=== PATIENT | female | born 1975 | race Caucasian/White ===

== ENCOUNTER 2016-05-23 10:21 | Emergency (ER) | payer OTHER ==
[2016-05-23 10:42] VITALS: BP 167/92
[2016-05-23] MEDS ORDERED: Lidocaine 1% with EPINEPHrine 1:100,000 50 ML MDV INFILT STA (10:50)
--- NOTE | 2016-05-23 11:18 | EDM.PDOC ---
ED HPI ENT - General Chief Complaint: ENT Problem Stated Complaint: CHIN SWELLING, THROAT HURTS Time Seen by Provider: 05/23/16 10:39 Source: Reports: Patient History Limitations: Reports: No limitations - History of Present Illness INITIAL COMMENTS - FREE TEXT/NARRATIVE: History of present illness: [41-year-old female presenting with a tooth abscess that's extending into her right chin. She's had no fevers or chills but she is having a lot of pain. She does not have an appointment with a dentist as of yet.] Review of systems: As per history of present illness and below otherwise all systems reviewed and negative. Past medical history: As per history of present illness and as reviewed below otherwise noncontributory. Surgical history: As per history of present illness and as reviewed below otherwise noncontributory. Social history: No reported history of drug or alcohol abuse. Family history: As per history of present illness and as reviewed below otherwise noncontributory. Physical exam: HEENT: Atraumatic, normocephalic, pupils reactive, negative for conjunctival pallor or scleral icterus, mucous membranes moist, throat clear, neck supple, nontender, trachea midline. No lymphadenopathy. Her dentition are in very poor repair with multiple cavities especially of the lower jaw on the right. She has obvious swelling of the right chin but slightly warm and firm Lungs: Clear to auscultation, breath sounds equal bilaterally Heart: S1S2, regular Abdomen: Soft, nondistended, nontender. Negative for masses or hepatosplenomegaly. Extremities: Atraumatic, Neuro: Awake, alert, oriented. Cranial nerves II through XII unremarkable. Cerebellum unremarkable. Exam nonfocal. Diagnostics: [After chlorhexidine prep 2 mL of 1% lidocaine with epinephrine was injected into the swollen area of her chin and an 18-gauge introduced into this presumed abscess in 2 locations but no pus was returned] Therapeutics: [] Impression: [Abscess extending into the chin] Plan: [She is placed on Pen-Vee K 500 mg 1 by mouth 4 times a day for 10 days and [place] 5/325 one to 2 by mouth every 4 hours when necessary pain #20 no refill she will need to followup with a dentist. She will also need to put hot packs on this swollen area of her chin] Definitive disposition and diagnosis as appropriate pending reevaluation and review of above. 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: Musculoskeletal History: Reports: Fracture - Infectious Disease History Infectious Disease History: Reports: Chicken pox - Past Surgical History GI Surgical History: Reports: Bariatric procedure, Cholecystectomy Female Surgical History: Reports: section Musculoskeletal Surgical History: Reports: Other (see below) Other Musculoskeletal Surgeries/Procedures:: surgery on right ankle Social & Family History - Tobacco Use Smoking Status *Q: Current Every Day Smoker Years of Tobacco use: 2 Packs/Tins Daily: 0.5 - Caffeine Use Caffeine Use: Reports: Soda - Recreational Drug Use Recreational Drug Use: No ED ROS ENT - Review of Systems Review Of Systems: ROS reveals no pertinent complaints other than HPI. ED EXAM, ENT - Physical Exam Exam: See Below Course - Vital Signs Last Recorded V/S: Last Vital Signs Temp 36.9 C 05/23/16 10:41 Pulse 86 05/23/16 10:41 Resp 14 05/23/16 10:41 BP 167/92 H 05/23/16 10:41 Pulse Ox 96 05/23/16 10:41 - Orders/Labs/Meds Meds: Medications Discontinued Medications Generic Name Dose Route Start Last Admin Trade Name Freq PRN Reason Stop Dose Admin Lidocaine/Epinephrine 10 ml 05/23/16 10:50 05/23/16 10:59 Xylocaine 1% With Epinephrine 1:100,000 INFILT 05/23/16 10:51 10 ml NOW STA Administration Departure - Departure Time of Disposition: 11:17 Disposition: Home, Self-Care 01 Condition: good Clinical Impression: Abscessed tooth Forms: ED Department Discharge Additional Instructions: Please use hot packs on your swollen chin 4 times a day 20 minutes at a time. It may come to ahead and drain out pus which would be a good thing to happen. You will need to follow up with a dentist so for definitive care.
== END 2016-05-23 11:24 | disposition home or self-care (01) ==
LOC: JP.ED 10:21
DX: K04.7 Periapical abscess without sinus (principal); F17.210 Nicotine dependence, cigarettes, uncomplicated; Z88.1 Allergy status to other antibiotic agents; Z79.899 Other long term (current) drug therapy; Z90.49 Acquired absence of other specified parts of digestive tract; Z98.890 Other specified postprocedural states
CPT/HCPCS: 41800; 99283-25

== ENCOUNTER 2016-07-28 08:26 | Day surgery (SDC) | payer OTHER ==
[~2016-07-28 08:26] MED LIST: Glycopyrrolate 0.2 MG/ML 2 ML SYRINGE IVPUSH ONE
[2016-07-28] MEDS ORDERED: fentaNYL 100 MCG/2 ML SDV ONE (08:27)
[2016-07-28] MEDS ORDERED: Propofol 200 MG/20 ML SDV ONE (08:27)
[2016-07-28] MEDS ORDERED: Midazolam 1 MG/ML 2 ML SDV ONE (08:28)
[2016-07-28] MEDS ORDERED: Lactated Ringers 1,000 ML IV SCH (08:30)
[2016-07-28] MEDS ORDERED: Glycopyrrolate 0.2 MG/ML 2 ML SYRINGE IVPUSH ONE (09:00)
[2016-07-28] MEDS ORDERED: Cyanocobalamin (Vitamin B12) 1,000 MCG/ML SDV IM ONE (09:00)
[2016-07-28] MEDS ORDERED: MVI, Adult with Vitamin K 10 ML, Thiamine 200 MG, Chromium/Copper/Mang/Selen/Zn 1 ML in... IV ONE ×4 (09:30)
[2016-07-28] MEDS ORDERED: Sodium Chloride 0.9% 1,000 ML IV SCH (09:39)
[2016-07-28] MEDS ORDERED: Hydrocortisone Sodium Succinate 100 MG/2 ML SDV IV PRN (15:00)
[2016-07-28] MEDS ORDERED: Famotidine 20 MG/2 ML SDV IV PRN (15:00)
[2016-07-28] MEDS ORDERED: diphenhydrAMINE 50 MG/ML SDV IVPUSH PRN (15:00)
[2016-07-28 15:26] VITALS: BP 140/73
--- NOTE | 2016-08-07 12:27 | OR ---
DATE OF PROCEDURE: 07/28/2016 PREOPERATIVE DIAGNOSIS: Anemia status post gastric bypass. POSTOPERATIVE DIAGNOSIS: Anemia status post gastric bypass with normal upper GI endoscopic examination, status post gastric bypass. OPERATIVE PROCEDURE: Upper GI endoscopy with biopsies of gastric pouch for CLOtest. ANESTHESIA: IV sedation. INDICATION FOR PROCEDURE: This is a 41-year-old female status post previous Iman-en-Y gastric bypass, presenting with profound anemia with hemoglobin of 6.6 and a very low ferritin level. The patient is admitted today for transfusion of 2 units packed RBCs along with iron infusion and an upper endoscopy. Potential risks of the upper endoscopy including bleeding and perforation were discussed, and the patient wishes to proceed. DETAILS OF PROCEDURE: The patient was taken to the operating room and placed in a left lateral decubitus position. IV sedation was administered, after which the upper GI endoscope was passed orally through the length of esophagus into the gastric pouch and from there through the gastrojejunostomy, 20 cm into the Iman limb. The findings included a normal appearing upper GI endoscopy. The esophagus, EG junction, gastric pouch, gastrojejunostomy, and Iman limb were all entirely normal with no areas of stricturing or inflammation and no blood or bleeding seen. The scope was then withdrawn till the gastric pouch where biopsies taken for CLOtest for H. pylori. Minimal bleeding from the biopsy site was seen and the procedure then concluded. The patient will be receiving the blood transfusion and Feraheme today and reschedule for another infusion of Feraheme in 1 week. She will also be started on Vitron-C 1 q.d. She has not been on any iron supplementation previously. She may have some gastritis or bleeding from the bypassed portion of the stomach or duodenum. Given this, we will get her on omeprazole 20 mg a day and she should be following up with Kathryn Wright in 2 weeks with a CBC and ferritin level to be obtained at that time. Errol Gonsalez MD /[id number]
== END 2016-07-28 16:14 | disposition home or self-care (01) ==
LOC: JP.SDS 08:26
PROVIDERS: ATTEND Surgery
DX: D64.9 Anemia, unspecified (principal); Z98.84 Bariatric surgery status; Z88.1 Allergy status to other antibiotic agents; Z88.8 Allergy status to other drugs, medicaments and biological substances
CPT/HCPCS: 36415; 36430; 43239; 82728; 86850; 86900; 86901; 86920; 86922; 87081; J2250; J2704; J3010; J3411; J3420; J7030; J7040; J7120; P9016; Q0138

== ENCOUNTER 2016-08-08 15:50 | Emergency (ER) | payer OTHER ==
[2016-08-08] MEDS ORDERED: HYDROmorphone 0.5 MG/0.5 ML Syringe IVPUSH ONE (16:37)
[2016-08-08] MEDS ORDERED: Ondansetron 4 MG/2 ML SDV IVPUSH ONE (16:37)
[2016-08-08] MEDS ORDERED: Sodium Chloride 0.9% 1,000 ML IV SCH (16:45)
--- NOTE | 2016-08-08 16:46 | EDM.PDOC ---
ED HPI GENERAL MEDICAL PROBLEM - General Chief Complaint: Abdominal Pain Stated Complaint: SEVERE ABD PAIN Time Seen by Provider: 08/08/16 16:20 Source of Information: Reports: Patient History Limitations: Reports: No Limitations - History of Present Illness INITIAL COMMENTS - FREE TEXT/NARRATIVE: Patient presents today with complaints of acute abdominal pain that started today while she was at work. Ewelina states the pain was so severe that it made her stop what she was doing and was not able to ambulate. She attempted to have a bowel movement and felt a great deal of pressure without any results. She reports the pain as constant pressure is sharp and stabbing. She did have a BM this am, small pieces in small amount. She reports feelings of bloat for the past 24 to 48 hours. Last PO intake 1030 today a few bites of a burrito. 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) (She has tried OTC laxatives without result) - Related Data Allergies Allergy/AdvReac Type Severity Reaction Status Date / Time doxycycline Allergy Rash Verified 08/04/16 10:42 erythromycin base Allergy Rash Verified 08/04/16 10:42 procaine [From Novocain] Allergy Rash Verified 08/04/16 10:42 Home Meds: Home Meds Cyanocobalamin (Vitamin B-12) [Vitamin B12] 5,000 mcg PO DAILY 12/02/15 [History ] Multivitamin [Multi-Vitamin Daily] 1 tab PO DAILY 12/02/15 [History] Iron,Carbonyl/Ascorbic Acid [Vitron-C Tablet] 1 each PO DAILY 08/04/16 [History] Past Medical History Gastrointestinal History: Reports: Other (See Below) Other Gastrointestinal History: RNY 2002 Genitourinary History: Reports: None 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: Musculoskeletal History: Reports: Fracture Endocrine/Metabolic History: Reports: Vitamin D Deficiency Hematologic History: Reports: Anemia, B12 Deficiency - Infectious Disease History Infectious Disease History: Reports: Chicken Pox - Past Surgical History HEENT Surgical History: Reports: Oral Surgery GI Surgical History: Reports: Bariatric Procedure, Cholecystectomy, Colonoscopy , EGD Female Surgical History: Reports: Section, Tubal Ligation Social & Family History - Family History Cardiac: Reports: [place] - Tobacco Use Smoking Status *Q: Current Every Day Smoker Years of Tobacco use: 3 Packs/Tins Daily: 1 Used Tobacco, but Quit: No Second Hand Smoke Exposure: Yes - Caffeine Use Caffeine Use: Reports: Soda - Recreational Drug Use Recreational Drug Use: No ED ROS GENERAL - Review of Systems Review Of Systems: See Below Constitutional: Reports: Decreased Appetite, Other (Abdominal bloating and acute severe pain. ). Denies: Fever, Chills, Malaise, Weakness, Fatigue HEENT: Reports: No Symptoms, Contact Lenses (Has recently had two iron infusion and blood transfusion for low hgb. She is currently taking B12, iron supplement. ) Respiratory: Denies: Shortness of Breath, Wheezing, Cough, Sputum Cardiovascular: Denies: Chest Pain, Blood Pressure Problem, Dyspnea on Exertion , Edema, Lightheadedness, Palpitations, PND, Syncope Endocrine: Reports: No Symptoms GI/Abdominal: Reports: Abdominal Pain, Constipation, Decreased Appetite, Distension, Flatus, Nausea. Denies: Black Stool, Bloody Stool, Diarrhea, Hematemesis, Hematochezia, Mucous in Stool, Stool Incontinence, Vomiting : Reports: No Symptoms Musculoskeletal: Reports: No Symptoms Skin: Denies: Cyanosis, Bruising, Rash, Erythema, Lesions Neurological: Reports: No Symptoms Psychiatric: Reports: No Symptoms Hematologic/Lymphatic: Reports: No Symptoms Immunologic: Reports: No Symptoms ED EXAM, GI/ABD - Physical Exam Exam: See Below Exam Limited By: No Limitations General Appearance: Alert, WD/WN, Moderate Distress Eyes: Bilateral: Normal Appearance Ears: Normal External Exam, Normal Canal, Hearing Grossly Normal, Normal TMs Nose: Normal Inspection, Normal Mucosa, No Blood Throat/Mouth: Normal Inspection, Normal Lips, Normal Teeth, Normal Gums, Normal Oropharynx, Normal Voice, No Airway Compromise Head: Atraumatic, Normocephalic Neck: Normal Inspection, Supple, Non-Tender, Full Range of Motion Respiratory/Chest: No Respiratory Distress, Lungs Clear, Normal Breath Sounds, No Accessory Muscle Use, Chest Non-Tender Cardiovascular: Normal Peripheral Pulses, Regular Rate, Rhythm, No Edema, No Gallop, No Murmur, No Rub GI/Abdominal: No Mass, Tenderness, Distention, Other (Decreased bowel sounds to RUQ/LLQ. ). No: Guarding, Rebound, Rigidity Back Exam: Normal Inspection, Full Range of Motion. No: CVA Tenderness (R), CVA Tenderness (L), Decreased Range of Motion Extremities: Normal Inspection, Normal Range of Motion, Non-Tender, No Pedal Edema, Normal Capillary Refill Neurological: Alert, Oriented, CN II-XII Intact, Normal Cognition, Normal Gait, No Motor/Sensory Deficits Psychiatric: Normal Affect, Normal Mood Skin Exam: Warm, Dry, Intact, Normal Color, No Rash Lymphatic: No Adenopathy Course - Vital Signs Last Recorded V/S: Last Vital Signs Temp 36.2 C 08/08/16 17:13 Pulse 81 08/08/16 17:13 Resp 16 08/08/16 17:13 BP 151/94 H 08/08/16 17:13 Pulse Ox 98 08/08/16 17:13 - Orders/Labs/Meds Orders: Active Orders 24 hr Category Date Time Status Abdomen Pelvis w Cont [CT] Stat Exams 08/08/16 16:44 Taken Labs: Laboratory Tests 08/08/16 08/08/16 08/08/16 Range/Units 16:47 16:47 16:53 WBC 6.3 (4.5-11.0) K/uL RBC 4.44 (3.30-5.50) M/uL Hgb 10.3 L (12.0-15.0) g/dL Hct 34.1 L (36.0-48.0) % MCV 77 L (80-98) fL MCH 23 L (27-31) pg MCHC 30 L (32-36) % Plt Count 305 (150-400) K/uL Neut % (Auto) 75 H (36-66) % Lymph % (Auto) 16 L (24-44) % [place] % (Auto) 7 H (2-6) % Eos % (Auto) 2 (2-4) % Baso % (Auto) 0 (0-1) % Sodium 132 L (140-148) mmol/L Potassium 3.5 L (3.6-5.2) mmol/L Chloride 98 L (100-108) mmol/L Carbon Dioxide 25 (21-32) mmol/L Anion Gap 12.5 (5.0-14.0) mmol/L BUN 4 L (7-18) mg/dL Creatinine 0.6 (0.6-1.0) mg/dL Est Cr Clr Drug Dosing 108.79 mL/min Estimated GFR (MDRD) > 60 (>60) Glucose 91 (74-106) mg/dL Calcium 9.0 (8.5-10.1) mg/dL Total Bilirubin 0.5 (0.2-1.0) mg/dL AST 36 (15-37) U/L ALT 42 (12-78) U/L Alkaline Phosphatase 57 (46-116) U/L Total Protein 7.6 (6.4-8.2) g/dL Albumin 3.8 (3.4-5.0) g/dL Globulin 3.8 H (2.3-3.5) g/dL Albumin/Globulin Ratio 1.0 L (1.2-2.2) Urine Color Yellow Urine Appearance Clear Urine pH 5.0 (4.5-8.0) Ur Specific [place] 1.020 (1.008-1.030) Urine Protein Negative (NEGATIVE) mg/dL Urine Glucose (UA) Normal (NEGATIVE) mg/dL Urine Ketones Negative (NEGATIVE) mg/dL Urine Occult Blood Negative (NEGATIVE) Urine Nitrite Negative (NEGATIVE) Urine Bilirubin Negative (NEGATIVE) Urine Urobilinogen Normal (NORMAL) mg/dL Ur Leukocyte Esterase Negative (NEGATIVE) Urine RBC 0-5 (0-5) Urine WBC 0-5 (0-5) Ur Epithelial Cells Few Amorphous Sediment Not seen Urine Bacteria Not seen Urine Mucus Rare Lab work reviewed with patient, all her questions answered. Meds: Medications Discontinued Medications Generic Name Dose Route Start Last Admin Trade Name Freq PRN Reason Stop Dose Admin Hydromorphone HCl 0.5 mg 08/08/16 16:37 08/08/16 17:03 Dilaudid IVPUSH 08/08/16 16:38 0.5 mg ONETIME ONE Administration Sodium Chloride 1,000 mls @ 125 mls/hr 08/08/16 16:45 08/08/16 17:04 Normal Saline IV 125 mls/hr ASDIRECTED BILLY Administration Sodium Chloride 78 mls @ 3 mls/sec 08/08/16 17:13 Normal Saline IV 08/08/16 17:14 ONETIME ONE Iopamidol 124 ml 08/08/16 17:15 08/08/16 17:27 Isovue-300 (61%) IV 150 ml . DIRECTED BILLY Administration Ondansetron HCl 4 mg 08/08/16 16:37 08/08/16 17:03 Zofran IVPUSH 08/08/16 16:38 4 mg ONETIME ONE Administration Sodium Chloride 10 ml 08/08/16 17:13 08/08/16 17:27 Saline Flush FLUSH 10 ml ONETIME PRN Administration PER RADIOLOGY PROTOCOL - Re-Assessments/Exams Free Text/Narrative Re-Assessment/Exam: 08/08/16 18:10 Patient resting on stretcher, reports nausea and pain have improved. Awaiting CT results. Departure - Departure Time of Disposition: 19:16 Disposition: Home, Self-Care 01 Condition: fair Clinical Impression: Abdominal pain, Constipation - Discharge Information Instructions: Constipation, Adult, [id number] Referrals: Rick James MD [Primary Care Provider] - Forms: ED Department Discharge Additional Instructions: Patient CT scan identified constipation and 4 cm cyst to left ovary. You can take docusate sodium 100mg by mouth twice a day for constipation. You can also take miralax 1 capful in 8oz of water or juice twice a day for 1 to 2 days and then daily to promote bowel movement. Docusate sodium and miralax can be bought over the counter. Keep yourself hydrated. Follow up as directed with your primary provider. You may take ibuprofen or acetaminophen for pain as needed. - My Orders Last 24 Hours: My Active Orders 08/08/16 16:44 Abdomen Pelvis w Cont [CT] Stat - Assessment/Plan Last 24 Hours: My Active Orders 08/08/16 16:44 Abdomen Pelvis w Cont [CT] Stat Assessment:: Significant increase in recent intake of iron supplementation. Constipation, left ovarian cyst. Plan: Patient will be treated for constipation. She will return to her primary care provider as directed.
[2016-08-08] MEDS ORDERED: Sodium Chloride 0.9% 10 ML Syringe FLUSH PRN (17:13)
[2016-08-08 17:15] VITALS: BP 151/94
[2016-08-08] MEDS ORDERED: Iopamidol 612 MG/ML 150 ML Bottle IV SCH (17:15)
== END 2016-08-08 19:27 | disposition home or self-care (01) ==
LOC: JP.ED 15:50
DX: R10.9 Unspecified abdominal pain (principal); K59.00 Constipation, unspecified; F17.210 Nicotine dependence, cigarettes, uncomplicated; Z79.899 Other long term (current) drug therapy; Z90.49 Acquired absence of other specified parts of digestive tract; Z98.84 Bariatric surgery status; Z98.51 Tubal ligation status; Z88.1 Allergy status to other antibiotic agents
CPT/HCPCS: 36415; 74177; 80053; 81001; 85025; 96361; 96374; 96375; 99284; J1170; J2405; J7040; J7050

== ENCOUNTER 2017-11-20 11:00 | Emergency (ER) | payer SELFPAY ==
[2017-11-20 11:14] VITALS: BP 178/109
[2017-11-20] MEDS ORDERED: Ibuprofen 800 MG Tab PO ONE (11:18)
[2017-11-20] MEDS ORDERED: Acetaminophen/HYDROcodone 325-5 MG Tab PO ONE (11:56)
--- NOTE | 2017-11-20 12:04 | EDM.PDOC ---
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 Pain to the right hand with ecchymosis and edema. Left Hand Pain Score (Numeric/FACES): 8 - Related Data Allergies Allergy/AdvReac Type Severity Reaction Status Date / Time doxycycline Allergy Rash Verified 08/04/16 10:42 erythromycin base Allergy Rash Verified 08/04/16 10:42 procaine [From Novocain] Allergy Rash Verified 08/04/16 10:42 Home Meds: Home Meds Cyanocobalamin (Vitamin B-12) [Vitamin B12] 5,000 mcg PO DAILY 12/02/15 [History ] Multivitamin [Multi-Vitamin Daily] 1 tab PO DAILY 12/02/15 [History] Iron,Carbonyl/Ascorbic Acid [Vitron-C Tablet] 1 each PO DAILY 08/04/16 [History] Past Medical History Gastrointestinal History: Reports: Other (See Below) Other Gastrointestinal History: RNY 2002 Genitourinary History: Reports: None 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: Musculoskeletal History: Reports: Fracture Endocrine/Metabolic History: Reports: Vitamin D Deficiency Hematologic History: Reports: Anemia, B12 Deficiency - Infectious Disease History Infectious Disease History: Reports: Chicken Pox - Past Surgical History HEENT Surgical History: Reports: Oral Surgery GI Surgical History: Reports: Bariatric Procedure, Cholecystectomy, Colonoscopy , EGD Female Surgical History: Reports: Section, Tubal Ligation Social & Family History - Family History Cardiac: Reports: [place] - Tobacco Use Smoking Status *Q: Current Every Day Smoker Years of Tobacco use: 5 Packs/Tins Daily: 1 - Caffeine Use Caffeine Use: Reports: Coffee - Alcohol Use Number of Drinks Per Day: 2 Review of Systems - Review of Systems Review Of Systems: See Below Constitutional: Reports: No Symptoms Eyes: Reports: No Symptoms Ears: Reports: No Symptoms Nose: Reports: No Symptoms Respiratory: Reports: No Symptoms Cardiovascular: Reports: No Symptoms GI/Abdominal: Reports: No Symptoms Musculoskeletal: Reports: Hand Pain, Other (Right hand pain/crush injury) Skin: Reports: Bruising, Other (ecchymosis) Neurological: Reports: No Symptoms Psychiatric: Reports: No Symptoms ED EXAM, GENERAL - Physical Exam Exam: See Below Free Text/Narrative:: Ewelina is an alert and oriented 42 year old female 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 Exam Limited By: No Limitations General Appearance: Alert, WD/WN, Mild Distress Eye Exam: Bilateral Eye: EOMI, Normal Inspection Ears: Normal External Exam, Normal Canal, Hearing Grossly Normal, Normal TMs Throat/Mouth: Normal Inspection, Normal Lips, Normal Teeth, Normal Gums, Normal Oropharynx, Normal Voice, No Airway Compromise Head: Atraumatic, Normocephalic Neck: Normal Inspection, Supple, Non-Tender, Full Range of Motion. No: Lymphadenopathy (R), Lymphadenopathy (L) Respiratory/Chest: No Respiratory Distress, Lungs Clear, Normal Breath Sounds, No Accessory Muscle Use, Chest Non-Tender Cardiovascular: Normal Peripheral Pulses, Regular Rate, Rhythm, No Edema, No Murmur, No Rub Peripheral Pulses: 2+: Radial (L), Radial (R), Dorsalis Pedis (L), Dorsalis Pedis (R) GI/Abdominal: No Distention Back Exam: Normal Inspection, Full Range of Motion. No: CVA Tenderness (R), CVA Tenderness (L) Extremities: No Pedal Edema, Normal Capillary Refill, Other (Decreased ROM, pain /tenderness to Right hand with ecchymosis an slight edema. Full sensation to right fingers x 5. No sign of compartment syndrome. ) Neurological: Alert, Oriented, CN II-XII Intact, Normal Cognition, Normal Gait, Normal Reflexes, No Motor/Sensory Deficits Psychiatric: Normal Affect, Normal Mood Skin Exam: Warm, Dry, Intact, Ecchymosis, Other (slight edema to right dorsum of hand) Lymphatic: No Adenopathy ED TRAUMA EXTREMITY PROCEDURES - Splinting Right Upper Extremity Splint Site: Volar splint to right hand Pre-Procedure NV Status: Normal Post-Procedure NV Status: Normal Splint Material: Fiberglass Splint Design: Volar Applied & Form Fitted By: Provider Provider Post-Splint Application NV Check: NV Status Normal, Good Position Complications: No Course - Vital Signs Last Recorded V/S: Last Vital Signs Temp 36.3 C 11/20/17 11:09 Pulse 111 H 11/20/17 11:09 Resp 18 11/20/17 11:09 BP 178/109 H 11/20/17 11:09 Pulse Ox - Orders/Labs/Meds Orders: Active Orders 24 hr Category Date Time Status Hand Comp Min 3V Rt [CR] Stat Exams 11/20/17 11:18 Taken Meds: Medications Discontinued Medications Generic Name Dose Route Start Last Admin Trade Name Mely PRN Reason Stop Dose Admin Hydrocodone Bitart/Acetaminophen 1 tab 11/20/17 11:56 11/20/17 12:02 [place] 325-5 Mg PO 11/20/17 11:57 1 tab ONETIME ONE Administration Ibuprofen 800 mg 11/20/17 11:18 11/20/17 11:23 Motrin PO 11/20/17 11:19 800 mg ONETIME ONE Administration - Radiology Interpretation Free Text/Narrative:: Right hand x-rays reviewed, wet read. No acute findings/fractures. Images pushed to [facility]. Per Ying ESCOBAR, volar splint to right hand and follow up with ORTHO next Wednesday , Wednesday or . Patient notified, she is in agreement. + Departure - Departure Time of Disposition: 12:15 Disposition: Home, Self-Care 01 Condition: Good Clinical Impression: Crushing injury of right hand - Discharge Information *PRESCRIPTION DRUG MONITORING PROGRAM REVIEWED*: No *COPY OF PRESCRIPTION DRUG MONITORING REPORT IN PATIENT FARHAT: No Instructions: Crush Injury of the Hand Referrals: Rick James MD [Primary Care Provider] - Forms: ED Department Discharge, ED Return to Work/School Form Additional Instructions: You have been evaluated and treated for crush injury to the right hand. No activity with Right hand. No work for 7 days. Rest, splint the hand. Keep splint on at all times until cleared by ORTHO. Ice to the hand for 20 minutes off for 15 minutes as frequently as possible for the first 3 days of injury. Ibuprofen 800mg by mouth three times a day as needed for pain. Acetaminophen 1000mg by mouth three times a day as needed for pain. Keep the hand elevated above to heart to decrease pain and swelling. Follow up with ORTHO Ying Burger or Delio Chen at [facility] next Wednesday, Wednesday or for follow up. Return for worsening, issues or concerns. - My Orders Last 24 Hours: My Active Orders 11/20/17 11:18 Hand Comp Min 3V Rt [CR] Stat - Assessment/Plan Last 24 Hours: My Active Orders 11/20/17 11:18 Hand Comp Min 3V Rt [CR] Stat Assessment:: Crush injury of right hand Plan: Patient evaluated and treated for crush injury to the right hand. No activity with Right hand. No work for 7 days. Rest, splint the hand. Keep splint on at all times until cleared by ORTHO. Ice to the hand for 20 minutes off for 15 minutes as frequently as possible for the first 3 days of injury. Ibuprofen 800mg by mouth three times a day as needed for pain. Acetaminophen 1000mg by mouth three times a day as needed for pain. Keep the hand elevated above to heart to decrease pain and swelling. Follow up with ORTHO Ying Burger or Delio Chen at [facility] next Wednesday, Wednesday or for follow up. Return for worsening, issues or concerns.
--- NOTE | 2017-11-22 08:50 | CR ---
Hand Comp Min 3V Rt CLINICAL HISTORY: Injury FINDINGS: There is some interphalangeal joint space narrowing. There is also some periarticular spur ring at the first MCP joint. There are tiny ossific densities along the radial aspect of the first MC P and phalangeal joints. The these are likely related to osteophytic change. Small avulsions are not excluded. 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 Tiny avulsions felt less likely
== END 2017-11-20 12:36 | disposition home or self-care (01) ==
LOC: JP.ED 11:00
DX: S67.21XA Crushing injury of right hand, initial encounter (principal); F17.210 Nicotine dependence, cigarettes, uncomplicated; Z88.1 Allergy status to other antibiotic agents; Z88.8 Allergy status to other drugs, medicaments and biological substances; W23.1XXA Caught, crushed, jammed, or pinched between stationary objects, initial encounter; Y99.0 Civilian activity done for income or pay
CPT/HCPCS: 29125; 73130; 99284; A9270

== ENCOUNTER 2018-07-13 08:17 | Emergency (ER) | payer BC, OTHER ==
[2018-07-13 08:32] VITALS: BP 135/79
--- NOTE | 2018-07-13 08:56 | EDM.PDOC ---
ED HPI GENERAL MEDICAL PROBLEM - General Chief Complaint: General Stated Complaint: SOB, HEADACHE, POSSIBLE NEEDS BLOOD TRANSFUSION Time Seen by Provider: 07/13/18 08:38 Source of Information: Reports: Patient, Old Records, RN Notes Reviewed History Limitations: Reports: No Limitations - History of Present Illness INITIAL COMMENTS - FREE TEXT/NARRATIVE: 43-year-old female presents emergency department today complaint of fatigue, she has been having difficulty with vaginal bleeding over the last couple weeks has stopped at this time. Has been evaluated by her primary care felt to have iron deficiency anemia started on iron tablets as well as consultation with OB/ DIESEL POWER MECHANIC which happens on the of this month. Was recently checked in the clinic 2 days prior hemoglobin at that time was 7.1. She states she continues to have fatigue feels weak and gets short of breath with any amount of exertion Headache Pain Score (Numeric/FACES): 10 - Related Data Allergies Allergy/AdvReac Type Severity Reaction Status Date / Time doxycycline Allergy Rash Verified 08/04/16 10:42 erythromycin base Allergy Rash Verified 08/04/16 10:42 procaine [From Novocain] Allergy Rash Verified 08/04/16 10:42 Home Meds: Home Meds Cyanocobalamin (Vitamin B-12) [Vitamin B12] 5,000 mcg PO DAILY 12/02/15 [History ] Multivitamin [Multi-Vitamin Daily] 1 tab PO DAILY 12/02/15 [History] Iron,Carbonyl/Ascorbic Acid [Vitron-C Tablet] 1 each PO DAILY 08/04/16 [History] Past Medical History Gastrointestinal History: Reports: Other (See Below) Other Gastrointestinal History: RNY 2002 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: Musculoskeletal History: Reports: Fracture Endocrine/Metabolic History: Reports: Vitamin D Deficiency Hematologic History: Reports: Anemia, B12 Deficiency - Infectious Disease History Infectious Disease History: Reports: Chicken Pox - Past Surgical History HEENT Surgical History: Reports: Oral Surgery GI Surgical History: Reports: Bariatric Procedure, Cholecystectomy, Colonoscopy , EGD Female Surgical History: Reports: Section, Tubal Ligation Social & Family History - Family History Cardiac: Reports: DC - Tobacco Use Smoking Status *Q: Current Every Day Smoker Years of Tobacco use: 5 Packs/Tins Daily: 0.5 - Caffeine Use Caffeine Use: Reports: Soda - Recreational Drug Use Recreational Drug Use: No ED ROS GENERAL - Review of Systems Review Of Systems: See Below Constitutional: Reports: Weakness, Fatigue HEENT: Reports: No Symptoms Respiratory: Reports: Shortness of Breath Cardiovascular: Reports: Chest Pain, Dyspnea on Exertion GI/Abdominal: Reports: Constipation Musculoskeletal: Reports: No Symptoms Skin: Reports: No Symptoms Neurological: Reports: No Symptoms ED EXAM, GENERAL - Physical Exam Exam: See Below Free Text/Narrative:: General: Female, not in any distress, alert and oriented x3 HEENT: head is atraumatic normocephalic, eyes pupils equal round reactive to light, sclera clear pale conjunctiva. Ears tympanic membranes clear and mckeon landmarks and light reflex are present bilaterally canals are clear. Nose no septal deviation , nares are clear, no blood present. Mouth mucosa is moist and pink no erythema or exudate noted in soft palate, tongue is midline uvula is midline, dentition is intact. Neck: Supple no thyromegaly no tracheal deviation. Nodes: Cervical nodes subclavicular nodes nontender no palpable lymphadenopathy noted. Lungs: clear to auscultation bilaterally with symmetrical respirations, no adventitious noise appreciated. CV: Regular rate and rhythm S1 and S2 appreciated no murmurs rubs or gallops noted. Abdomen: Soft, nontender, no palpable masses or organomegaly appreciated, no distention no guarding bowel sounds are present,. Neuro: GCS 15, cranial nerves II through XII intact grossly Skin: Warm and dry, intact Extremities: No lower extremity edema appreciated, Course - Vital Signs Last Recorded V/S: Last Vital Signs Temp 97.7 F 07/13/18 08:31 Pulse 102 H 07/13/18 08:31 Resp 16 07/13/18 08:31 BP 135/79 07/13/18 08:31 Pulse Ox 100 07/13/18 08:31 - Orders/Labs/Meds Orders: Active Orders 24 hr Category Date Time Status EKG Documentation Completion [RC] ASDIRECTED Care 07/13/18 08:54 Active Peripheral IV Care [RC] . DIRECTED Care 07/13/18 08:52 Active COPPER, SERUM Stat Lab 07/13/18 10:54 Ordered FERRITIN [CHEM] Stat Lab 07/13/18 10:54 Ordered FOLATE (FOLIC ACID), SERUM Urgent Lab 07/13/18 10:54 Ordered VITAMIN A, SERUM Stat Lab 07/13/18 10:54 Ordered VITAMIN B12 [CHEM] Stat Lab 07/13/18 10:54 Ordered VITAMIN D,25-HYDROXY [CHEM] Stat Lab 07/13/18 10:54 Ordered ZINC, PLASMA OR SERUM Stat Lab 07/13/18 10:54 Ordered Sodium Chloride 0.9% [Saline Flush] Med 07/13/18 08:52 Active 10 ml FLUSH ASDIRECTED PRN Peripheral IV Insertion Adult [OM.PC] Urgent Oth 07/13/18 08:52 Ordered EKG 12 Lead [EK] Routine Ther 07/13/18 08:54 Ordered Medication Orders Sodium Chloride (Saline Flush) 10 ml FLUSH ASDIRECTED PRN PRN Reason: Keep Vein Open Last Admin: 07/13/18 09:29 Dose: 10 ml Admin: 07/13/18 09:06 Dose: 10 ml Labs: Laboratory Tests 07/13/18 07/13/18 07/13/18 Range/Units 09:09 09:09 09:09 WBC 2.5 L (4.5-11.0) K/uL RBC 2.32 L (3.30-5.50) M/uL Hgb 7.0 L D (12.0-15.0) g/dL Hct 23.1 L (36.0-48.0) % MCV 100 H (80-98) fL MCH 30 (27-31) pg MCHC 30 L (32-36) % Plt Count 172 (150-400) K/uL Neut % (Auto) 66 (36-66) % Lymph % (Auto) 20 L (24-44) % Villalba % (Auto) 13 H (2-6) % Eos % (Auto) 1 L (2-4) % Baso % (Auto) 0 (0-1) % Sodium 139 L (140-148) mmol/L Potassium 3.5 L (3.6-5.2) mmol/L Chloride 103 (100-108) mmol/L Carbon Dioxide 23 (21-32) mmol/L Anion Gap 16.5 H (5.0-14.0) mmol/L BUN 1 L D (7-18) mg/dL Creatinine 0.7 (0.6-1.0) mg/dL Est Cr Clr Drug Dosing 91.32 mL/min Estimated GFR (MDRD) > 60 (>60) Glucose 149 H (74-106) mg/dL Calcium 8.0 L (8.5-10.1) mg/dL Total Bilirubin 0.7 (0.2-1.0) mg/dL AST 218 H D (15-37) U/L ALT 82 H (12-78) U/L Alkaline Phosphatase 250 H D (46-116) U/L Troponin I 0.038 (0.000-0.056) ng/mL NT-Pro-B Natriuret Pep 208 H (5-125) pg/mL Total Protein 5.7 L (6.4-8.2) g/dL Albumin 1.8 L (3.4-5.0) g/dL Globulin 3.9 H (2.3-3.5) g/dL Albumin/Globulin Ratio 0.5 L (1.2-2.2) Meds: Medications Generic Name Dose Route Start Last Admin Trade Name Freq PRN Reason Stop Dose Admin Sodium Chloride 10 ml 07/13/18 08:52 07/13/18 09:29 Saline Flush FLUSH 10 ml ASDIRECTED PRN Administration Keep Vein Open Discontinued Medications Generic Name Dose Route Start Last Admin Trade Name Freq PRN Reason Stop Dose Admin Ketorolac Tromethamine 30 mg 07/13/18 09:10 07/13/18 09:26 Toradol IVPUSH 07/13/18 09:11 30 mg ONETIME ONE Administration Departure - Departure Time of Disposition: 11:00 Disposition: Still A Patient 30 Condition: Fair Clinical Impression: Anemia Qualifiers: Anemia type: other cause Other causes of anemia: other cause, not classified Qualified Code(s): D64.89 - Other specified anemias - Discharge Information Referrals: Rick James MD [Primary Care Provider] - Forms: ED Department Discharge - My Orders Last 24 Hours: My Active Orders 07/13/18 08:52 Peripheral IV Care [RC] . DIRECTED Sodium Chloride 0.9% [Saline Flush] 10 ml FLUSH ASDIRECTED PRN Peripheral IV Insertion Adult [OM.PC] Urgent 07/13/18 08:54 EKG Documentation Completion [RC] ASDIRECTED EKG 12 Lead [EK] Routine 07/13/18 10:54 COPPER, SERUM Stat FERRITIN [CHEM] Stat FOLATE (FOLIC ACID), SERUM Urgent VITAMIN A, SERUM Stat VITAMIN B12 [CHEM] Stat VITAMIN D,25-HYDROXY [CHEM] Stat ZINC, PLASMA OR SERUM Stat - Assessment/Plan Last 24 Hours: My Active Orders 07/13/18 08:52 Peripheral IV Care [RC] . DIRECTED Sodium Chloride 0.9% [Saline Flush] 10 ml FLUSH ASDIRECTED PRN Peripheral IV Insertion Adult [OM.PC] Urgent 07/13/18 08:54 EKG Documentation Completion [RC] ASDIRECTED EKG 12 Lead [EK] Routine 07/13/18 10:54 COPPER, SERUM Stat FERRITIN [CHEM] Stat FOLATE (FOLIC ACID), SERUM Urgent VITAMIN A, SERUM Stat VITAMIN B12 [CHEM] Stat VITAMIN D,25-HYDROXY [CHEM] Stat ZINC, PLASMA OR SERUM Stat Plan: Assessment Acuity = acute Site and laterality = anemia complicated the patient with known history gastric bypass and recent heavy vaginal bleeding Etiology = possibly related to absorption and gastric bypass and vitamin intake Manifestations = dyspnea Location of injury = Home Lab values = WBC low at 2.5 consistent with leukopenia hemoglobin low at 7.0 consistent racker chromic anemia calcium low at 8.0 consistent hypocalcemia AST elevated 218 ALT elevated a 82 consistent elevated liver enzymes troponin in the normal range 0.038 and BNP slightly elevated at 208 EKG demonstrates a sinus rhythm there is no signs of ischemia chest x-ray was unremarkable Plan Discussed the case with Dr. Gonsalez at 1040 recommending iron studies workup transfusion 1 unit as well as the gastric bypass banana bag with extra thymin will also recheck ferritin today if it is low will do iron transfusion This note was dictated using [employer] voice recognition software please call with any questions on syntax or grammar.
[2018-07-13] MEDS: Sodium Chloride 0.9% 10 ML Syringe FLUSH PRN ×2 (09:06→09:29)
[2018-07-13] MEDS ORDERED: Ketorolac 30 MG/ML SDV IVPUSH ONE (09:10)
--- NOTE | 2018-07-13 10:22 | CRLCR ---
INDICATION: Shortness of breath TECHNIQUE: Chest 1 view COMPARISON: None FINDINGS: Cardiovascular and mediastinum: Heart size and vasculature are normal in caliber and appearance. Lungs and pleural spaces: Lungs are clear. No sign of infiltrate or mass. No sign of pleural effusion. No pneumothorax. Bones and soft tissues: No significant findings. IMPRESSION: No acute or significant findings. Dictated by Meir Olivas MD @ Jul 13 2018 10:21AM Signed by Dr. Meir Olivas @ Jul 13 2018 10:22AM
== END 2018-07-13 11:10 | disposition home or self-care (01) ==
LOC: JP.ED 08:17
DX: D64.89 Other specified anemias (principal); F17.210 Nicotine dependence, cigarettes, uncomplicated; Z79.899 Other long term (current) drug therapy; Z88.1 Allergy status to other antibiotic agents; Z88.8 Allergy status to other drugs, medicaments and biological substances
CPT/HCPCS: 36415; 71045; 80053; 82306; 82525; 82607; 82728; 82746; 83880; 84484; 84590; 84630; 85025; 93005; 96374; 99284; J1885

== ENCOUNTER 2018-07-16 05:55 | Inpatient (IN) | payer BC ==
[2018-07-16] MEDS ORDERED: Scopolamine 1.5 MG Transdermal Patch TOP ONE (06:15)
[2018-07-16] MEDS ORDERED: Gabapentin 300 MG Cap PO ONE (06:15)
[2018-07-16] MEDS ORDERED: Acetaminophen 500 MG Tab PO ONE (06:15)
[2018-07-16] MEDS ORDERED: Dextrose 5%-Lactated Ringers 1,000 ML IV SCH ×2 (07:00→12:30)
[2018-07-16] MEDS ORDERED: Albuterol/Ipratropium 3.0-0.5 MG/3 ML Neb Soln NEB ONE (07:00)
[2018-07-16] MEDS ORDERED: cefOXitin 2 GM Vial ONE (07:01)
[2018-07-16] MEDS ORDERED: Ketamine 500 MG/5 ML MDV IV SCH (07:45)
[2018-07-16] MEDS ORDERED: Ketamine 50 MG in Sodium Chloride 0.9% 49.5 ML IV SCH ×4 (07:45)
[2018-07-16] MEDS ORDERED: Rocuronium 50 MG/5 ML Vial ONE (07:49)
[2018-07-16] MEDS ORDERED: Dexamethasone 4 MG/ML SDV ONE (07:49)
[2018-07-16] MEDS ORDERED: Glycopyrrolate 0.2 MG/ML 5 ML MDV ONE (07:49)
[2018-07-16] MEDS ORDERED: Ondansetron 4 MG/2 ML SDV ONE (07:49)
[2018-07-16] MEDS ORDERED: Propofol 200 MG/20 ML SDV ONE (07:49)
[2018-07-16] MEDS ORDERED: Succinylcholine 200 MG/10 ML MDV ONE (07:49)
[2018-07-16] MEDS ORDERED: Neostigmine Methylsulfate 1 MG/ML 5 ML Syringe ONE (07:49)
[2018-07-16] MEDS ORDERED: cefOXitin 2 GM in Sodium Chloride 0.9% 50 ML IV ONE (08:00)
[2018-07-16] MEDS ORDERED: fentaNYL 100 MCG/2 ML SDV ONE (10:17)
[2018-07-16] MEDS ORDERED: Lactated Ringers 1,000 ML ONE (10:31)
[2018-07-16] MEDS ORDERED: hydrOXYzine HCl 100 MG/2 ML SDV IM ONE (11:13)
[2018-07-16] MEDS ORDERED: Naloxone 0.4 MG/ML SDV IV PRN (11:16)
[2018-07-16] MEDS ORDERED: fentaNYL 100 MCG/2 ML SDV IVPUSH ONE (11:19)
[2018-07-16] MEDS: HYDROmorphone/Normal Saline 15 MG/30 ML PCA IV PRN (11:24)
[2018-07-16] MEDS ORDERED: Albuterol/Ipratropium 3.0-0.5 MG/3 ML Neb Soln INH PRN (12:26)
[2018-07-16] MEDS: Gabapentin 300 MG Cap PO SCH ×2 (14:10→20:48)
[2018-07-16] MEDS: Albuterol/Ipratropium 3.0-0.5 MG/3 ML Neb Soln INH SCH ×2 (14:50→20:48)
[2018-07-16] MEDS ORDERED: Lactated Ringers 500 ML IV SCH ×2 (15:00→17:00)
[2018-07-16] MEDS: cefOXitin 2 GM in Sodium Chloride 0.9% 50 ML IV SCH ×2 (16:00→21:41)
[2018-07-16] MEDS ORDERED: Cyanocobalamin (Vitamin B12) 1,000 MCG/ML SDV IM ONE (16:00)
[2018-07-16] MEDS: Sodium Ferric Gluconate Cmplex 250 MG in Sodium Chloride 0.9% 100 ML IV SCH (17:45)
[2018-07-16] MEDS: MVI, Adult with Vitamin K 10 ML, Chromium/Copper/Mang/Selen/Zn 1 ML in Dextrose 5%-Lact... IV SCH ×3 (17:53)
[2018-07-16] MEDS: Pantoprazole 40 MG Vial IVPUSH SCH (17:53)
[2018-07-17] MEDS: cefOXitin 2 GM in Sodium Chloride 0.9% 50 ML IV SCH ×4 (03:33→22:50)
[2018-07-17] MEDS: Albuterol/Ipratropium 3.0-0.5 MG/3 ML Neb Soln INH SCH ×4 (07:18→20:38)
[2018-07-17] MEDS ORDERED: Dextrose 5%-Lactated Ringers 1,000 ML IV SCH (08:30)
[2018-07-17] MEDS: Dextrose 5%-Lactated Ringers 1,000 ML IV SCH (08:45)
[2018-07-17] MEDS: Docusate Sodium 100 MG Cap PO SCH ×2 (08:52→20:38)
[2018-07-17] MEDS: Gabapentin 300 MG Cap PO SCH ×3 (08:53→20:38)
[2018-07-17] MEDS: Magnesium Sulfate/Water 2 GM in Premix Bag 1 BAG IV SCH ×3 (09:33→22:49)
--- NOTE | 2018-07-17 13:15 | PN ---
DATE OF SERVICE: 07/17/2018 The patient had been afebrile with stable vital signs. Urine output was found to be a little bit on the low side and she received some extra bolus of albumin and transfusion of packed RBCs. Clinically, she is otherwise doing well. We will give her 1 more unit of packed RBCs for hemoglobin 9 and she will also be getting her second iron infusion today and begin a full liquid diet. Magnesium is low and that will be supplemented. The patient begin a full liquid diet. Errol Gonsalez MD /[id number]
[2018-07-17] MEDS: Pantoprazole 40 MG Vial IVPUSH SCH (16:29)
[2018-07-17] MEDS: MVI, Adult with Vitamin K 10 ML, Chromium/Copper/Mang/Selen/Zn 1 ML in Dextrose 5%-Lact... IV SCH ×3 (17:11)
[2018-07-17] MEDS: Sodium Ferric Gluconate Cmplex 250 MG in Sodium Chloride 0.9% 100 ML IV SCH (18:00)
[2018-07-18] MEDS: HYDROmorphone/Normal Saline 15 MG/30 ML PCA IV PRN (00:33)
[2018-07-18] MEDS: Magnesium Sulfate/Water 2 GM in Premix Bag 1 BAG IV SCH ×4 (03:31→21:49)
[2018-07-18] MEDS: hydrOXYzine HCl 100 MG/2 ML SDV IM PRN ×3 (07:01→19:17)
[2018-07-18] MEDS: Albuterol/Ipratropium 3.0-0.5 MG/3 ML Neb Soln INH SCH ×4 (07:15→20:41)
[2018-07-18] MEDS: Bisacodyl 5 MG Tab PO SCH ×2 (08:39→20:40)
[2018-07-18] MEDS: Gabapentin 300 MG Cap PO SCH ×3 (08:40→20:40)
[2018-07-18] MEDS: Docusate Sodium 100 MG Cap PO SCH ×2 (08:40→20:40)
--- NOTE | 2018-07-18 12:36 | OR ---
DATE OF PROCEDURE: 07/16/2018 PREOPERATIVE DIAGNOSIS: Severe menometrorrhagia resulting in marked anemia, secondary to fibroid uterus. POSTOPERATIVE DIAGNOSES: 1. Severe menometrorrhagia resulting in marked anemia, secondary to fibroid uterus. 2. Focal pelvic endometriosis. 3. Extensive abdominal and pelvic adhesions. PROCEDURE PERFORMED: Exploratory laparotomy with: 1. Total abdominal hysterectomy with bilateral salpingo-oophorectomy (95878). 2. Fulguration of pelvis endometriosis (25150). 3. Placement of Interceed mesh (31397). ANESTHESIA: General. 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 INDICATION FOR PROCEDURE: This is a 43-year-old with ongoing problems with vaginal bleeding and lower abdominal cramping, who presented to the clinic 2 days ago with hemoglobin of 7.0 and a markedly low ferritin level and has received 2 units of packed red blood cells along with an iron infusion. Hemoglobin this morning is 9.1, dropping somewhat from her followup hemoglobin yesterday in the mid 9's. Because of the ongoing bleeding, the patient wishes to proceed with a definitive hysterectomy. At 43, she wishes to have both tubes and ovaries removed. She is aware that this may require hormone replacement. Potential risks including bleeding, infection, injury to the surrounding area, possible ureteral or bladder injury, and possibility of cardiopulmonary, septic, or hemorrhagic complications leading to were discussed, and the patient wishes to proceed. DETAILS OF PROCEDURE: The patient was taken to the operating room and placed in a supine position. After general endotracheal anesthesia was induced, a Buchanan catheter was inserted, and the abdomen abdominal and vaginal prep performed. The patient's previous Pfannenstiel incision was then reused and carried down through the skin and subcutaneous tissue and anterior rectus sheath. Subrectus sheath flaps were then raised superiorly and inferiorly, and the midline peritoneum divided. General exploration revealed no significant problems in the upper abdomen. In the pelvis, there were some scattered areas of endometriosis with stool viewed around the sigmoid colon, and 2 additional areas were noted in the pelvic sidewall. These were fulgurated with electrocautery. The uterus itself was noted to have the palpable mass consistent with the known 5 fibroids seen on the ultrasound preoperatively. Otherwise, the patient is status post previous tubal ligation, and both tubes and ovaries all otherwise appeared to be normal. At this point, on each side, the infundibulopelvic ligament and broad and round ligaments were divided with SAVI tay loads. The peritoneal reflection of the bladder on the uterus was then divided and the bladder dissected downward onto the upper vagina. The cardinal ligaments were then divided with SAVI purple loads, and the uterosacral ligaments were then clamped bilaterally and divided and suture ligated with 4-0 Vicryl stitch. These were then held along sutures to close the vaginal cuff. The vagina was then divided circumferentially to expose the cervix and the specimen consisting of the uterus and both of ovaries was delivered from the field. The vaginal cuff closure was accomplished with continuation of the uterosacral ligament sutures and this appeared to be satisfactory. At this time, the pelvis was irrigated with cefoxitin-containing saline solution. The patient had quite a bit in the way of adhesions initially identified in the abdomen. These were taken down, and Interceed mesh was then placed across the vaginal cuff and up against pelvic sidewalls to limit recurrent adhesion formation. Following this, a single Nima-Avalos drain was placed through a stab wound in the right mid abdomen, taken down into the depths of the pelvis. The midline peritoneum and musculature were then approximated with a #2 Vicryl stitch as was the rectus sheath. The subcutaneous tissue was approximated with some 2-0 Vicryl stitch and the skin with 4-0 Vicryl subcuticular stitch. Dressing was applied. The patient was taken to the recovery room in satisfactory condition. There were no evident complications. Errol Gonsalez MD /[id number]
[2018-07-18] MEDS: Dextrose 5%-Lactated Ringers 1,000 ML IV SCH ×2 (14:13→22:44)
[2018-07-18] MEDS: MVI, Adult with Vitamin K 10 ML, Chromium/Copper/Mang/Selen/Zn 1 ML in Dextrose 5%-Lact... IV SCH ×3 (16:05)
[2018-07-18] MEDS: Pantoprazole 40 MG Tab.CR PO SCH (16:05)
[2018-07-18] MEDS ORDERED: Furosemide 20 MG/2 ML VIAL IVPUSH ONE ×2 (17:55→17:56)
--- NOTE | 2018-07-18 19:13 | PN ---
CORRECTED REPORT DATE OF SERVICE: 07/18/2018 HISTORY OF PRESENT ILLNESS: Ewelina is postop day #2. She just fell prior to report. She was walking to the bathroom with assistance, her knees buckled and she landed on her buttocks. She is having an increased amount of incisional pain that goes up into her rib area. She had one unit of packed red blood cells over the weekend and two iron infusions. Pain has been somewhat controlled with the PROPERTY VALUER. Vital signs have been stable. Hemoglobin this morning was 9.3. Oral intake full liquid diet was 7800. Urine output 5670. Buchanan catheter was removed. RUSS drain put out 560 of a pink serosanguineous drainage. Remainder of review of systems negative for any pertinent positives and negatives. OBJECTIVE: GENERAL: Cee Grove is a 43-year-old female. She is quite uncomfortable right now, recently fell, a shot of Toradol was ordered stat which was given, she was administered that. TPR is 98.5, 124, 20, blood pressure 125/70. HEENT: Negative. NECK: Supple. HEART: Regular rate and rhythm. LUNGS: Clear. ABDOMEN: Dressings dry and intact. RUSS drain intact. EXTREMITIES: SCDs are on, and there is no peripheral edema. ASSESSMENT: Exploratory laparotomy with total abdominal hysterectomy and bilateral salpingo- oophorectomy, fundoplication of the pelvis, endometriosis, and placement of Interceed mesh for severe menorrhagia resulting in marked anemia secondary to fibroid uterus, focal pelvic endometriosis, intraabdominal and pelvic adhesions. Date of surgery 07/16/2018. Surgeon, Errol Gonsalez MD. PLAN: 1. DC RUSS drain. 2. Dulcolax tabs 2 b.i.d. and stop when having bowel movements. 3. Continue Senokot-S. 4. Dressing off may shower. 5. Regular diet. 6. Good pulmonary toilet. 7. We will evaluate p.r.n. or in a.m. Kathryn Wright PA-C /[id number]
[2018-07-19] MEDS: Magnesium Sulfate/Water 2 GM in Premix Bag 1 BAG IV SCH (04:02)
[2018-07-19] MEDS: Albuterol/Ipratropium 3.0-0.5 MG/3 ML Neb Soln INH SCH ×4 (07:19→20:42)
[2018-07-19] MEDS ORDERED: Ondansetron 4 MG Tab.DIS PO PRN (07:43)
[2018-07-19] MEDS ORDERED: Furosemide 20 MG/2 ML VIAL IVPUSH ONE (08:00)
[2018-07-19] MEDS: Acetaminophen/oxyCODONE 325-5 MG Tab PO PRN ×4 (08:16→20:41)
[2018-07-19] MEDS ORDERED: Tamsulosin 0.4 MG Cap.ER PO ONE (09:00)
[2018-07-19] MEDS: Docusate Sodium 100 MG Cap PO SCH ×2 (09:01→20:42)
[2018-07-19] MEDS: Bisacodyl 5 MG Tab PO SCH ×2 (09:01→20:42)
[2018-07-19] MEDS: Gabapentin 300 MG Cap PO SCH ×3 (09:02→20:42)
[2018-07-19] MEDS: Bisacodyl 10 MG Supp RECTAL SCH ×2 (09:02→20:42)
[2018-07-19] MEDS ORDERED: Sodium Chloride 0.9% 10 ML Syringe IV PRN (09:07)
--- NOTE | 2018-07-19 10:41 | PN ---
DATE OF SERVICE: 07/19/2018 HISTORY OF PRESENT ILLNESS: Ewelina is postoperative day 3. She continues to report increasing amount of pain using her COMMUNITY SUPPORT ASSOCIATE as well as had 2 Vistaril IM injections. She declines to walk due to edema in her buttocks, upper thighs, and calves of her legs, has been having the SCDs on. She does report falling twice yesterday. The one time was charted, no details were on the second fall. Oral intake 1840. Buchanan catheter was removed. Urine output 810 and RUSS drain prior to removal was 560. REVIEW OF SYSTEMS: Remainder of review of systems negative for any pertinent positives and negatives. OBJECTIVE: GENERAL: Ewelina is a 43-year-old female, alert, orientated. VITAL SIGNS: TPR is 99.2, 118, 18. Blood pressure 138/74. HEENT: Negative. NECK: Supple. HEART: Regular rate and rhythm. LUNGS: Clear. ABDOMEN: Dressings dry and intact. Abdominal binder is on. EXTREMITIES: She does have marked peripheral edema in her thighs and mid calf area. ASSESSMENT: Exploratory laparotomy with total abdominal hysterectomy and bilateral salpingo- oophorectomy, fundoplication of the pelvis, endometriosis and placement of Interceed mesh for severe menorrhagia resulting in marked anemia secondary to fibroid uterus, focal pelvic endometriosis, intraabdominal and pelvic adhesions. Date of surgery, 07/16/2018. Surgeon, Errol Gonsalez MD. PLAN: 1. Flomax 0.4 mg oral now. 2. Flomax 0.4 mg at bedtime. 3. Discontinue COMMUNITY SUPPORT ASSOCIATE, continuous pulse oximetry. 4. Percocet 5/325 mg 1 to 2 every 4 hours p.r.n. pain. 5. Lasix 10 mg IV one time. 6. Discontinue Aquacel dressing, replace Steri-Strips as needed. 7. Physical Therapy for strengthening. 8. [place] hose, knee highs. Work on ambulation, ambulate at least 6 times daily. 9. No straws and drinking glasses. The patient is a Iman-en-Y. 10.Saline lock IV. 11.Good pulmonary toilet. 12.We will evaluate p.r.n. or in a.m. Kathryn Wright PA-C /[id number]
[2018-07-19] MEDS: Pantoprazole 40 MG Tab.CR PO SCH (16:13)
[2018-07-19] MEDS: Tamsulosin 0.4 MG Cap.ER PO SCH (20:43)
[2018-07-19] MEDS: hydrOXYzine HCl 100 MG/2 ML SDV IM PRN (21:46)
[2018-07-20] MEDS: Acetaminophen/oxyCODONE 325-5 MG Tab PO PRN ×4 (00:15→15:42)
[2018-07-20] MEDS ORDERED: Sodium Chloride 0.9% 1,000 ML IV SCH ×3 (05:15→22:30)
[2018-07-20] MEDS: Albuterol/Ipratropium 3.0-0.5 MG/3 ML Neb Soln INH SCH ×4 (07:11→21:42)
[2018-07-20] MEDS: Docusate Sodium 100 MG Cap PO SCH ×2 (08:48→21:08)
[2018-07-20] MEDS: Bisacodyl 5 MG Tab PO SCH ×2 (08:48→21:08)
[2018-07-20] MEDS: Gabapentin 300 MG Cap PO SCH ×3 (08:49→21:08)
[2018-07-20] MEDS: Bisacodyl 10 MG Supp RECTAL SCH ×2 (08:49→21:42)
[2018-07-20] MEDS ORDERED: Furosemide 40 MG/4 ML VIAL IVPUSH STA (08:54)
--- NOTE | 2018-07-20 13:58 | PCM.CONS ---
H&P History of Present Illness - General Date of Service: 07/20/18 Admit Problem/Dx: Admission Diagnosis/Problem Admission Diagnosis/Problem Total abdominal hysterectomy with bilateral salpingo-oophorectomy Source of Information: Patient, Provider, RN Notes Reviewed History Limitations: Reports: No Limitations - History of Present Illness Initial Comments - Free Text/Narative: Ms. Grove is a 43-year-old woman who I been asked to see by Dr. Gonsalez for further suggestions concerning evaluation and management of marked fluid overload as well as hyponatremia and acute kidney injury. She was admitted to this facility on the 16 of July with a history of persistent vaginal bleeding. On evaluation she been found to have significant fibroids and on the undergo total abdominal hysterectomy and BSO. Postoperative course has been complicated by hypotension requiring recurrent fluid boluses as well as very high intake of water by the patient. Labs were obtained this morning and showed a creatinine of 1.8 with a GFR close to 30. In addition she was found to have severe hyponatremia with a sodium level of 117, sodium level on admission was 138. Urine sodium was obtained and was found to be 53. Serum osmolality has been drawn but will not be available for several days as it will be sent to a reference lab. On review of intake and output over the past few days her intake has exceeded output by almost 20 L. She denies any previous history of significant renal insufficiency. Through the day we have tried to precipitate diuresis with use of aggressive IV diuretic therapy, urine output has been negligible. She is developed increased abdominal pain with nausea and vomiting this evening. CT scan of the abdomen and pelvis shows evidence of dilated small bowel loops consistent with ileus versus small bowel obstruction. There was no evidence of abscess or significant free air within the abdomen. Through the day her sodium is dropped slightly to 116 and her creatinine slightly increased to 1.9. Abdominal Pain Score (Numeric/FACES): 9 Bilateral Leg Pain Score (Numeric/FACES): 6 Right Wrist Pain Score (Numeric/FACES): 5 - Related Data Allergies/Adverse Reactions: Allergies Allergy/AdvReac Type Severity Reaction Status Date / Time doxycycline Allergy Rash Verified 07/13/18 12:20 erythromycin base Allergy Rash Verified 07/13/18 12:20 procaine [From Novocain] Allergy Rash Verified 07/13/18 12:20 Home Medications: Home Meds Cyanocobalamin (Vitamin B-12) [Vitamin B12] 5,000 mcg PO DAILY 12/02/15 [History ] Multivitamin [Multi-Vitamin Daily] 1 tab PO DAILY 12/02/15 [History] Iron,Carbonyl/Ascorbic Acid [Vitron-C Tablet] 1 each PO DAILY 08/04/16 [History] Gabapentin [Neurontin] 300 mg PO TID 07/13/18 [History] Past Medical History Gastrointestinal History: Reports: Other (See Below) Other Gastrointestinal History: RNY 2002 Genitourinary History: Reports: None 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: Reports: Musculoskeletal History: Reports: Fracture Endocrine/Metabolic History: Reports: Vitamin D Deficiency Hematologic History: Reports: Anemia, B12 Deficiency - Infectious Disease History Infectious Disease History: Reports: Chicken Pox - Past Surgical History HEENT Surgical History: Reports: Oral Surgery GI Surgical History: Reports: Bariatric Procedure, Cholecystectomy, Colonoscopy , EGD Female Surgical History: Reports: Section, Tubal Ligation Social & Family History - Family History Cardiac: Reports: [place] - Tobacco Use Smoking Status *Q: Light Tobacco Smoker Years of Tobacco use: 5 Packs/Tins Daily: 0.5 Used Tobacco, but Quit: No Second Hand Smoke Exposure: No - Caffeine Use Caffeine Use: Reports: Soda - Alcohol Use Date of Last Drink: 07/15/18 - Recreational Drug Use Recreational Drug Use: No H&P Review of Systems - Review of Systems: Review Of Systems: See Below General: Reports: Weakness. Denies: Fever, Chills Pulmonary: Reports: No Symptoms Cardiovascular: Reports: No Symptoms Gastrointestinal: Reports: Abdominal Pain, Decreased Appetite, Distension, Nausea, Vomiting. Denies: Constipation, Diarrhea, Difficulty Swallowing Genitourinary: Reports: No Symptoms Musculoskeletal: Reports: No Symptoms Skin: Reports: No Symptoms Neurological: Reports: No Symptoms Exam - Exam Exam: See Below - Vital Signs Vital Signs: Last Vital Signs Temp 96.2 F 07/20/18 11:00 Pulse 91 07/20/18 11:11 Resp 18 07/20/18 11:00 BP 121/67 07/20/18 11:00 Pulse Ox 97 07/20/18 11:11 Orthostatic Blood Pressure [ 118/69 Supine] Orthostatic Blood Pressure [ 102/89 Standing] Orthostatic Blood Pressure [ 108/63 Sitting] Weight: 200 lb 15.997 oz - Exam General: Alert, Oriented, Cooperative, Moderate Distress Neck: Supple, Trachea Midline, +2 Carotid Pulse wo Bruit Lungs: Normal Respiratory Effort, Rales Cardiovascular: Regular Rate, Regular Rhythm, Normal S1, Normal S2. No: Systolic Murmur, Diastolic Murmur GI/Abdominal Exam: Soft, No Organomegaly, Distended, Tender. No: Guarding, Rigid, Rebound Extremities: Non-Tender, Pedal Edema Skin: Warm, Dry - Patient Data Lab Results Last 24 hrs: Laboratory Results - last 24 hr 07/20/18 07/20/18 07/20/18 Range/Units 03:45 03:45 07:59 WBC 6.3 (4.5-11.0) K/uL RBC 2.93 L (3.30-5.50) M/uL Hgb 8.7 L (12.0-15.0) g/dL Hct 26.9 L (36.0-48.0) % MCV 92 (80-98) fL MCH 30 (27-31) pg MCHC 32 (32-36) % Plt Count 144 L (150-400) K/uL Neut % (Auto) 75 H (36-66) % Lymph % (Auto) 11 L (24-44) % Sutton % (Auto) 13 H (2-6) % Eos % (Auto) 1 L (2-4) % Baso % (Auto) 0 (0-1) % Sodium 117 L* (140-148) mmol/L Potassium 4.2 (3.6-5.2) mmol/L Chloride 87 L (100-108) mmol/L Carbon Dioxide 24 (21-32) mmol/L Anion Gap 10.2 (5.0-14.0) mmol/L BUN 6 L D (7-18) mg/dL Creatinine 1.8 H D (0.6-1.0) mg/dL Est Cr Clr Drug Dosing 35.46 mL/min Estimated GFR (MDRD) 30 L (>60) Glucose 94 (74-106) mg/dL Calcium 8.3 L (8.5-10.1) mg/dL Phosphorus 2.3 L (2.5-4.9) mg/dL Magnesium 3.1 H D (1.8-2.4) mg/dL Total Bilirubin 2.9 H D (0.2-1.0) mg/dL AST 43 H (15-37) U/L ALT 32 (12-78) U/L Alkaline Phosphatase 220 H (46-116) U/L NT-Pro-B Natriuret Pep 68 (5-125) pg/mL Total Protein 5.3 L (6.4-8.2) g/dL Albumin 2.0 L (3.4-5.0) g/dL Globulin 3.3 (2.3-3.5) g/dL Albumin/Globulin Ratio 0.6 L (1.2-2.2) Ur Random Sodium (20-110) mmol/L 07/20/18 07/20/18 Range/Units 08:11 08:57 WBC (4.5-11.0) K/uL RBC (3.30-5.50) M/uL Hgb (12.0-15.0) g/dL Hct (36.0-48.0) % MCV (80-98) fL MCH (27-31) pg MCHC (32-36) % Plt Count (150-400) K/uL Neut % (Auto) (36-66) % Lymph % (Auto) (24-44) % Sutton % (Auto) (2-6) % Eos % (Auto) (2-4) % Baso % (Auto) (0-1) % Sodium 117 L* (140-148) mmol/L Potassium 4.1 (3.6-5.2) mmol/L Chloride 86 L (100-108) mmol/L Carbon Dioxide 25 (21-32) mmol/L Anion Gap 10.1 (5.0-14.0) mmol/L BUN 7 (7-18) mg/dL Creatinine 1.8 H (0.6-1.0) mg/dL Est Cr Clr Drug Dosing 35.46 mL/min Estimated GFR (MDRD) 30 L (>60) Glucose 87 (74-106) mg/dL Calcium 8.5 (8.5-10.1) mg/dL Phosphorus (2.5-4.9) mg/dL Magnesium (1.8-2.4) mg/dL Total Bilirubin (0.2-1.0) mg/dL AST (15-37) U/L ALT (12-78) U/L Alkaline Phosphatase (46-116) U/L NT-Pro-B Natriuret Pep (5-125) pg/mL Total Protein (6.4-8.2) g/dL Albumin (3.4-5.0) g/dL Globulin (2.3-3.5) g/dL Albumin/Globulin Ratio (1.2-2.2) Ur Random Sodium 53 (20-110) mmol/L Result Diagrams: 07/20/18 03:45 07/20/18 14:44 Consult PN Assessment/Plan Procedures: Procedures APPLY FOREARM SPLINT (11/20/17) ASSAY OF COPPER (07/13/18) ASSAY OF FERRITIN (07/13/18) ASSAY OF FOLIC ACID SERUM (07/13/18) ASSAY OF NATRIURETIC PEPTIDE (07/13/18) ASSAY OF TROPONIN QUANT (07/13/18) ASSAY OF VITAMIN A (07/13/18) ASSAY OF ZINC (07/13/18) BLOOD TRANSFUSION SERVICE (07/13/18) BLOOD TYPING SEROLOGIC ABO (07/13/18) BLOOD TYPING SEROLOGIC RH(D) (07/13/18) CHORIONIC GONADOTROPIN TEST (07/14/18) COMPATIBILITY TEST ANTIGLOB (07/13/18) COMPATIBILITY TEST SPIN (07/13/18) COMPLETE CBC W/AUTO DIFF WBC (07/13/18) COMPREHEN METABOLIC PANEL (07/13/18) CT ABD & PELV W/CONTRAST (08/08/16) CULTURE SCREEN ONLY (07/28/16) DRAINAGE OF GUM LESION (05/23/16) EGD BIOPSY SINGLE/MULTIPLE (07/28/16) ELECTROCARDIOGRAM TRACING (07/13/18) EMERGENCY DEPT VISIT (07/13/18) EMERGENCY DEPT VISIT (05/23/16) EMERGENCY DEPT VISIT (12/02/15) HEMOGLOBIN (07/15/18) HOT OR COLD PACKS THERAPY (06/30/18) HYDRATE IV INFUSION ADD-ON (08/08/16) MANUAL THERAPY 1/> REGIONS (06/30/18) MRI JNT OF LWR EXTRE W/O DYE (03/15/18) MRI JOINT UPR EXTREM W/O DYE (04/21/18) MRI UPPER EXTREMITY W/O DYE (04/14/18) ORTHOTIC MGMT&TRAINJ 1ST ENC (05/30/18) OT EVAL MOD COMPLEX 45 MIN (05/30/18) PARAFFIN BATH THERAPY (06/30/18) RBC ANTIBODY SCREEN (07/13/18) ROUTINE VENIPUNCTURE (07/15/18) THER/PROPH/DIAG INJ IV PUSH (07/13/18) THERAPEUTIC EXERCISES (06/30/18) TRANSVAGINAL US NON-OB (07/14/18) TX/PRO/DX INJ NEW DRUG ADDON (08/08/16) ULTRASOUND THERAPY (06/30/18) URINALYSIS AUTO W/SCOPE (08/08/16) US EXAM PELVIC COMPLETE (07/14/18) VITAMIN B-12 (07/13/18) VITAMIN D 25 HYDROXY (07/13/18) X-RAY EXAM CHEST 1 VIEW (07/13/18) X-RAY EXAM OF HAND (11/20/17) X-RAY EXAM OF SHOULDER (10/16/15) Problem List Initiated/Reviewed/Updated: Yes My Orders Last 24 Hours: My Active Orders 07/20/18 13:00 Albumin Human [Albumin 25%] 25 gm in 100 ml IV Q24H 07/20/18 13:55 Convert IV to Saline Lock [OM.PC] Routine Plan: ASSESSMENT AND RECOMMENDATIONS HYPONATREMIA-likely dilutional, marked fluid overload, up over 20 L since surgery. Some of the fluid has been intravenous given for hypotension and first few days after surgery. It appears that she's had significant free water intake over the last few days. Management complicated by acute kidney injury, she has had minimal urine output despite aggressive diuretic therapy during the day. -Hold on further diuretic therapy -IV normal saline -Monitor sodium levels every 2 hours through the night ACUTE KIDNEY INJURY-likely secondary to intravascular volume depletion and low albumin level. She has received IV albumin last night and again through the day today, no improvement in urine output or renal function. -IV normal saline as above -Buchanan catheter to closely monitor urine output -If no urine output during the night may need to consider transfer to tertiary care center for nephrology assessment and possible dialysis POSTOPERATIVE ILEUS -NG tube to low intermittent suction -Abdominal flat plate and upright x-ray in a.m. STATUS POST TOTAL ABDOMINAL HYSTERECTOMY AND BSO -Postoperative care per Dr. Gonsalez Requesting Provider: ROSENBAUM Date Consult Requested: 07/20/18 Reason for Consult: Hyponatremia, acute kidney injury Patient History Reviewed: Yes Notified Requestor: Yes
[2018-07-20] MEDS: Pantoprazole 40 MG Tab.CR PO SCH (15:32)
[2018-07-20] MEDS ORDERED: Bumetanide 1 MG/4 ML MDV IVPUSH ONE (15:35)
[2018-07-20] MEDS ORDERED: Bumetanide 2.5 MG/10 ML MDV IVPUSH ONE (15:45)
[2018-07-20] MEDS: hydrOXYzine HCl 100 MG/2 ML SDV IM PRN (16:29)
--- NOTE | 2018-07-20 17:20 | PN ---
DATE OF SERVICE: 07/20/2018 SUBJECTIVE: Ewelina has had an increased amount of edema. She is having clear fluid leaking from her incision as well as her RUSS drain site. Has been afebrile. Labs this morning, sodium was 117, hemoglobin 8.7, creatinine is 1.8, albumin 2. She did get albumin IV 50 g as well as IV was changed to normal saline. Physical therapy did see her for her legs buckling. Thought it was due to an increased amount of peripheral edema that was putting pressure on her knees. The pain has been controlled. Remainder of review of systems negative for any pertinent positives or negatives. Oral intake 3720, urine output is 975. OBJECTIVE: GENERAL: Ewelina Grove is a 43-year-old female. VITAL SIGNS: TPR is 96.2, 92, 18, and blood pressure 119/66. HEENT: Negative. NECK: Supple. HEART: Regular rate and rhythm. LUNGS: Revealed decreased breath sounds bilaterally. Shortness of breath noted. ABDOMEN: Incision looks good. There is no redness. Amanda intact. She does have clear drainage from her RUSS drain site. Abdominal binder has been on. EXTREMITIES: Marked upper and lower leg edema. ASSESSMENT: Hyponatremia, marked peripheral edema, exploratory laparotomy, total abdominal hysterectomy, bilateral salpingo-oophorectomy, fundoplication of the pelvis, endometriosis and placement of Interceed mesh for severe menorrhagia resulting in marked anemia secondary to fibroid uterus, focal pelvic endometriosis, intraabdominal and pelvic adhesions. Date of surgery 07/16/2018. Surgeon, Errol Gonsalez MD. PLAN: 1. Albumin 50 g IV for [address] Parham regarding hyponatremia. 3. Check CBC, CMP, and phosphorus in a.m. 4. Wrap each leg from toe to thigh with Kerlix and Corey wrap. Use 4 inch Corey wrap on the lower leg and 6 inch in the upper leg. 5. Good pulmonary toilet. 6. We will evaluate p.r.n. or in a.m. Kathryn Wright PA-C /[id number]
[2018-07-20] MEDS: Ondansetron 4 MG/2 ML SDV IVPUSH PRN (18:19)
--- NOTE | 2018-07-20 19:19 | CRLCT ---
Indication: increased abdominal pain, n/v, s/p hysterectomy 07-16-18 Technique: Routine noncontrast CT abdomen and pelvis performed Please note that all CT scans at this facility use dose modulation, iterative reconstruction, and/or weight-based dosing when appropriate to reduce radiation dose to as low as reasonably achievable. Comparison: 08.08.16 Findings: Atelectasis is present within both lower lobes. Small left pleural effusion. No pneumothorax. Diffuse low attenuation of the hepatic parenchyma consistent with steatosis. Status post cholecystectomy. No biliary obstruction. Normal adrenal glands and kidneys. No renal or ureteral stone. No hydronephrosis. Normal spleen with incidental splenule. Normal pancreas. Postoperative changes of Iman-en-Y gastric bypass surgery. Distention of small-bowel loops containing primarily fluid within the lower mid abdomen along with a few bubbles of nondependent air. No definitive pneumatosis. Colonic stool with relative decompression of the left colon and sigmoid colon. No free intraperitoneal air. There is moderate pelvic free fluid. Status post hysterectomy. No abscess. Sigmoid diverticulosis. No evidence of diverticulitis. Diffuse edema within the subcutaneous fat. No fracture. Impression: Postoperative changes of hysterectomy. Moderate pelvic free fluid. No abscess or free air. Dilated small bowel loops in the midline of the lower abdomen measuring up to 3.7 centimeters concerning for small-bowel obstruction although ileus could cause this appearance. Diffuse edema in the subcutaneous fat consistent with 3rd spacing. Status post cholecystectomy without biliary obstruction. Status post gastric bypass surgery without inflammatory changes. Diffuse hepatic steatosis. Bilateral atelectasis. Please note that all CT scans at this facility use dose modulation, iterative reconstruction, and/or weight-based dosing when appropriate to reduce radiation dose to as low as reasonably achievable. Dictated by Rick Garcia MD @ Jul 20 2018 6:59PM Signed by Dr. Rick Garcia @ Jul 20 2018 7:17PM
[2018-07-20] MEDS: Tamsulosin 0.4 MG Cap.ER PO SCH (21:08)
[2018-07-20] MEDS: HYDROmorphone 0.5 MG/0.5 ML Syringe IVPUSH PRN (22:28)
[2018-07-21] MEDS: HYDROmorphone 0.5 MG/0.5 ML Syringe IVPUSH PRN ×2 (00:30→02:59)
--- NOTE | 2018-07-21 04:59 | CRLCR ---
INDICATION: Abdominal pain, nausea, vomiting TECHNIQUE: Abdominal radiograph 6 views COMPARISON: None FINDINGS: Moderate degradation of image quality noted due to body habitus. Bowel: Moderate to severe gaseous distention of small bowel loops and mild gas distention of colonic loops are noted without interval change. NG tube present with the tip near the GE junction. Soft tissue: No evidence of pneumoperitoneum present. No suspicious calcifications noted. The patient is status post cholecystectomy. Bone: Unremarkable for age. IMPRESSIONS: 1. Moderate to severe gaseous distention of small bowel loops and mild gas distention of colonic loops are noted without interval change. 2. NG tube present with the tip near the GE junction. Dictated by Miguel Clement MD @ 07/21/2018 4:57:57 AM Dictated by: Miguel Clement MD @ 07/21/2018 04:58:01 (Electronically Signed)
[2018-07-21] MEDS: Ondansetron 4 MG/2 ML SDV IVPUSH PRN (06:46)
[2018-07-21] MEDS: Albuterol/Ipratropium 3.0-0.5 MG/3 ML Neb Soln INH SCH ×4 (07:44→21:35)
[2018-07-21] MEDS ORDERED: Bumetanide 1 MG/4 ML MDV IVPUSH ONE (08:00)
[2018-07-21] MEDS ORDERED: Acetaminophen 1,000 MG in Premix Bag 1 BAG IV ONE (09:00)
[2018-07-21] MEDS ORDERED: Bisacodyl 10 MG Supp RECTAL ONE (09:00)
[2018-07-21] MEDS ORDERED: Metoclopramide 10 MG Tab PO SCH (10:00)
--- NOTE | 2018-07-21 10:13 | PCM.PN ---
- General Info Date of Service: 07/21/18 Subjective Update: Ms. Grove is improved significantly since last night, she received IV fluids and then started a spontaneous diuresis. Sodium level has slowly increased but had reached the limit of safe increase by this morning. We'll plan to hold on further aggressive interventions with sodium at this time. She does continue to spontaneous diurese and also received a dose of Bumex this morning. As the days progressed sodium level has remained relatively stable. She continues to experience some agitation and impulsive behavior. She has broken her NG tube and tried to remove IV. Functional Status: Reports: Tolerating Diet - Review of Systems General: Denies: Fever, Weakness, Chills Pulmonary: Reports: No Symptoms Cardiovascular: Reports: No Symptoms Gastrointestinal: Reports: Abdominal Pain. Denies: Difficulty Swallowing, Nausea, Vomiting Psychiatric: Reports: Agitation - Patient Data Vitals - Most Recent: Last Vital Signs Temp 99.2 F 07/21/18 06:00 Pulse 110 H 07/21/18 07:44 Resp 14 07/21/18 06:00 BP 127/84 07/21/18 06:00 Pulse Ox 98 07/21/18 06:00 Orthostatic Blood Pressure [ 130/74 Supine] Orthostatic Blood Pressure [ 125/83 Standing] Orthostatic Blood Pressure [ 136/87 Sitting] Weight - Most Recent: 200 lb 15.997 oz I&O - Last 24 Hours: Intake & Output 07/20/18 07/21/18 07/21/18 22:59 06:59 14:59 Intake Total 425 100 Output Total 4710 3475 1250 Balance -4280 -1542 -1630 Lab Results Last 24 Hours: Laboratory Results - last 24 hr 07/20/18 07/20/18 07/20/18 Range/Units 00:01 14:44 21:50 WBC (4.5-11.0) K/uL RBC (3.30-5.50) M/uL Hgb (12.0-15.0) g/dL Hct (36.0-48.0) % MCV (80-98) fL MCH (27-31) pg MCHC (32-36) % Plt Count (150-400) K/uL Sodium 122 L 116 L* 119 L* (140-148) mmol/L Potassium 4.5 (3.6-5.2) mmol/L Chloride 84 L (100-108) mmol/L Carbon Dioxide 24 (21-32) mmol/L Anion Gap 12.5 (5.0-14.0) mmol/L BUN 6 L (7-18) mg/dL Creatinine 1.9 H (0.6-1.0) mg/dL Est Cr Clr Drug Dosing 33.59 mL/min Estimated GFR (MDRD) 29 L (>60) Glucose 84 (74-106) mg/dL Calcium 8.7 (8.5-10.1) mg/dL Phosphorus (2.5-4.9) mg/dL Total Bilirubin (0.2-1.0) mg/dL AST (15-37) U/L ALT (12-78) U/L Alkaline Phosphatase (46-116) U/L NT-Pro-B Natriuret Pep (5-125) pg/mL Total Protein (6.4-8.2) g/dL Albumin (3.4-5.0) g/dL Globulin (2.3-3.5) g/dL Albumin/Globulin Ratio (1.2-2.2) 07/21/18 07/21/18 07/21/18 Range/Units 02:10 04:30 04:30 WBC 7.2 (4.5-11.0) K/uL RBC 3.26 L (3.30-5.50) M/uL Hgb 9.9 L (12.0-15.0) g/dL Hct 29.5 L (36.0-48.0) % MCV 91 (80-98) fL MCH 30 (27-31) pg MCHC 34 (32-36) % Plt Count 201 (150-400) K/uL Sodium 123 L 124 L (140-148) mmol/L Potassium 3.5 L (3.6-5.2) mmol/L Chloride 90 L (100-108) mmol/L Carbon Dioxide 24 (21-32) mmol/L Anion Gap 13.5 (5.0-14.0) mmol/L BUN 7 (7-18) mg/dL Creatinine 1.4 H (0.6-1.0) mg/dL Est Cr Clr Drug Dosing 45.59 mL/min Estimated GFR (MDRD) 41 L (>60) Glucose 66 L (74-106) mg/dL Calcium 8.7 (8.5-10.1) mg/dL Phosphorus 2.9 (2.5-4.9) mg/dL Total Bilirubin 3.1 H (0.2-1.0) mg/dL AST 30 (15-37) U/L ALT 25 (12-78) U/L Alkaline Phosphatase 211 H (46-116) U/L NT-Pro-B Natriuret Pep 198 H (5-125) pg/mL Total Protein 5.4 L (6.4-8.2) g/dL Albumin 2.4 L (3.4-5.0) g/dL Globulin 3.0 (2.3-3.5) g/dL Albumin/Globulin Ratio 0.8 L (1.2-2.2) Med Orders - Current: Current Medications Albuterol/Ipratropium (Duoneb 3.0-0.5 Mg/3 Ml) 3 ml INH QIDRT [facility] Last Admin: 07/21/18 07:44 Dose: 3 ml Albuterol/Ipratropium (Duoneb 3.0-0.5 Mg/3 Ml) 3 ml INH ASDIRECTED PRN PRN Reason: BREATHING Bisacodyl (Dulcolax) 10 mg PO BID [facility] Last Admin: 07/20/18 21:08 Dose: Not Given Bisacodyl (Dulcolax) 10 mg RECTAL BID [facility] Last Admin: 07/20/18 21:42 Dose: 10 mg Bisacodyl (Dulcolax) 10 mg RECTAL ONETIME PRN PRN Reason: IF NO RESULT FROM AM DOSE Stop: 07/21/18 19:00 Docusate Sodium (Colace) 100 mg PO BID [facility] Last Admin: 07/20/18 21:08 Dose: Not Given Gabapentin (Neurontin) 300 mg PO TID [facility] Last Admin: 07/20/18 21:08 Dose: Not Given Hydromorphone HCl (Dilaudid) 0.5 mg IVPUSH Q2H PRN PRN Reason: pain Last Admin: 07/21/18 02:59 Dose: 0.5 mg Albumin Human (Albumin 25%) 25 gm in 100 mls @ 25 mls/hr IV DAILY [facility] Stop: 07/22/18 12:59 Last Admin: 07/20/18 08:44 Dose: 25 mls/hr Albumin Human (Albumin 25%) 25 gm in 100 mls @ 25 mls/hr IV Q24H [facility] Stop: 07/22/18 16:59 Last Admin: 07/20/18 13:07 Dose: 25 mls/hr Potassium Chloride 20 meq/Lidocaine HCl 2 ml/ Sodium Chloride 112 mls @ 56 mls/ hr IV Q2H [facility] Stop: 07/21/18 14:59 Lorazepam (Ativan) 0.5 mg IVPUSH Q4H PRN PRN Reason: Anxiety Metoclopramide HCl (Reglan) 10 mg IVPUSH Q6H [facility] Ondansetron HCl (Zofran) 4 mg IVPUSH Q4H PRN PRN Reason: Nausea/Vomiting Last Admin: 07/21/18 06:46 Dose: 4 mg Ondansetron HCl (Zofran Odt) 4 mg PO Q4H PRN PRN Reason: Nausea/Vomiting Last Admin: 07/20/18 04:05 Dose: 4 mg Oxycodone/Acetaminophen (Percocet 325-5 Mg) 1 - 2 tab PO Q4H PRN PRN Reason: paiin Last Admin: 07/20/18 15:42 Dose: 2 tab Pantoprazole Sodium (Protonix) 40 mg PO Q24H [facility] Last Admin: 07/20/18 15:32 Dose: 40 mg Senna/Docusate Sodium (Senna Plus) 2 tab PO DAILY [facility] Last Admin: 07/20/18 08:49 Dose: 2 tab Sodium Chloride (Saline Flush) 10 ml IV ASDIRECTED PRN PRN Reason: [employer] Tamsulosin HCl (Flomax) 0.4 mg PO BEDTIME [facility] Last Admin: 07/20/18 21:08 Dose: Not Given Discontinued Medications Acetaminophen (Tylenol Extra Strength) 1,000 mg PO ONETIME ONE Stop: 07/16/18 06:16 Last Admin: 07/16/18 06:28 Dose: 1,000 mg Albuterol/Ipratropium (Duoneb 3.0-0.5 Mg/3 Ml) 3 ml NEB ONETIME ONE Stop: 07/16/18 07:01 Last Admin: 07/16/18 06:28 Dose: 3 ml Bumetanide (Bumex) 4 mg IVPUSH ONETIME ONE Stop: 07/20/18 15:46 Last Admin: 07/20/18 15:52 Dose: 4 mg Bumetanide (Bumex) 2 mg IVPUSH NOW ONE Stop: 07/21/18 08:01 Last Admin: 07/21/18 08:20 Dose: 2 mg Cefoxitin Sodium (Mefoxin) Confirm Administered Dose 2 gm .ROUTE .STK-MED ONE Stop: 07/16/18 07:02 Last Admin: 07/16/18 08:41 Dose: 2 gm Ropivacaine 45 ml/Dexamethasone 8 mg/Epinephrine HCl 0.4 mg/ Sodium Chloride 32.6 ml 0 ml NERVRT ASDIRECTED [facility] Last Admin: 07/16/18 08:58 Dose: 80 syringe Cyanocobalamin (Vitamin B12) 1,000 mcg IM ONETIME ONE Stop: 07/16/18 16:01 Last Admin: 07/16/18 17:53 Dose: 1,000 mcg Dexamethasone (Dexamethasone) Confirm Administered Dose 4 mg .ROUTE .STK-MED ONE Stop: 07/16/18 07:50 Fentanyl (Sublimaze) Confirm Administered Dose 100 mcg .ROUTE .STK-MED ONE Stop: 07/16/18 10:18 Fentanyl (Sublimaze) 100 mcg IVPUSH ONETIME ONE Stop: 07/16/18 11:20 Last Admin: 07/16/18 11:25 Dose: 100 mcg Fentanyl Citrate (Fentanyl) Confirm Administered Dose 500 mcg .ROUTE .STK-MED ONE Stop: 07/16/18 07:51 Furosemide (Lasix) 20 mg IVPUSH ONETIME ONE Stop: 07/18/18 17:56 Last Admin: 07/18/18 18:28 Dose: Not Given Furosemide (Lasix) 10 mg IVPUSH ONETIME ONE Stop: 07/18/18 17:57 Last Admin: 07/18/18 18:28 Dose: 10 mg Furosemide (Lasix) 10 mg IVPUSH ONETIME ONE Stop: 07/19/18 08:01 Last Admin: 07/19/18 08:17 Dose: 10 mg Furosemide (Lasix) 40 mg IVPUSH ONETIME STA Stop: 07/20/18 08:55 Last Admin: 07/20/18 08:59 Dose: 40 mg Gabapentin (Neurontin) 300 mg PO ONETIME ONE Stop: 07/16/18 06:16 Last Admin: 07/16/18 06:28 Dose: 300 mg Glycopyrrolate (Robinul) Confirm Administered Dose 1 mg .ROUTE .[facility] ONE Stop: 07/16/18 07:50 Hydromorphone HCl (Dilaudid Concierge 15 Mg In Ns 30 Ml) 0 mg IV ASDIRECTED PRN; Protocol PRN Reason: [employer] Last Admin: 07/18/18 00:33 Dose: 15 mg Hydroxyzine HCl (Vistaril) 100 mg IM ONETIME ONE Stop: 07/16/18 11:14 Last Admin: 07/16/18 11:18 Dose: 100 mg Hydroxyzine HCl (Vistaril) 100 mg IM Q4H PRN PRN Reason: pain Last Admin: 07/20/18 16:29 Dose: 100 mg Cefoxitin Sodium 2 gm/ Sodium (Chloride) 50 mls @ 100 mls/hr IV ONETIME ONE Stop: 07/16/18 08:29 Last Admin: 07/16/18 07:57 Dose: 100 mls/hr Dextrose/Lactated Ringer's (Dextrose 5%-Lactated Ringers) 1,000 mls @ 100 mls/ hr IV ASDIRECTED [facility] Last Admin: 07/16/18 06:29 Dose: 100 mls/hr Ketamine HCl 50 mg/ Sodium (Chloride) 50 mls @ 17 mls/hr IV ASDIRECTED [facility] Lactated Ringer's (Ringers, Lactated) Confirm Administered Dose 1,000 mls @ as directed .ROUTE .[facility] ONE Stop: 07/16/18 10:32 Dextrose/Lactated Ringer's (Dextrose 5%-Lactated Ringers) 1,000 mls @ 150 mls/ hr IV ASDIRECTED [facility] Last Admin: 07/17/18 01:03 Dose: 150 mls/hr Multivitamins/Minerals 10 ml/Chromium/Copper/Manganese/Seleni/Zn 1 ml/ Dextrose/ Lactated Ringer's 1,011 mls @ 150 mls/hr IV DAILY@1600 [facility] Last Admin: 07/18/18 16:05 Dose: 150 mls/hr Cefoxitin Sodium 2 gm/ Sodium (Chloride) 50 mls @ 100 mls/hr IV Q6H [facility] Stop: 07/17/18 22:29 Last Admin: 07/17/18 22:50 Dose: 100 mls/hr Ferric Sodium Gluconate Complex 250 mg/ Sodium Chloride 120 mls @ 60 mls/hr IV Q24H [facility] Stop: 07/17/18 19:59 Last Admin: 07/17/18 18:00 Dose: 60 mls/hr Lactated Ringer's (Ringers, Lactated) 500 mls @ 999 mls/hr IV ASDIRECTED [facility] Stop: 07/16/18 15:31 Last Admin: 07/16/18 15:15 Dose: 999 mls/hr Lactated Ringer's (Ringers, Lactated) 500 mls @ 999 mls/hr IV ASDIRECTED [facility] Stop: 07/16/18 17:31 Last Admin: 07/16/18 17:00 Dose: 999 mls/hr Magnesium Sulfate 2 gm/ Premix 50 mls @ 25 mls/hr IV Q6H [facility] Stop: 07/19/18 05:59 Last Admin: 07/19/18 04:02 Dose: 25 mls/hr Dextrose/Lactated Ringer's (Dextrose 5%-Lactated Ringers) 1,000 mls @ 100 mls/ hr IV ASDIRECTED [facility] Last Admin: 07/18/18 22:44 Dose: 100 mls/hr Albumin Human (Albumin 25%) 25 gm in 100 mls @ 25 mls/hr IV ONETIME ONE Stop: 07/19/18 23:59 Last Admin: 07/19/18 20:42 Dose: 25 mls/hr Albumin Human (Albumin 25%) 25 gm in 100 mls @ 25 mls/hr IV ONETIME ONE Stop: 07/20/18 04:00 Last Admin: 07/20/18 01:21 Dose: 25 mls/hr Sodium Chloride (Normal Saline) 1,000 mls @ 80 mls/hr IV ASDIRECTED [facility] Last Admin: 07/20/18 05:42 Dose: 80 mls/hr Albumin Human (Albumin 25%) 25 gm in 100 mls @ 25 mls/hr IV Q24H [facility] Stop: 07/22/18 16:59 Sodium Chloride (Normal Saline) 1,000 mls @ 500 mls/hr IV ASDIRECTED [facility] Stop: 07/20/18 21:46 Last Admin: 07/20/18 19:47 Dose: 500 mls/hr Sodium Chloride (Normal Saline) 1,000 mls @ 250 mls/hr IV ASDIRECTED [facility] Stop: 07/21/18 02:31 Last Admin: 07/20/18 22:49 Dose: 250 mls/hr Potassium Chloride 20 meq/ (Sodium Chloride) 110 mls @ 55 mls/hr IV Q2H [facility] Stop: 07/21/18 14:59 Acetaminophen 1,000 mg/ Premix 100 mls @ 400 mls/hr IV NOW ONE Stop: 07/21/18 09:14 Last Admin: 07/21/18 09:43 Dose: 400 mls/hr Ketamine HCl (Ketalar) 28 mg IV ASDIRECTED [facility] Naloxone HCl (Narcan) 0.1 mg IV ASDIRECTED PRN PRN Reason: decreased respiratory rate Neostigmine Methylsulfate (Neostigmine) Confirm Administered Dose 5 mg .ROUTE .STK-MED ONE Stop: 07/16/18 07:50 Ondansetron HCl (Zofran) Confirm Administered Dose 4 mg .ROUTE .STK-MED ONE Stop: 07/16/18 07:50 Pantoprazole Sodium (Protonix Iv) 40 mg IVPUSH Q24H [facility] Last Admin: 07/17/18 16:29 Dose: 40 mg Propofol (Diprivan 20 Ml) Confirm Administered Dose 200 mg .ROUTE .STK-MED ONE Stop: 07/16/18 07:50 Rocuronium Coello (Zemuron) Confirm Administered Dose 50 mg .ROUTE .STK-MED ONE Stop: 07/16/18 07:50 Scopolamine (Transderm-Scop) 1.5 mg TOP ONETIME ONE Stop: 07/16/18 06:16 Last Admin: 07/16/18 06:28 Dose: 1.5 mg Succinylcholine Chloride (Quelicin) Confirm Administered Dose 200 mg .ROUTE .STK -MED ONE Stop: 07/16/18 07:50 Tamsulosin HCl (Flomax) 0.4 mg PO ONETIME ONE Stop: 07/19/18 09:01 Last Admin: 07/19/18 08:16 Dose: 0.4 mg - Exam Quality Assessment: Urine Catheter, DVT Prophylaxis General: Alert, Oriented, Mild Distress Lungs: Clear to Auscultation, Normal Respiratory Effort Cardiovascular: Regular Rate, Regular Rhythm, No Murmurs GI/Abdominal Exam: Soft, No Organomegaly, Distended, Tender. No: Guarding, Rigid, Rebound Extremities: Non-Tender, Pedal Edema - Problem List Review Problem List Initiated/Reviewed/Updated: Yes - My Orders Last 24 Hours: My Active Orders 07/20/18 13:00 Albumin Human [Albumin 25%] 25 gm in 100 ml IV Q24H 07/20/18 13:55 Convert IV to Saline Lock [OM.PC] Routine 07/20/18 19:39 Patient Status [ADT] Routine 07/20/18 19:44 NG [Gastrointestinal Tube Mgmt] [RC] Q6H NG [Nasogastric Orogastric Tube Insertion] [OM.PC] Routine 07/20/18 20:04 Urinary Catheter Assessment [RC] Q6H 07/20/18 22:17 HYDROmorphone [Dilaudid] 0.5 mg IVPUSH Q2H PRN 07/21/18 10:08 SODIUM,NA [CHEM] Stat 07/21/18 10:10 LORazepam [Ativan] 0.5 mg IVPUSH Q4H PRN 07/21/18 14:00 SODIUM,NA [CHEM] Stat 07/21/18 18:00 POTASSIUM,K [CHEM] Stat SODIUM,NA [CHEM] Stat 07/21/18 20:15 Insert Buchanan Catheter [Insert Urinary Catheter] [OM.PC] Q24H 07/21/18 Breakfast NPO [Nothing Per Oral Diet] [DIET] - Plan Plan:: ASSESSMENT AND RECOMMENDATIONS HYPONATREMIA-improved and level of increase has remained close to safe range over the last 24 hours. She started a spontaneous diuresis yesterday which has continued through the day today. Significant hyponatremia felt to be secondary to fluid overload. -Resume diuretic therapy in a.m. -Saline lock IV -Reassess sodium level in a.m. ACUTE KIDNEY INJURY-likely secondary to intravascular volume depletion and low albumin level. Renal function is showing good improvement over last 24 hours and she has started spontaneous diuresis early this morning. -Saline lock IV -Buchanan catheter to closely monitor urine output POSTOPERATIVE ILEUS -NG tube to low intermittent suction -Abdominal flat plate and upright x-ray in a.m. -Management per Dr. Gonsalez STATUS POST TOTAL ABDOMINAL HYSTERECTOMY AND BSO -Postoperative care per Dr. Gonsalez
[2018-07-21] MEDS: Bisacodyl 5 MG Tab PO SCH ×2 (11:16→21:15)
[2018-07-21] MEDS: Gabapentin 300 MG Cap PO SCH ×3 (11:16→21:16)
[2018-07-21] MEDS: Docusate Sodium 100 MG Cap PO SCH ×2 (11:16→21:16)
[2018-07-21] MEDS: Metoclopramide 10 MG/2 ML SDV IVPUSH SCH ×3 (11:24→21:38)
[2018-07-21] MEDS: Potassium Chloride 20 MEQ, Lidocaine 1% 2 ML in Sodium Chloride 0.9% 100 ML IV SCH ×3 (11:25→15:25)
[2018-07-21] MEDS: LORazepam 2 MG/ML SDV IVPUSH PRN ×2 (11:53→16:05)
[2018-07-21] MEDS: Bisacodyl 10 MG Supp RECTAL SCH (11:54)
--- NOTE | 2018-07-21 13:52 | PCM.PN ---
- General Info Date of Service: 07/21/18 Admission Dx/Problem (Free Text): Ewelina Grove is a 43 year old women who is postoperative day #5 from a hysterectomy. She is afebrile and labs this morning show hemoglobin 9.9, sodium increased to 124, potassium 3.5, chloride 90, total bilirubin 3.1, alkaline phosphatase 211, and BNP 198. She experienced significant diuresis over the night with administration of Bumex. Output through Buchanan catheter was 6125 mL. Total intake was 1185 mL and total output was 8560 mL. NG tube output was 850. She states she is in mild pain. Incision site appears to be healing well and steri strips are in place. Functional Status: Reports: Pain Controlled - Review of Systems General: Reports: Weakness, Fatigue HEENT: Reports: No Symptoms Pulmonary: Reports: No Symptoms Cardiovascular: Reports: No Symptoms Gastrointestinal: Reports: Abdominal Pain Genitourinary: Reports: No Symptoms Musculoskeletal: Reports: No Symptoms Skin: Reports: No Symptoms Neurological: Reports: Headache Psychiatric: Reports: No Symptoms - Patient Data Vitals - Most Recent: Last Vital Signs Temp 37.3 C 07/21/18 06:00 Pulse 102 H 07/21/18 11:04 Resp 14 07/21/18 06:00 BP 127/84 07/21/18 06:00 Pulse Ox 98 07/21/18 06:00 Orthostatic Blood Pressure [ 130/74 Supine] Orthostatic Blood Pressure [ 125/83 Standing] Orthostatic Blood Pressure [ 136/87 Sitting] Weight - Most Recent: 91.172 kg I&O - Last 24 Hours: Intake & Output 07/20/18 07/21/18 07/21/18 22:59 06:59 14:59 Intake Total 425 212 Output Total 4710 4735 1322 Balance -6227 -7926 -6692 Lab Results Last 24 Hours: Laboratory Results - last 24 hr 07/20/18 07/20/18 07/20/18 Range/Units 00:01 14:44 21:50 WBC (4.5-11.0) K/uL RBC (3.30-5.50) M/uL Hgb (12.0-15.0) g/dL Hct (36.0-48.0) % MCV (80-98) fL MCH (27-31) pg MCHC (32-36) % Plt Count (150-400) K/uL Sodium 122 L 116 L* 119 L* (140-148) mmol/L Potassium 4.5 (3.6-5.2) mmol/L Chloride 84 L (100-108) mmol/L Carbon Dioxide 24 (21-32) mmol/L Anion Gap 12.5 (5.0-14.0) mmol/L BUN 6 L (7-18) mg/dL Creatinine 1.9 H (0.6-1.0) mg/dL Est Cr Clr Drug Dosing 33.59 mL/min Estimated GFR (MDRD) 29 L (>60) Glucose 84 (74-106) mg/dL Calcium 8.7 (8.5-10.1) mg/dL Phosphorus (2.5-4.9) mg/dL Total Bilirubin (0.2-1.0) mg/dL AST (15-37) U/L ALT (12-78) U/L Alkaline Phosphatase (46-116) U/L NT-Pro-B Natriuret Pep (5-125) pg/mL Total Protein (6.4-8.2) g/dL Albumin (3.4-5.0) g/dL Globulin (2.3-3.5) g/dL Albumin/Globulin Ratio (1.2-2.2) 07/21/18 07/21/18 07/21/18 Range/Units 02:10 04:30 04:30 WBC 7.2 (4.5-11.0) K/uL RBC 3.26 L (3.30-5.50) M/uL Hgb 9.9 L (12.0-15.0) g/dL Hct 29.5 L (36.0-48.0) % MCV 91 (80-98) fL MCH 30 (27-31) pg MCHC 34 (32-36) % Plt Count 201 (150-400) K/uL Sodium 123 L 124 L (140-148) mmol/L Potassium 3.5 L (3.6-5.2) mmol/L Chloride 90 L (100-108) mmol/L Carbon Dioxide 24 (21-32) mmol/L Anion Gap 13.5 (5.0-14.0) mmol/L BUN 7 (7-18) mg/dL Creatinine 1.4 H (0.6-1.0) mg/dL Est Cr Clr Drug Dosing 45.59 mL/min Estimated GFR (MDRD) 41 L (>60) Glucose 66 L (74-106) mg/dL Calcium 8.7 (8.5-10.1) mg/dL Phosphorus 2.9 (2.5-4.9) mg/dL Total Bilirubin 3.1 H (0.2-1.0) mg/dL AST 30 (15-37) U/L ALT 25 (12-78) U/L Alkaline Phosphatase 211 H (46-116) U/L NT-Pro-B Natriuret Pep 198 H (5-125) pg/mL Total Protein 5.4 L (6.4-8.2) g/dL Albumin 2.4 L (3.4-5.0) g/dL Globulin 3.0 (2.3-3.5) g/dL Albumin/Globulin Ratio 0.8 L (1.2-2.2) /16/19 Range/Units 10:14 WBC (4.5-11.0) K/uL RBC (3.30-5.50) M/uL Hgb (12.0-15.0) g/dL Hct (36.0-48.0) % MCV (80-98) fL MCH (27-31) pg MCHC (32-36) % Plt Count (150-400) K/uL Sodium 126 L (140-148) mmol/L Potassium (3.6-5.2) mmol/L Chloride (100-108) mmol/L Carbon Dioxide (21-32) mmol/L Anion Gap (5.0-14.0) mmol/L BUN (7-18) mg/dL Creatinine (0.6-1.0) mg/dL Est Cr Clr Drug Dosing mL/min Estimated GFR (MDRD) (>60) Glucose (74-106) mg/dL Calcium (8.5-10.1) mg/dL Phosphorus (2.5-4.9) mg/dL Total Bilirubin (0.2-1.0) mg/dL AST (15-37) U/L ALT (12-78) U/L Alkaline Phosphatase (46-116) U/L NT-Pro-B Natriuret Pep (5-125) pg/mL Total Protein (6.4-8.2) g/dL Albumin (3.4-5.0) g/dL Globulin (2.3-3.5) g/dL Albumin/Globulin Ratio (1.2-2.2) Med Orders - Current: Current Medications Albuterol/Ipratropium (Duoneb 3.0-0.5 Mg/3 Ml) 3 ml INH QIDRT [facility] Last Admin: 07/21/18 11:00 Dose: 3 ml Albuterol/Ipratropium (Duoneb 3.0-0.5 Mg/3 Ml) 3 ml INH ASDIRECTED PRN PRN Reason: BREATHING Bisacodyl (Dulcolax) 10 mg PO BID [facility] Last Admin: 07/21/18 11:16 Dose: 10 mg Bisacodyl (Dulcolax) 10 mg RECTAL ONETIME PRN PRN Reason: IF NO RESULT FROM AM DOSE Stop: 07/21/18 19:00 Docusate Sodium (Colace) 100 mg PO BID [facility] Last Admin: 07/21/18 11:16 Dose: 100 mg Gabapentin (Neurontin) 300 mg PO TID [facility] Last Admin: 07/21/18 11:16 Dose: 300 mg Hydromorphone HCl (Dilaudid) 0.5 mg IVPUSH Q2H PRN PRN Reason: pain Last Admin: 07/21/18 02:59 Dose: 0.5 mg Albumin Human (Albumin 25%) 25 gm in 100 mls @ 25 mls/hr IV DAILY [facility] Stop: 07/22/18 12:59 Last Admin: 07/21/18 11:21 Dose: 25 mls/hr Albumin Human (Albumin 25%) 25 gm in 100 mls @ 25 mls/hr IV Q24H [facility] Stop: 07/22/18 16:59 Last Admin: 07/20/18 13:07 Dose: 25 mls/hr Potassium Chloride 20 meq/Lidocaine HCl 2 ml/ Sodium Chloride 112 mls @ 56 mls/ hr IV Q2H [facility] Stop: 07/21/18 14:59 Last Admin: 07/21/18 13:28 Dose: 56 mls/hr Lorazepam (Ativan) 0.5 mg IVPUSH Q4H PRN PRN Reason: Anxiety Last Admin: 07/21/18 11:53 Dose: 0.5 mg Metoclopramide HCl (Reglan) 10 mg IVPUSH Q6H [facility] Last Admin: 07/21/18 11:24 Dose: 10 mg Ondansetron HCl (Zofran) 4 mg IVPUSH Q4H PRN PRN Reason: Nausea/Vomiting Last Admin: 07/21/18 06:46 Dose: 4 mg Ondansetron HCl (Zofran Odt) 4 mg PO Q4H PRN PRN Reason: Nausea/Vomiting Last Admin: 07/20/18 04:05 Dose: 4 mg Oxycodone/Acetaminophen (Percocet 325-5 Mg) 1 - 2 tab PO Q4H PRN PRN Reason: paiin Last Admin: 07/20/18 15:42 Dose: 2 tab Pantoprazole Sodium (Protonix) 40 mg PO Q24H [facility] Last Admin: 07/20/18 15:32 Dose: 40 mg Senna/Docusate Sodium (Senna Plus) 2 tab PO DAILY [facility] Last Admin: 07/21/18 11:16 Dose: 2 tab Sodium Chloride (Saline Flush) 10 ml IV ASDIRECTED 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 HCl (Flomax) 0.4 mg PO BEDTIME [facility] Last Admin: 07/20/18 21:08 Dose: Not Given Discontinued Medications Acetaminophen (Tylenol Extra Strength) 1,000 mg PO ONETIME ONE Stop: 07/16/18 06:16 Last Admin: 07/16/18 06:28 Dose: 1,000 mg Albuterol/Ipratropium (Duoneb 3.0-0.5 Mg/3 Ml) 3 ml NEB ONETIME ONE Stop: 07/16/18 07:01 Last Admin: 07/16/18 06:28 Dose: 3 ml Bisacodyl (Dulcolax) 10 mg RECTAL BID [facility] Last Admin: 07/21/18 11:54 Dose: 10 mg Bumetanide (Bumex) 4 mg IVPUSH ONETIME ONE Stop: 07/20/18 15:46 Last Admin: 07/20/18 15:52 Dose: 4 mg Bumetanide (Bumex) 2 mg IVPUSH NOW ONE Stop: 07/21/18 08:01 Last Admin: 07/21/18 08:20 Dose: 2 mg Cefoxitin Sodium (Mefoxin) Confirm Administered Dose 2 gm .ROUTE .STK-MED ONE Stop: 07/16/18 07:02 Last Admin: 07/16/18 08:41 Dose: 2 gm Ropivacaine 45 ml/Dexamethasone 8 mg/Epinephrine HCl 0.4 mg/ Sodium Chloride 32.6 ml 0 ml NERVRT ASDIRECTED [facility]ILLY Last Admin: 07/16/18 08:58 Dose: 80 syringe Cyanocobalamin (Vitamin B12) 1,000 mcg IM ONETIME ONE Stop: 07/16/18 16:01 Last Admin: 07/16/18 17:53 Dose: 1,000 mcg Dexamethasone (Dexamethasone) Confirm Administered Dose 4 mg .ROUTE .STK-MED ONE Stop: 07/16/18 07:50 Fentanyl (Sublimaze) Confirm Administered Dose 100 mcg .ROUTE .STK-MED ONE Stop: 07/16/18 10:18 Fentanyl (Sublimaze) 100 mcg IVPUSH ONETIME ONE Stop: 07/16/18 11:20 Last Admin: 07/16/18 11:25 Dose: 100 mcg Fentanyl Citrate (Fentanyl) Confirm Administered Dose 500 mcg .ROUTE .ST-MED ONE Stop: 07/16/18 07:51 Furosemide (Lasix) 20 mg IVPUSH ONETIME ONE Stop: 07/18/18 17:56 Last Admin: 07/18/18 18:28 Dose: Not Given Furosemide (Lasix) 10 mg IVPUSH ONETIME ONE Stop: 07/18/18 17:57 Last Admin: 07/18/18 18:28 Dose: 10 mg Furosemide (Lasix) 10 mg IVPUSH ONETIME ONE Stop: 07/19/18 08:01 Last Admin: 07/19/18 08:17 Dose: 10 mg Furosemide (Lasix) 40 mg IVPUSH ONETIME STA Stop: 07/20/18 08:55 Last Admin: 07/20/18 08:59 Dose: 40 mg Gabapentin (Neurontin) 300 mg PO ONETIME ONE Stop: 07/16/18 06:16 Last Admin: 07/16/18 06:28 Dose: 300 mg Glycopyrrolate (Robinul) Confirm Administered Dose 1 mg .ROUTE .STK-MED ONE Stop: 07/16/18 07:50 Hydromorphone HCl (Dilaudid Ict Programmer 15 Mg In Ns 30 Ml) 0 mg IV ASDIRECTED PRN; 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 Last Admin: 07/18/18 00:33 Dose: 15 mg Hydroxyzine HCl (Vistaril) 100 mg IM ONETIME ONE Stop: 07/16/18 11:14 Last Admin: 07/16/18 11:18 Dose: 100 mg Hydroxyzine HCl (Vistaril) 100 mg IM Q4H PRN PRN Reason: pain Last Admin: 07/20/18 16:29 Dose: 100 mg Cefoxitin Sodium 2 gm/ Sodium (Chloride) 50 mls @ 100 mls/hr IV ONETIME ONE Stop: 07/16/18 08:29 Last Admin: 07/16/18 07:57 Dose: 100 mls/hr Dextrose/Lactated Ringer's (Dextrose 5%-Lactated Ringers) 1,000 mls @ 100 mls/ hr IV ASDIRECTED [facility] Last Admin: 07/16/18 06:29 Dose: 100 mls/hr Ketamine HCl 50 mg/ Sodium (Chloride) 50 mls @ 17 mls/hr IV ASDIRECTED [facility] Lactated Ringer's (Ringers, Lactated) Confirm Administered Dose 1,000 mls @ as directed .ROUTE .STK-MED ONE Stop: 07/16/18 10:32 Dextrose/Lactated Ringer's (Dextrose 5%-Lactated Ringers) 1,000 mls @ 150 mls/ hr IV ASDIRECTED [facility] Last Admin: 07/17/18 01:03 Dose: 150 mls/hr Multivitamins/Minerals 10 ml/Chromium/Copper/Manganese/Seleni/Zn 1 ml/ Dextrose/ Lactated Ringer's 1,011 mls @ 150 mls/hr IV DAILY@1600 [facility] Last Admin: 07/18/18 16:05 Dose: 150 mls/hr Cefoxitin Sodium 2 gm/ Sodium (Chloride) 50 mls @ 100 mls/hr IV Q6H [facility] Stop: 07/17/18 22:29 Last Admin: 07/17/18 22:50 Dose: 100 mls/hr Ferric Sodium Gluconate Complex 250 mg/ Sodium Chloride 120 mls @ 60 mls/hr IV Q24H [facility] Stop: 07/17/18 19:59 Last Admin: 07/17/18 18:00 Dose: 60 mls/hr Lactated Ringer's (Ringers, Lactated) 500 mls @ 999 mls/hr IV ASDIRECTED [facility] Stop: 07/16/18 15:31 Last Admin: 07/16/18 15:15 Dose: 999 mls/hr Lactated Ringer's (Ringers, Lactated) 500 mls @ 999 mls/hr IV ASDIRECTED [facility] Stop: 07/16/18 17:31 Last Admin: 07/16/18 17:00 Dose: 999 mls/hr Magnesium Sulfate 2 gm/ Premix 50 mls @ 25 mls/hr IV Q6H [facility] Stop: 07/19/18 05:59 Last Admin: 07/19/18 04:02 Dose: 25 mls/hr Dextrose/Lactated Ringer's (Dextrose 5%-Lactated Ringers) 1,000 mls @ 100 mls/ hr IV ASDIRECTED [facility] Last Admin: 07/18/18 22:44 Dose: 100 mls/hr Albumin Human (Albumin 25%) 25 gm in 100 mls @ 25 mls/hr IV ONETIME ONE Stop: 07/19/18 23:59 Last Admin: 07/19/18 20:42 Dose: 25 mls/hr Albumin Human (Albumin 25%) 25 gm in 100 mls @ 25 mls/hr IV ONETIME ONE Stop: 07/20/18 04:00 Last Admin: 07/20/18 01:21 Dose: 25 mls/hr Sodium Chloride (Normal Saline) 1,000 mls @ 80 mls/hr IV ASDIRECTED [facility] Last Admin: 07/20/18 05:42 Dose: 80 mls/hr Albumin Human (Albumin 25%) 25 gm in 100 mls @ 25 mls/hr IV Q24H [facility] Stop: 07/22/18 16:59 Sodium Chloride (Normal Saline) 1,000 mls @ 500 mls/hr IV ASDIRECTED [facility] Stop: 07/20/18 21:46 Last Admin: 07/20/18 19:47 Dose: 500 mls/hr Sodium Chloride (Normal Saline) 1,000 mls @ 250 mls/hr IV ASDIRECTED [facility] Stop: 07/21/18 02:31 Last Admin: 07/20/18 22:49 Dose: 250 mls/hr Potassium Chloride 20 meq/ (Sodium Chloride) 110 mls @ 55 mls/hr IV Q2H [facility] Stop: 07/21/18 14:59 Acetaminophen 1,000 mg/ Premix 100 mls @ 400 mls/hr IV NOW ONE Stop: 07/21/18 09:14 Last Admin: 07/21/18 09:43 Dose: 400 mls/hr Ketamine HCl (Ketalar) 28 mg IV ASDIRECTED [facility]ILLY Naloxone HCl (Narcan) 0.1 mg IV ASDIRECTED PRN PRN Reason: decreased respiratory rate Neostigmine Methylsulfate (Neostigmine) Confirm Administered Dose 5 mg .ROUTE .STK-MED ONE Stop: 07/16/18 07:50 Ondansetron HCl (Zofran) Confirm Administered Dose 4 mg .ROUTE .STK-MED ONE Stop: 07/16/18 07:50 Pantoprazole Sodium (Protonix Iv) 40 mg IVPUSH Q24H [facility] Last Admin: 07/17/18 16:29 Dose: 40 mg Propofol (Diprivan 20 Ml) Confirm Administered Dose 200 mg .ROUTE .STK-MED ONE Stop: 07/16/18 07:50 Rocuronium [place] (Zemuron) Confirm Administered Dose 50 mg .ROUTE .STK-MED ONE Stop: 07/16/18 07:50 Scopolamine (Transderm-Scop) 1.5 mg TOP ONETIME ONE Stop: 07/16/18 06:16 Last Admin: 07/16/18 06:28 Dose: 1.5 mg Succinylcholine Chloride (Quelicin) Confirm Administered Dose 200 mg .ROUTE .STK -MED ONE Stop: 07/16/18 07:50 Tamsulosin HCl (Flomax) 0.4 mg PO ONETIME ONE Stop: 07/19/18 09:01 Last Admin: 07/19/18 08:16 Dose: 0.4 mg - Exam General: Alert, Oriented Lungs: Clear to Auscultation, Normal Respiratory Effort Cardiovascular: Regular Rate, Regular Rhythm GI/Abdominal Exam: Soft, No Distention Extremities: Other (Bilateral lower extremity edema) Skin: Warm, Dry, Intact Wound/Incisions: Healing Well Neurological: No New Focal Deficit - Problem List Review Problem List Initiated/Reviewed/Updated: Yes - Assessment Assessment:: 1. Hyponatremia 2. Marked peripheral edema 3. Exploratory laparotomy, total abdominal hysterectomy, bilateral salpingo- oophorectomy, fundoplication of the pelvis, endometriosis and placement of Interceed mesh for severe menorrhagia resulting in marked anemia secondary to fibroid uterus, focal pelvis endometriosis, intraabdominal and pelvis adhesions. Date of surgery 07/16/2018. Surgeon, Errol Gonsalez MD 4. Post operative ileus - Plan Plan:: 1. Administer Potassium Chloride 60 milliequivalents IV piggyback today 2. Administer Bumex 2 mg IV push now to facilitate diuresis; ask Dr. Parham for further doses 3. Administer Reglan for GI motility 4. AM labs: CBC, CMP, Mg, Phosphorous, BNP 5. Recheck in AM or as needed
[2018-07-21] MEDS: Pantoprazole 40 MG Tab.CR PO SCH (15:11)
[2018-07-21] MEDS ORDERED: Bisacodyl 10 MG Supp RECTAL PRN (17:00)
[2018-07-21] MEDS: Tamsulosin 0.4 MG Cap.ER PO SCH (21:16)
[2018-07-21] MEDS: LORazepam 2 MG/ML SDV IV SCH (22:01)
[2018-07-22] MEDS: LORazepam 2 MG/ML SDV IV SCH ×12 (00:12→17:17)
[2018-07-22] MEDS: Metoclopramide 10 MG/2 ML SDV IVPUSH SCH ×4 (03:38→21:44)
[2018-07-22] MEDS ORDERED: D5 1/2 NS w/ 20 mEq/L KCl 1,000 ML IV SCH (07:45)
[2018-07-22] MEDS: Albuterol/Ipratropium 3.0-0.5 MG/3 ML Neb Soln INH SCH ×4 (07:57→20:52)
[2018-07-22] MEDS: Docusate Sodium 100 MG Cap PO SCH ×2 (08:22→20:52)
[2018-07-22] MEDS: Gabapentin 300 MG Cap PO SCH ×3 (08:23→20:52)
[2018-07-22] MEDS: Bisacodyl 5 MG Tab PO SCH ×2 (08:23→21:12)
[2018-07-22] MEDS: MVI, Adult with Vitamin K 10 ML, Thiamine 100 MG, Chromium/Copper/Mang/Selen/Zn 1 ML in... IV ONE ×8 (09:25→14:01)
[2018-07-22] MEDS: Potassium Phosphates 22.5 MMOLE in Sodium Chloride 0.9% 250 ML IV SCH ×2 (09:26→13:59)
[2018-07-22] MEDS: Magnesium Sulfate/Water 2 GM in Premix Bag 1 BAG IV SCH ×3 (09:32→21:41)
--- NOTE | 2018-07-22 09:57 | PCM.PN ---
- General Info Date of Service: 07/22/18 Functional Status: Reports: Pain Controlled - Review of Systems Systems Review Comment:: Ewelina Grove is on postoperative day #6 from a hysterectomy. Today she is sedated due to ETOH medications and unable to provide a meaningful review of systems or symptoms. Her daughter stopped by last evening and stated she does have alcohol dependence. Sodium increased from yesterday and is now at 132. Other labs show magnesium at 1.4, Potassium at 3.5, Chloride at 95. Total intake is 212 mL, total output through Buchanan catheter is 3575 mL. Total output through NG tube is 900 mL. She is tachycardic. Incision site appears to be healing well. - Patient Data Vitals - Most Recent: Last Vital Signs Temp 36.8 C 07/22/18 08:00 Pulse 112 H 07/22/18 08:00 Resp 20 07/22/18 08:00 BP 148/74 H 07/22/18 08:00 Pulse Ox 95 07/22/18 08:00 Orthostatic Blood Pressure [ 130/74 Supine] Orthostatic Blood Pressure [ 125/83 Standing] Orthostatic Blood Pressure [ 136/87 Sitting] Weight - Most Recent: 91.172 kg I&O - Last 24 Hours: Intake & Output 07/21/18 07/22/18 07/22/18 22:59 06:59 14:59 Output Total 1630 1000 Balance -1630 -1000 Lab Results Last 24 Hours: Laboratory Results - last 24 hr 07/20/18 07/21/18 07/21/18 Range/Units 03:45 10:14 14:00 WBC (4.5-11.0) K/uL RBC (3.30-5.50) M/uL Hgb (12.0-15.0) g/dL Hct (36.0-48.0) % MCV (80-98) fL MCH (27-31) pg MCHC (32-36) % Plt Count (150-400) K/uL Sodium 126 L 125 L (140-148) mmol/L Potassium (3.6-5.2) mmol/L Chloride (100-108) mmol/L Carbon Dioxide (21-32) mmol/L Anion Gap (5.0-14.0) mmol/L BUN (7-18) mg/dL Creatinine (0.6-1.0) mg/dL Est Cr Clr Drug Dosing mL/min Estimated GFR (MDRD) (>60) Glucose (74-106) mg/dL Plasma/Ser Osmolality 241 L (275-295) mOsmol/kg Calcium (8.5-10.1) mg/dL Phosphorus (2.5-4.9) mg/dL Magnesium (1.8-2.4) mg/dL Total Bilirubin (0.2-1.0) mg/dL AST (15-37) U/L ALT (12-78) U/L Alkaline Phosphatase (46-116) U/L NT-Pro-B Natriuret Pep (5-125) pg/mL Total Protein (6.4-8.2) g/dL Albumin (3.4-5.0) g/dL Globulin (2.3-3.5) g/dL Albumin/Globulin Ratio (1.2-2.2) 07/21/18 07/22/18 07/22/18 Range/Units 18:00 04:20 04:20 WBC 5.5 (4.5-11.0) K/uL RBC 3.16 L (3.30-5.50) M/uL Hgb 9.5 L (12.0-15.0) g/dL Hct 29.1 L (36.0-48.0) % MCV 92 (80-98) fL MCH 30 (27-31) pg MCHC 33 (32-36) % Plt Count 265 (150-400) K/uL Sodium 130 L 132 L (140-148) mmol/L Potassium 3.6 3.5 L (3.6-5.2) mmol/L Chloride 95 L (100-108) mmol/L Carbon Dioxide 23 (21-32) mmol/L Anion Gap 17.5 H (5.0-14.0) mmol/L BUN 5 L (7-18) mg/dL Creatinine 0.7 (0.6-1.0) mg/dL Est Cr Clr Drug Dosing 91.18 mL/min Estimated GFR (MDRD) > 60 (>60) Glucose 61 L (74-106) mg/dL Plasma/Ser Osmolality (275-295) mOsmol/kg Calcium 8.7 (8.5-10.1) mg/dL Phosphorus 2.5 (2.5-4.9) mg/dL Magnesium 1.4 L D (1.8-2.4) mg/dL Total Bilirubin 3.0 H (0.2-1.0) mg/dL AST 26 (15-37) U/L ALT 21 (12-78) U/L Alkaline Phosphatase 185 H (46-116) U/L NT-Pro-B Natriuret Pep 269 H (5-125) pg/mL Total Protein 5.8 L (6.4-8.2) g/dL Albumin 2.8 L (3.4-5.0) g/dL Globulin 3.0 (2.3-3.5) g/dL Albumin/Globulin Ratio 0.9 L (1.2-2.2) Med Orders - Current: Current Medications Albuterol/Ipratropium (Duoneb 3.0-0.5 Mg/3 Ml) 3 ml INH QIDRT [facility] Last Admin: 07/22/18 07:57 Dose: 3 ml Albuterol/Ipratropium (Duoneb 3.0-0.5 Mg/3 Ml) 3 ml INH ASDIRECTED PRN PRN Reason: BREATHING Bisacodyl (Dulcolax) 10 mg PO BID [facility] Last Admin: 07/22/18 08:23 Dose: 10 mg Docusate Sodium (Colace) 100 mg PO BID [facility] Last Admin: 07/22/18 08:22 Dose: 100 mg Gabapentin (Neurontin) 300 mg PO TID [facility] Last Admin: 07/22/18 08:23 Dose: 300 mg Hydromorphone HCl (Dilaudid) 0.5 mg IVPUSH Q2H PRN PRN Reason: pain Last Admin: 07/21/18 02:59 Dose: 0.5 mg Albumin Human (Albumin 25%) 25 gm in 100 mls @ 25 mls/hr IV DAILY [facility] Stop: 07/22/18 12:59 Last Admin: 07/22/18 09:02 Dose: 25 mls/hr Albumin Human (Albumin 25%) 25 gm in 100 mls @ 25 mls/hr IV Q24H [facility] Stop: 07/22/18 16:59 Last Admin: 07/21/18 16:07 Dose: 25 mls/hr Potassium Chloride/Dextrose/Sod Cl (D5 1/2 Ns W/ 20 Meq/L Kcl) 1,000 mls @ 60 mls/hr IV ASDIRECTED [facility] Multivitamins/Minerals 10 ml/Thiamine HCl 100 mg/ Chromium/Copper/Manganese/ Seleni/Zn 1 ml/ Potassium Chloride/Dextrose/Sod Cl 1,012 mls @ 60 mls/hr IV ONETIME ONE Stop: 07/23/18 06:51 Last Admin: 07/22/18 09:25 Dose: 60 mls/hr Magnesium Sulfate 2 gm/ Premix 50 mls @ 25 mls/hr IV Q6H [facility] Stop: 07/25/18 05:59 Last Admin: 07/22/18 09:32 Dose: 25 mls/hr Potassium Phosphate 22.5 mmole (/ Sodium Chloride) 257.5 mls @ 65 mls/hr IV Q4H [facility] Stop: 07/22/18 16:58 Last Admin: 07/22/18 09:26 Dose: 65 mls/hr Lorazepam (Ativan) 0.5 mg IVPUSH Q4H PRN PRN Reason: Anxiety Last Admin: 07/21/18 16:05 Dose: 0.5 mg Lorazepam (Ativan) 0 mg IV ASDIRECTED [facility]; Protocol Last Admin: 07/22/18 09:17 Dose: 2 mg Metoclopramide HCl (Reglan) 10 mg IVPUSH Q6H [facility] Last Admin: 07/22/18 03:38 Dose: 10 mg Ondansetron HCl (Zofran) 4 mg IVPUSH Q4H PRN PRN Reason: Nausea/Vomiting Last Admin: 07/21/18 06:46 Dose: 4 mg Ondansetron HCl (Zofran Odt) 4 mg PO Q4H PRN PRN Reason: Nausea/Vomiting Last Admin: 07/20/18 04:05 Dose: 4 mg Oxycodone/Acetaminophen (Percocet 325-5 Mg) 1 - 2 tab PO Q4H PRN PRN Reason: paiin Last Admin: 07/20/18 15:42 Dose: 2 tab Pantoprazole Sodium (Protonix) 40 mg PO Q24H [facility] Last Admin: 07/21/18 15:11 Dose: 40 mg Senna/Docusate Sodium (Senna Plus) 2 tab PO DAILY [facility] Last Admin: 07/22/18 08:23 Dose: 2 tab Sodium Chloride (Saline Flush) 10 ml IV ASDIRECTED PRN 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 Tamsulosin HCl (Flomax) 0.4 mg PO BEDTIME [facility] Last Admin: 07/21/18 21:16 Dose: 0.4 mg Discontinued Medications Acetaminophen (Tylenol Extra Strength) 1,000 mg PO ONETIME ONE Stop: 07/16/18 06:16 Last Admin: 07/16/18 06:28 Dose: 1,000 mg Albuterol/Ipratropium (Duoneb 3.0-0.5 Mg/3 Ml) 3 ml NEB ONETIME ONE Stop: 07/16/18 07:01 Last Admin: 07/16/18 06:28 Dose: 3 ml Bisacodyl (Dulcolax) 10 mg RECTAL BID [facility] Last Admin: 07/21/18 11:54 Dose: 10 mg Bisacodyl (Dulcolax) 10 mg RECTAL ONETIME PRN PRN Reason: IF NO RESULT FROM AM DOSE Stop: 07/21/18 19:00 Bumetanide (Bumex) 4 mg IVPUSH ONETIME ONE Stop: 07/20/18 15:46 Last Admin: 07/20/18 15:52 Dose: 4 mg Bumetanide (Bumex) 2 mg IVPUSH NOW ONE Stop: 07/21/18 08:01 Last Admin: 07/21/18 08:20 Dose: 2 mg Cefoxitin Sodium (Mefoxin) Confirm Administered Dose 2 gm .ROUTE .STK-MED ONE Stop: 07/16/18 07:02 Last Admin: 07/16/18 08:41 Dose: 2 gm Ropivacaine 45 ml/Dexamethasone 8 mg/Epinephrine HCl 0.4 mg/ Sodium Chloride 32.6 ml 0 ml NERVRT ASDIRECTED [facility] Last Admin: 07/16/18 08:58 Dose: 80 syringe Cyanocobalamin (Vitamin B12) 1,000 mcg IM ONETIME ONE Stop: 07/16/18 16:01 Last Admin: 07/16/18 17:53 Dose: 1,000 mcg Dexamethasone (Dexamethasone) Confirm Administered Dose 4 mg .ROUTE .STK-MED ONE Stop: 07/16/18 07:50 Fentanyl (Sublimaze) Confirm Administered Dose 100 mcg .ROUTE .STK-MED ONE Stop: 07/16/18 10:18 Fentanyl (Sublimaze) 100 mcg IVPUSH ONETIME ONE Stop: 07/16/18 11:20 Last Admin: 07/16/18 11:25 Dose: 100 mcg Fentanyl Citrate (Fentanyl) Confirm Administered Dose 500 mcg .ROUTE .STK-MED ONE Stop: 07/16/18 07:51 Furosemide (Lasix) 20 mg IVPUSH ONETIME ONE Stop: 07/18/18 17:56 Last Admin: 07/18/18 18:28 Dose: Not Given Furosemide (Lasix) 10 mg IVPUSH ONETIME ONE Stop: 07/18/18 17:57 Last Admin: 07/18/18 18:28 Dose: 10 mg Furosemide (Lasix) 10 mg IVPUSH ONETIME ONE Stop: 07/19/18 08:01 Last Admin: 07/19/18 08:17 Dose: 10 mg Furosemide (Lasix) 40 mg IVPUSH ONETIME STA Stop: 07/20/18 08:55 Last Admin: 07/20/18 08:59 Dose: 40 mg Gabapentin (Neurontin) 300 mg PO ONETIME ONE Stop: 07/16/18 06:16 Last Admin: 07/16/18 06:28 Dose: 300 mg Glycopyrrolate (Robinul) Confirm Administered Dose 1 mg .ROUTE .STK-MED ONE Stop: 07/16/18 07:50 Hydromorphone HCl (Dilaudid Extrusion Die Repairer 15 Mg In Ns 30 Ml) 0 mg IV ASDIRECTED PRN; Protocol PRN Reason: [employer] PAIN [employer]OL Last Admin: 07/18/18 00:33 Dose: 15 mg Hydroxyzine HCl (Vistaril) 100 mg IM ONETIME ONE Stop: 07/16/18 11:14 Last Admin: 07/16/18 11:18 Dose: 100 mg Hydroxyzine HCl (Vistaril) 100 mg IM Q4H PRN PRN Reason: pain Last Admin: 07/20/18 16:29 Dose: 100 mg Cefoxitin Sodium 2 gm/ Sodium (Chloride) 50 mls @ 100 mls/hr IV ONETIME ONE Stop: 07/16/18 08:29 Last Admin: 07/16/18 07:57 Dose: 100 mls/hr Dextrose/Lactated Ringer's (Dextrose 5%-Lactated Ringers) 1,000 mls @ 100 mls/ hr IV ASDIRECTED [facility] Last Admin: 07/16/18 06:29 Dose: 100 mls/hr Ketamine HCl 50 mg/ Sodium (Chloride) 50 mls @ 17 mls/hr IV ASDIRECTED [facility] Lactated Ringer's (Ringers, Lactated) Confirm Administered Dose 1,000 mls @ as directed .ROUTE .STK-MED ONE Stop: 07/16/18 10:32 Dextrose/Lactated Ringer's (Dextrose 5%-Lactated Ringers) 1,000 mls @ 150 [facility] Last Admin: 07/17/18 01:03 Dose: 150 mls/hr Multivitamins/Minerals 10 ml/Chromium/Copper/Manganese/Seleni/Zn 1 ml/ Dextrose/ Lactated Ringer's 1,011 mls @ 150 mls/hr IV DAILY@1600 [facility] Last Admin: 07/18/18 16:05 Dose: 150 mls/hr Cefoxitin Sodium 2 gm/ Sodium (Chloride) 50 mls @ 100 mls/hr IV Q6H [facility] Stop: 07/17/18 22:29 Last Admin: 07/17/18 22:50 Dose: 100 mls/hr Ferric Sodium Gluconate Complex 250 mg/ Sodium Chloride 120 mls @ 60 mls/hr IV Q24H [facility] Stop: 07/17/18 19:59 Last Admin: 07/17/18 18:00 Dose: 60 mls/hr Lactated Ringer's (Ringers, Lactated) 500 mls @ 999 mls/hr IV [facility] Stop: 07/16/18 15:31 Last Admin: 07/16/18 15:15 Dose: 999 mls/hr Lactated Ringer's (Ringers, Lactated) 500 mls @ 999 mls/hr IV [facility] Stop: 07/16/18 17:31 Last Admin: 07/16/18 17:00 Dose: 999 mls/hr Magnesium Sulfate 2 gm/ Premix 50 mls @ 25 mls/hr IV Q6H [facility] Stop: 07/19/18 05:59 Last Admin: 07/19/18 04:02 Dose: 25 mls/hr Dextrose/Lactated Ringer's (Dextrose 5%-Lactated Ringers) 1,000 mls @ 100 mls/ [facility] Last Admin: 07/18/18 22:44 Dose: 100 mls/hr Albumin Human (Albumin 25%) 25 gm in 100 mls @ 25 mls/hr IV ONETIME ONE Stop: 07/19/18 23:59 Last Admin: 07/19/18 20:42 Dose: 25 mls/hr Albumin Human (Albumin 25%) 25 gm in 100 mls @ 25 mls/hr IV ONETIME ONE Stop: 07/20/18 04:00 Last Admin: 07/20/18 01:21 Dose: 25 mls/hr Sodium Chloride (Normal Saline) 1,000 mls @ 80 mls/hr IV ASDIRECTED [facility] Last Admin: 07/20/18 05:42 Dose: 80 mls/hr Albumin Human (Albumin 25%) 25 gm in 100 mls @ 25 mls/hr IV Q24H [facility] Stop: 07/22/18 16:59 Sodium Chloride (Normal Saline) 1,000 mls @ 500 mls/hr IV ASDIRECTED [facility] Stop: 07/20/18 21:46 Last Admin: 07/20/18 19:47 Dose: 500 mls/hr Sodium Chloride (Normal Saline) 1,000 mls @ 250 mls/hr IV ASDIRECTED [facility] Stop: 07/21/18 02:31 Last Admin: 07/20/18 22:49 Dose: 250 mls/hr Potassium Chloride 20 meq/ (Sodium Chloride) 110 mls @ 55 mls/hr IV Q2H [facility] Stop: 07/21/18 14:59 Potassium Chloride 20 meq/Lidocaine HCl 2 ml/ Sodium Chloride 112 mls @ 56 mls/ hr IV Q2H [facility] Stop: 07/21/18 14:59 Last Admin: 07/21/18 15:25 Dose: 56 mls/hr Acetaminophen 1,000 mg/ Premix 100 mls @ 400 mls/hr IV NOW ONE Stop: 07/21/18 09:14 Last Admin: 07/21/18 09:43 Dose: 400 mls/hr Ketamine HCl (Ketalar) 28 mg IV ASDIRECTED [facility] Naloxone HCl (Narcan) 0.1 mg IV ASDIRECTED PRN PRN Reason: decreased respiratory rate Neostigmine Methylsulfate (Neostigmine) Confirm Administered Dose 5 mg .ROUTE .STK-MED ONE Stop: 07/16/18 07:50 Ondansetron HCl (Zofran) Confirm Administered Dose 4 mg .ROUTE .STK-MED ONE Stop: 07/16/18 07:50 Pantoprazole Sodium (Protonix Iv) 40 mg IVPUSH Q24H [facility] Last Admin: 07/17/18 16:29 Dose: 40 mg Propofol (Diprivan 20 Ml) Confirm Administered Dose 200 mg .ROUTE .STK-MED ONE Stop: 07/16/18 07:50 Rocuronium [place] (Zemuron) Confirm Administered Dose 50 mg .ROUTE .STK-MED ONE Stop: 07/16/18 07:50 Scopolamine (Transderm-Scop) 1.5 mg TOP ONETIME ONE Stop: 07/16/18 06:16 Last Admin: 07/16/18 06:28 Dose: 1.5 mg Succinylcholine Chloride (Quelicin) Confirm Administered Dose 200 mg .ROUTE .STK -MED ONE Stop: 07/16/18 07:50 Tamsulosin HCl (Flomax) 0.4 mg PO ONETIME ONE Stop: 07/19/18 09:01 Last Admin: 07/19/18 08:16 Dose: 0.4 mg - Exam General: Sedated, Lethargic Lungs: Normal Respiratory Effort, Other (Unable to perform full exam due to patient sedation and drowsiness) Cardiovascular: Regular Rhythm, Tachycardia GI/Abdominal Exam: Soft, No Distention Extremities: Other (Peripheral edema) - Problem List Review Problem List Initiated/Reviewed/Updated: Yes - Assessment Assessment:: 1. Hyponatremia 2. Marked peripheral edema 3. Exploratory laparotomy, total abdominal hysterectomy, bilateral salpingo- oophorectomy, fundoplication of the pelvis, endometriosis and placement of Interceed mesh for severe menorrhagia resulting in marked anemia secondary to fibroid uterus, focal pelvis endometriosis, intraabdominal and pelvis adhesions. Date of surgery 07/16/2018. Surgeon, Errol Gonsalez MD 4. Post operative ileus 5. ETOH withdrawal 6. Marked Hypoalbuminemia 7. Management of low blood sugar - Plan Plan:: 1. Administer IV D5LR 1/2 NS, 20 potassium chloride at 60 cc/hr, to avoid low blood sugar 2. Administer Potassium Phosphorous 45 millimoles IV piggyback today 3. AM Labs: CBC, CMP, Phosphorous in AM 4. Monitor ETOH withdrawal and manage with appropriate medication, add MVI/ Trace elements plus thiamine to IV fluids 5. Recheck in AM or as needed 6. Continue free water restriction for treatment of hyponatremia 7. Continue daily albumin infusions 8. Leave in NG tube, add Dulcolax suppository to encourage bowel function
--- NOTE | 2018-07-22 10:04 | PCM.PN ---
- General Info Date of Service: 07/22/18 Subjective Update: Ms. Grove has had further improvement in sodium level over the last 24 hours as well as ongoing excellent diuresis. It has become apparent that she is experiencing all call withdrawal, family reports long-standing daily alcohol use. She remains agitated and impulsive, high fall risk. Functional Status: Reports: Tolerating Diet - Review of Systems General: Reports: Weakness. Denies: Fever, Chills Pulmonary: Reports: No Symptoms Cardiovascular: Reports: No Symptoms Gastrointestinal: Reports: Abdominal Pain. Denies: Difficulty Swallowing, Nausea, Vomiting - Patient Data Vitals - Most Recent: Last Vital Signs Temp 98.2 F 07/22/18 08:00 Pulse 115 H 07/22/18 09:56 Resp 20 07/22/18 09:56 BP 145/108 H 07/22/18 09:56 Pulse Ox 94 L 07/22/18 09:56 Orthostatic Blood Pressure [ 130/74 Supine] Orthostatic Blood Pressure [ 125/83 Standing] Orthostatic Blood Pressure [ 136/87 Sitting] Weight - Most Recent: 200 lb 15.997 oz I&O - Last 24 Hours: Intake & Output 07/21/18 07/22/18 07/22/18 22:59 06:59 14:59 Output Total 1630 1000 Balance -1630 -1000 Lab Results Last 24 Hours: Laboratory Results - last 24 hr 07/20/18 07/21/18 07/21/18 Range/Units 03:45 10:14 14:00 WBC (4.5-11.0) K/uL RBC (3.30-5.50) M/uL Hgb (12.0-15.0) g/dL Hct (36.0-48.0) % MCV (80-98) fL MCH (27-31) pg MCHC (32-36) % Plt Count (150-400) K/uL Sodium 126 L 125 L (140-148) mmol/L Potassium (3.6-5.2) mmol/L Chloride (100-108) mmol/L Carbon Dioxide (21-32) mmol/L Anion Gap (5.0-14.0) mmol/L BUN (7-18) mg/dL Creatinine (0.6-1.0) mg/dL Est Cr Clr Drug Dosing mL/min Estimated GFR (MDRD) (>60) Glucose (74-106) mg/dL Plasma/Ser Osmolality 241 L (275-295) mOsmol/kg Calcium (8.5-10.1) mg/dL Phosphorus (2.5-4.9) mg/dL Magnesium (1.8-2.4) mg/dL Total Bilirubin (0.2-1.0) mg/dL AST (15-37) U/L ALT (12-78) U/L Alkaline Phosphatase (46-116) U/L NT-Pro-B Natriuret Pep (5-125) pg/mL Total Protein (6.4-8.2) g/dL Albumin (3.4-5.0) g/dL Globulin (2.3-3.5) g/dL Albumin/Globulin Ratio (1.2-2.2) 07/21/18 07/22/18 07/22/18 Range/Units 18:00 04:20 04:20 WBC 5.5 (4.5-11.0) K/uL RBC 3.16 L (3.30-5.50) M/uL Hgb 9.5 L (12.0-15.0) g/dL Hct 29.1 L (36.0-48.0) % MCV 92 (80-98) fL MCH 30 (27-31) pg MCHC 33 (32-36) % Plt Count 265 (150-400) K/uL Sodium 130 L 132 L (140-148) mmol/L Potassium 3.6 3.5 L (3.6-5.2) mmol/L Chloride 95 L (100-108) mmol/L Carbon Dioxide 23 (21-32) mmol/L Anion Gap 17.5 H (5.0-14.0) mmol/L BUN 5 L (7-18) mg/dL Creatinine 0.7 (0.6-1.0) mg/dL Est Cr Clr Drug Dosing 91.18 mL/min Estimated GFR (MDRD) > 60 (>60) Glucose 61 L (74-106) mg/dL Plasma/Ser Osmolality (275-295) mOsmol/kg Calcium 8.7 (8.5-10.1) mg/dL Phosphorus 2.5 (2.5-4.9) mg/dL Magnesium 1.4 L D (1.8-2.4) mg/dL Total Bilirubin 3.0 H (0.2-1.0) mg/dL AST 26 (15-37) U/L ALT 21 (12-78) U/L Alkaline Phosphatase 185 H (46-116) U/L NT-Pro-B Natriuret Pep 269 H (5-125) pg/mL Total Protein 5.8 L (6.4-8.2) g/dL Albumin 2.8 L (3.4-5.0) g/dL Globulin 3.0 (2.3-3.5) g/dL Albumin/Globulin Ratio 0.9 L (1.2-2.2) Med Orders - Current: Current Medications Albuterol/Ipratropium (Duoneb 3.0-0.5 Mg/3 Ml) 3 ml INH QIDRT [facility] Last Admin: 07/22/18 07:57 Dose: 3 ml Albuterol/Ipratropium (Duoneb 3.0-0.5 Mg/3 Ml) 3 ml INH ASDIRECTED PRN PRN Reason: BREATHING Bisacodyl (Dulcolax) 10 mg PO BID [facility] Last Admin: 07/22/18 08:23 Dose: 10 mg Bumetanide (Bumex) 2 mg IVPUSH ONETIME ONE Stop: 07/22/18 10:00 Docusate Sodium (Colace) 100 mg PO BID [facility] Last Admin: 07/22/18 08:22 Dose: 100 mg Gabapentin (Neurontin) 300 mg PO TID [facility] Last Admin: 07/22/18 08:23 Dose: 300 mg Hydromorphone HCl (Dilaudid) 0.5 mg IVPUSH Q2H PRN PRN Reason: pain Last Admin: 07/21/18 02:59 Dose: 0.5 mg Albumin Human (Albumin 25%) 25 gm in 100 mls @ 25 mls/hr IV DAILY [facility] Stop: 07/22/18 12:59 Last Admin: 07/22/18 09:02 Dose: 25 mls/hr Albumin Human (Albumin 25%) 25 gm in 100 mls @ 25 mls/hr IV Q24H [facility] Stop: 07/22/18 16:59 Last Admin: 07/21/18 16:07 Dose: 25 mls/hr Potassium Chloride/Dextrose/Sod Cl (D5 1/2 Ns W/ 20 Meq/L Kcl) 1,000 mls @ 60 mls/hr IV ASDIRECTED [facility] Multivitamins/Minerals 10 ml/Thiamine HCl 100 mg/ Chromium/Copper/Manganese/ Seleni/Zn 1 ml/ Potassium Chloride/Dextrose/Sod Cl 1,012 mls @ 60 mls/hr IV ONETIME ONE Stop: 07/23/18 06:51 Last Admin: 07/22/18 09:25 Dose: 60 mls/hr Magnesium Sulfate 2 gm/ Premix 50 mls @ 25 mls/hr IV Q6H [facility] Stop: 07/25/18 05:59 Last Admin: 07/22/18 09:32 Dose: 25 mls/hr Potassium Phosphate 22.5 mmole (/ Sodium Chloride) 257.5 mls @ 65 mls/hr IV Q4H [facility] Stop: 07/22/18 16:58 Last Admin: 07/22/18 09:26 Dose: 65 mls/hr Lorazepam (Ativan) 0.5 mg IVPUSH Q4H PRN PRN Reason: Anxiety Last Admin: 07/21/18 16:05 Dose: 0.5 mg Lorazepam (Ativan) 0 mg IV ASDIRECTED [facility]; Protocol Last Admin: 07/22/18 09:17 Dose: 2 mg Metoclopramide HCl (Reglan) 10 mg IVPUSH Q6H [facility] Last Admin: 07/22/18 03:38 Dose: 10 mg Ondansetron HCl (Zofran) 4 mg IVPUSH Q4H PRN PRN Reason: Nausea/Vomiting Last Admin: 07/21/18 06:46 Dose: 4 mg Ondansetron HCl (Zofran Odt) 4 mg PO Q4H PRN PRN Reason: Nausea/Vomiting Last Admin: 07/20/18 04:05 Dose: 4 mg Oxycodone/Acetaminophen (Percocet 325-5 Mg) 1 - 2 tab PO Q4H PRN PRN Reason: paiin Last Admin: 07/20/18 15:42 Dose: 2 tab Pantoprazole Sodium (Protonix) 40 mg PO Q24H [facility] Last Admin: 07/21/18 15:11 Dose: 40 mg Senna/Docusate Sodium (Senna Plus) 2 tab PO DAILY [facility] Last Admin: 07/22/18 08:23 Dose: 2 tab Sodium Chloride (Saline Flush) 10 ml IV ASDIRECTED PRN 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 Tamsulosin HCl (Flomax) 0.4 mg PO BEDTIME [facility] Last Admin: 07/21/18 21:16 Dose: 0.4 mg Discontinued Medications Acetaminophen (Tylenol Extra Strength) 1,000 mg PO ONETIME ONE Stop: 07/16/18 06:16 Last Admin: 07/16/18 06:28 Dose: 1,000 mg Albuterol/Ipratropium (Duoneb 3.0-0.5 Mg/3 Ml) 3 ml NEB ONETIME ONE Stop: 07/16/18 07:01 Last Admin: 07/16/18 06:28 Dose: 3 ml Bisacodyl (Dulcolax) 10 mg RECTAL BID [facility] Last Admin: 07/21/18 11:54 Dose: 10 mg Bisacodyl (Dulcolax) 10 mg RECTAL ONETIME PRN PRN Reason: IF NO RESULT FROM AM DOSE Stop: 07/21/18 19:00 Bumetanide (Bumex) 4 mg IVPUSH ONETIME ONE Stop: 07/20/18 15:46 Last Admin: 07/20/18 15:52 Dose: 4 mg Bumetanide (Bumex) 2 mg IVPUSH NOW ONE Stop: 07/21/18 08:01 Last Admin: 07/21/18 08:20 Dose: 2 mg Cefoxitin Sodium (Mefoxin) Confirm Administered Dose 2 gm .ROUTE .STK-MED ONE Stop: 07/16/18 07:02 Last Admin: 07/16/18 08:41 Dose: 2 gm Ropivacaine 45 ml/Dexamethasone 8 mg/Epinephrine HCl 0.4 mg/ Sodium Chloride 32.6 ml 0 ml NERVRT ASDIRECTED [facility] Last Admin: 07/16/18 08:58 Dose: 80 syringe Cyanocobalamin (Vitamin B12) 1,000 mcg IM ONETIME ONE Stop: 07/16/18 16:01 Last Admin: 07/16/18 17:53 Dose: 1,000 mcg Dexamethasone (Dexamethasone) Confirm Administered Dose 4 mg .ROUTE .STK-MED ONE Stop: 07/16/18 07:50 Fentanyl (Sublimaze) Confirm Administered Dose 100 mcg .ROUTE .STK-MED ONE Stop: 07/16/18 10:18 Fentanyl (Sublimaze) 100 mcg IVPUSH ONETIME ONE Stop: 07/16/18 11:20 Last Admin: 07/16/18 11:25 Dose: 100 mcg Fentanyl Citrate (Fentanyl) Confirm Administered Dose 500 mcg .ROUTE .STK-MED ONE Stop: 07/16/18 07:51 Furosemide (Lasix) 20 mg IVPUSH ONETIME ONE Stop: 07/18/18 17:56 Last Admin: 07/18/18 18:28 Dose: Not Given Furosemide (Lasix) 10 mg IVPUSH ONETIME ONE Stop: 07/18/18 17:57 Last Admin: 07/18/18 18:28 Dose: 10 mg Furosemide (Lasix) 10 mg IVPUSH ONETIME ONE Stop: 07/19/18 08:01 Last Admin: 07/19/18 08:17 Dose: 10 mg Furosemide (Lasix) 40 mg IVPUSH ONETIME STA Stop: 07/20/18 08:55 Last Admin: 07/20/18 08:59 Dose: 40 mg Gabapentin (Neurontin) 300 mg PO ONETIME ONE Stop: 07/16/18 06:16 Last Admin: 07/16/18 06:28 Dose: 300 mg Glycopyrrolate (Robinul) Confirm Administered Dose 1 mg .ROUTE .STK-MED ONE Stop: 07/16/18 07:50 Hydromorphone HCl (Dilaudid [employer] Examiner 15 Mg In Ns 30 Ml) 0 mg IV ASDIRECTED PRN; 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 Last Admin: 07/18/18 00:33 Dose: 15 mg Hydroxyzine HCl (Vistaril) 100 mg IM ONETIME ONE Stop: 07/16/18 11:14 Last Admin: 07/16/18 11:18 Dose: 100 mg Hydroxyzine HCl (Vistaril) 100 mg IM Q4H PRN PRN Reason: pain Last Admin: 07/20/18 16:29 Dose: 100 mg Cefoxitin Sodium 2 gm/ Sodium (Chloride) 50 mls @ 100 mls/hr IV ONETIME ONE Stop: 07/16/18 08:29 Last Admin: 07/16/18 07:57 Dose: 100 mls/hr Dextrose/Lactated Ringer's (Dextrose 5%-Lactated Ringers) 1,000 mls @ 100 mls/ hr IV ASDIRECTED [facility] Last Admin: 07/16/18 06:29 Dose: 100 mls/hr Ketamine HCl 50 mg/ Sodium (Chloride) 50 mls @ 17 mls/hr IV ASDIRECTED [facility] Lactated Ringer's (Ringers, Lactated) Confirm Administered Dose 1,000 mls @ as directed .ROUTE .STK-MED ONE Stop: 07/16/18 10:32 Dextrose/Lactated Ringer's (Dextrose 5%-Lactated Ringers) 1,000 mls @ 150 mls/ hr IV ASDIRECTED [facility] Last Admin: 07/17/18 01:03 Dose: 150 mls/hr Multivitamins/Minerals 10 ml/Chromium/Copper/Manganese/Seleni/Zn 1 ml/ Dextrose/ Lactated Ringer's 1,011 mls @ 150 mls/hr IV DAILY@1600 [facility] Last Admin: 07/18/18 16:05 Dose: 150 mls/hr Cefoxitin Sodium 2 gm/ Sodium (Chloride) 50 mls @ 100 mls/hr IV Q6H [facility] Stop: 07/17/18 22:29 Last Admin: 07/17/18 22:50 Dose: 100 mls/hr Ferric Sodium Gluconate Complex 250 mg/ Sodium Chloride 120 mls @ 60 mls/hr IV Q24H [facility] Stop: 07/17/18 19:59 Last Admin: 07/17/18 18:00 Dose: 60 mls/hr Lactated Ringer's (Ringers, Lactated) 500 mls @ 999 mls/hr IV ASDIRECTED [facility] Stop: 07/16/18 15:31 Last Admin: 07/16/18 15:15 Dose: 999 mls/hr Lactated Ringer's (Ringers, Lactated) 500 mls @ 999 mls/hr IV ASDIRECTED [facility] Stop: 07/16/18 17:31 Last Admin: 07/16/18 17:00 Dose: 999 mls/hr Magnesium Sulfate 2 gm/ Premix 50 mls @ 25 mls/hr IV Q6H [facility] Stop: 07/19/18 05:59 Last Admin: 07/19/18 04:02 Dose: 25 mls/hr Dextrose/Lactated Ringer's (Dextrose 5%-Lactated Ringers) 1,000 mls @ 100 mls/ hr IV ASDIRECTED [facility] Last Admin: 07/18/18 22:44 Dose: 100 mls/hr Albumin Human (Albumin 25%) 25 gm in 100 mls @ 25 mls/hr IV ONETIME ONE Stop: 07/19/18 23:59 Last Admin: 07/19/18 20:42 Dose: 25 mls/hr Albumin Human (Albumin 25%) 25 gm in 100 mls @ 25 mls/hr IV ONETIME ONE Stop: 07/20/18 04:00 Last Admin: 07/20/18 01:21 Dose: 25 mls/hr Sodium Chloride (Normal Saline) 1,000 mls @ 80 mls/hr IV ASDIRECTED [facility] Last Admin: 07/20/18 05:42 Dose: 80 mls/hr Albumin Human (Albumin 25%) 25 gm in 100 mls @ 25 mls/hr IV Q24H [facility] Stop: 07/22/18 16:59 Sodium Chloride (Normal Saline) 1,000 mls @ 500 mls/hr IV ASDIRECTED [facility] Stop: 07/20/18 21:46 Last Admin: 07/20/18 19:47 Dose: 500 mls/hr Sodium Chloride (Normal Saline) 1,000 mls @ 250 mls/hr IV ASDIRECTED [facility] Stop: 07/21/18 02:31 Last Admin: 07/20/18 22:49 Dose: 250 mls/hr Potassium Chloride 20 meq/ (Sodium Chloride) 110 mls @ 55 mls/hr IV Q2H [facility] Stop: 07/21/18 14:59 Potassium Chloride 20 meq/Lidocaine HCl 2 ml/ Sodium Chloride 112 mls @ 56 mls/ hr IV Q2H [facility] Stop: 07/21/18 14:59 Last Admin: 07/21/18 15:25 Dose: 56 mls/hr Acetaminophen 1,000 mg/ Premix 100 mls @ 400 mls/hr IV NOW ONE Stop: 07/21/18 09:14 Last Admin: 07/21/18 09:43 Dose: 400 mls/hr Ketamine HCl (Ketalar) 28 mg IV ASDIRECTED [facility] Naloxone HCl (Narcan) 0.1 mg IV ASDIRECTED PRN PRN Reason: decreased respiratory rate Neostigmine Methylsulfate (Neostigmine) Confirm Administered Dose 5 mg .ROUTE .STK-MED ONE Stop: 07/16/18 07:50 Ondansetron HCl (Zofran) Confirm Administered Dose 4 mg .ROUTE .STK-MED ONE Stop: 07/16/18 07:50 Pantoprazole Sodium (Protonix Iv) 40 mg IVPUSH Q24H [facility] Last Admin: 07/17/18 16:29 Dose: 40 mg Propofol (Diprivan 20 Ml) Confirm Administered Dose 200 mg .ROUTE .STK-MED ONE Stop: 07/16/18 07:50 Rocuronium [place] (Zemuron) Confirm Administered Dose 50 mg .ROUTE .STK-MED ONE Stop: 07/16/18 07:50 Scopolamine (Transderm-Scop) 1.5 mg TOP ONETIME ONE Stop: 07/16/18 06:16 Last Admin: 07/16/18 06:28 Dose: 1.5 mg Succinylcholine Chloride (Quelicin) Confirm Administered Dose 200 mg .ROUTE .STK -MED ONE Stop: 07/16/18 07:50 Tamsulosin HCl (Flomax) 0.4 mg PO ONETIME ONE Stop: 07/19/18 09:01 Last Admin: 07/19/18 08:16 Dose: 0.4 mg - Exam Quality Assessment: Urine Catheter, DVT Prophylaxis General: Alert, Mild Distress. No: Oriented, Cooperative Lungs: Clear to Auscultation, Normal Respiratory Effort Cardiovascular: Regular Rate, Regular Rhythm, No Murmurs GI/Abdominal Exam: Soft, No Organomegaly, Tender. No: Distended, Guarding, Rigid, Rebound Extremities: Non-Tender, No Pedal Edema - Problem List Review Problem List Initiated/Reviewed/Updated: Yes - My Orders Last 24 Hours: My Active Orders 07/21/18 10:10 LORazepam [Ativan] 0.5 mg IVPUSH Q4H PRN 07/21/18 18:13 Communication Order [RC] STAT 07/21/18 20:15 Insert Buchanan Catheter [Insert Urinary Catheter] [OM.PC] Q24H 07/21/18 21:25 CIWAA Assessment [RC] Q1H Seizure Precautions [OM.PC] Routine 07/21/18 21:26 Notify Provider [RC] PRN 07/21/18 21:30 LORazepam [Ativan] See Protocol IV ASDIRECTED 07/22/18 09:59 Bumetanide [Bumex] 2 mg IVPUSH ONETIME ONE 07/23/18 05:00 MAGNESIUM [CHEM] Timed - Plan Plan:: ASSESSMENT AND RECOMMENDATIONS HYPONATREMIA-further improvement over the last 24 hours, with diuresis -Bumex 2 mg IV now -Saline lock IV -Reassess sodium level in a.m. ACUTE KIDNEY INJURY-resolved -Saline lock IV -Discontinue Buchanan catheter POSTOPERATIVE ILEUS -NG tube to low intermittent suction -Abdominal flat plate and upright x-ray in a.m. -Management per Dr. Gonsalez ALCOHOL WITHDRAWAL-ongoing agitation and delirium -Alcohol withdrawal protocol STATUS POST TOTAL ABDOMINAL HYSTERECTOMY AND BSO -Postoperative care per Dr. Gonsalez
[2018-07-22] MEDS ORDERED: Bumetanide 1 MG/4 ML MDV IVPUSH ONE (10:15)
[2018-07-22] MEDS ORDERED: Lactated Ringers 1,000 ML IV SCH ×3 (15:30→23:00)
--- NOTE | 2018-07-22 16:30 | CRLUS ---
INDICATION: Tachycardia, fever, elevated bilirubin TECHNIQUE: Ultrasound abdomen limited. Sonographic images of the right upper quadrant were obtained using mckeon-scale and color Doppler images. COMPARISON: CT abdomen pelvis July 20, 2028 FINDINGS: The gallbladder is surgically absent. The liver, main portal vein, common bile duct, pancreas, right kidney, and IVC are not well seen on this exam due to overlying bowel gas. IMPRESSION: Nondiagnostic study due to overlying bowel gas. Dictated by Ewelina Paredes MD @ Jul 22 2018 4:21PM (Electronically Signed)
[2018-07-22] MEDS: HYDROmorphone 0.5 MG/0.5 ML Syringe IVPUSH PRN (16:49)
[2018-07-22] MEDS: Ampicillin/Sulbactam Na 1.5 GM in Sodium Chloride 0.9% 50 ML IV SCH ×2 (16:50→21:49)
[2018-07-22] MEDS: Pantoprazole 40 MG Tab.CR PO SCH (18:44)
[2018-07-22] MEDS: Haloperidol Lactate 5 MG/ML SDV IVPUSH PRN ×2 (18:44→23:00)
[2018-07-22] MEDS: Acetaminophen 650 MG Supp RECTAL PRN (19:13)
[2018-07-22] MEDS: Tamsulosin 0.4 MG Cap.ER PO SCH (21:12)
[2018-07-23] MEDS: Metoclopramide 10 MG/2 ML SDV IVPUSH SCH ×4 (03:52→22:45)
[2018-07-23] MEDS: Ampicillin/Sulbactam Na 1.5 GM in Sodium Chloride 0.9% 50 ML IV SCH ×4 (03:54→22:44)
--- NOTE | 2018-07-23 04:04 | CRLCR ---
INDICATION: Fever TECHNIQUE: Chest radiograph 2 views COMPARISON: 07/13/2018 FINDINGS: Mediastinum: The mediastinum is normal in appearance. The heart silhouette is normal in size and morphology. NG tube present with tip near the GE junction. Lung: Very small lung volumes are present with perihilar and bibasilar airspace opacities. No sign of pleural effusion seen. No pneumothorax is identified. Musculoskeletal: Unremarkable for age. IMPRESSIONS: 1. Very small lung volumes are present with perihilar and bibasilar airspace opacities. These findings can be seen with atelectasis and/or pneumonia. 2. NG tube present with tip near the GE junction. Dictated by Miguel Clement MD @ 07/23/2018 4:02:20 AM Dictated by: Miguel Clement MD @ 07/23/2018 04:02:25 (Electronically Signed)
[2018-07-23] MEDS: Magnesium Sulfate/Water 2 GM in Premix Bag 1 BAG IV SCH ×4 (04:25→22:43)
[2018-07-23] MEDS: D5 1/2 NS w/ 20 mEq/L KCl 1,000 ML IV SCH (06:59)
[2018-07-23] MEDS: Albuterol/Ipratropium 3.0-0.5 MG/3 ML Neb Soln INH SCH ×4 (07:41→20:47)
[2018-07-23] MEDS: Haloperidol Lactate 5 MG/ML SDV IVPUSH PRN ×4 (07:44→23:23)
[2018-07-23] MEDS ORDERED: Bumetanide 2.5 MG/10 ML MDV IVPUSH ONE (08:20)
--- NOTE | 2018-07-23 09:36 | PCM.PN ---
- General Info Date of Service: 07/23/18 Subjective Update: Ewelina has continued to experience severe alcohol withdrawal with agitation, requiring high doses of lorazepam as well as intermittent doses of Haldol. She is more sedated this morning, still intermittently agitated. She is experienced increase in heart rate and decrease in oxygen saturations requiring higher level of oxygen supplementation. Capnography shows decreased CO2 levels indicating hypo-ventilation. She is unable to provide a meaningful history concerning symptoms of systems because of her alcohol withdrawal and sedation. - Patient Data Vitals - Most Recent: Last Vital Signs Temp 99.2 F 07/23/18 08:00 Pulse 112 H 07/23/18 08:00 Resp 18 07/23/18 08:00 BP 131/75 07/23/18 08:00 Pulse Ox 96 07/23/18 08:00 Orthostatic Blood Pressure [ 130/74 Supine] Orthostatic Blood Pressure [ 125/83 Standing] Orthostatic Blood Pressure [ 136/87 Sitting] Weight - Most Recent: 200 lb 15.997 oz I&O - Last 24 Hours: Intake & Output 07/22/18 07/23/18 07/23/18 22:59 06:59 14:59 Intake Total 3133 1460 315 Output Total 50 100 1175 Balance 3083 1360 -860 Lab Results Last 24 Hours: Laboratory Results - last 24 hr 07/22/18 07/22/18 07/23/18 Range/Units 15:21 15:40 03:55 WBC 4.7 (4.5-11.0) K/uL RBC 3.11 L (3.30-5.50) M/uL Hgb 9.5 L (12.0-15.0) g/dL Hct 29.4 L (36.0-48.0) % MCV 95 (80-98) fL MCH 31 (27-31) pg MCHC 32 (32-36) % Plt Count 288 (150-400) K/uL Sodium (140-148) mmol/L Potassium (3.6-5.2) mmol/L Chloride (100-108) mmol/L Carbon Dioxide (21-32) mmol/L Anion Gap (5.0-14.0) mmol/L BUN (7-18) mg/dL Creatinine (0.6-1.0) mg/dL Est Cr Clr Drug Dosing mL/min Estimated GFR (MDRD) (>60) Glucose (74-106) mg/dL Lactic Acid 1.3 (0.4-2.0) mmol/L Calcium (8.5-10.1) mg/dL Phosphorus (2.5-4.9) mg/dL Magnesium (1.8-2.4) mg/dL Total Bilirubin (0.2-1.0) mg/dL AST (15-37) U/L ALT (12-78) U/L Alkaline Phosphatase (46-116) U/L Total Protein (6.4-8.2) g/dL Albumin (3.4-5.0) g/dL Globulin (2.3-3.5) g/dL Albumin/Globulin Ratio (1.2-2.2) Urine Color Yellow Urine Appearance Clear Urine pH 6.0 (4.5-8.0) Ur Specific [place] 1.010 (1.008-1.030) Urine Protein 30 H (NEGATIVE) mg/dL Urine Glucose (UA) Normal (NEGATIVE) mg/dL Urine Ketones 50 H (NEGATIVE) mg/dL Urine Occult Blood Large (NEGATIVE) Urine Nitrite Negative (NEGATIVE) Urine Bilirubin Negative (NEGATIVE) Urine Urobilinogen 1 (NORMAL) mg/dL Ur Leukocyte Esterase Moderate (NEGATIVE) Urine RBC 20-30 H (0-5) Urine WBC 10-20 H (0-5) Ur Epithelial Cells Few Amorphous Sediment Numerous Urine Bacteria Few Urine Mucus Rare 07/23/18 07/23/18 Range/Units 03:55 03:55 WBC (4.5-11.0) K/uL RBC (3.30-5.50) M/uL Hgb (12.0-15.0) g/dL Hct (36.0-48.0) % MCV (80-98) fL MCH (27-31) pg MCHC (32-36) % Plt Count (150-400) K/uL Sodium 138 L (140-148) mmol/L Potassium 3.6 (3.6-5.2) mmol/L Chloride 100 (100-108) mmol/L Carbon Dioxide 28 (21-32) mmol/L Anion Gap 13.6 (5.0-14.0) mmol/L BUN 4 L (7-18) mg/dL Creatinine 1.2 H D (0.6-1.0) mg/dL Est Cr Clr Drug Dosing 53.19 mL/min Estimated GFR (MDRD) 49 L (>60) Glucose 112 H (74-106) mg/dL Lactic Acid (0.4-2.0) mmol/L Calcium 8.4 L (8.5-10.1) mg/dL Phosphorus 4.2 (2.5-4.9) mg/dL Magnesium 2.4 D (1.8-2.4) mg/dL Total Bilirubin 2.6 H (0.2-1.0) mg/dL AST 26 (15-37) U/L ALT 17 (12-78) U/L Alkaline Phosphatase 141 H (46-116) U/L Total Protein 5.4 L (6.4-8.2) g/dL Albumin 2.7 L (3.4-5.0) g/dL Globulin 2.7 (2.3-3.5) g/dL Albumin/Globulin Ratio 1.0 L (1.2-2.2) Urine Color Urine Appearance Urine pH (4.5-8.0) Ur Specific [place] (1.008-1.030) Urine Protein (NEGATIVE) mg/dL Urine Glucose (UA) (NEGATIVE) mg/dL Urine Ketones (NEGATIVE) mg/dL Urine Occult Blood (NEGATIVE) Urine Nitrite (NEGATIVE) Urine Bilirubin (NEGATIVE) Urine Urobilinogen (NORMAL) mg/dL Ur Leukocyte Esterase (NEGATIVE) Urine RBC (0-5) Urine WBC (0-5) Ur Epithelial Cells Amorphous Sediment Urine Bacteria Urine Mucus Med Orders - Current: Current Medications Acetaminophen (Tylenol) 650 mg RECTAL Q4H PRN PRN Reason: Fever Last Admin: 07/22/18 19:13 Dose: 650 mg Albuterol/Ipratropium (Duoneb 3.0-0.5 Mg/3 Ml) 3 ml INH QIDRT [facility] Last Admin: 07/23/18 07:41 Dose: 3 ml Albuterol/Ipratropium (Duoneb 3.0-0.5 Mg/3 Ml) 3 ml INH ASDIRECTED PRN PRN Reason: BREATHING Bisacodyl (Dulcolax) 10 mg PO BID [facility] Last Admin: 07/22/18 21:12 Dose: Not Given Docusate Sodium (Colace) 100 mg PO BID [facility] Last Admin: 07/22/18 20:52 Dose: Not Given Gabapentin (Neurontin) 300 mg PO TID [facility] Last Admin: 07/22/18 20:52 Dose: Not Given Haloperidol Lactate (Haldol) 2 - 4 mg IVPUSH Q2H PRN PRN Reason: Agitation Last Admin: 07/23/18 07:44 Dose: 4 mg Hydromorphone HCl (Dilaudid) 0.5 mg IVPUSH Q2H PRN PRN Reason: pain Last Admin: 07/22/18 16:49 Dose: 0.5 mg Magnesium Sulfate 2 gm/ Premix 50 mls @ 25 mls/hr IV Q6H [facility] Stop: 07/25/18 05:59 Last Admin: 07/23/18 04:25 Dose: 25 mls/hr Ampicillin Sodium/Sulbactam (Sodium 1.5 gm/ Sodium Chloride) 50 mls @ 100 mls/ hr IV Q6H [facility] Last Admin: 07/23/18 03:54 Dose: 100 mls/hr Potassium Chloride/Dextrose/Sod Cl (D5 1/2 Ns W/ 20 Meq/L Kcl) 1,000 mls @ 60 mls/hr IV ASDIRECTED [facility] Last Admin: 07/23/18 06:59 Dose: 60 mls/hr Multivitamins/Minerals 10 ml/Thiamine HCl 100 mg/ Chromium/Copper/Manganese/ Seleni/Zn 1 ml/ Potassium Chloride/Dextrose/Sod Cl 1,012 mls @ 60 mls/hr IV DAILY@1600 [facility] Lorazepam (Ativan) 0 mg IV ASDIRECTED [facility]; Protocol Last Admin: 07/22/18 17:17 Dose: 2 mg Metoclopramide HCl (Reglan) 10 mg IVPUSH Q6H [facility] Last Admin: 07/23/18 03:52 Dose: 10 mg Ondansetron HCl (Zofran) 4 mg IVPUSH Q4H PRN PRN Reason: Nausea/Vomiting Last Admin: 07/21/18 06:46 Dose: 4 mg Ondansetron HCl (Zofran Odt) 4 mg PO Q4H PRN PRN Reason: Nausea/Vomiting Last Admin: 07/20/18 04:05 Dose: 4 mg Oxycodone/Acetaminophen (Percocet 325-5 Mg) 1 - 2 tab PO Q4H PRN PRN Reason: paiin Last Admin: 07/20/18 15:42 Dose: 2 tab Pantoprazole Sodium (Protonix) 40 mg PO Q24H [facility] Last Admin: 07/22/18 18:44 Dose: Not Given Senna/Docusate Sodium (Senna Plus) 2 tab PO DAILY [facility] Last Admin: 07/22/18 08:23 Dose: 2 tab Sodium Chloride (Saline Flush) 10 ml IV ASDIRECTED PRN PRN Reason: ACID SPLICER Tamsulosin HCl (Flomax) 0.4 mg PO BEDTIME [facility] Last Admin: 07/22/18 21:12 Dose: Not Given Discontinued Medications Acetaminophen (Tylenol Extra Strength) 1,000 mg PO ONETIME ONE Stop: 07/16/18 06:16 Last Admin: 07/16/18 06:28 Dose: 1,000 mg Albuterol/Ipratropium (Duoneb 3.0-0.5 Mg/3 Ml) 3 ml NEB ONETIME ONE Stop: 07/16/18 07:01 Last Admin: 07/16/18 06:28 Dose: 3 ml Bisacodyl (Dulcolax) 10 mg RECTAL BID [facility] Last Admin: 07/21/18 11:54 Dose: 10 mg Bisacodyl (Dulcolax) 10 mg RECTAL ONETIME PRN PRN Reason: IF NO RESULT FROM AM DOSE Stop: 07/21/18 19:00 Bumetanide (Bumex) 4 mg IVPUSH ONETIME ONE Stop: 07/20/18 15:46 Last Admin: 07/20/18 15:52 Dose: 4 mg Bumetanide (Bumex) 2 mg IVPUSH NOW ONE Stop: 07/21/18 08:01 Last Admin: 07/21/18 08:20 Dose: 2 mg Bumetanide (Bumex) 2 mg IVPUSH ONETIME ONE Stop: 07/22/18 10:16 Last Admin: 07/22/18 10:53 Dose: 2 mg Bumetanide (Bumex) 2 mg IVPUSH ONETIME ONE Stop: 07/23/18 08:21 Last Admin: 07/23/18 08:36 Dose: 2 mg Cefoxitin Sodium (Mefoxin) Confirm Administered Dose 2 gm .ROUTE .STK-MED ONE Stop: 07/16/18 07:02 Last Admin: 07/16/18 08:41 Dose: 2 gm Ropivacaine 45 ml/Dexamethasone 8 mg/Epinephrine HCl 0.4 mg/ Sodium Chloride 32.6 ml 0 ml NERVRT ASDIRECTED [facility] Last Admin: 07/16/18 08:58 Dose: 80 syringe Cyanocobalamin (Vitamin B12) 1,000 mcg IM ONETIME ONE Stop: 07/16/18 16:01 Last Admin: 07/16/18 17:53 Dose: 1,000 mcg Dexamethasone (Dexamethasone) Confirm Administered Dose 4 mg .ROUTE .STK-MED ONE Stop: 07/16/18 07:50 Fentanyl (Sublimaze) Confirm Administered Dose 100 mcg .ROUTE .STK-MED ONE Stop: 07/16/18 10:18 Fentanyl (Sublimaze) 100 mcg IVPUSH ONETIME ONE Stop: 07/16/18 11:20 Last Admin: 07/16/18 11:25 Dose: 100 mcg Fentanyl Citrate (Fentanyl) Confirm Administered Dose 500 mcg .ROUTE .STK-MED ONE Stop: 07/16/18 07:51 Furosemide (Lasix) 20 mg IVPUSH ONETIME ONE Stop: 07/18/18 17:56 Last Admin: 07/18/18 18:28 Dose: Not Given Furosemide (Lasix) 10 mg IVPUSH ONETIME ONE Stop: 07/18/18 17:57 Last Admin: 07/18/18 18:28 Dose: 10 mg Furosemide (Lasix) 10 mg IVPUSH ONETIME ONE Stop: 07/19/18 08:01 Last Admin: 07/19/18 08:17 Dose: 10 mg Furosemide (Lasix) 40 mg IVPUSH ONETIME STA Stop: 07/20/18 08:55 Last Admin: 07/20/18 08:59 Dose: 40 mg Gabapentin (Neurontin) 300 mg PO ONETIME ONE Stop: 07/16/18 06:16 Last Admin: 07/16/18 06:28 Dose: 300 mg Glycopyrrolate (Robinul) Confirm Administered Dose 1 mg .ROUTE .STK-MED ONE Stop: 07/16/18 07:50 Hydromorphone HCl (Dilaudid [employer] 15 Mg In Ns 30 Ml) 0 mg IV ASDIRECTED PRN; Protocol PRN Reason: ADULT CARE PROVIDER PAIN CONTROL Last Admin: 07/18/18 00:33 Dose: 15 mg Hydroxyzine HCl (Vistaril) 100 mg IM ONETIME ONE Stop: 07/16/18 11:14 Last Admin: 07/16/18 11:18 Dose: 100 mg Hydroxyzine HCl (Vistaril) 100 mg IM Q4H PRN PRN Reason: pain Last Admin: 07/20/18 16:29 Dose: 100 mg Cefoxitin Sodium 2 gm/ Sodium (Chloride) 50 mls @ 100 mls/hr IV ONETIME ONE Stop: 07/16/18 08:29 Last Admin: 07/16/18 07:57 Dose: 100 mls/hr Dextrose/Lactated Ringer's (Dextrose 5%-Lactated Ringers) 1,000 mls @ 100 mls/ hr IV ASDIRECTED [facility] Last Admin: 07/16/18 06:29 Dose: 100 mls/hr Ketamine HCl 50 mg/ Sodium (Chloride) 50 mls @ 17 mls/hr IV ASDIRECTED [facility] Lactated Ringer's (Ringers, Lactated) Confirm Administered Dose 1,000 mls @ as directed .ROUTE .STK-MED ONE Stop: 07/16/18 10:32 Dextrose/Lactated Ringer's (Dextrose 5%-Lactated Ringers) 1,000 mls @ 150 mls/ hr IV ASDIRECTED [facility] Last Admin: 07/17/18 01:03 Dose: 150 mls/hr Multivitamins/Minerals 10 ml/Chromium/Copper/Manganese/Seleni/Zn 1 ml/ Dextrose/ Lactated Ringer's 1,011 mls @ 150 mls/hr IV DAILY@1600 [facility] Last Admin: 07/18/18 16:05 Dose: 150 mls/hr Cefoxitin Sodium 2 gm/ Sodium (Chloride) 50 mls @ 100 mls/hr IV Q6H [facility] Stop: 07/17/18 22:29 Last Admin: 07/17/18 22:50 Dose: 100 mls/hr Ferric Sodium Gluconate Complex 250 mg/ Sodium Chloride 120 mls @ 60 mls/hr IV Q24H [facility] Stop: 07/17/18 19:59 Last Admin: 07/17/18 18:00 Dose: 60 mls/hr Lactated Ringer's (Ringers, Lactated) 500 mls @ 999 mls/hr IV ASDIRECTED [facility] Stop: 07/16/18 15:31 Last Admin: 07/16/18 15:15 Dose: 999 mls/hr Lactated Ringer's (Ringers, Lactated) 500 mls @ 999 mls/hr IV ASDIRECTED [facility] Stop: 07/16/18 17:31 Last Admin: 07/16/18 17:00 Dose: 999 mls/hr Magnesium Sulfate 2 gm/ Premix 50 mls @ 25 mls/hr IV Q6H [facility] Stop: 07/19/18 05:59 Last Admin: 07/19/18 04:02 Dose: 25 mls/hr Dextrose/Lactated Ringer's (Dextrose 5%-Lactated Ringers) 1,000 mls @ 100 mls/ hr IV ASDIRECTED [facility] Last Admin: 07/18/18 22:44 Dose: 100 mls/hr Albumin Human (Albumin 25%) 25 gm in 100 mls @ 25 mls/hr IV ONETIME ONE Stop: 07/19/18 23:59 Last Admin: 07/19/18 20:42 Dose: 25 mls/hr Albumin Human (Albumin 25%) 25 gm in 100 mls @ 25 mls/hr IV ONETIME ONE Stop: 07/20/18 04:00 Last Admin: 07/20/18 01:21 Dose: 25 mls/hr Sodium Chloride (Normal Saline) 1,000 mls @ 80 mls/hr IV ASDIRECTED [facility] Last Admin: 07/20/18 05:42 Dose: 80 mls/hr Albumin Human (Albumin 25%) 25 gm in 100 mls @ 25 mls/hr IV DAILY [facility] Stop: 07/22/18 12:59 Last Admin: 07/22/18 09:02 Dose: 25 mls/hr Albumin Human (Albumin 25%) 25 gm in 100 mls @ 25 mls/hr IV Q24H [facility] Stop: 07/22/18 16:59 Albumin Human (Albumin 25%) 25 gm in 100 mls @ 25 mls/hr IV Q24H [facility] Stop: 07/22/18 16:59 Last Admin: 07/22/18 14:00 Dose: 25 mls/hr Sodium Chloride (Normal Saline) 1,000 mls @ 500 mls/hr IV ASDIRECTED [facility] Stop: 07/20/18 21:46 Last Admin: 07/20/18 19:47 Dose: 500 mls/hr Sodium Chloride (Normal Saline) 1,000 mls @ 250 mls/hr IV ASDIRECTED [facility] Stop: 07/21/18 02:31 Last Admin: 07/20/18 22:49 Dose: 250 mls/hr Potassium Chloride 20 meq/ (Sodium Chloride) 110 mls @ 55 mls/hr IV Q2H [facility] Stop: 07/21/18 14:59 Potassium Chloride 20 meq/Lidocaine HCl 2 ml/ Sodium Chloride 112 mls @ 56 mls/ hr IV Q2H [facility] Stop: 07/21/18 14:59 Last Admin: 07/21/18 15:25 Dose: 56 mls/hr Acetaminophen 1,000 mg/ Premix 100 mls @ 400 mls/hr IV NOW ONE Stop: 07/21/18 09:14 Last Admin: 07/21/18 09:43 Dose: 400 mls/hr Potassium Chloride/Dextrose/Sod Cl (D5 1/2 Ns W/ 20 Meq/L Kcl) 1,000 mls @ 60 mls/hr IV ASDIRECTED [facility] Multivitamins/Minerals 10 ml/Thiamine HCl 100 mg/ Chromium/Copper/Manganese/ Seleni/Zn 1 ml/ Potassium Chloride/Dextrose/Sod Cl 1,012 mls @ 60 mls/hr IV ONETIME ONE Stop: 07/23/18 06:51 Last Admin: 07/22/18 14:01 Dose: Not Given Potassium Phosphate 22.5 mmole (/ Sodium Chloride) 257.5 mls @ 65 mls/hr IV Q4H [facility] Stop: 07/22/18 16:58 Last Admin: 07/22/18 13:59 Dose: 65 mls/hr Lactated Ringer's (Ringers, Lactated) 1,000 mls @ 500 mls/hr IV ASDIRECTED [facility] Last Admin: 07/22/18 16:00 Dose: 500 mls/hr Lactated Ringer's (Ringers, Lactated) 1,000 mls @ 250 mls/hr IV ASDIRECTED [facility] Stop: 07/22/18 22:59 Last Admin: 07/22/18 19:33 Dose: 250 mls/hr Lactated Ringer's (Ringers, Lactated) 1,000 mls @ 125 mls/hr IV ASDIRECTED [facility] Last Admin: 07/22/18 23:01 Dose: 125 mls/hr Ketamine HCl (Ketalar) 28 mg IV ASDIRECTED [facility] Lorazepam (Ativan) 0.5 mg IVPUSH Q4H PRN PRN Reason: Anxiety Last Admin: 07/21/18 16:05 Dose: 0.5 mg Naloxone HCl (Narcan) 0.1 mg IV ASDIRECTED PRN PRN Reason: decreased respiratory rate Neostigmine Methylsulfate (Neostigmine) Confirm Administered Dose 5 mg .ROUTE .STK-MED ONE Stop: 07/16/18 07:50 Ondansetron HCl (Zofran) Confirm Administered Dose 4 mg .ROUTE .STK-MED ONE Stop: 07/16/18 07:50 Pantoprazole Sodium (Protonix Iv) 40 mg IVPUSH Q24H [facility] Last Admin: 07/17/18 16:29 Dose: 40 mg Propofol (Diprivan 20 Ml) Confirm Administered Dose 200 mg .ROUTE .STK-MED ONE Stop: 07/16/18 07:50 Rocuronium [place] (Zemuron) Confirm Administered Dose 50 mg .ROUTE .STK-MED ONE Stop: 07/16/18 07:50 Scopolamine (Transderm-Scop) 1.5 mg TOP ONETIME ONE Stop: 07/16/18 06:16 Last Admin: 07/16/18 06:28 Dose: 1.5 mg Succinylcholine Chloride (Quelicin) Confirm Administered Dose 200 mg .ROUTE .STK -MED ONE Stop: 07/16/18 07:50 Tamsulosin HCl (Flomax) 0.4 mg PO ONETIME ONE Stop: 07/19/18 09:01 Last Admin: 07/19/18 08:16 Dose: 0.4 mg - Exam Quality Assessment: Supplemental Oxygen (BiPAP), Urine Catheter, DVT Prophylaxis General: Sedated, Lethargic Lungs: Decreased Breath Sounds. No: Rales, Rhonchi, Rub, Wheezing Cardiovascular: Regular Rhythm, No Murmurs, Tachycardia GI/Abdominal Exam: Soft, No Organomegaly, Tender. No: Distended, Guarding, Rigid, Rebound Extremities: Non-Tender, Pedal Edema Skin: Warm, Dry - Problem List Review Problem List Initiated/Reviewed/Updated: Yes - My Orders Last 24 Hours: My Active Orders 07/22/18 12:13 Antiembolic Hose [OM.PC] Routine 07/22/18 14:22 Communication Order [RC] ASDIRECTED 07/22/18 15:21 Blood Culture x2 Reflex Set [OM.PC] Urgent 07/22/18 15:35 CULTURE BLOOD [BC] Urgent 07/22/18 15:40 CULTURE BLOOD [BC] Urgent 07/22/18 16:00 Ampicillin/Sulbactam Na [Unasyn] 1.5 gm Sodium Chloride 0.9% [Normal Saline] 50 ml IV Q6H 07/22/18 18:23 HOB [Head of Bed Elevation] [RC] ASDIRECTED 07/22/18 18:24 Haloperidol Lactate [Haldol] 2 - 4 mg IVPUSH Q2H PRN 07/22/18 18:59 Acetaminophen [Tylenol] 650 mg RECTAL Q4H PRN 07/22/18 20:13 CULTURE URINE [RM] Stat 07/23/18 08:06 Urinary Catheter Assessment [RC] ASDIRECTED 07/23/18 08:15 [place] Catheter Insertion [Insert Urinary Catheter] [OM.PC] Q24H 07/23/18 09:28 BIPAP Adult [RT BiPAP/CPAP] [RC] ASDIRECTED 07/23/18 09:29 Nrsg Assess Restraint Init/Mon [RC] Q1H 07/23/18 09:30 Initiate/Renew Non-Violent Restraints (All Ages) Q24H 07/23/18 10:00 BLOOD GAS ARTERIAL [BG] Stat 07/24/18 09:29 Nrsg NV Restr Reassessment [RC] Q24H - Plan Plan:: ASSESSMENT AND RECOMMENDATIONS HYPONATREMIA-resolved HYPOXIC AND HYPERCAPNIC RESPIRATORY COMPROMISE-secondary to sedation with hypoventilation, chest x-ray shows evidence of atelectasis and hypoventilation. No evidence of underlying infection or significant fluid in the lungs. -Continue use of OXIMETRY and capnography to monitor respiratory status -Noninvasive positive pressure ventilation -ABGs one hour after initiation of noninvasive positive pressure ventilation ACUTE KIDNEY INJURY-resolved -Saline lock IV POSTOPERATIVE ILEUS -NG tube to low intermittent suction -Abdominal flat plate and upright x-ray in a.m. -Management per Dr. Gonsalez ALCOHOL WITHDRAWAL-ongoing agitation and delirium -Alcohol withdrawal protocol -Haldol as needed in addition to lorazepam STATUS POST TOTAL ABDOMINAL HYSTERECTOMY AND BSO-ileus appears improved and Dr. Gonsalez is ordered the NG tube removed -Postoperative care per Dr. Gonsalez
[2018-07-23] MEDS: LORazepam 2 MG/ML SDV IV SCH ×6 (10:35→23:14)
[2018-07-23] MEDS: Gabapentin 300 MG Cap PO SCH ×3 (11:34→20:48)
[2018-07-23] MEDS: Docusate Sodium 100 MG Cap PO SCH ×2 (11:34→20:48)
[2018-07-23] MEDS: Bisacodyl 5 MG Tab PO SCH ×2 (11:34→20:48)
[2018-07-23] MEDS: Acetaminophen 650 MG Supp RECTAL PRN (14:09)
[2018-07-23] MEDS: MVI, Adult with Vitamin K 10 ML, Thiamine 100 MG, Chromium/Copper/Mang/Selen/Zn 1 ML in... IV SCH ×4 (16:05)
[2018-07-23] MEDS: Pantoprazole 40 MG Tab.CR PO SCH (16:05)
[2018-07-23] MEDS ORDERED: Lactated Ringers 1,000 ML IV ONE (20:19)
[2018-07-23] MEDS: Tamsulosin 0.4 MG Cap.ER PO SCH (20:48)
[2018-07-23] MEDS ORDERED: Lactated Ringers 1,000 ML IV SCH (22:30)
[2018-07-24] MEDS: Ampicillin/Sulbactam Na 1.5 GM in Sodium Chloride 0.9% 50 ML IV SCH (04:10)
[2018-07-24] MEDS: Metoclopramide 10 MG/2 ML SDV IVPUSH SCH ×4 (04:12→23:58)
[2018-07-24] MEDS: Magnesium Sulfate/Water 2 GM in Premix Bag 1 BAG IV SCH ×4 (04:13→23:54)
[2018-07-24] MEDS: LORazepam 2 MG/ML SDV IV SCH ×6 (04:22→22:53)
[2018-07-24] MEDS: Albuterol/Ipratropium 3.0-0.5 MG/3 ML Neb Soln INH SCH ×4 (07:17→21:20)
--- NOTE | 2018-07-24 09:40 | PCM.PN ---
- General Info Date of Service: 07/24/18 Subjective Update: Ms. Grove has continued to experience alcohol withdrawal with agitation, requiring large doses of lorazepam and intermittent dosing of Haldol. She developed respiratory compromise and currently is on noninvasive positive pressure ventilation which has worked well. Developed diarrhea during the night. Currently unable to provide meaningful history concerning symptoms or review of systems because of alcohol withdrawal and sedation. - Patient Data Vitals - Most Recent: Last Vital Signs Temp 97.2 F 07/24/18 04:00 Pulse 104 H 07/23/18 17:35 Resp 17 07/24/18 06:00 BP 142/87 H 07/24/18 06:00 Pulse Ox 100 07/24/18 06:00 Orthostatic Blood Pressure [ 130/74 Supine] Orthostatic Blood Pressure [ 125/83 Standing] Orthostatic Blood Pressure [ 136/87 Sitting] Weight - Most Recent: 200 lb 15.997 oz I&O - Last 24 Hours: Intake & Output 07/23/18 07/24/18 07/24/18 22:59 06:59 14:59 Intake Total 661 2175 Output Total 500 485 200 Balance 161 1690 -200 Lab Results Last 24 Hours: Laboratory Results - last 24 hr 07/23/18 07/24/18 07/24/18 Range/Units 10:00 03:59 03:59 WBC 7.8 (4.5-11.0) K/uL RBC 2.86 L (3.30-5.50) M/uL Hgb 8.9 L (12.0-15.0) g/dL Hct 27.6 L (36.0-48.0) % MCV 97 (80-98) fL MCH 31 (27-31) pg MCHC 32 (32-36) % Plt Count 231 (150-400) K/uL Puncture Site Lt radial ABG pH 7.480 H (7.350-7.450) ABG pCO2 39.7 (35.0-42.0) mmHg ABG pO2 69.2 L (75.0-100.0) mmHg ABG HCO3 29.2 H (22.0-26.0) mmol/L ABG Total CO2 26.9 H (21.0-25.0) mmol/L ABG O2 Saturation 93.9 L (95.0-98.0) % ABG O2 Content 12.6 L (15.0-23.0) %vol ABG Base Excess 5.6 mm/L ABG Hemoglobin 9.6 L (12.0-16.0) g/dL ABG Oxyhemoglobin 92.2 % ABG Carboxyhemoglobin 1.2 (0.0-1.6) % ABG Methemoglobin 0.6 % Hardeep Test Passed O2 Delivery Device Bipap Oxygen Flow Rate L Sodium 141 (140-148) mmol/L Potassium 3.7 (3.6-5.2) mmol/L Chloride 105 (100-108) mmol/L Carbon Dioxide 29 (21-32) mmol/L Anion Gap 7.2 (5.0-14.0) mmol/L BUN 4 L (7-18) mg/dL Creatinine 0.6 (0.6-1.0) mg/dL Est Cr Clr Drug Dosing 106.37 mL/min Estimated GFR (MDRD) > 60 (>60) Glucose 84 (74-106) mg/dL Calcium 7.9 L (8.5-10.1) mg/dL Phosphorus 2.5 (2.5-4.9) mg/dL Total Bilirubin 2.2 H (0.2-1.0) mg/dL AST 39 H (15-37) U/L ALT 14 (12-78) U/L Alkaline Phosphatase 109 (46-116) U/L Total Protein 4.4 L (6.4-8.2) g/dL Albumin 1.8 L (3.4-5.0) g/dL Globulin 2.6 (2.3-3.5) g/dL Albumin/Globulin Ratio 0.7 L (1.2-2.2) Blood Type Gel Antibody Screen Crossmatch 07/24/18 Range/Units 07:51 WBC (4.5-11.0) K/uL RBC (3.30-5.50) M/uL Hgb (12.0-15.0) g/dL Hct (36.0-48.0) % MCV (80-98) fL MCH (27-31) pg MCHC (32-36) % Plt Count (150-400) K/uL Puncture Site ABG pH (7.350-7.450) ABG pCO2 (35.0-42.0) mmHg ABG pO2 (75.0-100.0) mmHg ABG HCO3 (22.0-26.0) mmol/L ABG Total CO2 (21.0-25.0) mmol/L ABG O2 Saturation (95.0-98.0) % ABG O2 Content (15.0-23.0) %vol ABG Base Excess mm/L ABG Hemoglobin (12.0-16.0) g/dL ABG Oxyhemoglobin % ABG Carboxyhemoglobin (0.0-1.6) % ABG Methemoglobin % Hardeep Test O2 Delivery Device Oxygen Flow Rate L Sodium (140-148) mmol/L Potassium (3.6-5.2) mmol/L Chloride (100-108) mmol/L Carbon Dioxide (21-32) mmol/L Anion Gap (5.0-14.0) mmol/L BUN (7-18) mg/dL Creatinine (0.6-1.0) mg/dL Est Cr Clr Drug Dosing mL/min Estimated GFR (MDRD) (>60) Glucose (74-106) mg/dL Calcium (8.5-10.1) mg/dL Phosphorus (2.5-4.9) mg/dL Total Bilirubin (0.2-1.0) mg/dL AST (15-37) U/L ALT (12-78) U/L Alkaline Phosphatase (46-116) U/L Total Protein (6.4-8.2) g/dL Albumin (3.4-5.0) g/dL Globulin (2.3-3.5) g/dL Albumin/Globulin Ratio (1.2-2.2) Blood Type O POSITIVE Gel Antibody Screen Negative Crossmatch See Detail Abdirashid Results Last 24 Hours: Microbiology 07/22/18 20:13 Urine Culture - Preliminary Urine, Quick Cath (In-Out) MIXED ANDREI DAY 1 07/23/18 20:58 Clostridioides difficile (PCR) - Final Stool / Feces NEGATIVE CDIFF TOXIN 07/22/18 15:40 Aerobic Blood Culture - Preliminary Blood - Arm, Left NO GROWTH AFTER 1 DAY Anaerobic Blood Culture - Preliminary NO GROWTH AFTER 1 DAY 07/22/18 15:35 Aerobic Blood Culture - Preliminary Blood - Arm, Left NO GROWTH AFTER 1 DAY Anaerobic Blood Culture - Preliminary NO GROWTH AFTER 1 DAY Med Orders - Current: Current Medications Acetaminophen (Tylenol) 650 mg RECTAL Q4H PRN PRN Reason: Fever Last Admin: 07/23/18 14:09 Dose: 650 mg Albuterol/Ipratropium (Duoneb 3.0-0.5 Mg/3 Ml) 3 ml INH QIDRT [facility] Last Admin: 07/24/18 07:17 Dose: 3 ml Albuterol/Ipratropium (Duoneb 3.0-0.5 Mg/3 Ml) 3 ml INH ASDIRECTED PRN PRN Reason: BREATHING Bisacodyl (Dulcolax) 10 mg PO BID [facility] Last Admin: 07/23/18 20:48 Dose: Not Given Docusate Sodium (Colace) 100 mg PO BID [facility] Last Admin: 07/23/18 20:48 Dose: Not Given Gabapentin (Neurontin) 300 mg PO TID [facility] Last Admin: 07/23/18 20:48 Dose: Not Given Haloperidol Lactate (Haldol) 2 - 4 mg IVPUSH Q2H PRN PRN Reason: Agitation Last Admin: 07/23/18 23:23 Dose: 4 mg Hydromorphone HCl (Dilaudid) 0.5 mg IVPUSH Q2H PRN PRN Reason: pain Last Admin: 07/22/18 16:49 Dose: 0.5 mg Magnesium Sulfate 2 gm/ Premix 50 mls @ 25 mls/hr IV Q6H [facility] Stop: 07/25/18 05:59 Last Admin: 07/24/18 04:13 Dose: 25 mls/hr Potassium Chloride/Dextrose/Sod Cl (D5 1/2 Ns W/ 20 Meq/L Kcl) 1,000 mls @ 60 mls/hr IV ASDIRECTED [facility] Last Admin: 07/23/18 06:59 Dose: 60 mls/hr Multivitamins/Minerals 10 ml/Thiamine HCl 100 mg/ Chromium/Copper/Manganese/ Seleni/Zn 1 ml/ Potassium Chloride/Dextrose/Sod Cl 1,012 mls @ 60 mls/hr IV DAILY@1600 [facility] Last Admin: 07/23/18 16:05 Dose: 60 mls/hr Lactated Ringer's (Ringers, Lactated) 1,000 mls @ 60 mls/hr IV ASDIRECTED [facility] Last Admin: 07/23/18 22:37 Dose: 60 mls/hr Potassium Phosphate 22.5 mmole (/ Sodium Chloride) 257.5 mls @ 65 mls/hr IV Q4H [facility] Stop: 07/24/18 17:28 Lactobacillus Rhamnosus (Culturelle) 1 cap PO BID [facility] Lorazepam (Ativan) 0 mg IV ASDIRECTED [facility]; Protocol Last Admin: 07/24/18 04:22 Dose: 2 mg Metoclopramide HCl (Reglan) 10 mg IVPUSH Q6H [facility] Last Admin: 07/24/18 04:12 Dose: 10 mg Ondansetron HCl (Zofran) 4 mg IVPUSH Q4H PRN PRN Reason: Nausea/Vomiting Last Admin: 07/21/18 06:46 Dose: 4 mg Ondansetron HCl (Zofran Odt) 4 mg PO Q4H PRN PRN Reason: Nausea/Vomiting Last Admin: 07/20/18 04:05 Dose: 4 mg Oxycodone/Acetaminophen (Percocet 325-5 Mg) 1 - 2 tab PO Q4H PRN PRN Reason: paiin Last Admin: 07/20/18 15:42 Dose: 2 tab Pantoprazole Sodium (Protonix) 40 mg PO Q24H [facility] Last Admin: 07/23/18 16:05 Dose: Not Given Senna/Docusate Sodium (Senna Plus) 2 tab PO DAILY [facility] Last Admin: 07/23/18 11:35 Dose: Not Given Sodium Chloride (Saline Flush) 10 ml IV ASDIRECTED PRN PRN Reason: INTERMISSION COORDINATOR Tamsulosin HCl (Flomax) 0.4 mg PO BEDTIME [facility] Last Admin: 07/23/18 20:48 Dose: Not Given Discontinued Medications Acetaminophen (Tylenol Extra Strength) 1,000 mg PO ONETIME ONE Stop: 07/16/18 06:16 Last Admin: 07/16/18 06:28 Dose: 1,000 mg Albuterol/Ipratropium (Duoneb 3.0-0.5 Mg/3 Ml) 3 ml NEB ONETIME ONE Stop: 07/16/18 07:01 Last Admin: 07/16/18 06:28 Dose: 3 ml Bisacodyl (Dulcolax) 10 mg RECTAL BID [facility] Last Admin: 07/21/18 11:54 Dose: 10 mg Bisacodyl (Dulcolax) 10 mg RECTAL ONETIME PRN PRN Reason: IF NO RESULT FROM AM DOSE Stop: 07/21/18 19:00 Bumetanide (Bumex) 4 mg IVPUSH ONETIME ONE Stop: 07/20/18 15:46 Last Admin: 07/20/18 15:52 Dose: 4 mg Bumetanide (Bumex) 2 mg IVPUSH NOW ONE Stop: 07/21/18 08:01 Last Admin: 07/21/18 08:20 Dose: 2 mg Bumetanide (Bumex) 2 mg IVPUSH ONETIME ONE Stop: 07/22/18 10:16 Last Admin: 07/22/18 10:53 Dose: 2 mg Bumetanide (Bumex) 2 mg IVPUSH ONETIME ONE Stop: 07/23/18 08:21 Last Admin: 07/23/18 08:36 Dose: 2 mg Cefoxitin Sodium (Mefoxin) Confirm Administered Dose 2 gm .ROUTE .STK-MED ONE Stop: 07/16/18 07:02 Last Admin: 07/16/18 08:41 Dose: 2 gm Ropivacaine 45 ml/Dexamethasone 8 mg/Epinephrine HCl 0.4 mg/ Sodium Chloride 32.6 ml 0 ml NERVRT ASDIRECTED [facility] Last Admin: 07/16/18 08:58 Dose: 80 syringe Cyanocobalamin (Vitamin B12) 1,000 mcg IM ONETIME ONE Stop: 07/16/18 16:01 Last Admin: 07/16/18 17:53 Dose: 1,000 mcg Dexamethasone (Dexamethasone) Confirm Administered Dose 4 mg .ROUTE .STK-MED ONE Stop: 07/16/18 07:50 Fentanyl (Sublimaze) Confirm Administered Dose 100 mcg .ROUTE .STK-MED ONE Stop: 07/16/18 10:18 Fentanyl (Sublimaze) 100 mcg IVPUSH ONETIME ONE Stop: 07/16/18 11:20 Last Admin: 07/16/18 11:25 Dose: 100 mcg Fentanyl Citrate (Fentanyl) Confirm Administered Dose 500 mcg .ROUTE .STK-MED ONE Stop: 07/16/18 07:51 Furosemide (Lasix) 20 mg IVPUSH ONETIME ONE Stop: 07/18/18 17:56 Last Admin: 07/18/18 18:28 Dose: Not Given Furosemide (Lasix) 10 mg IVPUSH ONETIME ONE Stop: 07/18/18 17:57 Last Admin: 07/18/18 18:28 Dose: 10 mg Furosemide (Lasix) 10 mg IVPUSH ONETIME ONE Stop: 07/19/18 08:01 Last Admin: 07/19/18 08:17 Dose: 10 mg Furosemide (Lasix) 40 mg IVPUSH ONETIME STA Stop: 07/20/18 08:55 Last Admin: 07/20/18 08:59 Dose: 40 mg Gabapentin (Neurontin) 300 mg PO ONETIME ONE Stop: 07/16/18 06:16 Last Admin: 07/16/18 06:28 Dose: 300 mg Glycopyrrolate (Robinul) Confirm Administered Dose 1 mg .ROUTE .STK-MED ONE Stop: 07/16/18 07:50 Hydromorphone HCl (Dilaudid [employer] [facility] [employer] 15 Mg In Ns 30 Ml) 0 mg IV ASDIRECTED PRN; Protocol PRN Reason: [employer] Last Admin: 07/18/18 00:33 Dose: 15 mg Hydroxyzine HCl (Vistaril) 100 mg IM ONETIME ONE Stop: 07/16/18 11:14 Last Admin: 07/16/18 11:18 Dose: 100 mg Hydroxyzine HCl (Vistaril) 100 mg IM Q4H PRN PRN Reason: pain Last Admin: 07/20/18 16:29 Dose: 100 mg Cefoxitin Sodium 2 gm/ Sodium (Chloride) 50 mls @ 100 mls/hr IV ONETIME ONE Stop: 07/16/18 08:29 Last Admin: 07/16/18 07:57 Dose: 100 mls/hr Dextrose/Lactated Ringer's (Dextrose 5%-Lactated Ringers) 1,000 mls @ 100 mls/ hr IV ASDIRECTED [facility] Last Admin: 07/16/18 06:29 Dose: 100 mls/hr Ketamine HCl 50 mg/ Sodium (Chloride) 50 mls @ 17 mls/hr IV ASDIRECTED [facility] Lactated Ringer's (Ringers, Lactated) Confirm Administered Dose 1,000 mls @ as directed .ROUTE .STK-MED ONE Stop: 07/16/18 10:32 Dextrose/Lactated Ringer's (Dextrose 5%-Lactated Ringers) 1,000 mls @ 150 mls/ hr IV ASDIRECTED [facility] Last Admin: 07/17/18 01:03 Dose: 150 mls/hr Multivitamins/Minerals 10 ml/Chromium/Copper/Manganese/Seleni/Zn 1 ml/ Dextrose/ Lactated Ringer's 1,011 mls @ 150 mls/hr IV DAILY@1600 [facility] Last Admin: 07/18/18 16:05 Dose: 150 mls/hr Cefoxitin Sodium 2 gm/ Sodium (Chloride) 50 mls @ 100 mls/hr IV Q6H [facility] Stop: 07/17/18 22:29 Last Admin: 07/17/18 22:50 Dose: 100 mls/hr Ferric Sodium Gluconate Complex 250 mg/ Sodium Chloride 120 mls @ 60 mls/hr IV Q24H [facility] Stop: 07/17/18 19:59 Last Admin: 07/17/18 18:00 Dose: 60 mls/hr Lactated Ringer's (Ringers, Lactated) 500 mls @ 999 mls/hr IV ASDIRECTED [facility] Stop: 07/16/18 15:31 Last Admin: 07/16/18 15:15 Dose: 999 mls/hr Lactated Ringer's (Ringers, Lactated) 500 mls @ 999 mls/hr IV ASDIRECTED [facility] Stop: 07/16/18 17:31 Last Admin: 07/16/18 17:00 Dose: 999 mls/hr Magnesium Sulfate 2 gm/ Premix 50 mls @ 25 mls/hr IV Q6H [facility] Stop: 07/19/18 05:59 Last Admin: 07/19/18 04:02 Dose: 25 mls/hr Dextrose/Lactated Ringer's (Dextrose 5%-Lactated Ringers) 1,000 mls @ 100 mls/ hr IV ASDIRECTED [facility] Last Admin: 07/18/18 22:44 Dose: 100 mls/hr Albumin Human (Albumin 25%) 25 gm in 100 mls @ 25 mls/hr IV ONETIME ONE Stop: 07/19/18 23:59 Last Admin: 07/19/18 20:42 Dose: 25 mls/hr Albumin Human (Albumin 25%) 25 gm in 100 mls @ 25 mls/hr IV ONETIME ONE Stop: 07/20/18 04:00 Last Admin: 07/20/18 01:21 Dose: 25 mls/hr Sodium Chloride (Normal Saline) 1,000 mls @ 80 mls/hr IV ASDIRECTED [facility] Last Admin: 07/20/18 05:42 Dose: 80 mls/hr Albumin Human (Albumin 25%) 25 gm in 100 mls @ 25 mls/hr IV DAILY [facility] Stop: 07/22/18 12:59 Last Admin: 07/22/18 09:02 Dose: 25 mls/hr Albumin Human (Albumin 25%) 25 gm in 100 mls @ 25 mls/hr IV Q24H [facility] Stop: 07/22/18 16:59 Albumin Human (Albumin 25%) 25 gm in 100 mls @ 25 mls/hr IV Q24H [facility] Stop: 07/22/18 16:59 Last Admin: 07/22/18 14:00 Dose: 25 mls/hr Sodium Chloride (Normal Saline) 1,000 mls @ 500 mls/hr IV ASDIRECTED [facility] Stop: 07/20/18 21:46 Last Admin: 07/20/18 19:47 Dose: 500 mls/hr Sodium Chloride (Normal Saline) 1,000 mls @ 250 mls/hr IV ASDIRECTED [facility] Stop: 07/21/18 02:31 Last Admin: 07/20/18 22:49 Dose: 250 mls/hr Potassium Chloride 20 meq/ (Sodium Chloride) 110 mls @ 55 mls/hr IV Q2H [facility] Stop: 07/21/18 14:59 Potassium Chloride 20 meq/Lidocaine HCl 2 ml/ Sodium Chloride 112 mls @ 56 mls/ hr IV Q2H [facility] Stop: 07/21/18 14:59 Last Admin: 07/21/18 15:25 Dose: 56 mls/hr Acetaminophen 1,000 mg/ Premix 100 mls @ 400 mls/hr IV NOW ONE Stop: 07/21/18 09:14 Last Admin: 07/21/18 09:43 Dose: 400 mls/hr Potassium Chloride/Dextrose/Sod Cl (D5 1/2 Ns W/ 20 Meq/L Kcl) 1,000 mls @ 60 mls/hr IV ASDIRECTED [facility] Multivitamins/Minerals 10 ml/Thiamine HCl 100 mg/ Chromium/Copper/Manganese/ Seleni/Zn 1 ml/ Potassium Chloride/Dextrose/Sod Cl 1,012 mls @ 60 mls/hr IV ONETIME ONE Stop: 07/23/18 06:51 Last Admin: 07/22/18 14:01 Dose: Not Given Potassium Phosphate 22.5 mmole (/ Sodium Chloride) 257.5 mls @ 65 mls/hr IV Q4H [facility] Stop: 07/22/18 16:58 Last Admin: 07/22/18 13:59 Dose: 65 mls/hr Ampicillin Sodium/Sulbactam (Sodium 1.5 gm/ Sodium Chloride) 50 mls @ 100 mls/ hr IV Q6H [facility] Last Admin: 07/24/18 04:10 Dose: 100 mls/hr Lactated Ringer's (Ringers, Lactated) 1,000 mls @ 500 mls/hr IV ASDIRECTED [facility] Last Admin: 07/22/18 16:00 Dose: 500 mls/hr Lactated Ringer's (Ringers, Lactated) 1,000 mls @ 250 mls/hr IV ASDIRECTED [facility] Stop: 07/22/18 22:59 Last Admin: 07/22/18 19:33 Dose: 250 mls/hr Lactated Ringer's (Ringers, Lactated) 1,000 mls @ 125 mls/hr IV ASDIRECTED [facility] Last Admin: 07/22/18 23:01 Dose: 125 mls/hr Lactated Ringer's (Ringers, Lactated) 1,000 mls @ 500 mls/hr IV ONETIME ONE Stop: 07/23/18 22:18 Last Admin: 07/23/18 20:35 Dose: 500 mls/hr Ketamine HCl (Ketalar) 28 mg IV ASDIRECTED [facility] Lorazepam (Ativan) 0.5 mg IVPUSH Q4H PRN PRN Reason: Anxiety Last Admin: 07/21/18 16:05 Dose: 0.5 mg Naloxone HCl (Narcan) 0.1 mg IV ASDIRECTED PRN PRN Reason: decreased respiratory rate Neostigmine Methylsulfate (Neostigmine) Confirm Administered Dose 5 mg .ROUTE .STK-MED ONE Stop: 07/16/18 07:50 Ondansetron HCl (Zofran) Confirm Administered Dose 4 mg .ROUTE .STK-MED ONE Stop: 07/16/18 07:50 Pantoprazole Sodium (Protonix Iv) 40 mg IVPUSH Q24H [facility] Last Admin: 07/17/18 16:29 Dose: 40 mg Propofol (Diprivan 20 Ml) Confirm Administered Dose 200 mg .ROUTE .STK-MED ONE Stop: 07/16/18 07:50 Rocuronium [place] (Zemuron) Confirm Administered Dose 50 mg .ROUTE .STK-MED ONE Stop: 07/16/18 07:50 Scopolamine (Transderm-Scop) 1.5 mg TOP ONETIME ONE Stop: 07/16/18 06:16 Last Admin: 07/16/18 06:28 Dose: 1.5 mg Succinylcholine Chloride (Quelicin) Confirm Administered Dose 200 mg .ROUTE .STK -MED ONE Stop: 07/16/18 07:50 Tamsulosin HCl (Flomax) 0.4 mg PO ONETIME ONE Stop: 07/19/18 09:01 Last Admin: 07/19/18 08:16 Dose: 0.4 mg - Exam Quality Assessment: Supplemental Oxygen (Noninvasive positive pressure ventilation), Urine Catheter, DVT Prophylaxis General: Sedated, Lethargic Lungs: Normal Respiratory Effort, Rhonchi Cardiovascular: Regular Rhythm, Tachycardia GI/Abdominal Exam: Soft, No Organomegaly, No Distention, Tender. No: Guarding, Rigid, Rebound Extremities: Non-Tender, No Pedal Edema - Problem List Review Problem List Initiated/Reviewed/Updated: Yes - My Orders Last 24 Hours: My Active Orders 07/23/18 09:28 BIPAP Adult [RT BiPAP/CPAP] [RC] ASDIRECTED 07/23/18 09:29 Nrsg Assess Restraint Init/Mon [] Q1H 07/23/18 09:30 Initiate/Renew Non-Violent Restraints (All Ages) Q24H 07/23/18 22:30 Lactated Ringers [Ringers, Lactated] 1,000 ml IV ASDIRECTED 07/23/18 23:30 Rectal Tube Insertion [OM.PC] Routine 07/24/18 09:00 Lactobacillus Rhamnosus GG [Culturelle] 1 cap PO BID 07/24/18 09:29 Nrsg NV Restr Reassessment [] Q24H - Assessment Assessment:: x - Plan Plan:: ASSESSMENT AND RECOMMENDATIONS HYPONATREMIA-resolved HYPOXIC AND HYPERCAPNIC RESPIRATORY COMPROMISE-secondary to sedation with hypoventilation, chest x-ray shows evidence of atelectasis and hypoventilation. No evidence of underlying infection or significant fluid in the lungs. -Continue use of OXIMETRY and capnography to monitor respiratory status -Noninvasive positive pressure ventilation, transition to nasal cannula today if possible DIARRHEA-likely secondary to motility agents and recent antibiotic therapy, C. difficile found to be negative -Imodium as needed -Probiotic therapy twice daily ACUTE KIDNEY INJURY-resolved -Saline lock IV POSTOPERATIVE ILEUS -NG-tube removed -Management per Dr. Gonsalez ALCOHOL WITHDRAWAL-ongoing agitation and delirium -Plan to withdraw bleeding medications today to determine if she is experiencing ongoing withdrawal -Alcohol withdrawal protocol -Haldol as needed in addition to lorazepam STATUS POST TOTAL ABDOMINAL HYSTERECTOMY AND BSO-ileus appears improved and Dr. Gonsalez is ordered the NG tube removed -Postoperative care per Dr. Gonsalez
[2018-07-24] MEDS ORDERED: Loperamide 2 MG Cap PO PRN (09:52)
[2018-07-24] MEDS: Potassium Phosphates 22.5 MMOLE in Sodium Chloride 0.9% 250 ML IV SCH ×2 (10:08→14:23)
[2018-07-24] MEDS: Docusate Sodium 100 MG Cap PO SCH ×2 (10:44→21:20)
[2018-07-24] MEDS ORDERED: Furosemide 40 MG/4 ML VIAL IVPUSH ONE (11:17)
[2018-07-24] MEDS: Bisacodyl 5 MG Tab PO SCH ×2 (12:03→21:20)
[2018-07-24] MEDS: Gabapentin 300 MG Cap PO SCH ×3 (12:03→21:21)
[2018-07-24] MEDS: Lactobacillus Rhamnosus GG (Probiotic) Cap PO SCH ×2 (12:03→21:20)
[2018-07-24] MEDS: Acetaminophen 650 MG Supp RECTAL PRN (14:27)
[2018-07-24] MEDS: Pantoprazole 40 MG Tab.CR PO SCH (16:50)
[2018-07-24] MEDS ORDERED: Lactated Ringers 1,000 ML IV SCH ×2 (17:15)
[2018-07-24] MEDS: Haloperidol Lactate 5 MG/ML SDV IVPUSH PRN ×2 (17:20→19:31)
[2018-07-24] MEDS: D5 1/2 NS w/ 20 mEq/L KCl 1,000 ML IV SCH (19:30)
[2018-07-24] MEDS: MVI, Adult with Vitamin K 10 ML, Thiamine 100 MG, Chromium/Copper/Mang/Selen/Zn 1 ML in... IV SCH ×4 (19:36)
[2018-07-24] MEDS: HYDROmorphone 0.5 MG/0.5 ML Syringe IVPUSH PRN ×2 (20:16→23:54)
[2018-07-24] MEDS ORDERED: Lactated Ringers 1,000 ML IV ONE (21:00)
[2018-07-24] MEDS: Tamsulosin 0.4 MG Cap.ER PO SCH (21:21)
[2018-07-25] MEDS: LORazepam 2 MG/ML SDV IV SCH ×4 (02:53→20:45)
[2018-07-25] MEDS: HYDROmorphone 0.5 MG/0.5 ML Syringe IVPUSH PRN ×3 (02:56→21:24)
[2018-07-25] MEDS: Metoclopramide 10 MG/2 ML SDV IVPUSH SCH ×2 (04:25→10:47)
[2018-07-25] MEDS: Magnesium Sulfate/Water 2 GM in Premix Bag 1 BAG IV SCH (04:25)
[2018-07-25] MEDS: Albuterol/Ipratropium 3.0-0.5 MG/3 ML Neb Soln INH SCH ×4 (07:09→20:45)
--- NOTE | 2018-07-25 09:26 | PN ---
DATE OF SERVICE: 07/23/2018 The patient has run some low-grade temperatures and getting somewhat in the way of some pulmonary congestion. She is fairly calm this morning, after receiving some Haldol in addition to the Ativan, and we will need to keep a fine line between over-sedation and being out of control from a behavioral standpoint with withdrawal. Otherwise, urine output has been good. Her creatinine is up a little bit, but she received extra IV fluid at this point with Dr. Parham, and from a surgical standpoint has had little out of the NG tube, we will discontinue that today, and then will continue with the Dulcolax suppositories on a scheduled basis to try to stimulate bowel activity. Errol Gonsalez MD /[id number]
--- NOTE | 2018-07-25 09:54 | PCM.PN ---
- General Info Date of Service: 07/25/18 Subjective Update: There were no acute events overnight. The patient has continued to be agitated and is not able to provide any information regarding review of systems. She has been receiving both Haldol and lorazepam for her alcohol withdrawal. Vital signs have remained stable. She has not had any fevers. She does continue to require noninvasive ventilation intermittently. She has been having watery diarrhea. Functional Status: Denies: Ambulating - Review of Systems General: Denies: Fever - Patient Data Vitals - Most Recent: Last Vital Signs Temp 36 C 07/25/18 09:00 Pulse 89 07/25/18 07:09 Resp 14 07/25/18 09:00 BP 131/73 07/25/18 09:00 Pulse Ox 98 07/25/18 09:08 Orthostatic Blood Pressure [ 130/74 Supine] Orthostatic Blood Pressure [ 125/83 Standing] Orthostatic Blood Pressure [ 136/87 Sitting] Weight - Most Recent: 91.172 kg I&O - Last 24 Hours: Intake & Output 07/24/18 07/25/18 07/25/18 22:59 06:59 14:59 Intake Total 1000 2312 Output Total 225 585 Balance 775 1727 Lab Results Last 24 Hours: Laboratory Results - last 24 hr 07/24/18 07/25/18 07/25/18 Range/Units 07:51 04:33 04:33 WBC 5.5 (4.5-11.0) K/uL RBC 3.14 L (3.30-5.50) M/uL Hgb 9.8 L (12.0-15.0) g/dL Hct 29.5 L (36.0-48.0) % MCV 94 (80-98) fL MCH 31 (27-31) pg MCHC 33 (32-36) % Plt Count 205 (150-400) K/uL Sodium 141 (140-148) mmol/L Potassium 3.6 (3.6-5.2) mmol/L Chloride 109 H (100-108) mmol/L Carbon Dioxide 30 (21-32) mmol/L Anion Gap 5.6 (5.0-14.0) mmol/L BUN 3 L (7-18) mg/dL Creatinine 0.5 L (0.6-1.0) mg/dL Est Cr Clr Drug Dosing 127.65 mL/min Estimated GFR (MDRD) > 60 (>60) Glucose 75 (74-106) mg/dL Calcium 8.1 L (8.5-10.1) mg/dL Phosphorus 3.3 (2.5-4.9) mg/dL Total Bilirubin 1.4 H (0.2-1.0) mg/dL AST 24 (15-37) U/L ALT 13 (12-78) U/L Alkaline Phosphatase 115 (46-116) U/L Total Protein 4.3 L (6.4-8.2) g/dL Albumin 1.7 L (3.4-5.0) g/dL Globulin 2.6 (2.3-3.5) g/dL Albumin/Globulin Ratio 0.7 L (1.2-2.2) Free T4 (0.76-1.46) ng/dL TSH, Ultra Sensitive 6.242 H (0.358-3.740) uIU/mL Blood Type O POSITIVE Gel Antibody Screen Negative Crossmatch See Detail 07/25/18 Range/Units 09:17 WBC (4.5-11.0) K/uL RBC (3.30-5.50) M/uL Hgb (12.0-15.0) g/dL Hct (36.0-48.0) % MCV (80-98) fL MCH (27-31) pg MCHC (32-36) % Plt Count (150-400) K/uL Sodium (140-148) mmol/L Potassium (3.6-5.2) mmol/L Chloride (100-108) mmol/L Carbon Dioxide (21-32) mmol/L Anion Gap (5.0-14.0) mmol/L BUN (7-18) mg/dL Creatinine (0.6-1.0) mg/dL Est Cr Clr Drug Dosing mL/min Estimated GFR (MDRD) (>60) Glucose (74-106) mg/dL Calcium (8.5-10.1) mg/dL Phosphorus (2.5-4.9) mg/dL Total Bilirubin (0.2-1.0) mg/dL AST (15-37) U/L ALT (12-78) U/L Alkaline Phosphatase (46-116) U/L Total Protein (6.4-8.2) g/dL Albumin (3.4-5.0) g/dL Globulin (2.3-3.5) g/dL Albumin/Globulin Ratio (1.2-2.2) Free T4 0.58 L (0.76-1.46) ng/dL TSH, Ultra Sensitive (0.358-3.740) uIU/mL Blood Type Gel Antibody Screen Crossmatch [email or web address] Results Last 24 Hours: Microbiology 07/22/18 20:13 Urine Culture - Final Urine, Quick Cath (In-Out) MIXED ANDREI DAY 2 07/22/18 15:40 Aerobic Blood Culture - Preliminary Blood - Arm, Left NO GROWTH AFTER 2 DAYS Anaerobic Blood Culture - Preliminary NO GROWTH AFTER 2 DAYS 07/22/18 15:35 Aerobic Blood Culture - Preliminary Blood - Arm, Left NO GROWTH AFTER 2 DAYS Anaerobic Blood Culture - Preliminary NO GROWTH AFTER 2 DAYS Med Orders - Current: Current Medications Acetaminophen (Tylenol) 650 mg RECTAL Q4H PRN PRN Reason: Fever Last Admin: 07/24/18 14:27 Dose: 650 mg Albuterol/Ipratropium (Duoneb 3.0-0.5 Mg/3 Ml) 3 ml INH QIDRT [facility] Last Admin: 07/25/18 07:09 Dose: 3 ml Albuterol/Ipratropium (Duoneb 3.0-0.5 Mg/3 Ml) 3 ml INH ASDIRECTED PRN PRN Reason: BREATHING Bisacodyl (Dulcolax) 10 mg PO BID [facility] Last Admin: 07/24/18 21:20 Dose: Not Given Docusate Sodium (Colace) 100 mg PO BID [facility] Last Admin: 07/24/18 21:20 Dose: Not Given Gabapentin (Neurontin) 300 mg PO TID [facility] Last Admin: 07/24/18 21:21 Dose: Not Given Haloperidol Lactate (Haldol) 2 - 4 mg IVPUSH Q2H PRN PRN Reason: Agitation Last Admin: 07/24/18 19:31 Dose: 4 mg Hydromorphone HCl (Dilaudid) 0.5 mg IVPUSH Q2H PRN PRN Reason: pain Last Admin: 07/25/18 07:30 Dose: 0.5 mg Potassium Chloride/Dextrose/Sod Cl (D5 1/2 Ns W/ 20 Meq/L Kcl) 1,000 mls @ 60 mls/hr IV ASDIRECTED [facility] Last Admin: 07/24/18 19:30 Dose: 60 mls/hr Multivitamins/Minerals 10 ml/Thiamine HCl 100 mg/ Chromium/Copper/Manganese/ Seleni/Zn 1 ml/ Potassium Chloride/Dextrose/Sod Cl 1,012 mls @ 60 mls/hr IV DAILY@1600 [facility] Last Admin: 07/24/18 19:36 Dose: 60 mls/hr Lactated Ringer's (Ringers, Lactated) 1,000 mls @ 60 mls/hr IV ASDIRECTED [facility] Last Admin: 07/23/18 22:37 Dose: 60 mls/hr Potassium Phosphate 22.5 mmole (/ Sodium Chloride) 257.5 mls @ 86 mls/hr IV Q3H [facility] Stop: 07/25/18 15:59 Lactobacillus Rhamnosus (Culturelle) 1 cap PO BID [facility] Last Admin: 07/24/18 21:20 Dose: Not Given Loperamide HCl (Imodium) 2 mg PO Q4H PRN PRN Reason: Diarrhea Lorazepam (Ativan) 0 mg IV ASDIRECTED [facility]; Protocol Last Admin: 07/25/18 02:53 Dose: 2 mg Metoclopramide HCl (Reglan) 10 mg IVPUSH Q6H [facility] Last Admin: 07/25/18 04:25 Dose: 10 mg Ondansetron HCl (Zofran) 4 mg IVPUSH Q4H PRN PRN Reason: Nausea/Vomiting Last Admin: 07/21/18 06:46 Dose: 4 mg Ondansetron HCl (Zofran Odt) 4 mg PO Q4H PRN PRN Reason: Nausea/Vomiting Last Admin: 07/20/18 04:05 Dose: 4 mg Oxycodone/Acetaminophen (Percocet 325-5 Mg) 1 - 2 tab PO Q4H PRN PRN Reason: paiin Last Admin: 07/20/18 15:42 Dose: 2 tab Pantoprazole Sodium (Protonix) 40 mg PO Q24H [facility] Last Admin: 07/24/18 16:50 Dose: Not Given Senna/Docusate Sodium (Senna Plus) 2 tab PO DAILY [facility] Last Admin: 07/24/18 12:03 Dose: Not Given Sodium Chloride (Saline Flush) 10 ml IV ASDIRECTED PRN 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 Tamsulosin HCl (Flomax) 0.4 mg PO BEDTIME [facility] Last Admin: 07/24/18 21:21 Dose: Not Given Discontinued Medications Acetaminophen (Tylenol Extra Strength) 1,000 mg PO ONETIME ONE Stop: 07/16/18 06:16 Last Admin: 07/16/18 06:28 Dose: 1,000 mg Albuterol/Ipratropium (Duoneb 3.0-0.5 Mg/3 Ml) 3 ml NEB ONETIME ONE Stop: 07/16/18 07:01 Last Admin: 07/16/18 06:28 Dose: 3 ml Bisacodyl (Dulcolax) 10 mg RECTAL BID [facility] Last Admin: 07/21/18 11:54 Dose: 10 mg Bisacodyl (Dulcolax) 10 mg RECTAL ONETIME PRN PRN Reason: IF NO RESULT FROM AM DOSE Stop: 07/21/18 19:00 Bumetanide (Bumex) 4 mg IVPUSH ONETIME ONE Stop: 07/20/18 15:46 Last Admin: 07/20/18 15:52 Dose: 4 mg Bumetanide (Bumex) 2 mg IVPUSH NOW ONE Stop: 07/21/18 08:01 Last Admin: 07/21/18 08:20 Dose: 2 mg Bumetanide (Bumex) 2 mg IVPUSH ONETIME ONE Stop: 07/22/18 10:16 Last Admin: 07/22/18 10:53 Dose: 2 mg Bumetanide (Bumex) 2 mg IVPUSH ONETIME ONE Stop: 07/23/18 08:21 Last Admin: 07/23/18 08:36 Dose: 2 mg Cefoxitin Sodium (Mefoxin) Confirm Administered Dose 2 gm .ROUTE .STK-MED ONE Stop: 07/16/18 07:02 Last Admin: 07/16/18 08:41 Dose: 2 gm Ropivacaine 45 ml/Dexamethasone 8 mg/Epinephrine HCl 0.4 mg/ Sodium Chloride 32.6 ml 0 ml NERVRT ASDIRECTED [facility] Last Admin: 07/16/18 08:58 Dose: 80 syringe Cyanocobalamin (Vitamin B12) 1,000 mcg IM ONETIME ONE Stop: 07/16/18 16:01 Last Admin: 07/16/18 17:53 Dose: 1,000 mcg Dexamethasone (Dexamethasone) Confirm Administered Dose 4 mg .ROUTE .STK-MED ONE Stop: 07/16/18 07:50 Fentanyl (Sublimaze) Confirm Administered Dose 100 mcg .ROUTE .STK-MED ONE Stop: 07/16/18 10:18 Fentanyl (Sublimaze) 100 mcg IVPUSH ONETIME ONE Stop: 07/16/18 11:20 Last Admin: 07/16/18 11:25 Dose: 100 mcg Fentanyl Citrate (Fentanyl) Confirm Administered Dose 500 mcg .ROUTE .STK-MED ONE Stop: 07/16/18 07:51 Furosemide (Lasix) 20 mg IVPUSH ONETIME ONE Stop: 07/18/18 17:56 Last Admin: 07/18/18 18:28 Dose: Not Given Furosemide (Lasix) 10 mg IVPUSH ONETIME ONE Stop: 07/18/18 17:57 Last Admin: 07/18/18 18:28 Dose: 10 mg Furosemide (Lasix) 10 mg IVPUSH ONETIME ONE Stop: 07/19/18 08:01 Last Admin: 07/19/18 08:17 Dose: 10 mg Furosemide (Lasix) 40 mg IVPUSH ONETIME STA Stop: 07/20/18 08:55 Last Admin: 07/20/18 08:59 Dose: 40 mg Gabapentin (Neurontin) 300 mg PO ONETIME ONE Stop: 07/16/18 06:16 Last Admin: 07/16/18 06:28 Dose: 300 mg Glycopyrrolate (Robinul) Confirm Administered Dose 1 mg .ROUTE .ST-MED ONE Stop: 07/16/18 07:50 Hydromorphone HCl (Dilaudid Ground Layer 15 Mg In Ns 30 Ml) 0 mg IV ASDIRECTED PRN; 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 Last Admin: 07/18/18 00:33 Dose: 15 mg Hydroxyzine HCl (Vistaril) 100 mg IM ONETIME ONE Stop: 07/16/18 11:14 Last Admin: 07/16/18 11:18 Dose: 100 mg Hydroxyzine HCl (Vistaril) 100 mg IM Q4H PRN PRN Reason: pain Last Admin: 07/20/18 16:29 Dose: 100 mg Cefoxitin Sodium 2 gm/ Sodium (Chloride) 50 mls @ 100 mls/hr IV ONETIME ONE Stop: 07/16/18 08:29 Last Admin: 07/16/18 07:57 Dose: 100 mls/hr Dextrose/Lactated Ringer's (Dextrose 5%-Lactated Ringers) 1,000 mls @ 100 mls/ hr IV ASDIRECTED [facility] Last Admin: 07/16/18 06:29 Dose: 100 mls/hr Ketamine HCl 50 mg/ Sodium (Chloride) 50 mls @ 17 mls/hr IV ASDIRECTED [facility] Lactated Ringer's (Ringers, Lactated) Confirm Administered Dose 1,000 mls @ as directed .ROUTE .STK-MED ONE Stop: 07/16/18 10:32 Dextrose/Lactated Ringer's (Dextrose 5%-Lactated Ringers) 1,000 mls @ 150 mls/ [facility] Last Admin: 07/17/18 01:03 Dose: 150 mls/hr Multivitamins/Minerals 10 ml/Chromium/Copper/Manganese/Seleni/Zn 1 ml/ Dextrose/ Lactated Ringer's 1,011 mls @ 150 mls/hr IV DAILY@1600 [facility] Last Admin: 07/18/18 16:05 Dose: 150 mls/hr Cefoxitin Sodium 2 gm/ Sodium (Chloride) 50 mls @ 100 mls/hr IV Q6H [facility] Stop: 07/17/18 22:29 Last Admin: 07/17/18 22:50 Dose: 100 mls/hr Ferric Sodium Gluconate Complex 250 mg/ Sodium Chloride 120 mls @ 60 mls/hr IV Q24H [facility] Stop: 07/17/18 19:59 Last Admin: 07/17/18 18:00 Dose: 60 mls/hr Lactated Ringer's (Ringers, Lactated) 500 mls @ 999 mls/hr IV ASDIRECTED [facility] Stop: 07/16/18 15:31 Last Admin: 07/16/18 15:15 Dose: 999 mls/hr Lactated Ringer's (Ringers, Lactated) 500 mls @ 999 mls/hr IV ASDIRECTED [facility] Stop: 07/16/18 17:31 Last Admin: 07/16/18 17:00 Dose: 999 mls/hr Magnesium Sulfate 2 gm/ Premix 50 mls @ 25 mls/hr IV Q6H [facility] Stop: 07/19/18 05:59 Last Admin: 07/19/18 04:02 Dose: 25 mls/hr Dextrose/Lactated Ringer's (Dextrose 5%-Lactated Ringers) 1,000 mls @ 100 mls/ hr IV ASDIRECTED [facility] Last Admin: 07/18/18 22:44 Dose: 100 mls/hr Albumin Human (Albumin 25%) 25 gm in 100 mls @ 25 mls/hr IV ONETIME ONE Stop: 07/19/18 23:59 Last Admin: 07/19/18 20:42 Dose: 25 mls/hr Albumin Human (Albumin 25%) 25 gm in 100 mls @ 25 mls/hr IV ONETIME ONE Stop: 07/20/18 04:00 Last Admin: 07/20/18 01:21 Dose: 25 mls/hr Sodium Chloride (Normal Saline) 1,000 mls @ 80 mls/hr IV ASDIRECTED [facility] Last Admin: 07/20/18 05:42 Dose: 80 mls/hr Albumin Human (Albumin 25%) 25 gm in 100 mls @ 25 mls/hr IV DAILY [facility] Stop: 07/22/18 12:59 Last Admin: 07/22/18 09:02 Dose: 25 mls/hr Albumin Human (Albumin 25%) 25 gm in 100 mls @ 25 mls/hr IV Q24H [facility] Stop: 07/22/18 16:59 Albumin Human (Albumin 25%) 25 gm in 100 mls @ 25 mls/hr IV Q24H [facility] Stop: 07/22/18 16:59 Last Admin: 07/22/18 14:00 Dose: 25 mls/hr Sodium Chloride (Normal Saline) 1,000 mls @ 500 mls/hr IV ASDIRECTED [facility] Stop: 07/20/18 21:46 Last Admin: 07/20/18 19:47 Dose: 500 mls/hr Sodium Chloride (Normal Saline) 1,000 mls @ 250 mls/hr IV ASDIRECTED [facility] Stop: 07/21/18 02:31 Last Admin: 07/20/18 22:49 Dose: 250 mls/hr Potassium Chloride 20 meq/ (Sodium Chloride) 110 mls @ 55 mls/hr IV Q2H [facility] Stop: 07/21/18 14:59 Potassium Chloride 20 meq/Lidocaine HCl 2 ml/ Sodium Chloride 112 mls @ 56 mls/ hr IV Q2H [facility] Stop: 07/21/18 14:59 Last Admin: 07/21/18 15:25 Dose: 56 mls/hr Acetaminophen 1,000 mg/ Premix 100 mls @ 400 mls/hr IV NOW ONE Stop: 07/21/18 09:14 Last Admin: 07/21/18 09:43 Dose: 400 mls/hr Potassium Chloride/Dextrose/Sod Cl (D5 1/2 Ns W/ 20 Meq/L Kcl) 1,000 mls @ 60 mls[facility] Multivitamins/Minerals 10 ml/Thiamine HCl 100 mg/ Chromium/Copper/Manganese/ Seleni/Zn 1 ml/ Potassium Chloride/Dextrose/Sod Cl 1,012 mls @ 60 mls/hr IV ONETIME ONE Stop: 07/23/18 06:51 Last Admin: 07/22/18 14:01 Dose: Not Given Magnesium Sulfate 2 gm/ Premix 50 mls @ 25 mls/hr IV Q6H [facility] Stop: 07/25/18 05:59 Last Admin: 07/25/18 04:25 Dose: 25 mls/hr Potassium Phosphate 22.5 mmole (/ Sodium Chloride) 257.5 mls @ 65 mls/hr IV Q4H [facility] Stop: 07/22/18 16:58 Last Admin: 07/22/18 13:59 Dose: 65 mls/hr Ampicillin Sodium/Sulbactam (Sodium 1.5 gm/ Sodium Chloride) 50 mls @ 100 mls/ hr IV Q6H [facility] Last Admin: 07/24/18 04:10 Dose: 100 mls/hr Lactated Ringer's (Ringers, Lactated) 1,000 mls @ 500 mls/hr IV ASDIRECTED [facility] Last Admin: 07/22/18 16:00 Dose: 500 mls/hr Lactated Ringer's (Ringers, Lactated) 1,000 mls @ 250 mls/hr IV [facility] Stop: 07/22/18 22:59 Last Admin: 07/22/18 19:33 Dose: 250 mls/hr Lactated Ringer's (Ringers, Lactated) 1,000 mls @ 125 mls/hr [facility] Last Admin: 07/22/18 23:01 Dose: 125 mls/hr Lactated Ringer's (Ringers, Lactated) 1,000 mls @ 500 mls/hr IV ONETIME ONE Stop: 07/23/18 22:18 Last Admin: 07/23/18 20:35 Dose: 500 mls/hr Potassium Phosphate 22.5 mmole (/ Sodium Chloride) 257.5 mls @ 65 mls/hr IV Q4H [facility] Stop: 07/24/18 17:28 Last Admin: 07/24/18 14:23 Dose: 65 mls/hr Lactated Ringer's (Ringers, Lactated) 1,000 mls @ 500 mls/hr IV ASDIRECTED [facility] Stop: 07/24/18 19:14 Last Admin: 07/24/18 17:33 Dose: 500 mls/hr Lactated Ringer's (Ringers, Lactated) 1,000 mls @ 250 mls/hr IV ASDIRECTED [facility] Stop: 07/24/18 21:14 Lactated Ringer's (Ringers, Lactated) 1,000 mls @ 250 mls/hr IV ONETIME ONE Stop: 07/25/18 00:59 Last Admin: 07/24/18 21:13 Dose: 250 mls/hr Ketamine HCl (Ketalar) 28 mg IV ASDIRECTED [facility] Lorazepam (Ativan) 0.5 mg IVPUSH Q4H PRN PRN Reason: Anxiety Last Admin: 07/21/18 16:05 Dose: 0.5 mg Naloxone HCl (Narcan) 0.1 mg IV ASDIRECTED PRN PRN Reason: decreased respiratory rate Neostigmine Methylsulfate (Neostigmine) Confirm Administered Dose 5 mg .ROUTE .STK-MED ONE Stop: 07/16/18 07:50 Ondansetron HCl (Zofran) Confirm Administered Dose 4 mg .ROUTE .STK-MED ONE Stop: 07/16/18 07:50 Pantoprazole Sodium (Protonix Iv) 40 mg IVPUSH Q24H [facility] Last Admin: 07/17/18 16:29 Dose: 40 mg Propofol (Diprivan 20 Ml) Confirm Administered Dose 200 mg .ROUTE .STK-MED ONE Stop: 07/16/18 07:50 Rocuronium [place] (Zemuron) Confirm Administered Dose 50 mg .ROUTE .STK-MED ONE Stop: 07/16/18 07:50 Scopolamine (Transderm-Scop) 1.5 mg TOP ONETIME ONE Stop: 07/16/18 06:16 Last Admin: 07/16/18 06:28 Dose: 1.5 mg Succinylcholine Chloride (Quelicin) Confirm Administered Dose 200 mg .ROUTE .STK -MED ONE Stop: 07/16/18 07:50 Tamsulosin HCl (Flomax) 0.4 mg PO ONETIME ONE Stop: 07/19/18 09:01 Last Admin: 07/19/18 08:16 Dose: 0.4 mg - Exam Quality Assessment: Supplemental Oxygen General: No Acute Distress, Lethargic. No: Alert, Cooperative HEENT: Pupils Equal Lungs: Clear to Auscultation, Normal Respiratory Effort Cardiovascular: Regular Rate, Regular Rhythm GI/Abdominal Exam: Soft, No Distention, Abnormal Bowel Sounds (hypoactive) Extremities: No Pedal Edema. No: Increased Warmth Skin: Warm, Dry Psy/Mental Status: No: Alert, Agitated - Problem List Review Problem List Initiated/Reviewed/Updated: Yes - My Orders Last 24 Hours: My Active Orders 07/25/18 09:30 Initiate/Renew Non-Violent Restraints (All Ages) Q24H - Plan Plan:: ASSESSMENT AND RECOMMENDATIONS HYPONATREMIA - resolved HYPOXIC AND HYPERCAPNIC RESPIRATORY COMPROMISE - secondary to sedation with hypoventilation, chest x-ray shows evidence of atelectasis and hypoventilation. No evidence of underlying infection or significant fluid in the lungs. -Continue use of OXIMETRY and capnography to monitor respiratory status -Noninvasive positive pressure ventilation as needed -Supplement oxygen when not using NIPPV DIARRHEA - likely secondary to motility agents and recent antibiotic therapy, C. difficile found to be negative. She is on multiple medications to stimulate the bowels at this time. -Change in bowel stem meds to as needed -Probiotic therapy twice daily ACUTE KIDNEY INJURY - resolved. -Saline lock IV MILD HYPOTHYROIDISM - TSH mildly elevated and free T4 mildly decreased. -start low dose levothyroxine when able to take pills (50 mcg) -recheck levels in 4-6 weeks POSTOPERATIVE ILEUS - no vomiting. She is having diarrhea. -NG-tube removed -Management per Dr. Gonsalez ALCOHOL WITHDRAWAL - ongoing agitation and delirium. -Alcohol withdrawal protocol -Haldol as needed in addition to lorazepam STATUS POST TOTAL ABDOMINAL HYSTERECTOMY AND BSO - ileus appears improved and Dr. Gonsalez is ordered the NG tube removed -Postoperative care per Dr. Wallace Correia MD
[2018-07-25] MEDS ORDERED: Bisacodyl 5 MG Tab PO PRN (10:24)
[2018-07-25] MEDS ORDERED: Docusate Sodium 100 MG Cap PO PRN (10:25)
[2018-07-25] MEDS: Potassium Phosphates 22.5 MMOLE in Sodium Chloride 0.9% 250 ML IV SCH ×2 (10:39→16:36)
[2018-07-25] MEDS: Lactobacillus Rhamnosus GG (Probiotic) Cap PO SCH ×2 (10:43→20:45)
[2018-07-25] MEDS: Gabapentin 300 MG Cap PO SCH ×3 (10:43→20:44)
[2018-07-25] MEDS: Docusate Sodium 100 MG Cap PO SCH (10:46)
[2018-07-25] MEDS: Bisacodyl 5 MG Tab PO SCH (10:47)
--- NOTE | 2018-07-25 11:26 | PN ---
DATE OF SERVICE: 07/24/2018 The patient has been afebrile with stable vital signs and is requiring some BiPAP usage due to some CO2 retention. The blood gases on BiPAP last evening were satisfactory and CO2 monitor but pCO2 appears to be in the range of 35, which should be satisfactory. Oxygenation remains fairly good. She remains still quite densely in withdrawal with mental status not significantly changed from yesterday. The patient is stooling quite a bit. Clostridium difficile enterotoxin was checked, which was negative, and she has rectal tube in place and we will probably get that out today. Otherwise, continue with supportive care. Labs showed hemoglobin of 8.9. We will give her 1 unit of packed RBCs today, and potassium and phosphate are marginally low, we will give her some 45 mmol of potassium phosphate today. Otherwise, continue supportive care with the assistance of Dr. Parham. Errol Gonsalez MD /[id number]
--- NOTE | 2018-07-25 12:26 | PN ---
DATE OF SERVICE: 07/25/2018 The patient has been afebrile with stable vital signs. Pulmonary status appears to be little bit better. She did have very lucid mental status during the night, but in general obviously in significant withdrawal. She has a small opening wound on the right lower abdomen, we will address that with 4x4s. Otherwise, continue management with assistance of Dr. Correia. Of note, her potassium is mildly low. We will give her some K-Phos today. TSH is somewhat up in the 6 range, and we will ask Dr. Parham to address that issue as well. Errol Gonsalez MD /[id number]
[2018-07-25] MEDS ORDERED: Haloperidol Lactate 5 MG/ML SDV IM ONE (12:46)
--- NOTE | 2018-07-25 15:51 | CR ---
CHEST: Portable CLINICAL HISTORY:PICC line placement COMPARISON: 07/23/2018 FINDINGS: There is a line from the left upper extremity. The tip is in the inferior vena cava atrial junction region. There is no evidence of pneumothorax. Impression: PICC line is through the inferior right atrium into the superior vena cava. This should be withdrawn to the upper atrium superior vena caval junction. CHEST: Portable CLINICAL HISTORY:Repositioning of PICC line COMPARISON:Earlier study FINDINGS: The PICC line is now in the mid right atrium. No evidence of pneumothorax. The patient was in expiration exaggerating the lung markings. No pneumothorax is seen Impression: Tip of PICC line is now in the mid right atrium.
[2018-07-25] MEDS: Haloperidol Lactate 5 MG/ML SDV IVPUSH PRN ×2 (16:16→21:19)
[2018-07-25] MEDS: D5 1/2 NS w/ 20 mEq/L KCl 1,000 ML IV SCH (16:37)
[2018-07-25] MEDS: Pantoprazole 40 MG Tab.CR PO SCH (16:41)
[2018-07-25] MEDS: MVI, Adult with Vitamin K 10 ML, Thiamine 100 MG, Chromium/Copper/Mang/Selen/Zn 1 ML in... IV SCH ×4 (16:41)
[2018-07-25] MEDS ORDERED: Loperamide 2 MG Cap PO ONE (17:47)
[2018-07-25] MEDS ORDERED: Loperamide 2 MG Cap PO PRN (17:47)
[2018-07-25] MEDS: Tamsulosin 0.4 MG Cap.ER PO SCH (20:44)
[2018-07-26] MEDS: LORazepam 2 MG/ML SDV IV SCH (01:29)
[2018-07-26] MEDS: HYDROmorphone 0.5 MG/0.5 ML Syringe IVPUSH PRN ×2 (02:21→14:43)
[2018-07-26] MEDS: Albuterol/Ipratropium 3.0-0.5 MG/3 ML Neb Soln INH SCH ×4 (07:03→21:20)
[2018-07-26] MEDS: Gabapentin 300 MG Cap PO SCH ×3 (09:01→21:19)
[2018-07-26] MEDS: Lactobacillus Rhamnosus GG (Probiotic) Cap PO SCH ×2 (09:02→21:19)
[2018-07-26] MEDS: Acetaminophen/oxyCODONE 325-5 MG Tab PO PRN ×2 (12:12→19:51)
--- NOTE | 2018-07-26 13:40 | PCM.PN ---
- General Info Date of Service: 07/26/18 Subjective Update: There were no acute events overnight. Patient remains lethargic today but is a little bit more interactive. She did answer a few questions this morning. She does not report pain. She knows that she is in the hospital in [place] and that it's 2019 but she did not recall why she was admitted to the hospital. She does not have a tremor today. Vital signs have been stable other than mild tachycardia. She has not had any fevers. Still requiring medications to treat alcohol withdrawal though they have been slowly decreasing. Able to take in some liquids and pudding though in very small quantities. Functional Status: Reports: Pain Controlled, Tolerating Diet - Patient Data Vitals - Most Recent: Last Vital Signs Temp 37.2 C 07/26/18 10:00 Pulse 100 07/26/18 10:54 Resp 25 H 07/26/18 12:00 BP 103/51 L 07/26/18 12:00 Pulse Ox 94 L 07/26/18 10:00 Orthostatic Blood Pressure [ 130/74 Supine] Orthostatic Blood Pressure [ 125/83 Standing] Orthostatic Blood Pressure [ 136/87 Sitting] Weight - Most Recent: 91.172 kg I&O - Last 24 Hours: Intake & Output 07/25/18 07/26/18 07/26/18 22:59 06:59 14:59 Intake Total 673 Output Total 600 400 375 Balance -600 273 -375 Lab Results Last 24 Hours: Laboratory Results - last 24 hr 07/26/18 07/26/18 Range/Units 04:30 04:30 WBC 4.0 L (4.5-11.0) K/uL RBC 3.20 L (3.30-5.50) M/uL Hgb 9.6 L (12.0-15.0) g/dL Hct 31.1 L (36.0-48.0) % MCV 97 (80-98) fL MCH 30 (27-31) pg MCHC 31 L (32-36) % Plt Count 273 (150-400) K/uL Sodium 142 (140-148) mmol/L Potassium 3.8 (3.6-5.2) mmol/L Chloride 110 H (100-108) mmol/L Carbon Dioxide 28 (21-32) mmol/L Anion Gap 7.8 (5.0-14.0) mmol/L BUN 2 L (7-18) mg/dL Creatinine 0.5 L (0.6-1.0) mg/dL Est Cr Clr Drug Dosing 127.65 mL/min Estimated GFR (MDRD) > 60 (>60) Glucose 74 (74-106) mg/dL Calcium 8.2 L (8.5-10.1) mg/dL Phosphorus 3.9 (2.5-4.9) mg/dL Magnesium 1.9 (1.8-2.4) mg/dL Total Bilirubin 1.1 H (0.2-1.0) mg/dL AST 21 (15-37) U/L ALT 13 (12-78) U/L Alkaline Phosphatase 115 (46-116) U/L Total Protein 4.2 L (6.4-8.2) g/dL Albumin 1.6 L (3.4-5.0) g/dL Globulin 2.6 (2.3-3.5) g/dL Albumin/Globulin Ratio 0.6 L (1.2-2.2) Abdirashid Results Last 24 Hours: Microbiology 07/22/18 15:35 Aerobic Blood Culture - Preliminary Blood - Arm, Left NO GROWTH AFTER 3 DAYS Anaerobic Blood Culture - Preliminary NO GROWTH AFTER 3 DAYS 07/22/18 15:40 Aerobic Blood Culture - Preliminary Blood - Arm, Left NO GROWTH AFTER 3 DAYS Anaerobic Blood Culture - Preliminary NO GROWTH AFTER 3 DAYS Med Orders - Current: Current Medications Acetaminophen (Tylenol) 650 mg RECTAL Q4H PRN PRN Reason: Fever Last Admin: 07/24/18 14:27 Dose: 650 mg Albuterol/Ipratropium (Duoneb 3.0-0.5 Mg/3 Ml) 3 ml INH QIDRT [facility] Last Admin: 07/26/18 10:54 Dose: 3 ml Albuterol/Ipratropium (Duoneb 3.0-0.5 Mg/3 Ml) 3 ml INH ASDIRECTED PRN PRN Reason: BREATHING Bisacodyl (Dulcolax) 10 mg PO BID PRN PRN Reason: Constipation Docusate Sodium (Colace) 100 mg PO BID PRN PRN Reason: Constipation Folic Acid (Folic Acid) 1 mg PO DAILY [facility] Gabapentin (Neurontin) 300 mg PO TID [facility] Last Admin: 07/26/18 09:01 Dose: 300 mg Haloperidol Lactate (Haldol) 2 - 4 mg IVPUSH Q2H PRN PRN Reason: Agitation Last Admin: 07/25/18 21:19 Dose: 4 mg Hydromorphone HCl (Dilaudid) 0.5 mg IVPUSH Q2H PRN PRN Reason: pain Last Admin: 07/26/18 02:21 Dose: 0.5 mg Potassium Chloride/Dextrose/Sod Cl (D5 1/2 Ns W/ 20 Meq/L Kcl) 1,000 mls @ 60 mls/hr IV ASDIRECTED [facility] Last Admin: 07/25/18 16:37 Dose: 60 mls/hr Multivitamins/Minerals 10 ml/Thiamine HCl 100 mg/ Chromium/Copper/Manganese/ Seleni/Zn 1 ml/ Potassium Chloride/Dextrose/Sod Cl 1,012 mls @ 60 mls/hr IV DAILY@1600 [facility] Last Admin: 07/25/18 16:41 Dose: 60 mls/hr Lactated Ringer's (Ringers, Lactated) 1,000 mls @ 60 mls/hr IV ASDIRECTED [facility] Last Admin: 07/23/18 22:37 Dose: 60 mls/hr Lactobacillus Rhamnosus (Culturelle) 1 cap PO BID [facility] Last Admin: 07/26/18 09:02 Dose: 1 cap Loperamide HCl (Imodium) 2 mg PO Q4H PRN PRN Reason: Diarrhea Lorazepam (Ativan) 0 mg IV ASDIRECTED [facility]; Protocol Last Admin: 07/26/18 01:29 Dose: 2 mg Lorazepam (Ativan) 0 mg PO ASDIRECTED [facility]; Protocol Ondansetron HCl (Zofran) 4 mg IVPUSH Q4H PRN PRN Reason: Nausea/Vomiting Last Admin: 07/21/18 06:46 Dose: 4 mg Ondansetron HCl (Zofran Odt) 4 mg PO Q4H PRN PRN Reason: Nausea/Vomiting Last Admin: 07/20/18 04:05 Dose: 4 mg Oxycodone/Acetaminophen (Percocet 325-5 Mg) 1 - 2 tab PO Q4H PRN PRN Reason: paiin Last Admin: 07/26/18 12:12 Dose: 1 tab Pantoprazole Sodium (Protonix) 40 mg PO Q24H [facility] Last Admin: 07/25/18 16:41 Dose: 40 mg Sodium Chloride (Saline Flush) 10 ml IV ASDIRECTED PRN 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 Tamsulosin HCl (Flomax) 0.4 mg PO BEDTIME [facility] Last Admin: 07/25/18 20:44 Dose: 0.4 mg Thiamine HCl (Vitamin B-1) 100 mg IM DAILY [facility] Discontinued Medications Acetaminophen (Tylenol Extra Strength) 1,000 mg PO ONETIME ONE Stop: 07/16/18 06:16 Last Admin: 07/16/18 06:28 Dose: 1,000 mg Albuterol/Ipratropium (Duoneb 3.0-0.5 Mg/3 Ml) 3 ml NEB ONETIME ONE Stop: 07/16/18 07:01 Last Admin: 07/16/18 06:28 Dose: 3 ml Bisacodyl (Dulcolax) 10 mg PO BID [facility] Last Admin: 07/25/18 10:47 Dose: Not Given Bisacodyl (Dulcolax) 10 mg RECTAL BID [facility] Last Admin: 07/21/18 11:54 Dose: 10 mg Bisacodyl (Dulcolax) 10 mg RECTAL ONETIME PRN PRN Reason: IF NO RESULT FROM AM DOSE Stop: 07/21/18 19:00 Bumetanide (Bumex) 4 mg IVPUSH ONETIME ONE Stop: 07/20/18 15:46 Last Admin: 07/20/18 15:52 Dose: 4 mg Bumetanide (Bumex) 2 mg IVPUSH NOW ONE Stop: 07/21/18 08:01 Last Admin: 07/21/18 08:20 Dose: 2 mg Bumetanide (Bumex) 2 mg IVPUSH ONETIME ONE Stop: 07/22/18 10:16 Last Admin: 07/22/18 10:53 Dose: 2 mg Bumetanide (Bumex) 2 mg IVPUSH ONETIME ONE Stop: 07/23/18 08:21 Last Admin: 07/23/18 08:36 Dose: 2 mg Cefoxitin Sodium (Mefoxin) Confirm Administered Dose 2 gm .ROUTE .STK-MED ONE Stop: 07/16/18 07:02 Last Admin: 07/16/18 08:41 Dose: 2 gm Ropivacaine 45 ml/Dexamethasone 8 mg/Epinephrine HCl 0.4 mg/ Sodium Chloride 32.6 ml 0 ml NERVRT ASDIRECTED [facility] Last Admin: 07/16/18 08:58 Dose: 80 syringe Cyanocobalamin (Vitamin B12) 1,000 mcg IM ONETIME ONE Stop: 07/16/18 16:01 Last Admin: 07/16/18 17:53 Dose: 1,000 mcg Dexamethasone (Dexamethasone) Confirm Administered Dose 4 mg .ROUTE .STK-MED ONE Stop: 07/16/18 07:50 Docusate Sodium (Colace) 100 mg PO BID [facility] Last Admin: 07/25/18 10:46 Dose: Not Given Fentanyl (Sublimaze) Confirm Administered Dose 100 mcg .ROUTE .STK-MED ONE Stop: 07/16/18 10:18 Fentanyl (Sublimaze) 100 mcg IVPUSH ONETIME ONE Stop: 07/16/18 11:20 Last Admin: 07/16/18 11:25 Dose: 100 mcg Fentanyl Citrate (Fentanyl) Confirm Administered Dose 500 mcg .ROUTE .ST-MED ONE Stop: 07/16/18 07:51 Furosemide (Lasix) 20 mg IVPUSH ONETIME ONE Stop: 07/18/18 17:56 Last Admin: 07/18/18 18:28 Dose: Not Given Furosemide (Lasix) 10 mg IVPUSH ONETIME ONE Stop: 07/18/18 17:57 Last Admin: 07/18/18 18:28 Dose: 10 mg Furosemide (Lasix) 10 mg IVPUSH ONETIME ONE Stop: 07/19/18 08:01 Last Admin: 07/19/18 08:17 Dose: 10 mg Furosemide (Lasix) 40 mg IVPUSH ONETIME STA Stop: 07/20/18 08:55 Last Admin: 07/20/18 08:59 Dose: 40 mg Gabapentin (Neurontin) 300 mg PO ONETIME ONE Stop: 07/16/18 06:16 Last Admin: 07/16/18 06:28 Dose: 300 mg Glycopyrrolate (Robinul) Confirm Administered Dose 1 mg .ROUTE .STK-MED ONE Stop: 07/16/18 07:50 Haloperidol Lactate (Haldol) 4 mg IM ONETIME ONE Stop: 07/25/18 12:47 Last Admin: 07/25/18 13:04 Dose: 4 mg Hydromorphone HCl (Dilaudid Mailing Machine Operator 15 Mg In Ns 30 Ml) 0 mg IV ASDIRECTED PRN; Protocol 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 Last Admin: 07/18/18 00:33 Dose: 15 mg Hydroxyzine HCl (Vistaril) 100 mg IM ONETIME ONE Stop: 07/16/18 11:14 Last Admin: 07/16/18 11:18 Dose: 100 mg Hydroxyzine HCl (Vistaril) 100 mg IM Q4H PRN PRN Reason: pain Last Admin: 07/20/18 16:29 Dose: 100 mg Cefoxitin Sodium 2 gm/ Sodium (Chloride) 50 mls @ 100 mls/hr IV ONETIME ONE Stop: 07/16/18 08:29 Last Admin: 07/16/18 07:57 Dose: 100 mls/hr Dextrose/Lactated Ringer's (Dextrose 5%-Lactated Ringers) 1,000 mls @ 100 mls/ hr IV ASDIRECTED [facility] Last Admin: 07/16/18 06:29 Dose: 100 mls/hr Ketamine HCl 50 mg/ Sodium (Chloride) 50 mls @ 17 mls/hr IV ASDIRECTED [facility] Lactated Ringer's (Ringers, Lactated) Confirm Administered Dose 1,000 mls @ as directed .ROUTE .STK-MED ONE Stop: 07/16/18 10:32 Dextrose/Lactated Ringer's (Dextrose 5%-Lactated Ringers) 1,000 mls @ 150 mls/ hr IV ASDIRECTED [facility] Last Admin: 07/17/18 01:03 Dose: 150 mls/hr Multivitamins/Minerals 10 ml/Chromium/Copper/Manganese/Seleni/Zn 1 ml/ Dextrose/ Lactated Ringer's 1,011 mls @ 150 mls/hr IV DAILY@1600 [facility] Last Admin: 07/18/18 16:05 Dose: 150 mls/hr Cefoxitin Sodium 2 gm/ Sodium (Chloride) 50 mls @ 100 mls/hr IV Q6H [facility] Stop: 07/17/18 22:29 Last Admin: 07/17/18 22:50 Dose: 100 mls/hr Ferric Sodium Gluconate Complex 250 mg/ Sodium Chloride 120 mls @ 60 mls/hr IV Q24H [facility] Stop: 07/17/18 19:59 Last Admin: 07/17/18 18:00 Dose: 60 mls/hr Lactated Ringer's (Ringers, Lactated) 500 mls @ 999 mls/hr IV ASDIRECTED [facility] Stop: 07/16/18 15:31 Last Admin: 07/16/18 15:15 Dose: 999 mls/hr Lactated Ringer's (Ringers, Lactated) 500 mls @ 999 mls/hr IV ASDIRECTED [facility] Stop: 07/16/18 17:31 Last Admin: 07/16/18 17:00 Dose: 999 mls/hr Magnesium Sulfate 2 gm/ Premix 50 mls @ 25 mls/hr IV Q6H [facility] Stop: 07/19/18 05:59 Last Admin: 07/19/18 04:02 Dose: 25 mls/hr Dextrose/Lactated Ringer's (Dextrose 5%-Lactated Ringers) 1,000 mls @ 100 mls/ hr IV ASDIRECTED [facility] Last Admin: 07/18/18 22:44 Dose: 100 mls/hr Albumin Human (Albumin 25%) 25 gm in 100 mls @ 25 mls/hr IV ONETIME ONE Stop: 07/19/18 23:59 Last Admin: 07/19/18 20:42 Dose: 25 mls/hr Albumin Human (Albumin 25%) 25 gm in 100 mls @ 25 mls/hr IV ONETIME ONE Stop: 07/20/18 04:00 Last Admin: 07/20/18 01:21 Dose: 25 mls/hr Sodium Chloride (Normal Saline) 1,000 mls @ 80 mls/hr IV ASDIRECTED [facility] Last Admin: 07/20/18 05:42 Dose: 80 mls/hr Albumin Human (Albumin 25%) 25 gm in 100 mls @ 25 mls/hr IV DAILY [facility] Stop: 07/22/18 12:59 Last Admin: 07/22/18 09:02 Dose: 25 mls/hr Albumin Human (Albumin 25%) 25 gm in 100 mls @ 25 mls/hr IV Q24H [facility] Stop: 07/22/18 16:59 Albumin Human (Albumin 25%) 25 gm in 100 mls @ 25 mls/hr IV Q24H [facility] Stop: 07/22/18 16:59 Last Admin: 07/22/18 14:00 Dose: 25 mls/hr Sodium Chloride (Normal Saline) 1,000 mls @ 500 mls/hr IV ASDIRECTED [facility] Stop: 07/20/18 21:46 Last Admin: 07/20/18 19:47 Dose: 500 mls/hr Sodium Chloride (Normal Saline) 1,000 mls @ 250 mls/hr IV ASDIRECTED [facility] Stop: 07/21/18 02:31 Last Admin: 07/20/18 22:49 Dose: 250 mls/hr Potassium Chloride 20 meq/ (Sodium Chloride) 110 mls @ 55 mls/hr IV Q2H [facility] Stop: 07/21/18 14:59 Potassium Chloride 20 meq/Lidocaine HCl 2 ml/ Sodium Chloride 112 mls @ 56 mls/ hr IV Q2H [facility] Stop: 07/21/18 14:59 Last Admin: 07/21/18 15:25 Dose: 56 mls/hr Acetaminophen 1,000 mg/ Premix 100 mls @ 400 mls/hr IV NOW ONE Stop: 07/21/18 09:14 Last Admin: 07/21/18 09:43 Dose: 400 mls/hr Potassium Chloride/Dextrose/Sod Cl (D5 1/2 Ns W/ 20 Meq/L Kcl) 1,000 mls @ 60 mls/hr IV ASDIRECTED [facility] Multivitamins/Minerals 10 ml/Thiamine HCl 100 mg/ Chromium/Copper/Manganese/ Seleni/Zn 1 ml/ Potassium Chloride/Dextrose/Sod Cl 1,012 mls @ 60 mls/hr IV ONETIME ONE Stop: 07/23/18 06:51 Last Admin: 07/22/18 14:01 Dose: Not Given Magnesium Sulfate 2 gm/ Premix 50 mls @ 25 mls/hr IV Q6H [facility] Stop: 07/25/18 05:59 Last Admin: 07/25/18 04:25 Dose: 25 mls/hr Potassium Phosphate 22.5 mmole (/ Sodium Chloride) 257.5 mls @ 65 mls/hr IV Q4H [facility] Stop: 07/22/18 16:58 Last Admin: 07/22/18 13:59 Dose: 65 mls/hr Ampicillin Sodium/Sulbactam (Sodium 1.5 gm/ Sodium Chloride) 50 mls @ 100 mls/ hr IV Q6H [facility] Last Admin: 07/24/18 04:10 Dose: 100 mls/hr Lactated Ringer's (Ringers, Lactated) 1,000 mls @ 500 mls/hr IV ASDIRECTED [facility] Last Admin: 07/22/18 16:00 Dose: 500 mls/hr Lactated Ringer's (Ringers, Lactated) 1,000 mls @ 250 mls/hr IV ASDIRECTED [facility] Stop: 07/22/18 22:59 Last Admin: 07/22/18 19:33 Dose: 250 mls/hr Lactated Ringer's (Ringers, Lactated) 1,000 mls @ 125 mls/hr IV ASDIRECTED [facility] Last Admin: 07/22/18 23:01 Dose: 125 mls/hr Lactated Ringer's (Ringers, Lactated) 1,000 mls @ 500 mls/hr IV ONETIME ONE Stop: 07/23/18 22:18 Last Admin: 07/23/18 20:35 Dose: 500 mls/hr Potassium Phosphate 22.5 mmole (/ Sodium Chloride) 257.5 mls @ 65 mls/hr IV Q4H [facility] Stop: 07/24/18 17:28 Last Admin: 07/24/18 14:23 Dose: 65 mls/hr Lactated Ringer's (Ringers, Lactated) 1,000 mls @ 500 mls/hr IV ASDIRECTED [facility] Stop: 07/24/18 19:14 Last Admin: 07/24/18 17:33 Dose: 500 mls/hr Lactated Ringer's (Ringers, Lactated) 1,000 mls @ 250 mls/hr IV ASDIRECTED [facility] Stop: 07/24/18 21:14 Lactated Ringer's (Ringers, Lactated) 1,000 mls @ 250 mls/hr IV ONETIME ONE Stop: 07/25/18 00:59 Last Admin: 07/24/18 21:13 Dose: 250 mls/hr Potassium Phosphate 22.5 mmole (/ Sodium Chloride) 257.5 mls @ 86 mls/hr IV Q3H [facility] Stop: 07/25/18 15:59 Last Admin: 07/25/18 16:36 Dose: 86 mls/hr Ketamine HCl (Ketalar) 28 mg IV ASDIRECTED [facility] Loperamide HCl (Imodium) 2 mg PO Q4H PRN PRN Reason: Diarrhea Loperamide HCl (Imodium) 4 mg PO ONETIME ONE Stop: 07/25/18 17:48 Last Admin: 07/25/18 18:13 Dose: 4 mg Lorazepam (Ativan) 0.5 mg IVPUSH Q4H PRN PRN Reason: Anxiety Last Admin: 07/21/18 16:05 Dose: 0.5 mg Metoclopramide HCl (Reglan) 10 mg IVPUSH Q6H [facility] Last Admin: 07/25/18 10:47 Dose: Not Given Naloxone HCl (Narcan) 0.1 mg IV ASDIRECTED PRN PRN Reason: decreased respiratory rate Neostigmine Methylsulfate (Neostigmine) Confirm Administered Dose 5 mg .ROUTE .STK-MED ONE Stop: 07/16/18 07:50 Ondansetron HCl (Zofran) Confirm Administered Dose 4 mg .ROUTE .STK-MED ONE Stop: 07/16/18 07:50 Pantoprazole Sodium (Protonix Iv) 40 mg IVPUSH Q24H [facility] Last Admin: 07/17/18 16:29 Dose: 40 mg Propofol (Diprivan 20 Ml) Confirm Administered Dose 200 mg .ROUTE .STK-MED ONE Stop: 07/16/18 07:50 Rocuronium [place] (Zemuron) Confirm Administered Dose 50 mg .ROUTE .STK-MED ONE Stop: 07/16/18 07:50 Scopolamine (Transderm-Scop) 1.5 mg TOP ONETIME ONE Stop: 07/16/18 06:16 Last Admin: 07/16/18 06:28 Dose: 1.5 mg Senna/Docusate Sodium (Senna Plus) 2 tab PO DAILY [facility] Last Admin: 07/25/18 10:47 Dose: Not Given Succinylcholine Chloride (Quelicin) Confirm Administered Dose 200 mg .ROUTE .STK -MED ONE Stop: 07/16/18 07:50 Tamsulosin HCl (Flomax) 0.4 mg PO ONETIME ONE Stop: 07/19/18 09:01 Last Admin: 07/19/18 08:16 Dose: 0.4 mg - Exam Quality Assessment: Supplemental Oxygen General: Alert, Oriented, Cooperative, Lethargic HEENT: Pupils Equal Lungs: Clear to Auscultation, Normal Respiratory Effort Cardiovascular: Regular Rhythm, Tachycardia GI/Abdominal Exam: Soft, No Distention Extremities: No Pedal Edema. No: Increased Warmth Skin: Warm, Dry Psy/Mental Status: Alert, Normal Affect - Problem List Review Problem List Initiated/Reviewed/Updated: Yes - My Orders Last 24 Hours: My Active Orders 07/25/18 12:46 Central Line PICC Insertion [Central Venous Line Insertion] [OM.PC] Routine 07/25/18 17:47 Loperamide [Imodium] 2 mg PO Q4H PRN 07/26/18 10:45 LORazepam [Ativan] See Protocol PO ASDIRECTED 07/26/18 20:15 Insert [place] Catheter [Insert Urinary Catheter] [OM.PC] Q24H 07/27/18 09:00 Folic Acid 1 mg PO DAILY Thiamine [Vitamin B-1] 100 mg IM DAILY 07/27/18 09:30 Initiate/Renew Non-Violent Restraints (All Ages) Q24H - Assessment Assessment:: - - Plan Plan:: ASSESSMENT AND RECOMMENDATIONS HYPONATREMIA - resolved HYPOXIC AND HYPERCAPNIC RESPIRATORY COMPROMISE - secondary to sedation with hypoventilation, chest x-ray shows evidence of atelectasis and hypoventilation. No evidence of underlying infection or significant fluid in the lungs. Respiratory status has been stable and she has not required noninvasive ventilation. -Continue use of OXIMETRY and capnography to monitor respiratory status -Supplement oxygen when not using NIPPV DIARRHEA - likely secondary to motility agents and recent antibiotic therapy, C. difficile found to be negative. Less diarrhea since the promotility agents were stopped. -Change in bowel stim meds to as needed -Probiotic therapy twice daily ACUTE KIDNEY INJURY - resolved. -Saline lock IV MILD HYPOTHYROIDISM - TSH mildly elevated and free T4 mildly decreased. -start low dose levothyroxine tomorrow (50 mcg) now that she is able to take pills -recheck levels in 4-6 weeks POSTOPERATIVE ILEUS - no vomiting. Diarrhea is better today. -NG-tube removed -Management per Dr. Gonsalez ALCOHOL WITHDRAWAL - ongoing agitation and delirium but seems to be slowly coming out of alcohol withdrawal. -Alcohol withdrawal protocol -Haldol as needed in addition to lorazepam STATUS POST TOTAL ABDOMINAL HYSTERECTOMY AND BSO - ileus appears improved and Dr. Gonsalez is ordered the NG tube removed -Postoperative care per Dr. Wallace Correia MD
[2018-07-26] MEDS: LORazepam 1 MG Tab PO SCH ×2 (13:51→19:51)
--- NOTE | 2018-07-26 13:54 | PN ---
DATE OF SERVICE: 07/26/2018 The patient has been afebrile with stable vital signs. She is intermittently a little bit coherent at this point and certainly is becoming less tense in terms of the alcohol withdrawal. The patient was taking some pudding and pills today, and I think we will cautiously start a full liquid diet today. We need to get some high protein Boost or Ensure on board. Otherwise, continue supportive care. Errol Gonsalez MD /[id number]
[2018-07-26] MEDS: MVI, Adult with Vitamin K 10 ML, Thiamine 100 MG, Chromium/Copper/Mang/Selen/Zn 1 ML in... IV SCH ×4 (15:29)
[2018-07-26] MEDS: Pantoprazole 40 MG Tab.CR PO SCH (17:39)
[2018-07-26] MEDS: Tamsulosin 0.4 MG Cap.ER PO SCH (21:20)
[2018-07-27] MEDS: Acetaminophen/oxyCODONE 325-5 MG Tab PO PRN (01:29)
[2018-07-27] MEDS: LORazepam 1 MG Tab PO SCH ×3 (02:00→19:32)
[2018-07-27] MEDS: Albuterol/Ipratropium 3.0-0.5 MG/3 ML Neb Soln INH SCH ×4 (07:14→20:43)
[2018-07-27] MEDS: HYDROmorphone 0.5 MG/0.5 ML Syringe IVPUSH PRN ×3 (07:25→21:46)
[2018-07-27] MEDS: D5 1/2 NS w/ 20 mEq/L KCl 1,000 ML IV SCH (07:45)
--- NOTE | 2018-07-27 09:10 | PCM.PN ---
- General Info Date of Service: 07/27/18 Subjective Update: No acute events overnight. No fevers. She did not require noninvasive ventilation. Still fairly lethargic and answered a couple of questions before falling back asleep. She did not endorse any pain. No complaints of nausea. Intake has been minimal. Agitation seems to be decreasing but has not completely resolved. Still requiring soft restraints most of the time to avoid pulling her IV or her Buchanan catheter. Not needing supplemental oxygen at this time. Functional Status: Reports: Pain Controlled - Review of Systems General: Reports: Weakness Psychiatric: Reports: Confusion - Patient Data Vitals - Most Recent: Last Vital Signs Temp 36.6 C 07/27/18 04:00 Pulse 96 07/27/18 07:33 Resp 13 07/27/18 07:33 BP 133/81 07/27/18 07:33 Pulse Ox 92 L 07/27/18 07:33 Orthostatic Blood Pressure [ 130/74 Supine] Orthostatic Blood Pressure [ 125/83 Standing] Orthostatic Blood Pressure [ 136/87 Sitting] Weight - Most Recent: 91.172 kg I&O - Last 24 Hours: Intake & Output 07/26/18 07/27/18 07/27/18 22:59 06:59 14:59 Intake Total 708 758 Output Total 300 400 Balance 408 358 Lab Results Last 24 Hours: Laboratory Results - last 24 hr 07/27/18 07/27/18 Range/Units 04:00 04:00 WBC 5.2 (4.5-11.0) K/uL RBC 3.33 (3.30-5.50) M/uL Hgb 10.0 L (12.0-15.0) g/dL Hct 32.9 L (36.0-48.0) % MCV 99 H (80-98) fL MCH 30 (27-31) pg MCHC 30 L (32-36) % Plt Count 249 (150-400) K/uL Sodium 142 (140-148) mmol/L Potassium 4.1 (3.6-5.2) mmol/L Chloride 110 H (100-108) mmol/L Carbon Dioxide 28 (21-32) mmol/L Anion Gap 8.1 (5.0-14.0) mmol/L BUN 2 L (7-18) mg/dL Creatinine 0.5 L (0.6-1.0) mg/dL Est Cr Clr Drug Dosing 127.65 mL/min Estimated GFR (MDRD) > 60 (>60) Glucose 82 (74-106) mg/dL Calcium 8.3 L (8.5-10.1) mg/dL Phosphorus 3.6 (2.5-4.9) mg/dL Magnesium 1.6 L (1.8-2.4) mg/dL Total Bilirubin 1.0 (0.2-1.0) mg/dL AST 22 (15-37) U/L ALT 13 (12-78) U/L Alkaline Phosphatase 114 (46-116) U/L Total Protein 4.4 L (6.4-8.2) g/dL Albumin 1.7 L (3.4-5.0) g/dL Globulin 2.7 (2.3-3.5) g/dL Albumin/Globulin Ratio 0.6 L (1.2-2.2) Abdirashid Results Last 24 Hours: Microbiology 07/22/18 15:35 Aerobic Blood Culture - Preliminary Blood - Arm, Left NO GROWTH AFTER 4 DAYS Anaerobic Blood Culture - Preliminary NO GROWTH AFTER 4 DAYS 07/22/18 15:40 Aerobic Blood Culture - Preliminary Blood - Arm, Left NO GROWTH AFTER 4 DAYS Anaerobic Blood Culture - Preliminary NO GROWTH AFTER 4 DAYS Med Orders - Current: Current Medications Acetaminophen (Tylenol) 650 mg RECTAL Q4H PRN PRN Reason: Fever Last Admin: 07/24/18 14:27 Dose: 650 mg Albuterol/Ipratropium (Duoneb 3.0-0.5 Mg/3 Ml) 3 ml INH QIDRT [facility] Last Admin: 07/27/18 07:14 Dose: 3 ml Albuterol/Ipratropium (Duoneb 3.0-0.5 Mg/3 Ml) 3 ml INH ASDIRECTED PRN PRN Reason: BREATHING Bisacodyl (Dulcolax) 10 mg PO BID PRN PRN Reason: Constipation Docusate Sodium (Colace) 100 mg PO BID PRN PRN Reason: Constipation Folic Acid (Folic Acid) 1 mg PO DAILY [facility] Gabapentin (Neurontin) 300 mg PO TID [facility] Last Admin: 07/26/18 21:19 Dose: 300 mg Haloperidol Lactate (Haldol) 2 - 4 mg IVPUSH Q2H PRN PRN Reason: Agitation Last Admin: 07/25/18 21:19 Dose: 4 mg Hydromorphone HCl (Dilaudid) 0.5 mg IVPUSH Q2H PRN PRN Reason: pain Last Admin: 07/27/18 07:25 Dose: 0.5 mg Potassium Chloride/Dextrose/Sod Cl (D5 1/2 Ns W/ 20 Meq/L Kcl) 1,000 mls @ 60 mls/hr IV ASDIRECTED [facility] Last Admin: 07/27/18 07:45 Dose: 60 mls/hr Multivitamins/Minerals 10 ml/Thiamine HCl 100 mg/ Chromium/Copper/Manganese/ Seleni/Zn 1 ml/ Potassium Chloride/Dextrose/Sod Cl 1,012 mls @ 60 mls/hr IV DAILY@1600 [facility] Last Admin: 07/26/18 15:29 Dose: 60 mls/hr Lactated Ringer's (Ringers, Lactated) 1,000 mls @ 60 mls/hr IV ASDIRECTED [facility] Last Admin: 07/23/18 22:37 Dose: 60 mls/hr Lactobacillus Rhamnosus (Culturelle) 1 cap PO BID [facility] Last Admin: 07/26/18 21:19 Dose: 1 cap Levothyroxine Sodium (Synthroid) 50 mcg PO ACBREAKFAST [facility] Loperamide HCl (Imodium) 2 mg PO Q4H PRN PRN Reason: Diarrhea Lorazepam (Ativan) 0 mg IV ASDIRECTED [facility]; Protocol Last Admin: 07/26/18 01:29 Dose: 2 mg Lorazepam (Ativan) 0 mg PO ASDIRECTED [facility]; Protocol Last Admin: 07/27/18 05:39 Dose: 2 mg Ondansetron HCl (Zofran) 4 mg IVPUSH Q4H PRN PRN Reason: Nausea/Vomiting Last Admin: 07/21/18 06:46 Dose: 4 mg Ondansetron HCl (Zofran Odt) 4 mg PO Q4H PRN PRN Reason: Nausea/Vomiting Last Admin: 07/20/18 04:05 Dose: 4 mg Oxycodone/Acetaminophen (Percocet 325-5 Mg) 1 - 2 tab PO Q4H PRN PRN Reason: paiin Last Admin: 07/27/18 01:29 Dose: 1 tab Pantoprazole Sodium (Protonix) 40 mg PO Q24H [facility] Last Admin: 07/26/18 17:39 Dose: 40 mg Sodium Chloride (Saline Flush) 10 ml IV ASDIRECTED PRN 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 Tamsulosin HCl (Flomax) 0.4 mg PO BEDTIME [facility] Last Admin: 07/26/18 21:20 Dose: 0.4 mg Thiamine HCl (Vitamin B-1) 100 mg IM DAILY [facility] Discontinued Medications Acetaminophen (Tylenol Extra Strength) 1,000 mg PO ONETIME ONE Stop: 07/16/18 06:16 Last Admin: 07/16/18 06:28 Dose: 1,000 mg Albuterol/Ipratropium (Duoneb 3.0-0.5 Mg/3 Ml) 3 ml NEB ONETIME ONE Stop: 07/16/18 07:01 Last Admin: 07/16/18 06:28 Dose: 3 ml Bisacodyl (Dulcolax) 10 mg PO BID [facility] Last Admin: 07/25/18 10:47 Dose: Not Given Bisacodyl (Dulcolax) 10 mg RECTAL BID [facility] Last Admin: 07/21/18 11:54 Dose: 10 mg Bisacodyl (Dulcolax) 10 mg RECTAL ONETIME PRN PRN Reason: IF NO RESULT FROM AM DOSE Stop: 07/21/18 19:00 Bumetanide (Bumex) 4 mg IVPUSH ONETIME ONE Stop: 07/20/18 15:46 Last Admin: 07/20/18 15:52 Dose: 4 mg Bumetanide (Bumex) 2 mg IVPUSH NOW ONE Stop: 07/21/18 08:01 Last Admin: 07/21/18 08:20 Dose: 2 mg Bumetanide (Bumex) 2 mg IVPUSH ONETIME ONE Stop: 07/22/18 10:16 Last Admin: 07/22/18 10:53 Dose: 2 mg Bumetanide (Bumex) 2 mg IVPUSH ONETIME ONE Stop: 07/23/18 08:21 Last Admin: 07/23/18 08:36 Dose: 2 mg Cefoxitin Sodium (Mefoxin) Confirm Administered Dose 2 gm .ROUTE .STK-MED ONE Stop: 07/16/18 07:02 Last Admin: 07/16/18 08:41 Dose: 2 gm Ropivacaine 45 ml/Dexamethasone 8 mg/Epinephrine HCl 0.4 mg/ Sodium Chloride 32.6 ml 0 ml NERVRT ASDIRECTED [facility] Last Admin: 07/16/18 08:58 Dose: 80 syringe Cyanocobalamin (Vitamin B12) 1,000 mcg IM ONETIME ONE Stop: 07/16/18 16:01 Last Admin: 07/16/18 17:53 Dose: 1,000 mcg Dexamethasone (Dexamethasone) Confirm Administered Dose 4 mg .ROUTE .STK-MED ONE Stop: 07/16/18 07:50 Docusate Sodium (Colace) 100 mg PO BID [facility] Last Admin: 07/25/18 10:46 Dose: Not Given Fentanyl (Sublimaze) Confirm Administered Dose 100 mcg .ROUTE .STK-MED ONE Stop: 07/16/18 10:18 Fentanyl (Sublimaze) 100 mcg IVPUSH ONETIME ONE Stop: 07/16/18 11:20 Last Admin: 07/16/18 11:25 Dose: 100 mcg Fentanyl Citrate (Fentanyl) Confirm Administered Dose 500 mcg .ROUTE .[facility] ONE Stop: 07/16/18 07:51 Furosemide (Lasix) 20 mg IVPUSH ONETIME ONE Stop: 07/18/18 17:56 Last Admin: 07/18/18 18:28 Dose: Not Given Furosemide (Lasix) 10 mg IVPUSH ONETIME ONE Stop: 07/18/18 17:57 Last Admin: 07/18/18 18:28 Dose: 10 mg Furosemide (Lasix) 10 mg IVPUSH ONETIME ONE Stop: 07/19/18 08:01 Last Admin: 07/19/18 08:17 Dose: 10 mg Furosemide (Lasix) 40 mg IVPUSH ONETIME STA Stop: 07/20/18 08:55 Last Admin: 07/20/18 08:59 Dose: 40 mg Gabapentin (Neurontin) 300 mg PO ONETIME ONE Stop: 07/16/18 06:16 Last Admin: 07/16/18 06:28 Dose: 300 mg Glycopyrrolate (Robinul) Confirm Administered Dose 1 mg .ROUTE .STK-MED ONE Stop: 07/16/18 07:50 Haloperidol Lactate (Haldol) 4 mg IM ONETIME ONE Stop: 07/25/18 12:47 Last Admin: 07/25/18 13:04 Dose: 4 mg Hydromorphone HCl (Dilaudid [employer] 15 Mg In Ns 30 Ml) 0 mg IV ASDIRECTED PRN; Protocol 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 Last Admin: 07/18/18 00:33 Dose: 15 mg Hydroxyzine HCl (Vistaril) 100 mg IM ONETIME ONE Stop: 07/16/18 11:14 Last Admin: 07/16/18 11:18 Dose: 100 mg Hydroxyzine HCl (Vistaril) 100 mg IM Q4H PRN PRN Reason: pain Last Admin: 07/20/18 16:29 Dose: 100 mg Cefoxitin Sodium 2 gm/ Sodium (Chloride) 50 mls @ 100 mls/hr IV ONETIME ONE Stop: 07/16/18 08:29 Last Admin: 07/16/18 07:57 Dose: 100 mls/hr Dextrose/Lactated Ringer's (Dextrose 5%-Lactated Ringers) 1,000 mls @ 100 mls/ hr IV ASDIRECTED [facility] Last Admin: 07/16/18 06:29 Dose: 100 mls/hr Ketamine HCl 50 mg/ Sodium (Chloride) 50 mls @ 17 mls/hr IV ASDIRECTED [facility] Lactated Ringer's (Ringers, Lactated) Confirm Administered Dose 1,000 mls @ as directed .ROUTE .STK-MED ONE Stop: 07/16/18 10:32 Dextrose/Lactated Ringer's (Dextrose 5%-Lactated Ringers) 1,000 mls @ 150 mls/ hr IV ASDIRECTED [facility] Last Admin: 07/17/18 01:03 Dose: 150 mls/hr Multivitamins/Minerals 10 ml/Chromium/Copper/Manganese/Seleni/Zn 1 ml/ Dextrose/ Lactated Ringer's 1,011 mls @ 150 mls/hr IV DAILY@1600 [facility] Last Admin: 07/18/18 16:05 Dose: 150 mls/hr Cefoxitin Sodium 2 gm/ Sodium (Chloride) 50 mls @ 100 mls/hr IV Q6H [facility] Stop: 07/17/18 22:29 Last Admin: 07/17/18 22:50 Dose: 100 mls/hr Ferric Sodium Gluconate Complex 250 mg/ Sodium Chloride 120 mls @ 60 mls/hr IV Q24H [facility] Stop: 07/17/18 19:59 Last Admin: 07/17/18 18:00 Dose: 60 mls/hr Lactated Ringer's (Ringers, Lactated) 500 mls @ 999 mls/hr IV ASDIRECTED [facility] Stop: 07/16/18 15:31 Last Admin: 07/16/18 15:15 Dose: 999 mls/hr Lactated Ringer's (Ringers, Lactated) 500 mls @ 999 mls/hr IV ASDIRECTED [facility] Stop: 07/16/18 17:31 Last Admin: 07/16/18 17:00 Dose: 999 mls/hr Magnesium Sulfate 2 gm/ Premix 50 mls @ 25 mls/hr IV Q6H [facility] Stop: 07/19/18 05:59 Last Admin: 07/19/18 04:02 Dose: 25 mls/hr Dextrose/Lactated Ringer's (Dextrose 5%-Lactated Ringers) 1,000 mls @ 100 mls/ hr IV ASDIRECTED [facility] Last Admin: 07/18/18 22:44 Dose: 100 mls/hr Albumin Human (Albumin 25%) 25 gm in 100 mls @ 25 mls/hr IV ONETIME ONE Stop: 07/19/18 23:59 Last Admin: 07/19/18 20:42 Dose: 25 mls/hr Albumin Human (Albumin 25%) 25 gm in 100 mls @ 25 mls/hr IV ONETIME ONE Stop: 07/20/18 04:00 Last Admin: 07/20/18 01:21 Dose: 25 mls/hr Sodium Chloride (Normal Saline) 1,000 mls @ 80 mls/hr IV ASDIRECTED [facility] Last Admin: 07/20/18 05:42 Dose: 80 mls/hr Albumin Human (Albumin 25%) 25 gm in 100 mls @ 25 mls/hr IV DAILY [facility] Stop: 07/22/18 12:59 Last Admin: 07/22/18 09:02 Dose: 25 mls/hr Albumin Human (Albumin 25%) 25 gm in 100 mls @ 25 mls/hr IV Q24H [facility] Stop: 07/22/18 16:59 Albumin Human (Albumin 25%) 25 gm in 100 mls @ 25 mls/hr IV Q24H [facility] Stop: 07/22/18 16:59 Last Admin: 07/22/18 14:00 Dose: 25 mls/hr Sodium Chloride (Normal Saline) 1,000 mls @ 500 mls/hr IV ASDIRECTED [facility] Stop: 07/20/18 21:46 Last Admin: 07/20/18 19:47 Dose: 500 mls/hr Sodium Chloride (Normal Saline) 1,000 mls @ 250 mls/hr IV ASDIRECTED [facility] Stop: 07/21/18 02:31 Last Admin: 07/20/18 22:49 Dose: 250 mls/hr Potassium Chloride 20 meq/ (Sodium Chloride) 110 mls @ 55 mls/hr IV Q2H [facility] Stop: 07/21/18 14:59 Potassium Chloride 20 meq/Lidocaine HCl 2 ml/ Sodium Chloride 112 mls @ 56 mls/ hr IV Q2H [facility] Stop: 07/21/18 14:59 Last Admin: 07/21/18 15:25 Dose: 56 mls/hr Acetaminophen 1,000 mg/ Premix 100 mls @ 400 mls/hr IV NOW ONE Stop: 07/21/18 09:14 Last Admin: 07/21/18 09:43 Dose: 400 mls/hr Potassium Chloride/Dextrose/Sod Cl (D5 1/2 Ns W/ 20 Meq/L Kcl) 1,000 mls @ 60 mls/hr IV ASDIRECTED [facility] Multivitamins/Minerals 10 ml/Thiamine HCl 100 mg/ Chromium/Copper/Manganese/ Seleni/Zn 1 ml/ Potassium Chloride/Dextrose/Sod Cl 1,012 mls @ 60 mls/hr IV ONETIME ONE Stop: 07/23/18 06:51 Last Admin: 07/22/18 14:01 Dose: Not Given Magnesium Sulfate 2 gm/ Premix 50 mls @ 25 mls/hr IV Q6H [facility] Stop: 07/25/18 05:59 Last Admin: 07/25/18 04:25 Dose: 25 mls/hr Potassium Phosphate 22.5 mmole (/ Sodium Chloride) 257.5 mls @ 65 mls/hr IV Q4H [facility] Stop: 07/22/18 16:58 Last Admin: 07/22/18 13:59 Dose: 65 mls/hr Ampicillin Sodium/Sulbactam (Sodium 1.5 gm/ Sodium Chloride) 50 mls @ 100 mls/ hr IV Q6H [facility] Last Admin: 07/24/18 04:10 Dose: 100 mls/hr Lactated Ringer's (Ringers, Lactated) 1,000 mls @ 500 mls/hr IV ASDIRECTED [facility] Last Admin: 07/22/18 16:00 Dose: 500 mls/hr Lactated Ringer's (Ringers, Lactated) 1,000 mls @ 250 mls/hr IV ASDIRECTED [facility] Stop: 07/22/18 22:59 Last Admin: 07/22/18 19:33 Dose: 250 mls/hr Lactated Ringer's (Ringers, Lactated) 1,000 mls @ 125 mls/hr IV ASDIRECTED [facility] Last Admin: 07/22/18 23:01 Dose: 125 mls/hr Lactated Ringer's (Ringers, Lactated) 1,000 mls @ 500 mls/hr IV ONETIME ONE Stop: 07/23/18 22:18 Last Admin: 07/23/18 20:35 Dose: 500 mls/hr Potassium Phosphate 22.5 mmole (/ Sodium Chloride) 257.5 mls @ 65 mls/hr IV Q4H [facility] Stop: 07/24/18 17:28 Last Admin: 07/24/18 14:23 Dose: 65 mls/hr Lactated Ringer's (Ringers, Lactated) 1,000 mls @ 500 mls/hr IV ASDIRECTED [facility] Stop: 07/24/18 19:14 Last Admin: 07/24/18 17:33 Dose: 500 mls/hr Lactated Ringer's (Ringers, Lactated) 1,000 mls @ 250 mls/hr IV ASDIRECTED [facility] Stop: 07/24/18 21:14 Lactated Ringer's (Ringers, Lactated) 1,000 mls @ 250 mls/hr IV ONETIME ONE Stop: 07/25/18 00:59 Last Admin: 07/24/18 21:13 Dose: 250 mls/hr Potassium Phosphate 22.5 mmole (/ Sodium Chloride) 257.5 mls @ 86 mls/hr IV Q3H [facility] Stop: 07/25/18 15:59 Last Admin: 07/25/18 16:36 Dose: 86 mls/hr Ketamine HCl (Ketalar) 28 mg IV ASDIRECTED [facility] Loperamide HCl (Imodium) 2 mg PO Q4H PRN PRN Reason: Diarrhea Loperamide HCl (Imodium) 4 mg PO ONETIME ONE Stop: 07/25/18 17:48 Last Admin: 07/25/18 18:13 Dose: 4 mg Lorazepam (Ativan) 0.5 mg IVPUSH Q4H PRN PRN Reason: Anxiety Last Admin: 07/21/18 16:05 Dose: 0.5 mg Metoclopramide HCl (Reglan) 10 mg IVPUSH Q6H [facility] Last Admin: 07/25/18 10:47 Dose: Not Given Naloxone HCl (Narcan) 0.1 mg IV ASDIRECTED PRN PRN Reason: decreased respiratory rate Neostigmine Methylsulfate (Neostigmine) Confirm Administered Dose 5 mg .ROUTE .STK-MED ONE Stop: 07/16/18 07:50 Ondansetron HCl (Zofran) Confirm Administered Dose 4 mg .ROUTE .STK-MED ONE Stop: 07/16/18 07:50 Pantoprazole Sodium (Protonix Iv) 40 mg IVPUSH Q24H [facility] Last Admin: 07/17/18 16:29 Dose: 40 mg Propofol (Diprivan 20 Ml) Confirm Administered Dose 200 mg .ROUTE .STK-MED ONE Stop: 07/16/18 07:50 Rocuronium [place] (Zemuron) Confirm Administered Dose 50 mg .ROUTE .STK-MED ONE Stop: 07/16/18 07:50 Scopolamine (Transderm-Scop) 1.5 mg TOP ONETIME ONE Stop: 07/16/18 06:16 Last Admin: 07/16/18 06:28 Dose: 1.5 mg Senna/Docusate Sodium (Senna Plus) 2 tab PO DAILY [facility] Last Admin: 07/25/18 10:47 Dose: Not Given Succinylcholine Chloride (Quelicin) Confirm Administered Dose 200 mg .ROUTE .STK -MED ONE Stop: 07/16/18 07:50 Tamsulosin HCl (Flomax) 0.4 mg PO ONETIME ONE Stop: 07/19/18 09:01 Last Admin: 07/19/18 08:16 Dose: 0.4 mg - Exam Quality Assessment: No: Supplemental Oxygen General: Alert, Cooperative, No Acute Distress, Lethargic. No: Oriented HEENT: Pupils Equal Lungs: Clear to Auscultation, Normal Respiratory Effort Cardiovascular: Regular Rhythm, No Murmurs, Tachycardia GI/Abdominal Exam: Normal Bowel Sounds, Soft, No Distention Extremities: No Pedal Edema. No: Increased Warmth Skin: Warm, Dry Wound/Incisions: Dressing Dry and Intact Psy/Mental Status: Alert (but lethargic). No: Agitated - Problem List Review Problem List Initiated/Reviewed/Updated: Yes - My Orders Last 24 Hours: My Active Orders 07/26/18 10:45 LORazepam [Ativan] See Protocol PO ASDIRECTED 07/26/18 20:15 Insert Buchanan Catheter [Insert Urinary Catheter] [OM.PC] Q24H 07/27/18 07:30 Levothyroxine [Synthroid] 50 mcg PO ACBREAKFAST 07/27/18 09:00 Folic Acid 1 mg PO DAILY Thiamine [Vitamin B-1] 100 mg IM DAILY 07/27/18 09:15 Magnesium Sulfate/Water [Magnesium Sulfate in Water Premix] 2 gm Premix Bag 1 bag IV Q6H 07/27/18 09:30 Initiate/Renew Non-Violent Restraints (All Ages) Q24H 07/28/18 05:00 BASIC METABOLIC PANEL,BMP [CHEM] Timed CBC W/O DIFF,HEMOGRAM [HEME] Timed (1) - Plan Plan:: ASSESSMENT AND RECOMMENDATIONS ACUTE ALCOHOL WITHDRAWAL WITH DELIRIUM - ongoing agitation and delirium but seems to be slowly coming out of alcohol withdrawal. She has been a little better each day but still experiencing alcohol withdrawal. -Alcohol withdrawal protocol (PO preferred and IV if severe) -Haldol as needed in addition to lorazepam -Supplement thiamine and folate HYPOXIC AND HYPERCAPNIC RESPIRATORY COMPROMISE - secondary to sedation with hypoventilation. Respiratory status has been stable. She has not required NIPPV in a couple of days. -Continue use of OXIMETRY and capnography to monitor respiratory status -Supplement oxygen when needed DIARRHEA - likely secondary to motility agents and recent antibiotic therapy, C. difficile found to be negative. Diarrhea has improved significantly. -Change in bowel stim meds to as needed -Probiotic therapy twice daily HYPONATREMIA - resolved ACUTE KIDNEY INJURY - resolved. -Saline lock IV MILD HYPOTHYROIDISM - TSH mildly elevated and free T4 mildly decreased. -start low dose levothyroxine (50 mcg) now that she is able to take pills -recheck levels in 4-6 weeks POSTOPERATIVE ILEUS - no vomiting. Diarrhea is better today. -NG-tube removed -Management per Dr. Gonsalez STATUS POST TOTAL ABDOMINAL HYSTERECTOMY AND BSO - ileus appears improved and Dr. Gonsalez is ordered the NG tube removed -Postoperative care per Dr. Wallace Correia MD
[2018-07-27] MEDS: Magnesium Sulfate/Water 2 GM in Premix Bag 1 BAG IV SCH ×2 (10:58→15:24)
[2018-07-27] MEDS: Gabapentin 300 MG Cap PO SCH ×3 (11:02→20:34)
[2018-07-27] MEDS: Levothyroxine 50 MCG Tab PO SCH (11:02)
[2018-07-27] MEDS: Folic Acid 1 MG Tab PO SCH (11:02)
[2018-07-27] MEDS: Lactobacillus Rhamnosus GG (Probiotic) Cap PO SCH ×2 (11:02→20:34)
[2018-07-27] MEDS: Thiamine 200 MG/2 ML MDV IM SCH (11:03)
[2018-07-27] MEDS: MVI, Adult with Vitamin K 10 ML, Thiamine 100 MG, Chromium/Copper/Mang/Selen/Zn 1 ML in... IV SCH ×4 (15:26)
[2018-07-27] MEDS: Pantoprazole 40 MG Tab.CR PO SCH (15:30)
[2018-07-27] MEDS: Tamsulosin 0.4 MG Cap.ER PO SCH (20:34)
[2018-07-27] MEDS: LORazepam 2 MG/ML SDV IV SCH ×3 (20:42→23:51)
[2018-07-28] MEDS: HYDROmorphone 0.5 MG/0.5 ML Syringe IVPUSH PRN (01:51)
[2018-07-28] MEDS: Albuterol/Ipratropium 3.0-0.5 MG/3 ML Neb Soln INH SCH ×2 (07:11→10:45)
[2018-07-28] MEDS: Levothyroxine 50 MCG Tab PO SCH (07:18)
[2018-07-28] MEDS: D5 1/2 NS w/ 20 mEq/L KCl 1,000 ML IV SCH (07:59)
[2018-07-28] MEDS: Lactobacillus Rhamnosus GG (Probiotic) Cap PO SCH ×2 (08:27→20:09)
[2018-07-28] MEDS: Folic Acid 1 MG Tab PO SCH (08:27)
[2018-07-28] MEDS: Gabapentin 300 MG Cap PO SCH ×3 (08:28→20:09)
[2018-07-28] MEDS: Thiamine 200 MG/2 ML MDV IM SCH (08:28)
[2018-07-28] MEDS ORDERED: Albuterol/Ipratropium 3.0-0.5 MG/3 ML Neb Soln INH PRN (10:48)
--- NOTE | 2018-07-28 10:49 | PCM.PN ---
- General Info Date of Service: 07/28/18 Subjective Update: There were no acute events overnight. Patient is sitting up in a chair this morning and is able to converse. She reports moderate abdominal pain. She does not report any shortness of breath or nausea. She has not had any fevers. Evidence for alcohol withdrawal has been decreasing. Patient reports that she does want to quit drinking. She didn't think that she had a problem with it. She does not want to go to treatment because she thinks she has to care for her grandson. She still has diarrhea though it's been infrequent. Functional Status: Reports: Pain Controlled, Tolerating Diet - Review of Systems General: Reports: Weakness. Denies: Fever - Patient Data Vitals - Most Recent: Last Vital Signs Temp 36.6 C 07/28/18 07:36 Pulse 97 07/28/18 10:46 Resp 16 07/28/18 07:36 BP 120/69 07/28/18 07:36 Pulse Ox 91 L 07/28/18 07:36 Orthostatic Blood Pressure [ 130/74 Supine] Orthostatic Blood Pressure [ 125/83 Standing] Orthostatic Blood Pressure [ 136/87 Sitting] Weight - Most Recent: 91.172 kg I&O - Last 24 Hours: Intake & Output 07/27/18 07/28/18 07/28/18 22:59 06:59 14:59 Intake Total 240 1519 Output Total 1750 1475 Balance -1510 44 Lab Results Last 24 Hours: Laboratory Results - last 24 hr 07/28/18 07/28/18 Range/Units 04:35 04:35 WBC 6.0 (4.5-11.0) K/uL RBC 3.20 L (3.30-5.50) M/uL Hgb 9.8 L (12.0-15.0) g/dL Hct 31.6 L (36.0-48.0) % MCV 99 H (80-98) fL MCH 31 (27-31) pg MCHC 31 L (32-36) % Plt Count 229 (150-400) K/uL Sodium 141 (140-148) mmol/L Potassium 4.0 (3.6-5.2) mmol/L Chloride 109 H (100-108) mmol/L Carbon Dioxide 27 (21-32) mmol/L Anion Gap 9.0 (5.0-14.0) mmol/L BUN 2 L (7-18) mg/dL Creatinine 0.6 (0.6-1.0) mg/dL Est Cr Clr Drug Dosing 106.37 mL/min Estimated GFR (MDRD) > 60 (>60) Glucose 85 (74-106) mg/dL Calcium 8.3 L (8.5-10.1) mg/dL Abdirashid Results Last 24 Hours: Microbiology 07/22/18 15:40 Aerobic Blood Culture - Final Blood - Arm, Left NO GROWTH AFTER 5 DAYS Anaerobic Blood Culture - Final NO GROWTH AFTER 5 DAYS 07/22/18 15:35 Aerobic Blood Culture - Final Blood - Arm, Left NO GROWTH AFTER 5 DAYS Anaerobic Blood Culture - Final NO GROWTH AFTER 5 DAYS Med Orders - Current: Current Medications Acetaminophen (Tylenol) 650 mg RECTAL Q4H PRN PRN Reason: Fever Last Admin: 07/24/18 14:27 Dose: 650 mg Albuterol/Ipratropium (Duoneb 3.0-0.5 Mg/3 Ml) 3 ml INH ASDIRECTED PRN PRN Reason: BREATHING Bisacodyl (Dulcolax) 10 mg PO BID PRN PRN Reason: Constipation Docusate Sodium (Colace) 100 mg PO BID PRN PRN Reason: Constipation Folic Acid (Folic Acid) 1 mg PO DAILY [facility] Last Admin: 07/28/18 08:27 Dose: 1 mg Gabapentin (Neurontin) 300 mg PO TID [facility] Last Admin: 07/28/18 08:28 Dose: 300 mg Haloperidol Lactate (Haldol) 2 - 4 mg IVPUSH Q2H PRN PRN Reason: Agitation Last Admin: 07/25/18 21:19 Dose: 4 mg Hydromorphone HCl (Dilaudid) 0.5 mg IVPUSH Q2H PRN PRN Reason: pain Last Admin: 07/28/18 01:51 Dose: 0.5 mg Potassium Chloride/Dextrose/Sod Cl (D5 1/2 Ns W/ 20 Meq/L Kcl) 1,000 mls @ 60 mls/hr IV ASDIRECTED [facility] Last Admin: 07/28/18 07:59 Dose: 60 mls/hr Lactated Ringer's (Ringers, Lactated) 1,000 mls @ 60 mls/hr IV ASDIRECTED [facility] Last Admin: 07/23/18 22:37 Dose: 60 mls/hr Lactobacillus Rhamnosus (Culturelle) 1 cap PO BID [facility] Last Admin: 07/28/18 08:27 Dose: 1 cap Levothyroxine Sodium (Synthroid) 50 mcg PO ACBREAKFAST [facility] Last Admin: 07/28/18 07:18 Dose: 50 mcg Loperamide HCl (Imodium) 2 mg PO Q4H PRN PRN Reason: Diarrhea Lorazepam (Ativan) 0 mg PO ASDIRECTED [facility]; Protocol Last Admin: 07/27/18 19:32 Dose: 2 mg Ondansetron HCl (Zofran) 4 mg IVPUSH Q4H PRN PRN Reason: Nausea/Vomiting Last Admin: 07/21/18 06:46 Dose: 4 mg Ondansetron HCl (Zofran Odt) 4 mg PO Q4H PRN PRN Reason: Nausea/Vomiting Last Admin: 07/20/18 04:05 Dose: 4 mg Oxycodone/Acetaminophen (Percocet 325-5 Mg) 1 - 2 tab PO Q4H PRN PRN Reason: paiin Last Admin: 07/27/18 01:29 Dose: 1 tab Pantoprazole Sodium (Protonix) 40 mg PO Q24H [facility] Last Admin: 07/27/18 15:30 Dose: 40 mg Sodium Chloride (Saline Flush) 10 ml IV ASDIRECTED PRN PRN Reason: [employer] Tamsulosin HCl (Flomax) 0.4 mg PO BEDTIME [facility] Last Admin: 07/27/18 20:34 Dose: 0.4 mg Thiamine HCl (Vitamin B-1) 100 mg IM DAILY [facility] Last Admin: 07/28/18 08:28 Dose: 100 mg Discontinued Medications Acetaminophen (Tylenol Extra Strength) 1,000 mg PO ONETIME ONE Stop: 07/16/18 06:16 Last Admin: 07/16/18 06:28 Dose: 1,000 mg Albuterol/Ipratropium (Duoneb 3.0-0.5 Mg/3 Ml) 3 ml NEB ONETIME ONE Stop: 07/16/18 07:01 Last Admin: 07/16/18 06:28 Dose: 3 ml Albuterol/Ipratropium (Duoneb 3.0-0.5 Mg/3 Ml) 3 ml INH QIDRT [facility] Last Admin: 07/28/18 10:45 Dose: 3 ml Bisacodyl (Dulcolax) 10 mg PO BID [facility] Last Admin: 07/25/18 10:47 Dose: Not Given Bisacodyl (Dulcolax) 10 mg RECTAL BID [facility] Last Admin: 07/21/18 11:54 Dose: 10 mg Bisacodyl (Dulcolax) 10 mg RECTAL ONETIME PRN PRN Reason: IF NO RESULT FROM AM DOSE Stop: 07/21/18 19:00 Bumetanide (Bumex) 4 mg IVPUSH ONETIME ONE Stop: 07/20/18 15:46 Last Admin: 07/20/18 15:52 Dose: 4 mg Bumetanide (Bumex) 2 mg IVPUSH NOW ONE Stop: 07/21/18 08:01 Last Admin: 07/21/18 08:20 Dose: 2 mg Bumetanide (Bumex) 2 mg IVPUSH ONETIME ONE Stop: 07/22/18 10:16 Last Admin: 07/22/18 10:53 Dose: 2 mg Bumetanide (Bumex) 2 mg IVPUSH ONETIME ONE Stop: 07/23/18 08:21 Last Admin: 07/23/18 08:36 Dose: 2 mg Cefoxitin Sodium (Mefoxin) Confirm Administered Dose 2 gm .ROUTE .STK-MED ONE Stop: 07/16/18 07:02 Last Admin: 07/16/18 08:41 Dose: 2 gm Ropivacaine 45 ml/Dexamethasone 8 mg/Epinephrine HCl 0.4 mg/ Sodium Chloride 32.6 ml 0 ml NERVRT ASDIRECTED [facility] Last Admin: 07/16/18 08:58 Dose: 80 syringe Cyanocobalamin (Vitamin B12) 1,000 mcg IM ONETIME ONE Stop: 07/16/18 16:01 Last Admin: 07/16/18 17:53 Dose: 1,000 mcg Dexamethasone (Dexamethasone) Confirm Administered Dose 4 mg .ROUTE .STK-MED ONE Stop: 07/16/18 07:50 Docusate Sodium (Colace) 100 mg PO BID [facility] Last Admin: 07/25/18 10:46 Dose: Not Given Fentanyl (Sublimaze) Confirm Administered Dose 100 mcg .ROUTE .STK-MED ONE Stop: 07/16/18 10:18 Fentanyl (Sublimaze) 100 mcg IVPUSH ONETIME ONE Stop: 07/16/18 11:20 Last Admin: 07/16/18 11:25 Dose: 100 mcg Fentanyl Citrate (Fentanyl) Confirm Administered Dose 500 mcg .ROUTE .STK-MED ONE Stop: 07/16/18 07:51 Furosemide (Lasix) 20 mg IVPUSH ONETIME ONE Stop: 07/18/18 17:56 Last Admin: 07/18/18 18:28 Dose: Not Given Furosemide (Lasix) 10 mg IVPUSH ONETIME ONE Stop: 07/18/18 17:57 Last Admin: 07/18/18 18:28 Dose: 10 mg Furosemide (Lasix) 10 mg IVPUSH ONETIME ONE Stop: 07/19/18 08:01 Last Admin: 07/19/18 08:17 Dose: 10 mg Furosemide (Lasix) 40 mg IVPUSH ONETIME STA Stop: 07/20/18 08:55 Last Admin: 07/20/18 08:59 Dose: 40 mg Gabapentin (Neurontin) 300 mg PO ONETIME ONE Stop: 07/16/18 06:16 Last Admin: 07/16/18 06:28 Dose: 300 mg Glycopyrrolate (Robinul) Confirm Administered Dose 1 mg .ROUTE .STK-MED ONE Stop: 07/16/18 07:50 Haloperidol Lactate (Haldol) 4 mg IM ONETIME ONE Stop: 07/25/18 12:47 Last Admin: 07/25/18 13:04 Dose: 4 mg Hydromorphone HCl (Dilaudid [employer] 15 Mg In Ns 30 Ml) 0 mg IV ASDIRECTED PRN; Protocol PRN Reason: HOUSE ADMIN PAIN CONTROL Last Admin: 07/18/18 00:33 Dose: 15 mg Hydroxyzine HCl (Vistaril) 100 mg IM ONETIME ONE Stop: 07/16/18 11:14 Last Admin: 07/16/18 11:18 Dose: 100 mg Hydroxyzine HCl (Vistaril) 100 mg IM Q4H PRN PRN Reason: pain Last Admin: 07/20/18 16:29 Dose: 100 mg Cefoxitin Sodium 2 gm/ Sodium (Chloride) 50 mls @ 100 mls/hr IV ONETIME ONE Stop: 07/16/18 08:29 Last Admin: 07/16/18 07:57 Dose: 100 mls/hr Dextrose/Lactated Ringer's (Dextrose 5%-Lactated Ringers) 1,000 mls @ 100 mls/ hr IV ASDIRECTED [facility] Last Admin: 07/16/18 06:29 Dose: 100 mls/hr Ketamine HCl 50 mg/ Sodium (Chloride) 50 mls @ 17 mls/hr IV ASDIRECTED [facility] Lactated Ringer's (Ringers, Lactated) Confirm Administered Dose 1,000 mls @ as directed .ROUTE .STK-MED ONE Stop: 07/16/18 10:32 Dextrose/Lactated Ringer's (Dextrose 5%-Lactated Ringers) 1,000 mls @ 150 mls/ hr IV ASDIRECTED [facility] Last Admin: 07/17/18 01:03 Dose: 150 mls/hr Multivitamins/Minerals 10 ml/Chromium/Copper/Manganese/Seleni/Zn 1 ml/ Dextrose/ Lactated Ringer's 1,011 mls @ 150 mls/hr IV DAILY@1600 [facility] Last Admin: 07/18/18 16:05 Dose: 150 mls/hr Cefoxitin Sodium 2 gm/ Sodium (Chloride) 50 mls @ 100 mls/hr IV Q6H [facility] Stop: 07/17/18 22:29 Last Admin: 07/17/18 22:50 Dose: 100 mls/hr Ferric Sodium Gluconate Complex 250 mg/ Sodium Chloride 120 mls @ 60 mls/hr IV Q24H [facility] Stop: 07/17/18 19:59 Last Admin: 07/17/18 18:00 Dose: 60 mls/hr Lactated Ringer's (Ringers, Lactated) 500 mls @ 999 mls/hr IV ASDIRECTED [facility] Stop: 07/16/18 15:31 Last Admin: 07/16/18 15:15 Dose: 999 mls/hr Lactated Ringer's (Ringers, Lactated) 500 mls @ 999 mls/hr IV ASDIRECTED [facility] Stop: 07/16/18 17:31 Last Admin: 07/16/18 17:00 Dose: 999 mls/hr Magnesium Sulfate 2 gm/ Premix 50 mls @ 25 mls/hr IV Q6H [facility] Stop: 07/19/18 05:59 Last Admin: 07/19/18 04:02 Dose: 25 mls/hr Dextrose/Lactated Ringer's (Dextrose 5%-Lactated Ringers) 1,000 mls @ 100 mls/ hr IV ASDIRECTED [facility] Last Admin: 07/18/18 22:44 Dose: 100 mls/hr Albumin Human (Albumin 25%) 25 gm in 100 mls @ 25 mls/hr IV ONETIME ONE Stop: 07/19/18 23:59 Last Admin: 07/19/18 20:42 Dose: 25 mls/hr Albumin Human (Albumin 25%) 25 gm in 100 mls @ 25 mls/hr IV ONETIME ONE Stop: 07/20/18 04:00 Last Admin: 07/20/18 01:21 Dose: 25 mls/hr Sodium Chloride (Normal Saline) 1,000 mls @ 80 mls/hr IV ASDIRECTED [facility] Last Admin: 07/20/18 05:42 Dose: 80 mls/hr Albumin Human (Albumin 25%) 25 gm in 100 mls @ 25 mls/hr IV DAILY [facility] Stop: 07/22/18 12:59 Last Admin: 07/22/18 09:02 Dose: 25 mls/hr Albumin Human (Albumin 25%) 25 gm in 100 mls @ 25 mls/hr IV Q24H [facility] Stop: 07/22/18 16:59 Albumin Human (Albumin 25%) 25 gm in 100 mls @ 25 mls/hr IV Q24H [facility] Stop: 07/22/18 16:59 Last Admin: 07/22/18 14:00 Dose: 25 mls/hr Sodium Chloride (Normal Saline) 1,000 mls @ 500 mls/hr IV ASDIRECTED [facility] Stop: 07/20/18 21:46 Last Admin: 07/20/18 19:47 Dose: 500 mls/hr Sodium Chloride (Normal Saline) 1,000 mls @ 250 mls/hr IV ASDIRECTED [facility] Stop: 07/21/18 02:31 Last Admin: 07/20/18 22:49 Dose: 250 mls/hr Potassium Chloride 20 meq/ (Sodium Chloride) 110 mls @ 55 mls/hr IV Q2H [facility] Stop: 07/21/18 14:59 Potassium Chloride 20 meq/Lidocaine HCl 2 ml/ Sodium Chloride 112 mls @ 56 mls/ hr IV Q2H [facility] Stop: 07/21/18 14:59 Last Admin: 07/21/18 15:25 Dose: 56 mls/hr Acetaminophen 1,000 mg/ Premix 100 mls @ 400 mls/hr IV NOW ONE Stop: 07/21/18 09:14 Last Admin: 07/21/18 09:43 Dose: 400 mls/hr Potassium Chloride/Dextrose/Sod Cl (D5 1/2 Ns W/ 20 Meq/L Kcl) 1,000 mls @ 60 [facility] Multivitamins/Minerals 10 ml/Thiamine HCl 100 mg/ Chromium/Copper/Manganese/ Seleni/Zn 1 ml/ Potassium Chloride/Dextrose/Sod Cl 1,012 mls @ 60 mls/hr IV ONETIME ONE Stop: 07/23/18 06:51 Last Admin: 07/22/18 14:01 Dose: Not Given Magnesium Sulfate 2 gm/ Premix 50 mls @ 25 mls/hr IV Q6H [facility] Stop: 07/25/18 05:59 Last Admin: 07/25/18 04:25 Dose: 25 mls/hr Potassium Phosphate 22.5 mmole (/ Sodium Chloride) 257.5 mls @ 65 mls/hr IV Q4H [facility] Stop: 07/22/18 16:58 Last Admin: 07/22/18 13:59 Dose: 65 mls/hr Ampicillin Sodium/Sulbactam (Sodium 1.5 gm/ Sodium Chloride) 50 mls @ 100 mls/ hr IV Q6H [facility] Last Admin: 07/24/18 04:10 Dose: 100 mls/hr Lactated Ringer's (Ringers, Lactated) 1,000 mls @ 500 mls/hr IV [facility] Last Admin: 07/22/18 16:00 Dose: 500 mls/hr Lactated Ringer's (Ringers, Lactated) 1,000 mls @ 250 [facility]ls[facility] Stop: 07/22/18 22:59 Last Admin: 07/22/18 19:33 Dose: 250 mls/hr Lactated Ringer's (Ringers, Lactated) 1,000 mls @ 125 mls[facility] Last Admin: 07/22/18 23:01 Dose: 125 mls/hr Multivitamins/Minerals 10 ml/Thiamine HCl 100 mg/ Chromium/Copper/Manganese/ Seleni/Zn 1 ml/ Potassium Chloride/Dextrose/Sod Cl 1,012 mls @ 60 mls/hr IV DAILY@1600 [facility] Last Admin: 07/27/18 15:26 Dose: 60 mls/hr Lactated Ringer's (Ringers, Lactated) 1,000 mls @ 500 mls/hr IV ONETIME ONE Stop: 07/23/18 22:18 Last Admin: 07/23/18 20:35 Dose: 500 mls/hr Potassium Phosphate 22.5 mmole (/ Sodium Chloride) 257.5 mls @ 65 mls/hr IV Q4H [facility] Stop: 07/24/18 17:28 Last Admin: 07/24/18 14:23 Dose: 65 mls/hr Lactated Ringer's (Ringers, Lactated) 1,000 mls @ 500 mls/hr IV ASDIRECTED [facility] Stop: 07/24/18 19:14 Last Admin: 07/24/18 17:33 Dose: 500 mls/hr Lactated Ringer's (Ringers, Lactated) 1,000 mls @ 250 mls/hr IV ASDIRECTED [facility] Stop: 07/24/18 21:14 Lactated Ringer's (Ringers, Lactated) 1,000 mls @ 250 mls/hr IV ONETIME ONE Stop: 07/25/18 00:59 Last Admin: 07/24/18 21:13 Dose: 250 mls/hr Potassium Phosphate 22.5 mmole (/ Sodium Chloride) 257.5 mls @ 86 mls/hr IV Q3H [facility] Stop: 07/25/18 15:59 Last Admin: 07/25/18 16:36 Dose: 86 mls/hr Magnesium Sulfate 2 gm/ Premix 50 mls @ 12.5 mls/hr IV Q6H [facility] Stop: 07/27/18 19:59 Last Admin: 07/27/18 15:24 Dose: 12.5 mls/hr Ketamine HCl (Ketalar) 28 mg IV ASDIRECTED [facility] Loperamide HCl (Imodium) 2 mg PO Q4H PRN PRN Reason: Diarrhea Loperamide HCl (Imodium) 4 mg PO ONETIME ONE Stop: 07/25/18 17:48 Last Admin: 07/25/18 18:13 Dose: 4 mg Lorazepam (Ativan) 0.5 mg IVPUSH Q4H PRN PRN Reason: Anxiety Last Admin: 07/21/18 16:05 Dose: 0.5 mg Lorazepam (Ativan) 0 mg IV ASDIRECTED [facility]; Protocol Last Admin: 07/27/18 23:51 Dose: 2 mg Metoclopramide HCl (Reglan) 10 mg IVPUSH Q6H [facility] Last Admin: 07/25/18 10:47 Dose: Not Given Naloxone HCl (Narcan) 0.1 mg IV ASDIRECTED PRN PRN Reason: decreased respiratory rate Neostigmine Methylsulfate (Neostigmine) Confirm Administered Dose 5 mg .ROUTE .STK-MED ONE Stop: 07/16/18 07:50 Ondansetron HCl (Zofran) Confirm Administered Dose 4 mg .ROUTE .STK-MED ONE Stop: 07/16/18 07:50 Pantoprazole Sodium (Protonix Iv) 40 mg IVPUSH Q24H [facility] Last Admin: 07/17/18 16:29 Dose: 40 mg Propofol (Diprivan 20 Ml) Confirm Administered Dose 200 mg .ROUTE .STK-MED ONE Stop: 07/16/18 07:50 Rocuronium [place] (Zemuron) Confirm Administered Dose 50 mg .ROUTE .STK-MED ONE Stop: 07/16/18 07:50 Scopolamine (Transderm-Scop) 1.5 mg TOP ONETIME ONE Stop: 07/16/18 06:16 Last Admin: 07/16/18 06:28 Dose: 1.5 mg Senna/Docusate Sodium (Senna Plus) 2 tab PO DAILY [facility] Last Admin: 07/25/18 10:47 Dose: Not Given Succinylcholine Chloride (Quelicin) Confirm Administered Dose 200 mg .ROUTE .STK -MED ONE Stop: 07/16/18 07:50 Tamsulosin HCl (Flomax) 0.4 mg PO ONETIME ONE Stop: 07/19/18 09:01 Last Admin: 07/19/18 08:16 Dose: 0.4 mg - Exam Quality Assessment: No: Supplemental Oxygen General: Alert, Oriented, Cooperative, No Acute Distress Lungs: Clear to Auscultation, Normal Respiratory Effort Cardiovascular: Regular Rate, Regular Rhythm GI/Abdominal Exam: Soft, No Distention Extremities: No Pedal Edema. No: Increased Warmth Skin: Warm, Dry Psy/Mental Status: Alert, Depressed - Problem List Review Problem List Initiated/Reviewed/Updated: Yes - My Orders Last 24 Hours: My Active Orders 07/28/18 10:47 DC [place]anan Catheter [Urinary Catheter Removal] [RC] Per Unit Routine 07/28/18 10:48 Albuterol/Ipratropium [DuoNeb 3.0-0.5 MG/3 ML] 3 ml INH QIDRT PRN 07/29/18 05:00 BASIC METABOLIC PANEL,BMP [CHEM] Timed CBC W/O DIFF,HEMOGRAM [HEME] Timed (1) - Plan Plan:: ASSESSMENT AND RECOMMENDATIONS ACUTE ALCOHOL WITHDRAWAL WITH DELIRIUM - delirium and agitation seemed to finally have resolved. More interactive today. She is interested in quitting. -Alcohol withdrawal protocol (PO preferred) -Haldol as needed in addition to lorazepam -Supplement thiamine and folate -Physical therapy HYPOXIC AND HYPERCAPNIC RESPIRATORY COMPROMISE - secondary to sedation with hypoventilation. Respiratory status has been stable but she does intermittent may require oxygen, usually overnight. -Continue use of OXIMETRY and capnography to monitor respiratory status -Supplement oxygen when needed DIARRHEA - likely secondary to motility agents and recent antibiotic therapy, C. difficile found to be negative. Diarrhea has improved significantly. -Probiotic therapy twice daily HYPONATREMIA - resolved ACUTE KIDNEY INJURY - resolved. -Saline lock IV MILD HYPOTHYROIDISM - TSH mildly elevated and free T4 mildly decreased. -Continue low dose levothyroxine (50 mcg) -recheck levels in 4-6 weeks POSTOPERATIVE ILEUS - no vomiting. Diarrhea is better today. -NG-tube removed -Management per Dr. Gonsalez STATUS POST TOTAL ABDOMINAL HYSTERECTOMY AND BSO - ileus appears improved and Dr. Gonsalez is ordered the NG tube removed -Postoperative care per Dr. Wallace Correia MD
--- NOTE | 2018-07-28 13:18 | PN ---
DATE OF SERVICE: 07/28/2018 The patient has been afebrile with stable vital signs. Remains quite related to apparent alcohol withdrawal. Otherwise, oral intake was little over a liter and continues to move the bowels, and output has been satisfactory with a net diuresis over the last 24 hours. At this point, there is nothing more acute going on and we are mostly in resolution of the alcohol withdrawal. Errol Gonsalez MD /[id number]
[2018-07-28] MEDS: Acetaminophen/oxyCODONE 325-5 MG Tab PO PRN ×2 (14:52→20:13)
[2018-07-28] MEDS: Pantoprazole 40 MG Tab.CR PO SCH (15:00)
[2018-07-28] MEDS ORDERED: Haloperidol 5 MG Tab PO PRN (15:38)
--- NOTE | 2018-07-28 15:40 | PCM.SN ---
- Free Text/Narrative Note: Pt pulled PICC line out. Will try to manage without IV since she will likely pull out any peripheral IV that is placed. Seems to be through the worst of the EtOH w/d. Has PO lorazepam and PO haldol ordered. Rajinder Correia MD
[2018-07-28] MEDS: LORazepam 1 MG Tab PO SCH ×2 (15:54→17:45)
[2018-07-28] MEDS: Tamsulosin 0.4 MG Cap.ER PO SCH (20:09)
[2018-07-29] MEDS: LORazepam 1 MG Tab PO SCH (00:23)
[2018-07-29] MEDS: Acetaminophen/oxyCODONE 325-5 MG Tab PO PRN ×2 (02:24→13:49)
[2018-07-29] MEDS: Levothyroxine 50 MCG Tab PO SCH (08:19)
[2018-07-29] MEDS: Lactobacillus Rhamnosus GG (Probiotic) Cap PO SCH ×2 (08:19→20:36)
[2018-07-29] MEDS: Gabapentin 300 MG Cap PO SCH ×3 (08:20→20:36)
[2018-07-29] MEDS: Thiamine 100 MG Tab PO SCH (08:20)
[2018-07-29] MEDS: Folic Acid 1 MG Tab PO SCH (08:20)
--- NOTE | 2018-07-29 09:35 | PCM.PN ---
- General Info Date of Service: 07/29/18 Subjective Update: There were no acute events overnight. She reports her abdominal pain is fairly well-controlled. She continues to be very unsteady on her feet and is impulsive at times. Appetite has been steadily improving. She has not had any fevers. She is off supplemental oxygen. She does continue to receive lorazepam though it has been by mouth and very intermittently. Seems to be nearly complete with her alcohol withdrawal. Functional Status: Reports: Pain Controlled, Tolerating Diet - Review of Systems General: Reports: Weakness Psychiatric: Reports: Confusion - Patient Data Vitals - Most Recent: Last Vital Signs Temp 36.5 C 07/29/18 08:00 Pulse 98 07/29/18 08:00 Resp 18 07/29/18 08:00 BP 120/87 07/29/18 08:00 Pulse Ox 95 07/29/18 05:58 Orthostatic Blood Pressure [ 130/74 Supine] Orthostatic Blood Pressure [ 125/83 Standing] Orthostatic Blood Pressure [ 136/87 Sitting] Weight - Most Recent: 91.172 kg I&O - Last 24 Hours: Intake & Output 07/28/18 07/29/18 07/29/18 22:59 06:59 14:59 Intake Total 900 Output Total 825 350 Balance -825 550 Lab Results Last 24 Hours: Laboratory Results - last 24 hr 07/29/18 07/29/18 Range/Units 04:55 04:55 WBC 5.1 (4.5-11.0) K/uL RBC 3.45 (3.30-5.50) M/uL Hgb 10.4 L (12.0-15.0) g/dL Hct 33.9 L (36.0-48.0) % MCV 98 (80-98) fL MCH 30 (27-31) pg MCHC 31 L (32-36) % Plt Count 210 (150-400) K/uL Sodium 141 (140-148) mmol/L Potassium 3.9 (3.6-5.2) mmol/L Chloride 109 H (100-108) mmol/L Carbon Dioxide 28 (21-32) mmol/L Anion Gap 7.9 (5.0-14.0) mmol/L BUN 3 L (7-18) mg/dL Creatinine 0.5 L (0.6-1.0) mg/dL Est Cr Clr Drug Dosing 127.65 mL/min Estimated GFR (MDRD) > 60 (>60) Glucose 79 (74-106) mg/dL Calcium 8.5 (8.5-10.1) mg/dL Med Orders - Current: Current Medications Acetaminophen (Tylenol) 650 mg RECTAL Q4H PRN PRN Reason: Fever Last Admin: 07/24/18 14:27 Dose: 650 mg Albuterol/Ipratropium (Duoneb 3.0-0.5 Mg/3 Ml) 3 ml INH QIDRT PRN PRN Reason: Shortness of Breath Bisacodyl (Dulcolax) 10 mg PO BID PRN PRN Reason: Constipation Docusate Sodium (Colace) 100 mg PO BID PRN PRN Reason: Constipation Folic Acid (Folic Acid) 1 mg PO DAILY [facility] Last Admin: 07/29/18 08:20 Dose: 1 mg Gabapentin (Neurontin) 300 mg PO TID [facility] Last Admin: 07/29/18 08:20 Dose: 300 mg Haloperidol (Haldol) 5 mg PO Q6H PRN PRN Reason: Agitation Lactobacillus Rhamnosus (Culturelle) 1 cap PO BID [facility] Last Admin: 07/29/18 08:19 Dose: 1 cap Levothyroxine Sodium (Synthroid) 50 mcg PO ACBREAKFAST [facility] Last Admin: 07/29/18 08:19 Dose: 50 mcg Loperamide HCl (Imodium) 2 mg PO Q4H PRN PRN Reason: Diarrhea Lorazepam (Ativan) 0 mg PO ASDIRECTED [facility]; Protocol Last Admin: 07/29/18 00:23 Dose: 1 mg Ondansetron HCl (Zofran Odt) 4 mg PO Q4H PRN PRN Reason: Nausea/Vomiting Last Admin: 07/20/18 04:05 Dose: 4 mg Oxycodone/Acetaminophen (Percocet 325-5 Mg) 1 - 2 tab PO Q4H PRN PRN Reason: paiin Last Admin: 07/29/18 02:24 Dose: 1 tab Pantoprazole Sodium (Protonix) 40 mg PO Q24H [facility] Last Admin: 07/28/18 15:00 Dose: 40 mg Tamsulosin HCl (Flomax) 0.4 mg PO BEDTIME [facility] Last Admin: 07/28/18 20:09 Dose: 0.4 mg Thiamine HCl (Vitamin B-1) 100 mg PO DAILY [facility] Last Admin: 07/29/18 08:20 Dose: 100 mg Discontinued Medications Acetaminophen (Tylenol Extra Strength) 1,000 mg PO ONETIME ONE Stop: 07/16/18 06:16 Last Admin: 07/16/18 06:28 Dose: 1,000 mg Albuterol/Ipratropium (Duoneb 3.0-0.5 Mg/3 Ml) 3 ml NEB ONETIME ONE Stop: 07/16/18 07:01 Last Admin: 07/16/18 06:28 Dose: 3 ml Albuterol/Ipratropium (Duoneb 3.0-0.5 Mg/3 Ml) 3 ml INH QIDRT [facility] Last Admin: 07/28/18 10:45 Dose: 3 ml Albuterol/Ipratropium (Duoneb 3.0-0.5 Mg/3 Ml) 3 ml INH ASDIRECTED PRN PRN Reason: BREATHING Bisacodyl (Dulcolax) 10 mg PO BID [facility] Last Admin: 07/25/18 10:47 Dose: Not Given Bisacodyl (Dulcolax) 10 mg RECTAL BID [facility] Last Admin: 07/21/18 11:54 Dose: 10 mg Bisacodyl (Dulcolax) 10 mg RECTAL ONETIME PRN PRN Reason: IF NO RESULT FROM AM DOSE Stop: 07/21/18 19:00 Bumetanide (Bumex) 4 mg IVPUSH ONETIME ONE Stop: 07/20/18 15:46 Last Admin: 07/20/18 15:52 Dose: 4 mg Bumetanide (Bumex) 2 mg IVPUSH NOW ONE Stop: 07/21/18 08:01 Last Admin: 07/21/18 08:20 Dose: 2 mg Bumetanide (Bumex) 2 mg IVPUSH ONETIME ONE Stop: 07/22/18 10:16 Last Admin: 07/22/18 10:53 Dose: 2 mg Bumetanide (Bumex) 2 mg IVPUSH ONETIME ONE Stop: 07/23/18 08:21 Last Admin: 07/23/18 08:36 Dose: 2 mg Cefoxitin Sodium (Mefoxin) Confirm Administered Dose 2 gm .ROUTE .STK-MED ONE Stop: 07/16/18 07:02 Last Admin: 07/16/18 08:41 Dose: 2 gm Ropivacaine 45 ml/Dexamethasone 8 mg/Epinephrine HCl 0.4 mg/ Sodium Chloride 32.6 ml 0 ml NERVRT ASDIRECTED [facility] Last Admin: 07/16/18 08:58 Dose: 80 syringe Cyanocobalamin (Vitamin B12) 1,000 mcg IM ONETIME ONE Stop: 07/16/18 16:01 Last Admin: 07/16/18 17:53 Dose: 1,000 mcg Dexamethasone (Dexamethasone) Confirm Administered Dose 4 mg .ROUTE .STK-MED ONE Stop: 07/16/18 07:50 Docusate Sodium (Colace) 100 mg PO BID [facility] Last Admin: 07/25/18 10:46 Dose: Not Given Fentanyl (Sublimaze) Confirm Administered Dose 100 mcg .ROUTE .STK-MED ONE Stop: 07/16/18 10:18 Fentanyl (Sublimaze) 100 mcg IVPUSH ONETIME ONE Stop: 07/16/18 11:20 Last Admin: 07/16/18 11:25 Dose: 100 mcg Fentanyl Citrate (Fentanyl) Confirm Administered Dose 500 mcg .ROUTE .STK-MED ONE Stop: 07/16/18 07:51 Furosemide (Lasix) 20 mg IVPUSH ONETIME ONE Stop: 07/18/18 17:56 Last Admin: 07/18/18 18:28 Dose: Not Given Furosemide (Lasix) 10 mg IVPUSH ONETIME ONE Stop: 07/18/18 17:57 Last Admin: 07/18/18 18:28 Dose: 10 mg Furosemide (Lasix) 10 mg IVPUSH ONETIME ONE Stop: 07/19/18 08:01 Last Admin: 07/19/18 08:17 Dose: 10 mg Furosemide (Lasix) 40 mg IVPUSH ONETIME STA Stop: 07/20/18 08:55 Last Admin: 07/20/18 08:59 Dose: 40 mg Gabapentin (Neurontin) 300 mg PO ONETIME ONE Stop: 07/16/18 06:16 Last Admin: 07/16/18 06:28 Dose: 300 mg Glycopyrrolate (Robinul) Confirm Administered Dose 1 mg .ROUTE .STK-MED ONE Stop: 07/16/18 07:50 Haloperidol Lactate (Haldol) 2 - 4 mg IVPUSH Q2H PRN PRN Reason: Agitation Last Admin: 07/25/18 21:19 Dose: 4 mg Haloperidol Lactate (Haldol) 4 mg IM ONETIME ONE Stop: 07/25/18 12:47 Last Admin: 07/25/18 13:04 Dose: 4 mg Hydromorphone HCl (Dilaudid Diather[employer] 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 15 Mg In Ns 30 Ml) 0 mg IV ASDIRECTED PRN; Protocol PRN Reason: [employer] PAIN CONTROL Last Admin: 07/18/18 00:33 Dose: 15 mg Hydromorphone HCl (Dilaudid) 0.5 mg IVPUSH Q2H PRN PRN Reason: pain Last Admin: 07/28/18 01:51 Dose: 0.5 mg Hydroxyzine HCl (Vistaril) 100 mg IM ONETIME ONE Stop: 07/16/18 11:14 Last Admin: 07/16/18 11:18 Dose: 100 mg Hydroxyzine HCl (Vistaril) 100 mg IM Q4H PRN PRN Reason: pain Last Admin: 07/20/18 16:29 Dose: 100 mg Cefoxitin Sodium 2 gm/ Sodium (Chloride) 50 mls @ 100 mls/hr IV ONETIME ONE Stop: 07/16/18 08:29 Last Admin: 07/16/18 07:57 Dose: 100 mls/hr Dextrose/Lactated Ringer's (Dextrose 5%-Lactated Ringers) 1,000 mls @ 100 mls/ hr IV ASDIRECTED [facility] Last Admin: 07/16/18 06:29 Dose: 100 mls/hr Ketamine HCl 50 mg/ Sodium (Chloride) 50 mls @ 17 mls/hr IV ASDIRECTED [facility] Lactated Ringer's (Ringers, Lactated) Confirm Administered Dose 1,000 mls @ as directed .ROUTE .STK-MED ONE Stop: 07/16/18 10:32 Dextrose/Lactated Ringer's (Dextrose 5%-Lactated Ringers) 1,000 mls @ 150 mls/ hr IV ASDIRECTED [facility] Last Admin: 07/17/18 01:03 Dose: 150 mls/hr Multivitamins/Minerals 10 ml/Chromium/Copper/Manganese/Seleni/Zn 1 ml/ Dextrose/ Lactated Ringer's 1,011 mls @ 150 mls/hr IV DAILY@1600 [facility] Last Admin: 07/18/18 16:05 Dose: 150 mls/hr Cefoxitin Sodium 2 gm/ Sodium (Chloride) 50 mls @ 100 mls/hr IV Q6H [facility] Stop: 07/17/18 22:29 Last Admin: 07/17/18 22:50 Dose: 100 mls/hr Ferric Sodium Gluconate Complex 250 mg/ Sodium Chloride 120 mls @ 60 mls/hr IV Q24H [facility] Stop: 07/17/18 19:59 Last Admin: 07/17/18 18:00 Dose: 60 mls/hr Lactated Ringer's (Ringers, Lactated) 500 mls @ 999 mls/hr IV ASDIRECTED [facility] Stop: 07/16/18 15:31 Last Admin: 07/16/18 15:15 Dose: 999 mls/hr Lactated Ringer's (Ringers, Lactated) 500 mls @ 999 mls/hr IV ASDIRECTED [facility] Stop: 07/16/18 17:31 Last Admin: 07/16/18 17:00 Dose: 999 mls/hr Magnesium Sulfate 2 gm/ Premix 50 mls @ 25 mls/hr IV Q6H [facility] Stop: 07/19/18 05:59 Last Admin: 07/19/18 04:02 Dose: 25 mls/hr Dextrose/Lactated Ringer's (Dextrose 5%-Lactated Ringers) 1,000 mls @ 100 mls/ hr IV ASDIRECTED [facility] Last Admin: 07/18/18 22:44 Dose: 100 mls/hr Albumin Human (Albumin 25%) 25 gm in 100 mls @ 25 mls/hr IV ONETIME ONE Stop: 07/19/18 23:59 Last Admin: 07/19/18 20:42 Dose: 25 mls/hr Albumin Human (Albumin 25%) 25 gm in 100 mls @ 25 mls/hr IV ONETIME ONE Stop: 07/20/18 04:00 Last Admin: 07/20/18 01:21 Dose: 25 mls/hr Sodium Chloride (Normal Saline) 1,000 mls @ 80 mls/hr IV ASDIRECTED [facility] Last Admin: 07/20/18 05:42 Dose: 80 mls/hr Albumin Human (Albumin 25%) 25 gm in 100 mls @ 25 mls/hr IV DAILY [facility] Stop: 07/22/18 12:59 Last Admin: 07/22/18 09:02 Dose: 25 mls/hr Albumin Human (Albumin 25%) 25 gm in 100 mls @ 25 mls/hr IV Q24H [facility] Stop: 07/22/18 16:59 Albumin Human (Albumin 25%) 25 gm in 100 mls @ 25 mls/hr IV Q24H [facility] Stop: 07/22/18 16:59 Last Admin: 07/22/18 14:00 Dose: 25 mls/hr Sodium Chloride (Normal Saline) 1,000 mls @ 500 mls/hr IV ASDIRECTED [facility] Stop: 07/20/18 21:46 Last Admin: 07/20/18 19:47 Dose: 500 mls/hr Sodium Chloride (Normal Saline) 1,000 mls @ 250 mls/hr IV ASDIRECTED [facility] Stop: 07/21/18 02:31 Last Admin: 07/20/18 22:49 Dose: 250 mls/hr Potassium Chloride 20 meq/ (Sodium Chloride) 110 mls @ 55 mls/hr IV Q2H [facility] Stop: 07/21/18 14:59 Potassium Chloride 20 meq/Lidocaine HCl 2 ml/ Sodium Chloride 112 mls @ 56 mls/ hr IV Q2H [facility] Stop: 07/21/18 14:59 Last Admin: 07/21/18 15:25 Dose: 56 mls/hr Acetaminophen 1,000 mg/ Premix 100 mls @ 400 mls/hr IV NOW ONE Stop: 07/21/18 09:14 Last Admin: 07/21/18 09:43 Dose: 400 mls/hr Potassium Chloride/Dextrose/Sod Cl (D5 1/2 Ns W/ 20 Meq/L Kcl) 1,000 mls @ 60 mls/hr IV ASDIRECTED [facility] Multivitamins/Minerals 10 ml/Thiamine HCl 100 mg/ Chromium/Copper/Manganese/ Seleni/Zn 1 ml/ Potassium Chloride/Dextrose/Sod Cl 1,012 mls @ 60 mls/hr IV ONETIME ONE Stop: 07/23/18 06:51 Last Admin: 07/22/18 14:01 Dose: Not Given Magnesium Sulfate 2 gm/ Premix 50 mls @ 25 mls/hr IV Q6H [facility] Stop: 07/25/18 05:59 Last Admin: 07/25/18 04:25 Dose: 25 mls/hr Potassium Phosphate 22.5 mmole (/ Sodium Chloride) 257.5 mls @ 65 mls/hr IV Q4H [facility] Stop: 07/22/18 16:58 Last Admin: 07/22/18 13:59 Dose: 65 mls/hr Ampicillin Sodium/Sulbactam (Sodium 1.5 gm/ Sodium Chloride) 50 mls @ 100 mls/ hr IV Q6H [facility] Last Admin: 07/24/18 04:10 Dose: 100 mls/hr Lactated Ringer's (Ringers, Lactated) 1,000 mls @ 500 mls/hr IV ASDIRECTED [facility] Last Admin: 07/22/18 16:00 Dose: 500 mls/hr Lactated Ringer's (Ringers, Lactated) 1,000 mls @ [facility] Stop: 07/22/18 22:59 Last Admin: 07/22/18 19:33 Dose: 250 mls/hr Lactated Ringer's (Ringers, Lactated) 1,000 mls @ 125 [facility] Last Admin: 07/22/18 23:01 Dose: 125 mls/hr Potassium Chloride/Dextrose/Sod Cl (D5 1/2 Ns W/ 20 Meq/L Kcl) 1,000 mls @ 60 [facility]ls[facility] Last Admin: 07/28/18 07:59 Dose: 60 mls/hr Multivitamins/Minerals 10 ml/Thiamine HCl 100 mg/ Chromium/Copper/Manganese/ Seleni/Zn 1 ml/ Potassium Chloride/Dextrose/Sod Cl 1,012 mls @ 60 mls/hr IV DAILY@1600 [facility] Last Admin: 07/27/18 15:26 Dose: 60 mls/hr Lactated Ringer's (Ringers, Lactated) 1,000 mls @ 500 mls/hr IV ONETIME ONE Stop: 07/23/18 22:18 Last Admin: 07/23/18 20:35 Dose: 500 mls/hr Lactated Ringer's (Ringers, Lactated) 1,000 mls @ 60 [facility] Last Admin: 07/23/18 22:37 Dose: 60 mls/hr Potassium Phosphate 22.5 mmole (/ Sodium Chloride) 257.5 mls @ 65 mls/hr IV Q4H [facility] Stop: 07/24/18 17:28 Last Admin: 07/24/18 14:23 Dose: 65 mls/hr Lactated Ringer's (Ringers, Lactated) 1,000 mls @ 500 mls/hr IV ASDIRECTED [facility] Stop: 07/24/18 19:14 Last Admin: 07/24/18 17:33 Dose: 500 mls/hr Lactated Ringer's (Ringers, Lactated) 1,000 mls @ 250 mls/hr IV ASDIRECTED [facility] Stop: 07/24/18 21:14 Lactated Ringer's (Ringers, Lactated) 1,000 mls @ 250 mls/hr IV ONETIME ONE Stop: 07/25/18 00:59 Last Admin: 07/24/18 21:13 Dose: 250 mls/hr Potassium Phosphate 22.5 mmole (/ Sodium Chloride) 257.5 mls @ 86 mls/hr IV Q3H [facility] Stop: 07/25/18 15:59 Last Admin: 07/25/18 16:36 Dose: 86 mls/hr Magnesium Sulfate 2 gm/ Premix 50 mls @ 12.5 mls/hr IV Q6H [facility] Stop: 07/27/18 19:59 Last Admin: 07/27/18 15:24 Dose: 12.5 mls/hr Ketamine HCl (Ketalar) 28 mg IV ASDIRECTED [facility] Loperamide HCl (Imodium) 2 mg PO Q4H PRN PRN Reason: Diarrhea Loperamide HCl (Imodium) 4 mg PO ONETIME ONE Stop: 07/25/18 17:48 Last Admin: 07/25/18 18:13 Dose: 4 mg Lorazepam (Ativan) 0.5 mg IVPUSH Q4H PRN PRN Reason: Anxiety Last Admin: 07/21/18 16:05 Dose: 0.5 mg Lorazepam (Ativan) 0 mg IV ASDIRECTED [facility]; Protocol Last Admin: 07/27/18 23:51 Dose: 2 mg Metoclopramide HCl (Reglan) 10 mg IVPUSH Q6H [facility] Last Admin: 07/25/18 10:47 Dose: Not Given Naloxone HCl (Narcan) 0.1 mg IV ASDIRECTED PRN PRN Reason: decreased respiratory rate Neostigmine Methylsulfate (Neostigmine) Confirm Administered Dose 5 mg .ROUTE .STK-MED ONE Stop: 07/16/18 07:50 Ondansetron HCl (Zofran) Confirm Administered Dose 4 mg .ROUTE .STK-MED ONE Stop: 07/16/18 07:50 Ondansetron HCl (Zofran) 4 mg IVPUSH Q4H PRN PRN Reason: Nausea/Vomiting Last Admin: 07/21/18 06:46 Dose: 4 mg Pantoprazole Sodium (Protonix Iv) 40 mg IVPUSH Q24H [facility] Last Admin: 07/17/18 16:29 Dose: 40 mg Propofol (Diprivan 20 Ml) Confirm Administered Dose 200 mg .ROUTE .STK-MED ONE Stop: 07/16/18 07:50 Rocuronium [place] (Zemuron) Confirm Administered Dose 50 mg .ROUTE .STK-MED ONE Stop: 07/16/18 07:50 Scopolamine (Transderm-Scop) 1.5 mg TOP ONETIME ONE Stop: 07/16/18 06:16 Last Admin: 07/16/18 06:28 Dose: 1.5 mg Senna/Docusate Sodium (Senna Plus) 2 tab PO DAILY [facility] Last Admin: 07/25/18 10:47 Dose: Not Given Sodium Chloride (Saline Flush) 10 ml IV ASDIRECTED PRN 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 Succinylcholine Chloride (Quelicin) Confirm Administered Dose 200 mg .ROUTE .STK -MED ONE Stop: 07/16/18 07:50 Tamsulosin HCl (Flomax) 0.4 mg PO ONETIME ONE Stop: 07/19/18 09:01 Last Admin: 07/19/18 08:16 Dose: 0.4 mg Thiamine HCl (Vitamin B-1) 100 mg IM DAILY [facility] Last Admin: 07/28/18 08:28 Dose: 100 mg - Exam Quality Assessment: No: Supplemental Oxygen General: Alert, Oriented, Cooperative, No Acute Distress HEENT: Pupils Equal Lungs: Clear to Auscultation, Normal Respiratory Effort Cardiovascular: Regular Rhythm, Tachycardia GI/Abdominal Exam: Soft, No Distention Extremities: No Pedal Edema. No: Increased Warmth Skin: Warm, Dry Psy/Mental Status: Alert, Depressed - Problem List Review Problem List Initiated/Reviewed/Updated: Yes - My Orders Last 24 Hours: My Active Orders 07/28/18 10:48 Albuterol/Ipratropium [DuoNeb 3.0-0.5 MG/3 ML] 3 ml INH QIDRT PRN 07/28/18 15:38 Haloperidol [Haldol] 5 mg PO Q6H PRN Central Line PICC Discontinue [OM.PC] Routine 07/29/18 09:00 Thiamine [Vitamin B-1] 100 mg PO DAILY 07/29/18 09:32 PT Evaluation and Treatment [CONS] Routine - Plan Plan:: ASSESSMENT AND RECOMMENDATIONS ACUTE ALCOHOL WITHDRAWAL WITH DELIRIUM - delirium and agitation seemed to finally have resolved. More interactive again today. Still impulsive and very unsteady on her feet. -Alcohol withdrawal protocol (PO preferred) -Haldol as needed in addition to lorazepam -Supplement thiamine and folate -Physical therapy HYPOXIC AND HYPERCAPNIC RESPIRATORY COMPROMISE - secondary to sedation with hypoventilation. Respiratory status has been stable but she has not required supplemental oxygen. -Continue use of OXIMETRY and capnography to monitor respiratory status -Supplement oxygen when needed DIARRHEA - much better. -Probiotic therapy twice daily HYPONATREMIA - resolved ACUTE KIDNEY INJURY - resolved. -Saline lock IV MILD HYPOTHYROIDISM - TSH mildly elevated and free T4 mildly decreased. -Continue low dose levothyroxine (50 mcg) -recheck levels in 4-6 weeks POSTOPERATIVE ILEUS - doing well. -NG-tube removed -Management per Dr. Gonsalez STATUS POST TOTAL ABDOMINAL HYSTERECTOMY AND BSO - pain well-controlled. -Postoperative care per Dr. Gonsalez Disposition - I would anticipate transfer out of the intensive care unit tomorrow Jim Correia MD
[2018-07-29] MEDS: Pantoprazole 40 MG Tab.CR PO SCH (16:54)
[2018-07-29] MEDS: Tamsulosin 0.4 MG Cap.ER PO SCH (20:36)
[2018-07-30] MEDS: Acetaminophen/oxyCODONE 325-5 MG Tab PO PRN ×3 (03:59→20:41)
[2018-07-30] MEDS: Folic Acid 1 MG Tab PO SCH (08:15)
[2018-07-30] MEDS: Lactobacillus Rhamnosus GG (Probiotic) Cap PO SCH ×2 (08:15→20:38)
[2018-07-30] MEDS: Levothyroxine 50 MCG Tab PO SCH (08:15)
[2018-07-30] MEDS: Gabapentin 300 MG Cap PO SCH ×3 (08:16→20:37)
[2018-07-30] MEDS: Thiamine 100 MG Tab PO SCH (08:16)
--- NOTE | 2018-07-30 08:48 | PCM.PN ---
- General Info Date of Service: 07/30/18 Subjective Update: There were no acute events overnight. The patient is much more alert and interactive this morning. Abdominal pain is well controlled. No complaints of nausea. Bowels are moving normally. She does not feel short of breath. Strength is steadily improving. She is still somewhat unsteady on her feet but much better than yesterday. Alcohol withdrawal has completely resolved. Functional Status: Reports: Pain Controlled, Tolerating Diet - Review of Systems General: Reports: Weakness Neurological: Denies: Confusion - Patient Data Vitals - Most Recent: Last Vital Signs Temp 36.9 C 07/30/18 07:37 Pulse 92 07/30/18 07:37 Resp 18 07/30/18 07:37 BP 122/77 07/30/18 07:37 Pulse Ox 92 L 07/30/18 04:00 Orthostatic Blood Pressure [ 130/74 Supine] Orthostatic Blood Pressure [ 125/83 Standing] Orthostatic Blood Pressure [ 136/87 Sitting] Weight - Most Recent: 91.172 kg I&O - Last 24 Hours: Intake & Output 07/29/18 07/30/18 07/30/18 22:59 06:59 14:59 Intake Total 1400 840 Balance 1400 840 Med Orders - Current: Current Medications Albuterol/Ipratropium (Duoneb 3.0-0.5 Mg/3 Ml) 3 ml INH QIDRT PRN PRN Reason: Shortness of Breath Bisacodyl (Dulcolax) 10 mg PO BID PRN PRN Reason: Constipation Docusate Sodium (Colace) 100 mg PO BID PRN PRN Reason: Constipation Folic Acid (Folic Acid) 1 mg PO DAILY [facility] Last Admin: 07/30/18 08:15 Dose: 1 mg Gabapentin (Neurontin) 300 mg PO TID [facility] Last Admin: 07/30/18 08:16 Dose: 300 mg Lactobacillus Rhamnosus (Culturelle) 1 cap PO BID [facility] Last Admin: 07/30/18 08:15 Dose: 1 cap Levothyroxine Sodium (Synthroid) 50 mcg PO ACBREAKFAST [facility] Last Admin: 07/30/18 08:15 Dose: 50 mcg Ondansetron HCl (Zofran Odt) 4 mg PO Q4H PRN PRN Reason: Nausea/Vomiting Last Admin: 07/20/18 04:05 Dose: 4 mg Oxycodone/Acetaminophen (Percocet 325-5 Mg) 1 - 2 tab PO Q4H PRN PRN Reason: paiin Last Admin: 07/30/18 03:59 Dose: 2 tab Tamsulosin HCl (Flomax) 0.4 mg PO BEDTIME [facility] Last Admin: 07/29/18 20:36 Dose: 0.4 mg Thiamine HCl (Vitamin B-1) 100 mg PO DAILY [facility] Last Admin: 07/30/18 08:16 Dose: 100 mg Discontinued Medications Acetaminophen (Tylenol Extra Strength) 1,000 mg PO ONETIME ONE Stop: 07/16/18 06:16 Last Admin: 07/16/18 06:28 Dose: 1,000 mg Acetaminophen (Tylenol) 650 mg RECTAL Q4H PRN PRN Reason: Fever Last Admin: 07/24/18 14:27 Dose: 650 mg Albuterol/Ipratropium (Duoneb 3.0-0.5 Mg/3 Ml) 3 ml NEB ONETIME ONE Stop: 07/16/18 07:01 Last Admin: 07/16/18 06:28 Dose: 3 ml Albuterol/Ipratropium (Duoneb 3.0-0.5 Mg/3 Ml) 3 ml INH QIDRT [facility] Last Admin: 07/28/18 10:45 Dose: 3 ml Albuterol/Ipratropium (Duoneb 3.0-0.5 Mg/3 Ml) 3 ml INH ASDIRECTED PRN PRN Reason: BREATHING Bisacodyl (Dulcolax) 10 mg PO BID [facility] Last Admin: 07/25/18 10:47 Dose: Not Given Bisacodyl (Dulcolax) 10 mg RECTAL BID [facility] Last Admin: 07/21/18 11:54 Dose: 10 mg Bisacodyl (Dulcolax) 10 mg RECTAL ONETIME PRN PRN Reason: IF NO RESULT FROM AM DOSE Stop: 07/21/18 19:00 Bumetanide (Bumex) 4 mg IVPUSH ONETIME ONE Stop: 07/20/18 15:46 Last Admin: 07/20/18 15:52 Dose: 4 mg Bumetanide (Bumex) 2 mg IVPUSH NOW ONE Stop: 07/21/18 08:01 Last Admin: 07/21/18 08:20 Dose: 2 mg Bumetanide (Bumex) 2 mg IVPUSH ONETIME ONE Stop: 07/22/18 10:16 Last Admin: 07/22/18 10:53 Dose: 2 mg Bumetanide (Bumex) 2 mg IVPUSH ONETIME ONE Stop: 07/23/18 08:21 Last Admin: 07/23/18 08:36 Dose: 2 mg Cefoxitin Sodium (Mefoxin) Confirm Administered Dose 2 gm .ROUTE .STK-MED ONE Stop: 07/16/18 07:02 Last Admin: 07/16/18 08:41 Dose: 2 gm Ropivacaine 45 ml/Dexamethasone 8 mg/Epinephrine HCl 0.4 mg/ Sodium Chloride 32.6 ml 0 ml NERVRT ASDIRECTED [facility] Last Admin: 07/16/18 08:58 Dose: 80 syringe Cyanocobalamin (Vitamin B12) 1,000 mcg IM ONETIME ONE Stop: 07/16/18 16:01 Last Admin: 07/16/18 17:53 Dose: 1,000 mcg Dexamethasone (Dexamethasone) Confirm Administered Dose 4 mg .ROUTE .STK-MED ONE Stop: 07/16/18 07:50 Docusate Sodium (Colace) 100 mg PO BID [facility] Last Admin: 07/25/18 10:46 Dose: Not Given Fentanyl (Sublimaze) Confirm Administered Dose 100 mcg .ROUTE .STK-MED ONE Stop: 07/16/18 10:18 Fentanyl (Sublimaze) 100 mcg IVPUSH ONETIME ONE Stop: 07/16/18 11:20 Last Admin: 07/16/18 11:25 Dose: 100 mcg Fentanyl Citrate (Fentanyl) Confirm Administered Dose 500 mcg .ROUTE .STK-MED ONE Stop: 07/16/18 07:51 Furosemide (Lasix) 20 mg IVPUSH ONETIME ONE Stop: 07/18/18 17:56 Last Admin: 07/18/18 18:28 Dose: Not Given Furosemide (Lasix) 10 mg IVPUSH ONETIME ONE Stop: 07/18/18 17:57 Last Admin: 07/18/18 18:28 Dose: 10 mg Furosemide (Lasix) 10 mg IVPUSH ONETIME ONE Stop: 07/19/18 08:01 Last Admin: 07/19/18 08:17 Dose: 10 mg Furosemide (Lasix) 40 mg IVPUSH ONETIME STA Stop: 07/20/18 08:55 Last Admin: 07/20/18 08:59 Dose: 40 mg Gabapentin (Neurontin) 300 mg PO ONETIME ONE Stop: 07/16/18 06:16 Last Admin: 07/16/18 06:28 Dose: 300 mg Glycopyrrolate (Robinul) Confirm Administered Dose 1 mg .ROUTE .STK-MED ONE Stop: 07/16/18 07:50 Haloperidol (Haldol) 5 mg PO Q6H PRN PRN Reason: Agitation Haloperidol Lactate (Haldol) 2 - 4 mg IVPUSH Q2H PRN PRN Reason: Agitation Last Admin: 07/25/18 21:19 Dose: 4 mg Haloperidol Lactate (Haldol) 4 mg IM ONETIME ONE Stop: 07/25/18 12:47 Last Admin: 07/25/18 13:04 Dose: 4 mg Hydromorphone HCl (Dilaudid Health Education Assistant 15 Mg In Ns 30 Ml) 0 mg IV ASDIRECTED PRN; Protocol PRN Reason: SSIS ARCHITECT PAIN CONTROL Last Admin: 07/18/18 00:33 Dose: 15 mg Hydromorphone HCl (Dilaudid) 0.5 mg IVPUSH Q2H PRN PRN Reason: pain Last Admin: 07/28/18 01:51 Dose: 0.5 mg Hydroxyzine HCl (Vistaril) 100 mg IM ONETIME ONE Stop: 07/16/18 11:14 Last Admin: 07/16/18 11:18 Dose: 100 mg Hydroxyzine HCl (Vistaril) 100 mg IM Q4H PRN PRN Reason: pain Last Admin: 07/20/18 16:29 Dose: 100 mg Cefoxitin Sodium 2 gm/ Sodium (Chloride) 50 mls @ 100 mls/hr IV ONETIME ONE Stop: 07/16/18 08:29 Last Admin: 07/16/18 07:57 Dose: 100 mls/hr Dextrose/Lactated Ringer's (Dextrose 5%-Lactated Ringers) 1,000 mls @ 100 mls/ hr IV ASDIRECTED [facility] Last Admin: 07/16/18 06:29 Dose: 100 mls/hr Ketamine HCl 50 mg/ Sodium (Chloride) 50 mls @ 17 mls/hr IV ASDIRECTED [facility] Lactated Ringer's (Ringers, Lactated) Confirm Administered Dose 1,000 mls @ as directed .ROUTE .STK-MED ONE Stop: 07/16/18 10:32 Dextrose/Lactated Ringer's (Dextrose 5%-Lactated Ringers) 1,000 mls @ 150 mls/ hr IV ASDIRECTED [facility] Last Admin: 07/17/18 01:03 Dose: 150 mls/hr Multivitamins/Minerals 10 ml/Chromium/Copper/Manganese/Seleni/Zn 1 ml/ Dextrose/ Lactated Ringer's 1,011 mls @ 150 mls/hr IV DAILY@1600 [facility] Last Admin: 07/18/18 16:05 Dose: 150 mls/hr Cefoxitin Sodium 2 gm/ Sodium (Chloride) 50 mls @ 100 mls/hr IV Q6H [facility] Stop: 07/17/18 22:29 Last Admin: 07/17/18 22:50 Dose: 100 mls/hr Ferric Sodium Gluconate Complex 250 mg/ Sodium Chloride 120 mls @ 60 mls/hr IV Q24H [facility] Stop: 07/17/18 19:59 Last Admin: 07/17/18 18:00 Dose: 60 mls/hr Lactated Ringer's (Ringers, Lactated) 500 mls @ 999 mls/hr [facility] Stop: 07/16/18 15:31 Last Admin: 07/16/18 15:15 Dose: 999 mls/hr Lactated Ringer's (Ringers, Lactated) 500 mls @ 999 mls/hr [facility] Stop: 07/16/18 17:31 Last Admin: 07/16/18 17:00 Dose: 999 mls/hr Magnesium Sulfate 2 gm/ Premix 50 mls @ 25 mls/hr IV Q6H [facility] Stop: 07/19/18 05:59 Last Admin: 07/19/18 04:02 Dose: 25 mls/hr Dextrose/Lactated Ringer's (Dextrose 5%-Lactated Ringers) 1,000 mls @ 100 mls/ hr IV ASDIRECTED [facility] Last Admin: 07/18/18 22:44 Dose: 100 mls/hr Albumin Human (Albumin 25%) 25 gm in 100 mls @ 25 mls/hr IV ONETIME ONE Stop: 07/19/18 23:59 Last Admin: 07/19/18 20:42 Dose: 25 mls/hr Albumin Human (Albumin 25%) 25 gm in 100 mls @ 25 mls/hr IV ONETIME ONE Stop: 07/20/18 04:00 Last Admin: 07/20/18 01:21 Dose: 25 mls/hr Sodium Chloride (Normal Saline) 1,000 mls @ 80 mls/hr IV ASDIRECTED [facility] Last Admin: 07/20/18 05:42 Dose: 80 mls/hr Albumin Human (Albumin 25%) 25 gm in 100 mls @ 25 mls/hr IV DAILY [facility] Stop: 07/22/18 12:59 Last Admin: 07/22/18 09:02 Dose: 25 mls/hr Albumin Human (Albumin 25%) 25 gm in 100 mls @ 25 mls/hr IV Q24H [facility] Stop: 07/22/18 16:59 Albumin Human (Albumin 25%) 25 gm in 100 mls @ 25 mls/hr IV Q24H [facility] Stop: 07/22/18 16:59 Last Admin: 07/22/18 14:00 Dose: 25 mls/hr Sodium Chloride (Normal Saline) 1,000 mls @ 500 mls/hr IV ASDIRECTED [facility] Stop: 07/20/18 21:46 Last Admin: 07/20/18 19:47 Dose: 500 mls/hr Sodium Chloride (Normal Saline) 1,000 mls @ 250 mls/hr IV ASDIRECTED [facility] Stop: 07/21/18 02:31 Last Admin: 07/20/18 22:49 Dose: 250 mls/hr Potassium Chloride 20 meq/ (Sodium Chloride) 110 mls @ 55 mls/hr IV Q2H [facility] Stop: 07/21/18 14:59 Potassium Chloride 20 meq/Lidocaine HCl 2 ml/ Sodium Chloride 112 mls @ 56 mls/ hr IV Q2H [facility] Stop: 07/21/18 14:59 Last Admin: 07/21/18 15:25 Dose: 56 mls/hr Acetaminophen 1,000 mg/ Premix 100 mls @ 400 mls/hr IV NOW ONE Stop: 07/21/18 09:14 Last Admin: 07/21/18 09:43 Dose: 400 mls/hr Potassium Chloride/Dextrose/Sod Cl (D5 1/2 Ns W/ 20 Meq/L Kcl) 1,000 mls @ 60 mls/hr IV ASDIRECTED [facility] Multivitamins/Minerals 10 ml/Thiamine HCl 100 mg/ Chromium/Copper/Manganese/ Seleni/Zn 1 ml/ Potassium Chloride/Dextrose/Sod Cl 1,012 mls @ 60 mls/hr IV ONETIME ONE Stop: 07/23/18 06:51 Last Admin: 07/22/18 14:01 Dose: Not Given Magnesium Sulfate 2 gm/ Premix 50 mls @ 25 mls/hr IV Q6H [facility] Stop: 07/25/18 05:59 Last Admin: 07/25/18 04:25 Dose: 25 mls/hr Potassium Phosphate 22.5 mmole (/ Sodium Chloride) 257.5 mls @ 65 mls/hr IV Q4H [facility] Stop: 07/22/18 16:58 Last Admin: 07/22/18 13:59 Dose: 65 mls/hr Ampicillin Sodium/Sulbactam (Sodium 1.5 gm/ Sodium Chloride) 50 mls @ 100 mls/ hr IV Q6H [facility] Last Admin: 07/24/18 04:10 Dose: 100 mls/hr Lactated Ringer's (Ringers, Lactated) 1,000 mls @ 500 mls/hr [facility] Last Admin: 07/22/18 16:00 Dose: 500 mls/hr Lactated Ringer's (Ringers, Lactated) 1,000 mls @ 250 mls/hr [facility] Stop: 07/22/18 22:59 Last Admin: 07/22/18 19:33 Dose: 250 mls/hr Lactated Ringer's (Ringers, Lactated) 1,000 mls @ 125 mls/hr [facility] Last Admin: 07/22/18 23:01 Dose: 125 mls/hr Potassium Chloride/Dextrose/Sod Cl (D5 1/2 Ns W/ 20 Meq/L Kcl) 1,000 mls @ 60 mls/hr [facility] Last Admin: 07/28/18 07:59 Dose: 60 mls/hr Multivitamins/Minerals 10 ml/Thiamine HCl 100 mg/ Chromium/Copper/Manganese/ Seleni/Zn 1 ml/ Potassium Chloride/Dextrose/Sod Cl 1,012 mls @ 60 mls/hr IV DAILY@1600 [facility] Last Admin: 07/27/18 15:26 Dose: 60 mls/hr Lactated Ringer's (Ringers, Lactated) 1,000 mls @ 500 mls/hr IV ONETIME ONE Stop: 07/23/18 22:18 Last Admin: 07/23/18 20:35 Dose: 500 mls/hr Lactated Ringer's (Ringers, Lactated) 1,000 mls @ 60 mls/hr IV ASDIRECTED [facility] Last Admin: 07/23/18 22:37 Dose: 60 mls/hr Potassium Phosphate 22.5 mmole (/ Sodium Chloride) 257.5 mls @ 65 mls/hr IV Q4H [facility] Stop: 07/24/18 17:28 Last Admin: 07/24/18 14:23 Dose: 65 mls/hr Lactated Ringer's (Ringers, Lactated) 1,000 mls @ 500 mls/hr IV ASDIRECTED [facility] Stop: 07/24/18 19:14 Last Admin: 07/24/18 17:33 Dose: 500 mls/hr Lactated Ringer's (Ringers, Lactated) 1,000 mls @ 250 mls/hr IV ASDIRECTED [facility] Stop: 07/24/18 21:14 Lactated Ringer's (Ringers, Lactated) 1,000 mls @ 250 mls/hr IV ONETIME ONE Stop: 07/25/18 00:59 Last Admin: 07/24/18 21:13 Dose: 250 mls/hr Potassium Phosphate 22.5 mmole (/ Sodium Chloride) 257.5 mls @ 86 mls/hr IV Q3H [facility] Stop: 07/25/18 15:59 Last Admin: 07/25/18 16:36 Dose: 86 mls/hr Magnesium Sulfate 2 gm/ Premix 50 mls @ 12.5 mls/hr IV Q6H [facility] Stop: 07/27/18 19:59 Last Admin: 07/27/18 15:24 Dose: 12.5 mls/hr Ketamine HCl (Ketalar) 28 mg IV ASDIRECTED [facility] Loperamide HCl (Imodium) 2 mg PO Q4H PRN PRN Reason: Diarrhea Loperamide HCl (Imodium) 4 mg PO ONETIME ONE Stop: 07/25/18 17:48 Last Admin: 07/25/18 18:13 Dose: 4 mg Loperamide HCl (Imodium) 2 mg PO Q4H PRN PRN Reason: Diarrhea Lorazepam (Ativan) 0.5 mg IVPUSH Q4H PRN PRN Reason: Anxiety Last Admin: 07/21/18 16:05 Dose: 0.5 mg Lorazepam (Ativan) 0 mg IV ASDIRECTED [facility]; Protocol Last Admin: 07/27/18 23:51 Dose: 2 mg Lorazepam (Ativan) 0 mg PO ASDIRECTED [facility]; Protocol Last Admin: 07/29/18 00:23 Dose: 1 mg Metoclopramide HCl (Reglan) 10 mg IVPUSH Q6H [facility] Last Admin: 07/25/18 10:47 Dose: Not Given Naloxone HCl (Narcan) 0.1 mg IV ASDIRECTED PRN PRN Reason: decreased respiratory rate Neostigmine Methylsulfate (Neostigmine) Confirm Administered Dose 5 mg .ROUTE .STK-MED ONE Stop: 07/16/18 07:50 Ondansetron HCl (Zofran) Confirm Administered Dose 4 mg .ROUTE .STK-MED ONE Stop: 07/16/18 07:50 Ondansetron HCl (Zofran) 4 mg IVPUSH Q4H PRN PRN Reason: Nausea/Vomiting Last Admin: 07/21/18 06:46 Dose: 4 mg Pantoprazole Sodium (Protonix Iv) 40 mg IVPUSH Q24H [facility] Last Admin: 07/17/18 16:29 Dose: 40 mg Pantoprazole Sodium (Protonix) 40 mg PO Q24H [facility] Last Admin: 07/29/18 16:54 Dose: 40 mg Propofol (Diprivan 20 Ml) Confirm Administered Dose 200 mg .ROUTE .STK-MED ONE Stop: 07/16/18 07:50 Rocuronium Roberta (Zemuron) Confirm Administered Dose 50 mg .ROUTE .STK-MED ONE Stop: 07/16/18 07:50 Scopolamine (Transderm-Scop) 1.5 mg TOP ONETIME ONE Stop: 07/16/18 06:16 Last Admin: 07/16/18 06:28 Dose: 1.5 mg Senna/Docusate Sodium (Senna Plus) 2 tab PO DAILY [facility] Last Admin: 07/25/18 10:47 Dose: Not Given Sodium Chloride (Saline Flush) 10 ml IV ASDIRECTED PRN 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 Succinylcholine Chloride (Quelicin) Confirm Administered Dose 200 mg .ROUTE .STK -MED ONE Stop: 07/16/18 07:50 Tamsulosin HCl (Flomax) 0.4 mg PO ONETIME ONE Stop: 07/19/18 09:01 Last Admin: 07/19/18 08:16 Dose: 0.4 mg Thiamine HCl (Vitamin B-1) 100 mg IM DAILY [facility] Last Admin: 07/28/18 08:28 Dose: 100 mg - Exam Quality Assessment: No: Supplemental Oxygen General: Alert, Oriented, Cooperative, No Acute Distress Lungs: Normal Respiratory Effort Cardiovascular: Regular Rate, Regular Rhythm GI/Abdominal Exam: Soft, No Distention Extremities: No Pedal Edema Skin: Warm, Dry Wound/Incisions: Healing Well (right 1/3 of the abdominal wound is open slightly ), No Drainage Psy/Mental Status: Alert, Normal Affect. No: Agitated - Problem List Review Problem List Initiated/Reviewed/Updated: Yes - My Orders Last 24 Hours: My Active Orders 07/29/18 09:00 Thiamine [Vitamin B-1] 100 mg PO DAILY 07/29/18 09:32 PT Evaluation and Treatment [CONS] Routine 07/29/18 12:09 Transfer Patient (Change bed) [ADT] Routine 07/29/18 12:11 Discontinue Telemetry Monitoring [Cardiac Monitoring Discontinue] [RC] Click to Edit 07/30/18 08:43 Ibuprofen [Motrin] 600 mg PO Q6H PRN 07/30/18 09:00 Pantoprazole [ProTONIX] 40 mg PO DAILY - Plan Plan:: ASSESSMENT AND RECOMMENDATIONS ACUTE ALCOHOL WITHDRAWAL WITH DELIRIUM - delirium and agitation finally have resolved. Seems to be back to baseline. Strength and gait steadily improving. -Supplement thiamine and folate -Physical therapy HYPOXIC AND HYPERCAPNIC RESPIRATORY COMPROMISE - secondary to sedation with hypoventilation. Respiratory status has normalized. -Supplement oxygen when needed DIARRHEA - resolved. -Probiotic therapy twice daily HYPONATREMIA - resolved ACUTE KIDNEY INJURY - resolved. -Saline lock IV MILD HYPOTHYROIDISM - TSH mildly elevated and free T4 mildly decreased. -Continue low dose levothyroxine (50 mcg) -recheck levels in 4-6 weeks POSTOPERATIVE ILEUS - resolved. -NG-tube removed -Management per Dr. Gonsalez STATUS POST TOTAL ABDOMINAL HYSTERECTOMY AND BSO - pain well-controlled. -Postoperative care per Dr. Gonsalez Disposition - I would anticipate discharge to home after the hospital stay, possibly in the next day or 2 Jim Correia MD
[2018-07-30] MEDS: Pantoprazole 40 MG Tab.CR PO SCH (11:16)
[2018-07-30] MEDS: Nystatin Topical Powder 15 GM Bottle TOP SCH ×2 (16:06→20:38)
[2018-07-30] MEDS: Tamsulosin 0.4 MG Cap.ER PO SCH (20:38)
[2018-07-31] MEDS: Acetaminophen/oxyCODONE 325-5 MG Tab PO PRN ×2 (02:49→08:09)
[2018-07-31] MEDS: Ibuprofen 600 MG Tab PO PRN ×2 (05:30→19:22)
[2018-07-31] MEDS: Pantoprazole 40 MG Tab.CR PO SCH (07:41)
[2018-07-31] MEDS: Levothyroxine 50 MCG Tab PO SCH (07:42)
[2018-07-31] MEDS: Lactobacillus Rhamnosus GG (Probiotic) Cap PO SCH ×2 (08:07→21:20)
[2018-07-31] MEDS: Folic Acid 1 MG Tab PO SCH (08:08)
[2018-07-31] MEDS: Gabapentin 300 MG Cap PO SCH ×3 (08:08→21:20)
[2018-07-31] MEDS: Thiamine 100 MG Tab PO SCH (08:09)
[2018-07-31] MEDS: Nystatin Topical Powder 15 GM Bottle TOP SCH ×3 (08:53→21:21)
--- NOTE | 2018-07-31 10:15 | PCM.PN ---
- General Info Date of Service: 07/31/18 Subjective Update: There were no acute events overnight. Patient is feeling better again today. Abdominal pain is well-controlled. She has been having normal bowel movements. Appetite has been good. She does intermittently have some incontinence of urine. Strength is steadily improving but she does still remain somewhat unsteady on her feet. Functional Status: Reports: Pain Controlled, Tolerating Diet - Review of Systems General: Reports: Weakness Neurological: Reports: Difficulty Walking (gait instability) - Patient Data Vitals - Most Recent: Last Vital Signs Temp 36.5 C 07/31/18 07:23 Pulse 96 07/31/18 07:23 Resp 16 07/31/18 07:23 BP 144/96 H 07/31/18 07:23 Pulse Ox 100 07/31/18 07:23 Orthostatic Blood Pressure [ 130/74 Supine] Orthostatic Blood Pressure [ 125/83 Standing] Orthostatic Blood Pressure [ 136/87 Sitting] Weight - Most Recent: 91.172 kg I&O - Last 24 Hours: Intake & Output 07/30/18 07/31/18 07/31/18 22:59 06:59 14:59 Intake Total 2400 800 236 Output Total 350 1050 100 Balance 2050 -250 136 Med Orders - Current: Current Medications Albuterol/Ipratropium (Duoneb 3.0-0.5 Mg/3 Ml) 3 ml INH QIDRT PRN PRN Reason: Shortness of Breath Bisacodyl (Dulcolax) 10 mg PO BID PRN PRN Reason: Constipation Docusate Sodium (Colace) 100 mg PO BID PRN PRN Reason: Constipation Folic Acid (Folic Acid) 1 mg PO DAILY [facility] Last Admin: 07/31/18 08:08 Dose: 1 mg Gabapentin (Neurontin) 300 mg PO TID [facility] Last Admin: 07/31/18 08:08 Dose: 300 mg Ibuprofen (Motrin) 600 mg PO Q6H PRN PRN Reason: Pain (mild 1-3) Last Admin: 07/31/18 05:30 Dose: 600 mg Lactobacillus Rhamnosus (Culturelle) 1 cap PO BID [facility] Last Admin: 07/31/18 08:07 Dose: 1 cap Levothyroxine Sodium (Synthroid) 50 mcg PO [facility] Last Admin: 07/31/18 07:42 Dose: 50 mcg Nystatin (Nystop) 0 gm TOP TID [facility] Last Admin: 07/31/18 08:53 Dose: 1 applic Ondansetron HCl (Zofran Odt) 4 mg PO Q4H PRN PRN Reason: Nausea/Vomiting Last Admin: 07/20/18 04:05 Dose: 4 mg Oxycodone/Acetaminophen (Percocet 325-5 Mg) 1 - 2 tab PO Q4H PRN PRN Reason: paiin Last Admin: 07/31/18 08:09 Dose: 1 tab Pantoprazole Sodium (Protonix) 40 mg [facility] Last Admin: 07/31/18 07:41 Dose: 40 mg Tamsulosin HCl (Flomax) 0.4 mg PO BEDTIME [facility] Last Admin: 07/30/18 20:38 Dose: 0.4 mg Thiamine HCl (Vitamin B-1) 100 mg PO DAILY [facility] Last Admin: 07/31/18 08:09 Dose: 100 mg Discontinued Medications Acetaminophen (Tylenol Extra Strength) 1,000 mg PO ONETIME ONE Stop: 07/16/18 06:16 Last Admin: 07/16/18 06:28 Dose: 1,000 mg Acetaminophen (Tylenol) 650 mg RECTAL Q4H PRN PRN Reason: Fever Last Admin: 07/24/18 14:27 Dose: 650 mg Albuterol/Ipratropium (Duoneb 3.0-0.5 Mg/3 Ml) 3 ml NEB ONETIME ONE Stop: 07/16/18 07:01 Last Admin: 07/16/18 06:28 Dose: 3 ml Albuterol/Ipratropium (Duoneb 3.0-0.5 Mg/3 Ml) 3 ml INH QIDRT [facility] Last Admin: 07/28/18 10:45 Dose: 3 ml Albuterol/Ipratropium (Duoneb 3.0-0.5 Mg/3 Ml) 3 ml INH ASDIRECTED PRN PRN Reason: BREATHING Bisacodyl (Dulcolax) 10 mg PO BID [facility] Last Admin: 07/25/18 10:47 Dose: Not Given Bisacodyl (Dulcolax) 10 mg RECTAL BID [facility] Last Admin: 07/21/18 11:54 Dose: 10 mg Bisacodyl (Dulcolax) 10 mg RECTAL ONETIME PRN PRN Reason: IF NO RESULT FROM AM DOSE Stop: 07/21/18 19:00 Bumetanide (Bumex) 4 mg IVPUSH ONETIME ONE Stop: 07/20/18 15:46 Last Admin: 07/20/18 15:52 Dose: 4 mg Bumetanide (Bumex) 2 mg IVPUSH NOW ONE Stop: 07/21/18 08:01 Last Admin: 07/21/18 08:20 Dose: 2 mg Bumetanide (Bumex) 2 mg IVPUSH ONETIME ONE Stop: 07/22/18 10:16 Last Admin: 07/22/18 10:53 Dose: 2 mg Bumetanide (Bumex) 2 mg IVPUSH ONETIME ONE Stop: 07/23/18 08:21 Last Admin: 07/23/18 08:36 Dose: 2 mg Cefoxitin Sodium (Mefoxin) Confirm Administered Dose 2 gm .ROUTE .STK-MED ONE Stop: 07/16/18 07:02 Last Admin: 07/16/18 08:41 Dose: 2 gm Ropivacaine 45 ml/Dexamethasone 8 mg/Epinephrine HCl 0.4 mg/ Sodium Chloride 32.6 ml 0 ml NERVRT ASDIRECTED [facility] Last Admin: 07/16/18 08:58 Dose: 80 syringe Cyanocobalamin (Vitamin B12) 1,000 mcg IM ONETIME ONE Stop: 07/16/18 16:01 Last Admin: 07/16/18 17:53 Dose: 1,000 mcg Dexamethasone (Dexamethasone) Confirm Administered Dose 4 mg .ROUTE .STK-MED ONE Stop: 07/16/18 07:50 Docusate Sodium (Colace) 100 mg PO BID [facility] Last Admin: 07/25/18 10:46 Dose: Not Given Fentanyl (Sublimaze) Confirm Administered Dose 100 mcg .ROUTE .STK-MED ONE Stop: 07/16/18 10:18 Fentanyl (Sublimaze) 100 mcg IVPUSH ONETIME ONE Stop: 07/16/18 11:20 Last Admin: 07/16/18 11:25 Dose: 100 mcg Fentanyl Citrate (Fentanyl) Confirm Administered Dose 500 mcg .ROUTE .STK-MED ONE Stop: 07/16/18 07:51 Furosemide (Lasix) 20 mg IVPUSH ONETIME ONE Stop: 07/18/18 17:56 Last Admin: 07/18/18 18:28 Dose: Not Given Furosemide (Lasix) 10 mg IVPUSH ONETIME ONE Stop: 07/18/18 17:57 Last Admin: 07/18/18 18:28 Dose: 10 mg Furosemide (Lasix) 10 mg IVPUSH ONETIME ONE Stop: 07/19/18 08:01 Last Admin: 07/19/18 08:17 Dose: 10 mg Furosemide (Lasix) 40 mg IVPUSH ONETIME STA Stop: 07/20/18 08:55 Last Admin: 07/20/18 08:59 Dose: 40 mg Gabapentin (Neurontin) 300 mg PO ONETIME ONE Stop: 07/16/18 06:16 Last Admin: 07/16/18 06:28 Dose: 300 mg Glycopyrrolate (Robinul) Confirm Administered Dose 1 mg .ROUTE .STK-MED ONE Stop: 07/16/18 07:50 Haloperidol (Haldol) 5 mg PO Q6H PRN PRN Reason: Agitation Haloperidol Lactate (Haldol) 2 - 4 mg IVPUSH Q2H PRN PRN Reason: Agitation Last Admin: 07/25/18 21:19 Dose: 4 mg Haloperidol Lactate (Haldol) 4 mg IM ONETIME ONE Stop: 07/25/18 12:47 Last Admin: 07/25/18 13:04 Dose: 4 mg Hydromorphone HCl (Dilaudid Pump Service Supervisor 15 Mg In Ns 30 Ml) 0 mg IV ASDIRECTED PRN; Protocol PRN Reason: INSURANCE VERIFIER PAIN CONTROL Last Admin: 07/18/18 00:33 Dose: 15 mg Hydromorphone HCl (Dilaudid) 0.5 mg IVPUSH Q2H PRN PRN Reason: pain Last Admin: 07/28/18 01:51 Dose: 0.5 mg Hydroxyzine HCl (Vistaril) 100 mg IM ONETIME ONE Stop: 07/16/18 11:14 Last Admin: 07/16/18 11:18 Dose: 100 mg Hydroxyzine HCl (Vistaril) 100 mg IM Q4H PRN PRN Reason: pain Last Admin: 07/20/18 16:29 Dose: 100 mg Cefoxitin Sodium 2 gm/ Sodium (Chloride) 50 mls @ 100 mls/hr IV ONETIME ONE Stop: 07/16/18 08:29 Last Admin: 07/16/18 07:57 Dose: 100 mls/hr Dextrose/Lactated Ringer's (Dextrose 5%-Lactated Ringers) 1,000 mls @ 100 mls/ hr IV ASDIRECTED [facility] Last Admin: 07/16/18 06:29 Dose: 100 mls/hr Ketamine HCl 50 mg/ Sodium (Chloride) 50 mls @ 17 mls/hr IV ASDIRECTED [facility] Lactated Ringer's (Ringers, Lactated) Confirm Administered Dose 1,000 mls @ as directed .ROUTE .K-MED ONE Stop: 07/16/18 10:32 Dextrose/Lactated Ringer's (Dextrose 5%-Lactated Ringers) 1,000 mls @ 150 mls/ hr IV ASDIRECTED [facility] Last Admin: 07/17/18 01:03 Dose: 150 mls/hr Multivitamins/Minerals 10 ml/Chromium/Copper/Manganese/Seleni/Zn 1 ml/ Dextrose/ Lactated Ringer's 1,011 mls @ 150 mls/hr IV DAILY@1600 [facility] Last Admin: 07/18/18 16:05 Dose: 150 mls/hr Cefoxitin Sodium 2 gm/ Sodium (Chloride) 50 mls @ 100 mls/hr IV Q6H [facility] Stop: 07/17/18 22:29 Last Admin: 07/17/18 22:50 Dose: 100 mls/hr Ferric Sodium Gluconate Complex 250 mg/ Sodium Chloride 120 mls @ 60 mls/hr IV Q24H [facility] Stop: 07/17/18 19:59 Last Admin: 07/17/18 18:00 Dose: 60 mls/hr Lactated Ringer's (Ringers, Lactated) 500 mls @ 999 mls/hr IV ASDIRECTED [facility] Stop: 07/16/18 15:31 Last Admin: 07/16/18 15:15 Dose: 999 mls/hr Lactated Ringer's (Ringers, Lactated) 500 mls @ 999 mls/hr IV ASDIRECTED [facility] Stop: 07/16/18 17:31 Last Admin: 07/16/18 17:00 Dose: 999 mls/hr Magnesium Sulfate 2 gm/ Premix 50 mls @ 25 mls/hr IV Q6H [facility] Stop: 07/19/18 05:59 Last Admin: 07/19/18 04:02 Dose: 25 mls/hr Dextrose/Lactated Ringer's (Dextrose 5%-Lactated Ringers) 1,000 mls @ 100 mls/ hr IV ASDIRECTED [facility] Last Admin: 07/18/18 22:44 Dose: 100 mls/hr Albumin Human (Albumin 25%) 25 gm in 100 mls @ 25 mls/hr IV ONETIME ONE Stop: 07/19/18 23:59 Last Admin: 07/19/18 20:42 Dose: 25 mls/hr Albumin Human (Albumin 25%) 25 gm in 100 mls @ 25 mls/hr IV ONETIME ONE Stop: 07/20/18 04:00 Last Admin: 07/20/18 01:21 Dose: 25 mls/hr Sodium Chloride (Normal Saline) 1,000 mls @ 80 mls/hr IV ASDIRECTED [facility] Last Admin: 07/20/18 05:42 Dose: 80 mls/hr Albumin Human (Albumin 25%) 25 gm in 100 mls @ 25 mls/hr IV DAILY [facility] Stop: 07/22/18 12:59 Last Admin: 07/22/18 09:02 Dose: 25 mls/hr Albumin Human (Albumin 25%) 25 gm in 100 mls @ 25 mls/hr IV Q24H [facility] Stop: 07/22/18 16:59 Albumin Human (Albumin 25%) 25 gm in 100 mls @ 25 mls/hr IV Q24H [facility] Stop: 07/22/18 16:59 Last Admin: 07/22/18 14:00 Dose: 25 mls/hr Sodium Chloride (Normal Saline) 1,000 mls @ 500 mls/hr IV ASDIRECTED [facility] Stop: 07/20/18 21:46 Last Admin: 07/20/18 19:47 Dose: 500 mls/hr Sodium Chloride (Normal Saline) 1,000 mls @ 250 mls/hr IV ASDIRECTED [facility] Stop: 07/21/18 02:31 Last Admin: 07/20/18 22:49 Dose: 250 mls/hr Potassium Chloride 20 meq/ (Sodium Chloride) 110 mls @ 55 mls/hr IV Q2H [facility] Stop: 07/21/18 14:59 Potassium Chloride 20 meq/Lidocaine HCl 2 ml/ Sodium Chloride 112 mls @ 56 mls/ hr IV Q2H [facility] Stop: 07/21/18 14:59 Last Admin: 07/21/18 15:25 Dose: 56 mls/hr Acetaminophen 1,000 mg/ Premix 100 mls @ 400 mls/hr IV NOW ONE Stop: 07/21/18 09:14 Last Admin: 07/21/18 09:43 Dose: 400 mls/hr Potassium Chloride/Dextrose/Sod Cl (D5 1/2 Ns W/ 20 Meq/L Kcl) 1,000 mls @ 60 mls/hr IV ASDIRECTED [facility] Multivitamins/Minerals 10 ml/Thiamine HCl 100 mg/ Chromium/Copper/Manganese/ Seleni/Zn 1 ml/ Potassium Chloride/Dextrose/Sod Cl 1,012 mls @ 60 mls/hr IV ONETIME ONE Stop: 07/23/18 06:51 Last Admin: 07/22/18 14:01 Dose: Not Given Magnesium Sulfate 2 gm/ Premix 50 mls @ 25 mls/hr IV Q6H [facility] Stop: 07/25/18 05:59 Last Admin: 07/25/18 04:25 Dose: 25 mls/hr Potassium Phosphate 22.5 mmole (/ Sodium Chloride) 257.5 mls @ 65 mls/hr IV Q4H [facility] Stop: 07/22/18 16:58 Last Admin: 07/22/18 13:59 Dose: 65 mls/hr Ampicillin Sodium/Sulbactam (Sodium 1.5 gm/ Sodium Chloride) 50 mls @ 100 mls/ hr IV Q6H [facility] Last Admin: 07/24/18 04:10 Dose: 100 mls/hr Lactated Ringer's (Ringers, Lactated) 1,000 mls @ 500 mls/hr IV ASDIRECTED [facility] Last Admin: 07/22/18 16:00 Dose: 500 mls/hr Lactated Ringer's (Ringers, Lactated) 1,000 mls @ 250 mls/hr IV ASDIRECTED [facility] Stop: 07/22/18 22:59 Last Admin: 07/22/18 19:33 Dose: 250 mls/hr Lactated Ringer's (Ringers, Lactated) 1,000 mls @ 125 mls/hr IV ASDIRECTED [facility] Last Admin: 07/22/18 23:01 Dose: 125 mls/hr Potassium Chloride/Dextrose/Sod Cl (D5 1/2 Ns W/ 20 Meq/L Kcl) 1,000 mls @ 60 mls/hr IV ASDIRECTED [facility] Last Admin: 07/28/18 07:59 Dose: 60 mls/hr Multivitamins/Minerals 10 ml/Thiamine HCl 100 mg/ Chromium/Copper/Manganese/ Seleni/Zn 1 ml/ Potassium Chloride/Dextrose/Sod Cl 1,012 mls @ 60 mls/hr IV DAILY@1600 [facility] Last Admin: 07/27/18 15:26 Dose: 60 mls/hr Lactated Ringer's (Ringers, Lactated) 1,000 mls @ 500 mls/hr IV ONETIME ONE Stop: 07/23/18 22:18 Last Admin: 07/23/18 20:35 Dose: 500 mls/hr Lactated Ringer's (Ringers, Lactated) 1,000 mls @ 60 mls/hr IV ASDIRECTED [facility] Last Admin: 07/23/18 22:37 Dose: 60 mls/hr Potassium Phosphate 22.5 mmole (/ Sodium Chloride) 257.5 mls @ 65 mls/hr IV Q4H [facility] Stop: 07/24/18 17:28 Last Admin: 07/24/18 14:23 Dose: 65 mls/hr Lactated Ringer's (Ringers, Lactated) 1,000 mls @ 500 mls/hr IV ASDIRECTED [facility] Stop: 07/24/18 19:14 Last Admin: 07/24/18 17:33 Dose: 500 mls/hr Lactated Ringer's (Ringers, Lactated) 1,000 mls @ 250 mls/hr IV ASDIRECTED [facility] Stop: 07/24/18 21:14 Lactated Ringer's (Ringers, Lactated) 1,000 mls @ 250 mls/hr IV ONETIME ONE Stop: 07/25/18 00:59 Last Admin: 07/24/18 21:13 Dose: 250 mls/hr Potassium Phosphate 22.5 mmole (/ Sodium Chloride) 257.5 mls @ 86 mls/hr IV Q3H [facility] Stop: 07/25/18 15:59 Last Admin: 07/25/18 16:36 Dose: 86 mls/hr Magnesium Sulfate 2 gm/ Premix 50 mls @ 12.5 mls/hr IV Q6H [facility] Stop: 07/27/18 19:59 Last Admin: 07/27/18 15:24 Dose: 12.5 mls/hr Ketamine HCl (Ketalar) 28 mg IV ASDIRECTED [facility] Loperamide HCl (Imodium) 2 mg PO Q4H PRN PRN Reason: Diarrhea Loperamide HCl (Imodium) 4 mg PO ONETIME ONE Stop: 07/25/18 17:48 Last Admin: 07/25/18 18:13 Dose: 4 mg Loperamide HCl (Imodium) 2 mg PO Q4H PRN PRN Reason: Diarrhea Lorazepam (Ativan) 0.5 mg IVPUSH Q4H PRN PRN Reason: Anxiety Last Admin: 07/21/18 16:05 Dose: 0.5 mg Lorazepam (Ativan) 0 mg IV ASDIRECTED [facility]; Protocol Last Admin: 07/27/18 23:51 Dose: 2 mg Lorazepam (Ativan) 0 mg PO ASDIRECTED [facility]; Protocol Last Admin: 07/29/18 00:23 Dose: 1 mg Metoclopramide HCl (Reglan) 10 mg IVPUSH Q6H [facility] Last Admin: 07/25/18 10:47 Dose: Not Given Naloxone HCl (Narcan) 0.1 mg IV ASDIRECTED PRN PRN Reason: decreased respiratory rate Neostigmine Methylsulfate (Neostigmine) Confirm Administered Dose 5 mg .ROUTE .STK-MED ONE Stop: 07/16/18 07:50 Ondansetron HCl (Zofran) Confirm Administered Dose 4 mg .ROUTE .STK-MED ONE Stop: 07/16/18 07:50 Ondansetron HCl (Zofran) 4 mg IVPUSH Q4H PRN PRN Reason: Nausea/Vomiting Last Admin: 07/21/18 06:46 Dose: 4 mg Pantoprazole Sodium (Protonix Iv) 40 mg IVPUSH Q24H [facility] Last Admin: 07/17/18 16:29 Dose: 40 mg Pantoprazole Sodium (Protonix) 40 mg PO Q24H [facility] Last Admin: 07/29/18 16:54 Dose: 40 mg Propofol (Diprivan 20 Ml) Confirm Administered Dose 200 mg .ROUTE .STK-MED ONE Stop: 07/16/18 07:50 Rocuronium [place] (Zemuron) Confirm Administered Dose 50 mg .ROUTE .STK-MED ONE Stop: 07/16/18 07:50 Scopolamine (Transderm-Scop) 1.5 mg TOP ONETIME ONE Stop: 07/16/18 06:16 Last Admin: 07/16/18 06:28 Dose: 1.5 mg Senna/Docusate Sodium (Senna Plus) 2 tab PO DAILY [facility] Last Admin: 07/25/18 10:47 Dose: Not Given Sodium Chloride (Saline Flush) 10 ml IV ASDIRECTED PRN PRN Reason: AGRICULT[employer] CHEMIST Succinylcholine Chloride (Quelicin) Confirm Administered Dose 200 mg .ROUTE .STK -MED ONE Stop: 07/16/18 07:50 Tamsulosin HCl (Flomax) 0.4 mg PO ONETIME ONE Stop: 07/19/18 09:01 Last Admin: 07/19/18 08:16 Dose: 0.4 mg Thiamine HCl (Vitamin B-1) 100 mg IM DAILY [facility] Last Admin: 07/28/18 08:28 Dose: 100 mg - Exam Quality Assessment: No: Supplemental Oxygen General: Alert, Oriented, Cooperative, No Acute Distress Lungs: Normal Respiratory Effort Cardiovascular: Regular Rate, Regular Rhythm GI/Abdominal Exam: Soft, No Distention Extremities: No Pedal Edema Psy/Mental Status: Alert, Normal Affect - Problem List Review Problem List Initiated/Reviewed/Updated: Yes - My Orders Last 24 Hours: My Active Orders 07/30/18 15:00 Nystatin [Nystop] 0 gm TOP TID - Plan Plan:: ASSESSMENT AND RECOMMENDATIONS ACUTE ALCOHOL WITHDRAWAL WITH DELIRIUM - delirium and agitation finally have resolved. Seems to be back to baseline. Strength and gait steadily improving but still unsteady on her feet and somewhat impulsive. -Supplement thiamine and folate -Additional Physical therapy HYPOXIC AND HYPERCAPNIC RESPIRATORY COMPROMISE - secondary to sedation with hypoventilation. Respiratory status has normalized. -Supplement oxygen when needed DIARRHEA - resolved. -Probiotic therapy twice daily HYPONATREMIA - resolved ACUTE KIDNEY INJURY - resolved. -Saline lock IV MILD HYPOTHYROIDISM - TSH mildly elevated and free T4 mildly decreased. -Continue low dose levothyroxine (50 mcg) -recheck levels in 4-6 weeks POSTOPERATIVE ILEUS - resolved. -NG-tube removed -Management per Dr. Gonsalez STATUS POST TOTAL ABDOMINAL HYSTERECTOMY AND BSO - pain well-controlled. -Postoperative care per Dr. Gonsalez Disposition - I would anticipate discharge to home after the hospital stay, possibly tomorrow or maybe the next day. She would benefit from follow-up with [facility] for management of mental illness and chemical dependency Jim Correia MD
[2018-07-31] MEDS: Tamsulosin 0.4 MG Cap.ER PO SCH (21:21)
[2018-08-01] MEDS: Acetaminophen/oxyCODONE 325-5 MG Tab PO PRN (04:58)
[2018-08-01 07:52] VITALS: BP 139/93
[2018-08-01] MEDS: Pantoprazole 40 MG Tab.CR PO SCH (08:35)
[2018-08-01] MEDS: Gabapentin 300 MG Cap PO SCH (08:35)
[2018-08-01] MEDS: Lactobacillus Rhamnosus GG (Probiotic) Cap PO SCH (08:35)
[2018-08-01] MEDS: Folic Acid 1 MG Tab PO SCH (08:35)
[2018-08-01] MEDS: Thiamine 100 MG Tab PO SCH (08:36)
[2018-08-01] MEDS: Levothyroxine 50 MCG Tab PO SCH (08:36)
[2018-08-01] MEDS: Nystatin Topical Powder 15 GM Bottle TOP SCH (08:37)
[2018-08-01] MEDS ORDERED: Ketoconazole 2% Crm 30 GM Tube TOP SCH (09:00)
--- NOTE | 2018-08-01 11:39 | DISCH ---
FINAL DIAGNOSES: 1. Severe menometrorrhagia, resulting in marked anemia secondary to fibroid uterus. 2. Focal pelvic endometriosis. 3. Extensive intraabdominal and pelvic adhesions. 4. Postoperative alcohol withdrawal with delirium. 5. Hypoxic and hypercapnic respiratory compromise, requiring a period of BiPAP. 6. Diarrhea, resolved. 7. Hyponatremia secondary to over ingestion of water. 8. Acute kidney injury, resolved. 9. Mild hypothyroidism. 10.Postoperative ileus, resolved. OPERATIVE PROCEDURE: This was done on 07/16/2018, exploratory laparotomy with: 1. Total abdominal hysterectomy with bilateral salpingo-oophorectomy. 2. Fulguration of pelvic endometriosis. 3. Placement of Interceed mesh to limit recurrent adhesion formation. SUMMARY: This is a 43-year-old female, presenting with ongoing severe vaginal bleeding, coming in with hemoglobin of 7. She received 2 units of packed RBCs, but she continued to have active bleeding, and after discussion of treatment options, she wished to proceed with hysterectomy. She also preferred to have both tubes and ovaries removed at this time. A total abdominal hysterectomy with bilateral salpingo-oophorectomy was performed on the day of admission, along with pelvic endometriosis ablation and placement of some Interceed mesh. The patient's postoperative course was fairly complicated with the patient developing alcohol withdrawal and the above noted problem list. These all had resolved, and at this point her mental status appeared to be back to baseline with the alcohol withdrawal. The patient will be contacting [facility] regarding outpatient treatment and we will try to have her follow up . The patient was also noted to be mildly hypothyroid during the course of the procedure and we are going to place her on Synthroid, and we will obtain a followup TSH somewhere in the range of 8 weeks. Her followup in addition to her calling [facility] will be with Dr. Gonsalez at [facility] on 08/10/2018. We will get a CBC with that appointment. Her Pfannenstiel incision and small open area in the right lateral aspect which had dressing with some 4x4s. The entire wound does have some fungal overgrowth and she will be started at home with ketoconazole cream for treatment of that, otherwise her preadmission medications plus; 1. Percocet 5/325 one tablet q.4 hours p.r.n. pain #30. 2. Synthroid 50 mcg p.o. daily #90. 3. Probiotic capsules 2 daily x1 month. 4. She is also instructed to take ibuprofen 400 to 600 mg q.i.d. p.r.n.
--- NOTE | 2018-08-01 13:45 | PN ---
DATE OF SERVICE: 07/31/2018 The patient is now quite alert and eating very well. Still having some urinary incontinence and refuses sleeping. We will check postvoid residual and make sure she is not retaining urine. Otherwise, she will be ready for discharge home tomorrow. While the discharge planning, discussed the patient's postoperative counseling options. We are going to give her a flyer for one of the local counseling centers and she prefers an outpatient approach to that counseling. She will likely be ready for discharge home tomorrow. Errol Gonsalez MD /[id number]
== END 2018-08-01 10:21 | disposition home or self-care (01) | DRG 513 ==
LOC: JP.SDSSCHI 05:55 → JP.SDS 05:55 → EDSTATUS 07:15 → JP.MS 10:45 → UNDOADMIN 10:45 → JP.SDSSCHI 10:45 → JP.ICU 07-20 19:45 → JP.MS 07-30 13:42
PROVIDERS: ADMIT Surgery; ATTEND Hospitalist
PROC: 0UT90ZZ Resection of Uterus, Open Approach (ICD-10-PCS; principal; 2018-07-16)
PROC: 0UT20ZZ Resection of Bilateral Ovaries, Open Approach (ICD-10-PCS; 2018-07-16)
PROC: 0UT70ZZ Resection of Bilateral Fallopian Tubes, Open Approach (ICD-10-PCS; 2018-07-16)
PROC: 0D5W0ZZ Destruction of Peritoneum, Open Approach (ICD-10-PCS; 2018-07-16)
PROC: 3E0M05Z Introduction of Adhesion Barrier into Peritoneal Cavity, Open Approach (ICD-10-PCS; 2018-07-16)
PROC: 30233N1 Transfusion of Nonautologous Red Blood Cells into Peripheral Vein, Percutaneous Approach (ICD-10-PCS; 2018-07-16)
PROC: 30233N1 Transfusion of Nonautologous Red Blood Cells into Peripheral Vein, Percutaneous Approach (ICD-10-PCS; 2018-07-17)
PROC: 5A09457 Assistance with Respiratory Ventilation, 24-96 Consecutive Hours, Continuous Positive Airway Pressure (ICD-10-PCS; 2018-07-24)
PROC: 30233N1 Transfusion of Nonautologous Red Blood Cells into Peripheral Vein, Percutaneous Approach (ICD-10-PCS; 2018-07-24)
PROC: 02HV33Z Insertion of Infusion Device into Superior Vena Cava, Percutaneous Approach (ICD-10-PCS; 2018-07-25)
PROC: B548ZZA Ultrasonography of Superior Vena Cava, Guidance (ICD-10-PCS; 2018-07-25)
DX: N92.1 Excessive and frequent menstruation with irregular cycle (principal); D50.9 Iron deficiency anemia, unspecified; D25.1 Intramural leiomyoma of uterus; D25.2 Subserosal leiomyoma of uterus; N80.8 Other endometriosis; K91.2 Postsurgical malabsorption, not elsewhere classified; K66.0 Peritoneal adhesions (postprocedural) (postinfection); R60.9 Edema, unspecified; E86.9 Volume depletion, unspecified; E88.09 Other disorders of plasma-protein metabolism, not elsewhere classified; K56.7 Ileus, unspecified; N17.9 Acute kidney failure, unspecified; F10.231 Alcohol dependence with withdrawal delirium; I95.81 Postprocedural hypotension; W19.XXXA Unspecified fall, initial encounter; Y92.230 Patient room in hospital as the place of occurrence of the external cause; Z98.84 Bariatric surgery status; Z98.0 Intestinal bypass and anastomosis status; E53.8 Deficiency of other specified B group vitamins; E50.9 Vitamin A deficiency, unspecified; E55.9 Vitamin D deficiency, unspecified; Z68.33 Body mass index [BMI] 33.0-33.9, adult; E83.42 Hypomagnesemia; F17.210 Nicotine dependence, cigarettes, uncomplicated; E87.1 Hypo-osmolality and hyponatremia; Z88.1 Allergy status to other antibiotic agents; R45.1 Restlessness and agitation; R45.87 Impulsiveness; Z91.81 History of falling; J96.01 Acute respiratory failure with hypoxia; J96.02 Acute respiratory failure with hypercapnia; R19.7 Diarrhea, unspecified; E87.6 Hypokalemia; E03.9 Hypothyroidism, unspecified; R32 Unspecified urinary incontinence; B36.9 Superficial mycosis, unspecified
CPT/HCPCS: 36415; 36430; 36600; 51702; 51798; 71045; 74021; 74176; 76705; 80048; 80053; 81001; 82803; 83605; 83735; 83880; 83930; 84100; 84132; 84295; 84300; 84439; 84443; 85025; 85027; 86850; 86900; 86901; 86920; 86922; 87040; 87086; 87493; 88307; 94640; 94660; 94762; 97110-GP; 97140-GP; 97163-GP; 97164-GP; 97530-GP; 97535-GP; A9270-GY; C1751; C9113; J0131; J0171; J0287; J0330; J0694; J1100; J1170; J1630; J1940; J2001; J2060; J2405; J2704; J2710; J2765; J2795; J2916; J3010; J3410; J3411; J3420; J3475; J3480; J3490; J7030; J7042; J7050; J7120; J7620-GY; P9016; P9047

== ENCOUNTER 2018-08-12 08:51 | Inpatient (IN) | payer BC ==
[2018-08-12] MEDS ORDERED: Acetaminophen 500 MG Tab PO ONE (09:15)
[2018-08-12] MEDS ORDERED: Ketamine 500 MG/5 ML MDV IV SCH (10:00)
[2018-08-12] MEDS ORDERED: Ketamine 50 MG in Sodium Chloride 0.9% 49.5 ML IV SCH (10:00)
[2018-08-12] MEDS ORDERED: Gabapentin 300 MG Cap PO ONE (10:00)
[2018-08-12] MEDS: Dextrose 5%-Lactated Ringers 1,000 ML IV SCH ×3 (10:07→22:08)
[2018-08-12] MEDS ORDERED: cefOXitin 2 GM in Sodium Chloride 0.9% 50 ML IV ONE (10:45)
[2018-08-12] MEDS ORDERED: Midazolam 1 MG/ML 2 ML SDV ONE (11:02)
[2018-08-12] MEDS ORDERED: fentaNYL 100 MCG/2 ML SDV ONE (11:02)
[2018-08-12] MEDS ORDERED: Rocuronium 50 MG/5 ML Vial ONE (11:03)
[2018-08-12] MEDS ORDERED: Ondansetron 4 MG/2 ML SDV ONE (11:03)
[2018-08-12] MEDS ORDERED: Dexamethasone 4 MG/ML SDV ONE (11:03)
[2018-08-12] MEDS ORDERED: Neostigmine Methylsulfate 1 MG/ML 5 ML Syringe ONE (11:03)
[2018-08-12] MEDS ORDERED: Succinylcholine 200 MG/10 ML MDV ONE (11:03)
[2018-08-12] MEDS ORDERED: Glycopyrrolate 0.2 MG/ML 5 ML MDV ONE (11:03)
[2018-08-12] MEDS ORDERED: Propofol 200 MG/20 ML SDV ONE (11:03)
[2018-08-12] MEDS ORDERED: fentaNYL 250 MCG/5 ML SDV ONE ×2 (11:05→11:44)
[2018-08-12] MEDS ORDERED: Ketorolac 60 MG/2 ML SDV ONE (11:18)
[2018-08-12] MEDS ORDERED: Meropenem 500 MG SDV ONE (11:53)
[2018-08-12] MEDS ORDERED: Lactated Ringers 1,000 ML ONE (12:55)
[2018-08-12] MEDS ORDERED: Fluorescein 5 ML Vial ONE (13:03)
[2018-08-12] MEDS ORDERED: Furosemide 20 MG/2 ML VIAL ONE (13:11)
[2018-08-12] MEDS ORDERED: Ketoconazole 2% Crm 30 GM Tube TOP ONE (13:50)
[2018-08-12] MEDS ORDERED: Sugammadex Sodium 200 MG/2 ML VIAL ONE (14:03)
[2018-08-12] MEDS ORDERED: Naloxone 0.4 MG/ML SDV IV PRN (14:16)
[2018-08-12] MEDS: HYDROmorphone/Normal Saline 15 MG/30 ML PCA IV PRN (14:16)
[2018-08-12] MEDS ORDERED: Ondansetron 4 MG/2 ML SDV IVPUSH PRN (15:35)
[2018-08-12] MEDS ORDERED: Belladonna Alkaloids/Opium 16.2-30 MG Supp RECTAL PRN (15:37)
[2018-08-12] MEDS ORDERED: Albuterol/Ipratropium 3.0-0.5 MG/3 ML Neb Soln INH PRN (15:38)
[2018-08-12] MEDS: Cyclobenzaprine 10 MG Tab PO PRN (15:44)
[2018-08-12] MEDS: Pantoprazole 40 MG Vial IV SCH (17:29)
[2018-08-12] MEDS: cefOXitin 2 GM in Sodium Chloride 0.9% 50 ML IV SCH (17:30)
[2018-08-12] MEDS: Albuterol/Ipratropium 3.0-0.5 MG/3 ML Neb Soln INH SCH (22:08)
[2018-08-12] MEDS: Gabapentin 300 MG Cap PO SCH (22:08)
[2018-08-13] MEDS: cefOXitin 2 GM in Sodium Chloride 0.9% 50 ML IV SCH ×5 (00:57→23:49)
[2018-08-13] MEDS: Dextrose 5%-Lactated Ringers 1,000 ML IV SCH ×3 (05:37→20:11)
[2018-08-13] MEDS: Cyclobenzaprine 10 MG Tab PO PRN ×3 (05:52→20:05)
[2018-08-13] MEDS: Albuterol/Ipratropium 3.0-0.5 MG/3 ML Neb Soln INH SCH ×4 (08:44→20:05)
[2018-08-13] MEDS: Levothyroxine 50 MCG Tab PO SCH (09:12)
[2018-08-13] MEDS: Gabapentin 300 MG Cap PO SCH ×3 (09:12→20:09)
[2018-08-13] MEDS: Nicotine 21 MG/24 Hr Patch TRDERM SCH (14:23)
[2018-08-13] MEDS ORDERED: [UNRECOGNIZED DRUG - OTHER] PO PRN (14:27)
[2018-08-13] MEDS ORDERED: Magnesium Hydroxide 400 MG/5 ML Susp 30 ML Cup PO PRN (14:53)
[2018-08-13] MEDS: HYDROmorphone/Normal Saline 15 MG/30 ML PCA IV PRN (17:02)
[2018-08-13] MEDS: Pantoprazole 40 MG Vial IV SCH (17:28)
[2018-08-13] MEDS: [UNRECOGNIZED DRUG - OTHER] PO PRN ×3 (18:25→23:51)
[2018-08-13] MEDS: Bisacodyl 5 MG Tab PO SCH (20:07)
[2018-08-14] MEDS ORDERED: Lactated Ringers 500 ML IV SCH (04:45)
[2018-08-14] MEDS: cefOXitin 2 GM in Sodium Chloride 0.9% 50 ML IV SCH ×3 (05:58→18:05)
[2018-08-14] MEDS ORDERED: Lidocaine 1% with EPINEPHrine 1:100,000 50 ML MDV ONE (06:50)
[2018-08-14] MEDS ORDERED: Bupivacaine 0.5% 50 ML MDV ONE (06:52)
[2018-08-14] MEDS ORDERED: Meropenem 500 MG SDV ONE (06:52)
[2018-08-14] MEDS: Albuterol/Ipratropium 3.0-0.5 MG/3 ML Neb Soln INH SCH ×4 (07:10→20:13)
[2018-08-14] MEDS ORDERED: fentaNYL 100 MCG/2 ML SDV ONE (07:20)
[2018-08-14] MEDS ORDERED: Propofol 200 MG/20 ML SDV ONE ×2 (07:20→08:20)
[2018-08-14] MEDS ORDERED: Midazolam 1 MG/ML 2 ML SDV ONE (07:21)
[2018-08-14] MEDS ORDERED: Lidocaine 1% 2 ML ONE (07:23)
[2018-08-14] MEDS ORDERED: Sodium Chloride 0.9% 10 ML ONE (07:46)
[2018-08-14] MEDS: Dextrose 5%-Lactated Ringers 1,000 ML IV SCH (08:59)
[2018-08-14] MEDS ORDERED: Magnesium Hydroxide 400 MG/5 ML Susp 30 ML Cup PO PRN (09:20)
[2018-08-14] MEDS: Bisacodyl 5 MG Tab PO SCH ×2 (09:34→20:13)
[2018-08-14] MEDS: Gabapentin 300 MG Cap PO SCH ×3 (09:34→20:13)
[2018-08-14] MEDS: Nicotine 21 MG/24 Hr Patch TRDERM SCH (09:34)
[2018-08-14] MEDS: Levothyroxine 50 MCG Tab PO SCH (09:35)
[2018-08-14] MEDS: Magnesium Sulfate/Water 2 GM in Premix Bag 1 BAG IV SCH ×3 (10:18→22:04)
[2018-08-14] MEDS: Potassium Phosphates 20 MMOLE in Sodium Chloride 0.9% 250 ML IV SCH ×3 (12:15→18:08)
[2018-08-14] MEDS: [UNRECOGNIZED DRUG - OTHER] PO PRN ×2 (14:07→22:13)
[2018-08-14] MEDS: Pantoprazole 40 MG Tab.CR PO SCH (15:37)
[2018-08-14] MEDS: Cyclobenzaprine 10 MG Tab PO PRN (19:47)
[2018-08-15] MEDS: cefOXitin 2 GM in Sodium Chloride 0.9% 50 ML IV SCH ×4 (00:51→17:33)
[2018-08-15] MEDS: Cyclobenzaprine 10 MG Tab PO PRN (03:23)
[2018-08-15] MEDS: Magnesium Sulfate/Water 2 GM in Premix Bag 1 BAG IV SCH ×4 (03:24→21:24)
[2018-08-15] MEDS: Dextrose 5%-Lactated Ringers 1,000 ML IV SCH (03:27)
[2018-08-15] MEDS: hydrOXYzine HCl 100 MG/2 ML SDV IM PRN ×2 (05:12→23:00)
[2018-08-15] MEDS: Albuterol/Ipratropium 3.0-0.5 MG/3 ML Neb Soln INH SCH ×4 (07:26→21:25)
[2018-08-15] MEDS: Potassium Chloride 20 MEQ Tab.ER PO SCH (08:27)
[2018-08-15] MEDS: Levothyroxine 50 MCG Tab PO SCH (08:28)
[2018-08-15] MEDS: Gabapentin 300 MG Cap PO SCH ×3 (08:28→21:24)
[2018-08-15] MEDS: Bisacodyl 5 MG Tab PO SCH ×2 (08:28→21:25)
[2018-08-15] MEDS: Nicotine 21 MG/24 Hr Patch TRDERM SCH (08:29)
--- NOTE | 2018-08-15 08:40 | PN ---
DATE OF SERVICE: 08/13/2018 The patient has been afebrile with stable vital signs. We did discuss the alcohol withdrawal issue and will begin ej shots or something equivalent to that 6 times over the 24-hour period to avoid DTs, which extended her hospital stay by 2 weeks and probably resulted in the bladder problem, as there was quite a bit of pulling on the urinary bladder catheter during that phase. At any rate, she appears to be clinically stable. We will back down on the IV rate. We will give her a relatively small amount of clear liquids today and then proceed with delayed primary closure tomorrow. Errol Gonsalez MD /[id number]
[2018-08-15] MEDS: Potassium Phosphates 20 MMOLE in Sodium Chloride 0.9% 250 ML IV SCH ×3 (10:09→16:34)
--- NOTE | 2018-08-15 11:13 | PN ---
DATE OF SERVICE: 08/14/2018 The patient has been afebrile with stable vital signs. So far, she is not showing signs of alcohol withdrawal, receiving some ej shots during the today. She underwent a delayed primary closure today and will begin a full liquid diet and continue to aggressively work with bowel stimulation. The urine continues to flow satisfactory in the Buchanan catheter,and drain looks clear. Her albumin, magnesium, and phosphate are all low. These will be supplemented over the next 2 to 3 days. Otherwise, maximize activity and work with pulmonary toilet. Errol Gonsalez MD /[id number]
--- NOTE | 2018-08-15 11:19 | OR ---
DATE OF PROCEDURE: 08/14/2018 SURGEON: Errol Gonsalez MD PREOPERATIVE DIAGNOSIS: Open abdominal incision. POSTOPERATIVE DIAGNOSIS: Open abdominal incision. OPERATIVE PROCEDURE: Delayed primary closure of abdominal incision. ANESTHESIA: IV sedation plus local. INDICATIONS FOR PROCEDURE: The patient is 48 hours status post an open laparotomy with otherwise a contaminated case. Skin and subcutaneous tissue were felt to be high risk for wound infection if the primary closure was undertaken, therefore a delayed primary closure will be undertaken today if the wound is clean, with it now being 48 hours postop. Potential risks of the procedure including bleeding and infection were reviewed, and the patient wishes to proceed. DETAILS OF PROCEDURE: The patient was taken to the operating room and placed in a supine position. After IV sedation was administered, after the dressing was taken down, the wound was inspected and found to be clean. The wound was then prepped and draped, anesthetized with 1% lidocaine mixed with Marcaine, and irrigated with meropenem-containing saline solution. The subcutaneous tissue and subdermal tissues were closed with 3-0 and 4-0 Vicryl stitch respectively and skin with zachariah. A 10-Somali round Nima-Avalos drain was also placed in the wound and taken out through a stab wound lateral to the main incision. Bilateral transversus abdominis plane blocks were then placed using ultrasound guidance. The patient was taken to the recovery room in satisfactory condition. There were no evident complications. Errol Gonsalez MD /[id number]
--- NOTE | 2018-08-15 11:36 | PN ---
DATE OF SERVICE: 08/12/2018 SUBJECTIVE: Ewelina's pain has been controlled. She has not gone into DTs. She is getting shots of ej, which is helping. She has been up ambulating. Vital signs have been stable. She has reported increased amount of swelling from her groin down to her feet. She reports that it is swelling so much that she has fluid leaking out of her skin. REVIEW OF SYSTEMS: Remainder of review of systems negative for any pertinent positives and negatives. ASSESSMENT: 1. Marked peripheral edema. 2. 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 Date is 08/12/2018. Dr. Errol Gonsalez, surgeon. PLAN: 1. Discontinue [employer]. 2. Percocet 1 q.3 hours p.r.n. pain. 3. KCl 40 mEq p.o. 4. K-Phos 30 millimoles IV. 5. Regular diet. 6. Check with Dr. Morris Parham, hospitalist in regard to trunk and leg edema. 7. Good pulmonary toilet. We will evaluate p.r.n. or in a.m. Kathryn Wright PA-C /[id number]
[2018-08-15] MEDS ORDERED: Furosemide 20 MG/2 ML VIAL IVPUSH ONE (11:52)
--- NOTE | 2018-08-15 12:01 | PCM.CONS ---
H&P History of Present Illness - General Date of Service: 08/15/18 Admit Problem/Dx: Admission Diagnosis/Problem Admission Diagnosis/Problem Fistula Source of Information: Patient, Old Records, Provider, RN Notes Reviewed History Limitations: Reports: No Limitations - History of Present Illness Initial Comments - Free Text/Narative: Ms. Grove is a 43-year-old woman who I been asked to see by Dr. Gonsalez for further suggestions concerning management of peripheral edema. She is status post previous hysterectomy which was complicated by severe hyponatremia and severe alcohol withdrawal with acute kidney injury and respiratory compromise. 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 She had a second surgery on the with delayed primary closure on the . During her hospital stay has developed significant peripheral edema. abdomin Pain Score (Numeric/FACES): 5 - Related Data Allergies/Adverse Reactions: Allergies Allergy/AdvReac Type Severity Reaction Status Date / Time doxycycline Allergy Rash Verified 08/12/18 09:18 erythromycin base Allergy Rash Verified 08/12/18 09:18 procaine [From Novocain] Allergy Rash Verified 08/12/18 09:18 Home Medications: Home Meds Multivitamin [Multi-Vitamin Daily] 1 tab PO DAILY 12/02/15 [History] Iron,Carbonyl/Ascorbic Acid [Vitron-C Tablet] 1 each PO DAILY 08/04/16 [History] Gabapentin [Neurontin] 300 mg PO TID 07/13/18 [History] Albuterol Sulfate [Proair Respiclick] 1 - 2 puff IH Q4HR PRN 08/10/18 [History] Cholecalciferol (Vitamin D3) [Vitamin D3] 400 units PO DAILY 08/10/18 [History] Cholecalciferol (Vitamin D3) [Vitamin D] 50,000 unit PO .MON-WED-Wed08/10/18 [ History] Ciprofloxacin HCl [Cipro] 500 mg PO BID 08/10/18 [History] Cyanocobalamin (Vitamin B-12) [Vitamin B-12] 1,000 mcg SL DAILY 08/10/18 [ History] Ferrous Sulfate 325 mg PO BIDMEALS 08/10/18 [History] Levothyroxine [Synthroid] 50 mcg PO ACBREAKFAST 08/10/18 [History] Lidocaine/Prilocaine [EMLA Crm] 1 unit TOP ASDIRECTED PRN 08/10/18 [History] Tamsulosin HCl [Flomax] 0.4 mg PO DAILY 08/10/18 [History] Past Medical History HEENT History: Reports: None Respiratory History: Reports: Asthma Gastrointestinal History: Reports: GERD, Other (See Below) Other Gastrointestinal History: RNY 2002 Genitourinary History: Reports: None Other Genitourinary History: 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 fistula CLOTH SHADER History: Reports: Musculoskeletal History: Reports: Fracture Psychiatric History: Reports: Addiction Endocrine/Metabolic History: Reports: Hypothyroidism, Vitamin D Deficiency Hematologic History: Reports: Anemia, B12 Deficiency, Blood Transfusion(s), Iron Deficiency, Other (See Below) Other Hematologic History: vitamin D def - Infectious Disease History Infectious Disease History: Reports: Chicken Pox - Past Surgical History HEENT Surgical History: Reports: Oral Surgery Respiratory Surgical History: Reports: None GI Surgical History: Reports: Bariatric Procedure, Cholecystectomy, Colonoscopy , EGD Female Surgical History: Reports: Section, Hysterectomy, Tubal Ligation Endocrine Surgical History: Reports: None Musculoskeletal Surgical History: Reports: None Social & Family History - Family History Family Medical History: Noncontributory Cardiac: Reports: [place] - Tobacco Use Smoking Status *Q: Current Some Day Smoker Years of Tobacco use: 5 Packs/Tins Daily: 0.5 Used Tobacco, but Quit: No Second Hand Smoke Exposure: No - Caffeine Use Caffeine Use: Reports: Soda - Alcohol Use Days Per Week of Alcohol Use: 7 Number of Drinks Per Day: 6 Total Drinks Per Week: 42 Date of Last Drink: 08/10/18 Time of Last Drink: 18:00 - Recreational Drug Use Recreational Drug Use: No H&P Review of Systems - Review of Systems: Review Of Systems: See Below General: Reports: Weakness. Denies: Fever, Chills Pulmonary: Reports: No Symptoms Cardiovascular: Reports: Edema. Denies: Chest Pain, Palpitations, Dyspnea on Exertion, Orthopnea, PND, Lightheadedness Gastrointestinal: Reports: Abdominal Pain. Denies: Constipation, Diarrhea, Difficulty Swallowing, Distension, Nausea, Vomiting Skin: Reports: No Symptoms Exam - Exam Exam: See Below - Vital Signs Vital Signs: Last Vital Signs Temp 95.5 F 08/15/18 11:00 Pulse 105 H 08/15/18 11:00 Resp 18 08/15/18 11:00 BP 135/87 08/15/18 11:00 Pulse Ox 91 L 08/15/18 11:00 Weight: 192 lb - Exam General: Alert, Oriented, Cooperative, Mild Distress Neck: Supple, Trachea Midline, +2 Carotid Pulse wo Bruit Lungs: Clear to Auscultation, Normal Respiratory Effort Cardiovascular: Regular Rate, Regular Rhythm, Normal S1, Normal S2. No: Systolic Murmur, Diastolic Murmur GI/Abdominal Exam: Soft, Non-Tender, No Organomegaly, No Distention Extremities: Non-Tender, Pedal Edema - Patient Data Lab Results Last 24 hrs: Laboratory Results - last 24 hr 08/15/18 08/15/18 Range/Units 04:30 04:30 WBC 6.8 (4.5-11.0) K/uL RBC 3.18 L (3.30-5.50) M/uL Hgb 9.6 L (12.0-15.0) g/dL Hct 31.9 L (36.0-48.0) % MCV 100 H (80-98) fL MCH 30 (27-31) pg MCHC 30 L (32-36) % Plt Count 186 (150-400) K/uL Sodium 137 L (140-148) mmol/L Potassium 3.4 L (3.6-5.2) mmol/L Chloride 102 (100-108) mmol/L Carbon Dioxide 29 (21-32) mmol/L Anion Gap 9.4 (5.0-14.0) mmol/L BUN 2 L D (7-18) mg/dL Creatinine 0.7 (0.6-1.0) mg/dL Est Cr Clr Drug Dosing 91.32 mL/min Estimated GFR (MDRD) > 60 (>60) Glucose 91 (74-106) mg/dL Calcium 9.1 (8.5-10.1) mg/dL Phosphorus 3.1 (2.5-4.9) mg/dL Total Bilirubin 0.6 (0.2-1.0) mg/dL AST 32 (15-37) U/L ALT 25 (12-78) U/L Alkaline Phosphatase 127 H (46-116) U/L Total Protein 6.4 (6.4-8.2) g/dL Albumin 2.7 L (3.4-5.0) g/dL Globulin 3.7 H (2.3-3.5) g/dL Albumin/Globulin Ratio 0.7 L (1.2-2.2) Result Diagrams: 08/15/18 04:30 08/15/18 04:30 Consult PN Assessment/Plan Procedures: Procedures APPLY FOREARM SPLINT (11/20/17) ASSAY OF COPPER (07/13/18) ASSAY OF FERRITIN (07/13/18) ASSAY OF FOLIC ACID SERUM (07/13/18) ASSAY OF NATRIURETIC PEPTIDE (07/13/18) ASSAY OF TROPONIN QUANT (07/13/18) ASSAY OF VITAMIN A (07/13/18) ASSAY OF ZINC (07/13/18) BLOOD TRANSFUSION SERVICE (07/13/18) BLOOD TYPING SEROLOGIC ABO (07/13/18) BLOOD TYPING SEROLOGIC RH(D) (07/13/18) CHORIONIC GONADOTROPIN TEST (07/14/18) COMPATIBILITY TEST ANTIGLOB (07/13/18) COMPATIBILITY TEST SPIN (07/13/18) COMPLETE CBC W/AUTO DIFF WBC (07/13/18) COMPREHEN METABOLIC PANEL (07/13/18) CT ABD & PELV W/CONTRAST (08/08/16) CULTURE SCREEN ONLY (07/28/16) DRAINAGE OF GUM LESION (05/23/16) EGD BIOPSY SINGLE/MULTIPLE (07/28/16) ELECTROCARDIOGRAM TRACING (07/13/18) EMERGENCY DEPT VISIT (07/13/18) EMERGENCY DEPT VISIT (05/23/16) EMERGENCY DEPT VISIT (12/02/15) HEMOGLOBIN (07/15/18) HOT OR COLD PACKS THERAPY (06/30/18) HYDRATE IV INFUSION ADD-ON (08/08/16) MANUAL THERAPY 1/> REGIONS (07/12/18) MRI JNT OF LWR EXTRE W/O DYE (03/15/18) MRI JOINT UPR EXTREM W/O DYE (04/21/18) MRI UPPER EXTREMITY W/O DYE (04/14/18) ORTHOTIC MGMT&TRAINJ 1ST ENC (05/30/18) OT EVAL MOD COMPLEX 45 MIN (05/30/18) PARAFFIN BATH THERAPY (07/12/18) RBC ANTIBODY SCREEN (07/13/18) ROUTINE VENIPUNCTURE (07/15/18) THER/PROPH/DIAG INJ IV PUSH (07/13/18) THERAPEUTIC EXERCISES (06/30/18) TRANSVAGINAL US NON-OB (07/14/18) TX/PRO/DX INJ NEW DRUG ADDON (08/08/16) ULTRASOUND THERAPY (07/12/18) URINALYSIS AUTO W/SCOPE (08/08/16) US EXAM PELVIC COMPLETE (07/14/18) VITAMIN B-12 (07/13/18) VITAMIN D 25 HYDROXY (07/13/18) X-RAY EXAM CHEST 1 VIEW (07/13/18) X-RAY EXAM OF HAND (11/20/17) X-RAY EXAM OF SHOULDER (10/16/15) Problem List Initiated/Reviewed/Updated: Yes My Orders Last 24 Hours: My Active Orders 08/15/18 11:52 Convert IV to Saline Lock [OM.PC] Routine Plan: ASSESSMENT AND RECOMMENDATIONS PERIPHERAL EDEMA-significant edema both lower extremities, likely secondary to extra fluids given during surgery and over the past few days. -Discontinue IV fluids -Furosemide 20 mg IV now -Reassess in a.m. STATUS POST SURGICAL REPAIR OF VAGINAL CYSTIC FISTULA-does have some drainage from the wound with somewhat of a foul odor -Wound follow-up per surgical service -Postoperative care per Dr. Gonsalez Requesting Provider: ILSA Date Consult Requested: 08/15/18 Reason for Consult: Peripheral edema Patient History Reviewed: Yes Notified Requestor: Yes
[2018-08-15] MEDS: Acetaminophen/oxyCODONE 325-5 MG Tab PO PRN ×2 (12:32→17:32)
[2018-08-15] MEDS: [UNRECOGNIZED DRUG - OTHER] PO PRN ×2 (12:35→16:37)
--- NOTE | 2018-08-15 14:25 | OR ---
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 POSTOPERATIVE DIAGNOSES: 1. Vesicovaginal fistula. 2. Extensive intraabdominal adhesions. OPERATIVE PROCEDURES: 1. Pelvic examination under anesthesia (76944). 2. Exploratory laparotomy with lysis of extensive adhesions and: a. Closure of vesicovaginal fistula (60391). b. Placement of Interceed mesh over lower abdominal and pelvic wall to displace underlying viscera and limit recurrent adhesion formation (70317). ANESTHESIA: General. KOHINOOR OPERATOR: Kathryn Wright PA-C. INDICATIONS FOR PROCEDURE: This is a 43-year-old recently status post hysterectomy. During the early postoperative period, the patient developed alcohol withdrawal syndrome and was delirious for several days. This extended her hospitalization by about 2 weeks. During that time period, the patient was noted to have pulled on the Buchanan catheter on several occasions, and at one time, pulled the whole catheter in fact out. I suspect this maybe underlying some of the cause of the vesicovaginal fistula. The plan is to proceed with a general anesthetic. We will initially do a pelvic exam under anesthesia to confirm and characterize the vesicovaginal fistula and then assume that as we confirm to procedure with exploratory laparotomy and closure of that fistula. Potential risks of the procedure including bleeding, infection, injury to underlying viscera, problems with the fistula recurring postoperatively as well as remote possibility of cardiopulmonary, septic, or hemorrhagic complications leading to were discussed and the patient wishes to proceed. DETAILS OF PROCEDURE: The patient was taken to the operating room and placed in a supine position. After general endotracheal anesthesia was induced, initially converted to a lithotomy position. A bladder catheter was then placed and a speculum positioned in the vagina. Sterile milk was then injected into the bladder catheter. This confirmed the fistula near the apex of the vaginal cuff with milk coming through that opening which was easily visualized as well as palpated. Given this, the speculum was withdrawn and the patient placed back into a fully supine position and attention made to the laparotomy phase. After the abdomen had been prepped and draped, the previous Pfannenstiel-type incision was then reused and carried down through the skin, subcutaneous tissue, and anterior rectus fascia. Subrectus sheath flaps were then raised superiorly and inferiorly and the midline divided. There were quite extensive adhesions between the omentum and some small bowel in the anterior abdominal wall. These were taken down. As one approached down into the area of the vaginal cuff and lower end of the urinary bladder, a dissection plane was established between the vaginal cuff and the urinary bladder. Using a combination of cautery and blunt dissection, this opened up the area of the fistula which was more or less in the center of the vaginal cuff, perhaps 0.5 cm off the midline toward the right. The dissection between the vaginal cuff and urinary bladder was then accomplished with a combination of blunt and cautery dissection. This resulted in a satisfactory separation from the true structures at the level of fistula. The vaginal cuff closure was then accomplished with 2 [id number] stitches of #1 Vicryl stitch. The opening in the area of bladder was not able to be visualized from the posterior aspect, so urinary bladder was then entered with an anterior incision at the apex of the bladder. That opening was then clearly visible and the bladder then closed with initial full- thickness layer of 0 Vicryl stitch followed by a layer consisting of mucosal musculature with the same suture. Fluorescein was then given IV along with 10 mg of IV Lasix to facilitate urinary flow and both ureters were noted to empty nicely with this thus confirming lack of any ureteral entrapment by means of closure of the bladder. The urinary bladder was then closed with 2 layers of 2-0 Vicryl stitch. At that point, no further problems were noted. The abdomen was irrigated with antibiotic- containing saline solution. A single Nima-Avalos drain was then taken out through the right mid abdomen and placed down into the area adjacent to the fistula closure. The patient was felt to be high risk for additional adhesion formation, and so Interceed mesh was placed down posterior to the bladder and then up against the abdominal wall incision to displace the viscera from those surfaces. The incision was then closed with initial closure of the midline peritoneum with #2 Vicryl stitch and the anterior rectus sheath then closed also with 0 Vicryl stitch. The patient was felt to be high risk for wound infection should a primary closure be undertaken given this gauze for a planned delayed primary closure in 2 days. Physician business assistant, Kathryn Wright, played an essential role in assisting in this case, helping to position the patient, retract structures as needed, as well as suturing and cutting sutures when indicated. Her presence improved patient safety and decreased the operative time. Errol Gonsalze MD /[id number]
[2018-08-15] MEDS: Pantoprazole 40 MG Tab.CR PO SCH (16:34)
[2018-08-15] MEDS ORDERED: Furosemide 20 MG/2 ML VIAL IV ONE (21:00)
[2018-08-16] MEDS: cefOXitin 2 GM in Sodium Chloride 0.9% 50 ML IV SCH ×4 (00:35→18:20)
[2018-08-16] MEDS: Magnesium Sulfate/Water 2 GM in Premix Bag 1 BAG IV SCH ×4 (03:28→21:04)
[2018-08-16] MEDS: Acetaminophen/oxyCODONE 325-5 MG Tab PO PRN ×4 (03:33→20:00)
[2018-08-16] MEDS: Albuterol/Ipratropium 3.0-0.5 MG/3 ML Neb Soln INH SCH ×4 (07:35→20:03)
[2018-08-16] MEDS: Levothyroxine 50 MCG Tab PO SCH (08:24)
[2018-08-16] MEDS: Bisacodyl 5 MG Tab PO SCH ×2 (08:25→20:03)
[2018-08-16] MEDS: Nicotine 21 MG/24 Hr Patch TRDERM SCH (08:25)
[2018-08-16] MEDS: Gabapentin 300 MG Cap PO SCH ×3 (08:26→20:03)
[2018-08-16] MEDS: Potassium Chloride 20 MEQ Tab.ER PO SCH (08:27)
[2018-08-16] MEDS ORDERED: Furosemide 20 MG/2 ML VIAL IVPUSH ONE (10:00)
[2018-08-16] MEDS: [UNRECOGNIZED DRUG - OTHER] PO PRN ×3 (11:31→20:56)
[2018-08-16] MEDS ORDERED: Potassium Chloride 20 MEQ Tab.ER PO ONE ×2 (12:00→17:00)
--- NOTE | 2018-08-16 13:15 | PN ---
DATE OF SERVICE: 08/16/2018 SUBJECTIVE: Ewelina states her pain is controlled. Vital signs have been stable, she has been afebrile. Oral intake 1710. Urine output via Buchanan catheter 3530. RUSS drain #1 has put out 405 of a clear yellow drainage, and RUSS drain #2 put out 55 of a clear drainage. She has had 2 bowel movements. She is up ambulating. REVIEW OF SYSTEMS: Remainder of review of systems negative for any pertinent positives and negatives. OBJECTIVE: GENERAL: Ewelina Grove is a 43-year-old female. She is alert and orientated. VITAL SIGNS: TPR 96.8, 109, 18, blood pressure 130/77. HEENT: Negative. NECK: Supple. HEART: Regular rate and rhythm. LUNGS: Clear. ABDOMEN: Incision looks good. [place] intact. EXTREMITIES: Continue to show an increased amount of peripheral edema. ASSESSMENT: 1. Pelvic examination under anesthesia. 2. Exploratory laparotomy with lysis of extensive adhesion. a. Closure of vesicovaginal fistula. b. Placement of Interceed mesh over lower abdominal and pelvic wall to displace underlining viscera and limit recurrent adhesion formation. c. Vesicovaginal fistula and extensive intraabdominal adhesions. Date of surgery 08/12/2018. Surgeon, Errol Gonsalez MD. 3. Delayed primary closure for open abdominal incision on 08/14/2018. PLAN: 1. Check creatinine levels on RUSS drain #1 and RUSS drain #2. 2. Communication order written to call Errol Gonsalez MD with results of the creatinine level. 3. Check CBC, CMP, and phos in a.m. Continue good pulmonary toilet. 4. We will evaluate p.r.n. or in a.m. Kathryn Wright PA-C /[id number]
--- NOTE | 2018-08-16 13:17 | PCM.CONSN ---
- General Info Date of Service: 08/16/18 Subjective Update: Ms. Grove has been stable since yesterday, continues to experience serous drainage from the wound. Modest diuresis yesterday with IV furosemide, of 1 L. She has not noted appreciable difference in the amount of peripheral edema. Functional Status: Reports: Ambulating - Review of Systems General: Reports: Weakness. Denies: Fever, Chills Pulmonary: Reports: No Symptoms Cardiovascular: Reports: No Symptoms Gastrointestinal: Reports: Abdominal Pain. Denies: Diarrhea, Difficulty Swallowing, Nausea, Vomiting - Patient Data Vitals - Most Recent: Last Vital Signs Temp 95.7 F 08/16/18 10:45 Pulse 96 08/16/18 10:56 Resp 18 08/16/18 10:45 BP 109/63 08/16/18 10:45 Pulse Ox 97 08/16/18 10:56 Weight - Most Recent: 192 lb 0.009 oz I&O - Last 24 Hours: Intake & Output 08/15/18 08/16/18 08/16/18 22:59 06:59 14:59 Intake Total 1950 700 436 Output Total 2624 1020 1785 Balance -937 -601 -8284 Lab Results Last 24 Hours: Laboratory Results - last 24 hr 08/16/18 08/16/18 08/16/18 Range/Units 09:25 09:30 09:51 Sodium 139 L (140-148) mmol/L Potassium 3.2 L (3.6-5.2) mmol/L Chloride 104 (100-108) mmol/L Carbon Dioxide 29 (21-32) mmol/L Anion Gap 9.2 (5.0-14.0) mmol/L BUN 1 L (7-18) mg/dL Creatinine 0.7 (0.6-1.0) mg/dL Est Cr Clr Drug Dosing 91.18 mL/min Estimated GFR (MDRD) > 60 (>60) Glucose 71 L (74-106) mg/dL Calcium 8.5 (8.5-10.1) mg/dL Magnesium 2.3 D (1.8-2.4) mg/dL Fluid Type Drew drainage Drew drainage Fluid Creatinine 0.5 0.6 mg/dL Med Orders - Current: Current Medications Albuterol/Ipratropium (Duoneb 3.0-0.5 Mg/3 Ml) 3 ml INH QIDRT [facility] Last Admin: 08/16/18 10:55 Dose: 3 ml Albuterol/Ipratropium (Duoneb 3.0-0.5 Mg/3 Ml) 3 ml INH ASDIRECTED PRN PRN Reason: RESP Belladonna Alkaloids/Opium (B & O Supprettes No. 15a) 1 supp RECTAL Q4H PRN PRN Reason: BLADDER SPASM Bisacodyl (Dulcolax) 10 mg PO BID [facility] Last Admin: 08/16/18 08:25 Dose: 10 mg Cyclobenzaprine HCl (Flexeril) 10 mg PO Q6H PRN PRN Reason: MUSCLE SPASM Last Admin: 08/15/18 03:23 Dose: 10 mg Furosemide (Lasix) 20 mg IVPUSH Q8H [facility] Gabapentin (Neurontin) 300 mg PO TID [facility] Last Admin: 08/16/18 08:26 Dose: 300 mg Hydroxyzine HCl (Vistaril) 100 mg IM Q4H PRN PRN Reason: PAIN Last Admin: 08/15/18 23:00 Dose: 100 mg Cefoxitin Sodium 2 gm/ Sodium (Chloride) 50 mls @ 100 mls/hr IV Q6H [facility] Last Admin: 08/16/18 12:18 Dose: 100 mls/hr Magnesium Sulfate 2 gm/ Premix 50 mls @ 25 mls/hr IV Q6H [facility] Stop: 08/17/18 05:59 Last Admin: 08/16/18 09:52 Dose: 25 mls/hr Albumin Human (Albumin 25%) 25 gm in 100 mls @ 25 mls/hr IV Q24H [facility] Stop: 08/17/18 13:59 Last Admin: 08/16/18 09:52 Dose: 25 mls/hr Albumin Human (Albumin 25%) 25 gm in 100 mls @ 25 mls/hr IV Q24H [facility] Stop: 08/17/18 17:59 Last Admin: 08/15/18 14:04 Dose: 25 mls/hr Levothyroxine Sodium (Synthroid) 50 mcg PO ACBREAKFAST [facility] Last Admin: 08/16/18 08:24 Dose: 50 mcg Magnesium Hydroxide (Milk Of Magnesia) 30 ml PO ASDIRECTED PRN PRN Reason: Constipation Last Admin: 08/14/18 11:11 Dose: 30 ml Miscellaneous Information (Remove Patch) 1 ea TRDERM BEDTIME [facility] Last Admin: 08/15/18 21:26 Dose: Not Given Nicotine (Habitrol) 21 mg TRDERM DAILY [facility] Last Admin: 08/16/18 08:25 Dose: 21 mg Ondansetron HCl (Zofran) 4 mg IVPUSH Q4H PRN PRN Reason: Nausea Oxycodone/Acetaminophen (Percocet 325-5 Mg) 1 tab PO Q4H PRN PRN Reason: paiin Last Admin: 08/16/18 08:32 Dose: 1 tab Pantoprazole Sodium (Protonix) 40 mg PO Q24H [facility] Last Admin: 08/15/18 16:34 Dose: 40 mg Whisky Shot (Ptom) 0 each PO 6XDAY PRN PRN Reason: PER PATIENT PREFERENCE Last Admin: 08/16/18 11:31 Dose: 1 each Potassium Chloride (Klor-Con M20) 40 meq PO DAILY [facility] Last Admin: 08/16/18 08:27 Dose: 40 meq Potassium Chloride (Klor-Con M20) 40 meq PO ONETIME ONE Stop: 08/16/18 17:01 Senna/Docusate Sodium (Senna Plus) 2 tab PO BID [facility] Last Admin: 08/16/18 08:27 Dose: 2 tab Discontinued Medications Acetaminophen (Tylenol Extra Strength) 1,000 mg PO ONETIME ONE Stop: 08/12/18 09:16 Last Admin: 08/12/18 10:07 Dose: 1,000 mg Bupivacaine HCl (Marcaine 0.5%) Confirm Administered Dose 50 ml .ROUTE .STK-MED ONE Stop: 08/14/18 06:53 Last Admin: 08/14/18 07:59 Dose: 20 ml Ropivacaine 45 ml/Dexamethasone 8 mg/Epinephrine HCl 0.4 mg/ Sodium Chloride 32.6 ml 0 ml NERVRT ASDIRECTED [facility] Last Admin: 08/12/18 12:00 Dose: 80 syringe Ropivacaine 45 ml/Dexamethasone 8 mg/Epinephrine HCl 0.4 mg/ Sodium Chloride 32.6 ml 0 ml NERVRT ASDIRECTED [facility] Last Admin: 08/14/18 08:04 Dose: 80 syringe Dexamethasone (Dexamethasone) Confirm Administered Dose 4 mg .ROUTE .STK-MED ONE Stop: 08/12/18 11:04 Fentanyl (Sublimaze) Confirm Administered Dose 100 mcg .ROUTE .STK-MED ONE Stop: 08/12/18 11:03 Fentanyl (Sublimaze) Confirm Administered Dose 250 mcg .ROUTE .STK-MED ONE Stop: 08/12/18 11:06 Fentanyl (Sublimaze) Confirm Administered Dose 250 mcg .ROUTE .STK-MED ONE Stop: 08/12/18 11:45 Fentanyl (Sublimaze) Confirm Administered Dose 100 mcg .ROUTE .STK-MED ONE Stop: 08/14/18 07:21 Fluorescein Sodium (Ak-Fluor) Confirm Administered Dose 5 ml .ROUTE .STK-MED ONE Stop: 08/12/18 13:04 Furosemide (Lasix) Confirm Administered Dose 20 mg .ROUTE .STK-MED ONE Stop: 08/12/18 13:12 Furosemide (Lasix) 20 mg IVPUSH NOW ONE Stop: 08/15/18 11:53 Last Admin: 08/15/18 12:08 Dose: 20 mg Furosemide (Lasix) 20 mg IV ONETIME ONE Stop: 08/15/18 21:01 Last Admin: 08/15/18 21:24 Dose: 20 mg Furosemide (Lasix) 20 mg IVPUSH NOW ONE Stop: 08/16/18 10:01 Last Admin: 08/16/18 09:57 Dose: 20 mg Gabapentin (Neurontin) 300 mg PO ONETIME ONE Stop: 08/12/18 10:01 Last Admin: 08/12/18 10:07 Dose: 300 mg Glycopyrrolate (Robinul) Confirm Administered Dose 1 mg .ROUTE .STK-MED ONE Stop: 08/12/18 11:04 Hydromorphone HCl (Dilaudid Linen Checker 15 Mg In Ns 30 Ml) 0 mg IV ASDIRECTED PRN; Protocol PRN Reason: Pain Last Admin: 08/13/18 17:02 Dose: 15 mg Cefoxitin Sodium 2 gm/ Sodium (Chloride) 50 mls @ 100 mls/hr IV ONETIME ONE Stop: 08/12/18 11:14 Last Admin: 08/12/18 11:25 Dose: 100 mls/hr Dextrose/Lactated Ringer's (Dextrose 5%-Lactated Ringers) 1,000 mls @ 100 mls/ hr IV ASDIRECTED [facility] Last Admin: 08/12/18 15:45 Dose: 100 mls/hr Ketamine HCl 50 mg/ Sodium (Chloride) 50 mls @ 17.4 mls/hr IV ASDIRECTED [facility] Lactated Ringer's (Ringers, Lactated) Confirm Administered Dose 1,000 mls @ as directed .ROUTE .[facility] ONE Stop: 08/12/18 12:56 Dextrose/Lactated Ringer's (Dextrose 5%-Lactated Ringers) 1,000 mls @ 150 mls/ hr IV ASDIRECTED [facility] Last Admin: 08/13/18 12:37 Dose: 150 mls/hr Dextrose/Lactated Ringer's (Dextrose 5%-Lactated Ringers) 1,000 mls @ 100 mls/ hr IV ASDIRECTED [facility] Last Admin: 08/15/18 03:27 Dose: 100 mls/hr Lactated Ringer's (Ringers, Lactated) 500 mls @ 500 mls/hr IV .BOLUS [facility] Stop: 08/14/18 05:45 Last Admin: 08/14/18 04:51 Dose: 500 mls/hr Lidocaine HCl (Xylocaine-Mpf 1%) Confirm Administered Dose 2 mls @ as directed .ROUTE .[facility] ONE Stop: 08/14/18 07:24 Sodium Chloride (Normal Saline) Confirm Administered Dose 10 mls @ as directed .ROUTE .[facility] ONE Stop: 08/14/18 07:47 Potassium Phosphate 20 mmole/ (Sodium Chloride) 256.6667 mls @ 85.556 mls/hr IV Q3H [facility] Stop: 08/14/18 20:59 Last Admin: 08/14/18 18:08 Dose: 85.556 mls/hr Potassium Phosphate 20 mmole/ (Sodium Chloride) 256.6667 mls @ 85 mls/hr IV Q3H [facility] Stop: 08/15/18 18:29 Last Admin: 08/15/18 16:34 Dose: 85 mls/hr Ketamine HCl (Ketalar) 29 mg IV ASDIRECTED [facility] Ketoconazole (Nizoral 2% Crm) 0 gm TOP ONETIME ONE Stop: 08/12/18 13:51 Last Admin: 08/12/18 16:14 Dose: Not Given Ketorolac Tromethamine (Toradol) Confirm Administered Dose 60 mg .ROUTE .[facility] ONE Stop: 08/12/18 11:19 Lidocaine/Epinephrine (Xylocaine 1% With Epinephrine 1:100,000) Confirm Administered Dose 50 ml .ROUTE .STK-MED ONE Stop: 08/14/18 06:51 Last Admin: 08/14/18 07:59 Dose: 20 ml Magnesium Hydroxide (Milk Of Magnesia) 30 ml PO BID PRN PRN Reason: Constipation Last Admin: 08/13/18 16:04 Dose: 30 ml Meropenem (Merrem) Confirm Administered Dose 500 mg .ROUTE .STK-MED ONE Stop: 08/12/18 11:54 Last Admin: 08/12/18 12:15 Dose: 500 mg Meropenem (Merrem) Confirm Administered Dose 500 mg .ROUTE .STK-MED ONE Stop: 08/14/18 06:53 Last Admin: 08/14/18 08:11 Dose: 500 mg Midazolam HCl (Versed 1 Mg/Ml) Confirm Administered Dose 2 mg .ROUTE .STK-MED ONE Stop: 08/12/18 11:03 Midazolam HCl (Versed 1 Mg/Ml) Confirm Administered Dose 2 mg .ROUTE .STK-MED ONE Stop: 08/14/18 07:22 Naloxone HCl (Narcan) 0.1 mg IV ASDIRECTED PRN PRN Reason: decreased respiratory rate Neostigmine Methylsulfate (Neostigmine) Confirm Administered Dose 5 mg .ROUTE .STK-MED ONE Stop: 08/12/18 11:04 Ondansetron HCl (Zofran) Confirm Administered Dose 4 mg .ROUTE .STK-MED ONE Stop: 08/12/18 11:04 Pantoprazole Sodium (Protonix Iv) 40 mg IV Q24H [facility] Last Admin: 08/13/18 17:28 Dose: 40 mg Potassium Chloride (Klor-Con M20) 40 meq PO ONETIME ONE Stop: 08/16/18 12:01 Last Admin: 08/16/18 11:53 Dose: 40 meq Propofol (Diprivan 20 Ml) Confirm Administered Dose 200 mg .ROUTE .STK-MED ONE Stop: 08/12/18 11:04 Propofol (Diprivan 20 Ml) Confirm Administered Dose 200 mg .ROUTE .STK-MED ONE Stop: 08/14/18 07:21 Propofol (Diprivan 20 Ml) Confirm Administered Dose 200 mg .ROUTE .STK-MED ONE Stop: 08/14/18 08:21 Rocuronium [place] (Zemuron) Confirm Administered Dose 50 mg .ROUTE .STK-MED ONE Stop: 08/12/18 11:04 Succinylcholine Chloride (Quelicin) Confirm Administered Dose 200 mg .ROUTE .STK -MED ONE Stop: 08/12/18 11:04 Sugammadex Sodium (Bridion) Confirm Administered Dose 200 mg .ROUTE .STK-MED ONE Stop: 08/12/18 14:04 - Exam General: Alert, Oriented, Cooperative, Mild Distress Lungs: Clear to Auscultation, Normal Respiratory Effort Cardiovascular: Regular Rate, Regular Rhythm, No Murmurs GI/Abdominal Exam: Soft, Non-Tender, No Organomegaly, No Distention Extremities: Non-Tender, Pedal Edema Consult PN Assessment/Plan Procedures: Procedures APPLY FOREARM SPLINT (11/20/17) ASSAY OF COPPER (07/13/18) ASSAY OF FERRITIN (07/13/18) ASSAY OF FOLIC ACID SERUM (07/13/18) ASSAY OF NATRIURETIC PEPTIDE (07/13/18) ASSAY OF TROPONIN QUANT (07/13/18) ASSAY OF VITAMIN A (07/13/18) ASSAY OF ZINC (07/13/18) BLOOD TRANSFUSION SERVICE (07/13/18) BLOOD TYPING SEROLOGIC ABO (07/13/18) BLOOD TYPING SEROLOGIC RH(D) (07/13/18) CHORIONIC GONADOTROPIN TEST (07/14/18) COMPATIBILITY TEST ANTIGLOB (07/13/18) COMPATIBILITY TEST SPIN (07/13/18) COMPLETE CBC W/AUTO DIFF WBC (07/13/18) COMPREHEN METABOLIC PANEL (07/13/18) CT ABD & PELV W/CONTRAST (08/08/16) CULTURE SCREEN ONLY (07/28/16) DRAINAGE OF GUM LESION (05/23/16) EGD BIOPSY SINGLE/MULTIPLE (07/28/16) ELECTROCARDIOGRAM TRACING (07/13/18) EMERGENCY DEPT VISIT (07/13/18) EMERGENCY DEPT VISIT (05/23/16) EMERGENCY DEPT VISIT (12/02/15) HEMOGLOBIN (07/15/18) HOT OR COLD PACKS THERAPY (06/30/18) HYDRATE IV INFUSION ADD-ON (08/08/16) MANUAL THERAPY 1/> REGIONS (07/12/18) MRI JNT OF LWR EXTRE W/O DYE (03/15/18) MRI JOINT UPR EXTREM W/O DYE (04/21/18) MRI UPPER EXTREMITY W/O DYE (04/14/18) ORTHOTIC MGMT&TRAINJ 1ST ENC (05/30/18) OT EVAL MOD COMPLEX 45 MIN (05/30/18) PARAFFIN BATH THERAPY (07/12/18) RBC ANTIBODY SCREEN (07/13/18) ROUTINE VENIPUNCTURE (07/15/18) THER/PROPH/DIAG INJ IV PUSH (07/13/18) THERAPEUTIC EXERCISES (06/30/18) TRANSVAGINAL US NON-OB (07/14/18) TX/PRO/DX INJ NEW DRUG ADDON (08/08/16) ULTRASOUND THERAPY (07/12/18) URINALYSIS AUTO W/SCOPE (08/08/16) US EXAM PELVIC COMPLETE (07/14/18) VITAMIN B-12 (07/13/18) VITAMIN D 25 HYDROXY (07/13/18) X-RAY EXAM CHEST 1 VIEW (07/13/18) X-RAY EXAM OF HAND (11/20/17) X-RAY EXAM OF SHOULDER (10/16/15) Problem List Initiated/Reviewed/Updated: Yes My Orders Last 24 Hours: My Active Orders 08/16/18 16:00 Furosemide [Lasix] 20 mg IVPUSH Q8H 08/16/18 17:00 Potassium Chloride [Klor-Con M20] 40 meq PO ONETIME ONE Plan: ASSESSMENT AND RECOMMENDATIONS PERIPHERAL EDEMA-significant edema both lower extremities, likely secondary to extra fluids given during surgery and over the past few days. Modest diuresis in the last 24 hours no significant improvement in peripheral edema -Discontinue IV fluids -Furosemide 20 mg IV every 8 hours -Reassess in a.m. STATUS POST SURGICAL REPAIR OF VAGINAL CYSTIC FISTULA-does have some drainage from the wound with somewhat of a foul odor -Wound follow-up per surgical service -Postoperative care per Dr. Gonsalez
[2018-08-16] MEDS: Furosemide 20 MG/2 ML VIAL IVPUSH SCH ×2 (15:21→23:29)
[2018-08-16] MEDS: Cyclobenzaprine 10 MG Tab PO PRN (15:27)
[2018-08-16] MEDS: Pantoprazole 40 MG Tab.CR PO SCH (15:29)
[2018-08-17] MEDS: cefOXitin 2 GM in Sodium Chloride 0.9% 50 ML IV SCH ×3 (00:02→12:05)
[2018-08-17] MEDS: Acetaminophen/oxyCODONE 325-5 MG Tab PO PRN ×4 (00:03→17:43)
[2018-08-17] MEDS: Magnesium Sulfate/Water 2 GM in Premix Bag 1 BAG IV SCH (03:11)
[2018-08-17] MEDS: Levothyroxine 50 MCG Tab PO SCH (07:26)
[2018-08-17] MEDS: Furosemide 20 MG/2 ML VIAL IVPUSH SCH (07:26)
[2018-08-17] MEDS: Albuterol/Ipratropium 3.0-0.5 MG/3 ML Neb Soln INH SCH ×4 (07:34→20:30)
[2018-08-17] MEDS ORDERED: Potassium Chloride 20 MEQ Tab.ER PO ONE ×6 (08:15→23:38)
[2018-08-17] MEDS ORDERED: Potassium Phosphates 45 MMOLE in Sodium Chloride 0.9% 250 ML IV SCH (08:30)
[2018-08-17] MEDS ORDERED: Furosemide 20 MG/2 ML VIAL IVPUSH SCH ×2 (08:30→20:00)
[2018-08-17] MEDS: Nicotine 21 MG/24 Hr Patch TRDERM SCH (08:54)
[2018-08-17] MEDS: Gabapentin 300 MG Cap PO SCH ×3 (08:54→21:53)
[2018-08-17] MEDS: Potassium Chloride 20 MEQ Tab.ER PO SCH (08:55)
[2018-08-17] MEDS ORDERED: Potassium Chloride 20 MEQ in Premix Bag 1 BAG IV SCH (09:00)
[2018-08-17] MEDS: Cyclobenzaprine 10 MG Tab PO PRN (09:45)
[2018-08-17] MEDS: [UNRECOGNIZED DRUG - OTHER] PO PRN ×2 (09:47→21:57)
[2018-08-17] MEDS ORDERED: Potassium Chloride 20 MEQ, Lidocaine 1% 2 ML in Sodium Chloride 0.9% 100 ML IV SCH (12:00)
--- NOTE | 2018-08-17 14:38 | PCM.CONSN ---
- General Info Date of Service: 08/17/18 Subjective Update: Ms. Grove has been stable over the last 24 hours with excellent diuresis and improvement in peripheral edema. Functional Status: Reports: Tolerating Diet, Ambulating - Review of Systems General: Reports: Weakness. Denies: Fever, Chills Pulmonary: Reports: No Symptoms Cardiovascular: Reports: Edema. Denies: Chest Pain, Palpitations, Dyspnea on Exertion, Orthopnea, PND Gastrointestinal: Reports: Abdominal Pain. Denies: Diarrhea, Difficulty Swallowing, Nausea, Vomiting - Patient Data Vitals - Most Recent: Last Vital Signs Temp 97.2 F 08/17/18 10:25 Pulse 54 L 08/17/18 10:51 Resp 20 08/17/18 10:25 BP 113/68 08/17/18 10:25 Pulse Ox 96 08/17/18 10:51 Weight - Most Recent: 192 lb 0.009 oz I&O - Last 24 Hours: Intake & Output 08/16/18 08/17/18 08/17/18 22:59 06:59 14:59 Intake Total 1370 150 680 Output Total 3365 2240 1510 Balance -1994 Lab Results Last 24 Hours: Laboratory Results - last 24 hr 08/17/18 08/17/18 08/17/18 Range/Units 05:54 05:54 08:21 WBC 3.2 L (4.5-11.0) K/uL RBC 2.82 L (3.30-5.50) M/uL Hgb 8.6 L (12.0-15.0) g/dL Hct 27.9 L (36.0-48.0) % MCV 99 H (80-98) fL MCH 31 (27-31) pg MCHC 31 L (32-36) % Plt Count 187 (150-400) K/uL Sodium 144 (140-148) mmol/L Potassium 2.6 L* (3.6-5.2) mmol/L Chloride 106 (100-108) mmol/L Carbon Dioxide 30 (21-32) mmol/L Anion Gap 10.6 (5.0-14.0) mmol/L BUN 1 L (7-18) mg/dL Creatinine 0.7 (0.6-1.0) mg/dL Est Cr Clr Drug Dosing 91.18 mL/min Estimated GFR (MDRD) > 60 (>60) Glucose 72 L (74-106) mg/dL Calcium 8.3 L (8.5-10.1) mg/dL Phosphorus 3.2 (2.5-4.9) mg/dL Total Bilirubin 0.8 (0.2-1.0) mg/dL AST 20 (15-37) U/L ALT 19 (12-78) U/L Alkaline Phosphatase 89 (46-116) U/L Total Protein 5.2 L (6.4-8.2) g/dL Albumin 2.6 L (3.4-5.0) g/dL Globulin 2.6 (2.3-3.5) g/dL Albumin/Globulin Ratio 1.0 L (1.2-2.2) Blood Type O POSITIVE Gel Antibody Screen Negative Crossmatch See Detail Med Orders - Current: Current Medications Albuterol/Ipratropium (Duoneb 3.0-0.5 Mg/3 Ml) 3 ml INH QIDRT [facility] Last Admin: 08/17/18 10:57 Dose: 3 ml Albuterol/Ipratropium (Duoneb 3.0-0.5 Mg/3 Ml) 3 ml INH ASDIRECTED PRN PRN Reason: RESP Belladonna Alkaloids/Opium (B & O Supprettes No. 15a) 1 supp RECTAL Q4H PRN PRN Reason: BLADDER SPASM Cyclobenzaprine HCl (Flexeril) 10 mg PO Q6H PRN PRN Reason: MUSCLE SPASM Last Admin: 08/17/18 09:45 Dose: 10 mg Furosemide (Lasix) 20 mg IVPUSH Q12H [facility] Gabapentin (Neurontin) 300 mg PO TID [facility] Last Admin: 08/17/18 13:50 Dose: 300 mg Hydroxyzine HCl (Vistaril) 100 mg IM Q4H PRN PRN Reason: PAIN Last Admin: 08/15/18 23:00 Dose: 100 mg Albumin Human (Albumin 25%) 25 gm in 100 mls @ 25 mls/hr IV Q24H [facility] Stop: 08/17/18 17:59 Last Admin: 08/17/18 13:50 Dose: 25 mls/hr Levothyroxine Sodium (Synthroid) 50 mcg PO ACBREAKFAST [facility] Last Admin: 08/17/18 07:26 Dose: 50 mcg Magnesium Hydroxide (Milk Of Magnesia) 30 ml PO ASDIRECTED PRN PRN Reason: Constipation Last Admin: 08/14/18 11:11 Dose: 30 ml Miscellaneous Information (Remove Patch) 1 ea TRDERM BEDTIME [facility] Last Admin: 08/16/18 20:06 Dose: Not Given Nicotine (Habitrol) 21 mg TRDERM DAILY [facility] Last Admin: 08/17/18 08:54 Dose: 21 mg Ondansetron HCl (Zofran) 4 mg IVPUSH Q4H PRN PRN Reason: Nausea Oxycodone/Acetaminophen (Percocet 325-5 Mg) 1 tab PO Q4H PRN PRN Reason: paiin Last Admin: 08/17/18 12:04 Dose: 1 tab Pantoprazole Sodium (Protonix) 40 mg PO Q24H [facility] Last Admin: 08/16/18 15:29 Dose: 40 mg Whisky Shot (Ptom) 0 each PO 6XDAY PRN PRN Reason: PER PATIENT PREFERENCE Last Admin: 08/17/18 09:47 Dose: 30 each Potassium Chloride (Klor-Con M20) 40 meq PO DAILY [facility] Last Admin: 08/17/18 08:55 Dose: 40 meq Discontinued Medications Acetaminophen (Tylenol Extra Strength) 1,000 mg PO ONETIME ONE Stop: 08/12/18 09:16 Last Admin: 08/12/18 10:07 Dose: 1,000 mg Bisacodyl (Dulcolax) 10 mg PO BID [facility] Last Admin: 08/16/18 20:03 Dose: 10 mg Bupivacaine HCl (Marcaine 0.5%) Confirm Administered Dose 50 ml .ROUTE .STK-MED ONE Stop: 08/14/18 06:53 Last Admin: 08/14/18 07:59 Dose: 20 ml Ropivacaine 45 ml/Dexamethasone 8 mg/Epinephrine HCl 0.4 mg/ Sodium Chloride 32.6 ml 0 ml NERVRT ASDIRECTED [facility] Last Admin: 08/12/18 12:00 Dose: 80 syringe Ropivacaine 45 ml/Dexamethasone 8 mg/Epinephrine HCl 0.4 mg/ Sodium Chloride 32.6 ml 0 ml NERVRT ASDIRECTED [facility] Last Admin: 08/14/18 08:04 Dose: 80 syringe Dexamethasone (Dexamethasone) Confirm Administered Dose 4 mg .ROUTE .STK-MED ONE Stop: 08/12/18 11:04 Fentanyl (Sublimaze) Confirm Administered Dose 100 mcg .ROUTE .STK-MED ONE Stop: 08/12/18 11:03 Fentanyl (Sublimaze) Confirm Administered Dose 250 mcg .ROUTE .ST-MED ONE Stop: 08/12/18 11:06 Fentanyl (Sublimaze) Confirm Administered Dose 250 mcg .ROUTE .STK-MED ONE Stop: 08/12/18 11:45 Fentanyl (Sublimaze) Confirm Administered Dose 100 mcg .ROUTE .ST-MED ONE Stop: 08/14/18 07:21 Fluorescein Sodium (Ak-Fluor) Confirm Administered Dose 5 ml .ROUTE .ST-MED ONE Stop: 08/12/18 13:04 Furosemide (Lasix) Confirm Administered Dose 20 mg .ROUTE .[facility]-MED ONE Stop: 08/12/18 13:12 Furosemide (Lasix) 20 mg IVPUSH NOW ONE Stop: 08/15/18 11:53 Last Admin: 08/15/18 12:08 Dose: 20 mg Furosemide (Lasix) 20 mg IV ONETIME ONE Stop: 08/15/18 21:01 Last Admin: 08/15/18 21:24 Dose: 20 mg Furosemide (Lasix) 20 mg IVPUSH NOW ONE Stop: 08/16/18 10:01 Last Admin: 08/16/18 09:57 Dose: 20 mg Furosemide (Lasix) 20 mg IVPUSH Q8H [facility] Last Admin: 08/17/18 07:26 Dose: 20 mg Furosemide (Lasix) 20 mg IVPUSH Q12H [facility] Gabapentin (Neurontin) 300 mg PO ONETIME ONE Stop: 08/12/18 10:01 Last Admin: 08/12/18 10:07 Dose: 300 mg Glycopyrrolate (Robinul) Confirm Administered Dose 1 mg .ROUTE .ST-MED ONE Stop: 08/12/18 11:04 Hydromorphone HCl (Dilaudid Director Check 15 Mg In Ns 30 Ml) 0 mg IV ASDIRECTED PRN; Protocol PRN Reason: Pain Last Admin: 08/13/18 17:02 Dose: 15 mg Cefoxitin Sodium 2 gm/ Sodium (Chloride) 50 mls @ 100 mls/hr IV ONETIME ONE Stop: 08/12/18 11:14 Last Admin: 08/12/18 11:25 Dose: 100 mls/hr Dextrose/Lactated Ringer's (Dextrose 5%-Lactated Ringers) 1,000 mls @ 100 mls/ hr IV ASDIRECTED [facility] Last Admin: 08/12/18 15:45 Dose: 100 mls/hr Ketamine HCl 50 mg/ Sodium (Chloride) 50 mls @ 17.4 mls/hr IV ASDIRECTED [facility] Lactated Ringer's (Ringers, Lactated) Confirm Administered Dose 1,000 mls @ as directed .ROUTE .[facility] ONE Stop: 08/12/18 12:56 Dextrose/Lactated Ringer's (Dextrose 5%-Lactated Ringers) 1,000 mls @ 150 mls/ hr IV ASDIRECTED [facility] Last Admin: 08/13/18 12:37 Dose: 150 mls/hr Cefoxitin Sodium 2 gm/ Sodium (Chloride) 50 mls @ 100 mls/hr IV Q6H [facility] Last Admin: 08/17/18 12:05 Dose: 100 mls/hr Dextrose/Lactated Ringer's (Dextrose 5%-Lactated Ringers) 1,000 mls @ 100 mls/ hr IV ASDIRECTED [facility] Last Admin: 08/15/18 03:27 Dose: 100 mls/hr Lactated Ringer's (Ringers, Lactated) 500 mls @ 500 mls/hr IV .BOLUS [facility] Stop: 08/14/18 05:45 Last Admin: 08/14/18 04:51 Dose: 500 mls/hr Lidocaine HCl (Xylocaine-Mpf 1%) Confirm Administered Dose 2 mls @ as directed .ROUTE .[facility] ONE Stop: 08/14/18 07:24 Sodium Chloride (Normal Saline) Confirm Administered Dose 10 mls @ as directed .ROUTE .[facility] ONE Stop: 08/14/18 07:47 Magnesium Sulfate 2 gm/ Premix 50 mls @ 25 mls/hr IV Q6H [facility] Stop: 08/17/18 05:59 Last Admin: 08/17/18 03:11 Dose: 25 mls/hr Albumin Human (Albumin 25%) 25 gm in 100 mls @ 25 mls/hr IV Q24H [facility] Stop: 08/17/18 13:59 Last Admin: 08/17/18 09:48 Dose: 25 mls/hr Potassium Phosphate 20 mmole/ (Sodium Chloride) 256.6667 mls @ 85.556 mls/hr IV Q3H [facility] Stop: 08/14/18 20:59 Last Admin: 08/14/18 18:08 Dose: 85.556 mls/hr Potassium Phosphate 20 mmole/ (Sodium Chloride) 256.6667 mls @ 85 mls/hr IV Q3H [facility] Stop: 08/15/18 18:29 Last Admin: 08/15/18 16:34 Dose: 85 mls/hr Potassium Chloride 20 meq/ (Premix) 100 mls @ 50 mls/hr IV Q2H [facility] Stop: 08/17/18 10:50 Last Admin: 08/17/18 09:47 Dose: 50 mls/hr Potassium Phosphate 45 mmole/ (Sodium Chloride) 265 mls @ 85.556 mls/hr IV ONETIME [facility] Potassium Chloride 20 meq/Lidocaine HCl 2 ml/ Sodium Chloride 112 mls @ 56 mls/ hr IV Q2H [facility] Stop: 08/17/18 13:59 Last Admin: 08/17/18 13:05 Dose: 56 mls/hr Ketamine HCl (Ketalar) 29 mg IV ASDIRECTED [facility] Ketoconazole (Nizoral 2% Crm) 0 gm TOP ONETIME ONE Stop: 08/12/18 13:51 Last Admin: 08/12/18 16:14 Dose: Not Given Ketorolac Tromethamine (Toradol) Confirm Administered Dose 60 mg .ROUTE .STK- MED ONE Stop: 08/12/18 11:19 Lidocaine/Epinephrine (Xylocaine 1% With Epinephrine 1:100,000) Confirm Administered Dose 50 ml .ROUTE .STK-MED ONE Stop: 08/14/18 06:51 Last Admin: 08/14/18 07:59 Dose: 20 ml Magnesium Hydroxide (Milk Of Magnesia) 30 ml PO BID PRN PRN Reason: Constipation Last Admin: 08/13/18 16:04 Dose: 30 ml Meropenem (Merrem) Confirm Administered Dose 500 mg .ROUTE .STK-MED ONE Stop: 08/12/18 11:54 Last Admin: 08/12/18 12:15 Dose: 500 mg Meropenem (Merrem) Confirm Administered Dose 500 mg .ROUTE .STK-MED ONE Stop: 08/14/18 06:53 Last Admin: 08/14/18 08:11 Dose: 500 mg Midazolam HCl (Versed 1 Mg/Ml) Confirm Administered Dose 2 mg .ROUTE .STK-MED ONE Stop: 08/12/18 11:03 Midazolam HCl (Versed 1 Mg/Ml) Confirm Administered Dose 2 mg .ROUTE .STK-MED ONE Stop: 08/14/18 07:22 Naloxone HCl (Narcan) 0.1 mg IV ASDIRECTED PRN PRN Reason: decreased respiratory rate Neostigmine Methylsulfate (Neostigmine) Confirm Administered Dose 5 mg .ROUTE .STK-MED ONE Stop: 08/12/18 11:04 Ondansetron HCl (Zofran) Confirm Administered Dose 4 mg .ROUTE .STK-MED ONE Stop: 08/12/18 11:04 Pantoprazole Sodium (Protonix Iv) 40 mg IV Q24H [facility] Last Admin: 08/13/18 17:28 Dose: 40 mg Potassium Chloride (Klor-Con M20) 40 meq PO ONETIME ONE Stop: 08/16/18 12:01 Last Admin: 08/16/18 11:53 Dose: 40 meq Potassium Chloride (Klor-Con M20) 40 meq PO ONETIME ONE Stop: 08/16/18 17:01 Last Admin: 08/16/18 17:00 Dose: 40 meq Potassium Chloride (Klor-Con M20) 40 meq PO ONETIME ONE Stop: 08/17/18 08:16 Last Admin: 08/17/18 08:53 Dose: 40 meq Potassium Chloride (Klor-Con M20) 40 meq PO BID ONE Stop: 08/17/18 08:23 Last Admin: 08/17/18 08:55 Dose: Not Given Propofol (Diprivan 20 Ml) Confirm Administered Dose 200 mg .ROUTE .STK-MED ONE Stop: 08/12/18 11:04 Propofol (Diprivan 20 Ml) Confirm Administered Dose 200 mg .ROUTE .STK-MED ONE Stop: 08/14/18 07:21 Propofol (Diprivan 20 Ml) Confirm Administered Dose 200 mg .ROUTE .STK-MED ONE Stop: 08/14/18 08:21 Rocuronium Marsteller (Zemuron) Confirm Administered Dose 50 mg .ROUTE .STK-MED ONE Stop: 08/12/18 11:04 Senna/Docusate Sodium (Senna Plus) 2 tab PO BID [facility] Last Admin: 08/16/18 20:03 Dose: 2 tab Succinylcholine Chloride (Quelicin) Confirm Administered Dose 200 mg .ROUTE .STK -MED ONE Stop: 08/12/18 11:04 Sugammadex Sodium (Bridion) Confirm Administered Dose 200 mg .ROUTE .STK-MED ONE Stop: 08/12/18 14:04 - Exam Quality Assessment: DVT Prophylaxis General: Alert, Oriented, Cooperative, No Acute Distress Lungs: Clear to Auscultation, Normal Respiratory Effort Cardiovascular: Regular Rate, Regular Rhythm, No Murmurs GI/Abdominal Exam: Soft, No Organomegaly, No Distention, Tender. No: Guarding, Rigid, Rebound Extremities: Non-Tender, Pedal Edema Consult PN Assessment/Plan Procedures: Procedures APPLY FOREARM SPLINT (11/20/17) ASSAY OF COPPER (07/13/18) ASSAY OF FERRITIN (07/13/18) ASSAY OF FOLIC ACID SERUM (07/13/18) ASSAY OF NATRIURETIC PEPTIDE (07/13/18) ASSAY OF TROPONIN QUANT (07/13/18) ASSAY OF VITAMIN A (07/13/18) ASSAY OF ZINC (07/13/18) BLOOD TRANSFUSION SERVICE (07/13/18) BLOOD TYPING SEROLOGIC ABO (07/13/18) BLOOD TYPING SEROLOGIC RH(D) (07/13/18) CHORIONIC GONADOTROPIN TEST (07/14/18) COMPATIBILITY TEST ANTIGLOB (07/13/18) COMPATIBILITY TEST SPIN (07/13/18) COMPLETE CBC W/AUTO DIFF WBC (07/13/18) COMPREHEN METABOLIC PANEL (07/13/18) CT ABD & PELV W/CONTRAST (08/11/18) CULTURE SCREEN ONLY (07/28/16) DRAINAGE OF GUM LESION (05/23/16) EGD BIOPSY SINGLE/MULTIPLE (07/28/16) ELECTROCARDIOGRAM TRACING (07/13/18) EMERGENCY DEPT VISIT (07/13/18) EMERGENCY DEPT VISIT (05/23/16) EMERGENCY DEPT VISIT (12/02/15) HEMOGLOBIN (07/15/18) HOT OR COLD PACKS THERAPY (06/30/18) HYDRATE IV INFUSION ADD-ON (08/08/16) MANUAL THERAPY 1/> REGIONS (07/12/18) MRI JNT OF LWR EXTRE W/O DYE (03/15/18) MRI JOINT UPR EXTREM W/O DYE (04/21/18) MRI UPPER EXTREMITY W/O DYE (04/14/18) ORTHOTIC MGMT&TRAINJ 1ST ENC (05/30/18) OT EVAL MOD COMPLEX 45 MIN (05/30/18) PARAFFIN BATH THERAPY (07/12/18) RBC ANTIBODY SCREEN (07/13/18) ROUTINE VENIPUNCTURE (07/15/18) THER/PROPH/DIAG INJ IV PUSH (07/13/18) THERAPEUTIC EXERCISES (06/30/18) TRANSVAGINAL US NON-OB (07/14/18) TX/PRO/DX INJ NEW DRUG ADDON (08/08/16) ULTRASOUND THERAPY (07/12/18) URINALYSIS AUTO W/SCOPE (08/08/16) US EXAM PELVIC COMPLETE (07/14/18) VITAMIN B-12 (07/13/18) VITAMIN D 25 HYDROXY (07/13/18) X-RAY EXAM CHEST 1 VIEW (07/13/18) X-RAY EXAM OF HAND (11/20/17) X-RAY EXAM OF SHOULDER (10/16/15) Problem List Initiated/Reviewed/Updated: Yes My Orders Last 24 Hours: My Active Orders 08/17/18 17:00 POTASSIUM,K [CHEM] Stat 08/17/18 20:00 Furosemide [Lasix] 20 mg IVPUSH Q12H Plan: ASSESSMENT AND RECOMMENDATIONS PERIPHERAL EDEMA-significant edema both lower extremities, marked improvement over the last 24 hours with excellent diuresis -Discontinue IV fluids -Furosemide 20 mg IV every 12 hours -Reassess in a.m. HYPOKALEMIA -IV and oral potassium replacement -Recheck potassium level later this afternoon and again tomorrow morning STATUS POST SURGICAL REPAIR OF VAGINAL CYSTIC FISTULA-does have some drainage from the wound with somewhat of a foul odor -Wound follow-up per surgical service -Postoperative care per Dr. Gonsalez
[2018-08-17] MEDS: Pantoprazole 40 MG Tab.CR PO SCH (16:16)
--- NOTE | 2018-08-17 16:31 | PN ---
DATE OF SERVICE: 08/17/2018 SUBJECTIVE: Ewelina had a potassium this morning of 2.6 and hemoglobin of 8.6. She is having 2236 oral intake. RUSS drains have put out 250 and 25 mL of a light yellow drainage. Remainder review of systems negative for any pertinent positives and negatives. OBJECTIVE: GENERAL: Ewelina Grove is a pleasant 43-year-old female in no acute distress. VITAL SIGNS: TPR are 97.2, 97, and 20; blood pressure 113/68. HEENT: Negative. NECK: Supple. HEART: Regular rate and rhythm. LUNGS: Clear. ABDOMEN: Dressings dry and intact. RUSS drains intact. Abdominal binder is on. EXTREMITIES: Marked peripheral edema. ASSESSMENT: 1. Pelvic exam under anesthesia. 2. Exploratory laparotomy with lysis of extensive adhesions: a. Closure of vesicovaginal fistula. b. Placement of Interceed mesh over lower abdominopelvic wall to displace underlying viscera and limit recurrent adhesion formation. c. Vesicovaginal fistula and extensive intraabdominal adhesions. Date of surgery 08/12/2018. Surgeon, Errol Gonsalez MD. 3. Delayed primary closure for open abdominal incision on 08/14/2018. PLAN: 1. Discontinue RUSS drains. 2. Type and cross 2 units of packed red blood cells. 3. Give 1 unit of packed red blood cells. 4. Potassium orders per Morris Parham MD, who had already ordered those. Check CBC, CMP, magnesium, and phosphorus in a.m. Good pulmonary toilet. We will evaluate p.r.n. or in the a.m. Kathryn Wright PA-C /[id number]
[2018-08-17] MEDS ORDERED: Potassium Chloride 20 MEQ in Premix Bag 3 BAG IV ONE (18:30)
[2018-08-17] MEDS ORDERED: Lidocaine 1% 20 ML MDV INJECT PRN (18:56)
[2018-08-17] MEDS: Potassium Chloride 20 MEQ in Premix Bag 1 BAG IV SCH (19:32)
[2018-08-17] MEDS ORDERED: diphenhydrAMINE 50 MG/ML SDV IVPUSH PRN (20:29)
--- NOTE | 2018-08-17 23:47 | PCM.SN ---
- Free Text/Narrative Note: Time: 2334 call from 2 [facility]; evaluation of lower leg rash. reports has allergy to Procaine currently finished one bag of IV Potassium with Lidocaine. given IV Benadryl 50 mg at 8:05 pm S: reports legs feel heavy, denies pain, shortness of breath or chest pain, or pruritus O: vital signs 36.3-102-18 b/p 122/69 o2 sat 95% skin: fine red rash noted to legs. no blisters or wheals noted. no tenderness to palpations A: rash, concerns medication reaction to Lidocaine P: DC next IV bag of Potassium, convert to PO. continue IV Benadryl 50 mg every 4 hours continue present plan of care.
[2018-08-18] MEDS: Acetaminophen/oxyCODONE 325-5 MG Tab PO PRN ×5 (01:50→20:48)
[2018-08-18] MEDS: Cyclobenzaprine 10 MG Tab PO PRN ×3 (01:50→14:57)
[2018-08-18] MEDS ORDERED: Furosemide 20 MG/2 ML VIAL IVPUSH STA (06:45)
[2018-08-18] MEDS: Albuterol/Ipratropium 3.0-0.5 MG/3 ML Neb Soln INH SCH ×4 (07:21→20:45)
[2018-08-18] MEDS: Levothyroxine 50 MCG Tab PO SCH (08:28)
[2018-08-18] MEDS: Nicotine 21 MG/24 Hr Patch TRDERM SCH (08:28)
[2018-08-18] MEDS: Gabapentin 300 MG Cap PO SCH ×3 (08:29→20:38)
[2018-08-18] MEDS: [UNRECOGNIZED DRUG - OTHER] PO PRN (08:31)
[2018-08-18] MEDS ORDERED: Furosemide 20 MG/2 ML VIAL IVPUSH SCH ×2 (09:00→21:00)
[2018-08-18] MEDS: Potassium Chloride 20 MEQ Tab.ER PO SCH ×3 (09:28→16:35)
--- NOTE | 2018-08-18 10:46 | PN ---
DATE OF SERVICE: 08/18/2018 SUBJECTIVE: Ewelina states her pain is better controlled. She did get 1 unit of packed red blood cells yesterday. Hemoglobin 9.9, potassium is 3, albumin is 3. Vital signs have been stable. Oral intake 1750. Urine output via Buchanan catheter 4385. RUSS drain 1 and 2 have put out 50 and 10 respectively of a light pink drainage. REVIEW OF SYSTEMS: Remainder of review of systems negative for any pertinent positives and negatives. OBJECTIVE: GENERAL: Ewelina Grove is a pleasant 43-year-old female. She looks better today. VITAL SIGNS: TPR is 97.2, 116, blood pressure 133/79. HEENT: Negative. NECK: Supple. HEART: Regular rate and rhythm. LUNGS: Clear. ABDOMEN: Incision was examined, zachariah intact. Abdominal binder has been on. SKIN: Looks much better. It is less red. No rash noted. EXTREMITIES: Remain to have peripheral edema, but much less. She has her thigh-high [place] hose off and she wears them during the day. ASSESSMENT: 1. Low potassium at 3. 2. Marked peripheral edema. 3. Low albumin. 4. Pelvic exam under anesthesia. 5. Exploratory laparotomy with lysis of extensive adhesions. Closure of vesicovaginal fistula. Placement of Interceed mesh over lower abdominopelvic wall to displace underlying viscera and limit recurrent adhesion formation. Vesicovaginal fistula and extensive intraabdominal adhesions. Date of surgery 08/12/2018. Surgeon, Errol Gonsalez MD. 6. Delayed primary closure for open abdominal incision on 08/14/2018. Surgeon, Errol Gonsalez MD. PLAN: 1. Rx: KCl p.o. 40 mEq t.i.d. 2. Lasix 20 mg IV t.i.d. 3. Check CBC, CMP, mag, and phos in a.m. 4. Albumin 50 g IV today. 5. Good pulmonary toilet. 6. We will evaluate p.r.n. or in a.m. 7. Plan to discharge in a.m. Kathryn Wright PA-C /[id number]
[2018-08-18] MEDS: Potassium Chloride 20 MEQ in Premix Bag 1 BAG IV SCH ×2 (12:21→12:22)
--- NOTE | 2018-08-18 12:34 | PCM.CONSN ---
- General Info Date of Service: 08/18/18 Subjective Update: Ms. Grove experienced further good diuresis yesterday, continues to experience significant hypokalemia despite aggressive oral replacement. Edema has significantly improved in the lower extremities she continues to have pitting edema around the upper thighs buttocks and her sacral region. - Review of Systems General: Reports: Weakness. Denies: Fever, Chills Pulmonary: Reports: No Symptoms Cardiovascular: Reports: Edema. Denies: Chest Pain, Palpitations, Dyspnea on Exertion, Orthopnea, PND, Lightheadedness Gastrointestinal: Reports: No Symptoms - Patient Data Vitals - Most Recent: Last Vital Signs Temp 96.2 F 08/18/18 11:49 Pulse 105 H 08/18/18 11:49 Resp 16 08/18/18 11:49 BP 128/75 08/18/18 11:49 Pulse Ox 96 08/18/18 11:49 Weight - Most Recent: 192 lb 0.009 oz I&O - Last 24 Hours: Intake & Output 08/17/18 08/18/18 08/18/18 22:59 06:59 14:59 Intake Total 985 1000 100 Output Total 4309 209 1003 Balance -625 300 -2800 Lab Results Last 24 Hours: Laboratory Results - last 24 hr 08/17/18 08/17/18 08/18/18 Range/Units 08:21 17:00 04:23 WBC 3.4 L (4.5-11.0) K/uL RBC 3.22 L (3.30-5.50) M/uL Hgb 9.9 L (12.0-15.0) g/dL Hct 31.7 L (36.0-48.0) % MCV 98 (80-98) fL MCH 31 (27-31) pg MCHC 31 L (32-36) % Plt Count 196 (150-400) K/uL Sodium (140-148) mmol/L Potassium 2.5 L* (3.6-5.2) mmol/L Chloride (100-108) mmol/L Carbon Dioxide (21-32) mmol/L Anion Gap (5.0-14.0) mmol/L BUN (7-18) mg/dL Creatinine (0.6-1.0) mg/dL Est Cr Clr Drug Dosing mL/min Estimated GFR (MDRD) (>60) Glucose (74-106) mg/dL Calcium (8.5-10.1) mg/dL Phosphorus (2.5-4.9) mg/dL Magnesium (1.8-2.4) mg/dL Total Bilirubin (0.2-1.0) mg/dL AST (15-37) U/L ALT (12-78) U/L Alkaline Phosphatase (46-116) U/L Total Protein (6.4-8.2) g/dL Albumin (3.4-5.0) g/dL Globulin (2.3-3.5) g/dL Albumin/Globulin Ratio (1.2-2.2) Blood Type O POSITIVE Gel Antibody Screen Negative Crossmatch See Detail 08/18/18 Range/Units 04:23 WBC (4.5-11.0) K/uL RBC (3.30-5.50) M/uL Hgb (12.0-15.0) g/dL Hct (36.0-48.0) % MCV (80-98) fL MCH (27-31) pg MCHC (32-36) % Plt Count (150-400) K/uL Sodium 144 (140-148) mmol/L Potassium 3.0 L (3.6-5.2) mmol/L Chloride 107 (100-108) mmol/L Carbon Dioxide 28 (21-32) mmol/L Anion Gap 12.0 (5.0-14.0) mmol/L BUN 0 L D (7-18) mg/dL Creatinine 0.6 (0.6-1.0) mg/dL Est Cr Clr Drug Dosing 106.37 mL/min Estimated GFR (MDRD) > 60 (>60) Glucose 81 (74-106) mg/dL Calcium 8.8 (8.5-10.1) mg/dL Phosphorus 2.6 (2.5-4.9) mg/dL Magnesium 1.9 (1.8-2.4) mg/dL Total Bilirubin 1.0 (0.2-1.0) mg/dL AST 20 (15-37) U/L ALT 21 (12-78) U/L Alkaline Phosphatase 93 (46-116) U/L Total Protein 5.6 L (6.4-8.2) g/dL Albumin 3.0 L (3.4-5.0) g/dL Globulin 2.6 (2.3-3.5) g/dL Albumin/Globulin Ratio 1.2 (1.2-2.2) Blood Type Gel Antibody Screen Crossmatch Med Orders - Current: Current Medications Albuterol/Ipratropium (Duoneb 3.0-0.5 Mg/3 Ml) 3 ml INH QIDRT [facility]ILLY Last Admin: 08/18/18 10:43 Dose: 3 ml Albuterol/Ipratropium (Duoneb 3.0-0.5 Mg/3 Ml) 3 ml INH ASDIRECTED PRN PRN Reason: RESP Belladonna Alkaloids/Opium (B & O Supprettes No. 15a) 1 supp RECTAL Q4H PRN PRN Reason: BLADDER SPASM Cyclobenzaprine HCl (Flexeril) 10 mg PO Q6H PRN PRN Reason: MUSCLE SPASM Last Admin: 08/18/18 08:25 Dose: 10 mg Diphenhydramine HCl (Benadryl) 50 mg IVPUSH Q4H PRN PRN Reason: Rash Last Admin: 08/17/18 20:50 Dose: 50 mg Furosemide (Lasix) 20 mg IV Q12H [facility] Gabapentin (Neurontin) 300 mg PO TID [facility] Last Admin: 08/18/18 08:29 Dose: 300 mg Hydroxyzine HCl (Vistaril) 100 mg IM Q4H PRN PRN Reason: PAIN Last Admin: 08/15/18 23:00 Dose: 100 mg Albumin Human (Albumin 25%) 25 gm in 100 mls @ 25 mls/hr IV Q4H [facility] Stop: 08/18/18 16:29 Last Admin: 08/18/18 09:28 Dose: 25 mls/hr Levothyroxine Sodium (Synthroid) 50 mcg PO ACBREAKFAST [facility] Last Admin: 08/18/18 08:28 Dose: 50 mcg Magnesium Hydroxide (Milk Of Magnesia) 30 ml PO ASDIRECTED PRN PRN Reason: Constipation Last Admin: 08/14/18 11:11 Dose: 30 ml Miscellaneous Information (Remove Patch) 1 ea TRDERM BEDTIME [facility] Last Admin: 08/17/18 20:33 Dose: Not Given Nicotine (Habitrol) 21 mg TRDERM DAILY [facility] Last Admin: 08/18/18 08:28 Dose: 21 mg Ondansetron HCl (Zofran) 4 mg IVPUSH Q4H PRN PRN Reason: Nausea Oxycodone/Acetaminophen (Percocet 325-5 Mg) 1 tab PO Q4H PRN PRN Reason: paiin Last Admin: 08/18/18 08:25 Dose: 1 tab Pantoprazole Sodium (Protonix) 40 mg PO Q24H [facility] Last Admin: 08/17/18 16:16 Dose: 40 mg Whisky Shot (Ptom) 0 each PO 6XDAY PRN PRN Reason: PER PATIENT PREFERENCE Last Admin: 08/18/18 08:31 Dose: 1 each Potassium Chloride (Klor-Con M20) 40 meq PO TIDMEALS [facility] Last Admin: 08/18/18 09:28 Dose: 40 meq Discontinued Medications Acetaminophen (Tylenol Extra Strength) 1,000 mg PO ONETIME ONE Stop: 08/12/18 09:16 Last Admin: 08/12/18 10:07 Dose: 1,000 mg Bisacodyl (Dulcolax) 10 mg PO BID [facility] Last Admin: 08/16/18 20:03 Dose: 10 mg Bupivacaine HCl (Marcaine 0.5%) Confirm Administered Dose 50 ml .ROUTE .STK-MED ONE Stop: 08/14/18 06:53 Last Admin: 08/14/18 07:59 Dose: 20 ml Ropivacaine 45 ml/Dexamethasone 8 mg/Epinephrine HCl 0.4 mg/ Sodium Chloride 32.6 ml 0 ml NERVRT ASDIRECTED [facility] Last Admin: 08/12/18 12:00 Dose: 80 syringe Ropivacaine 45 ml/Dexamethasone 8 mg/Epinephrine HCl 0.4 mg/ Sodium Chloride 32.6 ml 0 ml NERVRT ASDIRECTED [facility] Last Admin: 08/14/18 08:04 Dose: 80 syringe Dexamethasone (Dexamethasone) Confirm Administered Dose 4 mg .ROUTE .STK-MED ONE Stop: 08/12/18 11:04 Fentanyl (Sublimaze) Confirm Administered Dose 100 mcg .ROUTE .STK-MED ONE Stop: 08/12/18 11:03 Fentanyl (Sublimaze) Confirm Administered Dose 250 mcg .ROUTE .STK-MED ONE Stop: 08/12/18 11:06 Fentanyl (Sublimaze) Confirm Administered Dose 250 mcg .ROUTE .STK-MED ONE Stop: 08/12/18 11:45 Fentanyl (Sublimaze) Confirm Administered Dose 100 mcg .ROUTE .STK-MED ONE Stop: 08/14/18 07:21 Fluorescein Sodium (Ak-Fluor) Confirm Administered Dose 5 ml .ROUTE .STK-MED ONE Stop: 08/12/18 13:04 Furosemide (Lasix) Confirm Administered Dose 20 mg .ROUTE .STK-MED ONE Stop: 08/12/18 13:12 Furosemide (Lasix) 20 mg IVPUSH NOW ONE Stop: 08/15/18 11:53 Last Admin: 08/15/18 12:08 Dose: 20 mg Furosemide (Lasix) 20 mg IV ONETIME ONE Stop: 08/15/18 21:01 Last Admin: 08/15/18 21:24 Dose: 20 mg Furosemide (Lasix) 20 mg IVPUSH NOW ONE Stop: 08/16/18 10:01 Last Admin: 08/16/18 09:57 Dose: 20 mg Furosemide (Lasix) 20 mg IVPUSH Q8H [facility] Last Admin: 08/17/18 07:26 Dose: 20 mg Furosemide (Lasix) 20 mg IVPUSH Q12H [facility] Furosemide (Lasix) 20 mg IVPUSH Q12H [facility] Last Admin: 08/17/18 19:05 Dose: Not Given Furosemide (Lasix) 20 mg IVPUSH NOW STA Stop: 08/18/18 06:46 Last Admin: 08/18/18 07:27 Dose: 20 mg Furosemide (Lasix) 20 mg IVPUSH TID [facility] Stop: 08/18/18 23:00 Last Admin: 08/18/18 09:28 Dose: 20 mg Gabapentin (Neurontin) 300 mg PO ONETIME ONE Stop: 08/12/18 10:01 Last Admin: 08/12/18 10:07 Dose: 300 mg Glycopyrrolate (Robinul) Confirm Administered Dose 1 mg .ROUTE .STK-MED ONE Stop: 08/12/18 11:04 Hydromorphone HCl (Dilaudid Casting Machine Operator Helper 15 Mg In Ns 30 Ml) 0 mg IV ASDIRECTED PRN; Protocol PRN Reason: Pain Last Admin: 08/13/18 17:02 Dose: 15 mg Cefoxitin Sodium 2 gm/ Sodium (Chloride) 50 mls @ 100 mls/hr IV ONETIME ONE Stop: 08/12/18 11:14 Last Admin: 08/12/18 11:25 Dose: 100 mls/hr Dextrose/Lactated Ringer's (Dextrose 5%-Lactated Ringers) 1,000 mls @ 100 mls/ hr IV ASDIRECTED [facility] Last Admin: 08/12/18 15:45 Dose: 100 mls/hr Ketamine HCl 50 mg/ Sodium (Chloride) 50 mls @ 17.4 mls/hr IV ASDIRECTED [facility] Lactated Ringer's (Ringers, Lactated) Confirm Administered Dose 1,000 mls @ as directed .ROUTE .STK-MED ONE Stop: 08/12/18 12:56 Dextrose/Lactated Ringer's (Dextrose 5%-Lactated Ringers) 1,000 mls @ 150 mls/ hr IV ASDIRECTED [facility] Last Admin: 08/13/18 12:37 Dose: 150 mls/hr Cefoxitin Sodium 2 gm/ Sodium (Chloride) 50 mls @ 100 mls/hr IV Q6H [facility] Last Admin: 08/17/18 12:05 Dose: 100 mls/hr Dextrose/Lactated Ringer's (Dextrose 5%-Lactated Ringers) 1,000 mls @ 100 mls/ hr IV ASDIRECTED [facility] Last Admin: 08/15/18 03:27 Dose: 100 mls/hr Lactated Ringer's (Ringers, Lactated) 500 mls @ 500 mls/hr IV .BOLUS [facility] Stop: 08/14/18 05:45 Last Admin: 08/14/18 04:51 Dose: 500 mls/hr Lidocaine HCl (Xylocaine-Mpf 1%) Confirm Administered Dose 2 mls @ as directed .ROUTE .ST-MED ONE Stop: 08/14/18 07:24 Sodium Chloride (Normal Saline) Confirm Administered Dose 10 mls @ as directed .ROUTE .[facility]-MED ONE Stop: 08/14/18 07:47 Magnesium Sulfate 2 gm/ Premix 50 mls @ 25 mls/hr IV Q6H [facility] Stop: 08/17/18 05:59 Last Admin: 08/17/18 03:11 Dose: 25 mls/hr Albumin Human (Albumin 25%) 25 gm in 100 mls @ 25 mls/hr IV Q24H [facility] Stop: 08/17/18 13:59 Last Admin: 08/17/18 09:48 Dose: 25 mls/hr Albumin Human (Albumin 25%) 25 gm in 100 mls @ 25 mls/hr IV Q24H [facility] Stop: 08/17/18 17:59 Last Admin: 08/17/18 13:50 Dose: 25 mls/hr Potassium Phosphate 20 mmole/ (Sodium Chloride) 256.6667 mls @ 85.556 mls/hr IV Q3H [facility] Stop: 08/14/18 20:59 Last Admin: 08/14/18 18:08 Dose: 85.556 mls/hr Potassium Phosphate 20 mmole/ (Sodium Chloride) 256.6667 mls @ 85 mls/hr IV Q3H [facility] Stop: 08/15/18 18:29 Last Admin: 08/15/18 16:34 Dose: 85 mls/hr Potassium Chloride 20 meq/ (Premix) 100 mls @ 50 mls/hr IV Q2H [facility] Stop: 08/17/18 10:50 Last Admin: 08/17/18 09:47 Dose: 50 mls/hr Potassium Phosphate 45 mmole/ (Sodium Chloride) 265 mls @ 85.556 mls/hr IV ONETIME [facility] Potassium Chloride 20 meq/Lidocaine HCl 2 ml/ Sodium Chloride 112 mls @ 56 mls/ hr IV Q2H [facility] Stop: 08/17/18 13:59 Last Admin: 08/17/18 13:05 Dose: 56 mls/hr Potassium Chloride 20 meq/ (Premix) 0 mls @ 50 mls/hr IV ONETIME ONE Stop: 08/17/18 18:31 Potassium Chloride 20 meq/ (Premix) 100 mls @ 50 mls/hr IV Q2H [facility] Stop: 08/18/18 01:59 Last Admin: 08/18/18 12:22 Dose: Not Given Ketamine HCl (Ketalar) 29 mg IV ASDIRECTED [facility] Ketoconazole (Nizoral 2% Crm) 0 gm TOP ONETIME ONE Stop: 08/12/18 13:51 Last Admin: 08/12/18 16:14 Dose: Not Given Ketorolac Tromethamine (Toradol) Confirm Administered Dose 60 mg .ROUTE .STK- MED ONE Stop: 08/12/18 11:19 Lidocaine HCl (Xylocaine 1%) 20 ml INJECT ONETIME PRN PRN Reason: Other Lidocaine/Epinephrine (Xylocaine 1% With Epinephrine 1:100,000) Confirm Administered Dose 50 ml .ROUTE .STK-MED ONE Stop: 08/14/18 06:51 Last Admin: 08/14/18 07:59 Dose: 20 ml Magnesium Hydroxide (Milk Of Magnesia) 30 ml PO BID PRN PRN Reason: Constipation Last Admin: 08/13/18 16:04 Dose: 30 ml Meropenem (Merrem) Confirm Administered Dose 500 mg .ROUTE .STK-MED ONE Stop: 08/12/18 11:54 Last Admin: 08/12/18 12:15 Dose: 500 mg Meropenem (Merrem) Confirm Administered Dose 500 mg .ROUTE .STK-MED ONE Stop: 08/14/18 06:53 Last Admin: 08/14/18 08:11 Dose: 500 mg Midazolam HCl (Versed 1 Mg/Ml) Confirm Administered Dose 2 mg .ROUTE .STK-MED ONE Stop: 08/12/18 11:03 Midazolam HCl (Versed 1 Mg/Ml) Confirm Administered Dose 2 mg .ROUTE .STK-MED ONE Stop: 08/14/18 07:22 Naloxone HCl (Narcan) 0.1 mg IV ASDIRECTED PRN PRN Reason: decreased respiratory rate Neostigmine Methylsulfate (Neostigmine) Confirm Administered Dose 5 mg .ROUTE .STK-MED ONE Stop: 08/12/18 11:04 Ondansetron HCl (Zofran) Confirm Administered Dose 4 mg .ROUTE .STK-MED ONE Stop: 08/12/18 11:04 Pantoprazole Sodium (Protonix Iv) 40 mg IV Q24H [facility] Last Admin: 08/13/18 17:28 Dose: 40 mg Potassium Chloride (Klor-Con M20) 40 meq PO DAILY [facility] Last Admin: 08/17/18 08:55 Dose: 40 meq Potassium Chloride (Klor-Con M20) 40 meq PO ONETIME ONE Stop: 08/16/18 12:01 Last Admin: 08/16/18 11:53 Dose: 40 meq Potassium Chloride (Klor-Con M20) 40 meq PO ONETIME ONE Stop: 08/16/18 17:01 Last Admin: 08/16/18 17:00 Dose: 40 meq Potassium Chloride (Klor-Con M20) 40 meq PO ONETIME ONE Stop: 08/17/18 08:16 Last Admin: 08/17/18 08:53 Dose: 40 meq Potassium Chloride (Klor-Con M20) 40 meq PO BID ONE Stop: 08/17/18 08:23 Last Admin: 08/17/18 08:55 Dose: Not Given Potassium Chloride (Klor-Con M20) 40 meq PO ONETIME ONE Stop: 08/17/18 17:59 Last Admin: 08/17/18 18:36 Dose: 40 meq Potassium Chloride (Klor-Con M20) 40 meq PO ONETIME ONE Stop: 08/17/18 20:01 Last Admin: 08/17/18 21:53 Dose: 40 meq Potassium Chloride (Klor-Con M20) 60 meq PO ONETIME ONE Stop: 08/17/18 23:39 Last Admin: 08/18/18 00:18 Dose: 60 meq Propofol (Diprivan 20 Ml) Confirm Administered Dose 200 mg .ROUTE .STK-MED ONE Stop: 08/12/18 11:04 Propofol (Diprivan 20 Ml) Confirm Administered Dose 200 mg .ROUTE .STK-MED ONE Stop: 08/14/18 07:21 Propofol (Diprivan 20 Ml) Confirm Administered Dose 200 mg .ROUTE .STK-MED ONE Stop: 08/14/18 08:21 Rocuronium [place] (Zemuron) Confirm Administered Dose 50 mg .ROUTE .STK-MED ONE Stop: 08/12/18 11:04 Senna/Docusate Sodium (Senna Plus) 2 tab PO BID [facility] Last Admin: 08/16/18 20:03 Dose: 2 tab Succinylcholine Chloride (Quelicin) Confirm Administered Dose 200 mg .ROUTE .STK -MED ONE Stop: 08/12/18 11:04 Sugammadex Sodium (Bridion) Confirm Administered Dose 200 mg .ROUTE .STK-MED ONE Stop: 08/12/18 14:04 - Exam Quality Assessment: Urine Catheter, DVT Prophylaxis General: Alert, Oriented, Cooperative, Mild Distress Lungs: Clear to Auscultation, Normal Respiratory Effort Cardiovascular: Regular Rate, Regular Rhythm, No Murmurs GI/Abdominal Exam: Soft, No Organomegaly, No Distention, Tender. No: Guarding, Rigid, Rebound Extremities: Non-Tender, Pedal Edema Consult PN Assessment/Plan Procedures: Procedures APPLY FOREARM SPLINT (11/20/17) ASSAY OF COPPER (07/13/18) ASSAY OF FERRITIN (07/13/18) ASSAY OF FOLIC ACID SERUM (07/13/18) ASSAY OF NATRIURETIC PEPTIDE (07/13/18) ASSAY OF TROPONIN QUANT (07/13/18) ASSAY OF VITAMIN A (07/13/18) ASSAY OF ZINC (07/13/18) BLOOD TRANSFUSION SERVICE (07/13/18) BLOOD TYPING SEROLOGIC ABO (07/13/18) BLOOD TYPING SEROLOGIC RH(D) (07/13/18) CHORIONIC GONADOTROPIN TEST (07/14/18) COMPATIBILITY TEST ANTIGLOB (07/13/18) COMPATIBILITY TEST SPIN (07/13/18) COMPLETE CBC W/AUTO DIFF WBC (07/13/18) COMPREHEN METABOLIC PANEL (07/13/18) CT ABD & PELV W/CONTRAST (08/11/18) CULTURE SCREEN ONLY (07/28/16) DRAINAGE OF GUM LESION (05/23/16) EGD BIOPSY SINGLE/MULTIPLE (07/28/16) ELECTROCARDIOGRAM TRACING (07/13/18) EMERGENCY DEPT VISIT (07/13/18) EMERGENCY DEPT VISIT (05/23/16) EMERGENCY DEPT VISIT (12/02/15) HEMOGLOBIN (07/15/18) HOT OR COLD PACKS THERAPY (06/30/18) HYDRATE IV INFUSION ADD-ON (08/08/16) MANUAL THERAPY 1/> REGIONS (07/12/18) MRI JNT OF LWR EXTRE W/O DYE (03/15/18) MRI JOINT UPR EXTREM W/O DYE (04/21/18) MRI UPPER EXTREMITY W/O DYE (04/14/18) ORTHOTIC MGMT&TRAINJ 1ST ENC (05/30/18) OT EVAL MOD COMPLEX 45 MIN (05/30/18) PARAFFIN BATH THERAPY (07/12/18) RBC ANTIBODY SCREEN (07/13/18) ROUTINE VENIPUNCTURE (07/15/18) THER/PROPH/DIAG INJ IV PUSH (07/13/18) THERAPEUTIC EXERCISES (06/30/18) TRANSVAGINAL US NON-OB (07/14/18) TX/PRO/DX INJ NEW DRUG ADDON (08/08/16) ULTRASOUND THERAPY (07/12/18) URINALYSIS AUTO W/SCOPE (08/08/16) US EXAM PELVIC COMPLETE (07/14/18) VITAMIN B-12 (07/13/18) VITAMIN D 25 HYDROXY (07/13/18) X-RAY EXAM CHEST 1 VIEW (07/13/18) X-RAY EXAM OF HAND (11/20/17) X-RAY EXAM OF SHOULDER (10/16/15) Problem List Initiated/Reviewed/Updated: Yes My Orders Last 24 Hours: My Active Orders 08/18/18 17:00 POTASSIUM,K [CHEM] Stat 08/18/18 21:00 Furosemide [Lasix] 20 mg IV Q12H Plan: ASSESSMENT AND RECOMMENDATIONS PERIPHERAL EDEMA-edema lower legs is essentially resolved she continues to experience edema upper thighs and buttocks -Furosemide 20 mg IV every 12 hours -Reassess in a.m. HYPOKALEMIA -oral potassium replacement -Recheck potassium level later this afternoon and again tomorrow morning STATUS POST SURGICAL REPAIR OF VAGINAL CYSTIC FISTULA-does have some drainage from the wound with somewhat of a foul odor -Postoperative care per Dr. Gonsalez
[2018-08-18] MEDS: Pantoprazole 40 MG Tab.CR PO SCH (16:34)
[2018-08-18] MEDS ORDERED: Potassium Chloride 20 MEQ Tab.ER PO ONE ×2 (17:30→22:00)
[2018-08-18] MEDS: Spironolactone 25 MG Tab PO SCH (20:45)
[2018-08-18] MEDS ORDERED: Furosemide 20 MG/2 ML VIAL IV SCH (21:00)
[2018-08-19] MEDS: Acetaminophen/oxyCODONE 325-5 MG Tab PO PRN ×2 (01:37→06:54)
[2018-08-19] MEDS: [UNRECOGNIZED DRUG - OTHER] PO PRN (01:55)
[2018-08-19] MEDS ORDERED: Potassium Chloride 20 MEQ Tab.ER PO ONE (02:00)
[2018-08-19] MEDS: Albuterol/Ipratropium 3.0-0.5 MG/3 ML Neb Soln INH SCH (07:00)
[2018-08-19 07:27] VITALS: BP 99/69
[2018-08-19] MEDS: Levothyroxine 50 MCG Tab PO SCH (07:32)
[2018-08-19] MEDS: Gabapentin 300 MG Cap PO SCH (08:29)
[2018-08-19] MEDS: Spironolactone 25 MG Tab PO SCH (08:29)
[2018-08-19] MEDS: Potassium Chloride 20 MEQ Tab.ER PO SCH (08:52)
[2018-08-19] MEDS: Nicotine 21 MG/24 Hr Patch TRDERM SCH (10:33)
--- NOTE | 2018-08-19 14:13 | DISCH ---
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 DISCHARGE DIAGNOSES: 1. Pelvic examination under general anesthesia. 2. Exploratory laparotomy with lysis of extensive adhesions and: a. Closure of vesicovaginal fistula. b. Placement of Interceed mesh over lower abdominal and pelvic wall to displace underlying viscera and limit recurrent adhesion formation for vesicovaginal fistula and extensive intraabdominal adhesions. Date of surgery 08/12/2018. Surgeon, Errol Gonsalez MD. 3. Delayed primary closure 08/14/2018 for open abdominal incision. HISTORY: Ewelina is a 43-year-old female who is status post hysterectomy. During the early postoperative period, the patient developed alcohol withdrawal syndrome and was delirious for several days. This extended her hospitalization by 2 weeks. During this time, the patient was noted to have pulled on the Buchanan catheter on several occasion and 1 time pulled the whole catheter out. This may be the underlying cause of the vesicovaginal fistula. After preoperative evaluation and discussion of possible risks and possible complications, she wished to proceed with surgical procedure. HOSPITAL COURSE: Surgery was on 08/12/2018. No operative complications. Delayed primary closure on 08/14/2018 with no operative complications. Ewelina was started on a regular diet. She did have a lot of peripheral trunk and peripheral edema. She was started on Lasix and potassium for low potassium secondary to the Lasix. She also was given IV albumin to help with low albumin secondary to malnutrition. On 08/16/2018, she continually gradually improved. She diuresed quite a bit via the Buchanan catheter. Potassium continued to be replaced. On 08/17/2018, hemoglobin was 8.6. She was given 1 unit of packed red blood cells and her RUSS drains were discontinued. On 08/18/2018, she gradually started to feel better. Her activity was better. Labs did improve. Her hemoglobin was 9.9. Potassium was 3. She was given IV and oral KCl along with 50 g of albumin. On 08/19/2018, she was able to be discharged to home. She did not have any alcohol withdrawal or DTs and was prescribed whiskey shots 6 times a day p.r.n. to avoid any of these complications. Her activity was good. She was able to ambulate in the halls frequently. Vital signs were stable. Oral intake adequate. Output adequate. Swelling had considerably decreased in her lower extremities and pain was well managed. On day of discharge; her hemoglobin was 9.6, hematocrit was 30.9, potassium was 4.3, magnesium was 1.6, albumin 3.1 and total protein was 5.8. PHYSICAL EXAMINATION: GENERAL: Ewelina is a pleasant 43-year-old female. VITAL SIGNS: Height is 5 feet and 4.96 inches. Weight is 188 pounds. TPR is 96, 99, 16, blood pressure 99/69. HEENT: Negative. NECK: Supple. HEART: Regular rate and rhythm. LUNGS: Clear. ABDOMEN: Incision looks good. Amanda intact. EXTREMITIES: With trace peripheral edema bilaterally. NEUROLOGIC: Intact. SKIN: Color remains pale. DISPOSITION: Stable. DISPOSITION: Discharged to home. FOLLOWUP APPOINTMENT: With Errol Gonsalez 08/24/2018 at 12:30 p.m. HOME MEDICATIONS: 1. Percocet 5/325 mg one tablet every 6 hours p.r.n. pain. Her insurance would allow her 20 tablets. 2. Lasix 40 mg oral daily. 3. Magnesium oral daily #100 and 4 refills. 4. Potassium chloride 40 mEq daily #30 one refill. 5. Aldactone 25 mg oral twice daily #60 and one refill. She is to resume home medications of: 1. ProAir 1 to 2 puffs inhalation every 4 hours p.r.n. shortness of breath. 2. Vitamin D3, 400 international units daily. 3. Vitamin B12, 1000 mcg sublingual daily. 4. Gabapentin 300 mg oral 3 times a day. 5. Synthroid 50 mcg before breakfast. 6. Multivitamin 1 daily. 7. Vitron C 1 b.i.d. DISCHARGE INSTRUCTIONS: Diet after discharge: Usual diet as tolerated. Drink 8 to 10 glasses of water a day. Activity: As tolerated. No lifting greater than 10 pounds for 4 weeks. Other activity: Walk at least 6 times daily inside your home. Driving: Do not drive for 1 week and while on pain medication. Shower/bathing: May shower. No tub bathing or swimming for 8 weeks. DISCHARGE INSTRUCTIONS: Notify provider if any fever, increased pain, nausea, or vomiting. Keep site clean and dry. Wear abdominal binder for 4 weeks. Use incentive spirometer 10 times every hour while awake.
== END 2018-08-19 10:43 | disposition home or self-care (01) | DRG 518 ==
LOC: JP.SDSSCHI 08:51 → JP.SDS 08:51 → EDSTATUS 10:00 → JP.MS 14:10
PROVIDERS: ADMIT Surgery; ATTEND Surgery
PROC: 0UBG8ZZ Excision of Vagina, Via Natural or Artificial Opening Endoscopic (ICD-10-PCS; principal; 2018-08-12)
PROC: 0TBB8ZZ Excision of Bladder, Via Natural or Artificial Opening Endoscopic (ICD-10-PCS; 2018-08-12)
PROC: 0DNU0ZZ Release Omentum, Open Approach (ICD-10-PCS; 2018-08-12)
PROC: 0DN80ZZ Release Small Intestine, Open Approach (ICD-10-PCS; 2018-08-12)
PROC: 0DNW0ZZ Release Peritoneum, Open Approach (ICD-10-PCS; 2018-08-12)
PROC: 0UJH8ZZ Inspection of Vagina and Cul-de-sac, Via Natural or Artificial Opening Endoscopic (ICD-10-PCS; 2018-08-12)
PROC: 3E0M05Z Introduction of Adhesion Barrier into Peritoneal Cavity, Open Approach (ICD-10-PCS; 2018-08-12)
PROC: 0WQF0ZZ Repair Abdominal Wall, Open Approach (ICD-10-PCS; 2018-08-14)
PROC: 30233N1 Transfusion of Nonautologous Red Blood Cells into Peripheral Vein, Percutaneous Approach (ICD-10-PCS; 2018-08-17)
DX: N82.0 Vesicovaginal fistula (principal); K66.0 Peritoneal adhesions (postprocedural) (postinfection); Y84.6 Urinary catheterization as the cause of abnormal reaction of the patient, or of later complication, without mention of misadventure at the time of the procedure; Z98.890 Other specified postprocedural states; T83.098A Other mechanical complication of other urinary catheter, initial encounter; F17.210 Nicotine dependence, cigarettes, uncomplicated; R60.9 Edema, unspecified; K91.2 Postsurgical malabsorption, not elsewhere classified; Z98.84 Bariatric surgery status; Z98.0 Intestinal bypass and anastomosis status; E53.8 Deficiency of other specified B group vitamins; E03.9 Hypothyroidism, unspecified; D50.9 Iron deficiency anemia, unspecified; E55.9 Vitamin D deficiency, unspecified; E53.9 Vitamin B deficiency, unspecified; K21.9 Gastro-esophageal reflux disease without esophagitis; F10.20 Alcohol dependence, uncomplicated; E88.09 Other disorders of plasma-protein metabolism, not elsewhere classified; E46 Unspecified protein-calorie malnutrition; Z68.31 Body mass index [BMI] 31.0-31.9, adult; E87.6 Hypokalemia; L27.0 Generalized skin eruption due to drugs and medicaments taken internally; T41.3X5A Adverse effect of local anesthetics, initial encounter; Y92.239 Unspecified place in hospital as the place of occurrence of the external cause; Z88.1 Allergy status to other antibiotic agents; Z88.8 Allergy status to other drugs, medicaments and biological substances
CPT/HCPCS: 36415; 36430; 80048; 80053; 82570; 82728; 83735; 84100; 84132; 85027; 86850; 86900; 86901; 86920; 86922; 94640; 94762; 97110-GP; 97162-GP; 97530-GP; 97535-GP; A9270-GY; C1874; C9113; C9399; J0171; J0330; J0694; J1100; J1170; J1200; J1885; J1940; J2001; J2185; J2250; J2405; J2704; J2710; J2795; J3010; J3410; J3475; J3480; J3490; J7030; J7042; J7050; J7120; J7620-GY; P9016; P9047

== ENCOUNTER 2018-11-25 09:02 | Day surgery (SDC) | payer BC ==
[2018-11-25] MEDS ORDERED: Dextrose 5%-Lactated Ringers 1,000 ML IV SCH (10:00)
[2018-11-25] MEDS ORDERED: ceFAZolin 2 GM in Sodium Chloride 0.9% 50 ML IV ONE (10:00)
[2018-11-25] MEDS ORDERED: ceFAZolin 1 GM Vial ONE (10:52)
[2018-11-25] MEDS ORDERED: Lidocaine 1% with EPINEPHrine 1:100,000 50 ML MDV ONE (10:53)
[2018-11-25] MEDS ORDERED: Bupivacaine 0.5% 50 ML MDV ONE (10:53)
[2018-11-25] MEDS ORDERED: fentaNYL 250 MCG/5 ML SDV ONE (11:40)
[2018-11-25] MEDS ORDERED: Rocuronium 50 MG/5 ML Vial ONE (11:43)
[2018-11-25] MEDS ORDERED: Propofol 200 MG/20 ML SDV ONE (11:43)
[2018-11-25] MEDS ORDERED: Neostigmine Methylsulfate 1 MG/ML 5 ML Syringe ONE (11:43)
[2018-11-25] MEDS ORDERED: Dexamethasone 4 MG/ML SDV ONE (11:43)
[2018-11-25] MEDS ORDERED: Glycopyrrolate 0.2 MG/ML 5 ML MDV ONE (11:43)
[2018-11-25] MEDS ORDERED: Ondansetron 4 MG/2 ML SDV ONE (11:43)
[2018-11-25] MEDS ORDERED: fentaNYL 100 MCG/2 ML SDV ONE (12:08)
[2018-11-25] MEDS ORDERED: Ketorolac 60 MG/2 ML SDV IM ONE (12:20)
[2018-11-25 13:47] VITALS: BP 129/68; PULSE 75
--- NOTE | 2018-11-26 08:40 | OR ---
DATE OF PROCEDURE: 11/25/2018 SURGEON: Errol Gonsalez MD PREOPERATIVE DIAGNOSIS: Probable painful neuroma, left lateral aspect of Pfannenstiel incision. POSTOPERATIVE DIAGNOSES: 1. Painful neuroma, left lateral Pfannenstiel incision. 2. Focal incisional hernia underlying a neuroma. PROCEDURE: 1. Excision of a neuroma involving the left lateral Pfannenstiel incision (79181). 2. Repair of incisional hernia involving left lateral aspect of Pfannenstiel incision (95975). ANESTHESIA: General. INDICATIONS FOR PROCEDURE: This is a 43-year-old female presenting with some persistent pain with a painful nodule on the lateral aspect of Pfannenstiel incision, suggestive of a neuroma. At this point, she wishes to proceed with exploration and re-excision of that area. Potential risks including bleeding, infection, possible incomplete relief of symptoms, the likelihood of some areas of anesthesia medial to the area of the excision of neuroma were gone over, and the patient wishes to proceed. DETAILS OF PROCEDURE: The patient was taken to the operating room and placed in a supine position. After general endotracheal anesthesia was induced, the lower abdomen and groin areas were prepped and draped. The palpable nodule was then reestablished. It had been marked in the preoperative holding area, and a transversely oriented incision was made over this, carried down through the skin and subcutaneous tissue. Initially, some nodular tissue consisting of some scar and subcutaneous tissue was removed. Below this in the fascia level, there was a firm ridge of fascia and subfascial tissue which was quite hard and probably contained the neuroma with that nerve being entrapped at the time of closure of the incision. This tissue was then removed in 2 parts, and in one of the parts what appeared to be ilioinguinal nerve could be seen entering the scar. Upon removal of these areas, the area of the painful nodularity appeared to have been successfully excised. The patient did have a small incisional hernia just medial to that with separation of the rectus sheath and the posterior rectus sheath and that point of peritoneum prolapsing upward with muscle being . This area was then closed with a running #1 Vicryl stitch. Otherwise, the wound was then anesthetized with 0.5% Marcaine mixed with lidocaine and incision closed with 2 layers of 3-0 and 4-0 Vicryl stitch deep and then a 4-0 Vicryl subcuticular stitch. Dressing applied. The patient was taken to the recovery room in satisfactory condition. Errol Gonsalez MD /[id number]
== END 2018-11-25 13:53 | disposition home or self-care (01) ==
LOC: JP.SDS 09:02
PROVIDERS: ATTEND Surgery
DX: K43.2 Incisional hernia without obstruction or gangrene (principal); D36.16 Benign neoplasm of peripheral nerves and autonomic nervous system of pelvis; G90.511 Complex regional pain syndrome I of right upper limb; Z88.1 Allergy status to other antibiotic agents; Z88.4 Allergy status to anesthetic agent; Z98.84 Bariatric surgery status; Z79.899 Other long term (current) drug therapy
CPT/HCPCS: 36415; 49560; 64774; 80048; 88304; J0690; J1100; J1885; J2405; J2704; J2710; J3010; J3490; J7042; J7050

== ENCOUNTER 2019-04-11 06:28 | Inpatient (IN) | payer BC ==
[2019-04-11] MEDS ORDERED: Ondansetron 4 MG/2 ML SDV IVPUSH ONE (07:20)
[2019-04-11] MEDS ORDERED: HYDROmorphone 0.5 MG/0.5 ML Syringe IVPUSH ONE ×2 (07:20→10:33)
--- NOTE | 2019-04-11 07:23 | EDM.PDOC ---
ED HPI GENERAL MEDICAL PROBLEM - General Chief Complaint: Abdominal Pain Stated Complaint: SEVERE STOMACH PAIN Time Seen by Provider: 04/11/19 07:05 Source of Information: Reports: Patient, Family History Limitations: Reports: No Limitations - History of Present Illness INITIAL COMMENTS - FREE TEXT/NARRATIVE: 44-year-old female with increasing abdominal pain and abdominal distention and bloating along with nausea and vomiting for the past 48 hours. No fevers or chills. Decreased bowel movements. She is a chronic alcoholic and is still drinking daily. Onset: Gradual Duration: Day(s): (2-3 days) Left Lower Abdomen Pain Score (Numeric/FACES): 9 - Related Data Allergies Allergy/AdvReac Type Severity Reaction Status Date / Time doxycycline Allergy Rash Verified 04/11/19 06:43 erythromycin base Allergy Rash Verified 04/11/19 06:43 procaine [From Novocain] Allergy Rash Verified 04/11/19 06:43 Home Meds: Home Meds Multivitamin [Multi-Vitamin Daily] 1 tab PO DAILY 12/02/15 [History] Iron,Carbonyl/Ascorbic Acid [Vitron-C Tablet] 1 each PO DAILY 08/04/16 [History] Gabapentin [Neurontin] 600 mg PO TID 07/13/18 [History] Albuterol Sulfate [Proair Respiclick] 1 - 2 puff IH Q4HR PRN 08/10/18 [History] Cholecalciferol (Vitamin D3) [Vitamin D3] 50,000 unit PO MOWEFR 08/10/18 [ History] Cyanocobalamin (Vitamin B-12) [Vitamin B-12] 1,000 mcg SL DAILY 08/10/18 [ History] Levothyroxine [Synthroid] 50 mcg PO ACBREAKFAST 08/10/18 [History] Ergocalciferol (Vitamin D2) [Vitamin D2] 400 units PO DAILY 11/23/18 [History] Ferrous Sulfate 325 mg PO BID 11/23/18 [History] Lidocaine/Prilocaine [EMLA Crm] 1 applic TOP DAILY PRN 11/23/18 [History] Magnesium 400 mg PO BID 11/23/18 [History] Potassium Chloride 20 meq PO BID 11/23/18 [History] Past Medical History HEENT History: Reports: None Respiratory History: Reports: Asthma Gastrointestinal History: Reports: GERD, Other (See Below) Other Gastrointestinal History: RNY 2003 Genitourinary History: Reports: None Other Genitourinary History: 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 fistula 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, Musculoskeletal History: Reports: Fracture Psychiatric History: Reports: Addiction Endocrine/Metabolic History: Reports: Hypothyroidism, Vitamin D Deficiency Hematologic History: Reports: Anemia, B12 Deficiency, Blood Transfusion(s), Iron Deficiency, Other (See Below) Other Hematologic History: vitamin D def - Infectious Disease History Infectious Disease History: Reports: Chicken Pox, Measles - Past Surgical History HEENT Surgical History: Reports: Oral Surgery Respiratory Surgical History: Reports: None GI Surgical History: Reports: Bariatric Procedure, Cholecystectomy, Colonoscopy , EGD Female Surgical History: Reports: Section, Hysterectomy, Tubal Ligation Endocrine Surgical History: Reports: None Musculoskeletal Surgical History: Reports: None, Other (See Below) Other Musculoskeletal Surgeries/Procedures:: Ankle plate/pin - hdwe removed Social & Family History - Family History Family Medical History: Noncontributory Cardiac: Reports: [place] - Tobacco Use Smoking Status *Q: Current Every Day Smoker Years of Tobacco use: 5 Packs/Tins Daily: 0.5 - Caffeine Use Caffeine Use: Reports: Soda Caffeine Use Comment: occasional soda - Alcohol Use Days Per Week of Alcohol Use: 7 Number of Drinks Per Day: 3 Total Drinks Per Week: 21 - Recreational Drug Use Recreational Drug Use: No ED ROS GENERAL - Review of Systems Review Of Systems: See Below Constitutional: Reports: Malaise, Decreased Appetite. Denies: Fever, Chills HEENT: Denies: Vision Change Respiratory: Reports: Other (Heart to take a deep breath but not short of breath ) Cardiovascular: Denies: Chest Pain Endocrine: Reports: Fatigue GI/Abdominal: Reports: Abdominal Pain, Nausea, Vomiting (1 emesis this morning, nausea for the last day). Denies: Diarrhea : Denies: Dysuria Skin: Reports: Other (Zachery complexion, likely jaundice) Neurological: Reports: Dizziness, Weakness ED EXAM, GI/ABD - Physical Exam Exam: See Below Exam Limited By: No Limitations General Appearance: Alert, No Apparent Distress (Looks uncomfortable but in no distress) Head: Atraumatic Respiratory/Chest: Lungs Clear Cardiovascular: Regular Rate, Rhythm, Tachycardia GI/Abdominal Exam: Distended, Tender (Diffusely tender, equivocal rebound tenderness) Extremities: No: Pedal Edema Neurological: Alert, Oriented Psychiatric: Flat Affect Skin Exam: Warm, Dry, Other (Generally zachery appearing complexion, telangiectasias of the cheeks and bruises of the forearms with various degrees of healing) Course - Vital Signs Last Recorded V/S: Last Vital Signs Temp 97.2 F 04/11/19 06:45 Pulse 125 H 04/11/19 06:45 Resp 18 04/11/19 06:45 BP 199/107 H 04/11/19 06:45 Pulse Ox 97 04/11/19 06:45 - Orders/Labs/Meds Orders: Medication Orders Albuterol (Proventil Neb Soln) 2.5 mg NEB Q4H PRN PRN Reason: Shortness Of Breath/wheezing Ferrous Sulfate (Ferrous Sulfate) 325 mg PO BID [facility] Folic Acid (Folic Acid) 1 mg PO DAILY [facility] Last Admin: 04/11/19 11:11 Dose: 1 mg Gabapentin (Neurontin) 600 mg PO TID [facility] Multivitamins/Minerals 10 ml/Thiamine HCl 100 mg/ Folic Acid 1 mg/ Magnesium Sulfate 2 gm/ Sodium Chloride 1,015.2 mls @ 100 mls/hr IV ONETIME ONE Stop: 04/11/19 20:39 Last Admin: 04/11/19 11:14 Dose: 100 mls/hr Sodium Chloride (Normal Saline) 1,000 mls @ 125 mls/hr IV ASDIRECTED [facility] Last Admin: 04/11/19 10:07 Dose: 125 mls/hr Levothyroxine Sodium (Synthroid) 50 mcg PO ACBREAKFAST [facility] Magnesium Oxide (Magnesium Oxide) 400 mg PO BID [facility] Ondansetron HCl (Zofran) 4 mg IV Q4H PRN PRN Reason: Nausea/Vomiting Polyethylene Glycol (Miralax) 17 gm PO DAILY PRN PRN Reason: Constipation Potassium Chloride (Klor-Con M20) 20 meq PO BIDMEALS [facility] Sodium Chloride (Saline Flush) 10 ml FLUSH ASDIRECTED PRN PRN Reason: Keep Vein Open Thiamine HCl (Vitamin B-1) 100 mg PO DAILY [facility] Last Admin: 04/11/19 11:11 Dose: 100 mg Labs: Laboratory Tests 04/11/19 04/11/19 04/11/19 Range/Units 07:43 07:43 07:43 WBC 6.6 (4.5-11.0) K/uL RBC 3.04 L (3.30-5.50) M/uL Hgb 11.2 L (12.0-15.0) g/dL Hct 33.9 L (36.0-48.0) % MCV 112 H (80-98) fL MCH 37 H (27-31) pg MCHC 33 (32-36) % Plt Count 89 L (150-400) K/uL Neut % (Auto) 76 H (36-66) % Lymph % (Auto) 16 L (24-44) % [place] % (Auto) 7 H (2-6) % Eos % (Auto) 1 L (2-4) % Baso % (Auto) 0 (0-1) % Sodium 137 L (140-148) mmol/L Potassium 4.0 (3.6-5.2) mmol/L Chloride 103 (100-108) mmol/L Carbon Dioxide 23 (21-32) mmol/L Anion Gap 15.0 H (5.0-14.0) mmol/L BUN 1 L (7-18) mg/dL Creatinine 0.7 (0.6-1.0) mg/dL Est Cr Clr Drug Dosing 90.36 mL/min Estimated GFR (MDRD) > 60 (>60) Glucose 90 (74-106) mg/dL Lactic Acid 3.8 H (0.4-2.0) mmol/L Calcium 8.2 L (8.5-10.1) mg/dL Total Bilirubin 3.9 H D (0.2-1.0) mg/dL AST 144 H D (15-37) U/L ALT 39 (12-78) U/L Alkaline Phosphatase 279 H D (46-116) U/L Total Protein 7.6 (6.4-8.2) g/dL Albumin 1.6 L (3.4-5.0) g/dL Globulin 6.0 H (2.3-3.5) g/dL Albumin/Globulin Ratio 0.3 L (1.2-2.2) Amylase 7 L (25-115) U/L Lipase 30 L (73-393) U/L Ethyl Alcohol mg/dL 04/11/19 Range/Units 07:43 WBC (4.5-11.0) K/uL RBC (3.30-5.50) M/uL Hgb (12.0-15.0) g/dL Hct (36.0-48.0) % MCV (80-98) fL MCH (27-31) pg MCHC (32-36) % Plt Count (150-400) K/uL Neut % (Auto) (36-66) % Lymph % (Auto) (24-44) % [place] % (Auto) (2-6) % Eos % (Auto) (2-4) % Baso % (Auto) (0-1) % Sodium (140-148) mmol/L Potassium (3.6-5.2) mmol/L Chloride (100-108) mmol/L Carbon Dioxide (21-32) mmol/L Anion Gap (5.0-14.0) mmol/L BUN (7-18) mg/dL Creatinine (0.6-1.0) mg/dL Est Cr Clr Drug Dosing mL/min Estimated GFR (MDRD) (>60) Glucose (74-106) mg/dL Lactic Acid (0.4-2.0) mmol/L Calcium (8.5-10.1) mg/dL Total Bilirubin (0.2-1.0) mg/dL AST (15-37) U/L ALT (12-78) U/L Alkaline Phosphatase (46-116) U/L Total Protein (6.4-8.2) g/dL Albumin (3.4-5.0) g/dL Globulin (2.3-3.5) g/dL Albumin/Globulin Ratio (1.2-2.2) Amylase (25-115) U/L Lipase (73-393) U/L Ethyl Alcohol 33 mg/dL Meds: Medications Generic Name Dose Route Start Last Admin Trade Name Freq PRN Reason Stop Dose Admin Albuterol 2.5 mg 04/11/19 10:00 Proventil Neb Soln NEB Q4H PRN Shortness Of Breath/wheezing Ferrous Sulfate 325 mg 04/11/19 21:00 Ferrous Sulfate PO BID [facility] Folic Acid 1 mg 04/11/19 10:00 04/11/19 11:11 Folic Acid PO 1 mg DAILY [facility] Administration Gabapentin 600 mg 04/11/19 14:00 Neurontin PO TID [facility] Multivitamins/Minerals 10 ml/ 1,015.2 mls @ 100 mls/hr 04/11/19 10:30 11:14 Thiamine HCl 100 mg/ Folic IV 04/11/19 20:39 100 mls/hr Acid 1 mg/ Magnesium Sulfate 2 ONETIME ONE Administration gm/ Sodium Chloride Sodium Chloride 1,000 mls @ 125 mls/hr 04/11/19 10:00 04/11/19 10:07 Normal Saline IV 125 mls/hr ASDIRECTED [facility] Administration Levothyroxine Sodium 50 mcg 04/12/19 07:30 Synthroid PO ACBREAKFAST [facility] Magnesium Oxide 400 mg 04/11/19 21:00 Magnesium Oxide PO BID [facility] Ondansetron HCl 4 mg 04/11/19 10:00 Zofran IV Q4H PRN Nausea/Vomiting Polyethylene Glycol 17 gm 04/11/19 10:00 Miralax PO DAILY PRN Constipation Potassium Chloride 20 meq 04/11/19 17:00 Klor-Con M20 PO BIDMEALS [facility] Sodium Chloride 10 ml 04/11/19 10:00 Saline Flush FLUSH ASDIRECTED PRN Keep Vein Open Thiamine HCl 100 mg 04/11/19 10:00 04/11/19 11:11 Vitamin B-1 PO 100 mg DAILY [facility] Administration Discontinued Medications Generic Name Dose Route Start Last Admin Trade Name Freq PRN Reason Stop Dose Admin Hydromorphone HCl 0.5 mg 04/11/19 07:20 04/11/19 07:32 Dilaudid IVPUSH 04/11/19 07:21 0.5 mg ONETIME ONE Administration Hydromorphone HCl 0.5 mg 04/11/19 10:33 04/11/19 11:23 Dilaudid IVPUSH 04/11/19 10:34 0.5 mg ONETIME ONE Administration Sodium Chloride 1,000 mls @ 500 mls/hr 04/11/19 07:30 04/11/19 07:34 Normal Saline IV 500 mls/hr ASDIRECTED [facility] Administration Ondansetron HCl 4 mg 04/11/19 07:20 04/11/19 07:33 Zofran IVPUSH 04/11/19 07:21 4 mg ONETIME ONE Administration - Re-Assessments/Exams Free Text/Narrative Re-Assessment/Exam: 04/11/19 07:55 A bedside ultrasound revealed significant ascites. An IV was placed and patient was given 0.5 mg of IV Dilaudid and 4 mg of Zofran. CBC CMP EtOH lactic acid were obtained. 04/11/19 08:34 EtOH is 0.033, lactic acid is mildly elevated and bilirubin is 3.9. LFTs are elevated especially alkaline phosphatase. Hemoglobin 11.2, white count is normal. This likely was alcoholic cirrhosis with ascites. I will discuss her case with the hospitalist service to see if they are comfortable taking care of this patient here or transfer is needed. Departure - Departure Time of Disposition: 10:04 Disposition: Admitted As Inpatient 64 Clinical Impression: Alcohol abuse, Alcoholic cirrhosis of liver with ascites Abdominal pain Qualifiers: Abdominal location: generalized Qualified Code(s): R10.84 - Generalized abdominal pain - Discharge Information Sepsis Event Note - Evaluation Sepsis Screening Result: No Definite Risk - Focused Exam Vital Signs: Vital Signs Temp Pulse Resp BP Pulse Ox 04/11/19 06:45 97.2 F 125 H 18 199/107 H 97 Date Exam was Performed: 04/11/19 Time Exam was Performed: 11:25
[2019-04-11] MEDS ORDERED: Sodium Chloride 0.9% 1,000 ML IV SCH (07:30)
--- NOTE | 2019-04-11 09:20 | PCM.HP.2 ---
H&P History of Present Illness - General Date of Service: 04/11/19 Admit Problem/Dx: Admission Diagnosis/Problem Admission Diagnosis/Problem Ascites Source of Information: Patient, Family, Old Records, Provider, RN Notes Reviewed History Limitations: Reports: No Limitations - History of Present Illness Initial Comments - Free Text/Narative: Ms. Grove is a 44-year-old woman who was admitted through the emergency department with abdominal pain and distention secondary to ascites with acute alcoholic hepatitis and underlying cirrhosis. She has had a longstanding history of daily alcohol use and continued to consume alcohol up until the evening prior to admission. Over the past week she has developed progressive abdominal distention and pain. She was hospitalized here approximately 9 months ago for total abdominal hysterectomy and BSO because of vaginal bleeding. Hospital course was complicated by alcohol withdrawal, acute kidney injury, and respiratory failure. The skin obtained in the emergency department today shows large volume of ascites. Hepatomegaly as well as splenomegaly with diffuse fatty infiltration of the liver. She has had previous Iman-en-Y gastric bypass surgery. She denies recent fever, chills, or sweats and has had no shortness of breath or chest pain. Left Lower Abdomen Pain Score (Numeric/FACES): 9 - Related Data Allergies/Adverse Reactions: Allergies Allergy/AdvReac Type Severity Reaction Status Date / Time doxycycline Allergy Rash Verified 04/11/19 06:43 erythromycin base Allergy Rash Verified 04/11/19 06:43 procaine [From Novocain] Allergy Rash Verified 04/11/19 06:43 Home Medications: Home Meds Multivitamin [Multi-Vitamin Daily] 1 tab PO DAILY 12/02/15 [History] Iron,Carbonyl/Ascorbic Acid [Vitron-C Tablet] 1 each PO DAILY 08/04/16 [History] Gabapentin [Neurontin] 600 mg PO TID 07/13/18 [History] Albuterol Sulfate [Proair Respiclick] 1 - 2 puff IH Q4HR PRN 08/10/18 [History] Cholecalciferol (Vitamin D3) [Vitamin D3] 50,000 unit PO MOWEFR 08/10/18 [ History] Cyanocobalamin (Vitamin B-12) [Vitamin B-12] 1,000 mcg SL DAILY 08/10/18 [ History] Levothyroxine [Synthroid] 50 mcg PO ACBREAKFAST 08/10/18 [History] Ergocalciferol (Vitamin D2) [Vitamin D2] 400 units PO DAILY 11/23/18 [History] Ferrous Sulfate 325 mg PO BID 11/23/18 [History] Lidocaine/Prilocaine [EMLA Crm] 1 applic TOP DAILY PRN 11/23/18 [History] Magnesium 400 mg PO BID 11/23/18 [History] Potassium Chloride 20 meq PO BID 11/23/18 [History] Past Medical History HEENT History: Reports: None Respiratory History: Reports: Asthma Gastrointestinal History: Reports: GERD, Other (See Below) Other Gastrointestinal History: RNY 2002 Genitourinary History: Reports: None Other Genitourinary History: 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 fistula 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, Musculoskeletal History: Reports: Fracture Psychiatric History: Reports: Addiction Endocrine/Metabolic History: Reports: Hypothyroidism, Vitamin D Deficiency Hematologic History: Reports: Anemia, B12 Deficiency, Blood Transfusion(s), Iron Deficiency, Other (See Below) Other Hematologic History: vitamin D def - Infectious Disease History Infectious Disease History: Reports: Chicken Pox, Measles - Past Surgical History HEENT Surgical History: Reports: Oral Surgery Respiratory Surgical History: Reports: None GI Surgical History: Reports: Bariatric Procedure, Cholecystectomy, Colonoscopy , EGD Female Surgical History: Reports: Section, Hysterectomy, Tubal Ligation Endocrine Surgical History: Reports: None Musculoskeletal Surgical History: Reports: None, Other (See Below) Other Musculoskeletal Surgeries/Procedures:: Ankle plate/pin - hdwe removed Social & Family History - Family History Family Medical History: Noncontributory Cardiac: Reports: [place] - Tobacco Use Smoking Status *Q: Current Every Day Smoker Years of Tobacco use: 5 Packs/Tins Daily: 0.5 - Caffeine Use Caffeine Use: Reports: Soda Caffeine Use Comment: occasional soda - Alcohol Use Days Per Week of Alcohol Use: 7 Number of Drinks Per Day: 3 Total Drinks Per Week: 21 - Recreational Drug Use Recreational Drug Use: No H&P Review of Systems - Review of Systems: Review Of Systems: See Below General: Reports: Malaise, Weakness, Fatigue, Decreased Appetite. Denies: Fever , Chills HEENT: Reports: No Symptoms Pulmonary: Reports: No Symptoms Cardiovascular: Reports: No Symptoms Gastrointestinal: Reports: Abdominal Pain, Distension, Nausea, Vomiting. Denies : Constipation, Diarrhea, Difficulty Swallowing, Hematemesis, Hematochezia, Melena Genitourinary: Reports: No Symptoms Musculoskeletal: Reports: No Symptoms Skin: Reports: No Symptoms Psychiatric: Reports: No Symptoms Neurological: Reports: No Symptoms Hematologic/Lymphatic: Reports: No Symptoms Immunologic: Reports: No Symptoms Exam - Exam Exam: See Below - Vital Signs Vital Signs: Last Vital Signs Temp 97.2 F 04/11/19 06:45 Pulse 125 H 04/11/19 06:45 Resp 18 04/11/19 06:45 BP 199/107 H 04/11/19 06:45 Pulse Ox 97 04/11/19 06:45 Weight: 191 lb 9.307 oz - Exam General: Alert, Oriented, Cooperative, Moderate Distress HEENT: Hearing Intact, Mucosa Moist & [place], Normal Nasal Septum, Posterior Pharynx Clear, Pupils Equal, Scleral Icterus Neck: Supple, Trachea Midline, +2 Carotid Pulse wo Bruit Lungs: Clear to Auscultation, Normal Respiratory Effort Cardiovascular: Regular Rate, Regular Rhythm, Normal S1, Normal S2. No: Systolic Murmur, Diastolic Murmur GI/Abdominal Exam: Soft, No Organomegaly, Distended, Tender. No: Guarding, Rigid, Rebound Back Exam: Normal Inspection, Full Range of Motion Extremities: Non-Tender, Pedal Edema Skin: Warm, Dry, Intact Neurological: Cranial Nerves Intact, Strength Equal Bilateral, Normal Speech, Normal Tone, Sensation Intact. No: Focal Deficit Neuro Extensive - Mental Status: Alert, Oriented x3, Normal Mood/Affect, Normal Cognition, Memory Intact - Patient Data Lab Results Last 24 hrs: Laboratory Results - last 24 hr 04/11/19 04/11/19 04/11/19 Range/Units 07:43 07:43 07:43 WBC 6.6 (4.5-11.0) K/uL RBC 3.04 L (3.30-5.50) M/uL Hgb 11.2 L (12.0-15.0) g/dL Hct 33.9 L (36.0-48.0) % MCV 112 H (80-98) fL MCH 37 H (27-31) pg MCHC 33 (32-36) % Plt Count 89 L (150-400) K/uL Neut % (Auto) 76 H (36-66) % Lymph % (Auto) 16 L (24-44) % [place] % (Auto) 7 H (2-6) % Eos % (Auto) 1 L (2-4) % Baso % (Auto) 0 (0-1) % Sodium 137 L (140-148) mmol/L Potassium 4.0 (3.6-5.2) mmol/L Chloride 103 (100-108) mmol/L Carbon Dioxide 23 (21-32) mmol/L Anion Gap 15.0 H (5.0-14.0) mmol/L BUN 1 L (7-18) mg/dL Creatinine 0.7 (0.6-1.0) mg/dL Est Cr Clr Drug Dosing 90.36 mL/min Estimated GFR (MDRD) > 60 (>60) Glucose 90 (74-106) mg/dL Lactic Acid 3.8 H (0.4-2.0) mmol/L Calcium 8.2 L (8.5-10.1) mg/dL Total Bilirubin 3.9 H D (0.2-1.0) mg/dL AST 144 H D (15-37) U/L ALT 39 (12-78) U/L Alkaline Phosphatase 279 H D (46-116) U/L Total Protein 7.6 (6.4-8.2) g/dL Albumin 1.6 L (3.4-5.0) g/dL Globulin 6.0 H (2.3-3.5) g/dL Albumin/Globulin Ratio 0.3 L (1.2-2.2) Amylase 7 L (25-115) U/L Lipase 30 L (73-393) U/L Ethyl Alcohol mg/dL 04/11/19 Range/Units 07:43 WBC (4.5-11.0) K/uL RBC (3.30-5.50) M/uL Hgb (12.0-15.0) g/dL Hct (36.0-48.0) % MCV (80-98) fL MCH (27-31) pg MCHC (32-36) % Plt Count (150-400) K/uL Neut % (Auto) (36-66) % Lymph % (Auto) (24-44) % [place] % (Auto) (2-6) % Eos % (Auto) (2-4) % Baso % (Auto) (0-1) % Sodium (140-148) mmol/L Potassium (3.6-5.2) mmol/L Chloride (100-108) mmol/L Carbon Dioxide (21-32) mmol/L Anion Gap (5.0-14.0) mmol/L BUN (7-18) mg/dL Creatinine (0.6-1.0) mg/dL Est Cr Clr Drug Dosing mL/min Estimated GFR (MDRD) (>60) Glucose (74-106) mg/dL Lactic Acid (0.4-2.0) mmol/L Calcium (8.5-10.1) mg/dL Total Bilirubin (0.2-1.0) mg/dL AST (15-37) U/L ALT (12-78) U/L Alkaline Phosphatase (46-116) U/L Total Protein (6.4-8.2) g/dL Albumin (3.4-5.0) g/dL Globulin (2.3-3.5) g/dL Albumin/Globulin Ratio (1.2-2.2) Amylase (25-115) U/L Lipase (73-393) U/L Ethyl Alcohol 33 mg/dL Result Diagrams: 04/11/19 07:43 04/11/19 07:43 Sepsis Event Note - Evaluation Sepsis Screening Result: No Definite Risk - Focused Exam Vital Signs: Vital Signs Temp Pulse Resp BP Pulse Ox 04/11/19 06:45 97.2 F 125 H 18 199/107 H 97 Date Exam was Performed: 04/11/19 Time Exam was Performed: 18:10 *Q Meaningful Use (ADM) - VTE Risk Assess *Q Each Risk Factor Represents 1 Point: Age 41 - 59 years, Obesity ( BMI > 25 kg/m2 ) Total Score 1 Point Risk Factors: 2 Each Risk Factor Represents 2 Points: None Total Score 2 Point Risk Factors: 0 Each Risk Factor Represents 3 Points: None Total Score 3 Point Risk Factors: 0 Each Risk Factor Represents 5 Points: None Total Score 5 Point Risk Factors: 0 Venous Thromboembolism Risk Factor Score *Q: 2 Problem List Initiated/Reviewed/Updated: Yes Orders Last 24hrs: Active Orders 24 hr Category Date Time Status Patient Status Manage Transfer [TRANSFER] Routine ADT 04/11/19 09:11 Ordered Abdomen Pelvis wo Cont [CT] Stat Exams 04/11/19 08:53 Taken Sodium Chloride 0.9% [Normal Saline] 1,000 ml Med 04/11/19 07:30 Active IV ASDIRECTED Resuscitation Status Routine Resus Stat 04/11/19 09:15 Ordered Medication Orders Sodium Chloride (Normal Saline) 1,000 mls @ 500 mls/hr IV ASDIRECTED [facility] Last Admin: 04/11/19 07:34 Dose: 500 mls/hr Assessment/Plan Comment:: ASSESSMENT AND PLAN ABDOMINAL PAIN AND DISTENTION-secondary to large volume of ascitic fluid. -Diagnostic and therapeutic paracentesis ACUTE ALCOHOLIC HEPATITIS AND UNDERLYING CIRRHOSIS-secondary to longstanding daily alcohol abuse -Alcohol cessation -Initiate diuretic therapy for management of ascites ALCOHOL WITHDRAWAL-anticipate significant alcohol withdrawal delirium -Continue outpatient gabapentin -Alcohol withdrawal protocol MAINTENANCE ISSUES -DVT prophylaxis; SCUDs -GI prophylaxis; not indicated -Buchanan catheter; not indicated -Nutrition; 2 g sodium diet -Nicotine dependence; not required CODE STATUS-FULL CODE ADMISSION STATUS-patient will be admitted to inpatient status, expect at least a 2 night hospital stay for evaluation and management of problems as outlined above. At the time of this admission I do not reasonably expected evaluation and management of this problem will require more than a 96 hour hospital stay. DISPOSITION-anticipate discharge to home after the hospital stay. PRIMARY CARE PROVIDER-Dr. James - Mortality Measure Prognosis:: Good
--- NOTE | 2019-04-11 09:39 | CT ---
Abdomen Pelvis wo Cont CLINICAL HISTORY: Abdominal pain COMPARISON: 08/11/2018. TECHNIQUE: Axial tomographic images are obtained from the dome of the diaphragm to the pubic symphysis without IV contrast enhancement. No oral contrast was used. Auto dosage reduction and iterative reconstruction techniques employed. FINDINGS: The lung bases show some streaky atelectasis. The liver shows diffuse fatty infiltration. It is moderately enlarged and heterogeneous there is some increased density in the dome which is heterogeneous. This could represent some fatty sparing. Underlying liver lesion would be difficult to exclude.. The gallbladder is absent. Patient is status post gastric bypass and Iman-en-Y.. The spleen is enlarged. There is moderate diffuse abdominal pelvic ascites. There is some thickening of the transverse colon the small intestinal configuration shows no suggestion of obstruction. The pancreas is free of mass or inflammatory change. The adrenal glands appear normal bilaterally. The kidneys show no stones or hydronephrosis. The aorta has a normal contour. There is no suspicious retroperitoneal adenopathy. There is diffuse subcutaneous edema which is likely related to anasarca. In the lower portion of the left side of a large pannus is an ovoid fluid collection contiguous with the anterior abdominal wall. This measures 2.5 x 8.5 x 3.9 cm. This could be a left lower quadrant ventral hernia or seroma. IMPRESSION: Moderate hepatosplenomegaly with moderate to severe diffuse fatty infiltration of the liver. There is some heterogeneity in the dome of the right lobe which may represent some focal fatty sparing. Underlying mass would be difficult to exclude. Significant abdominal ascites and subcutaneous edema consistent with anasarca Thickening of the transverse colon may be related to anasarca. Colitis is felt less likely but not excluded Subcutaneous fluid collection contiguous to the left lower quadrant the abdominal wall within a large pannus. This is new since prior study. This could represent ventral hernia containing ascitic fluid. Seroma is not excluded. Previous Iman-en-Y gastric bypass and previous cholecystectomy
[2019-04-11] MEDS ORDERED: Sodium Chloride 0.9% 10 ML Syringe FLUSH PRN (10:00)
[2019-04-11] MEDS ORDERED: Ondansetron 4 MG/2 ML SDV IV PRN (10:00)
[2019-04-11] MEDS ORDERED: Polyethylene Glycol 3350 Powder 17 GM Packet PO PRN (10:00)
[2019-04-11] MEDS ORDERED: Albuterol 0.083% 2.5 MG/3 ML Neb Soln NEB PRN (10:00)
[2019-04-11] MEDS: Sodium Chloride 0.9% 1,000 ML IV SCH ×2 (10:07→21:13)
[2019-04-11] MEDS ORDERED: MVI, Adult with Vitamin K 10 ML, Thiamine 100 MG, Folic Acid 1 MG, Magnesium Sulfate 2 ... IV ONE ×5 (10:30)
[2019-04-11] MEDS: Folic Acid 1 MG Tab PO SCH (11:11)
[2019-04-11] MEDS: Thiamine 100 MG Tab PO SCH (11:11)
[2019-04-11] MEDS: Gabapentin 300 MG Cap PO SCH ×2 (15:00→20:46)
[2019-04-11] MEDS: Potassium Chloride 20 MEQ Tab.ER PO SCH (17:11)
[2019-04-11] MEDS: Ferrous Sulfate 325 MG Tab PO SCH (20:46)
[2019-04-11] MEDS: Magnesium Oxide 400 MG Tab PO SCH (20:46)
[2019-04-12] MEDS: Sodium Chloride 0.9% 1,000 ML IV SCH (05:12)
[2019-04-12] MEDS: Levothyroxine 50 MCG Tab PO SCH (07:53)
[2019-04-12] MEDS: Gabapentin 300 MG Cap PO SCH ×4 (07:53→20:12)
[2019-04-12] MEDS: Magnesium Oxide 400 MG Tab PO SCH ×3 (07:54→20:12)
[2019-04-12] MEDS: Potassium Chloride 20 MEQ Tab.ER PO SCH ×2 (07:54→17:35)
[2019-04-12] MEDS: Thiamine 100 MG Tab PO SCH ×2 (07:54→09:32)
[2019-04-12] MEDS: Ferrous Sulfate 325 MG Tab PO SCH ×3 (07:54→20:12)
[2019-04-12] MEDS: Folic Acid 1 MG Tab PO SCH ×2 (07:54→09:32)
--- NOTE | 2019-04-12 09:22 | PCM.PN ---
- General Info Date of Service: 04/12/19 Subjective Update: Ms. Grove has been stable since admission yesterday. Abdominal pain improved following paracentesis performed by Dr. Gonsalez. Vital signs have remained stable and she has been afebrile. No evidence of alcohol withdrawal thus far. Functional Status: Reports: Tolerating Diet, Ambulating, Urinating - Review of Systems General: Reports: Weakness, Malaise. Denies: Fever, Chills Pulmonary: Reports: No Symptoms Cardiovascular: Reports: No Symptoms Gastrointestinal: Reports: Abdominal Pain. Denies: Diarrhea, Hematochezia, Melena, Nausea, Vomiting - Patient Data Vitals - Most Recent: Last Vital Signs Temp 98.6 F 04/11/19 20:00 Pulse 83 04/12/19 05:18 Resp 13 04/12/19 01:59 BP 108/63 04/12/19 05:18 Pulse Ox 96 04/12/19 00:00 Weight - Most Recent: 191 lb 9.307 oz I&O - Last 24 Hours: Intake & Output 04/11/19 04/12/19 04/12/19 22:59 06:59 14:59 Intake Total 3125 1500 Output Total 600 1900 Balance 2525 -400 Lab Results Last 24 Hours: Laboratory Results - last 24 hr 04/11/19 04/11/19 04/11/19 Range/Units 15:17 15:17 15:17 WBC (4.5-11.0) K/uL RBC (3.30-5.50) M/uL Hgb (12.0-15.0) g/dL Hct (36.0-48.0) % MCV (80-98) fL MCH (27-31) pg MCHC (32-36) % Plt Count (150-400) K/uL Neut % (Auto) (36-66) % Lymph % (Auto) (24-44) % Wilson % (Auto) (2-6) % Eos % (Auto) (2-4) % Baso % (Auto) (0-1) % PT (9.5-12.0) sec INR (0.80-1.20) Sodium (140-148) mmol/L Potassium (3.6-5.2) mmol/L Chloride (100-108) mmol/L Carbon Dioxide (21-32) mmol/L Anion Gap (5.0-14.0) mmol/L BUN (7-18) mg/dL Creatinine (0.6-1.0) mg/dL Est Cr Clr Drug Dosing mL/min Estimated GFR (MDRD) (>60) Glucose (74-106) mg/dL Lactic Acid (0.4-2.0) mmol/L Calcium (8.5-10.1) mg/dL Magnesium (1.8-2.4) mg/dL Total Bilirubin (0.2-1.0) mg/dL AST (15-37) U/L ALT (12-78) U/L Alkaline Phosphatase (46-116) U/L Lactate Dehydrogenase 52 L (82-234) U/L Total Protein < 2.0 L (6.4-8.2) g/dL Albumin (3.4-5.0) g/dL Globulin (2.3-3.5) g/dL Albumin/Globulin Ratio (1.2-2.2) Fluid Type Peritoneal fluid Fluid pH Fluid WBC /ul Fluid RBC /ul Fluid Mononuclear Cell % Fl Polymorphonucl Cell % Fluid Glucose 93 mg/dL 04/11/19 04/11/19 04/12/19 Range/Units 15:17 15:17 04:35 WBC 5.4 (4.5-11.0) K/uL RBC 2.68 L (3.30-5.50) M/uL Hgb 9.8 L (12.0-15.0) g/dL Hct 30.6 L (36.0-48.0) % MCV 114 H (80-98) fL MCH 37 H (27-31) pg MCHC 32 (32-36) % Plt Count 80 L (150-400) K/uL Neut % (Auto) 55 (36-66) % Lymph % (Auto) 35 (24-44) % Wilson % (Auto) 8 H (2-6) % Eos % (Auto) 1 L (2-4) % Baso % (Auto) 0 (0-1) % PT (9.5-12.0) sec INR (0.80-1.20) Sodium (140-148) mmol/L Potassium (3.6-5.2) mmol/L Chloride (100-108) mmol/L Carbon Dioxide (21-32) mmol/L Anion Gap (5.0-14.0) mmol/L BUN (7-18) mg/dL Creatinine (0.6-1.0) mg/dL Est Cr Clr Drug Dosing mL/min Estimated GFR (MDRD) (>60) Glucose (74-106) mg/dL Lactic Acid (0.4-2.0) mmol/L Calcium (8.5-10.1) mg/dL Magnesium (1.8-2.4) mg/dL Total Bilirubin (0.2-1.0) mg/dL AST (15-37) U/L ALT (12-78) U/L Alkaline Phosphatase (46-116) U/L Lactate Dehydrogenase (82-234) U/L Total Protein (6.4-8.2) g/dL Albumin (3.4-5.0) g/dL Globulin (2.3-3.5) g/dL Albumin/Globulin Ratio (1.2-2.2) Fluid Type Peritoneal fluid Peritoneal fluid Fluid pH 8 Fluid WBC 113 /ul Fluid RBC 298 /ul Fluid Mononuclear Cell 70 % Fl Polymorphonucl Cell 30 % Fluid Glucose mg/dL 04/12/19 04/12/19 04/12/19 Range/Units 04:35 04:35 04:35 WBC (4.5-11.0) K/uL RBC (3.30-5.50) M/uL Hgb (12.0-15.0) g/dL Hct (36.0-48.0) % MCV (80-98) fL MCH (27-31) pg MCHC (32-36) % Plt Count (150-400) K/uL Neut % (Auto) (36-66) % Lymph % (Auto) (24-44) % Wilson % (Auto) (2-6) % Eos % (Auto) (2-4) % Baso % (Auto) (0-1) % PT 18.0 H (9.5-12.0) sec INR 1.72 H (0.80-1.20) Sodium 138 L (140-148) mmol/L Potassium 3.9 (3.6-5.2) mmol/L Chloride 106 (100-108) mmol/L Carbon Dioxide 25 (21-32) mmol/L Anion Gap 10.9 (5.0-14.0) mmol/L BUN 2 L D (7-18) mg/dL Creatinine 0.6 (0.6-1.0) mg/dL Est Cr Clr Drug Dosing 105.42 mL/min Estimated GFR (MDRD) > 60 (>60) Glucose 68 L (74-106) mg/dL Lactic Acid 1.0 (0.4-2.0) mmol/L Calcium 7.6 L (8.5-10.1) mg/dL Magnesium 2.0 (1.8-2.4) mg/dL Total Bilirubin 4.6 H (0.2-1.0) mg/dL AST 116 H (15-37) U/L ALT 32 (12-78) U/L Alkaline Phosphatase 236 H (46-116) U/L Lactate Dehydrogenase (82-234) U/L Total Protein 6.9 (6.4-8.2) g/dL Albumin 1.4 L (3.4-5.0) g/dL Globulin 5.5 H (2.3-3.5) g/dL Albumin/Globulin Ratio 0.3 L (1.2-2.2) Fluid Type Fluid pH Fluid WBC /ul Fluid RBC /ul Fluid Mononuclear Cell % Fl Polymorphonucl Cell % Fluid Glucose mg/dL Abdirashid Results Last 24 Hours: Microbiology 04/11/19 14:46 Gram Stain - Final Abdominal Fluid - Aspirate 04/11/19 14:25 NUSRAT Preparation - Final Other - Peritoneal Med Orders - Current: Current Medications Albuterol (Proventil Neb Soln) 2.5 mg NEB Q4H PRN PRN Reason: Shortness Of Breath/wheezing Ferrous Sulfate (Ferrous Sulfate) 325 mg PO BID [facility] Last Admin: 04/12/19 07:54 Dose: 325 mg Folic Acid (Folic Acid) 1 mg PO DAILY [facility] Last Admin: 04/12/19 07:54 Dose: 1 mg Gabapentin (Neurontin) 600 mg PO TID [facility] Last Admin: 04/12/19 07:53 Dose: 600 mg Levothyroxine Sodium (Synthroid) 50 mcg PO ACBREAKFAST [facility] Last Admin: 04/12/19 07:53 Dose: 50 mcg Magnesium Oxide (Magnesium Oxide) 400 mg PO BID [facility] Last Admin: 04/12/19 07:54 Dose: 400 mg Ondansetron HCl (Zofran) 4 mg IV Q4H PRN PRN Reason: Nausea/Vomiting Polyethylene Glycol (Miralax) 17 gm PO DAILY PRN PRN Reason: Constipation Potassium Chloride (Klor-Con M20) 20 meq PO BIDMEALS [facility] Last Admin: 04/12/19 07:54 Dose: 20 meq Sodium Chloride (Saline Flush) 10 ml FLUSH ASDIRECTED PRN PRN Reason: Keep Vein Open Thiamine HCl (Vitamin B-1) 100 mg PO DAILY [facility] Last Admin: 04/12/19 07:54 Dose: 100 mg Discontinued Medications Hydromorphone HCl (Dilaudid) 0.5 mg IVPUSH ONETIME ONE Stop: 04/11/19 07:21 Last Admin: 04/11/19 07:32 Dose: 0.5 mg Hydromorphone HCl (Dilaudid) 0.5 mg IVPUSH ONETIME ONE Stop: 04/11/19 10:34 Last Admin: 04/11/19 11:23 Dose: 0.5 mg Sodium Chloride (Normal Saline) 1,000 mls @ 500 mls/hr IV ASDIRECTED [facility] Last Admin: 04/11/19 07:34 Dose: 500 mls/hr Multivitamins/Minerals 10 ml/Thiamine HCl 100 mg/ Folic Acid 1 mg/ Magnesium Sulfate 2 gm/ Sodium Chloride 1,015.2 mls @ 100 mls/hr IV ONETIME ONE Stop: 04/11/19 20:39 Last Admin: 04/11/19 11:14 Dose: 100 mls/hr Sodium Chloride (Normal Saline) 1,000 mls @ 125 mls/hr IV ASDIRECTED [facility] Last Admin: 04/12/19 05:12 Dose: 125 mls/hr Ondansetron HCl (Zofran) 4 mg IVPUSH ONETIME ONE Stop: 04/11/19 07:21 Last Admin: 04/11/19 07:33 Dose: 4 mg - Exam General: Alert, Oriented, Cooperative, Mild Distress Lungs: Clear to Auscultation, Normal Respiratory Effort Cardiovascular: Regular Rate, Regular Rhythm, No Murmurs GI/Abdominal Exam: Soft, Non-Tender, No Organomegaly, No Distention Extremities: Non-Tender, No Pedal Edema Skin: Warm, Dry, Intact Sepsis Event Note - Evaluation Sepsis Screening Result: No Definite Risk - Focused Exam Vital Signs: Vital Signs Pulse Resp BP Pulse Ox 04/12/19 05:18 83 108/63 04/12/19 03:47 87 04/12/19 01:59 92 13 107/55 L 04/12/19 00:00 94 22 H 107/55 L 96 04/11/19 22:00 108 H 19 105/64 96 Date Exam was Performed: 04/12/19 Time Exam was Performed: 09:12 - Problem List Review Problem List Initiated/Reviewed/Updated: Yes - My Orders Last 24 Hours: My Active Orders 04/11/19 09:15 Resuscitation Status Routine 04/11/19 10:00 Patient Status [ADT] Routine Ambulate [RC] QID CIWAA Assessment [RC] Q4H Cardiac Monitoring [RC] .As Directed Height and Weight [RC] DAILY Intake and Output [RC] QSHIFT Notify Provider Vital Signs [RC] ASDIRECTED Notify Provider [RC] PRN Oxygen Therapy [RC] PRN Peripheral IV Care [RC] . DIRECTED Pulse Oximetry [RC] CONTINUOUS RT Aerosol Therapy [RC] ASDIRECTED Up With Assistance [RC] ASDIRECTED Up to Chair [RC] QID VTE/DVT Education [RC] Per Unit Routine Vital Signs [RC] Q2H Albuterol [Proventil Neb Soln] 2.5 mg NEB Q4H PRN Folic Acid 1 mg PO DAILY Ondansetron [Zofran] 4 mg IV Q4H PRN Sodium Chloride 0.9% [Saline Flush] 10 ml FLUSH ASDIRECTED PRN Thiamine [Vitamin B-1] 100 mg PO DAILY polyethylene glycoL 3350 [MiraLAX] 17 gm PO DAILY PRN Peripheral IV Insertion Adult [OM.PC] Routine Sequential Compression Device [OM.PC] Per Unit Routine 04/11/19 14:00 Gabapentin [Neurontin] 600 mg PO TID 04/11/19 14:25 CULTURE ANAEROBIC [RM] Routine 04/11/19 17:00 Potassium Chloride [Klor-Con M20] 20 meq PO BIDMEALS 04/11/19 21:00 Ferrous Sulfate 325 mg PO BID Magnesium Oxide 400 mg PO BID 04/11/19 Lunch 2 Gram Sodium Diet [DIET] 04/12/19 07:30 Levothyroxine [Synthroid] 50 mcg PO ACBREAKFAST 04/12/19 08:27 Convert IV to Saline Lock [OM.PC] Routine 04/13/19 05:00 CBC WITH AUTO DIFF [HEME] Timed COMPREHENSIVE METABOLIC PN,CMP [CHEM] Timed INR,PT,PROTHROMBIN TIME [COAG] Timed - Plan Plan:: ASSESSMENT AND PLAN ABDOMINAL PAIN AND DISTENTION SECONDARY TO LARGE VOLUME ASCITES-pain improved following paracentesis yesterday -Surgical follow-up per Dr. Gonsalez -Continue IV fluids -If stable plan to initiate diuretic therapy tomorrow -Continue 2 g sodium diet ACUTE ALCOHOLIC HEPATITIS AND UNDERLYING CIRRHOSIS-secondary to longstanding daily alcohol abuse. Bilirubin has increased from admission and INR elevated. Stormyey discriminant function calculated today and is elevated at 32, being the need to start steroid therapy. -Prednisolone 40 mg p.o. daily -Calculate discriminant function daily -Alcohol cessation -Initiate diuretic therapy for management of ascites ALCOHOL WITHDRAWAL-anticipate significant alcohol withdrawal delirium -Continue outpatient gabapentin -Alcohol withdrawal protocol MAINTENANCE ISSUES -DVT prophylaxis; SCUDs -GI prophylaxis; not indicated -Buchanan catheter; not indicated -Nutrition; 2 g sodium diet -Nicotine dependence; not required CODE STATUS-FULL CODE ADMISSION STATUS-patient will be admitted to inpatient status, expect at least a 2 night hospital stay for evaluation and management of problems as outlined above. At the time of this admission I do not reasonably expected evaluation and management of this problem will require more than a 96 hour hospital stay. DISPOSITION-anticipate discharge to home after the hospital stay. PRIMARY CARE PROVIDER-Dr. James
[2019-04-12] MEDS: prednisoLONE 15 MG/5 ML Soln UD Cup PO SCH (09:42)
[2019-04-12] MEDS: oxyCODONE 5 MG Tab PO PRN ×2 (15:10→20:11)
[2019-04-13] MEDS: Levothyroxine 50 MCG Tab PO SCH (07:39)
[2019-04-13] MEDS: Potassium Chloride 20 MEQ Tab.ER PO SCH ×2 (07:40→17:09)
[2019-04-13] MEDS: oxyCODONE 5 MG Tab PO PRN ×2 (07:40→19:53)
[2019-04-13] MEDS: Gabapentin 300 MG Cap PO SCH ×3 (08:56→21:19)
[2019-04-13] MEDS: prednisoLONE 15 MG/5 ML Soln UD Cup PO SCH (08:56)
[2019-04-13] MEDS: Ferrous Sulfate 325 MG Tab PO SCH ×2 (08:56→21:19)
[2019-04-13] MEDS: Thiamine 100 MG Tab PO SCH (08:56)
[2019-04-13] MEDS: Folic Acid 1 MG Tab PO SCH (08:56)
[2019-04-13] MEDS: Magnesium Oxide 400 MG Tab PO SCH ×2 (08:56→21:19)
--- NOTE | 2019-04-13 09:28 | PCM.PN ---
- General Info Date of Service: 04/13/19 Subjective Update: Ms. Grove has been stable since yesterday, no evidence thus far of significant alcohol withdrawal. Liver function stable, improvement in bilirubin from yesterday. Calculated discriminant function today is 31. Functional Status: Reports: Tolerating Diet, Ambulating, Urinating - Review of Systems General: Reports: Weakness. Denies: Fever, Chills Pulmonary: Reports: No Symptoms Cardiovascular: Reports: No Symptoms Gastrointestinal: Reports: No Symptoms - Patient Data Vitals - Most Recent: Last Vital Signs Temp 97.4 F 04/13/19 08:00 Pulse 87 04/13/19 08:00 Resp 15 04/13/19 08:00 BP 123/62 04/13/19 08:00 Pulse Ox 99 04/13/19 08:00 Weight - Most Recent: 173 lb 15.115 oz I&O - Last 24 Hours: Intake & Output 04/12/19 04/13/19 04/13/19 22:59 06:59 14:59 Intake Total 1000 120 Output Total 2100 Balance -2100 1000 120 Lab Results Last 24 Hours: Laboratory Results - last 24 hr 04/13/19 04/13/19 04/13/19 Range/Units 04:25 04:25 04:25 WBC 4.9 (4.5-11.0) K/uL RBC 2.64 L (3.30-5.50) M/uL Hgb 9.8 L (12.0-15.0) g/dL Hct 30.1 L (36.0-48.0) % MCV 114 H (80-98) fL MCH 37 H (27-31) pg MCHC 33 (32-36) % Plt Count 83 L (150-400) K/uL Neut % (Auto) 65 (36-66) % Lymph % (Auto) 28 (24-44) % Cavalier % (Auto) 7 H (2-6) % Eos % (Auto) 0 L (2-4) % Baso % (Auto) 0 (0-1) % PT 18.0 H (9.5-12.0) sec INR 1.72 H (0.80-1.20) Sodium 136 L (140-148) mmol/L Potassium 3.9 (3.6-5.2) mmol/L Chloride 107 (100-108) mmol/L Carbon Dioxide 27 (21-32) mmol/L Anion Gap 5.9 (5.0-14.0) mmol/L BUN 2 L (7-18) mg/dL Creatinine 0.7 (0.6-1.0) mg/dL Est Cr Clr Drug Dosing 90.22 mL/min Estimated GFR (MDRD) > 60 (>60) Glucose 80 (74-106) mg/dL Calcium 7.5 L (8.5-10.1) mg/dL Total Bilirubin 3.5 H (0.2-1.0) mg/dL AST 85 H (15-37) U/L ALT 28 (12-78) U/L Alkaline Phosphatase 215 H (46-116) U/L Total Protein 6.9 (6.4-8.2) g/dL Albumin 1.4 L (3.4-5.0) g/dL Globulin 5.5 H (2.3-3.5) g/dL Albumin/Globulin Ratio 0.3 L (1.2-2.2) Abdirashid Results Last 24 Hours: Microbiology 04/11/19 14:25 Anaerobic Culture - Preliminary Peritoneal Fluid NO GROWTH AFTER 1 DAY 04/11/19 14:46 Gram Stain - Final Abdominal Fluid - Aspirate Body Fluid Culture - Preliminary NO GROWTH AFTER 1 DAY Med Orders - Current: Current Medications Albuterol (Proventil Neb Soln) 2.5 mg NEB Q4H PRN PRN Reason: Shortness Of Breath/wheezing Ferrous Sulfate (Ferrous Sulfate) 325 mg PO BID [facility] Last Admin: 04/13/19 08:56 Dose: 325 mg Folic Acid (Folic Acid) 1 mg PO DAILY [facility] Last Admin: 04/13/19 08:56 Dose: 1 mg Furosemide (Lasix) 20 mg PO DAILY [facility] Gabapentin (Neurontin) 600 mg PO TID [facility] Last Admin: 04/13/19 08:56 Dose: 600 mg Levothyroxine Sodium (Synthroid) 50 mcg PO ACBREAKFAST [facility] Last Admin: 04/13/19 07:39 Dose: 50 mcg Magnesium Oxide (Magnesium Oxide) 400 mg PO BID [facility] Last Admin: 04/13/19 08:56 Dose: 400 mg Ondansetron HCl (Zofran) 4 mg IV Q4H PRN PRN Reason: Nausea/Vomiting Oxycodone HCl (Oxycodone) 5 mg PO Q4H PRN PRN Reason: Headache/Pain Last Admin: 04/13/19 07:40 Dose: 5 mg Polyethylene Glycol (Miralax) 17 gm PO DAILY PRN PRN Reason: Constipation Potassium Chloride (Klor-Con M20) 20 meq PO BIDMEALS [facility] Last Admin: 04/13/19 07:40 Dose: 20 meq Prednisolone (Orapred 15 Mg/5ml Soln) 40 mg PO DAILY [facility] Last Admin: 04/13/19 08:56 Dose: 40 mg Sodium Chloride (Saline Flush) 10 ml FLUSH ASDIRECTED PRN PRN Reason: Keep Vein Open Spironolactone (Aldactone) 25 mg PO BID [facility] Thiamine HCl (Vitamin B-1) 100 mg PO DAILY [facility] Last Admin: 04/13/19 08:56 Dose: 100 mg Discontinued Medications Hydromorphone HCl (Dilaudid) 0.5 mg IVPUSH ONETIME ONE Stop: 04/11/19 07:21 Last Admin: 04/11/19 07:32 Dose: 0.5 mg Hydromorphone HCl (Dilaudid) 0.5 mg IVPUSH ONETIME ONE Stop: 04/11/19 10:34 Last Admin: 04/11/19 11:23 Dose: 0.5 mg Sodium Chloride (Normal Saline) 1,000 mls @ 500 mls/hr IV ASDIRECTED [facility] Last Admin: 04/11/19 07:34 Dose: 500 mls/hr Multivitamins/Minerals 10 ml/Thiamine HCl 100 mg/ Folic Acid 1 mg/ Magnesium Sulfate 2 gm/ Sodium Chloride 1,015.2 mls @ 100 mls/hr IV ONETIME ONE Stop: 04/11/19 20:39 Last Admin: 04/11/19 11:14 Dose: 100 mls/hr Sodium Chloride (Normal Saline) 1,000 mls @ 125 mls/hr IV ASDIRECTED [facility] Last Admin: 04/12/19 05:12 Dose: 125 mls/hr Ondansetron HCl (Zofran) 4 mg IVPUSH ONETIME ONE Stop: 04/11/19 07:21 Last Admin: 04/11/19 07:33 Dose: 4 mg - Exam Quality Assessment: DVT Prophylaxis General: Alert, Oriented, Cooperative, Mild Distress Lungs: Clear to Auscultation, Normal Respiratory Effort Cardiovascular: Regular Rate, Regular Rhythm, No Murmurs GI/Abdominal Exam: Soft, Non-Tender, No Organomegaly, Distended. No: Guarding, Rigid, Rebound Extremities: Non-Tender, No Pedal Edema Sepsis Event Note - Evaluation Sepsis Screening Result: No Definite Risk - Focused Exam Vital Signs: Vital Signs Temp Pulse Resp BP Pulse Ox 04/13/19 08:00 97.4 F 87 15 123/62 99 04/13/19 05:35 90 17 113/71 04/13/19 04:00 87 19 113/67 04/13/19 01:09 90 13 113/67 04/13/19 00:00 84 04/12/19 21:23 87 Date Exam was Performed: 04/13/19 Time Exam was Performed: 09:15 - Problem List Review Problem List Initiated/Reviewed/Updated: Yes - My Orders Last 24 Hours: My Active Orders 04/12/19 08:27 Convert IV to Saline Lock [OM.PC] Routine 04/12/19 09:30 prednisoLONE [OraPred 15 MG/5ML Soln] 40 mg PO DAILY 04/12/19 14:49 oxyCODONE 5 mg PO Q4H PRN 04/13/19 09:15 Furosemide [Lasix] 20 mg PO DAILY Spironolactone [Aldactone] 25 mg PO BID 04/14/19 05:00 COMPREHENSIVE METABOLIC PN,CMP [CHEM] Timed INR,PT,PROTHROMBIN TIME [COAG] Timed - Plan Plan:: ASSESSMENT AND PLAN ABDOMINAL PAIN AND DISTENTION SECONDARY TO LARGE VOLUME ASCITES-pain improved following paracentesis, no significant recurrence of ascites thus far -Surgical follow-up per Dr. Gonsalez -Saline lock IV -Spironolactone 25 mg twice daily -Furosemide 20 mg daily -Continue 2 g sodium diet ACUTE ALCOHOLIC HEPATITIS AND UNDERLYING CIRRHOSIS-secondary to longstanding daily alcohol abuse. Bilirubin has increased from admission and INR elevated. Maddrey discriminant function calculated today and is elevated at 31 -Prednisolone 40 mg p.o. daily -Alcohol cessation -Initiate diuretic therapy for management of ascites, as above ALCOHOL WITHDRAWAL-no significant withdrawal symptoms thus far -Continue outpatient gabapentin -Alcohol withdrawal protocol MAINTENANCE ISSUES -DVT prophylaxis; SCUDs -GI prophylaxis; not indicated -Buchanan catheter; not indicated -Nutrition; 2 g sodium diet -Nicotine dependence; not required CODE STATUS-FULL CODE ADMISSION STATUS-patient will be admitted to inpatient status, expect at least a 2 night hospital stay for evaluation and management of problems as outlined above. At the time of this admission I do not reasonably expected evaluation and management of this problem will require more than a 96 hour hospital stay. DISPOSITION-anticipate discharge to home after the hospital stay. PRIMARY CARE PROVIDER-Dr. James
[2019-04-13] MEDS: Spironolactone 25 MG Tab PO SCH ×2 (09:49→21:19)
[2019-04-13] MEDS: Furosemide 20 MG Tab PO SCH (09:49)
[2019-04-13] MEDS ORDERED: Melatonin 3 MG Tab PO PRN (21:00)
[2019-04-14] MEDS: oxyCODONE 5 MG Tab PO PRN ×2 (00:01→11:07)
[2019-04-14] MEDS: Levothyroxine 50 MCG Tab PO SCH (07:55)
[2019-04-14] MEDS: Potassium Chloride 20 MEQ Tab.ER PO SCH (07:56)
[2019-04-14] MEDS: Folic Acid 1 MG Tab PO SCH (08:00)
[2019-04-14] MEDS: Ferrous Sulfate 325 MG Tab PO SCH (08:00)
[2019-04-14] MEDS: Spironolactone 25 MG Tab PO SCH (08:00)
[2019-04-14] MEDS: Magnesium Oxide 400 MG Tab PO SCH (08:01)
[2019-04-14] MEDS: Gabapentin 300 MG Cap PO SCH ×2 (08:01→14:01)
[2019-04-14] MEDS: prednisoLONE 15 MG/5 ML Soln UD Cup PO SCH (08:01)
[2019-04-14] MEDS: Furosemide 20 MG Tab PO SCH (08:01)
[2019-04-14] MEDS: Thiamine 100 MG Tab PO SCH (08:02)
--- NOTE | 2019-04-14 09:49 | PCM.PN ---
- General Info Date of Service: 04/14/19 Subjective Update: Ms. Grove has been stable since yesterday, other than increase in anxiety. Ascites remains fairly well controlled, she does have some peripheral edema. Reports ongoing difficulty with depression and anxiety over the past few months. Functional Status: Reports: Tolerating Diet, Ambulating, Urinating - Review of Systems General: Reports: Weakness. Denies: Fever, Chills Pulmonary: Reports: No Symptoms Cardiovascular: Reports: No Symptoms Gastrointestinal: Reports: Abdominal Pain. Denies: Difficulty Swallowing, Hematochezia, Melena, Nausea, Vomiting Genitourinary: Reports: No Symptoms Psychiatric: Reports: Depression, Anxiety - Patient Data Vitals - Most Recent: Last Vital Signs Temp 97 F 04/14/19 07:48 Pulse 101 H 04/13/19 16:00 Resp 12 04/14/19 07:48 BP 107/74 04/14/19 07:48 Pulse Ox 99 04/14/19 08:16 Weight - Most Recent: 197 lb 4.8 oz I&O - Last 24 Hours: Intake & Output 04/13/19 04/14/19 04/14/19 22:59 06:59 14:59 Intake Total 1200 Output Total 1325 1950 Balance -1325 -750 Lab Results Last 24 Hours: Laboratory Results - last 24 hr 04/14/19 04/14/19 Range/Units 04:15 04:15 PT 16.6 H (9.5-12.0) sec INR 1.58 H (0.80-1.20) Sodium 138 L (140-148) mmol/L Potassium 4.4 (3.6-5.2) mmol/L Chloride 105 (100-108) mmol/L Carbon Dioxide 27 (21-32) mmol/L Anion Gap 10.4 (5.0-14.0) mmol/L BUN 2 L (7-18) mg/dL Creatinine 0.6 (0.6-1.0) mg/dL Est Cr Clr Drug Dosing 105.25 mL/min Estimated GFR (MDRD) > 60 (>60) Glucose 75 (74-106) mg/dL Calcium 8.3 L (8.5-10.1) mg/dL Total Bilirubin 3.2 H (0.2-1.0) mg/dL AST 78 H (15-37) U/L ALT 31 (12-78) U/L Alkaline Phosphatase 208 H (46-116) U/L Total Protein 7.4 (6.4-8.2) g/dL Albumin 1.5 L (3.4-5.0) g/dL Globulin 5.9 H (2.3-3.5) g/dL Albumin/Globulin Ratio 0.3 L (1.2-2.2) Abdirashid Results Last 24 Hours: Microbiology 04/11/19 14:25 Anaerobic Culture - Preliminary Peritoneal Fluid NO GROWTH AFTER 2 DAYS 04/11/19 14:46 Gram Stain - Final Abdominal Fluid - Aspirate Body Fluid Culture - Preliminary NO GROWTH AFTER 2 DAYS 04/11/19 15:17 AFB Specimen Processing Tissue - Final Abdominal Fluid - Aspirate Acid Fast Bacilli Smear - Final Acid Fast Bacilli Culture - Preliminary Med Orders - Current: Current Medications Albuterol (Proventil Neb Soln) 2.5 mg NEB Q4H PRN PRN Reason: Shortness Of Breath/wheezing Citalopram Hydrobromide (Celexa) 20 mg PO DAILY [facility] Ferrous Sulfate (Ferrous Sulfate) 325 mg PO BID [facility] Last Admin: 04/14/19 08:00 Dose: 325 mg Folic Acid (Folic Acid) 1 mg PO DAILY [facility] Last Admin: 04/14/19 08:00 Dose: 1 mg Furosemide (Lasix) 20 mg PO DAILY [facility] Last Admin: 04/14/19 08:01 Dose: 20 mg Gabapentin (Neurontin) 600 mg PO TID [facility] Last Admin: 04/14/19 08:01 Dose: 600 mg Levothyroxine Sodium (Synthroid) 50 mcg PO ACBREAKFAST [facility] Last Admin: 04/14/19 07:55 Dose: 50 mcg Magnesium Oxide (Magnesium Oxide) 400 mg PO BID [facility] Last Admin: 04/14/19 08:01 Dose: 400 mg Melatonin (Melatonin) 9 mg PO BEDTIME PRN PRN Reason: Insomnia Last Admin: 04/13/19 21:19 Dose: 9 mg Ondansetron HCl (Zofran) 4 mg IV Q4H PRN PRN Reason: Nausea/Vomiting Oxycodone HCl (Oxycodone) 5 mg PO Q4H PRN PRN Reason: Headache/Pain Last Admin: 04/14/19 00:01 Dose: 5 mg Polyethylene Glycol (Miralax) 17 gm PO DAILY PRN PRN Reason: Constipation Last Admin: 04/13/19 13:48 Dose: 17 gm Potassium Chloride (Klor-Con M20) 20 meq PO BIDMEALS [facility] Last Admin: 04/14/19 07:56 Dose: 20 meq Prednisolone (Orapred 15 Mg/5ml Soln) 40 mg PO DAILY [facility] Last Admin: 04/14/19 08:01 Dose: 40 mg Sodium Chloride (Saline Flush) 10 ml FLUSH ASDIRECTED PRN PRN Reason: Keep Vein Open Spironolactone (Aldactone) 25 mg PO BID [facility] Last Admin: 04/14/19 08:00 Dose: 25 mg Thiamine HCl (Vitamin B-1) 100 mg PO DAILY [facility] Last Admin: 04/14/19 08:02 Dose: 100 mg Discontinued Medications Hydromorphone HCl (Dilaudid) 0.5 mg IVPUSH ONETIME ONE Stop: 04/11/19 07:21 Last Admin: 04/11/19 07:32 Dose: 0.5 mg Hydromorphone HCl (Dilaudid) 0.5 mg IVPUSH ONETIME ONE Stop: 04/11/19 10:34 Last Admin: 04/11/19 11:23 Dose: 0.5 mg Sodium Chloride (Normal Saline) 1,000 mls @ 500 mls/hr IV ASDIRECTED [facility] Last Admin: 04/11/19 07:34 Dose: 500 mls/hr Multivitamins/Minerals 10 ml/Thiamine HCl 100 mg/ Folic Acid 1 mg/ Magnesium Sulfate 2 gm/ Sodium Chloride 1,015.2 mls @ 100 mls/hr IV ONETIME ONE Stop: 04/11/19 20:39 Last Admin: 04/11/19 11:14 Dose: 100 mls/hr Sodium Chloride (Normal Saline) 1,000 mls @ 125 mls/hr IV ASDIRECTED [facility] Last Admin: 04/12/19 05:12 Dose: 125 mls/hr Ondansetron HCl (Zofran) 4 mg IVPUSH ONETIME ONE Stop: 04/11/19 07:21 Last Admin: 04/11/19 07:33 Dose: 4 mg - Exam General: Alert, Oriented, Cooperative, Mild Distress Lungs: Clear to Auscultation, Normal Respiratory Effort Cardiovascular: Regular Rate, Regular Rhythm, No Murmurs GI/Abdominal Exam: Soft, No Organomegaly, Distended, Tender. No: Guarding, Rigid, Rebound Extremities: Non-Tender, Pedal Edema Sepsis Event Note - Evaluation Sepsis Screening Result: No Definite Risk - Focused Exam Vital Signs: Vital Signs Temp Resp BP Pulse Ox 04/14/19 08:16 99 04/14/19 07:48 97 F 12 107/74 98 04/14/19 06:00 16 102/67 96 04/14/19 04:00 98 F 16 102/62 96 04/14/19 02:00 16 99/54 L 90 L 04/14/19 00:00 97.6 F 20 112/37 L 95 04/13/19 22:00 16 134/81 97 Date Exam was Performed: 04/14/19 Time Exam was Performed: 09:45 - Problem List Review Problem List Initiated/Reviewed/Updated: Yes - My Orders Last 24 Hours: My Active Orders 04/13/19 09:15 Furosemide [Lasix] 20 mg PO DAILY Spironolactone [Aldactone] 25 mg PO BID 04/13/19 21:00 Melatonin 9 mg PO BEDTIME PRN 04/14/19 09:41 Patient Status [ADT] Routine 04/14/19 09:42 Discontinue Telemetry Monitoring [Cardiac Monitoring Discontinue] [RC] Click to Edit 04/14/19 09:43 Consult to [employer] [CONS] Routine 04/14/19 09:44 VL Duplex Lwr Ext Veins Ltd Lt [US] Urgent 04/14/19 09:45 Citalopram [Celexa] 20 mg PO DAILY 04/15/19 05:00 COMPREHENSIVE METABOLIC PN,CMP [CHEM] Timed INR,PT,PROTHROMBIN TIME [COAG] Timed - Plan Plan:: ASSESSMENT AND PLAN ABDOMINAL PAIN AND DISTENTION SECONDARY TO LARGE VOLUME ASCITES-pain improved following paracentesis, ascites remains fairly well controlled. She does have peripheral edema left leg greater than right -Surgical follow-up per Dr. Gonsalez -Saline lock IV -Spironolactone 25 mg twice daily -Furosemide 20 mg daily -Continue 2 g sodium diet -Doppler study left lower extremity ACUTE ALCOHOLIC HEPATITIS AND UNDERLYING CIRRHOSIS-secondary to longstanding daily alcohol abuse. Bilirubin has increased from admission and INR elevated. [facility] and is improved at 24 -Prednisolone 40 mg p.o. daily -Alcohol cessation -Diuretic therapy as above ANXIETY AND DEPRESSION-longstanding -Celexa 20 mg p.o. daily ALCOHOL WITHDRAWAL-no significant withdrawal symptoms thus far -Continue outpatient gabapentin -Alcohol withdrawal protocol MAINTENANCE ISSUES -DVT prophylaxis; SCUDs -GI prophylaxis; not indicated -Buchanan catheter; not indicated -Nutrition; 2 g sodium diet -Nicotine dependence; not required CODE STATUS-FULL CODE ADMISSION STATUS-patient will be admitted to inpatient status, expect at least a 2 night hospital stay for evaluation and management of problems as outlined above. At the time of this admission I do not reasonably expected evaluation and management of this problem will require more than a 96 hour hospital stay. DISPOSITION-anticipate discharge to home after the hospital stay. PRIMARY CARE PROVIDER-Dr. James
[2019-04-14] MEDS ORDERED: Citalopram 20 MG Tab PO SCH (10:00)
[2019-04-14 11:43] VITALS: BP 133/78; PULSE 89
--- NOTE | 2019-04-14 12:48 | PCM.DCSUM1 ---
Discharge Summary - Hospital Course Brief History: Ms. Grove is a 44-year-old woman who was admitted through the emergency department with abdominal pain secondary to large volume ascites, secondary to hepatic cirrhosis and acute alcoholic hepatitis. - Discharge Data Discharge Date: 04/14/19 Discharge Disposition: Home, Self-Care 01 Condition: Fair - Referral to Home Health Primary Care Physician: Rick James MD - Discharge Diagnosis/Problem(s) (1) Ascites SNOMED Code(s): 383509741 ICD Code: R18.8 - OTHER ASCITES Status: Acute Current Visit: Yes (2) Acute alcoholic hepatitis SNOMED Code(s): 8931873 ICD Code: K70.10 - ALCOHOLIC HEPATITIS WITHOUT ASCITES Status: Acute Current Visit: Yes (3) Depression SNOMED Code(s): 39073816 ICD Code: F32.9 - MAJOR DEPRESSIVE DISORDER, SINGLE EPISODE, UNSPECIFIED Status: Acute Current Visit: Yes (4) Abdominal pain SNOMED Code(s): 22095449 ICD Code: R10.9 - UNSPECIFIED ABDOMINAL PAIN Status: Acute Current Visit : Yes Qualifiers: Abdominal location: generalized Qualified Code(s): R10.84 - Generalized abdominal pain (5) Alcoholic cirrhosis of liver with ascites SNOMED Code(s): 813724382, 557767917 ICD Code: K70.31 - ALCOHOLIC CIRRHOSIS OF LIVER WITH ASCITES Status: Acute Current Visit: Yes (6) Bariatric surgery status SNOMED Code(s): 998526026, 994148491, 317786090 ICD Code: Z98.84 - BARIATRIC SURGERY STATUS Status: Chronic Current Visit : No (7) Alcohol abuse SNOMED Code(s): 63221668 ICD Code: F10.10 - ALCOHOL ABUSE, UNCOMPLICATED Status: Chronic Current Visit: Yes - Patient Summary/Data Consults: Consultations 04/14/19 09:43 Consult to [employer] [CONS] Routine Comment: Physician Instructions: Quantity: Reason for Consult: Please review 2 g sodium diet Hospital Course: Ms. Grove is a 44-year-old woman who was admitted through the emergency department with abdominal pain and distention secondary to ascites with acute alcoholic hepatitis and underlying cirrhosis. She has had a longstanding history of daily alcohol use and continued to consume alcohol up until the evening prior to admission. Over the past week she has developed progressive abdominal distention and pain. She was hospitalized here approximately 9 months ago for total abdominal hysterectomy and BSO because of vaginal bleeding. Hospital course was complicated by alcohol withdrawal, acute kidney injury, and respiratory failure. CT scan obtained in the emergency department shows large volume of ascites. Hepatomegaly as well as splenomegaly with diffuse fatty infiltration of the liver. She has had previous Iman-en-Y gastric bypass surgery. She denies recent fever, chills, or sweats and has had no shortness of breath or chest pain. On admission she was placed on a 2 g sodium diet and because of dehydration initially was given IV fluids which were discontinued the following day. She was seen and evaluated by Dr. Gonsalez for surgery consult. After abdominal ultrasound for localization of ascites he did perform a paracentesis. After removal of fluid she felt significantly improved with less abdominal pain and shortness of breath. Fluid was sent for analysis which showed no evidence of underlying infection, other findings were consistent with ascites. Her Maddrey discriminant function was calculated, and found to be elevated at 32 so she was started on prednisolone 40 mg daily. By the time of discharge her discriminant function had improved to a calculated score of 24. She was started on oral furosemide and Spironolactone for ongoing management of her ascites and peripheral edema. She will be discharged home on both of these medications in addition to the prednisolone. On the day of discharge she was found to have persistent edema left much greater than right. Venous Doppler study of the left leg was obtained which showed no evidence of deep vein thrombosis. While hospitalized she did show evidence of significant depression and anxiety, we discussed this further and the symptoms have been present for some time. She was started on Celexa 40 mg p.o. daily, this will also be continued after discharge. She was seen by the dietitian prior to discharge to review a 2 g sodium diet. Activity will be as tolerated and she will be on a 2 g sodium diet. Follow-up appointment will be scheduled with her primary care provider within 1 week. CMP and INR will be obtained at the time of follow-up appointment. - Patient Instructions Diet: Low Sodium Activity: As Tolerated Other/Special Instructions: Please schedule follow-up appointment with primary care provider within 1 week. CMP and INR should be obtained at the time of follow-up appointment. - Discharge Plan *PRESCRIPTION DRUG MONITORING PROGRAM REVIEWED*: Not Applicable *COPY OF PRESCRIPTION DRUG MONITORING REPORT IN PATIENT FARHAT: Not Applicable Prescriptions/Med Rec: Citalopram [Citalopram HBr] 20 mg PO DAILY #30 tablet Furosemide [Lasix] 20 mg PO DAILY #30 tablet prednisoLONE [OraPred 15 MG/5ML Soln] 40 mg PO DAILY #100 ml Spironolactone [Aldactone] 25 mg PO BID #60 tablet Home Medications: Home Meds Multivitamin [Multi-Vitamin Daily] 1 tab PO DAILY 12/02/15 [History] Iron,Carbonyl/Ascorbic Acid [Vitron-C Tablet] 1 each PO DAILY 08/04/16 [History] Gabapentin [Neurontin] 600 mg PO TID 07/13/18 [History] Albuterol Sulfate [Proair Respiclick] 1 - 2 puff IH Q4HR PRN 08/10/18 [History] Cholecalciferol (Vitamin D3) [Vitamin D3] 50,000 unit PO MOWEFR 08/10/18 [ History] Cyanocobalamin (Vitamin B-12) [Vitamin B-12] 1,000 mcg SL DAILY 08/10/18 [ History] Levothyroxine [Synthroid] 50 mcg PO ACBREAKFAST 08/10/18 [History] Ergocalciferol (Vitamin D2) [Vitamin D2] 400 units PO DAILY 11/23/18 [History] Ferrous Sulfate 325 mg PO BID 11/23/18 [History] Lidocaine/Prilocaine [EMLA Crm] 1 applic TOP DAILY PRN 11/23/18 [History] Magnesium 400 mg PO BID 11/23/18 [History] Potassium Chloride 20 meq PO BID 11/23/18 [History] Citalopram [Citalopram HBr] 20 mg PO DAILY #30 tablet 04/14/19 [Rx] Furosemide [Lasix] 20 mg PO DAILY #30 tablet 04/14/19 [Rx] Spironolactone [Aldactone] 25 mg PO BID #60 tablet 04/14/19 [Rx] prednisoLONE [OraPred 15 MG/5ML Soln] 40 mg PO DAILY #100 ml 04/14/19 [Rx] Patient Handouts: Alcohol Use Disorder, Ascites Referrals: Rick James MD [Primary Care Provider] - 04/17/19 12:00 pm (Please arrive at 1130am for labs prior to appointmnet with Dr. James.) - Discharge Summary/Plan Comment DC Time >30 min.: No - Patient Data Vitals - Most Recent: Last Vital Signs Temp 97 F 04/14/19 11:42 Pulse 89 04/14/19 11:42 Resp 12 04/14/19 11:42 BP 133/78 04/14/19 11:42 Pulse Ox 99 04/14/19 11:42 Weight - Most Recent: 197 lb 4.8 oz I&O - Last 24 hours: Intake & Output 04/13/19 04/14/19 04/14/19 22:59 06:59 14:59 Intake Total 1200 Output Total 1325 1950 Balance -1325 -750 Lab Results - Last 24 hrs: Laboratory Results - last 24 hr 04/14/19 04/14/19 Range/Units 04:15 04:15 PT 16.6 H (9.5-12.0) sec INR 1.58 H (0.80-1.20) Sodium 138 L (140-148) mmol/L Potassium 4.4 (3.6-5.2) mmol/L Chloride 105 (100-108) mmol/L Carbon Dioxide 27 (21-32) mmol/L Anion Gap 10.4 (5.0-14.0) mmol/L BUN 2 L (7-18) mg/dL Creatinine 0.6 (0.6-1.0) mg/dL Est Cr Clr Drug Dosing 105.25 mL/min Estimated GFR (MDRD) > 60 (>60) Glucose 75 (74-106) mg/dL Calcium 8.3 L (8.5-10.1) mg/dL Total Bilirubin 3.2 H (0.2-1.0) mg/dL AST 78 H (15-37) U/L ALT 31 (12-78) U/L Alkaline Phosphatase 208 H (46-116) U/L Total Protein 7.4 (6.4-8.2) g/dL Albumin 1.5 L (3.4-5.0) g/dL Globulin 5.9 H (2.3-3.5) g/dL Albumin/Globulin Ratio 0.3 L (1.2-2.2) FRENCH Results - Last 24 hrs: Microbiology 04/11/19 14:25 Anaerobic Culture - Preliminary Peritoneal Fluid NO GROWTH AFTER 2 DAYS 04/11/19 14:46 Gram Stain - Final Abdominal Fluid - Aspirate Body Fluid Culture - Preliminary NO GROWTH AFTER 2 DAYS 04/11/19 15:17 AFB Specimen Processing Tissue - Final Abdominal Fluid - Aspirate Acid Fast Bacilli Smear - Final Acid Fast Bacilli Culture - Preliminary Med Orders - Current: Current Medications Albuterol (Proventil Neb Soln) 2.5 mg NEB Q4H PRN PRN Reason: Shortness Of Breath/wheezing Citalopram Hydrobromide (Celexa) 20 mg PO DAILY [facility] Last Admin: 04/14/19 11:07 Dose: 20 mg Ferrous Sulfate (Ferrous Sulfate) 325 mg PO BID [facility] Last Admin: 04/14/19 08:00 Dose: 325 mg Folic Acid (Folic Acid) 1 mg PO DAILY [facility] Last Admin: 04/14/19 08:00 Dose: 1 mg Furosemide (Lasix) 20 mg PO DAILY [facility] Last Admin: 04/14/19 08:01 Dose: 20 mg Gabapentin (Neurontin) 600 mg PO TID [facility] Last Admin: 04/14/19 08:01 Dose: 600 mg Levothyroxine Sodium (Synthroid) 50 mcg PO ACBREAKFAST [facility] Last Admin: 04/14/19 07:55 Dose: 50 mcg Magnesium Oxide (Magnesium Oxide) 400 mg PO BID [facility] Last Admin: 04/14/19 08:01 Dose: 400 mg Melatonin (Melatonin) 9 mg PO BEDTIME PRN PRN Reason: Insomnia Last Admin: 04/13/19 21:19 Dose: 9 mg Ondansetron HCl (Zofran) 4 mg IV Q4H PRN PRN Reason: Nausea/Vomiting Oxycodone HCl (Oxycodone) 5 mg PO Q4H PRN PRN Reason: Headache/Pain Last Admin: 04/14/19 11:07 Dose: 5 mg Polyethylene Glycol (Miralax) 17 gm PO DAILY PRN PRN Reason: Constipation Last Admin: 04/13/19 13:48 Dose: 17 gm Potassium Chloride (Klor-Con M20) 20 meq PO BIDMEALS [facility] Last Admin: 04/14/19 07:56 Dose: 20 meq Prednisolone (Orapred 15 Mg/5ml Soln) 40 mg PO DAILY [facility] Last Admin: 04/14/19 08:01 Dose: 40 mg Sodium Chloride (Saline Flush) 10 ml FLUSH ASDIRECTED PRN PRN Reason: Keep Vein Open Spironolactone (Aldactone) 25 mg PO BID [facility] Last Admin: 04/14/19 08:00 Dose: 25 mg Thiamine HCl (Vitamin B-1) 100 mg PO DAILY [facility] Last Admin: 04/14/19 08:02 Dose: 100 mg Discontinued Medications Hydromorphone HCl (Dilaudid) 0.5 mg IVPUSH ONETIME ONE Stop: 04/11/19 07:21 Last Admin: 04/11/19 07:32 Dose: 0.5 mg Hydromorphone HCl (Dilaudid) 0.5 mg IVPUSH ONETIME ONE Stop: 04/11/19 10:34 Last Admin: 04/11/19 11:23 Dose: 0.5 mg Sodium Chloride (Normal Saline) 1,000 mls @ 500 mls/hr IV ASDIRECTED [facility] Last Admin: 04/11/19 07:34 Dose: 500 mls/hr Multivitamins/Minerals 10 ml/Thiamine HCl 100 mg/ Folic Acid 1 mg/ Magnesium Sulfate 2 gm/ Sodium Chloride 1,015.2 mls @ 100 mls/hr IV ONETIME ONE Stop: 04/11/19 20:39 Last Admin: 04/11/19 11:14 Dose: 100 mls/hr Sodium Chloride (Normal Saline) 1,000 mls @ 125 mls/hr IV ASDIRECTED [facility] Last Admin: 04/12/19 05:12 Dose: 125 mls/hr Ondansetron HCl (Zofran) 4 mg IVPUSH ONETIME ONE Stop: 04/11/19 07:21 Last Admin: 04/11/19 07:33 Dose: 4 mg - Exam General: Reports: Alert, Oriented, Cooperative, Mild Distress Lungs: Reports: Clear to Auscultation, Normal Respiratory Effort Cardiovascular: Reports: Regular Rate, Regular Rhythm, No Murmurs GI/Abdominal Exam: Soft, No Organomegaly, Distended, Tender. No: Guarding, Rigid, Rebound Extremities: Non-Tender, Pedal Edema
--- NOTE | 2019-04-14 14:34 | US ---
VL Duplex Lwr Ext Veins Ltd Lt INDICATION: Left calf swelling FINDINGS: Ultrasound examination of the lower extremity using Doppler and compressive technique demonstrates that the common femoral, femoral, and popliteal veins are patent, and negative for thrombus. The calf veins were segmentally visualized and are negative where seen. IMPRESSION: Negative for deep venous thrombosis.
--- NOTE | 2019-04-17 13:35 | OR ---
DATE OF PROCEDURE: 04/11/2019 SURGEON: Errol Gonsalez MD PREOPERATIVE DIAGNOSIS: Dense ascites secondary to alcoholic liver disease. POSTOPERATIVE DIAGNOSIS: Dense ascites secondary to alcoholic liver disease. PROCEDURE: Ultrasound-guided paracentesis ([id number]). ANESTHESIA: Local. INDICATIONS FOR PROCEDURE: This is a 44-year-old with dense ascites related to alcoholic liver disease. The plan is to proceed with a paracentesis. Potential risks of the procedure including bleeding, infection, injury to the underlying viscera were reviewed, and the patient wishes to proceed. DETAILS OF PROCEDURE: In the patient's hospital bed, the right lateral abdomen was evaluated with an ultrasound and the location marked for paracentesis. That area was then prepped and draped, anesthetized with 1% lidocaine mixed with Marcaine and the paracentesis catheter was placed, 2500 mL of clear serous fluid was evacuated. Full laboratory workup was undertaken and after 2500 mL of fluid was removed, no further fluid could be removed from this location. Catheter withdrawn, a pursestring stitch of 2-0 Prolene stitch was placed at the catheter site to avoid postoperative leakage of pleural fluid and dressing applied. There were no evident complications. Errol Gonsalez MD /[id number]
== END 2019-04-14 14:54 | disposition home or self-care (01) | DRG 280 ==
LOC: JP.ED 06:28 → JP.ICU 09:11
PROVIDERS: ADMIT Hospitalist; ATTEND Hospitalist
PROC: 0W9G3ZZ Drainage of Peritoneal Cavity, Percutaneous Approach (ICD-10-PCS; principal; 2019-04-11)
DX: K70.31 Alcoholic cirrhosis of liver with ascites (principal); K70.11 Alcoholic hepatitis with ascites; F10.231 Alcohol dependence with withdrawal delirium; N17.9 Acute kidney failure, unspecified; J96.90 Respiratory failure, unspecified, unspecified whether with hypoxia or hypercapnia; R16.0 Hepatomegaly, not elsewhere classified; R16.1 Splenomegaly, not elsewhere classified; E86.0 Dehydration; F41.9 Anxiety disorder, unspecified; F32.9 Major depressive disorder, single episode, unspecified; J45.909 Unspecified asthma, uncomplicated; K21.9 Gastro-esophageal reflux disease without esophagitis; N93.8 Other specified abnormal uterine and vaginal bleeding; E03.9 Hypothyroidism, unspecified; F17.210 Nicotine dependence, cigarettes, uncomplicated; E53.8 Deficiency of other specified B group vitamins; D50.9 Iron deficiency anemia, unspecified; Z90.49 Acquired absence of other specified parts of digestive tract; Z90.710 Acquired absence of both cervix and uterus; Z98.51 Tubal ligation status; Z98.84 Bariatric surgery status; Z79.899 Other long term (current) drug therapy; Z79.890 Hormone replacement therapy; Z88.1 Allergy status to other antibiotic agents
CPT/HCPCS: 36415; 74176; 74176-26; 80053; 82150; 82945; 83605; 83615; 83690; 83735; 83986; 84155; 85025; 85610; 87015; 87070; 87075; 87102; 87116; 87205; 87206; 87220; 88112; 88305; 89050; 93971-26-LT; 93971-LT; 96361; 96374; 96375; 99285-25; A9270-GY; G0480; J1170; J2405; J3411; J3475; J3490; J7030

== ENCOUNTER 2019-04-15 01:51 | Emergency (ER) | payer BC ==
[2019-04-15 02:19] VITALS: PULSE 80
--- NOTE | 2019-04-15 02:47 | EDM.PDOC ---
ED HPI GENERAL MEDICAL PROBLEM - General Chief Complaint: Lower Extremity Injury/Pain Stated Complaint: LOWER ABD PAIN,LEGS SWELLING Time Seen by Provider: 04/15/19 02:47 Source of Information: Reports: Patient History Limitations: Reports: No Limitations - History of Present Illness INITIAL COMMENTS - FREE TEXT/NARRATIVE: pt was discharged from the ICU yesterday. She was hospitalized with liver failure. She noted today that she had marked fluid retention in her legs. She states because of the marked swelling she has tingling in her legs. Onset: Other ( The swelling became much worse today. She has alcholic cirrhosis of the liver and she has a very low albumin) Duration: Hour(s): Location: Reports: Lower Extremity, Left, Lower Extremity, Right, Other ( The swelling does extend into the abdomanal wall. ) Associated Symptoms: Reports: Other (marked increased swelling in the legs. ) Bilateral Leg Pain Score (Numeric/FACES): 10 - Related Data Allergies Allergy/AdvReac Type Severity Reaction Status Date / Time doxycycline Allergy Rash Verified 04/15/19 01:58 erythromycin base Allergy Rash Verified 04/15/19 01:58 procaine [From Novocain] Allergy Rash Verified 04/15/19 01:58 Home Meds: Home Meds Multivitamin [Multi-Vitamin Daily] 1 tab PO DAILY 12/02/15 [History] Iron,Carbonyl/Ascorbic Acid [Vitron-C Tablet] 1 each PO DAILY 08/04/16 [History] Gabapentin [Neurontin] 600 mg PO TID 07/13/18 [History] Albuterol Sulfate [Proair Respiclick] 1 - 2 puff IH Q4HR PRN 08/10/18 [History] Cholecalciferol (Vitamin D3) [Vitamin D3] 50,000 unit PO MOWEFR 08/10/18 [ History] Cyanocobalamin (Vitamin B-12) [Vitamin B-12] 1,000 mcg SL DAILY 08/10/18 [ History] Levothyroxine [Synthroid] 50 mcg PO ACBREAKFAST 08/10/18 [History] Ergocalciferol (Vitamin D2) [Vitamin D2] 400 units PO DAILY 11/23/18 [History] Ferrous Sulfate 325 mg PO BID 11/23/18 [History] Lidocaine/Prilocaine [EMLA Crm] 1 applic TOP DAILY PRN 09/18/19 [History] Magnesium 400 mg PO BID 11/23/18 [History] Potassium Chloride 20 meq PO BID 11/23/18 [History] Citalopram [Citalopram HBr] 20 mg PO DAILY #30 tablet 04/14/19 [Rx] Furosemide [Lasix] 20 mg PO DAILY #30 tablet 04/14/19 [Rx] Spironolactone [Aldactone] 25 mg PO BID #60 tablet 04/14/19 [Rx] prednisoLONE [OraPred 15 MG/5ML Soln] 40 mg PO DAILY #100 ml 04/14/19 [Rx] Past Medical History HEENT History: Reports: None Cardiovascular History: Reports: Hypertension Respiratory History: Reports: Asthma Gastrointestinal History: Reports: GERD, Other (See Below) Other Gastrointestinal History: RNY 2002 Genitourinary History: Reports: None Other Genitourinary History: 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 fistula [employer] History: Reports: Dysfunctional Uterine Bleeding, Musculoskeletal History: Reports: Fracture Psychiatric History: Reports: Addiction, Anxiety, Depression Endocrine/Metabolic History: Reports: Hypothyroidism, Vitamin D Deficiency Hematologic History: Reports: Anemia, B12 Deficiency, Blood Transfusion(s), Iron Deficiency, Other (See Below) Other Hematologic History: vitamin D def - Infectious Disease History Infectious Disease History: Reports: Chicken Pox, Measles - Past Surgical History HEENT Surgical History: Reports: Oral Surgery Respiratory Surgical History: Reports: None GI Surgical History: Reports: Bariatric Procedure, Cholecystectomy, Colonoscopy , EGD Female Surgical History: Reports: Section, Hysterectomy, Tubal Ligation Endocrine Surgical History: Reports: None Musculoskeletal Surgical History: Reports: None, Other (See Below) Other Musculoskeletal Surgeries/Procedures:: Ankle plate/pin - hdwe removed Social & Family History - Family History Family Medical History: Noncontributory Cardiac: Reports: [place] - Tobacco Use Smoking Status *Q: Current Every Day Smoker Years of Tobacco use: 5 Packs/Tins Daily: 0.5 - Caffeine Use Caffeine Use: Reports: Soda Caffeine Use Comment: occasional soda - Alcohol Use Days Per Week of Alcohol Use: 7 Number of Drinks Per Day: 5 Total Drinks Per Week: 35 - Recreational Drug Use Recreational Drug Use: No Review of Systems - Review of Systems Review Of Systems: See Below Constitutional: Reports: No Symptoms Eyes: Reports: No Symptoms Ears: Reports: No Symptoms Nose: Reports: No Symptoms Mouth/Throat: Reports: No Symptoms Respiratory: Reports: No Symptoms Cardiovascular: Reports: No Symptoms, Edema GI/Abdominal: Reports: Other (pt has edea of the lower abdomanal wall. ) Genitourinary: Reports: Other ( urine is very dark. ) Musculoskeletal: Reports: No Symptoms, Other ( she has tingling and discomfort in her lower legs. They are markedly swollen. ) ED EXAM, GENERAL - Physical Exam Exam: See Below Free Text/Narrative:: pt arrived with marked increase in the swelling of her lower extremities, they feel very tight. She was discharged from ICU yesterday. Exam Limited By: No Limitations General Appearance: Alert, Moderate Distress Ears: Normal TMs Nose: Normal Inspection Throat/Mouth: Normal Inspection Head: Atraumatic Neck: Normal Inspection Respiratory/Chest: No Respiratory Distress Cardiovascular: Regular Rate, Rhythm GI/Abdominal: Soft, Non-Tender, Other (lower abdomanal wall has swelling on the lower portion) (Female) Exam: Deferred Rectal (Female) Exam: Deferred Back Exam: Normal Inspection Extremities: Other (plus 3 edema of the lower extremities clear to the lower abdoman. ) Neurological: Alert, Oriented, Normal Cognition Course - Vital Signs Last Recorded V/S: Last Vital Signs Temp 35.7 C 04/15/19 02:11 Pulse 80 04/15/19 02:11 Resp 18 04/15/19 02:11 BP 136/87 04/15/19 04:07 Pulse Ox 100 04/15/19 02:11 - Orders/Labs/Meds Orders: Active Orders 24 hr Category Date Time Status CULTURE URINE [RM] Stat Lab 04/15/19 03:44 Received Magnesium Sulfate/Water [Magnesium Sulfate in Water Med 04/15/19 03:51 Active Premix] 2 gm Premix Bag 1 bag IV ONETIME Sodium Chloride 0.9% [Saline Flush] Med 04/15/19 03:00 Active 10 ml FLUSH ASDIRECTED PRN Saline Lock Insert [OM.PC] Routine Oth 04/15/19 03:00 Ordered Medication Orders Magnesium Sulfate 2 gm/ Premix 50 mls @ 12.5 mls/hr IV ONETIME ONE Stop: 04/15/19 07:50 Last Admin: 04/15/19 04:07 Dose: 12.5 mls/hr Sodium Chloride (Saline Flush) 10 ml FLUSH ASDIRECTED PRN PRN Reason: Keep Vein Open Last Admin: 04/15/19 03:25 Dose: 10 ml Labs: Laboratory Tests 04/15/19 04/15/19 04/15/19 Range/Units 03:05 03:20 03:20 WBC 7.2 (4.5-11.0) K/uL RBC 2.93 L (3.30-5.50) M/uL Hgb 10.8 L (12.0-15.0) g/dL Hct 33.2 L (36.0-48.0) % MCV 113 H (80-98) fL MCH 37 H (27-31) pg MCHC 33 (32-36) % Plt Count 117 L (150-400) K/uL Neut % (Auto) 64 (36-66) % Lymph % (Auto) 21 L (24-44) % [place] % (Auto) 14 H (2-6) % Eos % (Auto) 0 L (2-4) % Baso % (Auto) 0 (0-1) % Sodium 124 L (140-148) mmol/L Potassium 4.4 (3.6-5.2) mmol/L Chloride 93 L (100-108) mmol/L Carbon Dioxide 24 (21-32) mmol/L Anion Gap 11.4 (5.0-14.0) mmol/L BUN 2 L (7-18) mg/dL Creatinine 0.7 (0.6-1.0) mg/dL Est Cr Clr Drug Dosing 94.01 mL/min Estimated GFR (MDRD) > 60 (>60) Glucose 81 (74-106) mg/dL Calcium 8.1 L (8.5-10.1) mg/dL Magnesium (1.8-2.4) mg/dL Total Bilirubin 3.3 H (0.2-1.0) mg/dL AST 83 H (15-37) U/L ALT 36 (12-78) U/L Alkaline Phosphatase 226 H (46-116) U/L Total Protein 8.2 (6.4-8.2) g/dL Albumin 1.9 L (3.4-5.0) g/dL Globulin 6.3 H (2.3-3.5) g/dL Albumin/Globulin Ratio 0.3 L (1.2-2.2) Urine Color [place] A (YELLOW) Urine Appearance Cloudy A (CLEAR) Urine pH 6.0 (5.0-8.0) Ur Specific [place] 1.020 (1.008-1.030) Urine Protein Negative (NEGATIVE) mg/dL Urine Glucose (UA) Negative (NEGATIVE) mg/dL Urine Ketones Negative (NEGATIVE) mg/dL Urine Occult Blood Negative (NEGATIVE) Urine Nitrite Positive H (NEGATIVE) Urine Bilirubin Moderate H (NEGATIVE) Urine Urobilinogen 4.0 H (0.2-1.0) EU/dL Ur Leukocyte Esterase Trace H (NEGATIVE) Urine RBC 0-5 (0-5) Urine WBC 5-10 H (0-5) Ur Epithelial Cells Few Amorphous Sediment Not seen Urine Bacteria Many Urine Mucus Not seen 04/15/19 Range/Units 03:20 WBC (4.5-11.0) K/uL RBC (3.30-5.50) M/uL Hgb (12.0-15.0) g/dL Hct (36.0-48.0) % MCV (80-98) fL MCH (27-31) pg MCHC (32-36) % Plt Count (150-400) K/uL Neut % (Auto) (36-66) % Lymph % (Auto) (24-44) % [place] % (Auto) (2-6) % Eos % (Auto) (2-4) % Baso % (Auto) (0-1) % Sodium (140-148) mmol/L Potassium (3.6-5.2) mmol/L Chloride (100-108) mmol/L Carbon Dioxide (21-32) mmol/L Anion Gap (5.0-14.0) mmol/L BUN (7-18) mg/dL Creatinine (0.6-1.0) mg/dL Est Cr Clr Drug Dosing mL/min Estimated GFR (MDRD) (>60) Glucose (74-106) mg/dL Calcium (8.5-10.1) mg/dL Magnesium 1.7 L (1.8-2.4) mg/dL Total Bilirubin (0.2-1.0) mg/dL AST (15-37) U/L ALT (12-78) U/L Alkaline Phosphatase (46-116) U/L Total Protein (6.4-8.2) g/dL Albumin (3.4-5.0) g/dL Globulin (2.3-3.5) g/dL Albumin/Globulin Ratio (1.2-2.2) Urine Color (YELLOW) Urine Appearance (CLEAR) Urine pH (5.0-8.0) Ur Specific [place] (1.008-1.030) Urine Protein (NEGATIVE) mg/dL Urine Glucose (UA) (NEGATIVE) mg/dL Urine Ketones (NEGATIVE) mg/dL Urine Occult Blood (NEGATIVE) Urine Nitrite (NEGATIVE) Urine Bilirubin (NEGATIVE) Urine Urobilinogen (0.2-1.0) EU/dL Ur Leukocyte Esterase (NEGATIVE) Urine RBC (0-5) Urine WBC (0-5) Ur Epithelial Cells Amorphous Sediment Urine Bacteria Urine Mucus Meds: Medications Generic Name Dose Route Start Last Admin Trade Name Freq PRN Reason Stop Dose Admin Magnesium Sulfate 2 gm/ Premix 50 mls @ 12.5 mls/hr 04/15/19 03:51 04/15/19 04:07 IV 04/15/19 07:50 12.5 mls/hr ONETIME ONE Administration Sodium Chloride 10 ml 04/15/19 03:00 04/15/19 03:25 Saline Flush FLUSH 10 ml ASDIRECTED PRN Administration Keep Vein Open Discontinued Medications Generic Name Dose Route Start Last Admin Trade Name Freq PRN Reason Stop Dose Admin Furosemide 60 mg 04/15/19 03:01 04/15/19 03:25 Lasix IVPUSH 04/15/19 03:02 60 mg ONETIME ONE Administration - Re-Assessments/Exams Free Text/Narrative Re-Assessment/Exam: 04/15/19 04:54 pt was given lasix 60 mg iv and she has put out 1200 cc of fluid. She was found to have a low Magnesium and she was given 2 gm of mag iv. Departure - Departure Time of Disposition: 04:55 Disposition: Home, Self-Care 01 Condition: Fair Clinical Impression: Fluid overload, Hypomagnesemia, Cirrhosis of liver - Discharge Information Referrals: Rick James MD [Primary Care Provider] - Forms: ED Department Discharge Care Plan Goals: continue same meds, keep appt with Dr James Wednesday. Tomorrow take 2 of the lasix tablets and then go back to taking 1 per dayu. Sepsis Event Note - Evaluation Sepsis Screening Result: No Definite Risk - Focused Exam Vital Signs: Vital Signs Temp Pulse Resp BP Pulse Ox 04/15/19 04:07 136/87 04/15/19 02:11 35.7 C 80 18 159/101 H 100 Date Exam was Performed: 04/15/19 Time Exam was Performed: 04:47 - My Orders Last 24 Hours: My Active Orders 04/15/19 03:00 Sodium Chloride 0.9% [Saline Flush] 10 ml FLUSH ASDIRECTED PRN Saline Lock Insert [OM.PC] Routine 04/15/19 03:44 CULTURE URINE [RM] Stat 04/15/19 03:51 Magnesium Sulfate/Water [Magnesium Sulfate in Water Premix] 2 gm Premix Bag 1 bag IV ONETIME - Assessment/Plan Last 24 Hours: My Active Orders 04/15/19 03:00 Sodium Chloride 0.9% [Saline Flush] 10 ml FLUSH ASDIRECTED PRN Saline Lock Insert [OM.PC] Routine 04/15/19 03:44 CULTURE URINE [RM] Stat 04/15/19 03:51 Magnesium Sulfate/Water [Magnesium Sulfate in Water Premix] 2 gm Premix Bag 1 bag IV ONETIME
[2019-04-15] MEDS ORDERED: Sodium Chloride 0.9% 10 ML Syringe FLUSH PRN (03:00)
[2019-04-15] MEDS ORDERED: Furosemide 40 MG/4 ML VIAL IVPUSH ONE (03:01)
[2019-04-15] MEDS ORDERED: Furosemide 100 MG/10 ML SDV ONE (03:22)
[2019-04-15] MEDS ORDERED: Magnesium Sulfate/Water 2 GM in Premix Bag 1 BAG IV ONE (03:51)
[2019-04-15] MEDS ORDERED: Magnesium Sulfate/Water 50 ML ONE (04:03)
[2019-04-15 04:28] VITALS: BP 136/87
== END 2019-04-15 05:17 | disposition home or self-care (01) ==
LOC: JP.ED 01:51
DX: E87.70 Fluid overload, unspecified (principal); E83.42 Hypomagnesemia; K74.60 Unspecified cirrhosis of liver; I10 Essential (primary) hypertension; J45.909 Unspecified asthma, uncomplicated; E03.9 Hypothyroidism, unspecified; F32.9 Major depressive disorder, single episode, unspecified; F17.210 Nicotine dependence, cigarettes, uncomplicated; Z88.1 Allergy status to other antibiotic agents; Z88.4 Allergy status to anesthetic agent; Z79.890 Hormone replacement therapy; Z79.899 Other long term (current) drug therapy
CPT/HCPCS: 36415; 80053; 81001; 83735; 85025; 87086; 87088; 87186; 96365; 96375; 99284; J1940; J3475

== ENCOUNTER 2020-08-01 18:41 | Emergency (ER) | payer BC ==
[2020-08-01] MEDS ORDERED: Sodium Chloride 0.9% 10 ML Syringe FLUSH PRN (19:17)
--- NOTE | 2020-08-01 19:23 | EDM.PDOC ---
ED HPI GENERAL MEDICAL PROBLEM - General Chief Complaint: General Stated Complaint: SOB, VOMITING, Time Seen by Provider: 08/01/20 19:16 Source of Information: Reports: Patient History Limitations: Reports: No Limitations - History of Present Illness INITIAL COMMENTS - FREE TEXT/NARRATIVE: Ewelina is a 45-year-old female presenting to the ED for evaluation of increased abdominal pain, nausea and dry heaving, and generally feeling unwell. Patient has a history significant for stage IV cirrhosis with ascites secondary to alcoholic liver disease. She previously had a gastric bypass surgery. She has malabsorption syndrome following gastric bypass including vitamin D deficiency, vitamin B12 deficiency, and hypomagnesemia. She also has a history of complex regional pain syndrome in the right upper extremity. She also has a history for hysterectomy with BSO in 2019, vesicular vaginal fistula and urgency incontinence, hypertension, hypothyroidism, anxiety and depression. During a hospitalization in January 2020 she had a paracentesis taking off 2500 cc of ascitic fluid. He reports that she really has not had much of an appetite today and has been trying to drink fluid without much success. He reports a normal bowel movement this morning. Abdomen Pain Score (Numeric/FACES): 8 - Related Data Allergies Allergy/AdvReac Type Severity Reaction Status Date / Time doxycycline Allergy Rash Verified 08/01/20 19:37 erythromycin base Allergy Rash Verified 08/01/20 19:37 procaine [From Novocain] Allergy Rash Verified 08/01/20 19:37 Home Meds: Home Meds Multivitamin [Multi-Vitamin Daily] 1 tab PO DAILY 12/02/15 [History] Iron,Carbonyl/Ascorbic Acid [Vitron-C Tablet] 1 each PO DAILY 08/04/16 [History] Gabapentin [Neurontin] 600 mg PO TID 07/13/18 [History] Albuterol Sulfate [Proair Respiclick] 1 - 2 puff IH Q4HR PRN 08/10/18 [History] Cyanocobalamin (Vitamin B-12) [Vitamin B-12] 1,000 mcg SL DAILY 08/10/18 [History] Lidocaine/Prilocaine [EMLA Crm] 1 applic TOP DAILY PRN 11/23/18 [History] Magnesium 400 mg PO BID 11/23/18 [History] Potassium Chloride 20 meq PO BID 11/23/18 [History] Citalopram [Citalopram HBr] 20 mg PO DAILY #30 tablet 04/14/19 [Rx] Furosemide [Lasix] 20 mg PO DAILY #30 tablet 04/14/19 [Rx] Spironolactone [Aldactone] 25 mg PO BID #60 tablet 04/14/19 [Rx] Past Medical History HEENT History: Reports: None Cardiovascular History: Reports: Hypertension Respiratory History: Reports: Asthma Gastrointestinal History: Reports: GERD, Other (See Below) Other Gastrointestinal History: RNY 2002 Genitourinary History: Reports: None Other Genitourinary History: 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 fistula [employer] History: Reports: Dysfunctional Uterine Bleeding, Musculoskeletal History: Reports: Fracture Psychiatric History: Reports: Addiction, Anxiety, Depression Endocrine/Metabolic History: Reports: Hypothyroidism, Vitamin D Deficiency Hematologic History: Reports: Anemia, B12 Deficiency, Blood Transfusion(s), Iron Deficiency, Other (See Below) Other Hematologic History: vitamin D def - Infectious Disease History Infectious Disease History: Reports: Chicken Pox, Measles - Past Surgical History HEENT Surgical History: Reports: Oral Surgery Respiratory Surgical History: Reports: None GI Surgical History: Reports: Bariatric Procedure, Cholecystectomy, Colonoscopy, EGD Female Surgical History: Reports: Section, Hysterectomy, Tubal Ligation Endocrine Surgical History: Reports: None Musculoskeletal Surgical History: Reports: None, Other (See Below) Other Musculoskeletal Surgeries/Procedures:: Ankle plate/pin - hdwe removed Social & Family History - Family History Family Medical History: No Pertinent Family History Cardiac: Reports: [place] - Caffeine Use Caffeine Use: Reports: Soda Caffeine Use Comment: occasional soda ED ROS GENERAL - Review of Systems Review Of Systems: See Below Constitutional: Reports: No Symptoms HEENT: Reports: No Symptoms Respiratory: Reports: No Symptoms Cardiovascular: Reports: Blood Pressure Problem (Hypotension with a systolic pressure 71) Endocrine: Reports: Fatigue GI/Abdominal: Reports: Abdominal Pain, Decreased Appetite, Nausea, Vomiting : Reports: No Symptoms Musculoskeletal: Reports: No Symptoms Skin: Reports: No Symptoms Neurological: Reports: No Symptoms Psychiatric: Reports: No Symptoms Hematologic/Lymphatic: Reports: No Symptoms Immunologic: Reports: No Symptoms ED EXAM, GENERAL - Physical Exam Exam: See Below Exam Limited By: No Limitations General Appearance: Alert, Anxious, Mild Distress Eye Exam: Bilateral Eye: EOMI, PERRL, Other (Scleral icterus) Throat/Mouth: Normal Voice, No Airway Compromise, Other (Dry mucous membranes) Head: Atraumatic, Normocephalic Neck: Normal Inspection, Supple Respiratory/Chest: No Respiratory Distress, Lungs Clear, Normal Breath Sounds Cardiovascular: Tachycardia, Other (Weak pulses) Peripheral Pulses: 1+: Radial (L), Radial (R) GI/Abdominal: Soft, Tender (Mild diffuse tenderness), Abnormal Bowel Sounds (Diminished bowel sounds). No: Guarding, Rigid, Rebound Extremities: Normal Inspection, No Pedal Edema, Normal Capillary Refill Neurological: Alert, Oriented, Normal Cognition, No Motor/Sensory Deficits Psychiatric: Normal Affect, Anxious Skin Exam: Jaundice Lymphatic: No Adenopathy #1 Interpretation EKG Date: 08/01/20 Time: 19:18 Rhythm: NSR Rate (Beats/Min): 123 [place]: Normal QRS: Normal (Left anterior fascicular block) ST-T: Other (Nonspecific ST-T changes with flattening of the T wave in the inferior leads) QT: Prolonged Comparison: Change From Previous EKG Course - Vital Signs Last Recorded V/S: Last Vital Signs Temp 36.2 C 08/01/20 19:49 Pulse 125 H 08/01/20 19:49 Resp 22 H 08/01/20 19:49 BP 74/35 L 08/01/20 19:49 Pulse Ox 96 08/01/20 19:49 - Orders/Labs/Meds Orders: Active Orders 24 hr Category Date Time Status CORONAVIRUS COVID-19 RAPID [MOLEC] Stat Lab 08/01/20 20:37 Received CULTURE BLOOD [BC] Urgent Lab 08/01/20 20:50 Ordered CULTURE BLOOD [BC] Urgent Lab 08/01/20 20:50 Ordered Cefepime [Maxipime] 2 gm Med 08/01/20 20:50 Active Sodium Chloride 0.9% [Normal Saline] 50 ml IV ONETIME Lactated Ringers [Ringers, Lactated] 1,000 ml Med 08/01/20 19:30 Active IV ASDIRECTED Lactated Ringers [Ringers, Lactated] 1,000 ml Med 08/01/20 20:45 Active IV ASDIRECTED Magnesium Sulfate/Water [Magnesium Sulfate in Water 2 Med 08/01/20 20:26 Active GM/50 ML] 2 gm Premix Bag 1 bag IV ONETIME Norepinephrine [Levophed] 4 mg Med 08/01/20 20:45 Active Dextrose 5% in Water 246 ml IV TITRATE Potassium Chloride [KCL in Water 20 MEQ/100 ML] 20 meq Med 08/01/20 20:41 Active Premix Bag 1 bag IV ONETIME Sodium Chloride 0.9% [Saline Flush] Med 08/01/20 19:17 Active 10 ml FLUSH ASDIRECTED PRN Blood Culture x2 Reflex Set [OM.PC] Urgent Oth 08/01/20 20:50 Ordered Isolation [COMM] Stat Oth 08/01/20 20:37 Ordered Saline Lock Insert [OM.PC] Routine Oth 08/01/20 19:17 Ordered Medication Orders Lactated Ringer's (Ringers, Lactated) 1,000 mls @ 999 mls/hr IV ASDIRECTED BILLY Last Admin: 08/01/20 19:34 Dose: 999 mls/hr Documented by: MARIANNA Magnesium Sulfate 2 gm/ Premix 50 mls @ 25 mls/hr IV ONETIME ONE Stop: 08/01/20 22:25 Last Admin: 08/01/20 20:44 Dose: 25 mls/hr Documented by: MARIANNA Lactated Ringer's (Ringers, Lactated) 1,000 mls @ 999 mls/hr IV ASDIRECTED BILLY Potassium Chloride 20 meq/ (Premix) 100 mls @ 50 mls/hr IV ONETIME ONE Stop: 08/01/20 22:40 Norepinephrine Bitartrate 4 mg (/ Dextrose/Water) 250 mls @ 7.5 mls/hr IV TITRATE BILLY; Protocol Cefepime HCl 2 gm/ Sodium (Chloride) 50 mls @ 100 mls/hr IV ONETIME ONE Stop: 08/01/20 21:19 Sodium Chloride (Sodium Chloride 0.9% 10 Ml Syringe) 10 ml FLUSH ASDIRECTED PRN PRN Reason: Keep Vein Open Last Admin: 08/01/20 19:54 Dose: 10 ml Documented by: MARIANNA Labs: Laboratory Tests 08/01/20 08/01/20 08/01/20 Range/Units 19:10 19:10 19:10 WBC 4.7 (4.5-11.0) K/uL RBC 4.21 (3.30-5.50) M/uL Hgb 14.9 D (12.0-15.0) g/dL Hct 43.8 (36.0-48.0) % MCV 104 H (80-98) fL MCH 35 H (27-31) pg MCHC 34 (32-36) % Plt Count 130 L (150-400) K/uL Neut % (Auto) 83.6 H (36-66) % Lymph % (Auto) 14.5 L (24-44) % [place] % (Auto) 1.3 L (2-6) % Eos % (Auto) 0.2 L (2-4) % Baso % (Auto) 0.4 (0-1) % Sodium 134 L (140-148) mmol/L Potassium 2.5 L* (3.6-5.2) mmol/L Chloride 91 L (100-108) mmol/L Carbon Dioxide 23 (21-32) mmol/L Anion Gap 22.5 H (5.0-14.0) mmol/L BUN 7 D (7-18) mg/dL Creatinine 2.2 H D (0.6-1.0) mg/dL Est Cr Clr Drug Dosing 28.45 mL/min Estimated GFR (MDRD) 24 L (>60) Glucose 76 (74-106) mg/dL Lactic Acid (0.4-2.0) mmol/L Calcium 9.1 (8.5-10.1) mg/dL Magnesium 0.9 L D (1.8-2.4) mg/dL Total Bilirubin 5.3 H D (0.2-1.0) mg/dL AST 132 H (15-37) U/L ALT 54 (12-78) U/L Alkaline Phosphatase 268 H (46-116) U/L Ammonia (11-32) umol/L Total Protein 7.2 (6.4-8.2) g/dL Albumin 2.7 L (3.4-5.0) g/dL Globulin 4.5 H (2.3-3.5) g/dL Albumin/Globulin Ratio 0.6 L (1.2-2.2) Lipase 151 (73-393) U/L Ethyl Alcohol < 3 mg/dL 08/01/20 08/01/20 Range/Units 19:10 20:38 WBC (4.5-11.0) K/uL RBC (3.30-5.50) M/uL Hgb (12.0-15.0) g/dL Hct (36.0-48.0) % MCV (80-98) fL MCH (27-31) pg MCHC (32-36) % Plt Count (150-400) K/uL Neut % (Auto) (36-66) % Lymph % (Auto) (24-44) % [place] % (Auto) (2-6) % Eos % (Auto) (2-4) % Baso % (Auto) (0-1) % Sodium (140-148) mmol/L Potassium (3.6-5.2) mmol/L Chloride (100-108) mmol/L Carbon Dioxide (21-32) mmol/L Anion Gap (5.0-14.0) mmol/L BUN (7-18) mg/dL Creatinine (0.6-1.0) mg/dL Est Cr Clr Drug Dosing mL/min Estimated GFR (MDRD) (>60) Glucose (74-106) mg/dL Lactic Acid 8.8 H (0.4-2.0) mmol/L Calcium (8.5-10.1) mg/dL Magnesium (1.8-2.4) mg/dL Total Bilirubin (0.2-1.0) mg/dL AST (15-37) U/L ALT (12-78) U/L Alkaline Phosphatase (46-116) U/L Ammonia 36 H (11-32) umol/L Total Protein (6.4-8.2) g/dL Albumin (3.4-5.0) g/dL Globulin (2.3-3.5) g/dL Albumin/Globulin Ratio (1.2-2.2) Lipase (73-393) U/L Ethyl Alcohol mg/dL Meds: Medications Generic Name Dose Route Start Last Admin Trade Name Freq PRN Reason Stop Dose Admin Lactated Ringer's 1,000 mls @ 999 mls/hr 08/01/20 19:30 08/01/20 19:34 Ringers, Lactated IV 999 mls/hr ASDIRECTED BILLY Administration Magnesium Sulfate 2 gm/ Premix 50 mls @ 25 mls/hr 08/01/20 20:26 08/01/20 20:44 IV 08/01/20 22:25 25 mls/hr ONETIME ONE Administration Lactated Ringer's 1,000 mls @ 999 mls/hr 08/01/20 20:45 Ringers, Lactated IV ASDIRECTED BILLY Potassium Chloride 20 meq/ 100 mls @ 50 mls/hr 08/01/20 20:41 Premix IV 08/01/20 22:40 ONETIME ONE Norepinephrine Bitartrate 4 mg 250 mls @ 7.5 mls/hr 08/01/20 20:45 / Dextrose/Water IV TITRATE BILLY Protocol 2 MCG/MIN Cefepime HCl 2 gm/ Sodium 50 mls @ 100 mls/hr 08/01/20 20:50 Chloride IV 08/01/20 21:19 ONETIME ONE Sodium Chloride 10 ml 08/01/20 19:17 08/01/20 19:54 Sodium Chloride 0.9% 10 Ml Syringe FLUSH 10 ml ASDIRECTED PRN Administration Keep Vein Open Discontinued Medications Generic Name Dose Route Start Last Admin Trade Name Freq PRN Reason Stop Dose Admin Potassium Chloride 20 meq/ 112 mls @ 50 mls/hr 08/01/20 20:30 Lidocaine HCl 2 ml/ Sodium IV Chloride Q2H BILLY Lidocaine HCl 2 ml 08/01/20 20:43 Lidocaine 1% 5 Ml Sdv INJECT 08/01/20 20:44 ONETIME ONE Ondansetron HCl 8 mg 08/01/20 19:25 08/01/20 19:34 Ondansetron 4 Mg/2 Ml Sdv IVPUSH 08/01/20 19:26 8 mg ONETIME ONE Administration - Re-Assessments/Exams Free Text/Narrative Re-Assessment/Exam: 08/01/20 20:30 The patient presents hypotensive with a pressure of 78/39. We initiated hydration with lactated Ringer's 1 L bolus. Blood cultures were obtained as well as labs. Urinalysis was ordered but the patient has not produced much urine in the last several days. She appears quite jaundiced, tachycardic, and a little slow to respond likely due to the hypotension. Labs were obtained including a CBC showing a hemoglobin of 14.9 with a hematocrit of 43.8. Her leukocyte count is 4.7 and platelet count of 130,000. Comprehensive metabolic panel shows a sodium 134 with a potassium of 2.5, chloride of 91, bicarb of 23, BUN of 7 with a creatinine of 2.2 and a glucose of 76. The patient's magnesium is 0.9. Her ammonia is 36. Her total bili is 5.3. Her ethanol is less than 3. We initiated a second liter of lactated Ringer's as well as potassium chloride rider 20 mEq and magnesium sulfate 2 g IV. We also initiated cefepime 2 g IV for undifferentiated sepsis. Venous lactate is still pending. The patient has stage IV cirrhosis with ascites and has had gastric bypass with all the deficiencies associated with that including hypomagnesemia, vitamin D deficiency, vitamin B-12 deficiency, and iron absorption deficiency. Despite this she normally has pressures of the 118 over 60s. I am concerned that she has hepatorenal syndrome and is going into fulminant failure. With that we initiated Levophed. Given the patient's lack of fluid response to her hypotension and the lack of beds at our facility, we will initiate transfer the patient to [facility]. I discussed the case with Dr. Parada, produce department supervisor in the ICU who accepts the patient in transfer to [facility]. Transfer her by air care as she is quite tenuous at this time. Patient and family are in agreement with this plan. 08/01/20 21:11 patient's venous lactic acid is 8.8 consistent with sepsis. Departure - Departure Time of Disposition: 21:13 Disposition: DC/Tfer to Acute Hospital 02 Condition: Critical Clinical Impression: Severe sepsis, Hepatorenal syndrome, Alcoholic cirrhosis of liver with ascites Hypotension Qualifiers: Hypotension type: unspecified hypotension type Qualified Code(s): I95.9 - Hypotension, unspecified - Discharge Information Referrals: PCP,None [Primary Care Provider] - Forms: ED Department Discharge Sepsis Event Note (ED) - Evaluation Current Stage of Sepsis: Septic Shock Possible Source of Sepsis: Unknown - Focused Exam Sepsis Event Note Statement: Focused Sepsis Exam Completed Vital Signs: Vital Signs Temp Pulse Resp BP Pulse Ox 08/01/20 19:49 36.2 C 125 H 22 H 74/35 L 96 08/01/20 19:36 36.2 C 125 H 22 H 74/35 L 96 08/01/20 19:29 125 H 22 H 74/35 L 90 L 08/01/20 19:14 124 H 22 H 71/37 L 86 L 08/01/20 19:12 148 H 57/40 L 93 L 08/01/20 19:05 72/39 L 08/01/20 19:03 36.2 C 62 18 54/39 L 96 Respiratory Effort Without Exertion: Other (see below) (Mild tachypnea) Heart Sounds: Other (see below) (Tachycardia) Capillary Refill, Detail: Greater than (>) 2 Seconds Pulse Description: 1+ [place] Peripheral Pulse Location: Radial Date Exam was Performed: 08/01/20 Time Exam was Performed: 20:35 - Bedside Monitoring Bedside Ultrasound Performed: No Passive Leg Raise/Fluid Bolus: Not Fluid Responsive Date Bedside Monitoring was Performed: 08/01/20 Time Bedside Monitoring was Performed: 21:13 - Problem List & Annotations (1) Alcoholic cirrhosis of liver with ascites SNOMED Code(s): 857243059, 491212805 Code(s): K70.31 - ALCOHOLIC CIRRHOSIS OF LIVER WITH ASCITES Status: Chronic Priority: High Current Visit: Yes (2) Bariatric surgery status SNOMED Code(s): 340248243, 447258407, 235015007 Code(s): Z98.84 - BARIATRIC SURGERY STATUS Status: Chronic Current Visit: No (3) Hepatorenal syndrome SNOMED Code(s): 71721685 Code(s): K76.7 - HEPATORENAL SYNDROME Status: Acute Priority: High Current Visit: Yes (4) Hypotension SNOMED Code(s): 61561411 Code(s): I95.9 - HYPOTENSION, UNSPECIFIED Status: Acute Priority: High Current Visit: Yes Qualifiers: Hypotension type: unspecified hypotension type Qualified Code(s): I95.9 - Hypotension, unspecified (5) Severe sepsis SNOMED Code(s): 36797160 Code(s): A41.9 - SEPSIS, UNSPECIFIED ORGANISM; R65.20 - SEVERE SEPSIS WITHOUT SEPTIC SHOCK Status: Acute Priority: High Current Visit: Yes - Problem List Review Problem List Initiated/Reviewed/Updated: Yes - My Orders Last 24 Hours: My Active Orders 08/01/20 19:17 Sodium Chloride 0.9% [Saline Flush] 10 ml FLUSH ASDIRECTED PRN Saline Lock Insert [OM.PC] Routine 08/01/20 19:30 Lactated Ringers [Ringers, Lactated] 1,000 ml IV ASDIRECTED 08/01/20 20:26 Magnesium Sulfate/Water [Magnesium Sulfate in Water 2 GM/50 ML] 2 gm Premix Bag 1 bag IV ONETIME 08/01/20 20:37 CORONAVIRUS COVID-19 RAPID [MOLEC] Stat Isolation [COMM] Stat 08/01/20 20:41 Potassium Chloride [KCL in Water 20 MEQ/100 ML] 20 meq Premix Bag 1 bag IV ONETIME 08/01/20 20:45 Lactated Ringers [Ringers, Lactated] 1,000 ml IV ASDIRECTED Norepinephrine [Levophed] 4 mg Dextrose 5% in Water 246 ml IV TITRATE 08/01/20 20:50 CULTURE BLOOD [BC] Urgent CULTURE BLOOD [BC] Urgent Cefepime [Maxipime] 2 gm Sodium Chloride 0.9% [Normal Saline] 50 ml IV ONETIME Blood Culture x2 Reflex Set [OM.PC] Urgent - Assessment/Plan Last 24 Hours: My Active Orders 08/01/20 19:17 Sodium Chloride 0.9% [Saline Flush] 10 ml FLUSH ASDIRECTED PRN Saline Lock Insert [OM.PC] Routine 08/01/20 19:30 Lactated Ringers [Ringers, Lactated] 1,000 ml IV ASDIRECTED 08/01/20 20:26 Magnesium Sulfate/Water [Magnesium Sulfate in Water 2 GM/50 ML] 2 gm Premix Bag 1 bag IV ONETIME 08/01/20 20:37 CORONAVIRUS COVID-19 RAPID [MOLEC] Stat Isolation [COMM] Stat 08/01/20 20:41 Potassium Chloride [KCL in Water 20 MEQ/100 ML] 20 meq Premix Bag 1 bag IV ONETIME 08/01/20 20:45 Lactated Ringers [Ringers, Lactated] 1,000 ml IV ASDIRECTED Norepinephrine [Levophed] 4 mg Dextrose 5% in Water 246 ml IV TITRATE 08/01/20 20:50 CULTURE BLOOD [BC] Urgent CULTURE BLOOD [BC] Urgent Cefepime [Maxipime] 2 gm Sodium Chloride 0.9% [Normal Saline] 50 ml IV ONETIME Blood Culture x2 Reflex Set [OM.PC] Urgent
[2020-08-01] MEDS ORDERED: Ondansetron 4 MG/2 ML SDV IVPUSH ONE (19:25)
[2020-08-01] MEDS: Lactated Ringers 1,000 ML IV SCH ×2 (19:34→21:24)
[2020-08-01] MEDS ORDERED: Magnesium Sulfate/Water 2 GM in Premix Bag 1 BAG IV ONE (20:26)
[2020-08-01] MEDS ORDERED: Potassium Chloride 20 MEQ, Lidocaine 1% 2 ML in Sodium Chloride 0.9% 100 ML IV SCH (20:30)
[2020-08-01] MEDS ORDERED: Potassium Chloride 20 MEQ in Premix Bag 1 BAG IV ONE (20:41)
[2020-08-01] MEDS ORDERED: Norepinephrine 4 MG in Dextrose 5% in Water 246 ML IV SCH ×2 (20:45)
[2020-08-01] MEDS ORDERED: Lactated Ringers 1,000 ML IV SCH (20:45)
[2020-08-01] MEDS ORDERED: Cefepime 2 GM in Sodium Chloride 0.9% 50 ML IV ONE (20:50)
[2020-08-01] MEDS ORDERED: Sodium Chloride 0.9% 50 ML ONE (21:09)
[2020-08-01] MEDS: Cefepime 1 GM Vial ONE (21:24)
[2020-08-01 22:19] VITALS: BP 94/55; PULSE 111
[2020-08-02] MEDS: Cefepime 1 GM Vial ONE (08:45)
== END 2020-08-01 22:31 ==
LOC: JP.ED 18:41
DX: A41.9 Sepsis, unspecified organism (principal); R65.20 Severe sepsis without septic shock; K70.31 Alcoholic cirrhosis of liver with ascites; K76.7 Hepatorenal syndrome; I10 Essential (primary) hypertension
CPT/HCPCS: 36415; 80053; 80307; 82140; 83605; 83690; 83735; 85025; 87040; 87077; 87186; 93005; 96365; 96366; 96368; 96375; 99285-25; J0692; J2405; J3475; J3480; J7060; J7120; U0002

== ENCOUNTER 2020-10-04 11:21 | Emergency (ER) | payer BC ==
[2020-10-04] MEDS ORDERED: Lactated Ringers 1,000 ML IV SCH (12:00)
[2020-10-04] MEDS ORDERED: fentaNYL 100 MCG/2 ML SDV IVPUSH ONE (12:02)
[2020-10-04] MEDS ORDERED: Metoclopramide 10 MG/2 ML SDV IVPUSH ONE (12:03)
--- NOTE | 2020-10-04 12:03 | EDM.PDOC ---
ED HPI GENERAL MEDICAL PROBLEM - General Chief Complaint: Gastrointestinal Problem Stated Complaint: STOMACH ISSUES/NAUSEA Time Seen by Provider: 10/04/20 11:49 Source of Information: Reports: Patient, RN History Limitations: Reports: No Limitations - History of Present Illness INITIAL COMMENTS - FREE TEXT/NARRATIVE: Ewelina is a 45 year old female with significant medical history for cirrhosis of liver, liver disease, ascites, Gastric bypass, and recent history of UTI sepsis and transfer to [place] in July. Ewelina has been evaluated in clinic recently for low potassium levels. Ewelina does not recall having Magnesium checked over the last months. Ewelina has been doing fairly well since hospitalization until Wednesday afternoon with vague abdominal discomfort across upper abdomen with nausea (unable to vomit due to surgical history), decrease appetite, decreased urine output and no BM since Wednesday or Wednesday (not abnormal). Ewelina's family become concerned about her symptoms due to previous ER visit resulted in diagnosis of UTI, sepsis and transfer with symptoms of confusion (tachycardia). Ewelina's grandmother was recently placed on hospice with days to week remaining of life and family insisted upon medical evaluation for Ewelina. Ewelina called clinic to update PCP regarding her symptoms and recommended ER presentation and evaluation today. - Related Data Allergies Allergy/AdvReac Type Severity Reaction Status Date / Time doxycycline Allergy Rash Verified 10/04/20 11:36 erythromycin base Allergy Rash Verified 10/04/20 11:36 procaine [From Novocain] Allergy Rash Verified 10/04/20 11:36 Home Meds: Home Meds Multivitamin [Multi-Vitamin Daily] 1 tab PO DAILY 12/02/15 [History] Gabapentin [Neurontin] 600 mg PO TID 07/13/18 [History] Albuterol Sulfate [Proair Respiclick] 1 - 2 puff IH Q4HR PRN 08/10/18 [History] Cyanocobalamin (Vitamin B-12) [Vitamin B-12] 1,000 mcg SL DAILY 08/10/18 [History] Magnesium 400 mg PO BID 11/23/18 [History] Potassium Chloride 20 meq PO BID 11/23/18 [History] Citalopram [Citalopram HBr] 20 mg PO DAILY #30 tablet 04/14/19 [Rx] Furosemide [Lasix] 20 mg PO DAILY #30 tablet 04/14/19 [Rx] Spironolactone [Aldactone] 25 mg PO BID #60 tablet 04/14/19 [Rx] Past Medical History HEENT History: Reports: None Cardiovascular History: Reports: Hypertension Respiratory History: Reports: Asthma Gastrointestinal History: Reports: GERD, Other (See Below) Other Gastrointestinal History: RNY 2002 Genitourinary History: Reports: None Other Genitourinary History: 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 fistula 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 [employer]ODUCER History: Reports: Dysfunctional Uterine Bleeding, Musculoskeletal History: Reports: Fracture Psychiatric History: Reports: Addiction, Anxiety, Depression Endocrine/Metabolic History: Reports: Hypothyroidism, Vitamin D Deficiency Hematologic History: Reports: Anemia, B12 Deficiency, Blood Transfusion(s), Iron Deficiency, Other (See Below) Other Hematologic History: vitamin D def - Infectious Disease History Infectious Disease History: Reports: Chicken Pox, Measles - Past Surgical History HEENT Surgical History: Reports: Oral Surgery Respiratory Surgical History: Reports: None GI Surgical History: Reports: Bariatric Procedure, Cholecystectomy, Colonoscopy, EGD Female Surgical History: Reports: Section, Hysterectomy, Tubal Ligation Endocrine Surgical History: Reports: None Musculoskeletal Surgical History: Reports: None, Other (See Below) Other Musculoskeletal Surgeries/Procedures:: Ankle plate/pin - hdwe removed Social & Family History - Family History Family Medical History: No Pertinent Family History Cardiac: Reports: ME - Tobacco Use Tobacco Use Status *Q: Current Some Day Tobacco User Years of Tobacco use: 30 Packs/Tins Daily: 0.1 - Caffeine Use Caffeine Use: Reports: Soda Caffeine Use Comment: occasional soda ED ROS GENERAL - Review of Systems Review Of Systems: Comprehensive ROS is negative, except as noted in HPI. ED EXAM, GI/ABD - Physical Exam Exam: See Below Exam Limited By: No Limitations General Appearance: Alert, WD/WN, Other (pale) Eyes: Bilateral: Normal Appearance Ears: Normal External Exam, Hearing Grossly Normal Nose: Normal Inspection Throat/Mouth: Normal Voice, No Airway Compromise Head: Atraumatic Neck: Supple, Full Range of Motion Respiratory/Chest: No Respiratory Distress, Lungs Clear, Normal Breath Sounds, No Accessory Muscle Use, Chest Non-Tender Cardiovascular: Normal Peripheral Pulses, Regular Rate, Rhythm GI/Abdominal Exam: Normal Bowel Sounds, Soft, Tender (diffuse across upper abdomen ). No: Distended, Guarding, Rigid, Rebound Back Exam: No: CVA Tenderness (R), CVA Tenderness (L) Extremities: Normal Inspection, Normal Range of Motion Neurological: Alert, Oriented, CN II-XII Intact, Normal Cognition, Normal Gait, No Motor/Sensory Deficits Psychiatric: Normal Affect, Normal Mood Skin Exam: Warm, Dry, Intact Course - Vital Signs Last Recorded V/S: Last Vital Signs Temp 36.5 C 10/04/20 11:46 Pulse 75 10/04/20 15:30 Resp 16 10/04/20 11:46 BP 128/77 10/04/20 15:30 Pulse Ox 99 10/04/20 15:30 - Orders/Labs/Meds Orders: Active Orders 24 hr Category Date Time Status Vital Signs [RC] Q1H Care 10/04/20 11:50 Active CULTURE BLOOD [BC] Urgent Lab 10/04/20 12:00 Received CULTURE BLOOD [BC] Urgent Lab 10/04/20 12:10 Received CULTURE URINE [RM] Stat Lab 10/04/20 13:07 Received Lactated Ringers [Ringers, Lactated] 1,000 ml Med 10/04/20 12:00 Active IV ASDIRECTED Sodium Chloride 0.9% [Normal Saline] 1,000 ml Med 10/04/20 13:30 Active IV ASDIRECTED Blood Culture x2 Reflex Set [OM.PC] Urgent Oth 10/04/20 11:50 Ordered Medication Orders Lactated Ringer's (Ringers, Lactated) 1,000 mls @ 1,000 mls/hr IV ASDIRECTED BILLY Last Admin: 10/04/20 12:21 Dose: 1,000 mls/hr Documented by: AMIE Sodium Chloride (Normal Saline) 1,000 mls @ 500 mls/hr IV ASDIRECTED BILLY Last Admin: 10/04/20 13:22 Dose: 500 mls/hr Documented by: AMIE Labs: Laboratory Tests 10/04/20 10/04/20 10/04/20 Range/Units 12:00 12:00 12:00 WBC 2.4 L (4.5-11.0) K/uL RBC 3.40 (3.30-5.50) M/uL Hgb 11.8 L D (12.0-15.0) g/dL Hct 34.3 L (36.0-48.0) % MCV 101 H (80-98) fL MCH 35 H (27-31) pg MCHC 34 (32-36) % Plt Count 105 L (150-400) K/uL Neut % (Auto) 47.5 (36-66) % Lymph % (Auto) 36.0 (24-44) % [place] % (Auto) 13.6 H (2-6) % Eos % (Auto) 1.7 L (2-4) % Baso % (Auto) 1.2 H (0-1) % Sodium 133 L (140-148) mmol/L Potassium 3.0 L (3.6-5.2) mmol/L Chloride 95 L (100-108) mmol/L Carbon Dioxide 31 (21-32) mmol/L Anion Gap 10.0 (5.0-14.0) mmol/L BUN 7 (7-18) mg/dL Creatinine 1.2 H (0.6-1.0) mg/dL Est Cr Clr Drug Dosing 50.05 mL/min Estimated GFR (MDRD) 48 L (>60) Glucose 89 (74-106) mg/dL Lactic Acid 1.2 (0.4-2.0) mmol/L Calcium 8.9 (8.5-10.1) mg/dL Magnesium (1.8-2.4) mg/dL Iron (50-170) ug/dL TIBC (250-450) ug/dl % Saturation (20-55) % Ferritin (8-388) ng/ml Total Bilirubin 1.9 H D (0.2-1.0) mg/dL AST 80 H (15-37) U/L ALT 42 (12-78) U/L Alkaline Phosphatase 157 H (46-116) U/L C-Reactive Protein 0.19 (0.0-0.3) mg/dL Total Protein 7.5 (6.4-8.2) g/dL Albumin 2.9 L (3.4-5.0) g/dL Globulin 4.6 H (2.3-3.5) g/dL Albumin/Globulin Ratio 0.6 L (1.2-2.2) Procalcitonin ng/mL Urine Color (YELLOW) Urine Appearance (CLEAR) Urine pH (5.0-8.0) Ur Specific [place] (1.008-1.030) Urine Protein (NEGATIVE) mg/dL Urine Glucose (UA) (NEGATIVE) mg/dL Urine Ketones (NEGATIVE) mg/dL Urine Occult Blood (NEGATIVE) Urine Nitrite (NEGATIVE) Urine Bilirubin (NEGATIVE) Urine Urobilinogen (0.2-1.0) EU/dL Ur Leukocyte Esterase (NEGATIVE) Urine RBC (0-5) Urine WBC (0-5) Ur Epithelial Cells Amorphous Sediment Urine Bacteria Urine Mucus SARS CoV-2 RNA Rapid EDGAR 10/04/20 10/04/20 10/04/20 Range/Units 12:00 12:00 12:11 WBC (4.5-11.0) K/uL RBC (3.30-5.50) M/uL Hgb (12.0-15.0) g/dL Hct (36.0-48.0) % MCV (80-98) fL MCH (27-31) pg MCHC (32-36) % Plt Count (150-400) K/uL Neut % (Auto) (36-66) % Lymph % (Auto) (24-44) % [place] % (Auto) (2-6) % Eos % (Auto) (2-4) % Baso % (Auto) (0-1) % Sodium (140-148) mmol/L Potassium (3.6-5.2) mmol/L Chloride (100-108) mmol/L Carbon Dioxide (21-32) mmol/L Anion Gap (5.0-14.0) mmol/L BUN (7-18) mg/dL Creatinine (0.6-1.0) mg/dL Est Cr Clr Drug Dosing mL/min Estimated GFR (MDRD) (>60) Glucose (74-106) mg/dL Lactic Acid (0.4-2.0) mmol/L Calcium (8.5-10.1) mg/dL Magnesium 1.6 L D (1.8-2.4) mg/dL Iron 54 (50-170) ug/dL TIBC 175 L (250-450) ug/dl % Saturation 31 (20-55) % Ferritin (8-388) ng/ml Total Bilirubin (0.2-1.0) mg/dL AST (15-37) U/L ALT (12-78) U/L Alkaline Phosphatase (46-116) U/L C-Reactive Protein (0.0-0.3) mg/dL Total Protein (6.4-8.2) g/dL Albumin (3.4-5.0) g/dL Globulin (2.3-3.5) g/dL Albumin/Globulin Ratio (1.2-2.2) Procalcitonin 0.06 ng/mL Urine Color (YELLOW) Urine Appearance (CLEAR) Urine pH (5.0-8.0) Ur Specific [place] (1.008-1.030) Urine Protein (NEGATIVE) mg/dL Urine Glucose (UA) (NEGATIVE) mg/dL Urine Ketones (NEGATIVE) mg/dL Urine Occult Blood (NEGATIVE) Urine Nitrite (NEGATIVE) Urine Bilirubin (NEGATIVE) Urine Urobilinogen (0.2-1.0) EU/dL Ur Leukocyte Esterase (NEGATIVE) Urine RBC (0-5) Urine WBC (0-5) Ur Epithelial Cells Amorphous Sediment Urine Bacteria Urine Mucus SARS CoV-2 RNA Rapid EDGAR 10/04/20 10/04/20 10/04/20 Range/Units 12:11 13:07 14:25 WBC (4.5-11.0) K/uL RBC (3.30-5.50) M/uL Hgb (12.0-15.0) g/dL Hct (36.0-48.0) % MCV (80-98) fL MCH (27-31) pg MCHC (32-36) % Plt Count (150-400) K/uL Neut % (Auto) (36-66) % Lymph % (Auto) (24-44) % [place] % (Auto) (2-6) % Eos % (Auto) (2-4) % Baso % (Auto) (0-1) % Sodium (140-148) mmol/L Potassium (3.6-5.2) mmol/L Chloride (100-108) mmol/L Carbon Dioxide (21-32) mmol/L Anion Gap (5.0-14.0) mmol/L BUN (7-18) mg/dL Creatinine (0.6-1.0) mg/dL Est Cr Clr Drug Dosing mL/min Estimated GFR (MDRD) (>60) Glucose (74-106) mg/dL Lactic Acid (0.4-2.0) mmol/L Calcium (8.5-10.1) mg/dL Magnesium (1.8-2.4) mg/dL Iron (50-170) ug/dL TIBC (250-450) ug/dl % Saturation (20-55) % Ferritin 171 (8-388) ng/ml Total Bilirubin (0.2-1.0) mg/dL AST (15-37) U/L ALT (12-78) U/L Alkaline Phosphatase (46-116) U/L C-Reactive Protein (0.0-0.3) mg/dL Total Protein (6.4-8.2) g/dL Albumin (3.4-5.0) g/dL Globulin (2.3-3.5) g/dL Albumin/Globulin Ratio (1.2-2.2) Procalcitonin ng/mL Urine Color Yellow (YELLOW) Urine Appearance Clear (CLEAR) Urine pH 7.0 (5.0-8.0) Ur Specific [place] 1.015 (1.008-1.030) Urine Protein Negative (NEGATIVE) mg/dL Urine Glucose (UA) Negative (NEGATIVE) mg/dL Urine Ketones Negative (NEGATIVE) mg/dL Urine Occult Blood Negative (NEGATIVE) Urine Nitrite Negative (NEGATIVE) Urine Bilirubin Negative (NEGATIVE) Urine Urobilinogen 1.0 (0.2-1.0) EU/dL Ur Leukocyte Esterase Negative (NEGATIVE) Urine RBC 0-5 (0-5) Urine WBC Not seen (0-5) Ur Epithelial Cells Rare Amorphous Sediment Rare Urine Bacteria Rare Urine Mucus Not seen SARS CoV-2 RNA Rapid EDGAR Negative Meds: Medications Generic Name Dose Route Start Last Admin Trade Name Freq PRN Reason Stop Dose Admin Lactated Ringer's 1,000 mls @ 1,000 mls/hr 10/04/20 12:00 10/04/20 12:21 Ringers, Lactated IV 1,000 mls/hr ASDIRECTED BILLY Administration Sodium Chloride 1,000 mls @ 500 mls/hr 10/04/20 13:30 10/04/20 13:22 Normal Saline IV 500 mls/hr ASDIRECTED BILLY Administration Discontinued Medications Generic Name Dose Route Start Last Admin Trade Name Freq PRN Reason Stop Dose Admin Fentanyl 50 mcg 10/04/20 12:02 10/04/20 12:22 Fentanyl 100 Mcg/2 Ml Sdv IVPUSH 10/04/20 12:03 50 mcg ONETIME ONE Administration Magnesium Sulfate 2 gm/ Premix 50 mls @ 25 mls/hr 10/04/20 13:05 10/04/20 13:22 IV 10/04/20 15:04 25 mls/hr ONETIME ONE Administration Metoclopramide HCl 5 mg 10/04/20 12:03 10/04/20 12:21 Metoclopramide 10 Mg/2 Ml Sdv IVPUSH 10/04/20 12:04 5 mg ONETIME ONE Administration - Re-Assessments/Exams Free Text/Narrative Re-Assessment/Exam: Examination and orders completed. Chart review including recent EKG August 01 noting sinus tachycardia with history of sepsis. HR today normal and BP normal range. Most recent Abdomen pelvis CT reviewed from Apr 2019 Impression: Moderate hepatosplenomegaly with moderate to severe diffuse fatty infiltrate of the liver. Significant abdominal ascites and subcutaneous edema consistent with anasarca. Thickening if transverse colon, unlikely colitis. Subcutaneous fluid collection in left lower abdominal wall within pannus. Previous dave-en-Y gastric bypass and previous cholecystectomy. 10/04/20 12:17 Laboratory tests reviewed with patient, noting low WBC, Mag and Sodium. Viral illness likely COVID testing offered and accepted testing. 2GM Magnesium ordered in addition to second liter of fluid, NS with offer for po fluids. UA pending at this time. Patient denied needed for additional pain management or concerns. 10/04/20 13:20 Reassessment: Symptoms are improved and feeling well enough to be discharged at this time with clinic follow-up next week. Recommended adding oral magnesium at night to help support potassium levels. 10/04/20 15:45 Departure - Departure Time of Disposition: 15:52 Disposition: Home, Self-Care 01 Clinical Impression: Hypomagnesemia, Hypokalemia, Bariatric surgery status, Cirrhosis of liver, Dehydration Abdominal pain Qualifiers: Abdominal location: generalized Qualified Code(s): R10.84 - Generalized abdominal pain - Discharge Information Instructions: Hypomagnesemia, Hypokalemia, Dehydration, Adult, Rehydration, Adult, Cirrhosis, Abdominal Pain, Adult Referrals: Rick James MD [Primary Care Provider] - Forms: ED Department Discharge Additional Instructions: 1. continued current medications at home. 2. Consider Magnesium supplement at night to help support potassium levels. 3. Increase fluid intake due to signs of renal insufficiency due to dehydration. 4. Call clinic on Wednesday for follow-up in clinic after ER visit. 5. Return to ER sooner if concern. change, new worsening symptoms or new concerns. Sepsis Event Note (ED) - Evaluation Sepsis Screening Result: No Definite Risk - Focused Exam Vital Signs: Vital Signs Temp Pulse Resp BP Pulse Ox 10/04/20 15:30 75 128/77 99 10/04/20 14:50 74 116/67 99 10/04/20 13:50 77 115/77 99 10/04/20 11:46 36.5 C 88 16 126/78 99 10/04/20 11:34 36.5 C 88 16 126/78 99 - My Orders Last 24 Hours: My Active Orders 10/04/20 11:50 Vital Signs [RC] Q1H Blood Culture x2 Reflex Set [OM.PC] Urgent 10/04/20 12:00 CULTURE BLOOD [BC] Urgent Lactated Ringers [Ringers, Lactated] 1,000 ml IV ASDIRECTED 10/04/20 12:10 CULTURE BLOOD [BC] Urgent 10/04/20 13:07 CULTURE URINE [RM] Stat 10/04/20 13:30 Sodium Chloride 0.9% [Normal Saline] 1,000 ml IV ASDIRECTED - Assessment/Plan Last 24 Hours: My Active Orders 10/04/20 11:50 Vital Signs [RC] Q1H Blood Culture x2 Reflex Set [OM.PC] Urgent 10/04/20 12:00 CULTURE BLOOD [BC] Urgent Lactated Ringers [Ringers, Lactated] 1,000 ml IV ASDIRECTED 10/04/20 12:10 CULTURE BLOOD [BC] Urgent 10/04/20 13:07 CULTURE URINE [RM] Stat 10/04/20 13:30 Sodium Chloride 0.9% [Normal Saline] 1,000 ml IV ASDIRECTED
[2020-10-04] MEDS ORDERED: Magnesium Sulfate/Water 2 GM in Premix Bag 1 BAG IV ONE (13:05)
[2020-10-04] MEDS ORDERED: Sodium Chloride 0.9% 1,000 ML IV SCH (13:30)
[2020-10-04 15:37] VITALS: BP 128/77; PULSE 75
== END 2020-10-04 16:03 | disposition home or self-care (01) ==
LOC: JP.ED 11:21
DX: K74.60 Unspecified cirrhosis of liver (principal); E86.0 Dehydration; E83.42 Hypomagnesemia; E87.6 Hypokalemia; I10 Essential (primary) hypertension; J45.909 Unspecified asthma, uncomplicated; Z72.0 Tobacco use; Z88.1 Allergy status to other antibiotic agents; Z88.8 Allergy status to other drugs, medicaments and biological substances; Z79.899 Other long term (current) drug therapy; Z98.84 Bariatric surgery status; Z20.822 Contact with and (suspected) exposure to COVID-19
CPT/HCPCS: 36415; 80053; 81001; 82728; 83550; 83605; 83735; 84145; 85025; 86140; 87040; 87086; 87088; 87186; 87635; 96365; 96366; 96375; 99284; J2765; J3010; J3475; J7030; J7120; U0002

== ENCOUNTER 2020-10-12 20:14 | Emergency (ER) | payer BC ==
[2020-10-12] MEDS ORDERED: Ondansetron 4 MG Tab.DIS PO ONE (21:03)
[2020-10-12] MEDS ORDERED: Polyethylene Glycol 3350 Powder 17 GM Packet PO ONE (21:03)
--- NOTE | 2020-10-12 21:15 | EDM.PDOC ---
ED HPI GENERAL MEDICAL PROBLEM - General Chief Complaint: General Stated Complaint: LETHARGIC Time Seen by Provider: 10/12/20 20:55 Source of Information: Reports: Patient, Old Records History Limitations: Reports: No Limitations - History of Present Illness INITIAL COMMENTS - FREE TEXT/NARRATIVE: 45 yo female with multiple chronic medical conditions was seen here about a week ago. She was advised to follow up with Dr. James in the clinic shortly after that ER visit, but was never able to obtain an appt. Since then she has been feeling lethargy, anorexia, irregular BM's, and some mild nausea. No fever. Occasional cough. No SOB. Has been taking the magnesium she was told to take during her last ER visit. Is just finishing MacroBid for a UTI, never had any sx's of UTI even before starting this. Onset: Gradual Onset Date: 10/06/20 Duration: Week(s): (1), Getting Worse Location: Reports: Generalized (malaise, lethargy, light-headness with standing) Quality: Reports: Other (pain is not an issue) Improves with: Reports: None Worsens with: Reports: Other (time) Context: Reports: Other (See HPI) Associated Symptoms: Reports: Cough, Loss of Appetite, Malaise, Nausea/Vomiting (no vomiting), Weakness (generalized). Denies: Fever/Chills, Headaches, Rash, Shortness of Breath Treatments PATROL CONDUCTOR: Reports: Other (see below) (none) - Related Data Allergies Allergy/AdvReac Type Severity Reaction Status Date / Time doxycycline Allergy Rash Verified 10/12/20 21:30 erythromycin base Allergy Rash Verified 10/12/20 21:30 procaine [From Novocain] Allergy Rash Verified 10/12/20 21:30 Home Meds: Home Meds Multivitamin [Multi-Vitamin Daily] 1 tab PO DAILY 12/02/15 [History] Gabapentin [Neurontin] 600 mg PO TID 07/13/18 [History] Albuterol Sulfate [Proair Respiclick] 1 - 2 puff IH Q4HR PRN 08/10/18 [History] Cyanocobalamin (Vitamin B-12) [Vitamin B-12] 1,000 mcg SL DAILY 08/10/18 [History] Magnesium 400 mg PO BID 11/23/18 [History] Potassium Chloride 20 meq PO BID 11/23/18 [History] Citalopram [Citalopram HBr] 20 mg PO DAILY #30 tablet 04/14/19 [Rx] Furosemide [Lasix] 20 mg PO DAILY #30 tablet 04/14/19 [Rx] Spironolactone [Aldactone] 25 mg PO BID #60 tablet 04/14/19 [Rx] Past Medical History HEENT History: Reports: None Cardiovascular History: Reports: Hypertension Respiratory History: Reports: Asthma Gastrointestinal History: Reports: GERD, Other (See Below) Other Gastrointestinal History: RNY 2002 Genitourinary History: Reports: None Other Genitourinary History: 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 fistula [employer]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: Reports: Dysfunctional Uterine Bleeding, Musculoskeletal History: Reports: Fracture Psychiatric History: Reports: Addiction, Anxiety, Depression Endocrine/Metabolic History: Reports: Hypothyroidism, Vitamin D Deficiency Hematologic History: Reports: Anemia, B12 Deficiency, Blood Transfusion(s), Iron Deficiency, Other (See Below) Other Hematologic History: vitamin D def - Infectious Disease History Infectious Disease History: Reports: Chicken Pox, Measles - Past Surgical History HEENT Surgical History: Reports: Oral Surgery Respiratory Surgical History: Reports: None GI Surgical History: Reports: Bariatric Procedure, Cholecystectomy, Colonoscopy, EGD Female Surgical History: Reports: Section, Hysterectomy, Tubal Ligation Endocrine Surgical History: Reports: None Musculoskeletal Surgical History: Reports: None, Other (See Below) Other Musculoskeletal Surgeries/Procedures:: Ankle plate/pin - hdwe removed Social & Family History - Family History Family Medical History: No Pertinent Family History Cardiac: Reports: GA - Caffeine Use Caffeine Use: Reports: Soda Caffeine Use Comment: occasional soda ED ROS GENERAL - Review of Systems Review Of Systems: See Below Constitutional: Reports: Malaise, Weakness, Decreased Appetite. Denies: Fever, Chills, Diaphoresis HEENT: Reports: Ear Pain (mild, left). Denies: Rhinitis, Throat Pain Respiratory: Reports: Cough, Sputum (minimal). Denies: Shortness of Breath, Wheezing, Pleuritic Chest Pain, Hemoptysis Cardiovascular: Reports: Lightheadedness Endocrine: Reports: Fatigue GI/Abdominal: Reports: Decreased Appetite, Nausea. Denies: Black Stool, Bloody Stool, Vomiting : Reports: No Symptoms Musculoskeletal: Reports: No Symptoms Skin: Reports: No Symptoms Neurological: Reports: No Symptoms Psychiatric: Reports: No Symptoms ED EXAM, GENERAL - Physical Exam Exam: See Below Exam Limited By: No Limitations General Appearance: Alert, WD/WN, No Apparent Distress Eye Exam: Bilateral Eye: Other (scleral icterus) Ears: Normal External Exam, Normal Canal, Hearing Grossly Normal, Normal TMs Ear Exam: Bilateral Ear: Auricle Normal, Canal Normal, TM normal Nose: Normal Inspection, No Blood Throat/Mouth: Normal Inspection, Normal Lips, Normal Oropharynx, Normal Voice, No Airway Compromise Head: Atraumatic, Normocephalic Neck: Normal Inspection Respiratory/Chest: No Respiratory Distress, Lungs Clear, Normal Breath Sounds, No Accessory Muscle Use Cardiovascular: Regular Rate, Rhythm, No Edema GI/Abdominal: Normal Bowel Sounds, Soft, Non-Tender, No Distention Extremities: Normal Inspection, Normal Range of Motion, Non-Tender, No Pedal Edema Neurological: Alert, Oriented, CN II-XII Intact, Normal Cognition, No Motor/Sensory Deficits Psychiatric: Normal Affect, Normal Mood Skin Exam: Warm, Dry, Intact, Normal Color, No Rash Course - Vital Signs Last Recorded V/S: Last Vital Signs Temp 36.6 C 10/12/20 21:31 Pulse 80 10/12/20 23:02 Resp 16 10/12/20 21:31 BP 116/73 10/12/20 23:02 Pulse Ox 97 10/12/20 23:02 - Orders/Labs/Meds Orders: Active Orders 24 hr Category Date Time Status CULTURE URINE [RM] Stat Lab 10/12/20 21:50 Stop Req Sodium Chloride 0.9% [Saline Flush] Med 10/12/20 21:55 Active 10 ml FLUSH ASDIRECTED PRN Saline Lock Insert [OM.PC] Routine Oth 10/12/20 21:55 Ordered Medication Orders Sodium Chloride (Sodium Chloride 0.9% 10 Ml Syringe) 10 ml FLUSH ASDIRECTED PRN PRN Reason: Keep Vein Open Last Admin: 10/12/20 22:00 Dose: 10 ml Documented by: JULIA Labs: Laboratory Tests 10/12/20 10/12/20 10/12/20 Range/Units 21:03 21:03 21:03 WBC 3.2 L (4.5-11.0) K/uL RBC 3.46 (3.30-5.50) M/uL Hgb 12.0 (12.0-15.0) g/dL Hct 34.4 L (36.0-48.0) % MCV 99 H (80-98) fL MCH 35 H (27-31) pg MCHC 35 (32-36) % Plt Count 100 L (150-400) K/uL Sodium 130 L (140-148) mmol/L Potassium 2.6 L* (3.6-5.2) mmol/L Chloride 91 L (100-108) mmol/L Carbon Dioxide 29 (21-32) mmol/L Anion Gap 12.6 (5.0-14.0) mmol/L BUN 5 L (7-18) mg/dL Creatinine 0.9 (0.6-1.0) mg/dL Est Cr Clr Drug Dosing 69.53 mL/min Estimated GFR (MDRD) > 60 (>60) Glucose 93 (74-106) mg/dL Calcium 9.0 (8.5-10.1) mg/dL Magnesium 1.4 L (1.8-2.4) mg/dL Ammonia 24 (11-32) umol/L C-Reactive Protein (0.0-0.3) mg/dL TSH, Ultra Sensitive 3.168 (0.358-3.740) uIU/mL Urine Color (YELLOW) Urine Appearance (CLEAR) Urine pH (5.0-8.0) Ur Specific [place] (1.008-1.030) Urine Protein (NEGATIVE) mg/dL Urine Glucose (UA) (NEGATIVE) mg/dL Urine Ketones (NEGATIVE) mg/dL Urine Occult Blood (NEGATIVE) Urine Nitrite (NEGATIVE) Urine Bilirubin (NEGATIVE) Urine Urobilinogen (0.2-1.0) EU/dL Ur Leukocyte Esterase (NEGATIVE) Urine RBC (0-5) Urine WBC (0-5) Ur Epithelial Cells Amorphous Sediment Urine Bacteria Urine Mucus Urine Opiates Screen (NEGATIVE) Ur Oxycodone Screen (NEGATIVE) Urine Methadone Screen (NEGATIVE) Ur Propoxyphene Screen (NEGATIVE) Ur Barbiturates Screen (NEGATIVE) Ur Tricyclics Screen (NEGATIVE) Ur Phencyclidine Scrn (NEGATIVE) Ur Amphetamine Screen (NEGATIVE) U Methamphetamines Scrn (NEGATIVE) Urine MDMA Screen (NEGATIVE) U Benzodiazepines Scrn (NEGATIVE) U Cocaine Metab Screen (NEGATIVE) U Marijuana (THC) Screen (NEGATIVE) Ethyl Alcohol mg/dL 10/12/20 10/12/20 10/12/20 Range/Units 21:03 21:05 21:30 WBC (4.5-11.0) K/uL RBC (3.30-5.50) M/uL Hgb (12.0-15.0) g/dL Hct (36.0-48.0) % MCV (80-98) fL MCH (27-31) pg MCHC (32-36) % Plt Count (150-400) K/uL Sodium (140-148) mmol/L Potassium (3.6-5.2) mmol/L Chloride (100-108) mmol/L Carbon Dioxide (21-32) mmol/L Anion Gap (5.0-14.0) mmol/L BUN (7-18) mg/dL Creatinine (0.6-1.0) mg/dL Est Cr Clr Drug Dosing mL/min Estimated GFR (MDRD) (>60) Glucose (74-106) mg/dL Calcium (8.5-10.1) mg/dL Magnesium (1.8-2.4) mg/dL Ammonia (11-32) umol/L C-Reactive Protein < 0.05 (0.0-0.3) mg/dL TSH, Ultra Sensitive (0.358-3.740) uIU/mL Urine Color Other A (YELLOW) Urine Appearance Cloudy A (CLEAR) Urine pH 5.5 (5.0-8.0) Ur Specific [place] 1.025 (1.008-1.030) Urine Protein Negative (NEGATIVE) mg/dL Urine Glucose (UA) Negative (NEGATIVE) mg/dL Urine Ketones 80 H (NEGATIVE) mg/dL Urine Occult Blood Negative (NEGATIVE) Urine Nitrite Positive H (NEGATIVE) Urine Bilirubin Small H (NEGATIVE) Urine Urobilinogen 4.0 H (0.2-1.0) EU/dL Ur Leukocyte Esterase Trace H (NEGATIVE) Urine RBC 0-5 (0-5) Urine WBC 10-20 H (0-5) Ur Epithelial Cells Rare Amorphous Sediment Not seen Urine Bacteria Moderate Urine Mucus Not seen Urine Opiates Screen (NEGATIVE) Ur Oxycodone Screen (NEGATIVE) Urine Methadone Screen (NEGATIVE) Ur Propoxyphene Screen (NEGATIVE) Ur Barbiturates Screen (NEGATIVE) Ur Tricyclics Screen (NEGATIVE) Ur Phencyclidine Scrn (NEGATIVE) Ur Amphetamine Screen (NEGATIVE) U Methamphetamines Scrn (NEGATIVE) Urine MDMA Screen (NEGATIVE) U Benzodiazepines Scrn (NEGATIVE) U Cocaine Metab Screen (NEGATIVE) U Marijuana (THC) Screen (NEGATIVE) Ethyl Alcohol < 3 mg/dL 10/12/20 Range/Units 21:30 WBC (4.5-11.0) K/uL RBC (3.30-5.50) M/uL Hgb (12.0-15.0) g/dL Hct (36.0-48.0) % MCV (80-98) fL MCH (27-31) pg MCHC (32-36) % Plt Count (150-400) K/uL Sodium (140-148) mmol/L Potassium (3.6-5.2) mmol/L Chloride (100-108) mmol/L Carbon Dioxide (21-32) mmol/L Anion Gap (5.0-14.0) mmol/L BUN (7-18) mg/dL Creatinine (0.6-1.0) mg/dL Est Cr Clr Drug Dosing mL/min Estimated GFR (MDRD) (>60) Glucose (74-106) mg/dL Calcium (8.5-10.1) mg/dL Magnesium (1.8-2.4) mg/dL Ammonia (11-32) umol/L C-Reactive Protein (0.0-0.3) mg/dL TSH, Ultra Sensitive (0.358-3.740) uIU/mL Urine Color (YELLOW) Urine Appearance (CLEAR) Urine pH (5.0-8.0) Ur Specific [place] (1.008-1.030) Urine Protein (NEGATIVE) mg/dL Urine Glucose (UA) (NEGATIVE) mg/dL Urine Ketones (NEGATIVE) mg/dL Urine Occult Blood (NEGATIVE) Urine Nitrite (NEGATIVE) Urine Bilirubin (NEGATIVE) Urine Urobilinogen (0.2-1.0) EU/dL Ur Leukocyte Esterase (NEGATIVE) Urine RBC (0-5) Urine WBC (0-5) Ur Epithelial Cells Amorphous Sediment Urine Bacteria Urine Mucus Urine Opiates Screen Negative (NEGATIVE) Ur Oxycodone Screen Negative (NEGATIVE) Urine Methadone Screen Negative (NEGATIVE) Ur Propoxyphene Screen Negative (NEGATIVE) Ur Barbiturates Screen Negative (NEGATIVE) Ur Tricyclics Screen Negative (NEGATIVE) Ur Phencyclidine Scrn Negative (NEGATIVE) Ur Amphetamine Screen Negative (NEGATIVE) U Methamphetamines Scrn Negative (NEGATIVE) Urine MDMA Screen Negative (NEGATIVE) U Benzodiazepines Scrn Negative (NEGATIVE) U Cocaine Metab Screen Negative (NEGATIVE) U Marijuana (THC) Screen Negative (NEGATIVE) Ethyl Alcohol mg/dL Meds: Medications Generic Name Dose Route Start Last Admin Trade Name Freq PRN Reason Stop Dose Admin Sodium Chloride 10 ml 10/12/20 21:55 10/12/20 22:00 Sodium Chloride 0.9% 10 Ml Syringe FLUSH 10 ml ASDIRECTED PRN Administration Keep Vein Open Discontinued Medications Generic Name Dose Route Start Last Admin Trade Name Freq PRN Reason Stop Dose Admin Acetaminophen 650 mg 10/12/20 22:26 10/12/20 23:11 Acetaminophen 325 Mg Tab PO 10/12/20 22:27 650 mg NOW ONE Administration Potassium Chloride 20 meq/ 100 mls @ 50 mls/hr 10/12/20 21:55 10/12/20 22:12 Premix IV 10/12/20 23:54 50 mls/hr ONETIME ONE Administration Magnesium Sulfate 2 gm/ Premix 50 mls @ 25 mls/hr 10/12/20 21:56 10/12/20 22:09 IV 10/12/20 23:55 25 mls/hr ONETIME ONE Administration Lidocaine HCl 2 ml 10/12/20 21:59 10/12/20 22:12 Lidocaine 1% 5 Ml Sdv INJECT 10/12/20 22:00 2 ml ONETIME ONE Administration Ondansetron HCl 4 mg 10/12/20 21:03 10/12/20 21:48 Ondansetron 4 Mg Tab.Dis PO 10/12/20 21:04 4 mg ONETIME ONE Administration Polyethylene Glycol 34 gm 10/12/20 21:03 10/12/20 22:11 Polyethylene Glycol 3350 Powder 17 Gm Packet PO 10/12/20 21:04 34 gm ONETIME ONE Administration Polyethylene Glycol Confirm 10/12/20 21:53 10/12/20 22:08 Polyethylene Glycol 3350 Powder 17 Gm Packet Administered 10/12/20 21:54 Not Given Dose 17 gm .ROUTE .STK-MED ONE Potassium Chloride 40 meq 10/12/20 21:55 10/12/20 22:09 Potassium Chloride 20 Meq Tab.Er PO 10/12/20 21:56 40 meq ONETIME ONE Administration Departure - Departure Time of Disposition: 00:15 Disposition: Home, Self-Care 01 Condition: Fair Clinical Impression: Hypokalemia, Hypomagnesemia, Hyponatremia - Discharge Information *PRESCRIPTION DRUG MONITORING PROGRAM REVIEWED*: Not Applicable *COPY OF PRESCRIPTION DRUG MONITORING REPORT IN PATIENT FARHAT: Not Applicable Referrals: Rick James MD [Primary Care Provider] - Forms: ED Department Discharge Additional Instructions: Increase your potassium and magnesium supplementation to three times/day. Discuss possibly holding your furosemide with Dr. James on Wednesday. Return as needed. Sepsis Event Note (ED) - Focused Exam Vital Signs: Vital Signs Temp Pulse Resp BP Pulse Ox 10/12/20 23:02 80 116/73 97 10/12/20 21:56 83 125/79 10/12/20 21:31 36.6 C 84 16 134/86 98 10/12/20 21:23 84 134/86 98 10/12/20 20:36 36.6 C 84 16 147/90 H 100 - My Orders Last 24 Hours: My Active Orders 10/12/20 21:50 CULTURE URINE [RM] Stat 10/12/20 21:55 Sodium Chloride 0.9% [Saline Flush] 10 ml FLUSH ASDIRECTED PRN Saline Lock Insert [OM.PC] Routine - Assessment/Plan Last 24 Hours: My Active Orders 10/12/20 21:50 CULTURE URINE [RM] Stat 10/12/20 21:55 Sodium Chloride 0.9% [Saline Flush] 10 ml FLUSH ASDIRECTED PRN Saline Lock Insert [OM.PC] Routine
[2020-10-12] MEDS ORDERED: Polyethylene Glycol 3350 Powder 17 GM Packet ONE (21:53)
[2020-10-12] MEDS ORDERED: Potassium Chloride 20 MEQ Tab.ER PO ONE (21:55)
[2020-10-12] MEDS ORDERED: Sodium Chloride 0.9% 10 ML Syringe FLUSH PRN (21:55)
[2020-10-12] MEDS ORDERED: Potassium Chloride 20 MEQ in Premix Bag 1 BAG IV ONE (21:55)
[2020-10-12] MEDS ORDERED: Magnesium Sulfate/Water 2 GM in Premix Bag 1 BAG IV ONE (21:56)
[2020-10-12] MEDS ORDERED: Acetaminophen 325 MG Tab PO ONE (22:26)
[2020-10-12 23:03] VITALS: BP 116/73; PULSE 80
[2020-10-13] MEDS ORDERED: Potassium Chloride 20 MEQ Tab.ER PO ONE (00:08)
== END 2020-10-13 00:40 | disposition home or self-care (01) ==
LOC: JP.ED 20:14
DX: E87.6 Hypokalemia (principal); E83.42 Hypomagnesemia; E87.1 Hypo-osmolality and hyponatremia; I10 Essential (primary) hypertension; J45.909 Unspecified asthma, uncomplicated; Z88.1 Allergy status to other antibiotic agents; Z88.4 Allergy status to anesthetic agent; Z79.899 Other long term (current) drug therapy
CPT/HCPCS: 36415; 80048; 80305; 80307; 81001; 82140; 83735; 84443; 85027; 86140; 87086; 87088; 87186; 96365; 96366; 96368; 99284; A9270; J3475; J3480

== ENCOUNTER 2020-11-01 06:23 | Day surgery (SDC) | payer BC, MEDICARE ==
[2020-11-01] MEDS ORDERED: Sodium Chloride 0.9% 1,000 ML IV SCH (07:00)
[2020-11-01] MEDS ORDERED: fentaNYL 100 MCG/2 ML SDV ONE (07:16)
[2020-11-01] MEDS ORDERED: Midazolam 1 MG/ML 2 ML SDV ONE (07:16)
[2020-11-01] MEDS ORDERED: Propofol 200 MG/20 ML SDV ONE (07:16)
[2020-11-01 09:52] VITALS: BP 124/81; PULSE 93
--- NOTE | 2020-11-01 11:56 | OR ---
DATE OF PROCEDURE: 11/01/2020 SURGEON: Stan Crouch MD PROCEDURE PERFORMED: Colonoscopy. FINDINGS: 1. Cecal polyp, approximately 5 mm, completely removed using cold biopsy forceps. 2. Cecal polyp, approximately 8 mm, completely removed using hot snare wire device. COMPLICATIONS: None. CERTIFIED MEDICATION AIDE: None. ANESTHESIA: MAC. PREOPERATIVE DIAGNOSIS: Screening colonoscopy. POSTOPERATIVE DIAGNOSIS: Screening colonoscopy. RISKS: Risks, benefits, alternatives, and limitations including, but not limited to infection, bleeding, perforation, false positives, and false negatives were explained to the patient who wished to proceed. PROCEDURE IN DETAIL: The patient was placed in the left lateral decubitus position. Digital rectal exam was performed without abnormality. The scope was introduced and advanced atraumatically to the ileocecal valve. A photo was taken. The scope was brought back through the ascending, transverse, and descending colon, and retroflexed. The aforementioned polyps were identified and completely removed. No evidence of old or new blood. No masses. No colitis. No diverticulosis. The aforementioned polyps were identified and completely removed as described above. No abnormalities on retroflex. Greater than 10 minutes was spent removing the scope. The prep was acceptable. Approximately 90% luminal surface could be seen. The patient tolerated the procedure well. Stan Crouch MD /[id number]
== END 2020-11-01 09:52 | disposition home or self-care (01) ==
LOC: JP.SDS 06:23
PROVIDERS: ATTEND Surgery
DX: Z12.11 Encounter for screening for malignant neoplasm of colon (principal); D12.0 Benign neoplasm of cecum; Z88.8 Allergy status to other drugs, medicaments and biological substances
CPT/HCPCS: 45380; 45385; J2250; J2704; J3010; J7030

== ENCOUNTER 2020-11-07 16:48 | Emergency (ER) | payer MEDICARE ==
[2020-11-07 17:21] VITALS: BP 163/85; PULSE 109
--- NOTE | 2020-11-07 18:23 | EDM.PDOC ---
ED HPI GENERAL MEDICAL PROBLEM - General Chief Complaint: General Stated Complaint: SWOLLEN FOOT AND LEG Time Seen by Provider: 11/07/20 18:00 Source of Information: Reports: Patient History Limitations: Reports: No Limitations - History of Present Illness INITIAL COMMENTS - FREE TEXT/NARRATIVE: 45-year-old female with known cirrhosis, chronic electrolyte abnormalities, and chronic recurring abdominal pain had a colonoscopy 5 days ago, and since that time she has had increased abdominal bloating and lower extremity edema. She was rechecked in the clinic earlier this week and was reassured but her diuretics were increased. She is not improving, bowels are moving, no fever chills but she feels like it is hard to take a deep breath. No cough. Most of her discomfort is in her abdomen from bloating, tightness and discomfort. No urinary symptoms. Onset: Gradual Duration: Day(s): (5 days) Location: Reports: Abdomen, Other (Edema of the lower extremities, right greater than left) Associated Symptoms: Reports: Malaise, Shortness of Breath (Denies shortness of breath but feels like she cannot take a full breath, it is also uncomfortable to take a deep breath), Weakness. Denies: Confusion, Chest Pain Right Leg Pain Score (Numeric/FACES): 6 - Related Data Allergies Allergy/AdvReac Type Severity Reaction Status Date / Time doxycycline Allergy Intermediate Rash Verified 11/07/20 17:25 erythromycin base Allergy Intermediate Rash Verified 11/07/20 17:25 procaine [From Novocain] Allergy Intermediate Rash Verified 11/07/20 17:25 Home Meds: Home Meds Multivitamin [Multi-Vitamin Daily] 1 tab PO DAILY 12/02/15 [History] Gabapentin [Neurontin] 600 mg PO TID 07/13/18 [History] Albuterol Sulfate [Proair Respiclick] 1 - 2 puff IH Q4HR PRN 08/10/18 [History] Cyanocobalamin (Vitamin B-12) [Vitamin B-12] 1,000 mcg SL DAILY 08/10/18 [History] Magnesium 400 mg PO BID 11/23/18 [History] Citalopram [Citalopram HBr] 20 mg PO DAILY #30 tablet 04/14/19 [Rx] Lidocaine/Prilocaine [EMLA Crm] 1 applic TP ASDIRECTED PRN 10/30/20 [History] Ondansetron [Zofran ODT] 4 mg PO Q6H PRN 10/30/20 [History] SUMAtriptan succinate [Imitrex] 100 mg PO ASDIRECTED PRN 10/30/20 [History] traZODone 50 mg PO BEDTIME 10/30/20 [History] Furosemide [Lasix] 40 mg PO DAILY 11/07/20 [History] Potassium Chloride [Potassium Chloride Solution] 20 meq PO TID 11/07/20 [History] Spironolactone [Aldactone] 50 mg PO BID 11/07/20 [History] Past Medical History HEENT History: Reports: None Cardiovascular History: Reports: Hypertension Respiratory History: Reports: Asthma Gastrointestinal History: Reports: GERD, Other (See Below) Other Gastrointestinal History: [id number] Genitourinary History: Reports: Other (See Below) Other Genitourinary History: 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 fistula RECEIVER DISPATCHER History: Reports: Dysfunctional Uterine Bleeding, Musculoskeletal History: Reports: Fracture Neurological History: Reports: Migraines Psychiatric History: Reports: Addiction, Anxiety, Depression Endocrine/Metabolic History: Reports: Hypothyroidism, Vitamin D Deficiency Hematologic History: Reports: Anemia, B12 Deficiency, Blood Transfusion(s), Iron Deficiency, Other (See Below) Other Hematologic History: vitamin D def Dermatologic History: Reports: Other (See Below) Other Dermatologic History: sores on face, neck and back - Infectious Disease History Infectious Disease History: Reports: Chicken Pox, Measles - Past Surgical History HEENT Surgical History: Reports: Oral Surgery Respiratory Surgical History: Reports: None GI Surgical History: Reports: Bariatric Procedure, Cholecystectomy, Colonoscopy, EGD Female Surgical History: Reports: Section, Hysterectomy, Tubal Ligation Endocrine Surgical History: Reports: None Musculoskeletal Surgical History: Reports: Other (See Below) Other Musculoskeletal Surgeries/Procedures:: Ankle plate/pin - hdwe removed Social & Family History - Family History Family Medical History: No Pertinent Family History Cardiac: Reports: MA - Tobacco Use Tobacco Use Status *Q: Current Every Day Tobacco User Years of Tobacco use: 20 Packs/Tins Daily: 0.5 - Caffeine Use Caffeine Use: Reports: Soda Caffeine Use Comment: occasional soda ED ROS GENERAL - Review of Systems Review Of Systems: See Below Constitutional: Reports: Malaise, Weight Gain (Has gained between 15 and 20 pounds since last week). Denies: Fever, Chills HEENT: Reports: No Symptoms, Other (No jaundice) Respiratory: Reports: Other (See HPI) Cardiovascular: Denies: Chest Pain, Palpitations GI/Abdominal: Reports: Other (See HPI) : Reports: No Symptoms Skin: Reports: No Symptoms Neurological: Reports: Weakness ED EXAM, GENERAL - Physical Exam Exam: See Below Exam Limited By: No Limitations General Appearance: Alert, Mild Distress, Other (Patient is stable but looks fairly uncomfortable) Eye Exam: Bilateral Eye: EOMI, Normal Inspection (No obvious jaundice) Head: Atraumatic Respiratory/Chest: No Respiratory Distress, Lungs Clear Cardiovascular: Regular Rate, Rhythm, Tachycardia (Mild tachycardia) GI/Abdominal: Distended, Tender (Abdomen is diffusely tender, feels distended and somewhat firm) Extremities: Other (1+ pitting edema of the right lower extremity even proximal to the knee, she also has edema but not as much in the left lower extremity) Neurological: Alert, Oriented Psychiatric: Anxious Skin Exam: Warm, Dry Course - Vital Signs Last Recorded V/S: Last Vital Signs Temp 97.6 F 11/07/20 17:20 Pulse 109 H 11/07/20 17:20 Resp 20 11/07/20 17:20 BP 163/85 H 11/07/20 17:20 Pulse Ox 100 11/07/20 17:20 - Orders/Labs/Meds Orders: Active Orders 24 hr Category Date Time Status US Guidance Paracentesis NC [US] Stat Exams 11/07/20 18:51 Taken VL Duplex Lwr Ext Veins Ltd Rt [US] Stat Exams 11/07/20 18:51 Taken Labs: Laboratory Tests 11/07/20 11/07/20 Range/Units 18:11 18:11 WBC 4.2 L (4.5-11.0) K/uL RBC 3.03 L (3.30-5.50) M/uL Hgb 10.6 L (12.0-15.0) g/dL Hct 31.3 L (36.0-48.0) % MCV 103 H (80-98) fL MCH 35 H (27-31) pg MCHC 34 (32-36) % Plt Count 107 L (150-400) K/uL Neut % (Auto) 64.7 (36-66) % Lymph % (Auto) 26.2 (24-44) % Haakon % (Auto) 8.7 H (2-6) % Eos % (Auto) 0.2 L (2-4) % Baso % (Auto) 0.2 (0-1) % Sodium 131 L (140-148) mmol/L Potassium 3.2 L (3.6-5.2) mmol/L Chloride 94 L (100-108) mmol/L Carbon Dioxide 28 (21-32) mmol/L Anion Gap 12.2 (5.0-14.0) mmol/L BUN 4 L (7-18) mg/dL Creatinine 0.7 (0.6-1.0) mg/dL Est Cr Clr Drug Dosing 82.19 mL/min Estimated GFR (MDRD) > 60 (>60) Glucose 84 (74-106) mg/dL Calcium 8.5 (8.5-10.1) mg/dL Magnesium 1.3 L (1.8-2.4) mg/dL Total Bilirubin 1.4 H (0.2-1.0) mg/dL AST 147 H D (15-37) U/L ALT 66 (12-78) U/L Alkaline Phosphatase 158 H (46-116) U/L Total Protein 6.8 (6.4-8.2) g/dL Albumin 2.2 L (3.4-5.0) g/dL Globulin 4.6 H (2.3-3.5) g/dL Albumin/Globulin Ratio 0.5 L (1.2-2.2) Lipase 41 L (73-393) U/L - Re-Assessments/Exams Free Text/Narrative Re-Assessment/Exam: 11/07/20 20:11 [id number] ultrasound showed moderate ascites. CBC CMP and lipase were obtained. Also magnesium. She has chronic problems with hypomagnesemia. A formal ultrasound of the lower extremity on the right was obtained to rule out DVT, and the abdomen was marked for paracentesis. 11/07/20 20:12 Magnesium is 1.3 which is not real unusual for this patient. Sodium 131 and potassium 3.2. DVT study was negative, discussed her condition with Dr. Gonsalez and he agreed to see her tomorrow morning for paracentesis. She was given 10 Percocet for extra pain control for tonight and will return tomorrow morning for her procedure. Departure - Departure Time of Disposition: 20:32 Disposition: Home, Self-Care 01 Clinical Impression: Ascites Qualifiers: Ascites type: due to alcoholic cirrhosis Qualified Code(s): K70.31 - Alcoholic cirrhosis of liver with ascites Fluid overload Qualifiers: Hypervolemia type: other Qualified Code(s): E87.79 - Other fluid overload Abdominal pain Qualifiers: Abdominal location: generalized Qualified Code(s): R10.84 - Generalized a bdominal pain - Discharge Information Instructions: Ascites Referrals: Rick James MD [Primary Care Provider] - Forms: ED Department Discharge Care Plan Goals: Consider double dose of spironolactone tonight, and use Percocet as needed for extra pain control. Avoid any extra salt intake and return tomorrow morning for your paracentesis as planned. Return sooner if worsening such as fever spike or increased pain which is intractable and unresponsive to pain medication. Sepsis Event Note (ED) - Evaluation Sepsis Screening Result: No Definite Risk - Focused Exam Vital Signs: Vital Signs Temp Pulse Resp BP Pulse Ox 11/07/20 17:20 97.6 F 109 H 20 163/85 H 100 - My Orders Last 24 Hours: My Active Orders 11/07/20 18:51 US Guidance Paracentesis NC [US] Stat VL Duplex Lwr Ext Veins Ltd Rt [US] Stat - Assessment/Plan Last 24 Hours: My Active Orders 11/07/20 18:51 US Guidance Paracentesis NC [US] Stat VL Duplex Lwr Ext Veins Ltd Rt [US] Stat
--- NOTE | 2020-11-08 09:04 | US ---
VL Duplex Lwr Ext Veins Ltd Rt INDICATION: leg edema FINDINGS: Ultrasound examination of the lower extremity using Doppler and compressive technique demonstrates that the common femoral, femoral, and popliteal veins are patent, and negative for thrombus. The calf veins were segmentally visualized and are negative where seen. IMPRESSION: Negative for deep venous thrombosis.
== END 2020-11-07 20:28 | disposition home or self-care (01) ==
LOC: JP.ED 16:48
DX: K70.31 Alcoholic cirrhosis of liver with ascites (principal); E87.79 Other fluid overload; I10 Essential (primary) hypertension; Z72.0 Tobacco use; Z88.1 Allergy status to other antibiotic agents; Z90.49 Acquired absence of other specified parts of digestive tract
CPT/HCPCS: 36415; 80053; 83690; 83735; 85025; 93971-26; 93971-RT; 99284-25

== ENCOUNTER 2020-11-27 22:05 | Inpatient (IN) | payer BC ==
[2020-11-27] MEDS ORDERED: Sodium Chloride 0.9% 10 ML Syringe FLUSH PRN (22:37)
[2020-11-27] MEDS ORDERED: Ketorolac 30 MG/ML SDV IVPUSH ONE (23:07)
[2020-11-28] MEDS ORDERED: Sodium Chloride 0.9% 1,000 ML IV SCH (00:15)
[2020-11-28] MEDS ORDERED: HYDROmorphone 1 MG/ML Syringe IVPUSH ONE (00:26)
--- NOTE | 2020-11-28 00:26 | EDM.PDOC ---
ED HPI GENERAL MEDICAL PROBLEM - General Chief Complaint: Abdominal Pain Stated Complaint: STOMACH PAINS Time Seen by Provider: 11/27/20 23:53 Source of Information: Reports: Patient, Old Records History Limitations: Reports: No Limitations - History of Present Illness INITIAL COMMENTS - FREE TEXT/NARRATIVE: Angie is a 45-year-old female presenting to the ED for acute onset of epigastric pain. 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 She has been undergoing evaluation for abdominal pain with Dr. Gonsalez. She went in last week for a paracentesis because of abdominal distention which she thought was due to ascites. He performed a paracentesis and was only able to get a couple cc of clear fluid out before the procedure was terminated. She has been going through fairly extensive evaluation for her abdominal pain over the last 3 weeks but presents tonight because it is significantly worsened in the epigastric area. She states that it feels like somebody is stabbing her through the abdomen. The patient does have a history of a Iman-en-Y gastric bypass. She has had some nausea denied any vomiting. She has not had any diarrhea. Upper Abdomen Pain Score (Numeric/FACES): 9 - Related Data Allergies Allergy/AdvReac Type Severity Reaction Status Date / Time doxycycline Allergy Intermediate Rash Verified 11/19/20 10:08 erythromycin base Allergy Intermediate Rash Verified 11/19/20 10:08 procaine [From Novocain] Allergy Intermediate Rash Verified 11/19/20 10:08 Home Meds: Home Meds Multivitamin [Multi-Vitamin Daily] 1 tab PO DAILY 12/02/15 [History] Gabapentin [Neurontin] 600 mg PO TID 07/13/18 [History] Albuterol Sulfate [Proair Respiclick] 1 - 2 puff IH Q4HR PRN 08/10/18 [History] Cyanocobalamin (Vitamin B-12) [Vitamin B-12] 1,000 mcg SL DAILY 08/10/18 [History] Magnesium 400 mg PO BID 11/23/18 [History] Citalopram [Citalopram HBr] 20 mg PO DAILY #30 tablet 04/14/19 [Rx] Lidocaine/Prilocaine [EMLA Crm] 1 applic TP ASDIRECTED PRN 10/30/20 [History] Ondansetron [Zofran ODT] 4 mg PO Q6H PRN 10/30/20 [History] SUMAtriptan succinate [Imitrex] 100 mg PO ASDIRECTED PRN 10/30/20 [History] traZODone 50 mg PO BEDTIME 10/30/20 [History] Furosemide [Lasix] 100 mg PO DAILY 11/07/20 [History] Potassium Chloride [Potassium Chloride Solution] 20 meq PO TID 11/07/20 [History] Spironolactone [Aldactone] 150 mg PO BID 11/07/20 [History] Dicyclomine [Bentyl] 10 mg PO TID 11/19/20 [History] Past Medical History HEENT History: Reports: None Cardiovascular History: Reports: Hypertension Respiratory History: Reports: Asthma Gastrointestinal History: Reports: GERD, Other (See Below) Other Gastrointestinal History: [id number] Genitourinary History: Reports: Other (See Below) Other Genitourinary History: 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 fistula MEDICAL RECORDS RECEPTIONIST History: Reports: Dysfunctional Uterine Bleeding, Musculoskeletal History: Reports: Fracture Neurological History: Reports: Migraines Psychiatric History: Reports: Addiction, Anxiety, Depression Endocrine/Metabolic History: Reports: Hypothyroidism, Vitamin D Deficiency Hematologic History: Reports: Anemia, B12 Deficiency, Blood Transfusion(s), Iron Deficiency, Other (See Below) Other Hematologic History: vitamin D def Dermatologic History: Reports: Other (See Below) Other Dermatologic History: sores on face, neck and back - Infectious Disease History Infectious Disease History: Reports: Chicken Pox, Measles - Past Surgical History HEENT Surgical History: Reports: Oral Surgery Respiratory Surgical History: Reports: None GI Surgical History: Reports: Bariatric Procedure, Cholecystectomy, Colonoscopy, EGD Female Surgical History: Reports: Section, Hysterectomy, Tubal Ligation Endocrine Surgical History: Reports: None Musculoskeletal Surgical History: Reports: Other (See Below) Other Musculoskeletal Surgeries/Procedures:: Ankle plate/pin - hdwe removed Social & Family History - Family History Family Medical History: No Pertinent Family History Cardiac: Reports: [place] - Tobacco Use Tobacco Use Status *Q: Current Every Day Tobacco User Years of Tobacco use: 20 Packs/Tins Daily: 0.5 - Caffeine Use Caffeine Use: Reports: Soda Caffeine Use Comment: occasional soda - Recreational Drug Use Recreational Drug Use: No ED ROS GENERAL - Review of Systems Review Of Systems: See Below Constitutional: Reports: Chills, Malaise, Decreased Appetite HEENT: Reports: No Symptoms Respiratory: Reports: No Symptoms Cardiovascular: Reports: No Symptoms Endocrine: Reports: No Symptoms GI/Abdominal: Reports: Abdominal Pain (The gastric), Decreased Appetite, Nausea. Denies: Constipation, Diarrhea, Vomiting : Reports: No Symptoms Musculoskeletal: Reports: No Symptoms Skin: Reports: No Symptoms Neurological: Reports: No Symptoms Psychiatric: Reports: Anxiety Hematologic/Lymphatic: Reports: No Symptoms Immunologic: Reports: No Symptoms ED EXAM, GI/ABD - Physical Exam Exam: See Below Exam Limited By: No Limitations General Appearance: Alert, Anxious, Mild Distress, Moderate Distress Eyes: Bilateral: EOMI Throat/Mouth: Normal Inspection, Normal Oropharynx, Normal Voice, No Airway Compromise Head: Atraumatic, Normocephalic Neck: Normal Inspection, Supple. No: Lymphadenopathy (R), Lymphadenopathy (L) Respiratory/Chest: No Respiratory Distress, Lungs Clear, Normal Breath Sounds Cardiovascular: Normal Peripheral Pulses, Regular Rate, Rhythm, No Murmur GI/Abdominal Exam: Distended (Mild distention with tympany to percussion throughout the abdomen), Guarding (Epigastric guarding), Tender (Epigastric tenderness), Abnormal Bowel Sounds (Mildly diminished bowel sounds), Other (I do not appreciate a fluid wave on auscultation). No: Rigid, Rebound Extremities: Normal Inspection, Normal Range of Motion, No Pedal Edema Neurological: Alert, Oriented, Normal Cognition, No Motor/Sensory Deficits Psychiatric: Normal Affect, Normal Mood Skin Exam: Warm, Dry, Intact, Normal Color Course - Vital Signs Last Recorded V/S: Last Vital Signs Temp 36.2 C 11/27/20 22:31 Pulse 77 11/28/20 01:17 Resp 14 11/28/20 01:17 BP 103/52 L 11/28/20 01:17 Pulse Ox 99 11/28/20 01:17 - Orders/Labs/Meds Orders: Active Orders 24 hr Category Date Time Status Sodium Chloride 0.9% [Normal Saline] 1,000 ml Med 11/28/20 00:15 Active IV ASDIRECTED Sodium Chloride 0.9% [Normal Saline] 80 ml Med 11/28/20 00:30 Active IV ASDIRECTED Sodium Chloride 0.9% [Saline Flush] Med 11/27/20 22:37 Active 10 ml FLUSH ASDIRECTED PRN Saline Lock Insert [OM.PC] Routine Oth 11/27/20 22:37 Ordered Medication Orders Sodium Chloride (Normal Saline) 1,000 mls @ 999 mls/hr IV ASDIRECTED BILLY Last Admin: 11/28/20 00:20 Dose: 999 mls/hr Documented by: JULIA Sodium Chloride (Normal Saline) 80 mls @ 3.5 mls/sec IV ASDIRECTED BILLY Last Admin: 11/28/20 00:56 Dose: 2.5 mls/sec Documented by: ANUJA Sodium Chloride (Sodium Chloride 0.9% 10 Ml Syringe) 10 ml FLUSH ASDIRECTED PRN PRN Reason: Keep Vein Open Last Admin: 11/27/20 23:26 Dose: 10 ml Documented by: GUERRERO Labs: Laboratory Tests 11/27/20 11/27/20 11/27/20 Range/Units 22:45 22:45 22:45 WBC 4.7 (4.5-11.0) K/uL RBC 3.12 L (3.30-5.50) M/uL Hgb 11.4 L (12.0-15.0) g/dL Hct 31.8 L (36.0-48.0) % MCV 102 H (80-98) fL MCH 37 H (27-31) pg MCHC 36 (32-36) % Plt Count 130 L (150-400) K/uL Neut % (Auto) 67.7 H (36-66) % Lymph % (Auto) 19.8 L (24-44) % [place] % (Auto) 11.7 H (2-6) % Eos % (Auto) 0.6 L (2-4) % Baso % (Auto) 0.2 (0-1) % Sodium 117 L* (140-148) mmol/L Potassium 4.2 (3.6-5.2) mmol/L Chloride 82 L (100-108) mmol/L Carbon Dioxide 26 (21-32) mmol/L Anion Gap 13.2 (5.0-14.0) mmol/L BUN 8 D (7-18) mg/dL Creatinine 0.9 (0.6-1.0) mg/dL Est Cr Clr Drug Dosing 63.92 mL/min Estimated GFR (MDRD) > 60 (>60) Glucose 91 (74-106) mg/dL Lactic Acid 1.7 (0.4-2.0) mmol/L Calcium 9.5 (8.5-10.1) mg/dL Total Bilirubin 2.2 H D (0.2-1.0) mg/dL AST 86 H (15-37) U/L ALT 39 (12-78) U/L Alkaline Phosphatase 156 H (46-116) U/L Total Protein 8.1 (6.4-8.2) g/dL Albumin 3.3 L (3.4-5.0) g/dL Globulin 4.8 H (2.3-3.5) g/dL Albumin/Globulin Ratio 0.7 L (1.2-2.2) Lipase 93 (73-393) U/L SARS-CoV-2 RNA (EDAGR) (NEGATIVE) 11/28/20 11/28/20 Range/Units 00:12 02:14 WBC (4.5-11.0) K/uL RBC (3.30-5.50) M/uL Hgb (12.0-15.0) g/dL Hct (36.0-48.0) % MCV (80-98) fL MCH (27-31) pg MCHC (32-36) % Plt Count (150-400) K/uL Neut % (Auto) (36-66) % Lymph % (Auto) (24-44) % [place] % (Auto) (2-6) % Eos % (Auto) (2-4) % Baso % (Auto) (0-1) % Sodium 118 L* (140-148) mmol/L Potassium (3.6-5.2) mmol/L Chloride (100-108) mmol/L Carbon Dioxide (21-32) mmol/L Anion Gap (5.0-14.0) mmol/L BUN (7-18) mg/dL Creatinine (0.6-1.0) mg/dL Est Cr Clr Drug Dosing mL/min Estimated GFR (MDRD) (>60) Glucose (74-106) mg/dL Lactic Acid (0.4-2.0) mmol/L Calcium (8.5-10.1) mg/dL Total Bilirubin (0.2-1.0) mg/dL AST (15-37) U/L ALT (12-78) U/L Alkaline Phosphatase (46-116) U/L Total Protein (6.4-8.2) g/dL Albumin (3.4-5.0) g/dL Globulin (2.3-3.5) g/dL Albumin/Globulin Ratio (1.2-2.2) Lipase (73-393) U/L SARS-CoV-2 RNA (EDGAR) Negative (NEGATIVE) Meds: Medications Generic Name Dose Route Start Last Admin Trade Name Mely PRN Reason Stop Dose Admin Sodium Chloride 1,000 mls @ 999 mls/hr 11/28/20 00:15 11/28/20 00:20 Normal Saline IV 999 mls/hr ASDIRECTED BILLY Administration Sodium Chloride 80 mls @ 3.5 mls/sec 11/28/20 00:30 11/28/20 00:56 Normal Saline IV 2.5 mls/sec ASDIRECTED BILLY Administration Sodium Chloride 10 ml 11/27/20 22:37 11/27/20 23:26 Sodium Chloride 0.9% 10 Ml Syringe FLUSH 10 ml ASDIRECTED PRN Administration Keep Vein Open Discontinued Medications Generic Name Dose Route Start Last Admin Trade Name Oliq PRN Reason Stop Dose Admin Hydromorphone HCl 1 mg 11/28/20 00:26 11/28/20 00:36 Hydromorphone 1 Mg/Ml Syringe IVPUSH 11/28/20 00:27 1 mg ONETIME ONE Administration Iopamidol 108 ml 11/28/20 00:27 11/28/20 00:55 Iopamidol 612 Mg/Ml 500 Ml Multipack Bottle IV 11/28/20 00:28 108 ml ONETIME ONE Administration Ketorolac Tromethamine 15 mg 11/27/20 23:07 11/27/20 23:25 Ketorolac 30 Mg/Ml Sdv IVPUSH 11/27/20 23:08 15 mg ONETIME ONE Administration Sodium Chloride 10 ml 11/28/20 00:27 11/28/20 00:56 Sodium Chloride 0.9% 10 Ml Syringe FLUSH 11/28/20 00:28 10 ml ONETIME ONE Administration - Radiology Interpretation Free Text/Narrative:: I viewed the images of the CT of the abdomen and pelvis with contrast as well as the report. The report is as follows: FINDINGS: Lower chest: Unremarkable. Liver: Moderate inhomogeneous enhancement of the liver is present and likely due to scattered fatty infiltration. Spleen: Unremarkable. Pancreas: There is a new low-density lesion present within the pancreatic head measuring 2.3 x 1.4 cm. Gallbladder: Previous cholecystectomy noted without significant intra- or extrahepatic biliary ductal dilatation seen. Kidney: Unremarkable. No kidney or ureteral stones or obstruction seen. Adrenal: Unremarkable. Bowel: Previous antegastric-antecolic gastric bypass noted with no definite obstruction of the biliopancreatic limb or Iman-en-Y loop seen. The appendix is normal in appearance and size. Vascular: Unremarkable. Lymph: Unremarkable. Peritoneum: Unremarkable. No pneumoperitoneum is seen. No significant ascites is noted. Pelvis: The patient is status post prior hysterectomy. Soft tissue: Unremarkable. Bone: Bilateral chronic pars defects of L5 noted with no significant anterolisthesis of L5-S1 noted. IMPRESSION: 1. There is a new low-density lesion present within the pancreatic head measuring 2.3 x 1.4 cm. Assessment with outpatient liver MRI is recommended. Dictated by Miguel Clement MD @ 11/28/2020 1:25:57 AM - Re-Assessments/Exams Free Text/Narrative Re-Assessment/Exam: 11/28/20 02:40 patient's labs showing a significant hyponatremia with a sodium 117. The remainder of her comprehensive metabolic panel was unremarkable except a total bilirubin of 2.2, AST of 86, ALT of 39, alkaline phosphatase of 156 and an albumin of 3.3. Venous lactate was 1.7 and lipase was normal at 93 CBC was unremarkable with a leukocyte count of 4.7 and a hemoglobin of 11.4 with a hematocrit of 31.8 and a platelet count of 130,000. Patient was given a liter of IV normal saline and a recheck of her sodium after this revealed it was up only one-point at 118. The patient underwent a CT of the abdomen and pelvis with contrast demonstrating a low density lesion at the head of the pancreas measuring 2.3 x 1.4 cm. This appears to be new and might represent a pancreatic pseudocyst. Patient denies any recent alcohol use stating that she has been abstinent from alcohol since being told she had stage IV liver cirrhosis. In addition she is status post cholecystectomy and there is no indication of any intra or extrahepatic biliary dilation. She is status post Iman-en-Y gastric bypass and given her history and recent development of epigastric pain, I discussed the case with Dr. Gonsalez who did the Iman-en-Y. He recommended admission of the patient for continued correction of her hyponatremia which we will do relatively slowly giving normal saline at 150 mL's per hour. We will also keep her comfortable in the hospital and he will see her in the morning. Departure - Departure Time of Disposition: 03:00 Disposition: Admitted As Inpatient 64 Clinical Impression: Epigastric pain, Hyponatremia, Alcoholic cirrhosis of liver without ascites - Discharge Information Referrals: Rick James MD [Primary Care Provider] - Forms: ED Department Discharge Sepsis Event Note (ED) - Evaluation Sepsis Screening Result: No Definite Risk - Focused Exam Vital Signs: Vital Signs Temp Pulse Resp BP Pulse Ox 11/28/20 01:17 77 14 103/52 L 99 11/28/20 00:58 79 15 96/51 L 99 11/28/20 00:17 77 14 94/44 L 99 11/27/20 23:18 78 99/43 L 99 11/27/20 22:59 73 116/72 99 11/27/20 22:31 36.2 C 70 16 136/83 100 11/27/20 22:23 36.2 C 70 16 136/83 100 - Problem List & Annotations (1) Hyponatremia SNOMED Code(s): 35468415 Code(s): E87.1 - HYPO-OSMOLALITY AND HYPONATREMIA Status: Acute Priority: High Current Visit: Yes (2) Alcoholic cirrhosis of liver without ascites SNOMED Code(s): 748577780 Code(s): K70.30 - ALCOHOLIC CIRRHOSIS OF LIVER WITHOUT ASCITES Status: Chronic Priority: High Current Visit: Yes (3) Epigastric pain SNOMED Code(s): 21951020 Code(s): R10.13 - EPIGASTRIC PAIN Status: Acute Priority: High Current Visit: Yes - Problem List Review Problem List Initiated/Reviewed/Updated: Yes - My Orders Last 24 Hours: My Active Orders 11/27/20 22:37 Sodium Chloride 0.9% [Saline Flush] 10 ml FLUSH ASDIRECTED PRN Saline Lock Insert [OM.PC] Routine 11/28/20 00:15 Sodium Chloride 0.9% [Normal Saline] 1,000 ml IV ASDIRECTED 11/28/20 00:30 Sodium Chloride 0.9% [Normal Saline] 80 ml IV ASDIRECTED - Assessment/Plan Last 24 Hours: My Active Orders 11/27/20 22:37 Sodium Chloride 0.9% [Saline Flush] 10 ml FLUSH ASDIRECTED PRN Saline Lock Insert [OM.PC] Routine 11/28/20 00:15 Sodium Chloride 0.9% [Normal Saline] 1,000 ml IV ASDIRECTED 11/28/20 00:30 Sodium Chloride 0.9% [Normal Saline] 80 ml IV ASDIRECTED
[2020-11-28] MEDS ORDERED: Iopamidol 612 MG/ML 500 ML Multipack Bottle IV ONE (00:27)
[2020-11-28] MEDS ORDERED: Sodium Chloride 0.9% 10 ML Syringe FLUSH ONE (00:27)
[2020-11-28] MEDS ORDERED: Sodium Chloride 0.9% 80 ML IV SCH (00:30)
--- NOTE | 2020-11-28 01:26 | CRLCT ---
For Patients: As a result of the Century Cures Act, medical imaging exams and procedure reports are released immediately into your electronic medical record. You may view this report before your referring provider. If you have questions, please contact your health care provider. INDICATION: Epigastric pain, history of iman nausea y TECHNIQUE: CT Abdomen and pelvis with i.v. contrast. Coronal and sagittal reformats were obtained. CONTRAST: 108 mL Isovue 300 COMPARISON: 04/11/2019 FINDINGS: Lower chest: Unremarkable. Liver: Moderate inhomogeneous enhancement of the liver is present and likely due to scattered fatty infiltration. Spleen: Unremarkable. Pancreas: There is a new low-density lesion present within the pancreatic head measuring 2.3 x 1.4 cm. Gallbladder: Previous cholecystectomy noted without significant intra- or extrahepatic biliary ductal dilatation seen. Kidney: Unremarkable. No kidney or ureteral stones or obstruction seen. Adrenal: Unremarkable. Bowel: Previous antegastric-antecolic gastric bypass noted with no definite obstruction of the biliopancreatic limb or Iman-en-Y loop seen. The appendix is normal in appearance and size. Vascular: Unremarkable. Lymph: Unremarkable. Peritoneum: Unremarkable. No pneumoperitoneum is seen. No significant ascites is noted. Pelvis: The patient is status post prior hysterectomy. Soft tissue: Unremarkable. Bone: Bilateral chronic pars defects of L5 noted with no significant anterolisthesis of L5-S1 noted. IMPRESSION: 1. There is a new low-density lesion present within the pancreatic head measuring 2.3 x 1.4 cm. Assessment with outpatient liver MRI is recommended. Dictated by Miguel Clement MD @ 11/28/2020 1:25:57 AM Please note that all CT scans at this facility use dose modulation, iterative reconstruction, and/or weight-based dosing when appropriate to reduce radiation dose to as low as reasonably achievable. Dictated by: Miguel Clement MD @ 11/28/2020 01:26:02 (Electronically Signed)
[2020-11-28] MEDS ORDERED: Ondansetron 4 MG/2 ML SDV IVPUSH PRN (03:53)
[2020-11-28] MEDS ORDERED: HYDROmorphone 1 MG/ML Syringe IV PRN (03:53)
[2020-11-28] MEDS: Sodium Chloride 0.9% 1,000 ML IV SCH ×3 (04:00→15:47)
--- NOTE | 2020-11-28 07:25 | PCM.CONS ---
H&P History of Present Illness - General Date of Service: 11/28/20 Admit Problem/Dx: Admission Diagnosis/Problem Admission Diagnosis/Problem Hyponatremia Source of Information: Patient History Limitations: Reports: No Limitations - History of Present Illness Initial Comments - Free Text/Narative: Ewelina was admitted to the hospital for severe mid epigastric abdominal pain and hyponatremia. She has a history of Cirrhosis of the Liver Stage IV and has been seeing a GI Specialist at [place]. Onset of Symptoms: Reports: Sudden Symptom Onset Date: 11/27/20 Location: Reports: Abdomen (mid epigastric area ) Quality: Reports: Stabbing Severity: Severe Improves with: Reports: Medication Worsens with: Reports: None Context: Reports: Sick Contact Associated Symptoms: Reports: Loss of Appetite, Weakness Upper Abdomen Pain Score (Numeric/FACES): 5 - Related Data Allergies/Adverse Reactions: Allergies Allergy/AdvReac Type Severity Reaction Status Date / Time doxycycline Allergy Intermediate Rash Verified 11/28/20 03:19 erythromycin base Allergy Intermediate Rash Verified 11/28/20 03:19 procaine [From Novocain] Allergy Intermediate Rash Verified 11/28/20 03:19 Home Medications: Home Meds Multivitamin [Multi-Vitamin Daily] 1 tab PO DAILY 12/02/15 [History] Gabapentin [Neurontin] 600 mg PO TID 07/13/18 [History] Albuterol Sulfate [Proair Respiclick] 1 - 2 puff IH Q4HR PRN 08/10/18 [History] Cyanocobalamin (Vitamin B-12) [Vitamin B-12] 1,000 mcg SL DAILY 08/10/18 [History] Magnesium 400 mg PO BID 11/23/18 [History] Citalopram [Citalopram HBr] 20 mg PO DAILY #30 tablet 04/14/19 [Rx] Lidocaine/Prilocaine [EMLA Crm] 1 applic TP ASDIRECTED PRN 10/30/20 [History] Ondansetron [Zofran ODT] 4 mg PO Q6H PRN 10/30/20 [History] SUMAtriptan succinate [Imitrex] 100 mg PO ASDIRECTED PRN 10/30/20 [History] traZODone 50 mg PO BEDTIME 10/30/20 [History] Furosemide [Lasix] 40 mg PO BID 11/07/20 [History] Potassium Chloride [Potassium Chloride Solution] 20 meq PO TID 11/07/20 [History] Spironolactone [Aldactone] 100 mg PO BID 11/07/20 [History] Dicyclomine [Bentyl] 10 mg PO TID 11/19/20 [History] Past Medical History HEENT History: Reports: None Cardiovascular History: Reports: Hypertension Respiratory History: Reports: Asthma Gastrointestinal History: Reports: GERD, Other (See Below) Other Gastrointestinal History: RNY 2002 Genitourinary History: Reports: Other (See Below) Other Genitourinary History: 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 fistula [employer]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: Reports: Dysfunctional Uterine Bleeding, Musculoskeletal History: Reports: Fracture Neurological History: Reports: Migraines Psychiatric History: Reports: Addiction, Anxiety, Depression Endocrine/Metabolic History: Reports: Hypothyroidism, Vitamin D Deficiency Hematologic History: Reports: Anemia, B12 Deficiency, Blood Transfusion(s), Iron Deficiency, Other (See Below) Other Hematologic History: vitamin D def Dermatologic History: Reports: Other (See Below) Other Dermatologic History: sores on face, neck and back - Infectious Disease History Infectious Disease History: Reports: Chicken Pox, Measles - Past Surgical History HEENT Surgical History: Reports: Oral Surgery Cardiovascular Surgical History: Reports: None Respiratory Surgical History: Reports: None GI Surgical History: Reports: Bariatric Procedure, Cholecystectomy, Colonoscopy, EGD Female Surgical History: Reports: Section, Hysterectomy, Tubal Ligation Endocrine Surgical History: Reports: None Musculoskeletal Surgical History: Reports: Other (See Below) Other Musculoskeletal Surgeries/Procedures:: Ankle plate/pin - hdwe removed Social & Family History - Family History Family Medical History: No Pertinent Family History Cardiac: Reports: [place] - Tobacco Use Tobacco Use Status *Q: Current Some Day Tobacco User Years of Tobacco use: 8 Packs/Tins Daily: 0.5 Used Tobacco, but Quit: Yes Month/Year Tobacco Last Used: 07/25 - Caffeine Use Caffeine Use: Reports: Soda Caffeine Use Comment: occasional soda - Recreational Drug Use Recreational Drug Use: No H&P Review of Systems - Review of Systems: Review Of Systems: See Below General: Reports: Weakness, Fatigue HEENT: Reports: No Symptoms Pulmonary: Reports: No Symptoms Cardiovascular: Reports: No Symptoms Gastrointestinal: Reports: Abdominal Pain, Anorexia, Decreased Appetite, Distension, Nausea Genitourinary: Reports: No Symptoms Musculoskeletal: Reports: No Symptoms Skin: Reports: Dryness Psychiatric: Reports: No Symptoms Neurological: Reports: No Symptoms Hematologic/Lymphatic: Reports: No Symptoms Immunologic: Reports: No Symptoms Exam - Exam Exam: See Below - Vital Signs Vital Signs: Last Vital Signs Temp 96.1 F L 11/28/20 03:46 Pulse 72 11/28/20 03:46 Resp 16 11/28/20 03:46 BP 130/70 11/28/20 03:46 Pulse Ox 100 11/28/20 03:46 Weight: 163 lb - Exam Quality Assessment: DVT Prophylaxis General: Alert, Oriented, Cooperative, Mild Distress HEENT: PERRLA Neck: Supple, Trachea Midline Lungs: Clear to Auscultation, Normal Respiratory Effort Cardiovascular: Regular Rate, Regular Rhythm GI/Abdominal Exam: Distended, Tender (generalized mild tenderness with increased in the mid epigastric area ) (Female) Exam: Deferred Rectal (Female) Exam: Deferred Back Exam: Normal Inspection, Full Range of Motion Extremities: Normal Inspection, Pedal Edema (mild) Skin: Warm, Dry, Intact Neurological: Cranial Nerves Intact, Reflexes Equal Bilateral Neuro Extensive - Mental Status: Alert, Oriented x3, Normal Mood/Affect, Normal Cognition, Memory Intact Neuro Extensive - Motor, Sensory, Reflexes: CN II-XII Intact Psychiatric: Alert, Normal Affect, Normal Mood - Patient Data Lab Results Last 24 hrs: Laboratory Results - last 24 hr 11/27/20 11/27/20 11/27/20 Range/Units 22:45 22:45 22:45 WBC 4.7 (4.5-11.0) K/uL RBC 3.12 L (3.30-5.50) M/uL Hgb 11.4 L (12.0-15.0) g/dL Hct 31.8 L (36.0-48.0) % MCV 102 H (80-98) fL MCH 37 H (27-31) pg MCHC 36 (32-36) % Plt Count 130 L (150-400) K/uL Neut % (Auto) 67.7 H (36-66) % Lymph % (Auto) 19.8 L (24-44) % Bland % (Auto) 11.7 H (2-6) % Eos % (Auto) 0.6 L (2-4) % Baso % (Auto) 0.2 (0-1) % Sodium 117 L* (140-148) mmol/L Potassium 4.2 (3.6-5.2) mmol/L Chloride 82 L (100-108) mmol/L Carbon Dioxide 26 (21-32) mmol/L Anion Gap 13.2 (5.0-14.0) mmol/L BUN 8 D (7-18) mg/dL Creatinine 0.9 (0.6-1.0) mg/dL Est Cr Clr Drug Dosing 63.92 mL/min Estimated GFR (MDRD) > 60 (>60) Glucose 91 (74-106) mg/dL Lactic Acid 1.7 (0.4-2.0) mmol/L Calcium 9.5 (8.5-10.1) mg/dL Magnesium (1.8-2.4) mg/dL Total Bilirubin 2.2 H D (0.2-1.0) mg/dL AST 86 H (15-37) U/L ALT 39 (12-78) U/L Alkaline Phosphatase 156 H (46-116) U/L Total Protein 8.1 (6.4-8.2) g/dL Albumin 3.3 L (3.4-5.0) g/dL Globulin 4.8 H (2.3-3.5) g/dL Albumin/Globulin Ratio 0.7 L (1.2-2.2) Lipase 93 (73-393) U/L SARS-CoV-2 RNA (EDGAR) (NEGATIVE) 11/28/20 11/28/20 11/28/20 Range/Units 00:12 02:10 02:14 WBC (4.5-11.0) K/uL RBC (3.30-5.50) M/uL Hgb (12.0-15.0) g/dL Hct (36.0-48.0) % MCV (80-98) fL MCH (27-31) pg MCHC (32-36) % Plt Count (150-400) K/uL Neut % (Auto) (36-66) % Lymph % (Auto) (24-44) % Bland % (Auto) (2-6) % Eos % (Auto) (2-4) % Baso % (Auto) (0-1) % Sodium 118 L* (140-148) mmol/L Potassium (3.6-5.2) mmol/L Chloride (100-108) mmol/L Carbon Dioxide (21-32) mmol/L Anion Gap (5.0-14.0) mmol/L BUN (7-18) mg/dL Creatinine (0.6-1.0) mg/dL Est Cr Clr Drug Dosing mL/min Estimated GFR (MDRD) (>60) Glucose (74-106) mg/dL Lactic Acid (0.4-2.0) mmol/L Calcium (8.5-10.1) mg/dL Magnesium 1.5 L (1.8-2.4) mg/dL Total Bilirubin (0.2-1.0) mg/dL AST (15-37) U/L ALT (12-78) U/L Alkaline Phosphatase (46-116) U/L Total Protein (6.4-8.2) g/dL Albumin (3.4-5.0) g/dL Globulin (2.3-3.5) g/dL Albumin/Globulin Ratio (1.2-2.2) Lipase (73-393) U/L SARS-CoV-2 RNA (EDGAR) Negative (NEGATIVE) 11/28/20 Range/Units 04:21 WBC (4.5-11.0) K/uL RBC (3.30-5.50) M/uL Hgb (12.0-15.0) g/dL Hct (36.0-48.0) % MCV (80-98) fL MCH (27-31) pg MCHC (32-36) % Plt Count (150-400) K/uL Neut % (Auto) (36-66) % Lymph % (Auto) (24-44) % Bland % (Auto) (2-6) % Eos % (Auto) (2-4) % Baso % (Auto) (0-1) % Sodium 117 L* (140-148) mmol/L Potassium 4.2 (3.6-5.2) mmol/L Chloride 84 L (100-108) mmol/L Carbon Dioxide 27 (21-32) mmol/L Anion Gap 10.2 (5.0-14.0) mmol/L BUN 9 (7-18) mg/dL Creatinine 1.0 (0.6-1.0) mg/dL Est Cr Clr Drug Dosing 60.06 mL/min Estimated GFR (MDRD) 59 L (>60) Glucose 92 (74-106) mg/dL Lactic Acid (0.4-2.0) mmol/L Calcium 8.4 L (8.5-10.1) mg/dL Magnesium (1.8-2.4) mg/dL Total Bilirubin (0.2-1.0) mg/dL AST (15-37) U/L ALT (12-78) U/L Alkaline Phosphatase (46-116) U/L Total Protein (6.4-8.2) g/dL Albumin (3.4-5.0) g/dL Globulin (2.3-3.5) g/dL Albumin/Globulin Ratio (1.2-2.2) Lipase (73-393) U/L SARS-CoV-2 RNA (EDGAR) (NEGATIVE) Result Diagrams: 11/27/20 22:45 11/28/20 04:21 Sepsis Event Note - Evaluation Sepsis Screening Result: No Definite Risk - Focused Exam Vital Signs: Vital Signs Temp Temp Pulse Resp BP Pulse Ox 11/28/20 03:46 96.1 F L 72 16 130/70 100 11/28/20 02:58 70 16 111/62 99 11/28/20 02:28 74 15 111/68 98 11/28/20 01:28 81 15 122/71 98 11/28/20 01:17 77 14 116/72 99 11/28/20 00:58 79 15 125/63 99 11/28/20 00:17 77 14 107/64 99 11/27/20 23:18 78 122/73 99 11/27/20 22:59 73 116/72 99 11/27/20 22:31 97.1 F 70 16 136/83 100 11/27/20 22:23 97.1 F 70 16 136/83 100 Consult PN Assessment/Plan POD#: 0 Procedures: Procedures ABD PARACENTESIS W/IMAGING (11/08/20) APPLY FOREARM SPLINT (11/20/17) ASSAY OF AMMONIA (10/12/20) ASSAY OF COPPER (07/13/18) ASSAY OF FERRITIN (10/04/20) ASSAY OF FOLIC ACID SERUM (07/13/18) ASSAY OF LACTIC ACID (10/04/20) ASSAY OF LIPASE (11/07/20) ASSAY OF MAGNESIUM (11/07/20) ASSAY OF NATRIURETIC PEPTIDE (07/13/18) ASSAY OF SERUM POTASSIUM (09/13/20) ASSAY OF TROPONIN QUANT (07/13/18) ASSAY OF VITAMIN A (07/13/18) ASSAY OF ZINC (07/13/18) ASSAY THYROID STIM HORMONE (10/12/20) BLOOD CULTURE FOR BACTERIA (10/04/20) BLOOD TRANSFUSION SERVICE (07/13/18) BLOOD TYPING SEROLOGIC ABO (07/13/18) BLOOD TYPING SEROLOGIC RH(D) (07/13/18) BREAST TOMOSYNTHESIS BI (07/08/20) C DIFF AMPLIFIED PROBE (08/28/18) C-REACTIVE PROTEIN (10/12/20) CHORIONIC GONADOTROPIN TEST (07/14/18) COLONOSCOPY AND BIOPSY (11/01/20) COLONOSCOPY W/LESION REMOVAL (11/01/20) COMPATIBILITY TEST ANTIGLOB (07/13/18) COMPATIBILITY TEST SPIN (07/13/18) COMPLETE CBC AUTOMATED (10/12/20) COMPLETE CBC W/AUTO DIFF WBC (11/07/20) COMPREHEN METABOLIC PANEL (11/07/20) CT ABD & PELV W/CONTRAST (08/11/18) CULTURE AEROBIC IDENTIFY (08/01/20) CULTURE SCREEN ONLY (07/28/16) DRAINAGE OF GUM LESION (05/23/16) DRUG TEST PRSMV CHEM ANLYZR (10/12/20) DRUG TEST PRSMV DIR OPT OBS (10/12/20) ECHO EXAM OF ABDOMEN (01/17/20) EGD BIOPSY SINGLE/MULTIPLE (07/28/16) ELECTROCARDIOGRAM TRACING (08/01/20) EMERGENCY DEPT VISIT (11/07/20) EMERGENCY DEPT VISIT (08/01/20) EMERGENCY DEPT VISIT (04/15/19) EMERGENCY DEPT VISIT (05/23/16) EMERGENCY DEPT VISIT (12/02/15) EXTREMITY STUDY (11/07/20) HEMOGLOBIN (07/15/18) HOT OR COLD PACKS THERAPY (01/02/19) HYDRATE IV INFUSION ADD-ON (08/08/16) IRON BINDING TEST (10/04/20) MANUAL THERAPY 1/> REGIONS (07/12/18) METABOLIC PANEL TOTAL CA (10/12/20) MICROBE SUSCEPTIBLE FRENCH (10/12/20) MRI JNT OF LWR EXTRE W/O DYE (03/15/18) MRI JOINT UPR EXTREM W/O DYE (04/21/18) MRI UPPER EXTREMITY W/O DYE (04/14/18) ORTHOTIC MGMT&TRAING 1ST ENC (05/30/18) OT EVAL LOW COMPLEX 30 MIN (01/02/19) OT EVAL MOD COMPLEX 45 MIN (05/30/18) PARAFFIN BATH THERAPY (07/12/18) PHYSICAL PERFORMANCE TEST (11/10/18) PROCALCITONIN (PCT) (10/04/20) RBC ANTIBODY SCREEN (07/13/18) REMOVE SKIN NERVE LESION (11/25/18) ROUTINE VENIPUNCTURE (11/07/20) RPR VENTRAL CASE INIT REDUC (11/25/18) SARS-COV-2 COVID-19 AMP PRB (10/30/20) SCR MAMMO BI INCL CAD (07/08/20) THER/DIAG CONCURRENT INF (10/12/20) THER/PROPH/DIAG INJ IV PUSH (07/13/18) THER/PROPH/DIAG IV INF ADDON (10/12/20) THER/PROPH/DIAG IV INF INIT (10/12/20) THERAPEUTIC EXERCISES (06/30/18) TISSUE EXAM BY PATHOLOGIST (11/25/18) TRANSVAGINAL US NON-OB (07/14/18) TX/PRO/DX INJ NEW DRUG ADDON (10/04/20) ULTRASOUND THERAPY (07/12/18) URINALYSIS AUTO W/SCOPE (10/12/20) URINE BACTERIA CULTURE (10/12/20) URINE CULTURE/COLONY COUNT (10/12/20) US EXAM PELVIC COMPLETE (07/14/18) VITAMIN B-12 (07/13/18) VITAMIN D 25 HYDROXY (07/13/18) WORK HARDENING (03/13/19) WORK HARDENING ADD-ON (01/02/19) X-RAY EXAM CHEST 1 VIEW (07/13/18) X-RAY EXAM OF HAND (11/20/17) X-RAY EXAM OF SHOULDER (10/16/15) (1) Hypomagnesemia SNOMED Code(s): 826229123 Code(s): E83.42 - HYPOMAGNESEMIA Current Visit: No (2) Cirrhosis of liver SNOMED Code(s): 69672834 Code(s): K74.60 - UNSPECIFIED CIRRHOSIS OF LIVER Current Visit: No (3) Hepatorenal syndrome SNOMED Code(s): 72670759 Code(s): K76.7 - HEPATORENAL SYNDROME Priority: High Current Visit: No Problem List Initiated/Reviewed/Updated: Yes My Orders Last 24 Hours: My Active Orders 11/28/20 07:04 Consult to Physician [CONS] Routine 11/28/20 07:06 Notify Provider Consults [RC] ASDIRECTED Verify Patient Consent Obtain [RC] ASDIRECTED 11/28/20 09:00 Magnesium Sulfate/Water [Magnesium Sulfate in Water 2 GM/50 ML] 2 gm in 50 ml IV Q6H 11/29/20 04:00 CBC W/O DIFF,HEMOGRAM [HEME] Timed COMPREHENSIVE METABOLIC PN,CMP [CHEM] Timed MAGNESIUM [CHEM] Timed PHOSPHORUS [CHEM] Timed Will evaluate prn or in AM Expected hospitalization 3 nights and 4 days. Kathryn Harris 11/28/2020
[2020-11-28] MEDS: Magnesium Sulfate/Water 2 GM/50 ML BAG IV SCH ×3 (09:13→20:20)
[2020-11-28] MEDS: HYDROmorphone 2 MG Tab PO PRN ×2 (09:52→20:10)
--- NOTE | 2020-11-28 10:50 | PCM.CONS ---
H&P History of Present Illness - General Date of Service: 11/28/20 Admit Problem/Dx: Admission Diagnosis/Problem Admission Diagnosis/Problem Hyponatremia Source of Information: Patient, Provider History Limitations: Reports: No Limitations - History of Present Illness Initial Comments - Free Text/Narative: CC: My stomach has been hurting HPI: Ewelina was admitted last night for management of upper abdominal pain and hyponatremia. I was asked to see her this morning by Dr. Gonsalez regarding hyponatremia. She reports a history of cirrhosis. About 2 months ago she noticed that when she was starting to gain weight and over the next few weeks had a significant and nearly 30 pound weight gain. She was evaluated by her information systems security analyst who increased her dose of diuretics because 2 attempts at paracentesis were unsuccessful. Over the next several weeks she lost all of the weight that she had gained and possibly a little bit more. Her diuretics were decreased but not back to her baseline level. Over the past several days she has had progressive abdominal pain. Initially it was lower abdominal pain but has progressed and moved up to more of an upper abdominal/epigastric pain. The pain is cramping most of the time but she does have some sharp shooting pains. Pain is quite severe at times though often is about moderate in nature. She has been using some [id number] things at home without much improvement. No obvious triggers to make the pain worse such as movement or eating. She has not had pain quite like this in the past. She has had some nausea but does not report vomiting. Chills but no fevers. Not much to eat in the past couple of days as the pain has progressed. She feels short of breath because of the pain. Upper Abdomen Pain Score (Numeric/FACES): 5 - Related Data Allergies/Adverse Reactions: Allergies Allergy/AdvReac Type Severity Reaction Status Date / Time doxycycline Allergy Intermediate Rash Verified 11/28/20 03:19 erythromycin base Allergy Intermediate Rash Verified 11/28/20 03:19 procaine [From Novocain] Allergy Intermediate Rash Verified 11/28/20 03:19 Home Medications: Home Meds Multivitamin [Multi-Vitamin Daily] 1 tab PO DAILY 12/02/15 [History] Gabapentin [Neurontin] 600 mg PO TID 07/13/18 [History] Albuterol Sulfate [Proair Respiclick] 1 - 2 puff IH Q4HR PRN 08/10/18 [History] Cyanocobalamin (Vitamin B-12) [Vitamin B-12] 1,000 mcg SL DAILY 08/10/18 [History] Magnesium 400 mg PO BID 11/23/18 [History] Citalopram [Citalopram HBr] 20 mg PO DAILY #30 tablet 04/14/19 [Rx] Lidocaine/Prilocaine [EMLA Crm] 1 applic TP ASDIRECTED PRN 10/30/20 [History] Ondansetron [Zofran ODT] 4 mg PO Q6H PRN 10/30/20 [History] SUMAtriptan succinate [Imitrex] 100 mg PO ASDIRECTED PRN 10/30/20 [History] traZODone 50 mg PO BEDTIME 10/30/20 [History] Furosemide [Lasix] 40 mg PO BID 11/07/20 [History] Potassium Chloride [Potassium Chloride Solution] 20 meq PO TID 11/07/20 [History] Spironolactone [Aldactone] 100 mg PO BID 11/07/20 [History] Dicyclomine [Bentyl] 10 mg PO TID 11/19/20 [History] Past Medical History HEENT History: Reports: None Cardiovascular History: Reports: Hypertension Respiratory History: Reports: Asthma Gastrointestinal History: Reports: GERD, Other (See Below) Other Gastrointestinal History: [id number] Genitourinary History: Reports: Other (See Below) Other Genitourinary History: 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 fistula [employer] History: Reports: Dysfunctional Uterine Bleeding, Musculoskeletal History: Reports: Fracture Neurological History: Reports: Migraines Psychiatric History: Reports: Addiction, Anxiety, Depression Endocrine/Metabolic History: Reports: Hypothyroidism, Vitamin D Deficiency Hematologic History: Reports: Anemia, B12 Deficiency, Blood Transfusion(s), Iron Deficiency, Other (See Below) Other Hematologic History: vitamin D def Dermatologic History: Reports: Other (See Below) Other Dermatologic History: sores on face, neck and back - Infectious Disease History Infectious Disease History: Reports: Chicken Pox, Measles - Past Surgical History HEENT Surgical History: Reports: Oral Surgery Cardiovascular Surgical History: Reports: None Respiratory Surgical History: Reports: None GI Surgical History: Reports: Bariatric Procedure, Cholecystectomy, Colonoscopy, EGD Female Surgical History: Reports: Section, Hysterectomy, Tubal Ligation Endocrine Surgical History: Reports: None Musculoskeletal Surgical History: Reports: Other (See Below) Other Musculoskeletal Surgeries/Procedures:: Ankle plate/pin - hdwe removed Social & Family History - Family History Family Medical History: No Pertinent Family History Cardiac: Reports: ME - Tobacco Use Tobacco Use Status *Q: Current Some Day Tobacco User Years of Tobacco use: 8 Packs/Tins Daily: 0.5 Used Tobacco, but Quit: Yes Month/Year Tobacco Last Used: 07/25 - Caffeine Use Caffeine Use: Reports: Soda Caffeine Use Comment: occasional soda - Recreational Drug Use Recreational Drug Use: No H&P Review of Systems - Review of Systems: Review Of Systems: See Below Free Text/Narrative: A complete 12 point review of systems was obtained. Pertinent positives and negatives are noted in the history of present illness. All other systems were reviewed and were negative except as noted. Exam - Exam Exam: See Below - Vital Signs Vital Signs: Last Vital Signs Temp 35.2 C L 11/28/20 07:35 Pulse 69 11/28/20 07:35 Resp 16 11/28/20 07:35 BP 118/66 11/28/20 07:35 Pulse Ox 100 11/28/20 07:35 Weight: 73.936 kg - Exam Quality Assessment: No: Supplemental Oxygen General: Alert, Oriented, Cooperative. No: Mild Distress HEENT: Conjunctiva Clear. No: Mucosa Moist & [place] (dry), Scleral Icterus Neck: Supple, Trachea Midline. No: JVD Lungs: Clear to Auscultation, Normal Respiratory Effort Cardiovascular: Regular Rate, Regular Rhythm. No: Systolic Murmur GI/Abdominal Exam: Normal Bowel Sounds, Soft, No Distention, Tender (mild diffuse). No: Guarding Back Exam: Normal Inspection, Full Range of Motion Extremities: No Pedal Edema. No: Increased Warmth Peripheral Pulses: 2+: Dorsalis Pedis (L), Dorsalis Pedis (R) Skin: Warm, Dry Neuro Extensive - Mental Status: Alert, Oriented x3, Nl Response to Commands Neuro Extensive - Motor, Sensory, Reflexes: No: Dysarthria, Abnormal Motor, Tremor Psychiatric: Alert, Normal Affect - Patient Data Lab Results Last 24 hrs: Laboratory Results - last 24 hr 11/27/20 11/27/20 11/27/20 Range/Units 22:45 22:45 22:45 WBC 4.7 (4.5-11.0) K/uL RBC 3.12 L (3.30-5.50) M/uL Hgb 11.4 L (12.0-15.0) g/dL Hct 31.8 L (36.0-48.0) % MCV 102 H (80-98) fL MCH 37 H (27-31) pg MCHC 36 (32-36) % Plt Count 130 L (150-400) K/uL Neut % (Auto) 67.7 H (36-66) % Lymph % (Auto) 19.8 L (24-44) % [place] % (Auto) 11.7 H (2-6) % Eos % (Auto) 0.6 L (2-4) % Baso % (Auto) 0.2 (0-1) % Sodium 117 L* (140-148) mmol/L Potassium 4.2 (3.6-5.2) mmol/L Chloride 82 L (100-108) mmol/L Carbon Dioxide 26 (21-32) mmol/L Anion Gap 13.2 (5.0-14.0) mmol/L BUN 8 D (7-18) mg/dL Creatinine 0.9 (0.6-1.0) mg/dL Est Cr Clr Drug Dosing 63.92 mL/min Estimated GFR (MDRD) > 60 (>60) Glucose 91 (74-106) mg/dL Lactic Acid 1.7 (0.4-2.0) mmol/L Calcium 9.5 (8.5-10.1) mg/dL Magnesium (1.8-2.4) mg/dL Total Bilirubin 2.2 H D (0.2-1.0) mg/dL AST 86 H (15-37) U/L ALT 39 (12-78) U/L Alkaline Phosphatase 156 H (46-116) U/L Total Protein 8.1 (6.4-8.2) g/dL Albumin 3.3 L (3.4-5.0) g/dL Globulin 4.8 H (2.3-3.5) g/dL Albumin/Globulin Ratio 0.7 L (1.2-2.2) Lipase 93 (73-393) U/L Urine Color (YELLOW) Urine Appearance (CLEAR) Urine pH (5.0-8.0) Ur Specific [place] (1.008-1.030) Urine Protein (NEGATIVE) mg/dL Urine Glucose (UA) (NEGATIVE) mg/dL Urine Ketones (NEGATIVE) mg/dL Urine Occult Blood (NEGATIVE) Urine Nitrite (NEGATIVE) Urine Bilirubin (NEGATIVE) Urine Urobilinogen (0.2-1.0) EU/dL Ur Leukocyte Esterase (NEGATIVE) Urine RBC (0-5) Urine WBC (0-5) Ur Epithelial Cells Amorphous Sediment Urine Bacteria Urine Mucus Urine Other SARS-CoV-2 RNA (EDGAR) (NEGATIVE) 11/28/20 11/28/20 11/28/20 Range/Units 00:12 02:10 02:14 WBC (4.5-11.0) K/uL RBC (3.30-5.50) M/uL Hgb (12.0-15.0) g/dL Hct (36.0-48.0) % MCV (80-98) fL MCH (27-31) pg MCHC (32-36) % Plt Count (150-400) K/uL Neut % (Auto) (36-66) % Lymph % (Auto) (24-44) % [place] % (Auto) (2-6) % Eos % (Auto) (2-4) % Baso % (Auto) (0-1) % Sodium 118 L* (140-148) mmol/L Potassium (3.6-5.2) mmol/L Chloride (100-108) mmol/L Carbon Dioxide (21-32) mmol/L Anion Gap (5.0-14.0) mmol/L BUN (7-18) mg/dL Creatinine (0.6-1.0) mg/dL Est Cr Clr Drug Dosing mL/min Estimated GFR (MDRD) (>60) Glucose (74-106) mg/dL Lactic Acid (0.4-2.0) mmol/L Calcium (8.5-10.1) mg/dL Magnesium 1.5 L (1.8-2.4) mg/dL Total Bilirubin (0.2-1.0) mg/dL AST (15-37) U/L ALT (12-78) U/L Alkaline Phosphatase (46-116) U/L Total Protein (6.4-8.2) g/dL Albumin (3.4-5.0) g/dL Globulin (2.3-3.5) g/dL Albumin/Globulin Ratio (1.2-2.2) Lipase (73-393) U/L Urine Color (YELLOW) Urine Appearance (CLEAR) Urine pH (5.0-8.0) Ur Specific [place] (1.008-1.030) Urine Protein (NEGATIVE) mg/dL Urine Glucose (UA) (NEGATIVE) mg/dL Urine Ketones (NEGATIVE) mg/dL Urine Occult Blood (NEGATIVE) Urine Nitrite (NEGATIVE) Urine Bilirubin (NEGATIVE) Urine Urobilinogen (0.2-1.0) EU/dL Ur Leukocyte Esterase (NEGATIVE) Urine RBC (0-5) Urine WBC (0-5) Ur Epithelial Cells Amorphous Sediment Urine Bacteria Urine Mucus Urine Other SARS-CoV-2 RNA (EDGAR) Negative (NEGATIVE) 11/28/20 11/28/20 Range/Units 04:21 07:15 WBC (4.5-11.0) K/uL RBC (3.30-5.50) M/uL Hgb (12.0-15.0) g/dL Hct (36.0-48.0) % MCV (80-98) fL MCH (27-31) pg MCHC (32-36) % Plt Count (150-400) K/uL Neut % (Auto) (36-66) % Lymph % (Auto) (24-44) % [place] % (Auto) (2-6) % Eos % (Auto) (2-4) % Baso % (Auto) (0-1) % Sodium 117 L* (140-148) mmol/L Potassium 4.2 (3.6-5.2) mmol/L Chloride 84 L (100-108) mmol/L Carbon Dioxide 27 (21-32) mmol/L Anion Gap 10.2 (5.0-14.0) mmol/L BUN 9 (7-18) mg/dL Creatinine 1.0 (0.6-1.0) mg/dL Est Cr Clr Drug Dosing 60.06 mL/min Estimated GFR (MDRD) 59 L (>60) Glucose 92 (74-106) mg/dL Lactic Acid (0.4-2.0) mmol/L Calcium 8.4 L (8.5-10.1) mg/dL Magnesium (1.8-2.4) mg/dL Total Bilirubin (0.2-1.0) mg/dL AST (15-37) U/L ALT (12-78) U/L Alkaline Phosphatase (46-116) U/L Total Protein (6.4-8.2) g/dL Albumin (3.4-5.0) g/dL Globulin (2.3-3.5) g/dL Albumin/Globulin Ratio (1.2-2.2) Lipase (73-393) U/L Urine Color Yellow (YELLOW) Urine Appearance Slightly cloudy A (CLEAR) Urine pH 5.5 (5.0-8.0) Ur Specific [place] 1.010 (1.008-1.030) Urine Protein Trace H (NEGATIVE) mg/dL Urine Glucose (UA) Negative (NEGATIVE) mg/dL Urine Ketones Negative (NEGATIVE) mg/dL Urine Occult Blood Negative (NEGATIVE) Urine Nitrite Negative (NEGATIVE) Urine Bilirubin Negative (NEGATIVE) Urine Urobilinogen 1.0 (0.2-1.0) EU/dL Ur Leukocyte Esterase Negative (NEGATIVE) Urine RBC Not seen (0-5) Urine WBC 0-5 (0-5) Ur Epithelial Cells Few Amorphous Sediment Not seen Urine Bacteria Many Urine Mucus Not seen Urine Other See note SARS-CoV-2 RNA (EDGAR) (NEGATIVE) Result Diagrams: 11/27/20 22:45 11/28/20 04:21 Imaging Impressions Last 24 hrs: CT abd/pelvis-these images were personally reviewed-noted are changes of previous gastric bypass surgery and cholecystectomy. Also noted is a 2.4 cm lesion in the head of the pancreas. This is of low density and is new compared to previous imaging. Sepsis Event Note - Evaluation Sepsis Screening Result: No Definite Risk - Focused Exam Vital Signs: Vital Signs Temp Pulse Resp BP Pulse Ox 11/28/20 07:35 35.2 C L 69 16 118/66 100 11/28/20 03:46 35.6 C L 72 16 130/70 100 11/28/20 02:58 70 16 111/62 99 11/28/20 02:28 74 15 111/68 98 11/28/20 01:28 81 15 122/71 98 11/28/20 01:17 77 14 116/72 99 11/28/20 00:58 79 15 125/63 99 11/28/20 00:17 77 14 107/64 99 11/27/20 23:18 78 122/73 99 11/27/20 22:59 73 116/72 99 *Q Meaningful Use (ADM) - VTE Risk Assess *Q Each Risk Factor Represents 1 Point: Age 41 - 59 years, Obesity ( BMI > 25 kg/m2) Total Score 1 Point Risk Factors: 2 Each Risk Factor Represents 2 Points: None Total Score 2 Point Risk Factors: 0 Each Risk Factor Represents 3 Points: None Total Score 3 Point Risk Factors: 0 Each Risk Factor Represents 5 Points: None Total Score 5 Point Risk Factors: 0 Venous Thromboembolism Risk Factor Score *Q: 2 Consult PN Assessment/Plan Procedures: Procedures ABD PARACENTESIS W/IMAGING (11/08/20) APPLY FOREARM SPLINT (11/20/17) ASSAY OF AMMONIA (10/12/20) ASSAY OF COPPER (07/13/18) ASSAY OF FERRITIN (10/04/20) ASSAY OF FOLIC ACID SERUM (07/13/18) ASSAY OF LACTIC ACID (10/04/20) ASSAY OF LIPASE (11/07/20) ASSAY OF MAGNESIUM (11/07/20) ASSAY OF NATRIURETIC PEPTIDE (07/13/18) ASSAY OF SERUM POTASSIUM (09/13/20) ASSAY OF TROPONIN QUANT (07/13/18) ASSAY OF VITAMIN A (07/13/18) ASSAY OF ZINC (07/13/18) ASSAY THYROID STIM HORMONE (10/12/20) BLOOD CULTURE FOR BACTERIA (10/04/20) BLOOD TRANSFUSION SERVICE (07/13/18) BLOOD TYPING SEROLOGIC ABO (07/13/18) BLOOD TYPING SEROLOGIC RH(D) (07/13/18) BREAST TOMOSYNTHESIS BI (07/08/20) C DIFF AMPLIFIED PROBE (08/28/18) C-REACTIVE PROTEIN (10/12/20) CHORIONIC GONADOTROPIN TEST (07/14/18) COLONOSCOPY AND BIOPSY (11/01/20) COLONOSCOPY W/LESION REMOVAL (11/01/20) COMPATIBILITY TEST ANTIGLOB (07/13/18) COMPATIBILITY TEST SPIN (07/13/18) COMPLETE CBC AUTOMATED (10/12/20) COMPLETE CBC W/AUTO DIFF WBC (11/07/20) COMPREHEN METABOLIC PANEL (11/07/20) CT ABD & PELV W/CONTRAST (08/11/18) CULTURE AEROBIC IDENTIFY (08/01/20) CULTURE SCREEN ONLY (07/28/16) DRAINAGE OF GUM LESION (05/23/16) DRUG TEST PRSMV CHEM ANLYZR (10/12/20) DRUG TEST PRSMV DIR OPT OBS (10/12/20) ECHO EXAM OF ABDOMEN (01/17/20) EGD BIOPSY SINGLE/MULTIPLE (07/28/16) ELECTROCARDIOGRAM TRACING (08/01/20) EMERGENCY DEPT VISIT (11/07/20) EMERGENCY DEPT VISIT (08/01/20) EMERGENCY DEPT VISIT (04/15/19) EMERGENCY DEPT VISIT (05/23/16) EMERGENCY DEPT VISIT (12/02/15) EXTREMITY STUDY (11/07/20) HEMOGLOBIN (07/15/18) HOT OR COLD PACKS THERAPY (01/02/19) HYDRATE IV INFUSION ADD-ON (08/08/16) IRON BINDING TEST (10/04/20) MANUAL THERAPY 1/> REGIONS (07/12/18) METABOLIC PANEL TOTAL CA (10/12/20) MICROBE SUSCEPTIBLE FRENCH (10/12/20) MRI JNT OF LWR EXTRE W/O DYE (03/15/18) MRI JOINT UPR EXTREM W/O DYE (04/21/18) MRI UPPER EXTREMITY W/O DYE (04/14/18) ORTHOTIC MGMT&TRAING 1ST ENC (05/30/18) OT EVAL LOW COMPLEX 30 MIN (01/02/19) OT EVAL MOD COMPLEX 45 MIN (05/30/18) PARAFFIN BATH THERAPY (07/12/18) PHYSICAL PERFORMANCE TEST (11/10/18) PROCALCITONIN (PCT) (10/04/20) RBC ANTIBODY SCREEN (07/13/18) REMOVE SKIN NERVE LESION (11/25/18) ROUTINE VENIPUNCTURE (11/07/20) RPR VENTRAL CASE INIT REDUC (11/25/18) SARS-COV-2 COVID-19 AMP PRB (10/30/20) SCR MAMMO BI INCL CAD (07/08/20) THER/DIAG CONCURRENT INF (10/12/20) THER/PROPH/DIAG INJ IV PUSH (07/13/18) THER/PROPH/DIAG IV INF ADDON (10/12/20) THER/PROPH/DIAG IV INF INIT (10/12/20) THERAPEUTIC EXERCISES (06/30/18) TISSUE EXAM BY PATHOLOGIST (11/25/18) TRANSVAGINAL US NON-OB (07/14/18) TX/PRO/DX INJ NEW DRUG ADDON (10/04/20) ULTRASOUND THERAPY (07/12/18) URINALYSIS AUTO W/SCOPE (10/12/20) URINE BACTERIA CULTURE (10/12/20) URINE CULTURE/COLONY COUNT (10/12/20) US EXAM PELVIC COMPLETE (07/14/18) VITAMIN B-12 (07/13/18) VITAMIN D 25 HYDROXY (07/13/18) WORK HARDENING (03/13/19) WORK HARDENING ADD-ON (01/02/19) X-RAY EXAM CHEST 1 VIEW (07/13/18) X-RAY EXAM OF HAND (11/20/17) X-RAY EXAM OF SHOULDER (10/16/15) (1) Hyponatremia SNOMED Code(s): 09931579 Code(s): E87.1 - HYPO-OSMOLALITY AND HYPONATREMIA Priority: High Current Visit: Yes (2) Cirrhosis of liver SNOMED Code(s): 54374379 Code(s): K74.60 - UNSPECIFIED CIRRHOSIS OF LIVER Current Visit: No Qualifiers: Hepatic cirrhosis type: alcoholic cirrhosis Ascites presence: without ascites Qualified Code(s): K70.30 - Alcoholic cirrhosis of liver without ascites Problem List Initiated/Reviewed/Updated: Yes My Orders Last 24 Hours: My Active Orders 11/28/20 15:00 SODIUM,NA [CHEM] Routine Plan: ASSESSMENT AND RECOMMENDATIONS - Hyponatremia-suspect hypovolemic hyponatremia in the setting of chronic diuretic use. Suspect a degree of overdiuresis and intravascular volume depletion given that she is taking higher doses than she had been previously and has had a significant decrease in weight and edema. Level had been stable as of earlier this morning but I anticipate this will improve with additional IV fluid hydration. Given lack of symptoms even at this low level I suspect this has been building over the last several weeks. Creatinine is mildly elevated from baseline but does not meet criteria for acute kidney injury. Examination suggests moderate dehydration. -Continue IV fluids -Hold diuretics -Recheck sodium this afternoon and as indicated after that Epigastric abdominal pain-CT scan did document a hypodense lesion in the head of the pancreas. The patient reports that this was seen at recent imaging with her information systems security analyst at [facility]. The plan from the gastroenterology folks was to repeat the scan in a few months and additional work-up is indicated from there. Endoscopy is being considered for work-up of her pain while hospitalized here. -Consider upper endoscopy -Outpatient follow-up with her information systems security analyst Jim Correia MD Requesting Provider: Dr. Gonsalez Date Consult Requested: 11/28/20 Reason for Consult: Hyponatremia Patient History Reviewed: Yes Admission H&P Reviewed: No (Not available) Notified Requestor: No Time Spent (in minutes): 60
[2020-11-28] MEDS ORDERED: Sodium Chloride 3% 500 ML IV SCH (16:15)
[2020-11-28] MEDS: Desmopressin 4 MCG/1 ML Amp SUBCUT SCH (17:32)
[2020-11-29] MEDS: Desmopressin 4 MCG/1 ML Amp SUBCUT SCH ×3 (00:06→16:38)
[2020-11-29] MEDS: Magnesium Sulfate/Water 2 GM/50 ML BAG IV SCH (03:23)
[2020-11-29] MEDS ORDERED: fentaNYL 100 MCG/2 ML SDV ONE (07:14)
[2020-11-29] MEDS ORDERED: Propofol 200 MG/20 ML SDV ONE (07:14)
[2020-11-29] MEDS ORDERED: Midazolam 1 MG/ML 2 ML SDV ONE (07:14)
[2020-11-29] MEDS ORDERED: Potassium Phosphates 45 MMOLE in Sodium Chloride 0.9% 250 ML IV SCH (07:15)
[2020-11-29] MEDS ORDERED: Pantoprazole 40 MG Vial IVPUSH ONE (07:45)
[2020-11-29] MEDS ORDERED: Sodium Chloride 3% 500 ML IV SCH (08:00)
--- NOTE | 2020-11-29 08:03 | PN ---
DATE OF SERVICE: 11/29/2020 SUBJECTIVE: Ewelina is n.p.o. She will be having an upper endoscopy this morning. Sodium remains at 119, bilirubin is 1.5, potassium is 3.9, and phosphorus is low at 1.8. Ewelina states she has had one episode of severe epigastric pain and did receive one dose of Dilaudid. Otherwise, her abdominal pain she states has improved. REVIEW OF SYSTEMS: GENERAL: Denies any headache or dizziness. NECK: Negative. CHEST AND LUNGS: No chest pain, shortness of breath, or cough. ABDOMEN: As stated above. EXTREMITIES: Negative. SKIN: Without rash. NEURO: Negative. PSYCHIATRIC: Negative. Remainder of review of systems negative for any pertinent positives and negatives. OBJECTIVE: GENERAL: Ewelina Grove is a pleasant 45-year-old female. She is alert, orientated, quite talkative. VITAL SIGNS: TPR is 95.8, 63, 18, and blood pressure 92/42. HEENT: Negative. NECK: Supple. HEART: Regular rate and rhythm. LUNGS: Clear. ABDOMEN: Generalized tenderness and distention. EXTREMITIES: Without peripheral edema. ASSESSMENT: Hyponatremia, mid epigastric abdominal pain, cirrhosis of the liver stage IV, and hypomagnesium. PLAN: K-Phos 45 millimoles IV 1 time today. Check CBC, CMP, and phos in a.m. We will evaluate p.r.n. or in a.m. Electrolytes imbalance and hyponatremia to be monitored . Kathryn Wright PA-C /[id number]
[2020-11-29] MEDS: HYDROmorphone 2 MG Tab PO PRN ×2 (08:19→19:11)
[2020-11-29] MEDS: Multivitamins with Iron Tab.Chew PO SCH (10:06)
[2020-11-29] MEDS: Potassium Phos in 0.9 % NaCl 15 MMOL in Premix Bag 1 BAG IV SCH ×6 (10:08→16:30)
[2020-11-29] MEDS ORDERED: Dicyclomine 10 MG Cap PO PRN (10:39)
--- NOTE | 2020-11-29 10:41 | PCM.CONSN ---
- General Info Date of Service: 11/29/20 Subjective Update: There were no acute events overnight. Patient does report an increase in her abdominal pain today. She did require a dose of IV pain medication overnight. No significant nausea. Appetite is not very good. She did have an EGD today that showed some pouch gastritis. Sodium level has improved only slightly overnight despite the infusion of hypertonic saline. Kidney function has normalized today. Functional Status: Reports: Tolerating Diet - Review of Systems Gastrointestinal: Reports: Abdominal Pain - Patient Data Vitals - Most Recent: Last Vital Signs Temp 35.3 C L 11/29/20 08:40 Pulse 73 11/29/20 08:40 Resp 14 11/29/20 08:40 BP 122/73 11/29/20 08:40 Pulse Ox 100 11/29/20 08:40 Weight - Most Recent: 73.936 kg I&O - Last 24 Hours: Intake & Output 11/28/20 11/29/20 11/29/20 22:59 06:59 14:59 Intake Total 3215 802 75 Output Total 1200 Balance 2014 802 75 Lab Results Last 24 Hours: Laboratory Results - last 24 hr 11/28/20 11/28/20 11/29/20 Range/Units 15:00 20:07 00:12 WBC (4.5-11.0) K/uL RBC (3.30-5.50) M/uL Hgb (12.0-15.0) g/dL Hct (36.0-48.0) % MCV (80-98) fL MCH (27-31) pg MCHC (32-36) % Plt Count (150-400) K/uL Sodium 117 L* 119 L* 119 L* (140-148) mmol/L Potassium (3.6-5.2) mmol/L Chloride (100-108) mmol/L Carbon Dioxide (21-32) mmol/L Anion Gap (5.0-14.0) mmol/L BUN (7-18) mg/dL Creatinine (0.6-1.0) mg/dL Est Cr Clr Drug Dosing mL/min Estimated GFR (MDRD) (>60) Glucose (74-106) mg/dL Calcium (8.5-10.1) mg/dL Phosphorus (2.5-4.9) mg/dL Magnesium (1.8-2.4) mg/dL Total Bilirubin (0.2-1.0) mg/dL AST (15-37) U/L ALT (12-78) U/L Alkaline Phosphatase (46-116) U/L Total Protein (6.4-8.2) g/dL Albumin (3.4-5.0) g/dL Globulin (2.3-3.5) g/dL Albumin/Globulin Ratio (1.2-2.2) 11/29/20 11/29/20 Range/Units 04:15 04:15 WBC 2.8 L (4.5-11.0) K/uL RBC 2.56 L (3.30-5.50) M/uL Hgb 9.3 L D (12.0-15.0) g/dL Hct 26.5 L (36.0-48.0) % MCV 104 H (80-98) fL MCH 36 H (27-31) pg MCHC 35 (32-36) % Plt Count 103 L (150-400) K/uL Sodium 119 L* (140-148) mmol/L Potassium 3.9 (3.6-5.2) mmol/L Chloride 88 L (100-108) mmol/L Carbon Dioxide 26 (21-32) mmol/L Anion Gap 8.9 (5.0-14.0) mmol/L BUN 6 L (7-18) mg/dL Creatinine 0.6 (0.6-1.0) mg/dL Est Cr Clr Drug Dosing 100.09 mL/min Estimated GFR (MDRD) > 60 (>60) Glucose 73 L (74-106) mg/dL Calcium 7.7 L (8.5-10.1) mg/dL Phosphorus 1.8 L (2.5-4.9) mg/dL Magnesium 3.0 H D (1.8-2.4) mg/dL Total Bilirubin 1.5 H (0.2-1.0) mg/dL AST 64 H (15-37) U/L ALT 32 (12-78) U/L Alkaline Phosphatase 148 H (46-116) U/L Total Protein 6.0 L (6.4-8.2) g/dL Albumin 2.5 L (3.4-5.0) g/dL Globulin 3.5 (2.3-3.5) g/dL Albumin/Globulin Ratio 0.7 L (1.2-2.2) Med Orders - Current: Current Medications Desmopressin Acetate (Desmopressin 4 Mcg/1 Ml Amp) 1 mcg SUBCUT Q8H [facility] Last Admin: 11/29/20 10:04 Dose: 1 mcg Documented by: Dicyclomine HCl (Dicyclomine 10 Mg Cap) 10 mg PO QIDACANDBED PRN PRN Reason: abdominal cramping Hydromorphone HCl (Hydromorphone 1 Mg/Ml Syringe) 1 mg IV Q2H PRN PRN Reason: Pain Last Admin: 11/29/20 09:07 Dose: 1 mg Documented by: Hydromorphone HCl (Hydromorphone 2 Mg Tab) 2 mg PO Q4H PRN PRN Reason: Pain Last Admin: 11/29/20 08:19 Dose: 2 mg Documented by: Potassium Phosphate 15 mmol/ (Premix) 250 mls @ 85 mls/hr IV Q3H [facility] Stop: 11/29/20 17:57 Last Admin: 11/29/20 10:08 Dose: 85 mls/hr Documented by: Sodium Chloride (Sodium Chloride 3%) 500 mls @ 22 mls/hr IV ASDIRECTED [facility] Last Admin: 11/29/20 08:00 Dose: 22 mls/hr Documented by: Multivitamins/Iron (Multivitamins With Iron Tab.Chew) 2 tab PO DAILY [facility] Last Admin: 11/29/20 10:06 Dose: 2 tab Documented by: Ondansetron HCl (Ondansetron 4 Mg/2 Ml Sdv) 4 mg IVPUSH Q6H PRN PRN Reason: Nausea Pantoprazole Sodium (Pantoprazole 40 Mg Tab.Cr) 40 mg PO ACBREAKFAST [facility] Discontinued Medications Fentanyl (Fentanyl 100 Mcg/2 Ml Sdv) Confirm Administered Dose 100 mcg .ROUTE .STK-MED ONE Stop: 11/29/20 07:15 Hydromorphone HCl (Hydromorphone 1 Mg/Ml Syringe) 1 mg IVPUSH ONETIME ONE Stop: 11/28/20 00:27 Last Admin: 11/28/20 00:36 Dose: 1 mg Documented by: Sodium Chloride (Normal Saline) 1,000 mls @ 999 mls/hr IV ASDIRECTED [facility] Last Admin: 11/28/20 00:20 Dose: 999 mls/hr Documented by: Sodium Chloride (Normal Saline) 80 mls @ 3.5 mls/sec IV ASDIRECTED [facility] Last Admin: 11/28/20 00:56 Dose: 2.5 mls/sec Documented by: Sodium Chloride (Normal Saline) 1,000 mls @ 150 mls/hr IV ASDIRECTED [facility] Last Admin: 11/28/20 15:47 Dose: 150 mls/hr Documented by: Magnesium Sulfate (Magnesium Sulfate In Water 2 Gm/50 Ml) 2 gm in 50 mls @ 25 mls/hr IV Q6H [facility] Stop: 12/01/20 04:59 Last Admin: 11/29/20 03:23 Dose: 25 mls/hr Documented by: Sodium Chloride (Sodium Chloride 3%) 500 mls @ 18 mls/hr IV ASDIRECTED [facility] Last Admin: 11/28/20 17:33 Dose: 18 mls/hr Documented by: Iopamidol (Iopamidol 612 Mg/Ml 500 Ml Multipack Bottle) 108 ml IV ONETIME ONE Stop: 11/28/20 00:28 Last Admin: 11/28/20 00:55 Dose: 108 ml Documented by: Ketorolac Tromethamine (Ketorolac 30 Mg/Ml Sdv) 15 mg IVPUSH ONETIME ONE Stop: 11/27/20 23:08 Last Admin: 11/27/20 23:25 Dose: 15 mg Documented by: Midazolam HCl (Midazolam 1 Mg/Ml 2 Ml Sdv) Confirm Administered Dose 2 mg .ROUTE .STK-MED ONE Stop: 11/29/20 07:15 Pantoprazole Sodium (Pantoprazole 40 Mg Vial) 40 mg IVPUSH ONETIME ONE Stop: 11/29/20 07:46 Last Admin: 11/29/20 07:50 Dose: 40 mg Documented by: Propofol (Propofol 200 Mg/20 Ml Sdv) Confirm Administered Dose 200 mg .ROUTE .STK-MED ONE Stop: 11/29/20 07:15 Sodium Chloride (Sodium Chloride 0.9% 10 Ml Syringe) 10 ml FLUSH ASDIRECTED PRN PRN Reason: Keep Vein Open Last Admin: 11/27/20 23:26 Dose: 10 ml Documented by: Sodium Chloride (Sodium Chloride 0.9% 10 Ml Syringe) 10 ml FLUSH ONETIME ONE Stop: 11/28/20 00:28 Last Admin: 11/28/20 00:56 Dose: 10 ml Documented by: - Exam Quality Assessment: No: Supplemental Oxygen General: Alert, Oriented, Cooperative, No Acute Distress Lungs: Normal Respiratory Effort Cardiovascular: Regular Rate, Regular Rhythm GI/Abdominal Exam: Soft, No Distention Extremities: No Pedal Edema Psy/Mental Status: Alert, Normal Affect Sepsis Event Note - Evaluation Sepsis Screening Result: No Definite Risk - Focused Exam Vital Signs: Vital Signs Temp Temp Pulse Resp BP Pulse Ox 11/29/20 08:40 35.3 C L 73 14 122/73 100 11/29/20 08:30 73 16 122/73 97 11/29/20 08:15 35.4 C L 16 115/74 98 11/29/20 08:00 36.7 C 71 14 100/63 97 11/29/20 07:55 72 14 105/61 96 11/29/20 07:50 71 14 102/60 98 11/29/20 07:45 70 14 102/61 98 11/29/20 07:40 36.1 C 71 14 86/41 L 97 11/29/20 03:22 35.4 C L 63 18 92/42 L 95 11/28/20 22:45 35.1 C L 75 18 109/65 96 Consult PN Assessment/Plan Procedures: Procedures ABD PARACENTESIS W/IMAGING (11/08/20) APPLY FOREARM SPLINT (11/20/17) ASSAY OF AMMONIA (10/12/20) ASSAY OF COPPER (07/13/18) ASSAY OF FERRITIN (10/04/20) ASSAY OF FOLIC ACID SERUM (07/13/18) ASSAY OF LACTIC ACID (10/04/20) ASSAY OF LIPASE (11/07/20) ASSAY OF MAGNESIUM (11/07/20) ASSAY OF NATRIURETIC PEPTIDE (07/13/18) ASSAY OF SERUM POTASSIUM (09/13/20) ASSAY OF TROPONIN QUANT (07/13/18) ASSAY OF VITAMIN A (07/13/18) ASSAY OF ZINC (07/13/18) ASSAY THYROID STIM HORMONE (10/12/20) BLOOD CULTURE FOR BACTERIA (10/04/20) BLOOD TRANSFUSION SERVICE (07/13/18) BLOOD TYPING SEROLOGIC ABO (07/13/18) BLOOD TYPING SEROLOGIC RH(D) (07/13/18) BREAST TOMOSYNTHESIS BI (07/08/20) C DIFF AMPLIFIED PROBE (08/28/18) C-REACTIVE PROTEIN (10/12/20) CHORIONIC GONADOTROPIN TEST (07/14/18) COLONOSCOPY AND BIOPSY (11/01/20) COLONOSCOPY W/LESION REMOVAL (11/01/20) COMPATIBILITY TEST ANTIGLOB (07/13/18) COMPATIBILITY TEST SPIN (07/13/18) COMPLETE CBC AUTOMATED (10/12/20) COMPLETE CBC W/AUTO DIFF WBC (11/07/20) COMPREHEN METABOLIC PANEL (11/07/20) CT ABD & PELV W/CONTRAST (08/11/18) CULTURE AEROBIC IDENTIFY (08/01/20) CULTURE SCREEN ONLY (07/28/16) DRAINAGE OF GUM LESION (05/23/16) DRUG TEST PRSMV CHEM ANLYZR (10/12/20) DRUG TEST PRSMV DIR OPT OBS (10/12/20) ECHO EXAM OF ABDOMEN (01/17/20) EGD BIOPSY SINGLE/MULTIPLE (07/28/16) ELECTROCARDIOGRAM TRACING (08/01/20) EMERGENCY DEPT VISIT (11/07/20) EMERGENCY DEPT VISIT (08/01/20) EMERGENCY DEPT VISIT (04/15/19) EMERGENCY DEPT VISIT (05/23/16) EMERGENCY DEPT VISIT (12/02/15) EXTREMITY STUDY (11/07/20) HEMOGLOBIN (07/15/18) HOT OR COLD PACKS THERAPY (01/02/19) HYDRATE IV INFUSION ADD-ON (08/08/16) IRON BINDING TEST (10/04/20) MANUAL THERAPY 1/> REGIONS (07/12/18) METABOLIC PANEL TOTAL CA (10/12/20) MICROBE SUSCEPTIBLE FRENCH (10/12/20) MRI JNT OF LWR EXTRE W/O DYE (03/15/18) MRI JOINT UPR EXTREM W/O DYE (04/21/18) MRI UPPER EXTREMITY W/O DYE (04/14/18) ORTHOTIC MGMT&TRAING 1ST ENC (05/30/18) OT EVAL LOW COMPLEX 30 MIN (01/02/19) OT EVAL MOD COMPLEX 45 MIN (05/30/18) PARAFFIN BATH THERAPY (07/12/18) PHYSICAL PERFORMANCE TEST (11/10/18) PROCALCITONIN (PCT) (10/04/20) RBC ANTIBODY SCREEN (07/13/18) REMOVE SKIN NERVE LESION (11/25/18) ROUTINE VENIPUNCTURE (11/07/20) RPR VENTRAL CASE INIT REDUC (11/25/18) SARS-COV-2 COVID-19 AMP PRB (10/30/20) SCR MAMMO BI INCL CAD (07/08/20) THER/DIAG CONCURRENT INF (10/12/20) THER/PROPH/DIAG INJ IV PUSH (07/13/18) THER/PROPH/DIAG IV INF ADDON (10/12/20) THER/PROPH/DIAG IV INF INIT (10/12/20) THERAPEUTIC EXERCISES (06/30/18) TISSUE EXAM BY PATHOLOGIST (11/25/18) TRANSVAGINAL US NON-OB (07/14/18) TX/PRO/DX INJ NEW DRUG ADDON (10/04/20) ULTRASOUND THERAPY (07/12/18) URINALYSIS AUTO W/SCOPE (10/12/20) URINE BACTERIA CULTURE (10/12/20) URINE CULTURE/COLONY COUNT (10/12/20) US EXAM PELVIC COMPLETE (07/14/18) VITAMIN B-12 (07/13/18) VITAMIN D 25 HYDROXY (07/13/18) WORK HARDENING (03/13/19) WORK HARDENING ADD-ON (01/02/19) X-RAY EXAM CHEST 1 VIEW (07/13/18) X-RAY EXAM OF HAND (11/20/17) X-RAY EXAM OF SHOULDER (10/16/15) (1) Hyponatremia SNOMED Code(s): 82106487 Code(s): E87.1 - HYPO-OSMOLALITY AND HYPONATREMIA Priority: High Current Visit: Yes (2) Cirrhosis of liver SNOMED Code(s): 34103306 Code(s): K74.60 - UNSPECIFIED CIRRHOSIS OF LIVER Current Visit: No Qualifiers: Hepatic cirrhosis type: alcoholic cirrhosis Ascites presence: without ascites Qualified Code(s): K70.30 - Alcoholic cirrhosis of liver without ascites Problem List Initiated/Reviewed/Updated: Yes My Orders Last 24 Hours: My Active Orders 11/28/20 16:30 Desmopressin 1 mcg SUBCUT Q8H 11/29/20 08:00 Sodium Chloride 3% 500 ml IV ASDIRECTED 11/29/20 10:39 Dicyclomine [Bentyl] 10 mg PO QIDACANDBED PRN 11/29/20 11:00 SODIUM,NA [CHEM] Timed Plan: ASSESSMENT AND RECOMMENDATIONS - Hyponatremia, severe-suspect hypovolemic hyponatremia in the setting of chronic diuretic use versus possibly medication side effect with SSRI or trazodone. Level has improved only slightly despite infusion of hypertonic saline. Urine sodium is low but urine and serum osmolality are pending. -Continue hypertonic saline, increase dose as needed -Hold diuretics -Recheck sodium this afternoon and as indicated after that Epigastric abdominal pain-CT scan did document a hypodense lesion in the head of the pancreas. The patient reports that this was seen at recent imaging with her social contact worker at [facility]. The plan from the gastroenterology folks was to repeat the scan in a few months and additional work-up is indicated from there. Endoscopy today did show some pouch gastritis. -PPI -Outpatient follow-up with her social contact worker Jim Correia MD
[2020-11-29] MEDS ORDERED: Sodium Chloride 3% 50 ML IV ONE (12:00)
--- NOTE | 2020-11-29 13:13 | OR ---
DATE OF PROCEDURE: 11/29/2020 SURGEON: Errol Gonsalez MD PREOPERATIVE DIAGNOSIS: Upper abdominal pain. POSTOPERATIVE DIAGNOSES: 1. Upper abdominal pain with moderate pouch gastritis. 2. 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 OPERATIVE PROCEDURE: Upper GI endoscopy with biopsies of gastric pouch for CLOtest. ANESTHESIA: IV sedation. INDICATION FOR PROCEDURE: The patient was admitted overnight with some epigastric discomfort among other problems and is undergoing upper endoscopy for evaluation. She is status post previous Iman-en-Y gastric bypass, presently not on any antisecretory medication. Plan is to proceed with upper GI endoscopy with biopsies as indicated. Potential risks including bleeding and perforation were discussed, and the patient wishes to proceed. DETAILS OF PROCEDURE: The patient was taken to the operating room, placed in a left lateral decubitus position. IV sedation was administered, after which the upper GI endoscope was passed orally through the length of the esophagus through the esophagogastric junction, gastric pouch, gastrojejunostomy, roughly 20 cm into the Iman limb. Findings included normal hypopharynx, larynx, upper esophageal sphincter, and esophageal body. Within the esophageal body, however, there was a single roughly 5 cm esophageal varix. This was not overly distended. No are seen. Esophagogastric junction was otherwise unremarkable. Gastric pouch had diffuse edema and there was moderate inflammation and friability. There was a single reddened area in that area consistent with possible erosion. Otherwise, gastrojejunostomy was widely patent and there is no evidence of marginal ulcer or abnormality within the Iman limb. At this point, biopsies were obtained from the gastric pouch, sent for CLOtest for H pylori. Minimal bleeding from the biopsy site was seen. Procedure concluded. The patient was taken to the recovery room in satisfactory condition. The plan will be to begin the patient on some Protonix, give her some IV in the recovery room and then orally starting tomorrow. Otherwise, plan is to continue primary problem at this point is hyponatremia. Errol Gonsalez MD /[id number]
[2020-11-29] MEDS: Gabapentin 300 MG Cap PO SCH ×2 (13:32→21:46)
[2020-11-29] MEDS: Sodium Chloride 3% 500 ML IV SCH (18:06)
[2020-11-30] MEDS: Desmopressin 4 MCG/1 ML Amp SUBCUT SCH ×4 (00:29→16:29)
[2020-11-30] MEDS: HYDROmorphone 2 MG Tab PO PRN ×3 (04:33→22:56)
[2020-11-30] MEDS: Pantoprazole 40 MG Tab.CR PO SCH (08:08)
--- NOTE | 2020-11-30 08:25 | PN ---
DATE OF SERVICE: 11/30/2020 SUBJECTIVE: Ewelina states she has mid generalized abdominal pain. She did have an EGD yesterday. Vital signs remained stable. Oral intake was 1286. Urine output 2100. She is on fluid restrictions. Management of hyponatremia by Rajinder Correia MD, hospitalist. REVIEW OF SYSTEMS: GENERAL: Ewelina denies headache, dizziness. NECK: Negative. CHEST AND LUNGS: No chest pain, fast or irregular heart beat. Lungs, no cough. ABDOMEN: Generalized tenderness, distention, and bloating. Has not had a bowel movement. EXTREMITIES: With trace peripheral edema. SKIN: Dry and pruritic. NEUROLOGIC: Intact. PSYCHIATRIC: Mood and affect appropriate. Remainder of review of systems negative for any pertinent positives or negatives. OBJECTIVE: GENERAL: Ewelina is a pleasant 45-year-old female. She is alert and orientated. VITAL SIGNS: TPR 97.8, 88, and 16. Blood pressure 112/73. HEENT: Negative. NECK: Supple. HEART: Regular rate and rhythm. LUNGS: Clear. ABDOMEN: Slightly distended, which is pretty normal for her with generalized tenderness. EXTREMITIES: Trace peripheral edema. SKIN: Dry. ASSESSMENT: 1. Hyponatremia. 2. Cirrhosis of liver. 3. Esophagogastroduodenoscopy on 11/29/2020. PREOPERATIVE DIAGNOSIS: Upper abdominal pain. POSTOPERATIVE DIAGNOSES: 1. Upper abdominal pain with moderate pouch gastritis. 2. 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 Date of procedure 11/29/2020. PLAN: 1. Hyponatremia. Managed by Rajinder Correia MD. 2. We will evaluate p.r.n. or in a.m. Kathryn Wright PA-C /[id number]
[2020-11-30] MEDS: Sodium Chloride 3% 500 ML IV SCH ×2 (09:09→21:17)
[2020-11-30] MEDS: Multivitamins with Iron Tab.Chew PO SCH (09:12)
[2020-11-30] MEDS: Gabapentin 300 MG Cap PO SCH ×3 (09:12→20:00)
--- NOTE | 2020-11-30 10:48 | PCM.PN ---
- General Info Date of Service: 11/30/20 Subjective Update: No acute events overnight. Still has some abdominal pain though it is better than yesterday. She is managing this with oral medications. No fevers overnight. No nausea. Tolerating her diet. Up walking in the halls. Sodium level is slowly improving. It does remain quite low but better on each check. Functional Status: Reports: Pain Controlled, Tolerating Diet - Review of Systems General: Denies: Fever Gastrointestinal: Reports: Abdominal Pain - Patient Data Vitals - Most Recent: Last Vital Signs Temp 35.4 C L 11/30/20 08:19 Pulse 82 11/30/20 08:19 Resp 18 11/30/20 08:19 BP 116/62 11/30/20 08:19 Pulse Ox 100 11/30/20 08:19 Weight - Most Recent: 73.936 kg I&O - Last 24 Hours: Intake & Output 11/29/20 11/30/20 11/30/20 22:59 06:59 14:59 Intake Total 798 Balance 798 Lab Results Last 24 Hours: Laboratory Results - last 24 hr 11/29/20 11/29/20 11/29/20 Range/Units 04:30 11:00 13:27 WBC (4.5-11.0) K/uL RBC (3.30-5.50) M/uL Hgb (12.0-15.0) g/dL Hct (36.0-48.0) % MCV (80-98) fL MCH (27-31) pg MCHC (32-36) % Plt Count (150-400) K/uL Sodium 118 L* (140-148) mmol/L Potassium (3.6-5.2) mmol/L Chloride (100-108) mmol/L Carbon Dioxide (21-32) mmol/L Anion Gap (5.0-14.0) mmol/L BUN (7-18) mg/dL Creatinine (0.6-1.0) mg/dL Est Cr Clr Drug Dosing mL/min Estimated GFR (MDRD) (>60) Glucose (74-106) mg/dL Calcium (8.5-10.1) mg/dL Phosphorus (2.5-4.9) mg/dL Total Bilirubin (0.2-1.0) mg/dL AST (15-37) U/L ALT (12-78) U/L Alkaline Phosphatase (46-116) U/L Total Protein (6.4-8.2) g/dL Albumin (3.4-5.0) g/dL Globulin (2.3-3.5) g/dL Albumin/Globulin Ratio (1.2-2.2) TSH, Ultra Sensitive 11.511 H (0.358-3.740) uIU/mL Ur Random Sodium 27 (20-110) mmol/L 11/29/20 11/29/20 11/30/20 Range/Units 16:30 20:08 00:10 WBC (4.5-11.0) K/uL RBC (3.30-5.50) M/uL Hgb (12.0-15.0) g/dL Hct (36.0-48.0) % MCV (80-98) fL MCH (27-31) pg MCHC (32-36) % Plt Count (150-400) K/uL Sodium 116 L* 117 L* 118 L* (140-148) mmol/L Potassium (3.6-5.2) mmol/L Chloride (100-108) mmol/L Carbon Dioxide (21-32) mmol/L Anion Gap (5.0-14.0) mmol/L BUN (7-18) mg/dL Creatinine (0.6-1.0) mg/dL Est Cr Clr Drug Dosing mL/min Estimated GFR (MDRD) (>60) Glucose (74-106) mg/dL Calcium (8.5-10.1) mg/dL Phosphorus (2.5-4.9) mg/dL Total Bilirubin (0.2-1.0) mg/dL AST (15-37) U/L ALT (12-78) U/L Alkaline Phosphatase (46-116) U/L Total Protein (6.4-8.2) g/dL Albumin (3.4-5.0) g/dL Globulin (2.3-3.5) g/dL Albumin/Globulin Ratio (1.2-2.2) TSH, Ultra Sensitive (0.358-3.740) uIU/mL Ur Random Sodium (20-110) mmol/L 11/30/20 11/30/20 Range/Units 04:10 04:10 WBC 3.2 L (4.5-11.0) K/uL RBC 2.60 L (3.30-5.50) M/uL Hgb 9.4 L (12.0-15.0) g/dL Hct 27.0 L (36.0-48.0) % MCV 104 H (80-98) fL MCH 36 H (27-31) pg MCHC 35 (32-36) % Plt Count 108 L (150-400) K/uL Sodium 119 L* (140-148) mmol/L Potassium 4.2 (3.6-5.2) mmol/L Chloride 90 L (100-108) mmol/L Carbon Dioxide 22 (21-32) mmol/L Anion Gap 11.2 (5.0-14.0) mmol/L BUN 3 L (7-18) mg/dL Creatinine 0.6 (0.6-1.0) mg/dL Est Cr Clr Drug Dosing 100.09 mL/min Estimated GFR (MDRD) > 60 (>60) Glucose 71 L (74-106) mg/dL Calcium 7.6 L (8.5-10.1) mg/dL Phosphorus 2.0 L (2.5-4.9) mg/dL Total Bilirubin 1.4 H (0.2-1.0) mg/dL AST 69 H (15-37) U/L ALT 35 (12-78) U/L Alkaline Phosphatase 147 H (46-116) U/L Total Protein 6.3 L (6.4-8.2) g/dL Albumin 2.6 L (3.4-5.0) g/dL Globulin 3.7 H (2.3-3.5) g/dL Albumin/Globulin Ratio 0.7 L (1.2-2.2) TSH, Ultra Sensitive (0.358-3.740) uIU/mL Ur Random Sodium (20-110) mmol/L Abdirashid Results Last 24 Hours: Microbiology 11/29/20 07:35 CLOtest - Final Stomach NEGATIVE CLOTEST REFERENCE RANGE: NEGATIVE Med Orders - Current: Current Medications Desmopressin Acetate (Desmopressin 4 Mcg/1 Ml Amp) 1 mcg SUBCUT Q8H [facility] Last Admin: 11/30/20 09:23 Dose: 1 mcg Documented by: Dicyclomine HCl (Dicyclomine 10 Mg Cap) 10 mg PO QIDACANDBED PRN PRN Reason: abdominal cramping Gabapentin (Gabapentin 300 Mg Cap) 600 mg PO TID [facility] Last Admin: 11/30/20 09:12 Dose: 600 mg Documented by: Hydromorphone HCl (Hydromorphone 1 Mg/Ml Syringe) 1 mg IV Q2H PRN PRN Reason: Pain (severe 7-10) Last Admin: 11/29/20 09:07 Dose: 1 mg Documented by: Hydromorphone HCl (Hydromorphone 2 Mg Tab) 2 mg PO Q4H PRN PRN Reason: Pain (moderate 4-6) Last Admin: 11/30/20 04:33 Dose: 2 mg Documented by: Sodium Chloride (Sodium Chloride 3%) 500 mls @ 45 mls/hr IV ASDIRECTED [facility] Last Admin: 11/30/20 09:09 Dose: 45 mls/hr Documented by: Multivitamins/Iron (Multivitamins With Iron Tab.Chew) 2 tab PO DAILY [facility] [place] Last Admin: 11/30/20 09:12 Dose: 2 tab Documented by: Ondansetron HCl (Ondansetron 4 Mg/2 Ml Sdv) 4 mg IVPUSH Q6H PRN PRN Reason: Nausea Pantoprazole Sodium (Pantoprazole 40 Mg Tab.Cr) 40 mg PO ACBREAKFAST [facility] [place] Last Admin: 11/30/20 08:08 Dose: 40 mg Documented by: Discontinued Medications Fentanyl (Fentanyl 100 Mcg/2 Ml Sdv) Confirm Administered Dose 100 mcg .ROUTE .STK-MED ONE Stop: 11/29/20 07:15 Hydromorphone HCl (Hydromorphone 1 Mg/Ml Syringe) 1 mg IVPUSH ONETIME ONE Stop: 11/28/20 00:27 Last Admin: 11/28/20 00:36 Dose: 1 mg Documented by: Sodium Chloride (Normal Saline) 1,000 mls @ 999 mls/hr IV ASDIRECTED [facility] Last Admin: 11/28/20 00:20 Dose: 999 mls/hr Documented by: Sodium Chloride (Normal Saline) 80 mls @ 3.5 mls/sec IV ASDIRECTED [facility] [place] Last Admin: 11/28/20 00:56 Dose: 2.5 mls/sec Documented by: Sodium Chloride (Normal Saline) 1,000 mls @ 150 mls/hr IV ASDIRECTED [facility] [place] Last Admin: 11/28/20 15:47 Dose: 150 mls/hr Documented by: Magnesium Sulfate (Magnesium Sulfate In Water 2 Gm/50 Ml) 2 gm in 50 mls @ 25 mls/hr IV Q6H [facility] Stop: 12/01/20 04:59 Last Admin: 11/29/20 03:23 Dose: 25 mls/hr Documented by: Sodium Chloride (Sodium Chloride 3%) 500 mls @ 18 mls/hr IV ASDIRECTED [facility] [place] Last Admin: 11/28/20 17:33 Dose: 18 mls/hr Documented by: Potassium Phosphate 15 mmol/ (Premix) 250 mls @ 85 mls/hr IV Q3H [facility] Stop: 11/29/20 17:57 Last Admin: 11/29/20 16:30 Dose: 85 mls/hr Documented by: Sodium Chloride (Sodium Chloride 3%) 500 mls @ 22 mls/hr IV ASDIRECTED [facility] [place] Sodium Chloride (Sodium Chloride 3%) 50 mls @ 100 mls/hr IV ONETIME ONE Stop: 11/29/20 12:29 Last Admin: 11/29/20 13:00 Dose: 100 mls/hr Documented by: Iopamidol (Iopamidol 612 Mg/Ml 500 Ml Multipack Bottle) 108 ml IV ONETIME ONE Stop: 11/28/20 00:28 Last Admin: 11/28/20 00:55 Dose: 108 ml Documented by: Ketorolac Tromethamine (Ketorolac 30 Mg/Ml Sdv) 15 mg IVPUSH ONETIME ONE Stop: 11/27/20 23:08 Last Admin: 11/27/20 23:25 Dose: 15 mg Documented by: Midazolam HCl (Midazolam 1 Mg/Ml 2 Ml Sdv) Confirm Administered Dose 2 mg .ROUTE .STK-MED ONE Stop: 11/29/20 07:15 Pantoprazole Sodium (Pantoprazole 40 Mg Vial) 40 mg IVPUSH ONETIME ONE Stop: 11/29/20 07:46 Last Admin: 11/29/20 07:50 Dose: 40 mg Documented by: Propofol (Propofol 200 Mg/20 Ml Sdv) Confirm Administered Dose 200 mg .ROUTE .STK-MED ONE Stop: 11/29/20 07:15 Sodium Chloride (Sodium Chloride 0.9% 10 Ml Syringe) 10 ml FLUSH ASDIRECTED PRN PRN Reason: Keep Vein Open Last Admin: 11/27/20 23:26 Dose: 10 ml Documented by: Sodium Chloride (Sodium Chloride 0.9% 10 Ml Syringe) 10 ml FLUSH ONETIME ONE Stop: 11/28/20 00:28 Last Admin: 11/28/20 00:56 Dose: 10 ml Documented by: - Exam General: Alert, Oriented, Cooperative, No Acute Distress Lungs: Normal Respiratory Effort GI/Abdominal Exam: Soft, No Distention Extremities: No Pedal Edema Psy/Mental Status: Alert, Normal Affect - Patient Data Lab Results Last 24 hrs: Laboratory Results - last 24 hr 11/29/20 11/29/20 11/29/20 Range/Units 04:30 11:00 13:27 WBC (4.5-11.0) K/uL RBC (3.30-5.50) M/uL Hgb (12.0-15.0) g/dL Hct (36.0-48.0) % MCV (80-98) fL MCH (27-31) pg MCHC (32-36) % Plt Count (150-400) K/uL Sodium 118 L* (140-148) mmol/L Potassium (3.6-5.2) mmol/L Chloride (100-108) mmol/L Carbon Dioxide (21-32) mmol/L Anion Gap (5.0-14.0) mmol/L BUN (7-18) mg/dL Creatinine (0.6-1.0) mg/dL Est Cr Clr Drug Dosing mL/min Estimated GFR (MDRD) (>60) Glucose (74-106) mg/dL Calcium (8.5-10.1) mg/dL Phosphorus (2.5-4.9) mg/dL Total Bilirubin (0.2-1.0) mg/dL AST (15-37) U/L ALT (12-78) U/L Alkaline Phosphatase (46-116) U/L Total Protein (6.4-8.2) g/dL Albumin (3.4-5.0) g/dL Globulin (2.3-3.5) g/dL Albumin/Globulin Ratio (1.2-2.2) TSH, Ultra Sensitive 11.511 H (0.358-3.740) uIU/mL Ur Random Sodium 27 (20-110) mmol/L 11/29/20 11/29/20 11/30/20 Range/Units 16:30 20:08 00:10 WBC (4.5-11.0) K/uL RBC (3.30-5.50) M/uL Hgb (12.0-15.0) g/dL Hct (36.0-48.0) % MCV (80-98) fL MCH (27-31) pg MCHC (32-36) % Plt Count (150-400) K/uL Sodium 116 L* 117 L* 118 L* (140-148) mmol/L Potassium (3.6-5.2) mmol/L Chloride (100-108) mmol/L Carbon Dioxide (21-32) mmol/L Anion Gap (5.0-14.0) mmol/L BUN (7-18) mg/dL Creatinine (0.6-1.0) mg/dL Est Cr Clr Drug Dosing mL/min Estimated GFR (MDRD) (>60) Glucose (74-106) mg/dL Calcium (8.5-10.1) mg/dL Phosphorus (2.5-4.9) mg/dL Total Bilirubin (0.2-1.0) mg/dL AST (15-37) U/L ALT (12-78) U/L Alkaline Phosphatase (46-116) U/L Total Protein (6.4-8.2) g/dL Albumin (3.4-5.0) g/dL Globulin (2.3-3.5) g/dL Albumin/Globulin Ratio (1.2-2.2) TSH, Ultra Sensitive (0.358-3.740) uIU/mL Ur Random Sodium (20-110) mmol/L 11/30/20 11/30/20 Range/Units 04:10 04:10 WBC 3.2 L (4.5-11.0) K/uL RBC 2.60 L (3.30-5.50) M/uL Hgb 9.4 L (12.0-15.0) g/dL Hct 27.0 L (36.0-48.0) % MCV 104 H (80-98) fL MCH 36 H (27-31) pg MCHC 35 (32-36) % Plt Count 108 L (150-400) K/uL Sodium 119 L* (140-148) mmol/L Potassium 4.2 (3.6-5.2) mmol/L Chloride 90 L (100-108) mmol/L Carbon Dioxide 22 (21-32) mmol/L Anion Gap 11.2 (5.0-14.0) mmol/L BUN 3 L (7-18) mg/dL Creatinine 0.6 (0.6-1.0) mg/dL Est Cr Clr Drug Dosing 100.09 mL/min Estimated GFR (MDRD) > 60 (>60) Glucose 71 L (74-106) mg/dL Calcium 7.6 L (8.5-10.1) mg/dL Phosphorus 2.0 L (2.5-4.9) mg/dL Total Bilirubin 1.4 H (0.2-1.0) mg/dL AST 69 H (15-37) U/L ALT 35 (12-78) U/L Alkaline Phosphatase 147 H (46-116) U/L Total Protein 6.3 L (6.4-8.2) g/dL Albumin 2.6 L (3.4-5.0) g/dL Globulin 3.7 H (2.3-3.5) g/dL Albumin/Globulin Ratio 0.7 L (1.2-2.2) TSH, Ultra Sensitive (0.358-3.740) uIU/mL Ur Random Sodium (20-110) mmol/L Result Diagrams: 11/30/20 04:10 11/30/20 11:01 Abdirashid Results Last 24 hrs: Microbiology 11/29/20 07:35 CLOtest - Final Stomach NEGATIVE CLOTEST REFERENCE RANGE: NEGATIVE Sepsis Event Note - Evaluation Sepsis Screening Result: No Definite Risk - Focused Exam Vital Signs: Vital Signs Temp Pulse Resp BP Pulse Ox 11/30/20 08:19 35.4 C L 82 18 116/62 100 11/30/20 02:48 36.6 C 88 16 112/73 98 11/29/20 22:56 36.2 C 79 16 109/65 99 - Problem List & Annotations (1) Hyponatremia SNOMED Code(s): 65445821 Code(s): E87.1 - HYPO-OSMOLALITY AND HYPONATREMIA Status: Acute Priority: High Current Visit: Yes (2) Cirrhosis of liver SNOMED Code(s): 40794093 Code(s): K74.60 - UNSPECIFIED CIRRHOSIS OF LIVER Status: Acute Current Visit: No Qualifiers: Hepatic cirrhosis type: alcoholic cirrhosis Ascites presence: without ascites Qualified Code(s): K70.30 - Alcoholic cirrhosis of liver without ascites - Problem List Review Problem List Initiated/Reviewed/Updated: Yes - My Orders Last 24 Hours: My Active Orders 11/29/20 10:39 Dicyclomine [Bentyl] 10 mg PO QIDACANDBED PRN 11/29/20 11:00 OSMOLALITY Routine 11/29/20 13:53 OSMOLALITY, URINE Routine 11/29/20 14:00 Gabapentin [Neurontin] 600 mg PO TID 11/29/20 Dinner Fluid Restriction [DIET] 11/29/20 17:30 Sodium Chloride 3% 500 ml IV ASDIRECTED 11/30/20 11:00 SODIUM,NA [CHEM] Q6H 11/30/20 17:00 SODIUM,NA [CHEM] Q6H 11/30/20 23:00 SODIUM,NA [CHEM] Q6H 12/01/20 05:00 BASIC METABOLIC PANEL,BMP [CHEM] Timed CBC W/O DIFF,HEMOGRAM [HEME] Timed (1) - Plan Plan:: ASSESSMENT AND RECOMMENDATIONS - Hyponatremia, severe-suspect hypovolemic hyponatremia in the setting of chronic diuretic use versus possibly medication side effect with SSRI or trazodone. Level has slowly improved with hypertonic saline. Serum and urine osmolality are pending. -Continue hypertonic saline, increase dose as needed -Every 6 hours sodium checks -Hold diuretics -Discontinued desmopressin Epigastric abdominal pain-CT scan did document a hypodense lesion in the head of the pancreas. The patient reports that this was seen at recent imaging with her drum sander offbearer at . The plan from the gastroenterology folks was to repeat the scan in a few months and additional work-up is indicated from there. 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 -PPI -Outpatient follow-up with her drum sander offbearer Jim Correia MD
[2020-12-01] MEDS: Multivitamins with Iron Tab.Chew PO SCH (08:15)
[2020-12-01] MEDS: Gabapentin 300 MG Cap PO SCH ×3 (08:15→21:46)
[2020-12-01] MEDS: Pantoprazole 40 MG Tab.CR PO SCH (08:15)
[2020-12-01] MEDS ORDERED: Sodium Chloride 3% 500 ML IV SCH (08:30)
--- NOTE | 2020-12-01 09:42 | PN ---
DATE OF SERVICE: 12/01/2020 SUBJECTIVE: Ewelina's sodium is 122. Oral intake 780, output independent 275 was measured. She did have a bowel movement yesterday. Continues on a fluid restriction of 1500 mL. Getting Dilaudid for generalized abdominal pain. REVIEW OF SYSTEMS: Remainder review of all 12 systems negative for any other pertinent positives and negatives. OBJECTIVE: GENERAL: Ewelina Grove is a pleasant 45-year-old female. She is alert and orientated, has already been walking this morning. VITAL SIGNS: TPR is 97.3, 56, and 16. Blood pressure 108/60. HEENT: Negative. NECK: Supple. HEART: Regular rate and rhythm. LUNGS: Clear. ABDOMEN: Distended, soft with generalized tenderness. EXTREMITIES: Trace peripheral edema. ASSESSMENT: 1. Hyponatremia. 2. Cirrhosis of the liver. 3. Esophageal gastrojejunostomy on 11/29/2020. POSTOPERATIVE DIAGNOSES: Upper abdominal pain. 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 Date of procedure 11/29/2020 - surgeon, Errol Gonsalez MD. PLAN: Communication order written for accurate intake and output. We will evaluate p.r.n. or in a.m. Kathryn Wright PA-C /[id number]
[2020-12-01] MEDS: HYDROmorphone 2 MG Tab PO PRN ×2 (10:30→21:46)
[2020-12-01] MEDS: Acetaminophen 325 MG Tab PO PRN (13:17)
--- NOTE | 2020-12-01 14:57 | PCM.PN ---
- General Info Date of Service: 12/01/20 Subjective Update: No acute events overnight. Abdominal pain is steadily improving but has not quite resolved. Strength and appetite have been good. Sodium level steadily improving and is now up to 127. No headache. Weight is up from admission and she feels puffy but does not have significant edema at this time. Functional Status: Reports: Pain Controlled, Tolerating Diet - Review of Systems Pulmonary: Reports: Shortness of Breath Gastrointestinal: Reports: Abdominal Pain - Patient Data Vitals - Most Recent: Last Vital Signs Temp 35.4 C L 12/01/20 08:00 Pulse 88 12/01/20 08:00 Resp 16 12/01/20 12:00 BP 135/65 12/01/20 08:00 Pulse Ox 100 12/01/20 08:00 Weight - Most Recent: 88.995 kg I&O - Last 24 Hours: Intake & Output 11/30/20 12/01/20 12/01/20 22:59 06:59 14:59 Intake Total 496 576 487 Output Total 665 433 4946 Balance 371 426 -306 Lab Results Last 24 Hours: Laboratory Results - last 24 hr 11/30/20 11/30/20 12/01/20 Range/Units 16:57 23:05 04:20 WBC 3.1 L (4.5-11.0) K/uL RBC 2.55 L (3.30-5.50) M/uL Hgb 9.2 L (12.0-15.0) g/dL Hct 26.9 L (36.0-48.0) % MCV 106 H (80-98) fL MCH 36 H (27-31) pg MCHC 34 (32-36) % Plt Count 112 L (150-400) K/uL Sodium 121 L 121 L (140-148) mmol/L Potassium (3.6-5.2) mmol/L Chloride (100-108) mmol/L Carbon Dioxide (21-32) mmol/L Anion Gap (5.0-14.0) mmol/L BUN (7-18) mg/dL Creatinine (0.6-1.0) mg/dL Est Cr Clr Drug Dosing mL/min Estimated GFR (MDRD) (>60) Glucose (74-106) mg/dL Calcium (8.5-10.1) mg/dL 12/01/20 12/01/20 Range/Units 04:20 14:09 WBC (4.5-11.0) K/uL RBC (3.30-5.50) M/uL Hgb (12.0-15.0) g/dL Hct (36.0-48.0) % MCV (80-98) fL MCH (27-31) pg MCHC (32-36) % Plt Count (150-400) K/uL Sodium 122 L 127 L (140-148) mmol/L Potassium 3.9 (3.6-5.2) mmol/L Chloride 93 L (100-108) mmol/L Carbon Dioxide 21 (21-32) mmol/L Anion Gap 11.9 (5.0-14.0) mmol/L BUN 4 L (7-18) mg/dL Creatinine 0.5 L (0.6-1.0) mg/dL Est Cr Clr Drug Dosing 120.11 mL/min Estimated GFR (MDRD) > 60 (>60) Glucose 84 (74-106) mg/dL Calcium 7.5 L (8.5-10.1) mg/dL Med Orders - Current: Current Medications Acetaminophen (Acetaminophen 325 Mg Tab) 650 mg PO Q4H PRN PRN Reason: Pain/Fever Last Admin: 12/01/20 13:17 Dose: 650 mg Documented by: Dicyclomine HCl (Dicyclomine 10 Mg Cap) 10 mg PO QIDACANDBED PRN PRN Reason: abdominal cramping Gabapentin (Gabapentin 300 Mg Cap) 600 mg PO TID [facility] Last Admin: 12/01/20 13:17 Dose: 600 mg Documented by: Hydromorphone HCl (Hydromorphone 1 Mg/Ml Syringe) 1 mg IV Q2H PRN PRN Reason: Pain (severe 7-10) Last Admin: 11/29/20 09:07 Dose: 1 mg Documented by: Hydromorphone HCl (Hydromorphone 2 Mg Tab) 2 mg PO Q4H PRN PRN Reason: Pain (moderate 4-6) Last Admin: 12/01/20 10:30 Dose: 2 mg Documented by: Multivitamins/Iron (Multivitamins With Iron Tab.Chew) 2 tab PO DAILY [facility] Last Admin: 12/01/20 08:15 Dose: 2 tab Documented by: Ondansetron HCl (Ondansetron 4 Mg/2 Ml Sdv) 4 mg IVPUSH Q6H PRN PRN Reason: Nausea Pantoprazole Sodium (Pantoprazole 40 Mg Tab.Cr) 40 mg PO ACBREAKFAST [facility] Last Admin: 12/01/20 08:15 Dose: 40 mg Documented by: Discontinued Medications Desmopressin Acetate (Desmopressin 4 Mcg/1 Ml Amp) 1 mcg SUBCUT Q8H [facility] Last Admin: 11/30/20 16:29 Dose: Not Given Documented by: Fentanyl (Fentanyl 100 Mcg/2 Ml Sdv) Confirm Administered Dose 100 mcg .ROUTE .STK-MED ONE Stop: 11/29/20 07:15 Hydromorphone HCl (Hydromorphone 1 Mg/Ml Syringe) 1 mg IVPUSH ONETIME ONE Stop: 11/28/20 00:27 Last Admin: 11/28/20 00:36 Dose: 1 mg Documented by: Sodium Chloride (Normal Saline) 1,000 mls @ 999 mls/hr IV ASDIRECTED [facility] Last Admin: 11/28/20 00:20 Dose: 999 mls/hr Documented by: Sodium Chloride (Normal Saline) 80 mls @ 3.5 mls/sec IV ASDIRECTED [facility] Last Admin: 11/28/20 00:56 Dose: 2.5 mls/sec Documented by: Sodium Chloride (Normal Saline) 1,000 mls @ 150 mls/hr IV ASDIRECTED [facility] Last Admin: 11/28/20 15:47 Dose: 150 mls/hr Documented by: Magnesium Sulfate (Magnesium Sulfate In Water 2 Gm/50 Ml) 2 gm in 50 mls @ 25 mls/hr IV Q6H [facility] Stop: 12/01/20 04:59 Last Admin: 11/29/20 03:23 Dose: 25 mls/hr Documented by: Sodium Chloride (Sodium Chloride 3%) 500 mls @ 18 mls/hr IV ASDIRECTED [facility] Last Admin: 11/28/20 17:33 Dose: 18 mls/hr Documented by: Potassium Phosphate 15 mmol/ (Premix) 250 mls @ 85 mls/hr IV Q3H [facility] Stop: 11/29/20 17:57 Last Admin: 11/29/20 16:30 Dose: 85 mls/hr Documented by: Sodium Chloride (Sodium Chloride 3%) 500 mls @ 22 mls/hr IV ASDIRECTED [facility] Sodium Chloride (Sodium Chloride 3%) 50 mls @ 100 mls/hr IV ONETIME ONE Stop: 11/29/20 12:29 Last Admin: 11/29/20 13:00 Dose: 100 mls/hr Documented by: Sodium Chloride (Sodium Chloride 3%) 500 mls @ 45 mls/hr IV ASDIRECTED [facility] Last Admin: 11/30/20 21:17 Dose: 45 mls/hr Documented by: Sodium Chloride (Sodium Chloride 3%) 500 mls @ 50 mls/hr IV ASDIRECTED [facility] Last Admin: 12/01/20 09:03 Dose: 50 mls/hr Documented by: Iopamidol (Iopamidol 612 Mg/Ml 500 Ml Multipack Bottle) 108 ml IV ONETIME ONE Stop: 11/28/20 00:28 Last Admin: 11/28/20 00:55 Dose: 108 ml Documented by: Ketorolac Tromethamine (Ketorolac 30 Mg/Ml Sdv) 15 mg IVPUSH ONETIME ONE Stop: 11/27/20 23:08 Last Admin: 11/27/20 23:25 Dose: 15 mg Documented by: Midazolam HCl (Midazolam 1 Mg/Ml 2 Ml Sdv) Confirm Administered Dose 2 mg .ROUTE .STK-MED ONE Stop: 11/29/20 07:15 Pantoprazole Sodium (Pantoprazole 40 Mg Vial) 40 mg IVPUSH ONETIME ONE Stop: 11/29/20 07:46 Last Admin: 11/29/20 07:50 Dose: 40 mg Documented by: Propofol (Propofol 200 Mg/20 Ml Sdv) Confirm Administered Dose 200 mg .ROUTE .STK-MED ONE Stop: 11/29/20 07:15 Sodium Chloride (Sodium Chloride 0.9% 10 Ml Syringe) 10 ml FLUSH ASDIRECTED PRN PRN Reason: Keep Vein Open Last Admin: 11/27/20 23:26 Dose: 10 ml Documented by: Sodium Chloride (Sodium Chloride 0.9% 10 Ml Syringe) 10 ml FLUSH ONETIME ONE Stop: 11/28/20 00:28 Last Admin: 11/28/20 00:56 Dose: 10 ml Documented by: - Exam Quality Assessment: No: Supplemental Oxygen General: Alert, Oriented, Cooperative, No Acute Distress Lungs: Normal Respiratory Effort, Crackles (few left lung base ) GI/Abdominal Exam: Soft, No Distention Extremities: No Pedal Edema. No: Increased Warmth Skin: Warm, Dry Psy/Mental Status: Alert, Normal Affect - Patient Data Lab Results Last 24 hrs: Laboratory Results - last 24 hr 11/30/20 11/30/20 12/01/20 Range/Units 16:57 23:05 04:20 WBC 3.1 L (4.5-11.0) K/uL RBC 2.55 L (3.30-5.50) M/uL Hgb 9.2 L (12.0-15.0) g/dL Hct 26.9 L (36.0-48.0) % MCV 106 H (80-98) fL MCH 36 H (27-31) pg MCHC 34 (32-36) % Plt Count 112 L (150-400) K/uL Sodium 121 L 121 L (140-148) mmol/L Potassium (3.6-5.2) mmol/L Chloride (100-108) mmol/L Carbon Dioxide (21-32) mmol/L Anion Gap (5.0-14.0) mmol/L BUN (7-18) mg/dL Creatinine (0.6-1.0) mg/dL Est Cr Clr Drug Dosing mL/min Estimated GFR (MDRD) (>60) Glucose (74-106) mg/dL Calcium (8.5-10.1) mg/dL 12/01/20 12/01/20 Range/Units 04:20 14:09 WBC (4.5-11.0) K/uL RBC (3.30-5.50) M/uL Hgb (12.0-15.0) g/dL Hct (36.0-48.0) % MCV (80-98) fL MCH (27-31) pg MCHC (32-36) % Plt Count (150-400) K/uL Sodium 122 L 127 L (140-148) mmol/L Potassium 3.9 (3.6-5.2) mmol/L Chloride 93 L (100-108) mmol/L Carbon Dioxide 21 (21-32) mmol/L Anion Gap 11.9 (5.0-14.0) mmol/L BUN 4 L (7-18) mg/dL Creatinine 0.5 L (0.6-1.0) mg/dL Est Cr Clr Drug Dosing 120.11 mL/min Estimated GFR (MDRD) > 60 (>60) Glucose 84 (74-106) mg/dL Calcium 7.5 L (8.5-10.1) mg/dL Result Diagrams: 12/01/20 04:20 12/01/20 14:09 Sepsis Event Note - Evaluation Sepsis Screening Result: No Definite Risk - Focused Exam Vital Signs: Vital Signs Temp Pulse Resp BP Pulse Ox 12/01/20 12:00 16 12/01/20 08:00 35.4 C L 88 16 135/65 100 - Problem List & Annotations (1) Hyponatremia SNOMED Code(s): 24437174 Code(s): E87.1 - HYPO-OSMOLALITY AND HYPONATREMIA Status: Acute Priority: High Current Visit: Yes (2) Cirrhosis of liver SNOMED Code(s): 10629583 Code(s): K74.60 - UNSPECIFIED CIRRHOSIS OF LIVER Status: Acute Current Visit: No Qualifiers: Hepatic cirrhosis type: alcoholic cirrhosis Ascites presence: without ascites Qualified Code(s): K70.30 - Alcoholic cirrhosis of liver without ascites - Problem List Review Problem List Initiated/Reviewed/Updated: Yes - My Orders Last 24 Hours: My Active Orders 12/01/20 11:00 Acetaminophen [TylenoL] 650 mg PO Q4H PRN 12/01/20 14:55 Convert IV to Saline Lock [OM.PC] Routine 12/01/20 21:00 SODIUM,NA [CHEM] Timed 12/02/20 05:00 BASIC METABOLIC PANEL,BMP [CHEM] Timed - Plan Plan:: ASSESSMENT AND RECOMMENDATIONS - Hyponatremia, severe-suspect hypovolemic hyponatremia in the setting of chronic diuretic use versus possibly medication side effect with SSRI or trazodone. Level has slowly improved with hypertonic saline. Serum and urine osmolality are pending. Sodium level has finally reached a safe level and we will discon tinue the hypertonic saline at this time. -Discontinue hypertonic saline -Check sodium tonight and again in the morning -Hold diuretics -Discontinued desmopressin Epigastric abdominal pain-CT scan did document a hypodense lesion in the head of the pancreas. The patient reports that this was seen at recent imaging with her attending anesthesiologist at [facility]. The plan from the gastroenterology folks was to repeat the scan in a few months and additional work-up is indicated from there. 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 -PPI -Outpatient follow-up with her attending anesthesiologist Jim Correia MD
[2020-12-01] MEDS: Melatonin 3 MG Tab PO PRN (21:46)
[2020-12-02] MEDS: Acetaminophen 325 MG Tab PO PRN ×2 (04:56→16:19)
[2020-12-02] MEDS: Multivitamins with Iron Tab.Chew PO SCH (08:26)
[2020-12-02] MEDS: Pantoprazole 40 MG Tab.CR PO SCH (08:26)
[2020-12-02] MEDS: Gabapentin 300 MG Cap PO SCH ×3 (08:26→20:39)
[2020-12-02] MEDS: HYDROmorphone 2 MG Tab PO PRN ×2 (10:40→20:44)
[2020-12-02] MEDS ORDERED: Furosemide 20 MG/2 ML VIAL IVPUSH ONE (14:30)
--- NOTE | 2020-12-02 14:31 | PCM.PN ---
- General Info Date of Service: 12/02/20 Subjective Update: Ms. Grove has been stable over the past 24 hours. Sodium level this morning was up to 132. In the process of correcting her sodium level she has gained weight and experience fluid retention. She does have known underlying cirrhosis and has had intermittent difficulty with peripheral edema. Functional Status: Reports: Tolerating Diet, Ambulating, Urinating - Review of Systems General: Reports: Weakness, Fatigue. Denies: Fever, Chills Pulmonary: Reports: No Symptoms Cardiovascular: Reports: Edema. Denies: Chest Pain, Dyspnea on Exertion, Orthopnea, PND, Lightheadedness Gastrointestinal: Reports: No Symptoms Genitourinary: Reports: No Symptoms - Patient Data Vitals - Most Recent: Last Vital Signs Temp 97.1 F 12/02/20 12:00 Pulse 85 12/02/20 12:00 Resp 16 12/02/20 12:00 BP 118/65 12/02/20 12:00 Pulse Ox 100 12/02/20 12:00 Weight - Most Recent: 196 lb 3.2 oz I&O - Last 24 Hours: Intake & Output 12/01/20 12/02/20 12/02/20 22:59 06:59 14:59 Intake Total 405 446 Output Total 1000 850 300 Balance -167 -404 -300 Lab Results Last 24 Hours: Laboratory Results - last 24 hr 11/29/20 11/29/20 12/01/20 Range/Units 11:00 13:53 20:58 Sodium 128 L (140-148) mmol/L Potassium (3.6-5.2) mmol/L Chloride (100-108) mmol/L Carbon Dioxide (21-32) mmol/L Anion Gap (5.0-14.0) mmol/L BUN (7-18) mg/dL Creatinine (0.6-1.0) mg/dL Est Cr Clr Drug Dosing mL/min Estimated GFR (MDRD) (>60) Glucose (74-106) mg/dL Plasma/Ser Osmolality 240 L (275-295) mOsmol/kg Calcium (8.5-10.1) mg/dL Urine Osmolality 459 (.) mOsmol/kg 12/02/20 Range/Units 04:15 Sodium 132 L (140-148) mmol/L Potassium 4.3 (3.6-5.2) mmol/L Chloride 101 (100-108) mmol/L Carbon Dioxide 21 (21-32) mmol/L Anion Gap 14.3 H (5.0-14.0) mmol/L BUN 4 L (7-18) mg/dL Creatinine 0.5 L (0.6-1.0) mg/dL Est Cr Clr Drug Dosing 120.11 mL/min Estimated GFR (MDRD) > 60 (>60) Glucose 69 L (74-106) mg/dL Plasma/Ser Osmolality (275-295) mOsmol/kg Calcium 8.2 L (8.5-10.1) mg/dL Urine Osmolality (.) mOsmol/kg Med Orders - Current: Current Medications Acetaminophen (Acetaminophen 325 Mg Tab) 650 mg PO Q4H PRN PRN Reason: Pain/Fever Last Admin: 12/02/20 04:56 Dose: 650 mg Documented by: Dicyclomine HCl (Dicyclomine 10 Mg Cap) 10 mg PO QIDACANDBED PRN PRN Reason: abdominal cramping Furosemide (Furosemide 20 Mg/2 Ml Vial) 20 mg IVPUSH NOW ONE Stop: 12/02/20 14:31 Gabapentin (Gabapentin 300 Mg Cap) 600 mg PO TID [facility] Last Admin: 12/02/20 08:26 Dose: 600 mg Documented by: Hydromorphone HCl (Hydromorphone 1 Mg/Ml Syringe) 1 mg IV Q2H PRN PRN Reason: Pain (severe 7-10) Last Admin: 11/29/20 09:07 Dose: 1 mg Documented by: Hydromorphone HCl (Hydromorphone 2 Mg Tab) 2 mg PO Q4H PRN PRN Reason: Pain (moderate 4-6) Last Admin: 12/02/20 10:40 Dose: 2 mg Documented by: Melatonin (Melatonin 3 Mg Tab) 9 mg PO BEDTIME PRN PRN Reason: Insomnia Last Admin: 12/01/20 21:46 Dose: 9 mg Documented by: Multivitamins/Iron (Multivitamins With Iron Tab.Chew) 2 tab PO DAILY [facility] Last Admin: 12/02/20 08:26 Dose: 2 tab Documented by: Ondansetron HCl (Ondansetron 4 Mg/2 Ml Sdv) 4 mg IVPUSH Q6H PRN PRN Reason: Nausea Pantoprazole Sodium (Pantoprazole 40 Mg Tab.Cr) 40 mg PO ACBREAKFAST [facility] Last Admin: 12/02/20 08:26 Dose: 40 mg Documented by: Spironolactone (Spironolactone 25 Mg Tab) 50 mg PO BID [facility] Discontinued Medications Desmopressin Acetate (Desmopressin 4 Mcg/1 Ml Amp) 1 mcg SUBCUT Q8H [facility] Last Admin: 11/30/20 16:29 Dose: Not Given Documented by: Fentanyl (Fentanyl 100 Mcg/2 Ml Sdv) Confirm Administered Dose 100 mcg .ROUTE .STK-MED ONE Stop: 11/29/20 07:15 Hydromorphone HCl (Hydromorphone 1 Mg/Ml Syringe) 1 mg IVPUSH ONETIME ONE Stop: 11/28/20 00:27 Last Admin: 11/28/20 00:36 Dose: 1 mg Documented by: Sodium Chloride (Normal Saline) 1,000 mls @ 999 mls/hr IV ASDIRECTED [facility] Last Admin: 11/28/20 00:20 Dose: 999 mls/hr Documented by: Sodium Chloride (Normal Saline) 80 mls @ 3.5 mls/sec IV ASDIRECTED [facility] Last Admin: 11/28/20 00:56 Dose: 2.5 mls/sec Documented by: Sodium Chloride (Normal Saline) 1,000 mls @ 150 mls/hr IV ASDIRECTED [facility] Last Admin: 11/28/20 15:47 Dose: 150 mls/hr Documented by: Magnesium Sulfate (Magnesium Sulfate In Water 2 Gm/50 Ml) 2 gm in 50 mls @ 25 mls/hr IV Q6H [facility] Stop: 12/01/20 04:59 Last Admin: 11/29/20 03:23 Dose: 25 mls/hr Documented by: Sodium Chloride (Sodium Chloride 3%) 500 mls @ 18 mls/hr IV ASDIRECTED [facility] Last Admin: 11/28/20 17:33 Dose: 18 mls/hr Documented by: Potassium Phosphate 15 mmol/ (Premix) 250 mls @ 85 mls/hr IV Q3H [facility] Stop: 11/29/20 17:57 Last Admin: 11/29/20 16:30 Dose: 85 mls/hr Documented by: Sodium Chloride (Sodium Chloride 3%) 500 mls @ 22 mls/hr IV ASDIRECTED [facility] Sodium Chloride (Sodium Chloride 3%) 50 mls @ 100 mls/hr IV ONETIME ONE Stop: 11/29/20 12:29 Last Admin: 11/29/20 13:00 Dose: 100 mls/hr Documented by: Sodium Chloride (Sodium Chloride 3%) 500 mls @ 45 mls/hr IV ASDIRECTED [facility] Last Admin: 11/30/20 21:17 Dose: 45 mls/hr Documented by: Sodium Chloride (Sodium Chloride 3%) 500 mls @ 50 mls/hr IV ASDIRECTED [facility] Last Admin: 12/01/20 09:03 Dose: 50 mls/hr Documented by: Iopamidol (Iopamidol 612 Mg/Ml 500 Ml Multipack Bottle) 108 ml IV ONETIME ONE Stop: 11/28/20 00:28 Last Admin: 11/28/20 00:55 Dose: 108 ml Documented by: Ketorolac Tromethamine (Ketorolac 30 Mg/Ml Sdv) 15 mg IVPUSH ONETIME ONE Stop: 11/27/20 23:08 Last Admin: 11/27/20 23:25 Dose: 15 mg Documented by: Midazolam HCl (Midazolam 1 Mg/Ml 2 Ml Sdv) Confirm Administered Dose 2 mg .ROUTE .STK-MED ONE Stop: 11/29/20 07:15 Pantoprazole Sodium (Pantoprazole 40 Mg Vial) 40 mg IVPUSH ONETIME ONE Stop: 11/29/20 07:46 Last Admin: 11/29/20 07:50 Dose: 40 mg Documented by: Propofol (Propofol 200 Mg/20 Ml Sdv) Confirm Administered Dose 200 mg .ROUTE .STK-MED ONE Stop: 11/29/20 07:15 Sodium Chloride (Sodium Chloride 0.9% 10 Ml Syringe) 10 ml FLUSH ASDIRECTED PRN PRN Reason: Keep Vein Open Last Admin: 11/27/20 23:26 Dose: 10 ml Documented by: Sodium Chloride (Sodium Chloride 0.9% 10 Ml Syringe) 10 ml FLUSH ONETIME ONE Stop: 11/28/20 00:28 Last Admin: 11/28/20 00:56 Dose: 10 ml Documented by: - Exam General: Alert, Oriented, Cooperative, Mild Distress Lungs: Clear to Auscultation, Normal Respiratory Effort Cardiovascular: Regular Rate, Regular Rhythm, No Murmurs GI/Abdominal Exam: Soft, Non-Tender, No Organomegaly, No Distention Extremities: Non-Tender, Pedal Edema - Patient Data Lab Results Last 24 hrs: Laboratory Results - last 24 hr 11/29/20 11/29/20 12/01/20 Range/Units 11:00 13:53 20:58 Sodium 128 L (140-148) mmol/L Potassium (3.6-5.2) mmol/L Chloride (100-108) mmol/L Carbon Dioxide (21-32) mmol/L Anion Gap (5.0-14.0) mmol/L BUN (7-18) mg/dL Creatinine (0.6-1.0) mg/dL Est Cr Clr Drug Dosing mL/min Estimated GFR (MDRD) (>60) Glucose (74-106) mg/dL Plasma/Ser Osmolality 240 L (275-295) mOsmol/kg Calcium (8.5-10.1) mg/dL Urine Osmolality 459 (.) mOsmol/kg 12/02/20 Range/Units 04:15 Sodium 132 L (140-148) mmol/L Potassium 4.3 (3.6-5.2) mmol/L Chloride 101 (100-108) mmol/L Carbon Dioxide 21 (21-32) mmol/L Anion Gap 14.3 H (5.0-14.0) mmol/L BUN 4 L (7-18) mg/dL Creatinine 0.5 L (0.6-1.0) mg/dL Est Cr Clr Drug Dosing 120.11 mL/min Estimated GFR (MDRD) > 60 (>60) Glucose 69 L (74-106) mg/dL Plasma/Ser Osmolality (275-295) mOsmol/kg Calcium 8.2 L (8.5-10.1) mg/dL Urine Osmolality (.) mOsmol/kg Result Diagrams: 12/01/20 04:20 12/02/20 04:15 Sepsis Event Note - Evaluation Sepsis Screening Result: No Definite Risk - Focused Exam Vital Signs: Vital Signs Temp Pulse Resp BP Pulse Ox 12/02/20 12:00 97.1 F 85 16 118/65 100 12/02/20 08:20 97.1 F 80 16 115/63 100 12/02/20 02:29 97.0 F 92 18 119/69 100 - Problem List Review Problem List Initiated/Reviewed/Updated: Yes - My Orders Last 24 Hours: My Active Orders 12/02/20 14:30 Furosemide [Lasix] 20 mg IVPUSH NOW ONE 12/02/20 21:00 Spironolactone [Aldactone] 50 mg PO BID 12/03/20 05:00 BASIC METABOLIC PANEL,BMP [CHEM] Timed - Plan Plan:: ASSESSMENT AND RECOMMENDATIONS Hyponatremia, severe-suspect hypovolemic hyponatremia in the setting of chronic diuretic use versus possibly medication side effect with SSRI or trazodone. Sodium level improved to 132 -Recheck sodium in a.m. -Discontinued desmopressin Peripheral edema -Resume spironolactone 50 mg twice daily -Furosemide 20 mg IV now, reassess in a.m. Epigastric abdominal pain-CT scan did document a hypodense lesion in the head of the pancreas. The patient reports that this was seen at recent imaging with her graphic designer at [facility]. The plan from the gastroenterology folks was to repeat the scan in a few months and additional work-up is indicated from there. 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 -PPI -Outpatient follow-up with her graphic designer
[2020-12-02] MEDS: Spironolactone 25 MG Tab PO SCH (20:39)
[2020-12-02] MEDS: Melatonin 3 MG Tab PO PRN (21:53)
[2020-12-03] MEDS: Pantoprazole 40 MG Tab.CR PO SCH (07:19)
[2020-12-03] MEDS: Multivitamins with Iron Tab.Chew PO SCH (08:19)
[2020-12-03] MEDS: Spironolactone 25 MG Tab PO SCH ×2 (08:19→21:55)
[2020-12-03] MEDS: Gabapentin 300 MG Cap PO SCH ×3 (08:19→21:55)
[2020-12-03] MEDS: HYDROmorphone 2 MG Tab PO PRN ×2 (08:22→21:56)
[2020-12-03] MEDS ORDERED: Furosemide 20 MG/2 ML VIAL IVPUSH ONE (08:45)
--- NOTE | 2020-12-03 13:05 | PCM.PN ---
- General Info Date of Service: 12/03/20 Subjective Update: Ms. Grove has done well over the last 24 hours. Excellent diuresis with IV furosemide and sodium level has remained stable. Functional Status: Reports: Tolerating Diet, Ambulating, Urinating - Review of Systems General: Reports: Weakness, Fatigue. Denies: Fever, Chills Pulmonary: Reports: No Symptoms Cardiovascular: Reports: No Symptoms Gastrointestinal: Reports: No Symptoms Genitourinary: Reports: No Symptoms - Patient Data Vitals - Most Recent: Last Vital Signs Temp 96.3 F L 12/03/20 11:00 Pulse 91 12/03/20 11:00 Resp 14 12/03/20 11:00 BP 125/73 12/03/20 11:00 Pulse Ox 100 12/03/20 11:00 Weight - Most Recent: 196 lb I&O - Last 24 Hours: Intake & Output 12/02/20 12/03/20 12/03/20 22:59 06:59 14:59 Intake Total 508 876 8247 Output Total 2200 650 800 Balance -1900 -150 355 Lab Results Last 24 Hours: Laboratory Results - last 24 hr 12/03/20 Range/Units 05:25 Sodium 132 L (140-148) mmol/L Potassium 3.6 (3.6-5.2) mmol/L Chloride 99 L (100-108) mmol/L Carbon Dioxide 26 (21-32) mmol/L Anion Gap 10.6 (5.0-14.0) mmol/L BUN 5 L (7-18) mg/dL Creatinine 0.6 (0.6-1.0) mg/dL Est Cr Clr Drug Dosing 100.09 mL/min Estimated GFR (MDRD) > 60 (>60) Glucose 98 (74-106) mg/dL Calcium 8.7 (8.5-10.1) mg/dL Med Orders - Current: Current Medications Acetaminophen (Acetaminophen 325 Mg Tab) 650 mg PO Q4H PRN PRN Reason: Pain/Fever Last Admin: 12/02/20 16:19 Dose: 650 mg Documented by: Dicyclomine HCl (Dicyclomine 10 Mg Cap) 10 mg PO QIDACANDBED PRN PRN Reason: abdominal cramping Gabapentin (Gabapentin 300 Mg Cap) 600 mg PO TID [facility] Last Admin: 12/03/20 08:19 Dose: 600 mg Documented by: Hydromorphone HCl (Hydromorphone 1 Mg/Ml Syringe) 1 mg IV Q2H PRN PRN Reason: Pain (severe 7-10) Last Admin: 11/29/20 09:07 Dose: 1 mg Documented by: Hydromorphone HCl (Hydromorphone 2 Mg Tab) 2 mg PO Q4H PRN PRN Reason: Pain (moderate 4-6) Last Admin: 12/03/20 08:22 Dose: 2 mg Documented by: Melatonin (Melatonin 3 Mg Tab) 9 mg PO BEDTIME PRN PRN Reason: Insomnia Last Admin: 12/02/20 21:53 Dose: 9 mg Documented by: Multivitamins/Iron (Multivitamins With Iron Tab.Chew) 2 tab PO DAILY [facility] Last Admin: 12/03/20 08:19 Dose: 2 tab Documented by: Ondansetron HCl (Ondansetron 4 Mg/2 Ml Sdv) 4 mg IVPUSH Q6H PRN PRN Reason: Nausea Pantoprazole Sodium (Pantoprazole 40 Mg Tab.Cr) 40 mg PO ACBREAKFAST [facility] Last Admin: 12/03/20 07:19 Dose: 40 mg Documented by: Spironolactone (Spironolactone 25 Mg Tab) 50 mg PO BID [facility] Last Admin: 12/03/20 08:19 Dose: 50 mg Documented by: Discontinued Medications Desmopressin Acetate (Desmopressin 4 Mcg/1 Ml Amp) 1 mcg SUBCUT Q8H [facility] Last Admin: 11/30/20 16:29 Dose: Not Given Documented by: Fentanyl (Fentanyl 100 Mcg/2 Ml Sdv) Confirm Administered Dose 100 mcg .ROUTE .STK-MED ONE Stop: 11/29/20 07:15 Furosemide (Furosemide 20 Mg/2 Ml Vial) 20 mg IVPUSH NOW ONE Stop: 12/02/20 14:31 Last Admin: 12/02/20 14:42 Dose: 20 mg Documented by: Furosemide (Furosemide 20 Mg/2 Ml Vial) 20 mg IVPUSH NOW ONE Stop: 12/03/20 08:46 Last Admin: 12/03/20 08:54 Dose: 20 mg Documented by: Hydromorphone HCl (Hydromorphone 1 Mg/Ml Syringe) 1 mg IVPUSH ONETIME ONE Stop: 11/28/20 00:27 Last Admin: 11/28/20 00:36 Dose: 1 mg Documented by: Sodium Chloride (Normal Saline) 1,000 mls @ 999 mls/hr IV ASDIRECTED [facility] Last Admin: 11/28/20 00:20 Dose: 999 mls/hr Documented by: Sodium Chloride (Normal Saline) 80 mls @ 3.5 mls/sec IV ASDIRECTED [facility] Last Admin: 11/28/20 00:56 Dose: 2.5 mls/sec Documented by: Sodium Chloride (Normal Saline) 1,000 mls @ 150 mls/hr IV ASDIRECTED [facility] Last Admin: 11/28/20 15:47 Dose: 150 mls/hr Documented by: Magnesium Sulfate (Magnesium Sulfate In Water 2 Gm/50 Ml) 2 gm in 50 mls @ 25 mls/hr IV Q6H [facility] Stop: 12/01/20 04:59 Last Admin: 11/29/20 03:23 Dose: 25 mls/hr Documented by: Sodium Chloride (Sodium Chloride 3%) 500 mls @ 18 mls/hr IV ASDIRECTED [facility] Last Admin: 11/28/20 17:33 Dose: 18 mls/hr Documented by: Potassium Phosphate 15 mmol/ (Premix) 250 mls @ 85 mls/hr IV Q3H [facility] Stop: 11/29/20 17:57 Last Admin: 11/29/20 16:30 Dose: 85 mls/hr Documented by: Sodium Chloride (Sodium Chloride 3%) 500 mls @ 22 mls/hr IV ASDIRECTED [facility] Sodium Chloride (Sodium Chloride 3%) 50 mls @ 100 mls/hr IV ONETIME ONE Stop: 11/29/20 12:29 Last Admin: 11/29/20 13:00 Dose: 100 mls/hr Documented by: Sodium Chloride (Sodium Chloride 3%) 500 mls @ 45 mls/hr IV ASDIRECTED [facility] Last Admin: 11/30/20 21:17 Dose: 45 mls/hr Documented by: Sodium Chloride (Sodium Chloride 3%) 500 mls @ 50 mls/hr IV ASDIRECTED [facility] Last Admin: 12/01/20 09:03 Dose: 50 mls/hr Documented by: Iopamidol (Iopamidol 612 Mg/Ml 500 Ml Multipack Bottle) 108 ml IV ONETIME ONE Stop: 11/28/20 00:28 Last Admin: 11/28/20 00:55 Dose: 108 ml Documented by: Ketorolac Tromethamine (Ketorolac 30 Mg/Ml Sdv) 15 mg IVPUSH ONETIME ONE Stop: 11/27/20 23:08 Last Admin: 11/27/20 23:25 Dose: 15 mg Documented by: Midazolam HCl (Midazolam 1 Mg/Ml 2 Ml Sdv) Confirm Administered Dose 2 mg .ROUTE .STK-MED ONE Stop: 11/29/20 07:15 Pantoprazole Sodium (Pantoprazole 40 Mg Vial) 40 mg IVPUSH ONETIME ONE Stop: 11/29/20 07:46 Last Admin: 11/29/20 07:50 Dose: 40 mg Documented by: Propofol (Propofol 200 Mg/20 Ml Sdv) Confirm Administered Dose 200 mg .ROUTE .STK-MED ONE Stop: 11/29/20 07:15 Sodium Chloride (Sodium Chloride 0.9% 10 Ml Syringe) 10 ml FLUSH ASDIRECTED PRN PRN Reason: Keep Vein Open Last Admin: 11/27/20 23:26 Dose: 10 ml Documented by: Sodium Chloride (Sodium Chloride 0.9% 10 Ml Syringe) 10 ml FLUSH ONETIME ONE Stop: 11/28/20 00:28 Last Admin: 11/28/20 00:56 Dose: 10 ml Documented by: - Exam General: Alert, Oriented, Cooperative, Mild Distress Lungs: Clear to Auscultation, Normal Respiratory Effort Cardiovascular: Regular Rate, Regular Rhythm, No Murmurs GI/Abdominal Exam: Soft, Non-Tender, No Organomegaly, No Distention Extremities: Pedal Edema - Patient Data Lab Results Last 24 hrs: Laboratory Results - last 24 hr 12/03/20 Range/Units 05:25 Sodium 132 L (140-148) mmol/L Potassium 3.6 (3.6-5.2) mmol/L Chloride 99 L (100-108) mmol/L Carbon Dioxide 26 (21-32) mmol/L Anion Gap 10.6 (5.0-14.0) mmol/L BUN 5 L (7-18) mg/dL Creatinine 0.6 (0.6-1.0) mg/dL Est Cr Clr Drug Dosing 100.09 mL/min Estimated GFR (MDRD) > 60 (>60) Glucose 98 (74-106) mg/dL Calcium 8.7 (8.5-10.1) mg/dL Result Diagrams: 12/01/20 04:20 12/03/20 05:25 Sepsis Event Note - Evaluation Sepsis Screening Result: No Definite Risk - Focused Exam Vital Signs: Vital Signs Temp Pulse Resp BP Pulse Ox 12/03/20 11:00 96.3 F L 91 14 125/73 100 12/03/20 07:14 97.2 F 95 16 134/81 100 12/03/20 02:25 96.6 F L 84 18 112/84 100 - Problem List Review Problem List Initiated/Reviewed/Updated: Yes - My Orders Last 24 Hours: My Active Orders 12/02/20 21:00 Spironolactone [Aldactone] 50 mg PO BID 12/03/20 07:46 Daily Weight [Height and Weight] [RC] DAILY 12/03/20 Lunch Fluid Restriction [DIET] 12/04/20 05:00 BASIC METABOLIC PANEL,BMP [CHEM] Timed - Plan Plan:: ASSESSMENT AND RECOMMENDATIONS Hyponatremia, severe-improved, sodium level stable at 132 despite diuresis -Recheck sodium in a.m. -Discontinued desmopressin Peripheral edema -Resume spironolactone 50 mg twice daily -Furosemide 20 mg IV twice today, reassess in a.m. Epigastric abdominal pain-CT scan did document a hypodense lesion in the head of the pancreas. The patient reports that this was seen at recent imaging with her icer hand at [facility] in [place]. The plan from the gastroenterology folks was to repeat the scan in a few months and additional work-up is indicated from there. 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 Epigastric pain has improved over the past few days -PPI -Outpatient follow-up with her icer hand
[2020-12-03] MEDS: Acetaminophen 325 MG Tab PO PRN (16:11)
[2020-12-03] MEDS: Melatonin 3 MG Tab PO PRN (21:56)
[2020-12-04] MEDS: HYDROmorphone 2 MG Tab PO PRN (08:02)
[2020-12-04] MEDS: Gabapentin 300 MG Cap PO SCH (08:07)
[2020-12-04] MEDS: Multivitamins with Iron Tab.Chew PO SCH (08:08)
[2020-12-04] MEDS: Pantoprazole 40 MG Tab.CR PO SCH (08:09)
[2020-12-04] MEDS: Spironolactone 25 MG Tab PO SCH (08:10)
[2020-12-04] MEDS ORDERED: Furosemide 20 MG Tab PO SCH (08:15)
--- NOTE | 2020-12-04 09:21 | US ---
VL Duplex Lwr Ext Veins Ltd Lt INDICATION: left lower leg/foot swollen FINDINGS: Ultrasound examination of the lower extremity using Doppler and compressive technique demonstrates that the common femoral, femoral, and popliteal veins are patent, and negative for thrombus. The calf veins were segmentally visualized and are negative where seen. IMPRESSION: Negative for deep venous thrombosis.
--- NOTE | 2020-12-04 11:01 | PCM.DCSUM1 ---
Discharge Summary - Hospital Course Brief History: Ms. Grove is a 45-year-old woman who was admitted with abdominal pain and severe hyponatremia. - Discharge Data Discharge Date: 12/04/20 Discharge Disposition: Home, Self-Care 01 Condition: Stable - Referral to Home Health Primary Care Physician: Rick James MD - Discharge Diagnosis/Problem(s) (1) Ascites SNOMED Code(s): 246711608 ICD Code: R18.8 - OTHER ASCITES Status: Acute Current Visit: No Qualifiers: Ascites type: due to alcoholic cirrhosis Qualified Code(s): K70.31 - Alcoholic cirrhosis of liver with ascites (2) Cirrhosis of liver SNOMED Code(s): 32662567 ICD Code: K74.60 - UNSPECIFIED CIRRHOSIS OF LIVER Status: Acute Current Visit: No Qualifiers: Hepatic cirrhosis type: alcoholic cirrhosis Ascites presence: without ascites Qualified Code(s): K70.30 - Alcoholic cirrhosis of liver without ascites (3) Dehydration SNOMED Code(s): 82275466 ICD Code: E86.0 - DEHYDRATION Status: Acute Current Visit: No (4) Hyponatremia SNOMED Code(s): 21694362 ICD Code: E87.1 - HYPO-OSMOLALITY AND HYPONATREMIA Status: Acute Priority: High Current Visit: Yes (5) Gastritis SNOMED Code(s): 6694531 ICD Code: K29.70 - GASTRITIS, UNSPECIFIED, WITHOUT BLEEDING Status: Acute Current Visit: Yes - Patient Summary/Data Consults: Consultations 11/28/20 07:04 Consult to Physician [CONS] Routine Consulting Provider: Jim Correia Call Completed to Consulting Physician: Yes: will call at 0800 Reason for Consult: hyponatremia 11/29/20 08:33 Consult to Manager Of Compensation [CONS] Routine Comment: Physician Instructions: Quantity: Reason for Consult: BAR F/U Hospital Course: Ms. Grove was admitted for management of upper abdominal pain and hyponatre daniella. She reports a history of cirrhosis. About 2 months ago she noticed that when she was starting to gain weight and over the next few weeks had a significant and nearly 30 pound weight gain. She was evaluated by her pantograph ii engraver who increased her dose of diuretics because 2 attempts at paracentesis were unsuccessful. Over the next several weeks she lost all of the weight that she had gained and possibly a little bit more. Her diuretics were decreased but not back to her baseline level. Over the past several days she has had progressive abdominal pain. Initially it was lower abdominal pain but has progressed and moved up to more of an upper abdominal/epigastric pain. The pain is cramping most of the time but she does have some sharp shooting pains. Pain is quite severe at times though often is about moderate in nature. Given normal saline without significant improvement in sodium levels so she was transitioned to hypertonic saline any sodium level did slowly increase with this intervention. EGD was performed by Dr. Gonsalez and did show evidence of significant gastritis, she was started on proton pump inhibitor therapy with Protonix and abdominal pain slowly improved through the rest of her hospital stay. She did develop some peripheral edema and was treated with increased doses of furosemide, sodium level remained stable in the range of 132 with diuretic therapy. On the day of discharge she was noted to have increased swelling in the left lower extremity, venous Doppler study was obtained that showed no evidence of deep vein thrombosis. Because of her dehydration noted on admission she will be discharged on decreased doses of diuretic therapy with oral furosemide and spironolactone. Follow-up appointment will be scheduled with Dr. James for December 06 and a sodium level will be obtained at that time. Activity will be as tolerated and she will resume her usual diet. - Patient Instructions Diet: Low Sodium Activity: As Tolerated Other/Special Instructions: Follow-up appointment with Dr. James for December 06, BMP should be obtained at the time of that follow-up appointment - Discharge Plan *PRESCRIPTION DRUG MONITORING PROGRAM REVIEWED*: Not Applicable *COPY OF PRESCRIPTION DRUG MONITORING REPORT IN PATIENT FARHAT: Not Applicable Prescriptions/Med Rec: Pantoprazole [ProTONIX] 40 mg PO ACBREAKFAST #30 tab.cr Home Medications: Home Meds Multivitamin [Multi-Vitamin Daily] 1 tab PO DAILY 12/02/15 [History] Gabapentin [Neurontin] 600 mg PO TID 07/13/18 [History] Albuterol Sulfate [Proair Respiclick] 1 - 2 puff IH Q4HR PRN 08/10/18 [History] Cyanocobalamin (Vitamin B-12) [Vitamin B-12] 1,000 mcg SL DAILY 08/10/18 [History] Magnesium 400 mg PO BID 11/23/18 [History] Citalopram [Citalopram HBr] 20 mg PO DAILY #30 tablet 04/14/19 [Rx] Lidocaine/Prilocaine [EMLA Crm] 1 applic TP ASDIRECTED PRN 10/30/20 [History] Ondansetron [Zofran ODT] 4 mg PO Q6H PRN 10/30/20 [History] SUMAtriptan succinate [Imitrex] 100 mg PO ASDIRECTED PRN 10/30/20 [History] traZODone 50 mg PO BEDTIME 10/30/20 [History] Potassium Chloride [Potassium Chloride Solution] 20 meq PO TID 11/07/20 [History] Dicyclomine [Bentyl] 10 mg PO TID 11/19/20 [History] Furosemide [Lasix] 20 mg PO BID #0 12/04/20 [Rx] Pantoprazole [ProTONIX] 40 mg PO ACBREAKFAST #30 tab.cr 12/04/20 [Rx] Spironolactone [Aldactone] 50 mg PO BID #0 12/04/20 [Rx] Patient Handouts: Hyponatremia, [id number] Referrals: Rick James MD [Primary Care Provider] - 12/06/20 11:45 am (Please arrive 15 minutes early to reister for your appointment. You will need your Sodium level drawn at appointment.) Kathryn Wright PA-C [Physician Rhit] - 12/11/20 11:00 am (Please arrive 15 minutes early to register for your appointment.) - Discharge Summary/Plan Comment DC Time >30 min.: No Total # of Minutes for Discharge Time: 20 - Patient Data Vitals - Most Recent: Last Vital Signs Temp 97.2 F 12/04/20 07:16 Pulse 77 12/04/20 07:16 Resp 16 12/04/20 07:16 BP 109/66 12/04/20 07:16 Pulse Ox 96 12/04/20 07:16 Weight - Most Recent: 195 lb 12.8 oz I&O - Last 24 hours: Intake & Output 12/03/20 12/04/20 12/04/20 22:59 06:59 14:59 Intake Total 900 445 990 Output Total 7859 145 2992 Balance -300 -994 -003 Lab Results - Last 24 hrs: Laboratory Results - last 24 hr 12/04/20 Range/Units 06:11 Sodium 132 L (140-148) mmol/L Potassium 3.6 (3.6-5.2) mmol/L Chloride 99 L (100-108) mmol/L Carbon Dioxide 24 (21-32) mmol/L Anion Gap 12.6 (5.0-14.0) mmol/L BUN 7 (7-18) mg/dL Creatinine 0.7 (0.6-1.0) mg/dL Est Cr Clr Drug Dosing 85.79 mL/min Estimated GFR (MDRD) > 60 (>60) Glucose 93 (74-106) mg/dL Calcium 8.7 (8.5-10.1) mg/dL Med Orders - Current: Current Medications Acetaminophen (Acetaminophen 325 Mg Tab) 650 mg PO Q4H PRN PRN Reason: Pain/Fever Last Admin: 12/03/20 16:11 Dose: 650 mg Documented by: Dicyclomine HCl (Dicyclomine 10 Mg Cap) 10 mg PO QIDACANDBED PRN PRN Reason: abdominal cramping Furosemide (Furosemide 20 Mg Tab) 20 mg PO BIDDIURETIC [facility] Last Admin: 12/04/20 09:32 Dose: 20 mg Documented by: Gabapentin (Gabapentin 300 Mg Cap) 600 mg PO TID [facility] Last Admin: 12/04/20 08:07 Dose: 600 mg Documented by: Hydromorphone HCl (Hydromorphone 1 Mg/Ml Syringe) 1 mg IV Q2H PRN PRN Reason: Pain (severe 7-10) Last Admin: 11/29/20 09:07 Dose: 1 mg Documented by: Hydromorphone HCl (Hydromorphone 2 Mg Tab) 2 mg PO Q4H PRN PRN Reason: Pain (moderate 4-6) Last Admin: 12/04/20 08:02 Dose: 2 mg Documented by: Melatonin (Melatonin 3 Mg Tab) 9 mg PO BEDTIME PRN PRN Reason: Insomnia Last Admin: 12/03/20 21:56 Dose: 9 mg Documented by: Multivitamins/Iron (Multivitamins With Iron Tab.Chew) 2 tab PO DAILY [facility] Last Admin: 12/04/20 08:08 Dose: 2 tab Documented by: Ondansetron HCl (Ondansetron 4 Mg/2 Ml Sdv) 4 mg IVPUSH Q6H PRN PRN Reason: Nausea Pantoprazole Sodium (Pantoprazole 40 Mg Tab.Cr) 40 mg PO ACBREAKFAST [facility] Last Admin: 12/04/20 08:09 Dose: 40 mg Documented by: Spironolactone (Spironolactone 25 Mg Tab) 50 mg PO BID [facility] Last Admin: 12/04/20 08:10 Dose: 50 mg Documented by: Discontinued Medications Desmopressin Acetate (Desmopressin 4 Mcg/1 Ml Amp) 1 mcg SUBCUT Q8H [facility] Last Admin: 11/30/20 16:29 Dose: Not Given Documented by: Fentanyl (Fentanyl 100 Mcg/2 Ml Sdv) Confirm Administered Dose 100 mcg .ROUTE .STK-MED ONE Stop: 11/29/20 07:15 Furosemide (Furosemide 20 Mg/2 Ml Vial) 20 mg IVPUSH NOW ONE Stop: 12/02/20 14:31 Last Admin: 12/02/20 14:42 Dose: 20 mg Documented by: Furosemide (Furosemide 20 Mg/2 Ml Vial) 20 mg IVPUSH NOW ONE Stop: 12/03/20 08:46 Last Admin: 12/03/20 08:54 Dose: 20 mg Documented by: Hydromorphone HCl (Hydromorphone 1 Mg/Ml Syringe) 1 mg IVPUSH ONETIME ONE Stop: 11/28/20 00:27 Last Admin: 11/28/20 00:36 Dose: 1 mg Documented by: Sodium Chloride (Normal Saline) 1,000 mls @ 999 mls/hr IV ASDIRECTED [facility] Last Admin: 11/28/20 00:20 Dose: 999 mls/hr Documented by: Sodium Chloride (Normal Saline) 80 mls @ 3.5 mls/sec IV ASDIRECTED [facility] Last Admin: 11/28/20 00:56 Dose: 2.5 mls/sec Documented by: Sodium Chloride (Normal Saline) 1,000 mls @ 150 mls/hr IV ASDIRECTED [facility] Last Admin: 11/28/20 15:47 Dose: 150 mls/hr Documented by: Magnesium Sulfate (Magnesium Sulfate In Water 2 Gm/50 Ml) 2 gm in 50 mls @ 25 mls/hr IV Q6H [facility] Stop: 12/01/20 04:59 Last Admin: 11/29/20 03:23 Dose: 25 mls/hr Documented by: Sodium Chloride (Sodium Chloride 3%) 500 mls @ 18 mls/hr IV ASDIRECTED [facility] Last Admin: 11/28/20 17:33 Dose: 18 mls/hr Documented by: Potassium Phosphate 15 mmol/ (Premix) 250 mls @ 85 mls/hr IV Q3H [facility] Stop: 11/29/20 17:57 Last Admin: 11/29/20 16:30 Dose: 85 mls/hr Documented by: Sodium Chloride (Sodium Chloride 3%) 500 mls @ 22 mls/hr IV ASDIRECTED [facility] Sodium Chloride (Sodium Chloride 3%) 50 mls @ 100 mls/hr IV ONETIME ONE Stop: 11/29/20 12:29 Last Admin: 11/29/20 13:00 Dose: 100 mls/hr Documented by: Sodium Chloride (Sodium Chloride 3%) 500 mls @ 45 mls/hr IV ASDIRECTED [facility] Last Admin: 11/30/20 21:17 Dose: 45 mls/hr Documented by: Sodium Chloride (Sodium Chloride 3%) 500 mls @ 50 mls/hr IV ASDIRECTED [facility] Last Admin: 12/01/20 09:03 Dose: 50 mls/hr Documented by: Iopamidol (Iopamidol 612 Mg/Ml 500 Ml Multipack Bottle) 108 ml IV ONETIME ONE Stop: 11/28/20 00:28 Last Admin: 11/28/20 00:55 Dose: 108 ml Documented by: Ketorolac Tromethamine (Ketorolac 30 Mg/Ml Sdv) 15 mg IVPUSH ONETIME ONE Stop: 11/27/20 23:08 Last Admin: 11/27/20 23:25 Dose: 15 mg Documented by: Midazolam HCl (Midazolam 1 Mg/Ml 2 Ml Sdv) Confirm Administered Dose 2 mg .ROUTE .STK-MED ONE Stop: 11/29/20 07:15 Pantoprazole Sodium (Pantoprazole 40 Mg Vial) 40 mg IVPUSH ONETIME ONE Stop: 11/29/20 07:46 Last Admin: 11/29/20 07:50 Dose: 40 mg Documented by: Propofol (Propofol 200 Mg/20 Ml Sdv) Confirm Administered Dose 200 mg .ROUTE .STK-MED ONE Stop: 11/29/20 07:15 Sodium Chloride (Sodium Chloride 0.9% 10 Ml Syringe) 10 ml FLUSH ASDIRECTED PRN PRN Reason: Keep Vein Open Last Admin: 11/27/20 23:26 Dose: 10 ml Documented by: Sodium Chloride (Sodium Chloride 0.9% 10 Ml Syringe) 10 ml FLUSH ONETIME ONE Stop: 11/28/20 00:28 Last Admin: 11/28/20 00:56 Dose: 10 ml Documented by: - Exam General: Reports: Alert, Oriented, Cooperative, Mild Distress Lungs: Reports: Clear to Auscultation, Normal Respiratory Effort Cardiovascular: Reports: Regular Rate, Regular Rhythm, No Murmurs GI/Abdominal Exam: Soft, Non-Tender, No Organomegaly, No Distention Extremities: Non-Tender, Pedal Edema
[2020-12-04 11:10] VITALS: BP 115/64; PULSE 96
== END 2020-12-04 12:00 | disposition home or self-care (01) | DRG 241 ==
LOC: JP.ED 22:05 → JP.MS 11-28 03:25
PROVIDERS: ADMIT Surgery; ATTEND Surgery
PROC: 0DB68ZX Excision of Stomach, Via Natural or Artificial Opening Endoscopic, Diagnostic (ICD-10-PCS; principal; 2020-11-29)
DX: K29.70 Gastritis, unspecified, without bleeding (principal); E87.1 Hypo-osmolality and hyponatremia; K70.31 Alcoholic cirrhosis of liver with ascites; E86.0 Dehydration; Z20.822 Contact with and (suspected) exposure to COVID-19; E83.42 Hypomagnesemia; K86.89 Other specified diseases of pancreas; K21.9 Gastro-esophageal reflux disease without esophagitis; I85.10 Secondary esophageal varices without bleeding; F17.200 Nicotine dependence, unspecified, uncomplicated; J45.909 Unspecified asthma, uncomplicated; F41.9 Anxiety disorder, unspecified; F32.9 Major depressive disorder, single episode, unspecified; E03.9 Hypothyroidism, unspecified; E55.9 Vitamin D deficiency, unspecified; Z98.84 Bariatric surgery status; Z88.1 Allergy status to other antibiotic agents; Z88.8 Allergy status to other drugs, medicaments and biological substances; Z79.899 Other long term (current) drug therapy; Z90.49 Acquired absence of other specified parts of digestive tract; Z90.710 Acquired absence of both cervix and uterus; Z98.51 Tubal ligation status
CPT/HCPCS: 36415; 74177; 80048; 80053; 81001; 83605; 83690; 83735; 83930; 83935; 84100; 84295; 84300; 84443; 85025; 85027; 87081; 93971-26-LT; 93971-LT; 96374; 96375; 99285-25; A9270-GY; C9113; J1170; J1885; J1940; J2250; J2597; J2704; J3010; J3475; J7030; J7131; Q9967; U0002

== ENCOUNTER 2020-12-11 16:02 | Emergency (ER) | payer BC ==
[2020-12-11 16:32] VITALS: BP 151/90; PULSE 91
[2020-12-11] MEDS ORDERED: Alum Hydrox/Mag Hydrox/Simeth 15 ML, Lidocaine 2% 15 ML PO ONE ×2 (16:56)
--- NOTE | 2020-12-11 17:26 | EDM.PDOC ---
ED HPI GENERAL MEDICAL PROBLEM - General Chief Complaint: Abdominal Pain Stated Complaint: MID ABD PAIN Time Seen by Provider: 12/11/20 17:00 Source of Information: Reports: Patient History Limitations: Reports: No Limitations - History of Present Illness INITIAL COMMENTS - FREE TEXT/NARRATIVE: This is a 45-year-old female who presents with concerns of abdominal pain. She is a history of gastric bypass surgery as well as cirrhosis of the liver. She reports that since her recent admission for hyponatremia and gastritis her pain has been progressively worsening at home. She reports being started on an antispasm medication by her surgeon, but this is not helping. She reports pain primarily in the epigastrium. She has associated nausea and vomiting. She is having stools and passing gas. There is no blood in her vomit. She notes no fevers or chills. No dyspnea. Reports that the pain feels very similar to when she was recently hospitalized with gastritis without new features. Upper Abdominal Pain Score (Numeric/FACES): 9 - Related Data Allergies Allergy/AdvReac Type Severity Reaction Status Date / Time doxycycline Allergy Intermediate Rash Verified 12/11/20 16:30 erythromycin base Allergy Intermediate Rash Verified 12/11/20 16:30 procaine [From Novocain] Allergy Intermediate Rash Verified 12/11/20 16:30 Home Meds: Home Meds Multivitamin [Multi-Vitamin Daily] 1 tab PO DAILY 12/02/15 [History] Gabapentin [Neurontin] 600 mg PO TID 07/13/18 [History] Albuterol Sulfate [Proair Respiclick] 1 - 2 puff IH Q4HR PRN 08/10/18 [History] Cyanocobalamin (Vitamin B-12) [Vitamin B-12] 1,000 mcg SL DAILY 08/10/18 [History] Magnesium 400 mg PO BID 11/23/18 [History] Citalopram [Citalopram HBr] 20 mg PO DAILY #30 tablet 04/14/19 [Rx] Lidocaine/Prilocaine [EMLA Crm] 1 applic TP ASDIRECTED PRN 10/30/20 [History] Ondansetron [Zofran ODT] 4 mg PO Q6H PRN 10/30/20 [History] SUMAtriptan succinate [Imitrex] 100 mg PO ASDIRECTED PRN 10/30/20 [History] traZODone 50 mg PO BEDTIME 10/30/20 [History] Potassium Chloride [Potassium Chloride Solution] 20 meq PO TID 11/07/20 [History] Dicyclomine [Bentyl] 10 mg PO TID 11/19/20 [History] Furosemide [Lasix] 20 mg PO BID #0 12/04/20 [Rx] Pantoprazole [ProTONIX] 40 mg PO ACBREAKFAST #30 tab.cr 12/04/20 [Rx] Spironolactone [Aldactone] 50 mg PO BID #0 12/04/20 [Rx] Sucralfate 1 gm PO BID 10 Days oral.susp 12/11/20 [Rx] Past Medical History HEENT History: Reports: None Cardiovascular History: Reports: Hypertension Respiratory History: Reports: Asthma Gastrointestinal History: Reports: GERD, Other (See Below) Other Gastrointestinal History: [id number] Genitourinary History: Reports: Other (See Below) Other Genitourinary History: 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 fistula PIER WORKER History: Reports: Dysfunctional Uterine Bleeding, Musculoskeletal History: Reports: Fracture Neurological History: Reports: Migraines Psychiatric History: Reports: Addiction, Anxiety, Depression Endocrine/Metabolic History: Reports: Hypothyroidism, Vitamin D Deficiency Hematologic History: Reports: Anemia, B12 Deficiency, Blood Transfusion(s), Iron Deficiency, Other (See Below) Other Hematologic History: vitamin D def Dermatologic History: Reports: Other (See Below) Other Dermatologic History: sores on face, neck and back - Infectious Disease History Infectious Disease History: Reports: Chicken Pox, Measles - Past Surgical History HEENT Surgical History: Reports: Oral Surgery Cardiovascular Surgical History: Reports: None Respiratory Surgical History: Reports: None GI Surgical History: Reports: Bariatric Procedure, Cholecystectomy, Colonoscopy, EGD Female Surgical History: Reports: Section, Hysterectomy, Tubal Ligation Endocrine Surgical History: Reports: None Musculoskeletal Surgical History: Reports: Other (See Below) Other Musculoskeletal Surgeries/Procedures:: Ankle plate/pin - hdwe removed Social & Family History - Family History Family Medical History: No Pertinent Family History Cardiac: Reports: HI - Tobacco Use Tobacco Use Status *Q: Current Every Day Tobacco User Years of Tobacco use: 20 Packs/Tins Daily: 0.5 - Caffeine Use Caffeine Use: Reports: Soda Caffeine Use Comment: occasional soda - Recreational Drug Use Recreational Drug Use: No ED ROS GENERAL - Review of Systems Review Of Systems: See Below Constitutional: Reports: No Symptoms HEENT: Reports: No Symptoms Respiratory: Reports: No Symptoms Cardiovascular: Reports: No Symptoms Endocrine: Reports: No Symptoms GI/Abdominal: Reports: Abdominal Pain : Reports: No Symptoms Musculoskeletal: Reports: No Symptoms Skin: Reports: No Symptoms Neurological: Reports: No Symptoms Psychiatric: Reports: No Symptoms Hematologic/Lymphatic: Reports: No Symptoms Immunologic: Reports: No Symptoms ED EXAM, GI/ABD - Physical Exam Exam: See Below Exam Limited By: No Limitations General Appearance: Alert, No Apparent Distress Ears: Normal External Exam Nose: Normal Inspection Throat/Mouth: Normal Inspection Head: Atraumatic, Normocephalic Neck: Normal Inspection Respiratory/Chest: No Respiratory Distress, Lungs Clear Cardiovascular: Regular Rate, Rhythm GI/Abdominal Exam: Soft, No Distention, Tender (Mild epigastric tenderness) Back Exam: Normal Inspection Extremities: Normal Inspection Neurological: Alert, Oriented Psychiatric: Normal Affect, Normal Mood Skin Exam: Warm, Dry Course - Vital Signs Last Recorded V/S: Last Vital Signs Temp 36.4 C 12/11/20 16:29 Pulse 91 12/11/20 16:29 Resp 22 H 12/11/20 16:29 BP 151/90 H 12/11/20 16:29 Pulse Ox 100 12/11/20 16:29 - Orders/Labs/Meds Labs: Laboratory Tests 12/11/20 12/11/20 12/11/20 Range/Units 16:35 16:35 16:35 WBC 4.1 L (4.5-11.0) K/uL RBC 3.22 L (3.30-5.50) M/uL Hgb 11.3 L D (12.0-15.0) g/dL Hct 33.8 L (36.0-48.0) % MCV 105 H (80-98) fL MCH 35 H (27-31) pg MCHC 33 (32-36) % Plt Count 140 L (150-400) K/uL Sodium 130 L (140-148) mmol/L Potassium 4.2 (3.6-5.2) mmol/L Chloride 95 L (100-108) mmol/L Carbon Dioxide 26 (21-32) mmol/L Anion Gap 13.2 (5.0-14.0) mmol/L BUN 4 L (7-18) mg/dL Creatinine 0.9 (0.6-1.0) mg/dL Est Cr Clr Drug Dosing 63.92 mL/min Estimated GFR (MDRD) > 60 (>60) Glucose 99 (74-106) mg/dL Lactic Acid 1.8 (0.4-2.0) mmol/L Calcium 9.4 (8.5-10.1) mg/dL Total Bilirubin 1.2 H (0.2-1.0) mg/dL AST 98 H (15-37) U/L ALT 50 (12-78) U/L Alkaline Phosphatase 150 H (46-116) U/L Total Protein 7.9 (6.4-8.2) g/dL Albumin 3.0 L (3.4-5.0) g/dL Globulin 4.9 H (2.3-3.5) g/dL Albumin/Globulin Ratio 0.6 L (1.2-2.2) Lipase 90 (73-393) U/L Meds: Medications Discontinued Medications Generic Name Dose Route Start Last Admin Trade Name Freq PRN Reason Stop Dose Admin Al Hydroxide/Mg Hydroxide 15 0 ml 12/11/20 16:56 12/11/20 17:06 ml/ Lidocaine HCl 15 ml PO 12/11/20 16:57 30 ml ONETIME ONE Administration Sucralfate 1 gm 12/11/20 18:25 Sucralfate Suspension 1 Gm/10 Ml Cup PO 12/11/20 18:26 ONETIME ONE - Re-Assessments/Exams Free Text/Narrative Re-Assessment/Exam: 45-year-old female with history of gastric bypass, alcoholic liver disease, recent admission for hyponatremia and found to have gastritis on EGD presents with recurrent epigastric abdominal pain. Physical exam is overall reassuring, she is noted to have normal vitals. She has some tenderness in the epigastrium but the remainder of her abdomen is benign. With characteristics of her pain being very similar to her recent admission we elected to obtain screening labs that were reassuring. I discussed with her that she will always be high risk for intra-abdominal pathology given her surgical history as well as her liver disease, we are comfortable deferring imaging for tonight. I do not think that she needs a screening paracentesis. She was treated with a GI cocktail to good effect. Plan is for her to be continued on her PPI, dosed twice daily, and we will can start her on sucralfate for few days to see if this improves her symptoms. She has follow-up planned with her associate producer next week. Discharged with return precautions. 12/11/20 18:21 Departure - Departure Time of Disposition: 18:27 Disposition: Home, Self-Care 01 Clinical Impression: Epigastric pain - Discharge Information *PRESCRIPTION DRUG MONITORING PROGRAM REVIEWED*: No *COPY OF PRESCRIPTION DRUG MONITORING REPORT IN PATIENT FARHAT: No Instructions: Abdominal Pain, Adult, [id number] Referrals: Rick James MD [Primary Care Provider] - Forms: ED Department Discharge Additional Instructions: As discussed, we believe your symptoms are likely due to ongoing issues with your gastritis. We have several suggestions for this. 1) limit caffeine, alcohol, and no ibuprofen or Aleve. 2) increase your pantoprazole medication to 40 mg twice daily. 3) start taking the prescribed sucralfate. Follow-up with your associate producer as planned next week, you can review your symptoms at this time. Thank you for trusting us to care for you today. Sepsis Event Note (ED) - Focused Exam Vital Signs: Vital Signs Temp Pulse Resp BP Pulse Ox 12/11/20 16:29 36.4 C 91 22 H 151/90 H 100 12/11/20 16:22 36.4 C 91 22 H 151/90 H 100
[2020-12-11] MEDS ORDERED: Sucralfate Suspension 1 GM/10 ML Cup PO ONE (18:25)
== END 2020-12-11 18:52 | disposition home or self-care (01) ==
LOC: JP.ED 16:02
DX: R10.13 Epigastric pain (principal); I10 Essential (primary) hypertension; K21.9 Gastro-esophageal reflux disease without esophagitis; J45.909 Unspecified asthma, uncomplicated; Z72.0 Tobacco use; Z88.1 Allergy status to other antibiotic agents; Z88.4 Allergy status to anesthetic agent; Z79.899 Other long term (current) drug therapy
CPT/HCPCS: 36415; 80053; 83605; 83690; 85027; 99284; A9270

== ENCOUNTER 2020-12-15 11:15 | Emergency (ER) | payer BC ==
[2020-12-15 11:56] VITALS: BP 147/88; PULSE 92
--- NOTE | 2020-12-15 12:30 | EDM.PDOC ---
ED HPI GENERAL MEDICAL PROBLEM - General Chief Complaint: Abdominal Pain Stated Complaint: BURNING IN CHEST Time Seen by Provider: 12/15/20 12:10 Source of Information: Reports: Patient History Limitations: Reports: No Limitations - History of Present Illness INITIAL COMMENTS - FREE TEXT/NARRATIVE: 45-year-old female with chronic abdominal pain, cirrhosis from alcohol abuse who was seen just a few days ago and had a complete work-up done and responded well to a GI cocktail. Again today she is having epigastric pain radiating up into her chest, became very anxious and came in to be evaluated. She has a gastroenterology appointment tomorrow. No radiation of pain, no nausea or vomiting. Onset: Unknown/Unsure Duration: Waxing/Waning (Pain is been relatively chronic in nature according to the records) Location: Reports: Chest, Abdomen Abdomen Pain Score (Numeric/FACES): 10 - Related Data Allergies Allergy/AdvReac Type Severity Reaction Status Date / Time doxycycline Allergy Intermediate Rash Verified 12/11/20 16:30 erythromycin base Allergy Intermediate Rash Verified 12/11/20 16:30 procaine [From Novocain] Allergy Intermediate Rash Verified 12/11/20 16:30 Home Meds: Home Meds Multivitamin [Multi-Vitamin Daily] 1 tab PO DAILY 12/02/15 [History] Gabapentin [Neurontin] 600 mg PO TID 07/13/18 [History] Albuterol Sulfate [Proair Respiclick] 1 - 2 puff IH Q4HR PRN 08/10/18 [History] Cyanocobalamin (Vitamin B-12) [Vitamin B-12] 1,000 mcg SL DAILY 08/10/18 [History] Magnesium 400 mg PO BID 11/23/18 [History] Citalopram [Citalopram HBr] 20 mg PO DAILY #30 tablet 04/14/19 [Rx] Lidocaine/Prilocaine [EMLA Crm] 1 applic TP ASDIRECTED PRN 10/30/20 [History] Ondansetron [Zofran ODT] 4 mg PO Q6H PRN 10/30/20 [History] SUMAtriptan succinate [Imitrex] 100 mg PO ASDIRECTED PRN 10/30/20 [History] traZODone 50 mg PO BEDTIME 10/30/20 [History] Potassium Chloride [Potassium Chloride Solution] 20 meq PO TID 11/07/20 [History] Dicyclomine [Bentyl] 10 mg PO TID 11/19/20 [History] Furosemide [Lasix] 20 mg PO BID #0 12/04/20 [Rx] Pantoprazole [ProTONIX] 40 mg PO ACBREAKFAST #30 tab.cr 12/04/20 [Rx] Spironolactone [Aldactone] 50 mg PO BID #0 12/04/20 [Rx] Sucralfate 1 gm PO BID 10 Days oral.susp 12/11/20 [Rx] Past Medical History HEENT History: Reports: None Cardiovascular History: Reports: Hypertension Respiratory History: Reports: Asthma Gastrointestinal History: Reports: GERD, Other (See Below) Other Gastrointestinal History: RNY 2002 Genitourinary History: Reports: Other (See Below) Other Genitourinary History: 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 fistula [employer]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 History: Reports: Dysfunctional Uterine Bleeding, Musculoskeletal History: Reports: Fracture Neurological History: Reports: Migraines Psychiatric History: Reports: Addiction, Anxiety, Depression Endocrine/Metabolic History: Reports: Hypothyroidism, Vitamin D Deficiency Hematologic History: Reports: Anemia, B12 Deficiency, Blood Transfusion(s), Iron Deficiency, Other (See Below) Other Hematologic History: vitamin D def Dermatologic History: Reports: Other (See Below) Other Dermatologic History: sores on face, neck and back - Infectious Disease History Infectious Disease History: Reports: Chicken Pox, Measles - Past Surgical History HEENT Surgical History: Reports: Oral Surgery Cardiovascular Surgical History: Reports: None Respiratory Surgical History: Reports: None GI Surgical History: Reports: Bariatric Procedure, Cholecystectomy, Colonoscopy, EGD Female Surgical History: Reports: Section, Hysterectomy, Tubal Ligation Endocrine Surgical History: Reports: None Musculoskeletal Surgical History: Reports: Other (See Below) Other Musculoskeletal Surgeries/Procedures:: Ankle plate/pin - hdwe removed Social & Family History - Family History Family Medical History: No Pertinent Family History Cardiac: Reports: [facility] - Tobacco Use Tobacco Use Status *Q: Former Tobacco User Used Tobacco, but Quit: Yes Month/Year Tobacco Last Used: while ago - Caffeine Use Caffeine Use: Reports: Soda Caffeine Use Comment: occasional soda - Recreational Drug Use Recreational Drug Use: No ED ROS GENERAL - Review of Systems Review Of Systems: See Below Constitutional: Reports: Malaise, Decreased Appetite. Denies: Fever, Chills HEENT: Denies: Throat Pain Respiratory: Reports: Pleuritic Chest Pain. Denies: Shortness of Breath Cardiovascular: Reports: Chest Pain (Substernal burning). Denies: Dyspnea on Exertion, Palpitations GI/Abdominal: Reports: Abdominal Pain, Nausea. Denies: Vomiting : Reports: No Symptoms Musculoskeletal: Reports: Muscle Pain (Aches all over) Skin: Reports: Jaundice (Mild jaundice is noticed) Neurological: Reports: Dizziness, Headache, Weakness Psychiatric: Reports: Anxiety ED EXAM, GI/ABD - Physical Exam Exam: See Below Exam Limited By: No Limitations General Appearance: Alert, No Apparent Distress Eyes: Bilateral: Normal Appearance (Good hydration, mild jaundice) Throat/Mouth: Normal Inspection Head: Atraumatic Respiratory/Chest: No Respiratory Distress, Lungs Clear, Other (Patient does react with discomfort when palpating the anterior chest wall) Cardiovascular: Regular Rate, Rhythm. No: Tachycardia GI/Abdominal Exam: Soft, Tender (Tender across the upper abdomen) Neurological: Alert, Oriented Psychiatric: Anxious Skin Exam: Warm, Dry Course - Vital Signs Last Recorded V/S: Last Vital Signs Temp 97.1 F 12/15/20 12:03 Pulse 92 12/15/20 12:03 Resp 20 12/15/20 12:03 BP 147/88 H 12/15/20 12:03 Pulse Ox 100 12/15/20 12:03 - Orders/Labs/Meds Labs: Laboratory Tests 12/15/20 12/15/20 Range/Units 12:28 12:47 WBC 3.1 L (4.5-11.0) K/uL RBC 3.32 (3.30-5.50) M/uL Hgb 12.1 (12.0-15.0) g/dL Hct 34.2 L (36.0-48.0) % MCV 103 H (80-98) fL MCH 36 H (27-31) pg MCHC 35 (32-36) % Plt Count 149 L (150-400) K/uL Neut % (Auto) 60.2 (36-66) % Lymph % (Auto) 28.0 (24-44) % [place] % (Auto) 11.5 H (2-6) % Eos % (Auto) 0.0 L (2-4) % Baso % (Auto) 0.3 (0-1) % Sodium 127 L (140-148) mmol/L Potassium 3.4 L (3.6-5.2) mmol/L Chloride 90 L (100-108) mmol/L Carbon Dioxide 27 (21-32) mmol/L Anion Gap 13.4 (5.0-14.0) mmol/L BUN 10 D (7-18) mg/dL Creatinine 1.1 H (0.6-1.0) mg/dL Est Cr Clr Drug Dosing 52.30 mL/min Estimated GFR (MDRD) 53 L (>60) Glucose 92 (74-106) mg/dL Calcium 9.2 (8.5-10.1) mg/dL Total Bilirubin 1.9 H D (0.2-1.0) mg/dL AST 60 H (15-37) U/L ALT 39 (12-78) U/L Alkaline Phosphatase 147 H (46-116) U/L Troponin I < 0.017 (0.000-0.056) ng/mL Total Protein 8.4 H (6.4-8.2) g/dL Albumin 3.4 (3.4-5.0) g/dL Globulin 5.0 H (2.3-3.5) g/dL Albumin/Globulin Ratio 0.7 L (1.2-2.2) Amylase 30 D (25-115) U/L Lipase 112 (73-393) U/L Meds: Medications Discontinued Medications Generic Name Dose Route Start Last Admin Trade Name Freq PRN Reason Stop Dose Admin Al Hydroxide/Mg Hydroxide 15 0 ml 12/15/20 12:52 12/15/20 13:11 ml/ Lidocaine HCl 15 ml PO 12/15/20 12:53 30 ml ONETIME ONE Administration - Re-Assessments/Exams Free Text/Narrative Re-Assessment/Exam: 12/15/20 15:36 Read through the patient's entire note from just 3 days ago, 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 I gave her another GI cocktail and gagan a CBC, CMP and troponin. I went in 1/2-hour later to talk about her test results and she was sound asleep. Her labs actually look good for her, compared to her baseline labs. Her bilirubin is elevated at 1.9 and the rest of her labs are stable. Troponin is 0. Patient can be rechecked by her sawmill production worker tomorrow, I did not add any additional therapy at this time. 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 A bland diet may be helpful. Sepsis Event Note (ED) - Evaluation Sepsis Screening Result: No Definite Risk - Focused Exam Vital Signs: Vital Signs Temp Pulse Resp BP Pulse Ox 12/15/20 12:03 97.1 F 92 20 147/88 H 100 12/15/20 11:55 97.1 F 92 20 147/88 H 100
[2020-12-15] MEDS ORDERED: Alum Hydrox/Mag Hydrox/Simeth 15 ML, Lidocaine 2% 15 ML PO ONE ×2 (12:52)
== END 2020-12-15 13:41 | disposition home or self-care (01) ==
LOC: JP.ED 11:15
DX: K29.30 Chronic superficial gastritis without bleeding (principal); R07.89 Other chest pain; I10 Essential (primary) hypertension; Z88.8 Allergy status to other drugs, medicaments and biological substances; Z79.899 Other long term (current) drug therapy; J45.909 Unspecified asthma, uncomplicated; Z87.891 Personal history of nicotine dependence
CPT/HCPCS: 36415; 80053; 82150; 83690; 84484; 85025; 99284; A9270

== ENCOUNTER 2020-12-18 11:04 | Emergency (ER) | payer BC | END 2020-12-18 11:59 | disposition left against medical advice (07) | LOC: JP.ED 11:04 | DX: Z53.21 Procedure and treatment not carried out due to patient leaving prior to being seen by health care provider (principal) ==

== ENCOUNTER 2021-02-04 19:02 | Emergency (ER) | payer BC ==
[2021-02-04] MEDS ORDERED: Pantoprazole 40 MG Vial IVPUSH ONE (19:30)
[2021-02-04] MEDS ORDERED: Ondansetron 4 MG/2 ML SDV IVPUSH PRN (19:30)
--- NOTE | 2021-02-04 20:19 | EDM.PDOC ---
ED HPI GENERAL MEDICAL PROBLEM - General Chief Complaint: General Stated Complaint: MEDICAL VIA [facility] Time Seen by Provider: 02/04/21 19:18 Source of Information: Reports: EMS Notes Reviewed History Limitations: Reports: Uncooperative - History of Present Illness INITIAL COMMENTS - FREE TEXT/NARRATIVE: Patient presents emergency room today via EMS secondary to inability to care for self or refusal to care for self at home. Initially family had brought patient to the emergency room but she refused to get out of the car because of this patient did not come into the emergency room at that time. Family then called EMS who brought patient in by ambulance. Patient did have a reported blood sugar of 49 she did receive refuse oral glucose per EMS notes because of her uncooperative nature she was given Haldol by EMS. I did attempt to interview patient regarding today's emergency room visit and concerns and she has refused to talk with me at all. 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 hepatic encephalopathy history of bariatric surgery Allergies--doxy, e-mycin, procaine EtOH--unknown amounts but has listed alcoholism as previous dx in EMR Unknown COVID infection or immunization status - Related Data Allergies Allergy/AdvReac Type Severity Reaction Status Date / Time doxycycline Allergy Intermediate Rash Verified 12/11/20 16:30 erythromycin base Allergy Intermediate Rash Verified 12/11/20 16:30 procaine [From Novocain] Allergy Intermediate Rash Verified 12/11/20 16:30 Home Meds: Home Meds Multivitamin [Multi-Vitamin Daily] 1 tab PO DAILY 12/02/15 [History] Gabapentin [Neurontin] 600 mg PO TID 07/13/18 [History] Albuterol Sulfate [Proair Respiclick] 1 - 2 puff IH Q4HR PRN 08/10/18 [History] Cyanocobalamin (Vitamin B-12) [Vitamin B-12] 1,000 mcg SL DAILY 08/10/18 [History] Magnesium 400 mg PO BID 11/23/18 [History] Citalopram [Citalopram HBr] 20 mg PO DAILY #30 tablet 04/14/19 [Rx] Lidocaine/Prilocaine [EMLA Crm] 1 applic TP ASDIRECTED PRN 10/30/20 [History] Ondansetron [Zofran ODT] 4 mg PO Q6H PRN 10/30/20 [History] SUMAtriptan succinate [Imitrex] 100 mg PO ASDIRECTED PRN 10/30/20 [History] traZODone 50 mg PO BEDTIME 10/30/20 [History] Dicyclomine [Bentyl] 10 mg PO TID 11/19/20 [History] Furosemide [Lasix] 20 mg PO BID #0 12/04/20 [Rx] Pantoprazole [ProTONIX] 40 mg PO ACBREAKFAST #30 tab.cr 12/04/20 [Rx] Spironolactone [Aldactone] 50 mg PO BID #0 12/04/20 [Rx] Cholecalciferol (Vitamin D3) [Vitamin D] 400 unit PO DAILY 01/26/21 [History] Ergocalciferol (Vitamin D2) [Vitamin D2] 1.25 mg PO ASDIRECTED 01/26/21 [History] Ferrous Fumarate/Vitamin C [Vitron-C] 1 tab PO DAILY 01/26/21 [History] Ferrous Sulfate 325 mg PO DAILY 01/26/21 [History] Scopolamine [Transderm-Scop] 1 patch TD Q3D 01/26/21 [History] Simethicone 125 mg PO Q4H 01/26/21 [History] Thiamine [Vitamin B-1] 100 mg PO DAILY 01/26/21 [History] Vitamin A Palmitate [Vitamin A] 50,000 unit PO DAILY 01/26/21 [History] Zinc 50 mg PO DAILY 01/26/21 [History] polyethylene glycoL 3350 [MiraLAX] 8 gm PO DAILY 01/26/21 [History] Lactulose [Chronulac] 10 gm PO BID #1000 ml 01/29/21 [Rx] metroNIDAZOLE 250 mg PO QID #20 tablet 01/29/21 [Rx] Past Medical History HEENT History: Reports: None Cardiovascular History: Reports: Hypertension Respiratory History: Reports: Asthma Gastrointestinal History: Reports: GERD, Other (See Below) Other Gastrointestinal History: RNY 2002 Genitourinary History: Reports: Other (See Below) Other Genitourinary History: 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 fistula 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 liver failure Dermatologic History: Reports: Other (See Below) Other Dermatologic History: sores on face, neck, hands and back - Infectious Disease History Infectious Disease History: Reports: Chicken Pox, Measles - Past Surgical History HEENT Surgical History: Reports: Oral Surgery Cardiovascular Surgical History: Reports: None Respiratory Surgical History: Reports: None GI Surgical History: Reports: Bariatric Procedure, Cholecystectomy, Colonoscopy, EGD Female Surgical History: Reports: Section, Hysterectomy, Tubal Ligation Endocrine Surgical History: Reports: None Musculoskeletal Surgical History: Reports: Other (See Below) Other Musculoskeletal Surgeries/Procedures:: Ankle plate/pin - hdwe removed Social & Family History - Family History Family Medical History: No Pertinent Family History Cardiac: Reports: OK - Tobacco Use Tobacco Use Status *Q: Unknown Ever Used Tobacco - Caffeine Use Caffeine Use: Reports: Soda Caffeine Use Comment: occasional soda ED ROS GENERAL - Review of Systems Review Of Systems: Unable To Obtain Reason Not Obtained: uncooperative status--refusal to talk ED EXAM, GENERAL - Physical Exam Exam: See Below General Appearance: Alert, WD/WN, No Apparent Distress, Other (patient allows exam w/o resistance, she does sit up for exam of back/posterior lung guthrie, opens eyes/follows my commands although will not talk/answer questions) Eye Exam: Bilateral Eye: EOMI, Other (sclera icterus) Ears: Normal External Exam, Hearing Grossly Normal Nose: Normal Inspection Throat/Mouth: Normal Inspection (moist mucous membranes), No Airway Compromise Head: Atraumatic, Normocephalic Neck: Normal Inspection, Supple, Non-Tender, Full Range of Motion Respiratory/Chest: No Respiratory Distress, Lungs Clear, Normal Breath Sounds, Chest Non-Tender Cardiovascular: Normal Peripheral Pulses, Regular Rate, Rhythm, No Edema, No Murmur Peripheral Pulses: 2+: Radial (L), Radial (R) GI/Abdominal: Normal Bowel Sounds, Soft, Non-Tender (Female) Exam: Deferred Rectal (Female) Exam: Deferred Back Exam: Normal Inspection Extremities: Normal Inspection, Normal Range of Motion, No Pedal Edema, Normal Capillary Refill Neurological: Alert Psychiatric: Flat Affect (uncooperative) Skin Exam: Warm, Dry, Intact, Jaundice Course - Vital Signs Text/Narrative:: 1944--notified by WIRELESS CONSULTANT of bedside glucose results noted to be 62 with improvement from reported glucose reading by EMS which was 49. Requested that WIRELESS CONSULTANT attempted to give patient to take oral juice or drink with sugar. And will start D5 normal saline IV fluids while we are pending labs Laboratory Tests 02/04/21 19:43 POC Glucose 62 L 2235--labs have been reviewed noted for pancytopenia WBC of 3.2 H/H 9.2/27.4 and platelets of 104 her INR is mildly increased at 1.6 diagnosis mildly decreased at 1.7 otherwise metabolic panel is without any acute concerns normal amylase lipase LFTs has a borderline AST at 73 otherwise ALT elevated t.bili, normal ammonia is normal CRP is negative at 0.23 troponin is negative at less than 0.017 and CK is unremarkable at 64 she has a negative alcohol level as well as a negative flu and Covid test urinalysis is pending at this time will request that nursing staff Patient Laboratory Tests 02/04/21 02/04/21 02/04/21 19:50 19:50 19:50 Sodium 134 L Lactic Acid 1.0 Magnesium 1.7 L Total Bilirubin 3.3 H AST 73 H ALT 50 Ammonia Troponin I < 0.017 C-Reactive Protein 0.23 Amylase 25 Lipase 156 Ethyl Alcohol < 3 02/04/21 19:50 Sodium Lactic Acid Magnesium Total Bilirubin AST ALT Ammonia < 10 L Troponin I C-Reactive Protein Amylase Lipase Ethyl Alcohol 2254--notified by WIRELESS CONSULTANT that patient is refusing to provide urinalysis (cathed or voided), will recheck glucose and obtain US RUQ due to elevated t-bili, jaundice/sclera icterus 0100--patient has not provided urinalysis at this time (for UA or UDA). she has been provided banana bag which will include magnesium. negative ammonia thus this behavior is not alcohlic hepatic encephalopathy. US RUQ due to noted increase t-bili 3.3 and mild elevation of INR-1.6 although likely related to her alcoholic liver dz. Once she has been medically cleared plan is to d/c home or will attempt placement at [facility] for crisis stabilization . Call placed to this number and at this time they only accept referrals M-F [phone]. will provide this info to WIRELESS CONSULTANT 0255--no acute findings other than pancytopenia, alcoholic liver dz, chronic alcholism, alcoholic liver cirrhosis, uncooperative behavior. at this time will continued to monitor. will have day shift ER physician consult case management for further assistance as well as have WIRELESS CONSULTANT try to contact [facility] for placement consideration 0530--banana bag infusion has completed at this time. patient still has not provided urine for UA/UDS. she is currently sleeping. WIRELESS CONSULTANT is going to contact her mother at 0630 to discuss discharge. if she declines to merchandise pickup/receiving associate patient then will need case management assistance for placement needs 0630--call was placed to mother that patient is ready for d/c, mother agrees to merchandise pickup/receiving associate at this time. will recommend that she discuss referral to [facility] with PCM Last Recorded V/S: Last Vital Signs Temp 97.7 F 02/04/21 19:03 Pulse 78 02/05/21 04:03 Resp 14 02/05/21 01:38 BP 109/60 02/05/21 04:03 Pulse Ox 99 02/05/21 01:38 - Orders/Labs/Meds Orders: Active Orders 24 hr Category Date Time Status Oxygen Therapy [RC] ASDIRECTED Care 02/04/21 19:30 Active Pulse Oximetry [RC] CONTINUOUS Care 02/04/21 19:30 Active Up With Assistance [RC] ASDIRECTED Care 02/04/21 19:30 Active CULTURE BLOOD [BC] Urgent Lab 02/04/21 19:44 Received CULTURE BLOOD [BC] Urgent Lab 02/04/21 19:50 Received DRUG SCREEN, URINE [URCHEM] Urgent Lab 02/04/21 19:30 Ordered UA W/MICROSCOPIC [URIN] Urgent Lab 02/04/21 19:30 Ordered MVI, Adult with Vitamin K [Infuvite Adult] 10 ml Med 02/04/21 23:15 Active Thiamine [Vitamin B-1] 100 mg Folic Acid 1 mg Magnesium Sulfate [Magnesium Sulfate 50%] 3 gm Sodium Chloride 0.9% [Normal Saline] 1,000 ml IV ASDIRECTED Ondansetron [Zofran] Med 02/04/21 19:30 Active 4 mg IVPUSH ONETIME PRN Blood Culture x2 Reflex Set [OM.PC] Urgent Oth 02/04/21 19:30 Ordered ED Antiemetic Medication Reflex [OM.PC] Click to Edit Oth 02/04/21 19:30 Ordered ED GI Medications Reflex [OM.PC] Click to Edit Oth 02/04/21 19:30 Ordered Isolation [COMM] Stat Oth 02/04/21 19:34 Ordered Medication Orders Multivitamins/Minerals 10 ml/Thiamine HCl 100 mg/ Folic Acid 1 mg/ Magnesium Sulfate 3 gm/ Sodium Chloride 1,017.2 mls @ 250 mls/hr IV ASDIRECTED BILLY Last Admin: 02/05/21 01:35 Dose: 250 mls/hr Documented by: SHARLENE Ondansetron HCl (Ondansetron 4 Mg/2 Ml Sdv) 4 mg IVPUSH ONETIME PRN PRN Reason: Nausea/Vomiting Last Admin: 02/04/21 19:48 Dose: 4 mg Documented by: AUDREY Labs: Laboratory Tests 02/04/21 02/04/21 02/04/21 Range/Units 19:43 19:50 19:50 WBC 3.2 L (4.5-11.0) K/uL RBC 2.69 L (3.30-5.50) M/uL Hgb 9.2 L (12.0-15.0) g/dL Hct 27.8 L (36.0-48.0) % MCV 103 H (80-98) fL MCH 34 H (27-31) pg MCHC 33 (32-36) % Plt Count 104 L (150-400) K/uL Neut % (Auto) 63.0 (36-66) % Lymph % (Auto) 25.0 (24-44) % [place] % (Auto) 9.9 H (2-6) % Eos % (Auto) 1.2 L (2-4) % Baso % (Auto) 0.9 (0-1) % PT 15.6 H (9.2-10.6) sec INR 1.6 APTT 30.4 (21.4-31.8) sec Sodium (140-148) mmol/L Potassium (3.6-5.2) mmol/L Chloride (100-108) mmol/L Carbon Dioxide (21-32) mmol/L Anion Gap (5.0-14.0) mmol/L BUN (7-18) mg/dL Creatinine (0.6-1.0) mg/dL Est Cr Clr Drug Dosing Estimated GFR (MDRD) (>60) Glucose (74-106) mg/dL POC Glucose 62 L (74-106) mg/dL Lactic Acid (0.4-2.0) mmol/L Calcium (8.5-10.1) mg/dL Magnesium (1.8-2.4) mg/dL Total Bilirubin (0.2-1.0) mg/dL AST (15-37) U/L ALT (12-78) U/L Alkaline Phosphatase (46-116) U/L Ammonia (11-32) umol/L Creatine Kinase (26-192) U/L Troponin I (0.000-0.056) ng/mL C-Reactive Protein (0.0-0.3) mg/dL Total Protein (6.4-8.2) g/dL Albumin (3.4-5.0) g/dL Globulin (2.3-3.5) g/dL Albumin/Globulin Ratio (1.2-2.2) Amylase (25-115) U/L Lipase (73-393) U/L Ethyl Alcohol mg/dL Influenza Type A RNA (NEGATIVE) Influenza Type B RNA (NEGATIVE) SARS-CoV-2 RNA (EDGAR) (NEGATIVE) 02/04/21 02/04/21 02/04/21 Range/Units 19:50 19:50 19:50 WBC (4.5-11.0) K/uL RBC (3.30-5.50) M/uL Hgb (12.0-15.0) g/dL Hct (36.0-48.0) % MCV (80-98) fL MCH (27-31) pg MCHC (32-36) % Plt Count (150-400) K/uL Neut % (Auto) (36-66) % Lymph % (Auto) (24-44) % [place] % (Auto) (2-6) % Eos % (Auto) (2-4) % Baso % (Auto) (0-1) % PT (9.2-10.6) sec INR APTT (21.4-31.8) sec Sodium 134 L (140-148) mmol/L Potassium 3.6 (3.6-5.2) mmol/L Chloride 102 (100-108) mmol/L Carbon Dioxide 24 (21-32) mmol/L Anion Gap 11.6 (5.0-14.0) mmol/L BUN 5 L (7-18) mg/dL Creatinine 0.8 (0.6-1.0) mg/dL Est Cr Clr Drug Dosing TNP Estimated GFR (MDRD) > 60 (>60) Glucose 63 L (74-106) mg/dL POC Glucose (74-106) mg/dL Lactic Acid 1.0 (0.4-2.0) mmol/L Calcium 8.9 (8.5-10.1) mg/dL Magnesium 1.7 L (1.8-2.4) mg/dL Total Bilirubin 3.3 H (0.2-1.0) mg/dL AST 73 H (15-37) U/L ALT 50 (12-78) U/L Alkaline Phosphatase 139 H (46-116) U/L Ammonia (11-32) umol/L Creatine Kinase 64 (26-192) U/L Troponin I < 0.017 (0.000-0.056) ng/mL C-Reactive Protein 0.23 (0.0-0.3) mg/dL Total Protein 6.6 (6.4-8.2) g/dL Albumin 2.2 L (3.4-5.0) g/dL Globulin 4.4 H (2.3-3.5) g/dL Albumin/Globulin Ratio 0.5 L (1.2-2.2) Amylase 25 (25-115) U/L Lipase 156 (73-393) U/L Ethyl Alcohol < 3 mg/dL Influenza Type A RNA (NEGATIVE) Influenza Type B RNA (NEGATIVE) SARS-CoV-2 RNA (EDGAR) (NEGATIVE) 02/04/21 02/04/21 02/04/21 Range/Units 19:50 19:58 23:50 WBC (4.5-11.0) K/uL RBC (3.30-5.50) M/uL Hgb (12.0-15.0) g/dL Hct (36.0-48.0) % MCV (80-98) fL MCH (27-31) pg MCHC (32-36) % Plt Count (150-400) K/uL Neut % (Auto) (36-66) % Lymph % (Auto) (24-44) % [place] % (Auto) (2-6) % Eos % (Auto) (2-4) % Baso % (Auto) (0-1) % PT (9.2-10.6) sec INR APTT (21.4-31.8) sec Sodium (140-148) mmol/L Potassium (3.6-5.2) mmol/L Chloride (100-108) mmol/L Carbon Dioxide (21-32) mmol/L Anion Gap (5.0-14.0) mmol/L BUN (7-18) mg/dL Creatinine (0.6-1.0) mg/dL Est Cr Clr Drug Dosing Estimated GFR (MDRD) (>60) Glucose (74-106) mg/dL POC Glucose 119 H (74-106) mg/dL Lactic Acid (0.4-2.0) mmol/L Calcium (8.5-10.1) mg/dL Magnesium (1.8-2.4) mg/dL Total Bilirubin (0.2-1.0) mg/dL AST (15-37) U/L ALT (12-78) U/L Alkaline Phosphatase (46-116) U/L Ammonia < 10 L (11-32) umol/L Creatine Kinase (26-192) U/L Troponin I (0.000-0.056) ng/mL C-Reactive Protein (0.0-0.3) mg/dL Total Protein (6.4-8.2) g/dL Albumin (3.4-5.0) g/dL Globulin (2.3-3.5) g/dL Albumin/Globulin Ratio (1.2-2.2) Amylase (25-115) U/L Lipase (73-393) U/L Ethyl Alcohol mg/dL Influenza Type A RNA Negative (NEGATIVE) Influenza Type B RNA Negative (NEGATIVE) SARS-CoV-2 RNA (EDGAR) Negative (NEGATIVE) Meds: Medications Generic Name Dose Route Start Last Admin Trade Name Oliq PRN Reason Stop Dose Admin Multivitamins/Minerals 10 ml/ 1,017.2 mls @ 250 mls/hr 02/04/21 23:15 02/05/21 01:35 Thiamine HCl 100 mg/ Folic IV 250 mls/hr Acid 1 mg/ Magnesium Sulfate 3 ASDIRECTED BILLY Administration gm/ Sodium Chloride Ondansetron HCl 4 mg 02/04/21 19:30 02/04/21 19:48 Ondansetron 4 Mg/2 Ml Sdv IVPUSH 4 mg ONETIME PRN Administration Nausea/Vomiting Discontinued Medications Generic Name Dose Route Start Last Admin Trade Name Oliq PRN Reason Stop Dose Admin Folic Acid Confirm 02/05/21 00:40 02/05/21 01:37 Folic Acid 50 Mg/10 Ml Mdv Administered 02/05/21 00:41 Not Given Dose 50 mg .ROUTE .STK-MED ONE Dextrose/Sodium Chloride 1,000 mls @ 125 mls/hr 02/04/21 20:30 02/04/21 20:48 Dextrose 5%-Normal Saline IV 125 mls/hr ASDIRECTED BILLY Administration Sodium Chloride Confirm 02/05/21 00:40 12 01:37 Normal Saline Administered 02/05/21 00:41 Not Given Dose 1,000 mls @ as directed .ROUTE .STK-MED ONE Magnesium Sulfate Confirm 02/05/21 00:40 02/05/21 01:37 Magnesium Sulfate (4.06 Meq/Ml) 1 Gm/2 Ml Sdv Administered 02/05/21 00:41 Not Given Dose 3 gm .ROUTE .STK-MED ONE Pantoprazole Sodium 40 mg 02/04/21 19:30 02/04/21 19:48 Pantoprazole 40 Mg Vial IVPUSH 02/04/21 19:31 40 mg ONETIME ONE Administration Thiamine HCl Confirm 02/05/21 00:40 02/05/21 01:37 Thiamine 200 Mg/2 Ml Mdv Administered 02/05/21 00:41 Not Given Dose 200 mg .ROUTE .STK-MED ONE - Radiology Interpretation Free Text/Narrative:: 0215--US tech report, mild dilated bile duct, hepatic cirrhosis, no evidence of stone/duct blockage, trace ascites RUQ. undetermined area near pancreas head (he reports that prior CT abd/pelvis notes pancreatic mass with recommendation for MRI to further evaluate; patient apparently never had this scheduled) 0255--Ultrasound final radiology report of the right upper quadrant is noted for gallbladder status post cholecystectomy liver difficult sonographic windows due to increased echogenicity and tracetrace pericholecystic fluid, pancrease obscured by bowel gas. Impression--limited examination hepatic steatosis w/suboptimal assessment of hepatic parenchyma Departure - Departure Time of Disposition: 06:28 Disposition: Home, Self-Care 01 Clinical Impression: Chronic alcohol abuse, Hyperbilirubinemia, Hypomagnesemia, Uncooperative behavior, Pancytopenia Cirrhosis, alcoholic Qualifiers: Ascites presence: without ascites Qualified Code(s): K70.30 - Alcoholic cirrhosis of liver without ascites - Discharge Information Instructions: Alcohol Use Disorder, Alcohol Abuse and Nutrition, Alcoholic Liver Disease, Vita-vi-Uavt Referrals: PCP,Unknown [Primary Care Provider] - Forms: ED Department Discharge Additional Instructions: It is recommended that you follow-up with your primary care provider/family physician in regards to chronic medical care management and ongoing medication needs. There is a new residential care facility that you may be interested in exploring options in [place] as an acute care situation. You will need to request a referral from her primary care provider should you be interested in exploring this option [facility] for crisis stabilization . They only accept referrals [phone] It was noted in review of chart but a CT scan was done previously had concern for a pancreatic mass or area of undetermined significance. It was recommended that you obtain an MRI of your pancreas please discuss with your primary care provider further evaluation as was recommended by radiology Sepsis Event Note (ED) - Evaluation Sepsis Screening Result: No Definite Risk - Focused Exam Vital Signs: Vital Signs Temp Pulse Resp BP Pulse Ox 02/05/21 04:03 78 109/60 02/05/21 01:38 74 14 102/64 99 02/04/21 21:38 91 109/68 99 02/04/21 19:03 97.7 F 86 16 102/60 100 - My Orders Last 24 Hours: My Active Orders 02/04/21 19:30 Oxygen Therapy [RC] ASDIRECTED Pulse Oximetry [RC] CONTINUOUS Up With Assistance [RC] ASDIRECTED DRUG SCREEN, URINE [URCHEM] Urgent UA W/MICROSCOPIC [URIN] Urgent Ondansetron [Zofran] 4 mg IVPUSH ONETIME PRN Blood Culture x2 Reflex Set [OM.PC] Urgent ED Antiemetic Medication Reflex [OM.PC] Click to Edit ED GI Medications Reflex [OM.PC] Click to Edit 02/04/21 19:34 Isolation [COMM] Stat 02/04/21 19:44 CULTURE BLOOD [BC] Urgent 02/04/21 19:50 CULTURE BLOOD [BC] Urgent 02/04/21 23:15 MVI, Adult with Vitamin K [Infuvite Adult] 10 ml Thiamine [Vitamin B-1] 100 mg Folic Acid 1 mg Magnesium Sulfate [Magnesium Sulfate 50%] 3 gm Sodium Chloride 0.9% [Normal Saline] 1,000 ml IV ASDIRECTED - Assessment/Plan Last 24 Hours: My Active Orders 02/04/21 19:30 Oxygen Therapy [RC] ASDIRECTED Pulse Oximetry [RC] CONTINUOUS Up With Assistance [RC] ASDIRECTED DRUG SCREEN, URINE [URCHEM] Urgent UA W/MICROSCOPIC [URIN] Urgent Ondansetron [Zofran] 4 mg IVPUSH ONETIME PRN Blood Culture x2 Reflex Set [OM.PC] Urgent ED Antiemetic Medication Reflex [OM.PC] Click to Edit ED GI Medications Reflex [OM.PC] Click to Edit 02/04/21 19:34 Isolation [COMM] Stat 02/04/21 19:44 CULTURE BLOOD [BC] Urgent 02/04/21 19:50 CULTURE BLOOD [BC] Urgent 02/04/21 23:15 MVI, Adult with Vitamin K [Infuvite Adult] 10 ml Thiamine [Vitamin B-1] 100 mg Folic Acid 1 mg Magnesium Sulfate [Magnesium Sulfate 50%] 3 gm Sodium Chloride 0.9% [Normal Saline] 1,000 ml IV ASDIRECTED
[2021-02-04] MEDS ORDERED: Dextrose 5%-0.9% NaCl 1,000 ML IV SCH (20:30)
[2021-02-04 20:34] LABS: CORONAVIRUS COVID-19 NAA NEGATIVE (NEGATIVE)
[2021-02-04] MEDS ORDERED: MVI, Adult with Vitamin K 10 ML, Thiamine 100 MG, Folic Acid 1 MG, Magnesium Sulfate 3 ... IV SCH ×5 (23:15)
[2021-02-05] MEDS ORDERED: Magnesium Sulfate (4.06 MEQ/ML) 1 GM/2 ML SDV ONE (00:40)
[2021-02-05] MEDS ORDERED: Thiamine 200 MG/2 ML MDV ONE (00:40)
[2021-02-05] MEDS ORDERED: Folic Acid 50 MG/10 ML MDV ONE (00:40)
[2021-02-05] MEDS ORDERED: Sodium Chloride 0.9% 1,000 ML ONE (00:40)
--- NOTE | 2021-02-05 02:31 | CRLUS ---
For Patients: As a result of the Century Cures Act, medical imaging exams and procedure reports are released immediately into your electronic medical record. You may view this report before your referring provider. If you have questions, please contact your health care provider. INDICATION: Elevated bilirubin and INR. Jaundice. TECHNIQUE: Ultrasound abdomen limited. Sonographic images of the right upper quadrant were obtained using mckeon-scale and color Doppler images. COMPARISON: None FINDINGS: Liver: Difficult sonographic windows with some increased echogenicity within the liver. No gross lesion. Trace pericholecystic fluid noted. Gallbladder: Status post cholecystectomy. Common bile duct: 8 mm. Pancreas: Obscured by bowel gas. Right kidney: Normal in size. Normal echotexture and cortex. No masses, stones, or hydronephrosis. IMPRESSION: 1. Status post cholecystectomy with common duct within normal limits for a post cholecystectomy patient. 2. Limited examination with poor sonographic windows. Hepatic steatosis noted although suboptimal for assessing the hepatic parenchyma. Dictated by Chano Walden MD @ 02/05/2021 2:29:17 AM (Electronically Signed)
[2021-02-05 04:04] VITALS: BP 109/60; PULSE 78
== END 2021-02-05 07:38 | disposition home or self-care (01) ==
LOC: JP.ED 19:02
DX: K70.30 Alcoholic cirrhosis of liver without ascites (principal); F10.20 Alcohol dependence, uncomplicated; E83.42 Hypomagnesemia; D61.818 Other pancytopenia; E80.6 Other disorders of bilirubin metabolism; I10 Essential (primary) hypertension; J45.909 Unspecified asthma, uncomplicated; K21.9 Gastro-esophageal reflux disease without esophagitis; Y90.0 Blood alcohol level of less than 20 mg/100 ml; Z88.1 Allergy status to other antibiotic agents; Z88.4 Allergy status to anesthetic agent; Z79.899 Other long term (current) drug therapy; Z20.822 Contact with and (suspected) exposure to COVID-19
CPT/HCPCS: 0240U; 36415; 76705; 80053; 80307; 82140; 82150; 82550; 82947; 83605; 83690; 83735; 84484; 85025; 85610; 85730; 86140; 87040; 96365; 96366; 96375; 99284; C9113; J2405; J3411; J3475; J7030; J3490

== ENCOUNTER 2021-02-14 17:46 | Emergency (ER) | payer BC ==
[2021-02-14 18:16] VITALS: BP 155/90; PULSE 85
[2021-02-14] MEDS ORDERED: Ondansetron 4 MG/2 ML SDV IVPUSH ONE (19:11)
[2021-02-14] MEDS ORDERED: Sodium Chloride 0.9% 10 ML Syringe FLUSH PRN (19:11)
[2021-02-14] MEDS ORDERED: HYDROmorphone 0.5 MG/0.5 ML Syringe IVPUSH ONE (19:12)
--- NOTE | 2021-02-14 19:38 | EDM.PDOC ---
ED HPI GENERAL MEDICAL PROBLEM - General Chief Complaint: Abdominal Pain Stated Complaint: STOMACH PAIN,LOW SODIUM Time Seen by Provider: 02/14/21 18:50 Source of Information: Reports: Patient, Old Records History Limitations: Reports: Other (patient is a very poor historian) - History of Present Illness INITIAL COMMENTS - FREE TEXT/NARRATIVE: 45 yo female with a pHx of alcoholic cirrhosis/ascites, encephalopathy, and pancreatic pseudocysts presents complaining of abdominal pain. She was seen in the clinic today for a hospital follow up. She was discharged from [facility] this past Wednesday after an admission primarily for encephalopathy. Today in the clinic she was given oxycodone to use for pain, Ewelina states she has yet to start it. In the clinic she said the pain was her baseline pain, here she makes it sound like it is much worse. She had lab work in the clinic today that showed a normal WBC and plt count. Her Hgb was 9.8(was 10.4 a month ago). Her T. bili was 6.6. Na 119. Albumin 2.3. She was called by the clinic after she had arrived at home to tell her to come to the ER for her low sodium, she has chronic hyponatremia and her sodium was 121 a month ago. A review also of Uday Garces's records suggests her problem was actually delirium and in fact her ammonia level was only 24. She seemed to pull out of the delerium with only supportive care. She has been evaluated as a candidate for liver transplant and was found due to her past and present risk of drug and alcohol abuse to not be a candidate. Her furosemide dose from [place] was 60 mg in am and 40 mg in pm. This is higher than what we had on her record here previously. Onset: Gradual Duration: Chronic, Getting Worse Location: Reports: Abdomen Quality: Reports: Ache Severity: Moderate Improves with: Reports: Medication Worsens with: Reports: Other (? time) Context: Reports: Other (See HPI) Associated Symptoms: Reports: Nausea/Vomiting. Denies: Fever/Chills Treatments AUDIT SPECIALIST: Reports: Other (see below) (none) Abdomen Pain Score (Numeric/FACES): 10 - Related Data Allergies Allergy/AdvReac Type Severity Reaction Status Date / Time doxycycline Allergy Intermediate Rash Verified 02/14/21 18:35 erythromycin base Allergy Intermediate Rash Verified 02/14/21 18:35 procaine [From Novocain] Allergy Intermediate Rash Verified 02/14/21 18:35 Home Meds: Home Meds Multivitamin [Multi-Vitamin Daily] 1 tab PO DAILY 12/02/15 [History] Gabapentin [Neurontin] 600 mg PO TID 07/13/18 [History] Albuterol Sulfate [Proair Respiclick] 1 - 2 puff IH Q4HR PRN 08/10/18 [History] Cyanocobalamin (Vitamin B-12) [Vitamin B-12] 1,000 mcg SL DAILY 08/10/18 [History] Magnesium 400 mg PO BID 11/23/18 [History] Citalopram [Citalopram HBr] 20 mg PO DAILY #30 tablet 04/14/19 [Rx] Lidocaine/Prilocaine [EMLA Crm] 1 applic TP ASDIRECTED PRN 10/30/20 [History] Ondansetron [Zofran ODT] 4 mg PO Q6H PRN 10/30/20 [History] SUMAtriptan succinate [Imitrex] 100 mg PO ASDIRECTED PRN 10/30/20 [History] traZODone 50 mg PO BEDTIME 10/30/20 [History] Dicyclomine [Bentyl] 10 mg PO TID 11/19/20 [History] Furosemide [Lasix] 20 mg PO BID #0 12/04/20 [Rx] Pantoprazole [ProTONIX] 40 mg PO ACBREAKFAST #30 tab.cr 12/04/20 [Rx] Spironolactone [Aldactone] 50 mg PO BID #0 12/04/20 [Rx] Cholecalciferol (Vitamin D3) [Vitamin D] 400 unit PO DAILY 01/26/21 [History] Ergocalciferol (Vitamin D2) [Vitamin D2] 1.25 mg PO ASDIRECTED 01/26/21 [History] Ferrous Fumarate/Vitamin C [Vitron-C] 1 tab PO DAILY 01/26/21 [History] Ferrous Sulfate 325 mg PO DAILY 01/26/21 [History] Scopolamine [Transderm-Scop] 1 patch TD Q3D 01/26/21 [History] Simethicone 125 mg PO Q4H 01/26/21 [History] Thiamine [Vitamin B-1] 100 mg PO DAILY 01/26/21 [History] Vitamin A Palmitate [Vitamin A] 50,000 unit PO DAILY 01/26/21 [History] Zinc 50 mg PO DAILY 01/26/21 [History] polyethylene glycoL 3350 [MiraLAX] 8 gm PO DAILY 01/26/21 [History] Lactulose [Chronulac] 10 gm PO BID #1000 ml 01/29/21 [Rx] metroNIDAZOLE 250 mg PO QID #20 tablet 01/29/21 [Rx] Sucralfate 1 dose PO ASDIRECTED 02/14/21 [History] oxyCODONE 1 tab PO ASDIRECTED 02/14/21 [History] Past Medical History HEENT History: Reports: None Cardiovascular History: Reports: Hypertension Respiratory History: Reports: Asthma Gastrointestinal History: Reports: GERD, Other (See Below) Other Gastrointestinal History: RNY 2002 Genitourinary History: Reports: Other (See Below) Other Genitourinary History: 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 fistula [employer] History: Reports: Dysfunctional Uterine Bleeding, Musculoskeletal History: Reports: Fracture Neurological History: Reports: Migraines Psychiatric History: Reports: Addiction, Anxiety, Depression Endocrine/Metabolic History: Reports: Hypothyroidism, Vitamin D Deficiency Hematologic History: Reports: Anemia, B12 Deficiency, Blood Transfusion(s), Iron Deficiency, Other (See Below) Other Hematologic History: vitamin D def. liver failure Dermatologic History: Reports: Other (See Below) Other Dermatologic History: sores on face, neck, hands and back - Infectious Disease History Infectious Disease History: Reports: Chicken Pox, Measles - Past Surgical History HEENT Surgical History: Reports: Oral Surgery GI Surgical History: Reports: Bariatric Procedure, Cholecystectomy, Colonoscopy, EGD Female Surgical History: Reports: Section, Hysterectomy, Tubal Ligation Musculoskeletal Surgical History: Reports: Other (See Below) Other Musculoskeletal Surgeries/Procedures:: Ankle plate/pin - hdwe removed Social & Family History - Family History Family Medical History: No Pertinent Family History Cardiac: Reports: [place] - Tobacco Use Tobacco Use Status *Q: Light Tobacco User Years of Tobacco use: 6 Packs/Tins Daily: 0.5 - Caffeine Use Caffeine Use: Reports: None Caffeine Use Comment: occasional soda - Recreational Drug Use Recreational Drug Use: No ED ROS GENERAL - Review of Systems Review Of Systems: See Below Constitutional: Reports: No Symptoms. Denies: Fever, Chills HEENT: Reports: No Symptoms Respiratory: Reports: No Symptoms Cardiovascular: Reports: No Symptoms Endocrine: Reports: No Symptoms GI/Abdominal: Reports: Abdominal Pain, Nausea, Vomiting. Denies: Black Stool, Bloody Stool, Constipation, Diarrhea, Distension, Hematemesis, Hematochezia, Melena : Reports: No Symptoms Musculoskeletal: Reports: No Symptoms Skin: Reports: No Symptoms Neurological: Reports: No Symptoms Psychiatric: Reports: No Symptoms ED EXAM, GI/ABD - Physical Exam Exam: See Below Exam Limited By: No Limitations General Appearance: Alert, WD/WN, No Apparent Distress Eyes: Bilateral: Normal Appearance (scleral icterus) Ears: Normal External Exam, Normal Canal, Hearing Grossly Normal Nose: Normal Inspection, No Blood Throat/Mouth: Normal Inspection, Normal Lips, Normal Oropharynx, Normal Voice, No Airway Compromise Head: Atraumatic, Normocephalic Neck: Normal Inspection Respiratory/Chest: No Respiratory Distress, Lungs Clear, Normal Breath Sounds Course - Vital Signs Last Recorded V/S: Last Vital Signs Temp 36.6 C 02/14/21 18:33 Pulse 85 02/14/21 18:33 Resp 16 02/14/21 18:33 BP 155/90 H 02/14/21 18:33 Pulse Ox 100 02/14/21 18:33 - Orders/Labs/Meds Orders: Active Orders 24 hr Category Date Time Status CRP [C-REACTIVE PROTEIN] [CHEM] Stat Lab 02/14/21 19:46 Ordered LIPASE [CHEM] Stat Lab 02/14/21 19:38 Ordered Meds: Medications Discontinued Medications Generic Name Dose Route Start Last Admin Trade Name Mely PRN Reason Stop Dose Admin Hydromorphone HCl 0.25 mg 02/14/21 19:12 Hydromorphone 0.5 Mg/0.5 Ml Syringe IVPUSH 02/14/21 19:13 ONETIME ONE Ondansetron HCl 4 mg 02/14/21 19:11 Ondansetron 4 Mg/2 Ml Sdv IVPUSH 02/14/21 19:12 ONETIME ONE Ondansetron HCl 4 mg 02/14/21 19:44 Ondansetron 4 Mg Tab.Dis PO 02/14/21 19:45 ONETIME ONE Oxycodone HCl 5 mg 02/14/21 19:44 Oxycodone 5 Mg Tab PO 02/14/21 19:45 ONETIME ONE Sodium Chloride 10 ml 02/14/21 19:11 Sodium Chloride 0.9% 10 Ml Syringe FLUSH ASDIRECTED PRN Keep Vein Open Departure - Departure Time of Disposition: 20:35 Disposition: Home, Self-Care 01 Condition: Fair Clinical Impression: Total bilirubin, elevated, Hyponatremia, Nausea Abdominal pain Qualifiers: Abdominal location: generalized Qualified Code(s): R10.84 - Generalized abdominal pain - Discharge Information *PRESCRIPTION DRUG MONITORING PROGRAM REVIEWED*: Not Applicable *COPY OF PRESCRIPTION DRUG MONITORING REPORT IN PATIENT FARHAT: Not Applicable Instructions: Jaundice, Adult, [id number], Nausea, Adult, [id number] Referrals: Rick James MD [Primary Care Provider] - Forms: ED Department Discharge Additional Instructions: Hold your evening dose(40 mg) of furosemide. Continue all your other medications as currently. Check your temperature a couple times a day and return if your temperature gets over 100F. Keep your appt for clinic recheck on Wednesday. Sepsis Event Note (ED) - Evaluation Sepsis Screening Result: No Definite Risk - Focused Exam Vital Signs: Vital Signs Temp Pulse Resp BP Pulse Ox 02/14/21 18:33 36.6 C 85 16 155/90 H 100 02/14/21 18:15 36.6 C 85 16 155/90 H 100 - My Orders Last 24 Hours: My Active Orders 02/14/21 19:38 LIPASE [CHEM] Stat 02/14/21 19:46 CRP [C-REACTIVE PROTEIN] [CHEM] Stat - Assessment/Plan Last 24 Hours: My Active Orders 02/14/21 19:38 LIPASE [CHEM] Stat 02/14/21 19:46 CRP [C-REACTIVE PROTEIN] [CHEM] Stat
[2021-02-14] MEDS ORDERED: Ondansetron 4 MG Tab.DIS PO ONE (19:44)
[2021-02-14] MEDS ORDERED: oxyCODONE 5 MG Tab PO ONE (19:44)
== END 2021-02-14 20:50 | disposition home or self-care (01) ==
LOC: JP.ED 17:46
DX: R10.84 Generalized abdominal pain (principal); R11.2 Nausea with vomiting, unspecified; E87.1 Hypo-osmolality and hyponatremia; I10 Essential (primary) hypertension; K21.9 Gastro-esophageal reflux disease without esophagitis; E03.9 Hypothyroidism, unspecified; E80.7 Disorder of bilirubin metabolism, unspecified; Z72.0 Tobacco use; Z88.1 Allergy status to other antibiotic agents; Z88.8 Allergy status to other drugs, medicaments and biological substances
CPT/HCPCS: 36415; 80307; 83690; 86140; 99284; A9270

== ENCOUNTER 2021-02-25 23:09 | Inpatient (IN) | payer BC ==
--- NOTE | 2021-02-26 00:33 | EDM.PDOC ---
ED HPI GENERAL MEDICAL PROBLEM - General Chief Complaint: Abdominal Pain Stated Complaint: LOWER STOMACH PAIN Time Seen by Provider: 02/26/21 00:00 Source of Information: Reports: Patient History Limitations: Reports: No Limitations - History of Present Illness INITIAL COMMENTS - FREE TEXT/NARRATIVE: Ewelina is in at the convincing of her daughter because of some increased periphe ral edema, lower abdominal discomfort, and dark stools over the past 12 to 24 hours. Her medications have been monitored as an outpatient after a couple of recent admissions and she had been "doing real well". She is concerned that her increased weight and edema along with her dark stools may be a setback, she is thinking clearly and does not feel like her ammonia level is elevated. No nausea or vomiting. Onset: Gradual Duration: Day(s): (2 to 3 days) Associated Symptoms: Reports: Loss of Appetite, Malaise, Weakness. Denies: Fever/Chills, Headaches Lower Abdomen Pain Score (Numeric/FACES): 5 - Related Data Allergies Allergy/AdvReac Type Severity Reaction Status Date / Time doxycycline Allergy Intermediate Rash Verified 02/25/21 23:50 erythromycin base Allergy Intermediate Rash Verified 02/25/21 23:50 procaine [From Novocain] Allergy Intermediate Rash Verified 02/25/21 23:50 Home Meds: Home Meds Multivitamin [Multi-Vitamin Daily] 1 tab PO DAILY 12/02/15 [History] Gabapentin [Neurontin] 600 mg PO TID 07/13/18 [History] Albuterol Sulfate [Proair Respiclick] 1 - 2 puff IH Q4HR PRN 08/10/18 [History] Cyanocobalamin (Vitamin B-12) [Vitamin B-12] 1,000 mcg SL DAILY 08/10/18 [History] Magnesium 400 mg PO BID 11/23/18 [History] Citalopram [Citalopram HBr] 20 mg PO DAILY #30 tablet 04/14/19 [Rx] Lidocaine/Prilocaine [EMLA Crm] 1 applic TP ASDIRECTED PRN 10/30/20 [History] Ondansetron [Zofran ODT] 4 mg PO Q6H PRN 10/30/20 [History] SUMAtriptan succinate [Imitrex] 100 mg PO ASDIRECTED PRN 10/30/20 [History] traZODone 50 mg PO BEDTIME 10/30/20 [History] Dicyclomine [Bentyl] 10 mg PO TID 11/19/20 [History] Furosemide [Lasix] 20 mg PO BID #0 12/04/20 [Rx] Pantoprazole [ProTONIX] 40 mg PO ACBREAKFAST #30 tab.cr 12/04/20 [Rx] Spironolactone [Aldactone] 50 mg PO BID #0 12/04/20 [Rx] Cholecalciferol (Vitamin D3) [Vitamin D] 400 unit PO DAILY 01/26/21 [History] Ergocalciferol (Vitamin D2) [Vitamin D2] 1.25 mg PO ASDIRECTED 01/26/21 [History] Ferrous Fumarate/Vitamin C [Vitron-C] 1 tab PO DAILY 01/26/21 [History] Ferrous Sulfate 325 mg PO DAILY 01/26/21 [History] Scopolamine [Transderm-Scop] 1 patch TD Q3D 01/26/21 [History] Simethicone 125 mg PO Q4H 01/26/21 [History] Thiamine [Vitamin B-1] 100 mg PO DAILY 01/26/21 [History] Vitamin A Palmitate [Vitamin A] 50,000 unit PO DAILY 01/26/21 [History] Zinc 50 mg PO DAILY 01/26/21 [History] polyethylene glycoL 3350 [MiraLAX] 8 gm PO DAILY 01/26/21 [History] Lactulose [Chronulac] 10 gm PO BID #1000 ml 01/29/21 [Rx] metroNIDAZOLE 250 mg PO QID #20 tablet 01/29/21 [Rx] Sucralfate 1 dose PO ASDIRECTED 02/14/21 [History] fentaNYL [Duragesic] 1 patch TOP ASDIRECTED 02/26/21 [History] Past Medical History HEENT History: Reports: None Cardiovascular History: Reports: Hypertension Respiratory History: Reports: Asthma Gastrointestinal History: Reports: GERD, Other (See Below) 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 liver failure Dermatologic History: Reports: Other (See Below) Other Dermatologic History: sores on face, neck, hands and back - Infectious Disease History Infectious Disease History: Reports: Chicken Pox, Measles - Past Surgical History HEENT Surgical History: Reports: Oral Surgery Cardiovascular Surgical History: Reports: None Respiratory Surgical History: Reports: None GI Surgical History: Reports: Bariatric Procedure, Cholecystectomy, Colonoscopy, EGD Female Surgical History: Reports: Section, Hysterectomy, Tubal Ligation Endocrine Surgical History: Reports: None Musculoskeletal Surgical History: Reports: Other (See Below) Other Musculoskeletal Surgeries/Procedures:: Ankle plate/pin - hdwe removed Social & Family History - Family History Family Medical History: No Pertinent Family History Cardiac: Reports: DE - Tobacco Use Tobacco Use Status *Q: Current Every Day Tobacco User Years of Tobacco use: 20 Packs/Tins Daily: 0.5 - Caffeine Use Caffeine Use: Reports: Soda Caffeine Use Comment: occasional soda - Recreational Drug Use Recreational Drug Use: No ED ROS GENERAL - Review of Systems Review Of Systems: See Below Constitutional: Reports: Malaise HEENT: Reports: Other (Continues with jaundice). Denies: Vision Change Respiratory: Denies: Shortness of Breath GI/Abdominal: Reports: Abdominal Pain, Melena, Nausea. Denies: Vomiting : Reports: No Symptoms Skin: Reports: Jaundice Neurological: Reports: Dizziness, Weakness. Denies: Headache ED EXAM, GENERAL - Physical Exam Exam: See Below Exam Limited By: No Limitations General Appearance: Alert, No Apparent Distress, Other (Obviously jaundiced female) Eye Exam: Bilateral Eye: PERRL, Other (Scleral icterus bilaterally) Head: Atraumatic Neck: Supple, Non-Tender Respiratory/Chest: No Respiratory Distress, Lungs Clear Cardiovascular: Regular Rate, Rhythm, Tachycardia GI/Abdominal: Normal Bowel Sounds, Soft, Other (Fairly tender to palpation across her lower abdomen, equivocal guarding, no rebound tenderness). No: Distended Extremities: Pedal Edema (More than 1+ pitting edema bilaterally up past the knees into her thighs, edema is symmetric) Neurological: Alert, Oriented, No Motor/Sensory Deficits Psychiatric: Normal Affect, Normal Mood Skin Exam: Warm, Dry, Other (Significant diffuse jaundice is present) Course - Vital Signs Last Recorded V/S: Last Vital Signs Temp 98.2 F 02/26/21 03:11 Pulse 104 H 02/26/21 03:11 Resp 12 02/26/21 03:11 BP 119/69 02/26/21 03:11 Pulse Ox 98 02/26/21 03:11 - Orders/Labs/Meds Orders: Active Orders 24 hr Category Date Time Status COVID-19/FLU A+B/RSV [MOLEC] Stat Lab 02/26/21 01:47 Stop Req Sodium Chloride 0.9% [Normal Saline] 1,000 ml Med 02/26/21 01:15 Active IV ASDIRECTED Isolation [COMM] Stat Oth 02/26/21 01:47 Ordered Medication Orders Acetaminophen (Acetaminophen 325 Mg Tab) 650 mg PO Q4H PRN PRN Reason: analgesia/fever Acetaminophen (Acetaminophen 325 Mg Tab) 650 mg PO Q4H PRN PRN Reason: Pain (Mild 1-3)/fever Albuterol (Albuterol 0.083% 2.5 Mg/3 Ml Neb Soln) 2.5 mg NEB Q4H PRN PRN Reason: Shortness Of Breath/wheezing Albuterol/Ipratropium (Albuterol/Ipratropium 3.0-0.5 Mg/3 Ml Neb Soln) 3 ml NEB QID PRN PRN Reason: Shortness Of Breath/wheezing Cholecalciferol (Cholecalciferol (Vitamin D3) 25 Mcg Tab) 12.5 mcg PO DAILY [facility] Citalopram Hydrobromide (Citalopram 20 Mg Tab) 20 mg PO DAILY [facility] Cyanocobalamin (Cyanocobalamin (Vitamin B12) 1,000 Mcg Tab) 1,000 mcg PO DAILY [facility] Dicyclomine HCl (Dicyclomine 10 Mg Cap) 10 mg PO TID [facility] Furosemide (Furosemide 20 Mg Tab) 20 mg PO BIDDIURETIC [facility] Gabapentin (Gabapentin 300 Mg Cap) 600 mg PO TID [facility] Sodium Chloride (Normal Saline) 1,000 mls @ 125 mls/hr IV ASDIRECTED [facility] Last Admin: 02/26/21 01:35 Dose: 125 mls/hr Documented by: MARIANNA Ceftriaxone Sodium 1 gm/ (Sodium Chloride) 50 mls @ 100 mls/hr IV Q24H [facility] Sodium Chloride (Normal Saline) 1,000 mls @ 125 mls/hr IV ASDIRECTED [facility] Iron/Vitamin C (Ferrous Fumarate/Vitamin C 200-125 Mg Tab) 1 tab PO DAILY [facility] Lactulose (Lactulose Soln 10 Gm/15 Ml 15 Ml Ud Cup) 10 gm PO BID [facility] Magnesium Oxide (Magnesium Oxide 400 Mg Tab) 400 mg PO BID [facility] Miscellaneous Information (Remove Patch) 1 ea TRDERM Q24H [facility] Oxycodone HCl (Oxycodone 5 Mg Tab) 5 mg PO Q4H PRN PRN Reason: Pain (moderate 4-6) Pantoprazole Sodium (Pantoprazole 40 Mg Vial) 40 mg IV ACBREAKFAST [facility] Polyethylene Glycol (Polyethylene Glycol 3350 Powder 17 Gm Packet) 8 gm PO DAILY [facility] Scopolamine (Scopolamine 1.5 Mg Transdermal Patch) 1.5 mg TOP Q3D [facility] Last Admin: 02/26/21 04:21 Dose: 1.5 mg Documented by: RENEA Simethicone (Simethicone 125 Mg Tab.Chew) 125 mg PO Q4H [facility] Last Admin: 02/26/21 04:20 Dose: 125 mg Documented by: RENEA Spironolactone (Spironolactone 25 Mg Tab) 50 mg PO BID [facility] Sucralfate (Sucralfate 1 Gm Tab) 1 gm PO ASDIRECTED PRN PRN Reason: Heartburn Thiamine HCl (Thiamine 100 Mg Tab) 100 mg PO DAILY [facility] Trazodone HCl (Trazodone 50 Mg Tab) 50 mg PO BEDTIME [facility] Labs: Laboratory Tests 02/26/21 02/26/21 02/26/21 Range/Units 00:15 00:15 00:15 WBC 5.4 (4.5-11.0) K/uL RBC 2.43 L (3.30-5.50) M/uL Hgb 8.5 L (12.0-15.0) g/dL Hct 24.6 L (36.0-48.0) % MCV 101 H (80-98) fL MCH 35 H (27-31) pg MCHC 35 (32-36) % Plt Count 163 (150-400) K/uL Neut % (Auto) 55.5 (36-66) % Lymph % (Auto) 26.0 (24-44) % Bledsoe % (Auto) 16.6 H (2-6) % Eos % (Auto) 1.5 L (2-4) % Baso % (Auto) 0.4 (0-1) % PT 13.8 H (9.2-10.6) sec INR 1.4 Sodium 122 L (140-148) mmol/L Potassium 3.4 L (3.6-5.2) mmol/L Chloride 91 L (100-108) mmol/L Carbon Dioxide 23 (21-32) mmol/L Anion Gap 11.4 (5.0-14.0) mmol/L BUN 10 D (7-18) mg/dL Creatinine 1.0 (0.6-1.0) mg/dL Est Cr Clr Drug Dosing 57.53 mL/min Estimated GFR (MDRD) 59 L (>60) Glucose 87 (74-106) mg/dL Calcium 8.7 (8.5-10.1) mg/dL Total Bilirubin 2.5 H (0.2-1.0) mg/dL AST 46 H (15-37) U/L ALT 38 (12-78) U/L Alkaline Phosphatase 165 H (46-116) U/L Total Protein 6.8 (6.4-8.2) g/dL Albumin 2.3 L (3.4-5.0) g/dL Globulin 4.5 H (2.3-3.5) g/dL Albumin/Globulin Ratio 0.5 L (1.2-2.2) Urine Color (YELLOW) Urine Appearance (CLEAR) Urine pH (5.0-8.0) Ur Specific [place] (1.008-1.030) Urine Protein (NEGATIVE) mg/dL Urine Glucose (UA) (NEGATIVE) mg/dL Urine Ketones (NEGATIVE) mg/dL Urine Occult Blood (NEGATIVE) Urine Nitrite (NEGATIVE) Urine Bilirubin (NEGATIVE) Urine Urobilinogen (0.2-1.0) EU/dL Ur Leukocyte Esterase (NEGATIVE) Urine RBC (0-5) Urine WBC (0-5) Ur Epithelial Cells Amorphous Sediment Urine Bacteria Urine Mucus Influenza Type A RNA (NEGATIVE) RSV RNA (INAAT) (NEGATIVE) Influenza Type B RNA (NEGATIVE) SARS-CoV-2 RNA (EDGAR) (NEGATIVE) 02/26/21 02/26/21 Range/Units 00:43 01:48 WBC (4.5-11.0) K/uL RBC (3.30-5.50) M/uL Hgb (12.0-15.0) g/dL Hct (36.0-48.0) % MCV (80-98) fL MCH (27-31) pg MCHC (32-36) % Plt Count (150-400) K/uL Neut % (Auto) (36-66) % Lymph % (Auto) (24-44) % Bledsoe % (Auto) (2-6) % Eos % (Auto) (2-4) % Baso % (Auto) (0-1) % PT (9.2-10.6) sec INR Sodium (140-148) mmol/L Potassium (3.6-5.2) mmol/L Chloride (100-108) mmol/L Carbon Dioxide (21-32) mmol/L Anion Gap (5.0-14.0) mmol/L BUN (7-18) mg/dL Creatinine (0.6-1.0) mg/dL Est Cr Clr Drug Dosing mL/min Estimated GFR (MDRD) (>60) Glucose (74-106) mg/dL Calcium (8.5-10.1) mg/dL Total Bilirubin (0.2-1.0) mg/dL AST (15-37) U/L ALT (12-78) U/L Alkaline Phosphatase (46-116) U/L Total Protein (6.4-8.2) g/dL Albumin (3.4-5.0) g/dL Globulin (2.3-3.5) g/dL Albumin/Globulin Ratio (1.2-2.2) Urine Color Yellow (YELLOW) Urine Appearance Slightly cloudy A (CLEAR) Urine pH 5.5 (5.0-8.0) Ur Specific [place] 1.010 (1.008-1.030) Urine Protein Negative (NEGATIVE) mg/dL Urine Glucose (UA) Negative (NEGATIVE) mg/dL Urine Ketones Negative (NEGATIVE) mg/dL Urine Occult Blood Negative (NEGATIVE) Urine Nitrite Positive H (NEGATIVE) Urine Bilirubin Negative (NEGATIVE) Urine Urobilinogen 1.0 (0.2-1.0) EU/dL Ur Leukocyte Esterase Negative (NEGATIVE) Urine RBC Not seen (0-5) Urine WBC 0-5 (0-5) Ur Epithelial Cells Rare Amorphous Sediment Not seen Urine Bacteria Many Urine Mucus Not seen Influenza Type A RNA Negative (NEGATIVE) RSV RNA (INAAT) Negative (NEGATIVE) Influenza Type B RNA Negative (NEGATIVE) SARS-CoV-2 RNA (EDGAR) Negative (NEGATIVE) Meds: Medications Generic Name Dose Route Start Last Admin Trade Name Freq PRN Reason Stop Dose Admin Acetaminophen 650 mg 02/26/21 03:11 Acetaminophen 325 Mg Tab PO Q4H PRN analgesia/fever Acetaminophen 650 mg 02/26/21 03:11 Acetaminophen 325 Mg Tab PO Q4H PRN Pain (Mild 1-3)/fever Albuterol 2.5 mg 02/26/21 03:11 Albuterol 0.083% 2.5 Mg/3 Ml Neb Soln NEB Q4H PRN Shortness Of Breath/wheezing Albuterol/Ipratropium 3 ml 02/26/21 03:11 Albuterol/Ipratropium 3.0-0.5 Mg/3 Ml Neb Soln NEB QID PRN Shortness Of Breath/wheezing Cholecalciferol 12.5 mcg 02/26/21 09:00 Cholecalciferol (Vitamin D3) 25 Mcg Tab PO DAILY [facility] Citalopram Hydrobromide 20 mg 02/26/21 09:00 Citalopram 20 Mg Tab PO DAILY [facility] Cyanocobalamin 1,000 mcg 02/26/21 09:00 Cyanocobalamin (Vitamin B12) 1,000 Mcg Tab PO DAILY [facility] Dicyclomine HCl 10 mg 02/26/21 09:00 Dicyclomine 10 Mg Cap PO TID [facility] Furosemide 20 mg 02/26/21 08:00 Furosemide 20 Mg Tab PO BIDDIURETIC [facility] Gabapentin 600 mg 02/26/21 09:00 Gabapentin 300 Mg Cap PO TID [facility] Sodium Chloride 1,000 mls @ 125 mls/hr 02/26/21 01:15 02/26/21 01:35 Normal Saline IV 125 mls/hr ASDIRECTED [facility] Administration Ceftriaxone Sodium 1 gm/ 50 mls @ 100 mls/hr 02/26/21 21:00 Sodium Chloride IV Q24H [facility] Sodium Chloride 1,000 mls @ 125 mls/hr 02/26/21 03:11 Normal Saline IV ASDIRECTED [facility] Iron/Vitamin C 1 tab 02/26/21 09:00 Ferrous Fumarate/Vitamin C 200-125 Mg Tab PO DAILY [facility] Lactulose 10 gm 02/26/21 09:00 Lactulose Soln 10 Gm/15 Ml 15 Ml Ud Cup PO BID [facility] Magnesium Oxide 400 mg 02/26/21 09:00 Magnesium Oxide 400 Mg Tab PO BID [facility] Miscellaneous Information 1 ea 02/27/21 04:00 Remove Patch TRDERM Q24H [facility] Oxycodone HCl 5 mg 02/26/21 03:11 Oxycodone 5 Mg Tab PO Q4H PRN Pain (moderate 4-6) Pantoprazole Sodium 40 mg 02/26/21 07:30 Pantoprazole 40 Mg Vial IV ACBREAKFAST [facility] Polyethylene Glycol 8 gm 02/26/21 09:00 Polyethylene Glycol 3350 Powder 17 Gm Packet PO DAILY [facility] Scopolamine 1.5 mg 02/26/21 04:00 02/26/21 04:21 Scopolamine 1.5 Mg Transdermal Patch TOP 1.5 mg Q3D [facility] Administration Simethicone 125 mg 02/26/21 04:00 02/26/21 04:20 Simethicone 125 Mg Tab.Chew PO 125 mg Q4H [facility] Administration Spironolactone 50 mg 02/26/21 09:00 Spironolactone 25 Mg Tab PO BID [facility] Sucralfate 1 gm 02/26/21 03:11 Sucralfate 1 Gm Tab PO ASDIRECTED PRN Heartburn Thiamine HCl 100 mg 02/26/21 09:00 Thiamine 100 Mg Tab PO DAILY [facility] Trazodone HCl 50 mg 02/26/21 21:00 Trazodone 50 Mg Tab PO BEDTIME [facility] Discontinued Medications Generic Name Dose Route Start Last Admin Trade Name Freq PRN Reason Stop Dose Admin Ferrous Sulfate 325 mg 02/26/21 09:00 Ferrous Sulfate 325 Mg Tab PO DAILY [facility] Furosemide 40 mg 02/26/21 01:14 02/26/21 01:35 Furosemide 40 Mg/4 Ml Vial IVPUSH 02/26/21 01:15 40 mg ONETIME ONE Administration Ceftriaxone Sodium 1 gm/ 50 mls @ 100 mls/hr 02/26/21 04:00 02/26/21 04:17 Sodium Chloride IV 02/26/21 04:29 100 mls/hr NOW ONE Administration Pantoprazole Sodium 40 mg 02/26/21 01:14 02/26/21 01:55 Pantoprazole 40 Mg Vial IVPUSH 02/26/21 01:15 40 mg ONETIME ONE Administration - Re-Assessments/Exams Free Text/Narrative Re-Assessment/Exam: 02/26/21 01:07 Patient had a dark soft stool which was guaiac and was positive. CBC CMP was obtained and hemoglobin is 8.5 which is trending downward from her recent levels. White count is normal. 02/26/21 01:12 Sodium is 122 which is the low side for her, INR is 1.4. Bilirubin is 2.5 which is actually fairly good considering her baseline. I think because she has a hemoglobin of only 8.5, lower abdominal discomfort, and guaiac positive stools with dark stools she should be admitted, given some IV Protonix and normal saline and recheck a hemoglobin in the morning. A colonoscopy may be worthwhile. She had some significant gastritis on her recent EGD as well. Departure - Departure Time of Disposition: 03:25 Disposition: Admitted As Inpatient 64 Clinical Impression: Anemia due to chronic blood loss, Hyponatremia Abdominal pain Qualifiers: Abdominal location: lower abdomen, unspecified Qualified Code(s): R10.30 - Lower abdominal pain, unspecified Cirrhosis of liver Qualifiers: Hepatic cirrhosis type: alcoholic cirrhosis Ascites presence: with ascites Qualified Code(s): K70.31 - Alcoholic cirrhosis of liver with ascites GI bleed Qualifiers: GI bleed type/associated pathology: melena Qualified Code(s): K92.1 - Melena - Discharge Information Sepsis Event Note (ED) - Evaluation Sepsis Screening Result: No Definite Risk - Focused Exam Vital Signs: Vital Signs Temp Pulse Resp BP Pulse Ox 02/25/21 23:47 98.0 F 110 H 18 139/82 100 - My Orders Last 24 Hours: My Active Orders 02/26/21 01:15 Sodium Chloride 0.9% [Normal Saline] 1,000 ml IV ASDIRECTED 02/26/21 01:47 COVID-19/FLU A+B/RSV [MOLEC] Stat - Assessment/Plan Last 24 Hours: My Active Orders 02/26/21 01:15 Sodium Chloride 0.9% [Normal Saline] 1,000 ml IV ASDIRECTED 02/26/21 01:47 COVID-19/FLU A+B/RSV [MOLEC] Stat
[2021-02-26] MEDS ORDERED: Furosemide 40 MG/4 ML VIAL IVPUSH ONE (01:14)
[2021-02-26] MEDS ORDERED: Pantoprazole 40 MG Vial IVPUSH ONE (01:14)
[2021-02-26] MEDS ORDERED: Sodium Chloride 0.9% 1,000 ML IV SCH ×2 (01:15→03:11)
[2021-02-26 02:35] LABS: CORONAVIRUS COVID-19 NAA NEGATIVE (NEGATIVE)
--- NOTE | 2021-02-26 02:43 | PCM.HP.2 ---
H&P History of Present Illness - General Date of Service: 02/25/21 Admit Problem/Dx: Admission Diagnosis/Problem Admission Diagnosis/Problem Anemia Source of Information: Patient, Provider, RN History Limitations: Reports: No Limitations - History of Present Illness Initial Comments - Free Text/Narative: chief complaint; abdominal pain and lower leg edema, 18 pound weight gain the past 2-3 days. copy from ER note INITIAL COMMENTS - FREE TEXT/NARRATIVE: Ewelina is in at the convincing of her daughter because of some increased peripheral edema, lower abdominal discomfort, and dark stools over the past 12 to 24 hours. Her medications have been monitored as an outpatient after a couple of recent admissions and she had been "doing real well". She is concerned that her increased weight and edema along with her dark stools may be a setback, she is thinking clearly and does not feel like her ammonia level is elevated. No nausea or vomiting. Onset: Gradual Duration: Day(s): (2 to 3 days) Associated Symptoms: Reports: Loss of Appetite, Malaise, Weakness. Denies: Feve r/Chills, Headaches Lower Abdomen Onset of Symptoms: Reports: Sudden Symptom Onset Date: 02/23/21 Duration of Symptoms: Reports: Getting Worse Location: Reports: Abdomen, Radiates to (lower legs.) Quality: Reports: Same as Previous Episode Severity: Moderate Improves with: Reports: None Worsens with: Reports: None Context: Reports: Other (chronic disease) Associated Symptoms: Reports: Loss of Appetite, Nausea/Vomiting Lower Abdomen Pain Score (Numeric/FACES): 5 - Related Data Allergies/Adverse Reactions: Allergies Allergy/AdvReac Type Severity Reaction Status Date / Time doxycycline Allergy Intermediate Rash Verified 02/25/21 23:50 erythromycin base Allergy Intermediate Rash Verified 02/25/21 23:50 procaine [From Novocain] Allergy Intermediate Rash Verified 02/25/21 23:50 Home Medications: Home Meds Multivitamin [Multi-Vitamin Daily] 1 tab PO DAILY 12/02/15 [History] Gabapentin [Neurontin] 600 mg PO TID 07/13/18 [History] Albuterol Sulfate [Proair Respiclick] 1 - 2 puff IH Q4HR PRN 08/10/18 [History] Cyanocobalamin (Vitamin B-12) [Vitamin B-12] 1,000 mcg SL DAILY 08/10/18 [History] Magnesium 400 mg PO BID 11/23/18 [History] Citalopram [Citalopram HBr] 20 mg PO DAILY #30 tablet 04/14/19 [Rx] Lidocaine/Prilocaine [EMLA Crm] 1 applic TP ASDIRECTED PRN 10/30/20 [History] Ondansetron [Zofran ODT] 4 mg PO Q6H PRN 10/30/20 [History] SUMAtriptan succinate [Imitrex] 100 mg PO ASDIRECTED PRN 10/30/20 [History] traZODone 50 mg PO BEDTIME 10/30/20 [History] Dicyclomine [Bentyl] 10 mg PO TID 11/19/20 [History] Furosemide [Lasix] 20 mg PO BID #0 12/04/20 [Rx] Pantoprazole [ProTONIX] 40 mg PO ACBREAKFAST #30 tab.cr 12/04/20 [Rx] Spironolactone [Aldactone] 50 mg PO BID #0 12/04/20 [Rx] Cholecalciferol (Vitamin D3) [Vitamin D] 400 unit PO DAILY 01/26/21 [History] Ergocalciferol (Vitamin D2) [Vitamin D2] 1.25 mg PO ASDIRECTED 01/26/21 [History] Ferrous Fumarate/Vitamin C [Vitron-C] 1 tab PO DAILY 01/26/21 [History] Ferrous Sulfate 325 mg PO DAILY 01/26/21 [History] Scopolamine [Transderm-Scop] 1 patch TD Q3D 01/26/21 [History] Simethicone 125 mg PO Q4H 01/26/21 [History] Thiamine [Vitamin B-1] 100 mg PO DAILY 01/26/21 [History] Vitamin A Palmitate [Vitamin A] 50,000 unit PO DAILY 01/26/21 [History] Zinc 50 mg PO DAILY 01/26/21 [History] polyethylene glycoL 3350 [MiraLAX] 8 gm PO DAILY 01/26/21 [History] Lactulose [Chronulac] 10 gm PO BID #1000 ml 01/29/21 [Rx] metroNIDAZOLE 250 mg PO QID #20 tablet 01/29/21 [Rx] Sucralfate 1 dose PO ASDIRECTED 02/14/21 [History] fentaNYL [Duragesic] 1 patch TOP ASDIRECTED 02/26/21 [History] Past Medical History HEENT History: Reports: None Cardiovascular History: Reports: Hypertension Respiratory History: Reports: Asthma Gastrointestinal History: Reports: GERD, Other (See Below) Other Gastrointestinal History: RNY 2002 Genitourinary History: Reports: Other (See Below) Other Genitourinary History: 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 fistula QUALITY FACILITATOR History: Reports: Dysfunctional Uterine Bleeding, Musculoskeletal History: Reports: Fracture Neurological History: Reports: Migraines Psychiatric History: Reports: Addiction, Anxiety, Depression Endocrine/Metabolic History: Reports: Hypothyroidism, Vitamin D Deficiency Hematologic History: Reports: Anemia, B12 Deficiency, Blood Transfusion(s), Iron Deficiency, Other (See Below) Other Hematologic History: vitamin D def. liver failure Dermatologic History: Reports: Other (See Below) Other Dermatologic History: sores on face, neck, hands and back - Infectious Disease History Infectious Disease History: Reports: Chicken Pox, Measles - Past Surgical History HEENT Surgical History: Reports: Oral Surgery Cardiovascular Surgical History: Reports: None Respiratory Surgical History: Reports: None GI Surgical History: Reports: Bariatric Procedure, Cholecystectomy, Colonoscopy, EGD Female Surgical History: Reports: Section, Hysterectomy, Tubal Ligation Endocrine Surgical History: Reports: None Musculoskeletal Surgical History: Reports: Other (See Below) Other Musculoskeletal Surgeries/Procedures:: Ankle plate/pin - hdwe removed Social & Family History - Family History Family Medical History: No Pertinent Family History Cardiac: Reports: SC - Tobacco Use Tobacco Use Status *Q: Current Every Day Tobacco User Years of Tobacco use: 20 Packs/Tins Daily: 0.5 - Caffeine Use Caffeine Use: Reports: Soda Caffeine Use Comment: occasional soda - Recreational Drug Use Recreational Drug Use: No - Living Situation & Occupation Living situation: Reports: Single Occupation: Disabled (has her own home- Daughter, her Daughter's Boyfriends and thier 3 children live with her. They assist her with medications .) H&P Review of Systems - Review of Systems: Review Of Systems: See Below General: Reports: Malaise, Decreased Appetite, Weight Gain, Other (lower leg edema) HEENT: Reports: No Symptoms Pulmonary: Reports: No Symptoms Cardiovascular: Reports: Edema Gastrointestinal: Reports: Abdominal Pain, Black Stool Genitourinary: Reports: No Symptoms Musculoskeletal: Reports: No Symptoms Skin: Reports: Jaundice, Bruising Psychiatric: Reports: No Symptoms, Confusion (intermittent) Neurological: Reports: Headache Hematologic/Lymphatic: Reports: Easy Bleeding, Easy Bruising Immunologic: Reports: No Symptoms Exam - Exam Exam: See Below - Vital Signs Vital Signs: Last Vital Signs Temp 98.0 F 02/25/21 23:47 Pulse 110 H 02/25/21 23:47 Resp 18 02/25/21 23:47 BP 139/82 02/25/21 23:47 Pulse Ox 100 02/25/21 23:47 Weight: 165 lb 5.547 oz - Exam Quality Assessment: DVT Prophylaxis (scd) General: Alert, Oriented, Cooperative, Other (fragile, jaundice female with hoarse voice) HEENT: PERRLA, EOMI, Scleral Icterus Neck: Supple, Trachea Midline, 2 Lungs: Clear to Auscultation, Normal Respiratory Effort Cardiovascular: Regular Rate, Regular Rhythm, Normal S1, Normal S2 GI/Abdominal Exam: Normal Bowel Sounds, Soft, No Mass, Distended, Tender (low abdomen) (Female) Exam: Deferred Rectal (Female) Exam: Heme + Stool Back Exam: Normal Inspection, Full Range of Motion, NT Extremities: Normal Inspection, Normal Range of Motion, Non-Tender, No Pedal Edema, Normal Capillary Refill Peripheral Pulses: 2+: Radial (L), Radial (R), Dorsalis Pedis (L), Dorsalis Pedis (R) Skin: Warm, Dry, Intact, Other (jaundice) Neurological: Cranial Nerves Intact, Reflexes Equal Bilateral Neuro Extensive - Mental Status: Alert, Oriented x3, Normal Mood/Affect, Normal Cognition Neuro Extensive - Motor, Sensory, Reflexes: CN II-XII Intact, Normal Gait, Normal Reflexes Psychiatric: Alert, Normal Affect, Normal Mood - Patient Data Lab Results Last 24 hrs: Laboratory Results - last 24 hr 02/26/21 02/26/21 02/26/21 Range/Units 00:15 00:15 00:15 WBC 5.4 (4.5-11.0) K/uL RBC 2.43 L (3.30-5.50) M/uL Hgb 8.5 L (12.0-15.0) g/dL Hct 24.6 L (36.0-48.0) % MCV 101 H (80-98) fL MCH 35 H (27-31) pg MCHC 35 (32-36) % Plt Count 163 (150-400) K/uL Neut % (Auto) 55.5 (36-66) % Lymph % (Auto) 26.0 (24-44) % [place] % (Auto) 16.6 H (2-6) % Eos % (Auto) 1.5 L (2-4) % Baso % (Auto) 0.4 (0-1) % PT 13.8 H (9.2-10.6) sec INR 1.4 Sodium 122 L (140-148) mmol/L Potassium 3.4 L (3.6-5.2) mmol/L Chloride 91 L (100-108) mmol/L Carbon Dioxide 23 (21-32) mmol/L Anion Gap 11.4 (5.0-14.0) mmol/L BUN 10 D (7-18) mg/dL Creatinine 1.0 (0.6-1.0) mg/dL Est Cr Clr Drug Dosing 57.53 mL/min Estimated GFR (MDRD) 59 L (>60) Glucose 87 (74-106) mg/dL Calcium 8.7 (8.5-10.1) mg/dL Total Bilirubin 2.5 H (0.2-1.0) mg/dL AST 46 H (15-37) U/L ALT 38 (12-78) U/L Alkaline Phosphatase 165 H (46-116) U/L Total Protein 6.8 (6.4-8.2) g/dL Albumin 2.3 L (3.4-5.0) g/dL Globulin 4.5 H (2.3-3.5) g/dL Albumin/Globulin Ratio 0.5 L (1.2-2.2) Urine Color (YELLOW) Urine Appearance (CLEAR) Urine pH (5.0-8.0) Ur Specific [place] (1.008-1.030) Urine Protein (NEGATIVE) mg/dL Urine Glucose (UA) (NEGATIVE) mg/dL Urine Ketones (NEGATIVE) mg/dL Urine Occult Blood (NEGATIVE) Urine Nitrite (NEGATIVE) Urine Bilirubin (NEGATIVE) Urine Urobilinogen (0.2-1.0) EU/dL Ur Leukocyte Esterase (NEGATIVE) Urine RBC (0-5) Urine WBC (0-5) Ur Epithelial Cells Amorphous Sediment Urine Bacteria Urine Mucus Influenza Type A RNA (NEGATIVE) RSV RNA (INAAT) (NEGATIVE) Influenza Type B RNA (NEGATIVE) SARS-CoV-2 RNA (EDGAR) (NEGATIVE) 02/26/21 02/26/21 Range/Units 00:43 01:48 WBC (4.5-11.0) K/uL RBC (3.30-5.50) M/uL Hgb (12.0-15.0) g/dL Hct (36.0-48.0) % MCV (80-98) fL MCH (27-31) pg MCHC (32-36) % Plt Count (150-400) K/uL Neut % (Auto) (36-66) % Lymph % (Auto) (24-44) % [place] % (Auto) (2-6) % Eos % (Auto) (2-4) % Baso % (Auto) (0-1) % PT (9.2-10.6) sec INR Sodium (140-148) mmol/L Potassium (3.6-5.2) mmol/L Chloride (100-108) mmol/L Carbon Dioxide (21-32) mmol/L Anion Gap (5.0-14.0) mmol/L BUN (7-18) mg/dL Creatinine (0.6-1.0) mg/dL Est Cr Clr Drug Dosing mL/min Estimated GFR (MDRD) (>60) Glucose (74-106) mg/dL Calcium (8.5-10.1) mg/dL Total Bilirubin (0.2-1.0) mg/dL AST (15-37) U/L ALT (12-78) U/L Alkaline Phosphatase (46-116) U/L Total Protein (6.4-8.2) g/dL Albumin (3.4-5.0) g/dL Globulin (2.3-3.5) g/dL Albumin/Globulin Ratio (1.2-2.2) Urine Color Yellow (YELLOW) Urine Appearance Slightly cloudy A (CLEAR) Urine pH 5.5 (5.0-8.0) Ur Specific [place] 1.010 (1.008-1.030) Urine Protein Negative (NEGATIVE) mg/dL Urine Glucose (UA) Negative (NEGATIVE) mg/dL Urine Ketones Negative (NEGATIVE) mg/dL Urine Occult Blood Negative (NEGATIVE) Urine Nitrite Positive H (NEGATIVE) Urine Bilirubin Negative (NEGATIVE) Urine Urobilinogen 1.0 (0.2-1.0) EU/dL Ur Leukocyte Esterase Negative (NEGATIVE) Urine RBC Not seen (0-5) Urine WBC 0-5 (0-5) Ur Epithelial Cells Rare Amorphous Sediment Not seen Urine Bacteria Many Urine Mucus Not seen Influenza Type A RNA Negative (NEGATIVE) RSV RNA (INAAT) Negative (NEGATIVE) Influenza Type B RNA Negative (NEGATIVE) SARS-CoV-2 RNA (EDGAR) Negative (NEGATIVE) Result Diagrams: 02/26/21 00:15 02/26/21 00:15 Abdirashid Results Last 24 hrs: Microbiology 02/26/21 00:04 Stool Occult Blood (ABDIRASHID) - Final Stool / Feces Sepsis Event Note - Evaluation Sepsis Screening Result: No Definite Risk - Focused Exam Vital Signs: Vital Signs Temp Pulse Resp BP Pulse Ox 02/25/21 23:47 98.0 F 110 H 18 139/82 100 - Problem List (1) Anemia due to chronic blood loss SNOMED Code(s): 467377262 ICD Code: D50.0 - IRON DEFICIENCY ANEMIA SECONDARY TO BLOOD LOSS (CHRONIC) Status: Acute Priority: High Current Visit: Yes (2) Abdominal pain SNOMED Code(s): 06336245 ICD Code: R10.9 - UNSPECIFIED ABDOMINAL PAIN Status: Acute Priority: High Current Visit: Yes Qualifiers: Abdominal location: lower abdomen, unspecified Qualified Code(s): R10.30 - Lower abdominal pain, unspecified (3) UTI (urinary tract infection) SNOMED Code(s): 62139565 ICD Code: N39.0 - URINARY TRACT INFECTION, SITE NOT SPECIFIED Status: Acute Priority: High Current Visit: Yes Qualifiers: Urinary tract infection type: site unspecified Hematuria presence: without hematuria Qualified Code(s): N39.0 - Urinary tract infection, site not specified (4) Cirrhosis of liver SNOMED Code(s): 54486898 ICD Code: K74.60 - UNSPECIFIED CIRRHOSIS OF LIVER Status: Acute Current Visit: No Qualifiers: Hepatic cirrhosis type: alcoholic cirrhosis Ascites presence: without ascites Qualified Code(s): K70.30 - Alcoholic cirrhosis of liver without ascites Problem List Initiated/Reviewed/Updated: Yes Orders Last 24hrs: Active Orders 24 hr Category Date Time Status Patient Status Manage Transfer [TRANSFER] Routine ADT 02/26/21 02:09 Active COVID-19/FLU A+B/RSV [MOLEC] Stat Lab 02/26/21 01:47 Stop Req Sodium Chloride 0.9% [Normal Saline] 1,000 ml Med 02/26/21 01:15 Active IV ASDIRECTED Isolation [COMM] Stat Oth 02/26/21 01:47 Ordered Resuscitation Status Routine Resus Stat 02/26/21 02:11 Ordered Medication Orders Sodium Chloride (Normal Saline) 1,000 mls @ 125 mls/hr IV ASDIRECTED BILLY Last Admin: 02/26/21 01:35 Dose: 125 mls/hr Documented by: MARIANNA Assessment/Plan Comment:: Assessment/Plan Comment:: ASSESSMENT AND PLAN - AMENIA, CIRRHOSIS LIVER WITH JAUNDICE, ABDOMINAL PAIN, UTI Anemia- Ewelina reports has been feeling well for the past 2 -3 days, having swelling of lower legs and abdomen. Today she notice blood in her urine and black stool. generalized malaise, no appetite, intermittent memory loss or confusions -IV Normal Saline 125 ml/hr -IV Protonix 40 mg -Telemetry Cirrhosis of liver with jaundice -ammonia pending Abdominal pain- most likely due to cirrhosis and uti -am labs cbc, bmp UTI- urine nitrate positive -IV Rocephin 1 gram every 24 hours -urine culture pending Maintenance issues - - DVT prophylaxis - scd - GI prophylaxis -PPI - Nutrition -regular - [place] catheter -not indicated CODE STATUS -FULL Admission justification -this patient will be admitted for inpatient services and is medically appropriate meeting medical necessity for inpatient admission as outlined in my documentation. I reasonably expect the patient will require inpatient services that span a period time over 2 midnights. I reasonably expect this patient to be discharged or transferred within 96 hours [facility]. Disposition -I would anticipate discharge back to the care of Daughter Primary care physician - Dr. James, [place], [place]. Hospital - Dr. Dione Sparks - Mortality Measure good - Mortality Measure Prognosis:: Good
[2021-02-26] MEDS ORDERED: Acetaminophen 325 MG Tab PO PRN ×2 (03:11)
[2021-02-26] MEDS ORDERED: Albuterol/Ipratropium 3.0-0.5 MG/3 ML Neb Soln NEB PRN (03:11)
[2021-02-26] MEDS ORDERED: Sucralfate 1 GM Tab PO PRN ×2 (03:11→08:00)
[2021-02-26] MEDS ORDERED: Albuterol 0.083% 2.5 MG/3 ML Neb Soln NEB PRN (03:11)
[2021-02-26] MEDS ORDERED: oxyCODONE 5 MG Tab PO PRN (03:11)
[2021-02-26] MEDS ORDERED: Scopolamine 1.5 MG Transdermal Patch TOP SCH (04:00)
[2021-02-26] MEDS ORDERED: cefTRIAXone 1 GM in Sodium Chloride 0.9% 50 ML IV ONE (04:00)
[2021-02-26] MEDS: Simethicone 125 MG Tab.Chew PO SCH ×2 (04:20→08:45)
[2021-02-26] MEDS ORDERED: Pantoprazole 40 MG Vial IV SCH (07:30)
[2021-02-26] MEDS ORDERED: Potassium Chloride 20 MEQ Tab.ER PO ONE ×2 (08:30→17:00)
[2021-02-26] MEDS: Furosemide 20 MG Tab PO SCH ×2 (08:30→13:35)
[2021-02-26] MEDS: Spironolactone 25 MG Tab PO SCH ×2 (08:45→20:46)
[2021-02-26] MEDS: Cyanocobalamin (Vitamin B12) 1,000 MCG Tab PO SCH (08:46)
[2021-02-26] MEDS: Citalopram 20 MG Tab PO SCH (08:46)
[2021-02-26] MEDS: Magnesium Oxide 400 MG Tab PO SCH ×2 (08:46→20:48)
[2021-02-26] MEDS: Gabapentin 300 MG Cap PO SCH ×3 (08:47→20:48)
[2021-02-26] MEDS: Dicyclomine 10 MG Cap PO SCH ×3 (08:47→20:47)
[2021-02-26] MEDS: Thiamine 100 MG Tab PO SCH (08:47)
[2021-02-26] MEDS: Cholecalciferol (Vitamin D3) 25 MCG Tab PO SCH (08:48)
[2021-02-26] MEDS: Ferrous Fumarate/Vitamin C 200-125 MG Tab PO SCH (08:49)
[2021-02-26] MEDS: Polyethylene Glycol 3350 Powder 17 GM Packet PO SCH (08:59)
[2021-02-26] MEDS: Lactulose Soln 10 GM/15 ML 15 ML UD Cup PO SCH ×2 (08:59→20:48)
[2021-02-26] MEDS ORDERED: Ferrous Sulfate 325 MG Tab PO SCH (09:00)
[2021-02-26] MEDS ORDERED: Simethicone 125 MG Tab.Chew PO PRN (11:28)
--- NOTE | 2021-02-26 14:06 | PCM.PN ---
- General Info Date of Service: 02/26/21 Subjective Update: Ms. Grove is a 45-year-old woman with a known history of hepatic cirrhosis. She was admitted through the emergency department last night with possible GI bleed as well as increased peripheral edema and abdominal girth. Recorded weights on this admission are fairly similar to where they had been 1 month ago during her hospitalization. Hemoglobin has remained stable through the night with no evidence of active bleeding. She is somewhat sleepy and lethargic this morning. Ammonia level obtained at the time of admission was only slightly elevated at 34. Functional Status: Reports: Urinating - Review of Systems General: Reports: Weakness, Fatigue. Denies: Fever, Chills Pulmonary: Reports: No Symptoms Cardiovascular: Reports: No Symptoms Gastrointestinal: Reports: No Symptoms - Patient Data Vitals - Most Recent: Last Vital Signs Temp 97.8 F 02/26/21 11:51 Pulse 95 02/26/21 11:51 Resp 14 02/26/21 11:51 BP 104/70 02/26/21 11:51 Pulse Ox 99 02/26/21 11:51 Weight - Most Recent: 168 lb I&O - Last 24 Hours: Intake & Output 02/25/21 02/26/21 02/26/21 22:59 06:59 14:59 Intake Total 150 540 Output Total 600 800 Balance -450 -260 Lab Results Last 24 Hours: Laboratory Results - last 24 hr 02/26/21 02/26/21 02/26/21 Range/Units 00:15 00:15 00:15 WBC 5.4 (4.5-11.0) K/uL RBC 2.43 L (3.30-5.50) M/uL Hgb 8.5 L (12.0-15.0) g/dL Hct 24.6 L (36.0-48.0) % MCV 101 H (80-98) fL MCH 35 H (27-31) pg MCHC 35 (32-36) % Plt Count 163 (150-400) K/uL Neut % (Auto) 55.5 (36-66) % Lymph % (Auto) 26.0 (24-44) % [place] % (Auto) 16.6 H (2-6) % Eos % (Auto) 1.5 L (2-4) % Baso % (Auto) 0.4 (0-1) % PT 13.8 H (9.2-10.6) sec INR 1.4 Sodium 122 L (140-148) mmol/L Potassium 3.4 L (3.6-5.2) mmol/L Chloride 91 L (100-108) mmol/L Carbon Dioxide 23 (21-32) mmol/L Anion Gap 11.4 (5.0-14.0) mmol/L BUN 10 D (7-18) mg/dL Creatinine 1.0 (0.6-1.0) mg/dL Est Cr Clr Drug Dosing 57.53 mL/min Estimated GFR (MDRD) 59 L (>60) Glucose 87 (74-106) mg/dL Calcium 8.7 (8.5-10.1) mg/dL Total Bilirubin 2.5 H (0.2-1.0) mg/dL AST 46 H (15-37) U/L ALT 38 (12-78) U/L Alkaline Phosphatase 165 H (46-116) U/L Ammonia (11-32) umol/L Total Protein 6.8 (6.4-8.2) g/dL Albumin 2.3 L (3.4-5.0) g/dL Globulin 4.5 H (2.3-3.5) g/dL Albumin/Globulin Ratio 0.5 L (1.2-2.2) Urine Color (YELLOW) Urine Appearance (CLEAR) Urine pH (5.0-8.0) Ur Specific [place] (1.008-1.030) Urine Protein (NEGATIVE) mg/dL Urine Glucose (UA) (NEGATIVE) mg/dL Urine Ketones (NEGATIVE) mg/dL Urine Occult Blood (NEGATIVE) Urine Nitrite (NEGATIVE) Urine Bilirubin (NEGATIVE) Urine Urobilinogen (0.2-1.0) EU/dL Ur Leukocyte Esterase (NEGATIVE) Urine RBC (0-5) Urine WBC (0-5) Ur Epithelial Cells Amorphous Sediment Urine Bacteria Urine Mucus Influenza Type A RNA (NEGATIVE) RSV RNA (INAAT) (NEGATIVE) Influenza Type B RNA (NEGATIVE) SARS-CoV-2 RNA (EDGAR) (NEGATIVE) 02/26/21 02/26/21 02/26/21 Range/Units 00:43 01:48 04:56 WBC (4.5-11.0) K/uL RBC (3.30-5.50) M/uL Hgb (12.0-15.0) g/dL Hct (36.0-48.0) % MCV (80-98) fL MCH (27-31) pg MCHC (32-36) % Plt Count (150-400) K/uL Neut % (Auto) (36-66) % Lymph % (Auto) (24-44) % [place] % (Auto) (2-6) % Eos % (Auto) (2-4) % Baso % (Auto) (0-1) % PT (9.2-10.6) sec INR Sodium (140-148) mmol/L Potassium (3.6-5.2) mmol/L Chloride (100-108) mmol/L Carbon Dioxide (21-32) mmol/L Anion Gap (5.0-14.0) mmol/L BUN (7-18) mg/dL Creatinine (0.6-1.0) mg/dL Est Cr Clr Drug Dosing mL/min Estimated GFR (MDRD) (>60) Glucose (74-106) mg/dL Calcium (8.5-10.1) mg/dL Total Bilirubin (0.2-1.0) mg/dL AST (15-37) U/L ALT (12-78) U/L Alkaline Phosphatase (46-116) U/L Ammonia 34 H (11-32) umol/L Total Protein (6.4-8.2) g/dL Albumin (3.4-5.0) g/dL Globulin (2.3-3.5) g/dL Albumin/Globulin Ratio (1.2-2.2) Urine Color Yellow (YELLOW) Urine Appearance Slightly cloudy A (CLEAR) Urine pH 5.5 (5.0-8.0) Ur Specific [place] 1.010 (1.008-1.030) Urine Protein Negative (NEGATIVE) mg/dL Urine Glucose (UA) Negative (NEGATIVE) mg/dL Urine Ketones Negative (NEGATIVE) mg/dL Urine Occult Blood Negative (NEGATIVE) Urine Nitrite Positive H (NEGATIVE) Urine Bilirubin Negative (NEGATIVE) Urine Urobilinogen 1.0 (0.2-1.0) EU/dL Ur Leukocyte Esterase Negative (NEGATIVE) Urine RBC Not seen (0-5) Urine WBC 0-5 (0-5) Ur Epithelial Cells Rare Amorphous Sediment Not seen Urine Bacteria Many Urine Mucus Not seen Influenza Type A RNA Negative (NEGATIVE) RSV RNA (INAAT) Negative (NEGATIVE) Influenza Type B RNA Negative (NEGATIVE) SARS-CoV-2 RNA (EDGAR) Negative (NEGATIVE) 02/26/21 02/26/21 Range/Units 04:56 04:56 WBC 4.7 (4.5-11.0) K/uL RBC 2.42 L (3.30-5.50) M/uL Hgb 8.4 L (12.0-15.0) g/dL Hct 24.5 L (36.0-48.0) % MCV 101 H (80-98) fL MCH 35 H (27-31) pg MCHC 34 (32-36) % Plt Count 151 (150-400) K/uL Neut % (Auto) (36-66) % Lymph % (Auto) (24-44) % [place] % (Auto) (2-6) % Eos % (Auto) (2-4) % Baso % (Auto) (0-1) % PT (9.2-10.6) sec INR Sodium 125 L (140-148) mmol/L Potassium 3.2 L (3.6-5.2) mmol/L Chloride 93 L (100-108) mmol/L Carbon Dioxide 24 (21-32) mmol/L Anion Gap 11.2 (5.0-14.0) mmol/L BUN 9 (7-18) mg/dL Creatinine 0.9 (0.6-1.0) mg/dL Est Cr Clr Drug Dosing 63.92 mL/min Estimated GFR (MDRD) > 60 (>60) Glucose 101 (74-106) mg/dL Calcium 8.6 (8.5-10.1) mg/dL Total Bilirubin (0.2-1.0) mg/dL AST (15-37) U/L ALT (12-78) U/L Alkaline Phosphatase (46-116) U/L Ammonia (11-32) umol/L Total Protein (6.4-8.2) g/dL Albumin (3.4-5.0) g/dL Globulin (2.3-3.5) g/dL Albumin/Globulin Ratio (1.2-2.2) Urine Color (YELLOW) Urine Appearance (CLEAR) Urine pH (5.0-8.0) Ur Specific [place] (1.008-1.030) Urine Protein (NEGATIVE) mg/dL Urine Glucose (UA) (NEGATIVE) mg/dL Urine Ketones (NEGATIVE) mg/dL Urine Occult Blood (NEGATIVE) Urine Nitrite (NEGATIVE) Urine Bilirubin (NEGATIVE) Urine Urobilinogen (0.2-1.0) EU/dL Ur Leukocyte Esterase (NEGATIVE) Urine RBC (0-5) Urine WBC (0-5) Ur Epithelial Cells Amorphous Sediment Urine Bacteria Urine Mucus Influenza Type A RNA (NEGATIVE) RSV RNA (INAAT) (NEGATIVE) Influenza Type B RNA (NEGATIVE) SARS-CoV-2 RNA (EDGAR) (NEGATIVE) Abdirashid Results Last 24 Hours: Microbiology 02/26/21 00:04 Stool Occult Blood (ABDIRASHID) - Final Stool / Feces Med Orders - Current: Current Medications Acetaminophen (Acetaminophen 325 Mg Tab) 650 mg PO Q4H PRN PRN Reason: Pain (Mild 1-3)/fever Albuterol (Albuterol 0.083% 2.5 Mg/3 Ml Neb Soln) 2.5 mg NEB Q4H PRN PRN Reason: Shortness Of Breath/wheezing Albuterol/Ipratropium (Albuterol/Ipratropium 3.0-0.5 Mg/3 Ml Neb Soln) 3 ml NEB QID PRN PRN Reason: Shortness Of Breath/wheezing Cholecalciferol (Cholecalciferol (Vitamin D3) 25 Mcg Tab) 12.5 mcg PO DAILY [facility] Last Admin: 02/26/21 08:48 Dose: 12.5 mcg Documented by: Citalopram Hydrobromide (Citalopram 20 Mg Tab) 20 mg PO DAILY [facility] Last Admin: 02/26/21 08:46 Dose: 20 mg Documented by: Cyanocobalamin (Cyanocobalamin (Vitamin B12) 1,000 Mcg Tab) 1,000 mcg PO DAILY [facility] Last Admin: 02/26/21 08:46 Dose: 1,000 mcg Documented by: Dicyclomine HCl (Dicyclomine 10 Mg Cap) 10 mg PO TID [facility] Last Admin: 02/26/21 13:36 Dose: 10 mg Documented by: Furosemide (Furosemide 20 Mg Tab) 20 mg PO BIDDIURETIC [facility] Last Admin: 02/26/21 13:35 Dose: 20 mg Documented by: Gabapentin (Gabapentin 300 Mg Cap) 600 mg PO TID [facility] Last Admin: 02/26/21 13:35 Dose: 600 mg Documented by: Iron/Vitamin C (Ferrous Fumarate/Vitamin C 200-125 Mg Tab) 1 tab PO DAILY [facility] Last Admin: 02/26/21 08:49 Dose: 1 tab Documented by: Lactulose (Lactulose Soln 10 Gm/15 Ml 15 Ml Ud Cup) 10 gm PO BID [facility] Last Admin: 02/26/21 08:59 Dose: 10 gm Documented by: Magnesium Oxide (Magnesium Oxide 400 Mg Tab) 400 mg PO BID [facility] Last Admin: 02/26/21 08:46 Dose: 400 mg Documented by: Miscellaneous Information (Patch Check) 1 ea TRDERM DAILY [facility] Oxycodone HCl (Oxycodone 5 Mg Tab) 5 mg PO Q4H PRN PRN Reason: Pain (moderate 4-6) Pantoprazole Sodium (Pantoprazole 40 Mg Vial) 40 mg IV Q12H [facility] Polyethylene Glycol (Polyethylene Glycol 3350 Powder 17 Gm Packet) 8.5 gm PO DAILY [facility] Last Admin: 02/26/21 08:59 Dose: 8.5 gm Documented by: Potassium Chloride (Potassium Chloride 20 Meq Tab.Er) 40 meq PO ONETIME ONE Stop: 02/26/21 17:01 Scopolamine (Scopolamine 1.5 Mg Transdermal Patch) 1.5 mg TOP Q3D [facility] Last Admin: 02/26/21 04:21 Dose: 1.5 mg Documented by: Simethicone (Simethicone 125 Mg Tab.Chew) 125 mg PO Q6H PRN PRN Reason: Gas Spironolactone (Spironolactone 25 Mg Tab) 50 mg PO BID [facility] Last Admin: 02/26/21 08:45 Dose: 50 mg Documented by: Sucralfate (Sucralfate 1 Gm Tab) 1 gm PO QIDACANDBED PRN PRN Reason: Heartburn Thiamine HCl (Thiamine 100 Mg Tab) 100 mg PO DAILY [facility] Last Admin: 02/26/21 08:47 Dose: 100 mg Documented by: Trazodone HCl (Trazodone 50 Mg Tab) 50 mg PO BEDTIME [facility] Discontinued Medications Acetaminophen (Acetaminophen 325 Mg Tab) 650 mg PO Q4H PRN PRN Reason: analgesia/fever Ferrous Sulfate (Ferrous Sulfate 325 Mg Tab) 325 mg PO DAILY [facility] Furosemide (Furosemide 40 Mg/4 Ml Vial) 40 mg IVPUSH ONETIME ONE Stop: 02/26/21 01:15 Last Admin: 02/26/21 01:35 Dose: 40 mg Documented by: Sodium Chloride (Normal Saline) 1,000 mls @ 125 mls/hr IV ASDIRECTED [facility] Last Admin: 02/26/21 01:35 Dose: 125 mls/hr Documented by: Ceftriaxone Sodium 1 gm/ (Sodium Chloride) 50 mls @ 100 mls/hr IV Q24H [facility] Sodium Chloride (Normal Saline) 1,000 mls @ 125 mls/hr IV ASDIRECTED [facility] Last Admin: 02/26/21 10:47 Dose: 125 mls/hr Documented by: Ceftriaxone Sodium 1 gm/ (Sodium Chloride) 50 mls @ 100 mls/hr IV NOW ONE Stop: 02/26/21 04:29 Last Admin: 02/26/21 04:17 Dose: 100 mls/hr Documented by: Pantoprazole Sodium (Pantoprazole 40 Mg Vial) 40 mg IVPUSH ONETIME ONE Stop: 02/26/21 01:15 Last Admin: 02/26/21 01:55 Dose: 40 mg Documented by: Pantoprazole Sodium (Pantoprazole 40 Mg Vial) 40 mg IV ACBREAKFAST [facility] Last Admin: 02/26/21 08:25 Dose: 40 mg Documented by: Potassium Chloride (Potassium Chloride 20 Meq Tab.Er) 40 meq PO ONETIME ONE Stop: 02/26/21 08:31 Last Admin: 02/26/21 09:04 Dose: 40 meq Documented by: Simethicone (Simethicone 125 Mg Tab.Chew) 125 mg PO Q4H [facility] Last Admin: 02/26/21 08:45 Dose: 125 mg Documented by: Sucralfate (Sucralfate 1 Gm Tab) 1 gm PO ASDIRECTED PRN PRN Reason: Heartburn - Exam Quality Assessment: DVT Prophylaxis General: Lethargic Lungs: Clear to Auscultation, Normal Respiratory Effort, Decreased Breath Sounds Cardiovascular: Regular Rate, Regular Rhythm, No Murmurs GI/Abdominal Exam: Soft, Non-Tender, No Organomegaly, No Distention - Patient Data Lab Results Last 24 hrs: Laboratory Results - last 24 hr 02/26/21 02/26/21 02/26/21 Range/Units 00:15 00:15 00:15 WBC 5.4 (4.5-11.0) K/uL RBC 2.43 L (3.30-5.50) M/uL Hgb 8.5 L (12.0-15.0) g/dL Hct 24.6 L (36.0-48.0) % MCV 101 H (80-98) fL MCH 35 H (27-31) pg MCHC 35 (32-36) % Plt Count 163 (150-400) K/uL Neut % (Auto) 55.5 (36-66) % Lymph % (Auto) 26.0 (24-44) % [place] % (Auto) 16.6 H (2-6) % Eos % (Auto) 1.5 L (2-4) % Baso % (Auto) 0.4 (0-1) % PT 13.8 H (9.2-10.6) sec INR 1.4 Sodium 122 L (140-148) mmol/L Potassium 3.4 L (3.6-5.2) mmol/L Chloride 91 L (100-108) mmol/L Carbon Dioxide 23 (21-32) mmol/L Anion Gap 11.4 (5.0-14.0) mmol/L BUN 10 D (7-18) mg/dL Creatinine 1.0 (0.6-1.0) mg/dL Est Cr Clr Drug Dosing 57.53 mL/min Estimated GFR (MDRD) 59 L (>60) Glucose 87 (74-106) mg/dL Calcium 8.7 (8.5-10.1) mg/dL Total Bilirubin 2.5 H (0.2-1.0) mg/dL AST 46 H (15-37) U/L ALT 38 (12-78) U/L Alkaline Phosphatase 165 H (46-116) U/L Ammonia (11-32) umol/L Total Protein 6.8 (6.4-8.2) g/dL Albumin 2.3 L (3.4-5.0) g/dL Globulin 4.5 H (2.3-3.5) g/dL Albumin/Globulin Ratio 0.5 L (1.2-2.2) Urine Color (YELLOW) Urine Appearance (CLEAR) Urine pH (5.0-8.0) Ur Specific [place] (1.008-1.030) Urine Protein (NEGATIVE) mg/dL Urine Glucose (UA) (NEGATIVE) mg/dL Urine Ketones (NEGATIVE) mg/dL Urine Occult Blood (NEGATIVE) Urine Nitrite (NEGATIVE) Urine Bilirubin (NEGATIVE) Urine Urobilinogen (0.2-1.0) EU/dL Ur Leukocyte Esterase (NEGATIVE) Urine RBC (0-5) Urine WBC (0-5) Ur Epithelial Cells Amorphous Sediment Urine Bacteria Urine Mucus Influenza Type A RNA (NEGATIVE) RSV RNA (INAAT) (NEGATIVE) Influenza Type B RNA (NEGATIVE) SARS-CoV-2 RNA (EDGAR) (NEGATIVE) 02/26/21 02/26/21 02/26/21 Range/Units 00:43 01:48 04:56 WBC (4.5-11.0) K/uL RBC (3.30-5.50) M/uL Hgb (12.0-15.0) g/dL Hct (36.0-48.0) % MCV (80-98) fL MCH (27-31) pg MCHC (32-36) % Plt Count (150-400) K/uL Neut % (Auto) (36-66) % Lymph % (Auto) (24-44) % [place] % (Auto) (2-6) % Eos % (Auto) (2-4) % Baso % (Auto) (0-1) % PT (9.2-10.6) sec INR Sodium (140-148) mmol/L Potassium (3.6-5.2) mmol/L Chloride (100-108) mmol/L Carbon Dioxide (21-32) mmol/L Anion Gap (5.0-14.0) mmol/L BUN (7-18) mg/dL Creatinine (0.6-1.0) mg/dL Est Cr Clr Drug Dosing mL/min Estimated GFR (MDRD) (>60) Glucose (74-106) mg/dL Calcium (8.5-10.1) mg/dL Total Bilirubin (0.2-1.0) mg/dL AST (15-37) U/L ALT (12-78) U/L Alkaline Phosphatase (46-116) U/L Ammonia 34 H (11-32) umol/L Total Protein (6.4-8.2) g/dL Albumin (3.4-5.0) g/dL Globulin (2.3-3.5) g/dL Albumin/Globulin Ratio (1.2-2.2) Urine Color Yellow (YELLOW) Urine Appearance Slightly cloudy A (CLEAR) Urine pH 5.5 (5.0-8.0) Ur Specific [place] 1.010 (1.008-1.030) Urine Protein Negative (NEGATIVE) mg/dL Urine Glucose (UA) Negative (NEGATIVE) mg/dL Urine Ketones Negative (NEGATIVE) mg/dL Urine Occult Blood Negative (NEGATIVE) Urine Nitrite Positive H (NEGATIVE) Urine Bilirubin Negative (NEGATIVE) Urine Urobilinogen 1.0 (0.2-1.0) EU/dL Ur Leukocyte Esterase Negative (NEGATIVE) Urine RBC Not seen (0-5) Urine WBC 0-5 (0-5) Ur Epithelial Cells Rare Amorphous Sediment Not seen Urine Bacteria Many Urine Mucus Not seen Influenza Type A RNA Negative (NEGATIVE) RSV RNA (INAAT) Negative (NEGATIVE) Influenza Type B RNA Negative (NEGATIVE) SARS-CoV-2 RNA (EDGAR) Negative (NEGATIVE) 02/26/21 02/26/21 Range/Units 04:56 04:56 WBC 4.7 (4.5-11.0) K/uL RBC 2.42 L (3.30-5.50) M/uL Hgb 8.4 L (12.0-15.0) g/dL Hct 24.5 L (36.0-48.0) % MCV 101 H (80-98) fL MCH 35 H (27-31) pg MCHC 34 (32-36) % Plt Count 151 (150-400) K/uL Neut % (Auto) (36-66) % Lymph % (Auto) (24-44) % [place] % (Auto) (2-6) % Eos % (Auto) (2-4) % Baso % (Auto) (0-1) % PT (9.2-10.6) sec INR Sodium 125 L (140-148) mmol/L Potassium 3.2 L (3.6-5.2) mmol/L Chloride 93 L (100-108) mmol/L Carbon Dioxide 24 (21-32) mmol/L Anion Gap 11.2 (5.0-14.0) mmol/L BUN 9 (7-18) mg/dL Creatinine 0.9 (0.6-1.0) mg/dL Est Cr Clr Drug Dosing 63.92 mL/min Estimated GFR (MDRD) > 60 (>60) Glucose 101 (74-106) mg/dL Calcium 8.6 (8.5-10.1) mg/dL Total Bilirubin (0.2-1.0) mg/dL AST (15-37) U/L ALT (12-78) U/L Alkaline Phosphatase (46-116) U/L Ammonia (11-32) umol/L Total Protein (6.4-8.2) g/dL Albumin (3.4-5.0) g/dL Globulin (2.3-3.5) g/dL Albumin/Globulin Ratio (1.2-2.2) Urine Color (YELLOW) Urine Appearance (CLEAR) Urine pH (5.0-8.0) Ur Specific [place] (1.008-1.030) Urine Protein (NEGATIVE) mg/dL Urine Glucose (UA) (NEGATIVE) mg/dL Urine Ketones (NEGATIVE) mg/dL Urine Occult Blood (NEGATIVE) Urine Nitrite (NEGATIVE) Urine Bilirubin (NEGATIVE) Urine Urobilinogen (0.2-1.0) EU/dL Ur Leukocyte Esterase (NEGATIVE) Urine RBC (0-5) Urine WBC (0-5) Ur Epithelial Cells Amorphous Sediment Urine Bacteria Urine Mucus Influenza Type A RNA (NEGATIVE) RSV RNA (INAAT) (NEGATIVE) Influenza Type B RNA (NEGATIVE) SARS-CoV-2 RNA (EDGAR) (NEGATIVE) Result Diagrams: 02/26/21 04:56 02/26/21 04:56 Abdirashid Results Last 24 hrs: Microbiology 02/26/21 00:04 Stool Occult Blood (ABDIRASHID) - Final Stool / Feces Sepsis Event Note - Evaluation Sepsis Screening Result: No Definite Risk - Focused Exam Vital Signs: Vital Signs Temp Pulse Resp BP Pulse Ox 02/26/21 11:51 97.8 F 95 14 104/70 99 02/26/21 08:00 97.7 F 97 16 117/73 99 02/26/21 03:11 98.2 F 104 H 12 119/69 98 - Problem List Review Problem List Initiated/Reviewed/Updated: Yes - My Orders Last 24 Hours: My Active Orders 02/26/21 11:28 Simethicone 125 mg PO Q6H PRN 02/26/21 13:52 Consult to Physician [CONS] Routine 02/26/21 13:53 Notify Provider Consults [RC] ASDIRECTED 02/26/21 13:54 Convert IV to Saline Lock [OM.PC] Routine 02/26/21 17:00 HGB [HEMOGLOBIN] [HEME] Stat Potassium Chloride [Klor-Con M20] 40 meq PO ONETIME ONE 02/26/21 20:00 Pantoprazole [ProTONIX IV] 40 mg IV Q12H 02/27/21 05:00 CBC WITH AUTO DIFF [HEME] Timed COMPREHENSIVE METABOLIC PN,CMP [CHEM] Timed 02/27/21 Breakfast NPO After Midnight [Nothing per Oral After Midnight Diet] [DIET] 02/27/21 09:00 Remove Patch 1 ea ALEXEI DAILY - Plan Plan:: ASSESSMENT AND PLAN Anemia-she does have baseline anemia of chronic illness, hemoglobin mildly lower than what it was during her last admission 1 month ago. Recent history of melenic appearing stools that were found to be heme positive in the emergency department. No evidence of active bleeding noted since admission, hemoglobin has remained stable even with hydration. -Saline lock IV -IV Protonix 40 mg every 12 hours -N.p.o. after midnight -EGD in a.m. with Dr. Gonsalez Cirrhosis of liver with jaundice-appears to be fairly stable since last admission. Question of possible increase in peripheral edema as well as abdominal girth. Weight appears to be fairly stable since her admission 1 month ago. She is somewhat lethargic today but states that she did not get much sleep during the night. Reports that she has been taking all of her medication including lactulose. Ammonia level was only slightly elevated. -Continue outpatient medications Abdominal pain-resolved Maintenance issues - - DVT prophylaxis - scd - GI prophylaxis -PPI - Nutrition -regular - Buchanan catheter -not indicated CODE STATUS -FULL Admission justification -this patient will be admitted for inpatient services and is medically appropriate meeting medical necessity for inpatient admission as outlined in my documentation. I reasonably expect the patient will require inpatient services that span a period time over 2 midnights. I reasonably expect this patient to be discharged or transferred within 96 hours [facility]. Disposition -I would anticipate discharge back to the care of [facility] Primary care physician - Dr. James, [facility], [facility] - Dr. Dione Sparks
[2021-02-26] MEDS: Pantoprazole 40 MG Vial IV SCH (20:46)
[2021-02-26] MEDS: traZODone 50 MG Tab PO SCH (20:49)
[2021-02-26] MEDS ORDERED: cefTRIAXone 1 GM in Sodium Chloride 0.9% 50 ML IV SCH (21:00)
--- NOTE | 2021-02-27 07:42 | PCM.CONS ---
H&P History of Present Illness - General Date of Service: 02/27/21 Admit Problem/Dx: Admission Diagnosis/Problem Admission Diagnosis/Problem Anemia Consult for an EGD with possible biopsies due to hemoglobin of 7.9. Ewelina was admitted for dark Stools, edema and low abdominal pain. Source of Information: Patient - History of Present Illness Onset of Symptoms: Reports: Unknown/Unsure Duration of Symptoms: Reports: Getting Worse Improves with: Reports: None Worsens with: Reports: None Associated Symptoms: Reports: Loss of Appetite, Weakness Lower Abdomen Pain Score (Numeric/FACES): 1 - Related Data Allergies/Adverse Reactions: Allergies Allergy/AdvReac Type Severity Reaction Status Date / Time doxycycline Allergy Intermediate Rash Verified 02/25/21 23:50 erythromycin base Allergy Intermediate Rash Verified 02/25/21 23:50 procaine [From Novocain] Allergy Intermediate Rash Verified 02/25/21 23:50 Home Medications: Home Meds Multivitamin [Multi-Vitamin Daily] 1 tab PO DAILY 12/02/15 [History] Gabapentin [Neurontin] 600 mg PO TID 07/13/18 [History] Albuterol Sulfate [Proair Respiclick] 1 - 2 puff IH Q4HR PRN 08/10/18 [History] Cyanocobalamin (Vitamin B-12) [Vitamin B-12] 1,000 mcg SL DAILY 08/10/18 [History] Magnesium 400 mg PO BID 11/23/18 [History] Citalopram [Citalopram HBr] 20 mg PO DAILY #30 tablet 04/14/19 [Rx] Lidocaine/Prilocaine [EMLA Crm] 1 applic TP ASDIRECTED PRN 10/30/20 [History] Ondansetron [Zofran ODT] 4 mg PO Q6H PRN 10/30/20 [History] SUMAtriptan succinate [Imitrex] 100 mg PO ASDIRECTED PRN 10/30/20 [History] traZODone 50 mg PO BEDTIME 10/30/20 [History] Dicyclomine [Bentyl] 10 mg PO TID 11/19/20 [History] Furosemide [Lasix] 20 mg PO BID #0 12/04/20 [Rx] Pantoprazole [ProTONIX] 40 mg PO ACBREAKFAST #30 tab.cr 12/04/20 [Rx] Spironolactone [Aldactone] 50 mg PO BID #0 12/04/20 [Rx] Cholecalciferol (Vitamin D3) [Vitamin D] 400 unit PO DAILY 01/26/21 [History] Ergocalciferol (Vitamin D2) [Vitamin D2] 1.25 mg PO ASDIRECTED 01/26/21 [History] Ferrous Fumarate/Vitamin C [Vitron-C] 1 tab PO DAILY 01/26/21 [History] Ferrous Sulfate 325 mg PO DAILY 01/26/21 [History] Scopolamine [Transderm-Scop] 1 patch TD Q3D 01/26/21 [History] Simethicone 125 mg PO Q4H 01/26/21 [History] Thiamine [Vitamin B-1] 100 mg PO DAILY 01/26/21 [History] Vitamin A Palmitate [Vitamin A] 50,000 unit PO DAILY 01/26/21 [History] Zinc 50 mg PO DAILY 01/26/21 [History] polyethylene glycoL 3350 [MiraLAX] 8 gm PO DAILY 01/26/21 [History] Lactulose [Chronulac] 10 gm PO BID #1000 ml 01/29/21 [Rx] metroNIDAZOLE 250 mg PO QID #20 tablet 01/29/21 [Rx] Sucralfate 1 dose PO ASDIRECTED 02/14/21 [History] fentaNYL [Duragesic] 1 patch TOP ASDIRECTED 02/26/21 [History] Past Medical History HEENT History: Reports: None Cardiovascular History: Reports: Hypertension Respiratory History: Reports: Asthma Gastrointestinal History: Reports: Cirrhosis, GERD, Other (See Below) Other Gastrointestinal History: RNY 2002 Genitourinary History: Reports: Other (See Below) Other Genitourinary History: 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 fistula [employer] History: Reports: Dysfunctional Uterine Bleeding, Musculoskeletal History: Reports: Fracture Neurological History: Reports: Migraines Psychiatric History: Reports: Addiction, Anxiety, Depression Endocrine/Metabolic History: Reports: Hypothyroidism, Vitamin D Deficiency Hematologic History: Reports: Anemia, B12 Deficiency, Blood Transfusion(s), Iron Deficiency, Other (See Below) Other Hematologic History: vitamin D def. liver failure Dermatologic History: Reports: Other (See Below) Other Dermatologic History: sores on face, neck, hands and back - Infectious Disease History Infectious Disease History: Reports: Chicken Pox, Measles - Past Surgical History HEENT Surgical History: Reports: Oral Surgery Cardiovascular Surgical History: Reports: None Respiratory Surgical History: Reports: None GI Surgical History: Reports: Bariatric Procedure, Cholecystectomy, Colonoscopy, EGD Female Surgical History: Reports: Section, Hysterectomy, Tubal Ligation Endocrine Surgical History: Reports: None Musculoskeletal Surgical History: Reports: Other (See Below) Other Musculoskeletal Surgeries/Procedures:: Ankle plate/pin - hdwe removed Social & Family History - Family History Family Medical History: No Pertinent Family History Cardiac: Reports: [place] - Tobacco Use Tobacco Use Status *Q: Current Some Day Tobacco User Years of Tobacco use: 10 Packs/Tins Daily: 0.5 - Caffeine Use Caffeine Use: Reports: Soda Caffeine Use Comment: occasional soda - Alcohol Use Date of Last Drink: 10/30/20 - Recreational Drug Use Recreational Drug Use: Yes Recreational Drug Type: Reports: Other (see below) Other Recreational Drug Type: CBD gummies Recreational Drug Use Frequency: Rarely - Living Situation & Occupation Living situation: Reports: Single Occupation: Disabled (has her own home- Daughter, her Daughter's Boyfriends and thier 3 children live with her. They assist her with medications .) H&P Review of Systems - Review of Systems: Review Of Systems: See Below General: Reports: Weakness, Weight Gain (thinks it is fluid retention. ) HEENT: Reports: No Symptoms Pulmonary: Reports: Shortness of Breath Cardiovascular: Reports: No Symptoms Gastrointestinal: Reports: Black Stool, Decreased Appetite Genitourinary: Reports: No Symptoms Musculoskeletal: Reports: No Symptoms Skin: Reports: No Symptoms Psychiatric: Reports: No Symptoms Neurological: Reports: No Symptoms Hematologic/Lymphatic: Reports: Anemia Immunologic: Reports: No Symptoms Exam - Exam Exam: See Below - Vital Signs Vital Signs: Last Vital Signs Temp 97.1 F 02/27/21 04:00 Pulse 95 02/27/21 04:00 Resp 14 02/27/21 04:00 BP 111/71 02/27/21 04:00 Pulse Ox 97 02/27/21 04:00 Weight: 168 lb - Exam General: Alert, Oriented, Mild Distress HEENT: PERRLA Neck: Supple, Trachea Midline Lungs: Clear to Auscultation Cardiovascular: Regular Rate, Regular Rhythm GI/Abdominal Exam: Soft, Non-Tender, Distended (Female) Exam: Deferred Rectal (Female) Exam: Deferred Back Exam: Normal Inspection Extremities: Normal Inspection Neurological: Reflexes Equal Bilateral Neuro Extensive - Mental Status: Alert, Oriented x3, Normal Mood/Affect Psychiatric: Alert, Normal Affect, Normal Mood - Patient Data Lab Results Last 24 hrs: Laboratory Results - last 24 hr 02/26/21 02/27/21 02/27/21 Range/Units 17:00 06:08 06:08 WBC 2.8 L (4.5-11.0) K/uL RBC 2.28 L (3.30-5.50) M/uL Hgb 8.4 L 7.9 L (12.0-15.0) g/dL Hct 23.5 L (36.0-48.0) % MCV 103 H (80-98) fL MCH 35 H (27-31) pg MCHC 34 (32-36) % Plt Count 128 L (150-400) K/uL Neut % (Auto) 42.7 (36-66) % Lymph % (Auto) 36.4 (24-44) % Divide % (Auto) 17.0 H (2-6) % Eos % (Auto) 3.5 (2-4) % Baso % (Auto) 0.4 (0-1) % Sodium 131 L (140-148) mmol/L Potassium 4.0 (3.6-5.2) mmol/L Chloride 99 L (100-108) mmol/L Carbon Dioxide 26 (21-32) mmol/L Anion Gap 10.0 (5.0-14.0) mmol/L BUN 7 (7-18) mg/dL Creatinine 0.8 (0.6-1.0) mg/dL Est Cr Clr Drug Dosing 71.91 mL/min Estimated GFR (MDRD) > 60 (>60) Glucose 71 L (74-106) mg/dL Calcium 8.3 L (8.5-10.1) mg/dL Total Bilirubin 2.4 H (0.2-1.0) mg/dL AST 38 H (15-37) U/L ALT 33 (12-78) U/L Alkaline Phosphatase 126 H (46-116) U/L Total Protein 5.9 L (6.4-8.2) g/dL Albumin 1.9 L (3.4-5.0) g/dL Globulin 4.0 H (2.3-3.5) g/dL Albumin/Globulin Ratio 0.5 L (1.2-2.2) Result Diagrams: 02/27/21 06:08 02/27/21 06:08 Abdirashid Results Last 24 hrs: Microbiology 02/26/21 03:15 Urine Culture - Preliminary Urine, Clean Catch Sepsis Event Note - Evaluation Sepsis Screening Result: No Definite Risk - Focused Exam Vital Signs: Vital Signs Temp Pulse Resp BP Pulse Ox 02/27/21 04:00 97.1 F 95 14 111/71 97 Consult PN Assessment/Plan POD#: 0 Procedures: Procedures ABD PARACENTESIS W/IMAGING (11/08/20) APPLY FOREARM SPLINT (11/20/17) ASSAY GLUCOSE BLOOD QUANT (02/04/21) ASSAY OF AMMONIA (02/04/21) ASSAY OF AMYLASE (02/04/21) ASSAY OF CK (CPK) (02/04/21) ASSAY OF COPPER (07/13/18) ASSAY OF FERRITIN (10/04/20) ASSAY OF FOLIC ACID SERUM (07/13/18) ASSAY OF LACTIC ACID (02/04/21) ASSAY OF LIPASE (02/14/21) ASSAY OF MAGNESIUM (02/04/21) ASSAY OF NATRIURETIC PEPTIDE (07/13/18) ASSAY OF SERUM POTASSIUM (09/13/20) ASSAY OF TROPONIN QUANT (02/04/21) ASSAY OF VITAMIN A (07/13/18) ASSAY OF ZINC (07/13/18) ASSAY THYROID STIM HORMONE (10/12/20) BLOOD CULTURE FOR BACTERIA (02/04/21) BLOOD TRANSFUSION SERVICE (07/13/18) BLOOD TYPING SEROLOGIC ABO (07/13/18) BLOOD TYPING SEROLOGIC RH(D) (07/13/18) BREAST TOMOSYNTHESIS BI (07/08/20) C DIFF AMPLIFIED PROBE (08/28/18) C-REACTIVE PROTEIN (02/14/21) CHORIONIC GONADOTROPIN TEST (07/14/18) COLONOSCOPY AND BIOPSY (11/01/20) COLONOSCOPY W/LESION REMOVAL (11/01/20) COMPATIBILITY TEST ANTIGLOB (07/13/18) COMPATIBILITY TEST SPIN (07/13/18) COMPLETE CBC AUTOMATED (12/11/20) COMPLETE CBC W/AUTO DIFF WBC (02/04/21) COMPREHEN METABOLIC PANEL (02/04/21) CT ABD & PELV W/CONTRAST (08/11/18) CULTURE AEROBIC IDENTIFY (08/01/20) CULTURE SCREEN ONLY (07/28/16) DRAINAGE OF GUM LESION (05/23/16) DRUG TEST PRSMV CHEM ANLYZR (02/14/21) DRUG TEST PRSMV DIR OPT OBS (10/12/20) ECHO EXAM OF ABDOMEN (02/04/21) EGD BIOPSY SINGLE/MULTIPLE (07/28/16) ELECTROCARDIOGRAM TRACING (08/01/20) EMERGENCY DEPT VISIT (02/14/21) EMERGENCY DEPT VISIT (08/01/20) EMERGENCY DEPT VISIT (04/15/19) EMERGENCY DEPT VISIT (05/23/16) EMERGENCY DEPT VISIT (12/02/15) EXTREMITY STUDY (11/07/20) HEMOGLOBIN (07/15/18) HOT OR COLD PACKS THERAPY (01/02/19) HYDRATE IV INFUSION ADD-ON (08/08/16) IRON BINDING TEST (10/04/20) MANUAL THERAPY 1/> REGIONS (07/12/18) METABOLIC PANEL TOTAL CA (10/12/20) MICROBE SUSCEPTIBLE ABDIRASHID (10/12/20) MRI JNT OF LWR EXTRE W/O DYE (03/15/18) MRI JOINT UPR EXTREM W/O DYE (04/21/18) MRI UPPER EXTREMITY W/O DYE (04/14/18) ORTHOTIC MGMT&TRAING 1ST ENC (05/30/18) OT EVAL LOW COMPLEX 30 MIN (01/02/19) OT EVAL MOD COMPLEX 45 MIN (05/30/18) PARAFFIN BATH THERAPY (07/12/18) PHYSICAL PERFORMANCE TEST (11/10/18) PROCALCITONIN (PCT) (10/04/20) PROTHROMBIN TIME (02/04/21) RBC ANTIBODY SCREEN (07/13/18) REMOVE SKIN NERVE LESION (11/25/18) ROUTINE VENIPUNCTURE (02/14/21) RPR VENTRAL CASE INIT REDUC (11/25/18) SARS-COV-2 COVID-19 AMP PRB (10/30/20) SCR MAMMO BI INCL CAD (07/08/20) THER/DIAG CONCURRENT INF (10/12/20) THER/PROPH/DIAG INJ IV PUSH (07/13/18) THER/PROPH/DIAG IV INF ADDON (02/04/21) THER/PROPH/DIAG IV INF INIT (02/04/21) THERAPEUTIC EXERCISES (06/30/18) THROMBOPLASTIN TIME PARTIAL (02/04/21) TISSUE EXAM BY PATHOLOGIST (11/25/18) TRANSVAGINAL US NON-OB (07/14/18) TX/PRO/DX INJ NEW DRUG ADDON (02/04/21) ULTRASOUND THERAPY (07/12/18) URINALYSIS AUTO W/SCOPE (10/12/20) URINE BACTERIA CULTURE (10/12/20) URINE CULTURE/COLONY COUNT (10/12/20) US EXAM PELVIC COMPLETE (07/14/18) VITAMIN B-12 (07/13/18) VITAMIN D 25 HYDROXY (07/13/18) WORK HARDENING (03/13/19) WORK HARDENING ADD-ON (01/02/19) X-RAY EXAM CHEST 1 VIEW (07/13/18) X-RAY EXAM OF HAND (11/20/17) X-RAY EXAM OF SHOULDER (10/16/15) Problem List Initiated/Reviewed/Updated: Yes My Orders Last 24 Hours: My Active Orders 02/27/21 07:06 Verify Patient Consent Obtain [RC] ASDIRECTED 02/27/21 08:00 Glycopyrrolate 0.4 mg IVPUSH ONETIME ONE Orders to be written after EGD. Thank you for this consultation. Kathryn Harris 02/27/2021
[2021-02-27] MEDS ORDERED: Glycopyrrolate 0.2 MG/ML 2 ML SDV IVPUSH ONE (08:00)
[2021-02-27] MEDS: Dicyclomine 10 MG Cap PO SCH ×3 (08:14→20:31)
[2021-02-27] MEDS: Spironolactone 25 MG Tab PO SCH ×2 (08:14→20:31)
[2021-02-27] MEDS: Furosemide 20 MG Tab PO SCH ×2 (08:14→14:07)
[2021-02-27] MEDS: Pantoprazole 40 MG Vial IV SCH (08:14)
[2021-02-27] MEDS: Citalopram 20 MG Tab PO SCH (08:14)
[2021-02-27] MEDS: Polyethylene Glycol 3350 Powder 17 GM Packet PO SCH (08:15)
[2021-02-27] MEDS: Cholecalciferol (Vitamin D3) 25 MCG Tab PO SCH (08:15)
[2021-02-27] MEDS: Thiamine 100 MG Tab PO SCH (08:15)
[2021-02-27] MEDS: Magnesium Oxide 400 MG Tab PO SCH ×2 (08:15→20:31)
[2021-02-27] MEDS: Gabapentin 300 MG Cap PO SCH ×3 (08:15→20:31)
[2021-02-27] MEDS: Cyanocobalamin (Vitamin B12) 1,000 MCG Tab PO SCH (08:15)
[2021-02-27] MEDS: Lactulose Soln 10 GM/15 ML 15 ML UD Cup PO SCH ×2 (08:15→20:31)
[2021-02-27] MEDS: Ferrous Fumarate/Vitamin C 200-125 MG Tab PO SCH (08:15)
[2021-02-27] MEDS ORDERED: Midazolam 1 MG/ML 2 ML SDV ONE (09:52)
[2021-02-27] MEDS ORDERED: Propofol 200 MG/20 ML SDV ONE ×2 (09:52→10:33)
[2021-02-27] MEDS ORDERED: fentaNYL 100 MCG/2 ML SDV ONE (09:52)
[2021-02-27] MEDS: CHECK TRDERM SCH (14:06)
--- NOTE | 2021-02-27 14:33 | PCM.PN ---
- General Info Date of Service: 02/27/21 Subjective Update: Ms. Grove has been stable since yesterday with no evidence of active bleeding. She reports that she is feeling well and has been alert and oriented. EGD was performed this morning by Dr. Gonsalez and she was found to have a bezoar but no other significant abnormalities. Functional Status: Reports: Tolerating Diet, Ambulating, Urinating - Review of Systems General: Reports: No Symptoms Pulmonary: Reports: No Symptoms Cardiovascular: Reports: No Symptoms Gastrointestinal: Reports: No Symptoms - Patient Data Vitals - Most Recent: Last Vital Signs Temp 96.8 F L 02/27/21 12:30 Pulse 84 02/27/21 13:56 Resp 12 02/27/21 13:56 BP 97/53 L 02/27/21 13:56 Pulse Ox 96 02/27/21 13:56 Weight - Most Recent: 168 lb I&O - Last 24 Hours: Intake & Output 02/26/21 02/27/21 02/27/21 22:59 06:59 14:59 Intake Total 450 75 Output Total 1350 700 Balance -1350 -250 75 Lab Results Last 24 Hours: Laboratory Results - last 24 hr 02/26/21 02/27/21 02/27/21 Range/Units 17:00 06:08 06:08 WBC 2.8 L (4.5-11.0) K/uL RBC 2.28 L (3.30-5.50) M/uL Hgb 8.4 L 7.9 L (12.0-15.0) g/dL Hct 23.5 L (36.0-48.0) % MCV 103 H (80-98) fL MCH 35 H (27-31) pg MCHC 34 (32-36) % Plt Count 128 L (150-400) K/uL Neut % (Auto) 42.7 (36-66) % Lymph % (Auto) 36.4 (24-44) % [place] % (Auto) 17.0 H (2-6) % Eos % (Auto) 3.5 (2-4) % Baso % (Auto) 0.4 (0-1) % Sodium 131 L (140-148) mmol/L Potassium 4.0 (3.6-5.2) mmol/L Chloride 99 L (100-108) mmol/L Carbon Dioxide 26 (21-32) mmol/L Anion Gap 10.0 (5.0-14.0) mmol/L BUN 7 (7-18) mg/dL Creatinine 0.8 (0.6-1.0) mg/dL Est Cr Clr Drug Dosing 71.91 mL/min Estimated GFR (MDRD) > 60 (>60) Glucose 71 L (74-106) mg/dL Calcium 8.3 L (8.5-10.1) mg/dL Total Bilirubin 2.4 H (0.2-1.0) mg/dL AST 38 H (15-37) U/L ALT 33 (12-78) U/L Alkaline Phosphatase 126 H (46-116) U/L Total Protein 5.9 L (6.4-8.2) g/dL Albumin 1.9 L (3.4-5.0) g/dL Globulin 4.0 H (2.3-3.5) g/dL Albumin/Globulin Ratio 0.5 L (1.2-2.2) Abdirashid Results Last 24 Hours: Microbiology 02/26/21 03:15 Urine Culture - Preliminary Urine, Clean Catch Med Orders - Current: Current Medications Acetaminophen (Acetaminophen 325 Mg Tab) 650 mg PO Q4H PRN PRN Reason: Pain (Mild 1-3)/fever Albuterol (Albuterol 0.083% 2.5 Mg/3 Ml Neb Soln) 2.5 mg NEB Q4H PRN PRN Reason: Shortness Of Breath/wheezing Albuterol/Ipratropium (Albuterol/Ipratropium 3.0-0.5 Mg/3 Ml Neb Soln) 3 ml NEB QID PRN PRN Reason: Shortness Of Breath/wheezing Cholecalciferol (Cholecalciferol (Vitamin D3) 25 Mcg Tab) 12.5 mcg PO DAILY [facility] Last Admin: 02/27/21 08:15 Dose: Not Given Documented by: Citalopram Hydrobromide (Citalopram 20 Mg Tab) 20 mg PO DAILY [facility] Last Admin: 02/27/21 08:14 Dose: Not Given Documented by: Cyanocobalamin (Cyanocobalamin (Vitamin B12) 1,000 Mcg Tab) 1,000 mcg PO DAILY [facility] Last Admin: 02/27/21 08:15 Dose: Not Given Documented by: Dicyclomine HCl (Dicyclomine 10 Mg Cap) 10 mg PO TID [facility] Last Admin: 02/27/21 14:07 Dose: 10 mg Documented by: Furosemide (Furosemide 20 Mg Tab) 20 mg PO BIDDIURETIC [facility] Last Admin: 02/27/21 14:07 Dose: 20 mg Documented by: Gabapentin (Gabapentin 300 Mg Cap) 600 mg PO TID [facility] Last Admin: 02/27/21 14:07 Dose: 600 mg Documented by: Iron/Vitamin C (Ferrous Fumarate/Vitamin C 200-125 Mg Tab) 1 tab PO DAILY [facility] Last Admin: 02/27/21 08:15 Dose: Not Given Documented by: Lactulose (Lactulose Soln 10 Gm/15 Ml 15 Ml Ud Cup) 10 gm PO BID [facility] Last Admin: 02/27/21 08:15 Dose: Not Given Documented by: Magnesium Oxide (Magnesium Oxide 400 Mg Tab) 400 mg PO BID [facility] Last Admin: 02/27/21 08:15 Dose: Not Given Documented by: Miscellaneous Information (Patch Check) 1 ea TRDERM DAILY [facility] Last Admin: 02/27/21 14:06 Dose: Not Given Documented by: Oxycodone HCl (Oxycodone 5 Mg Tab) 5 mg PO Q4H PRN PRN Reason: Pain (moderate 4-6) Pantoprazole Sodium (Pantoprazole 40 Mg Tab.Cr) 40 mg PO DAILY [facility] Polyethylene Glycol (Polyethylene Glycol 3350 Powder 17 Gm Packet) 8.5 gm PO DAILY [facility] Last Admin: 02/27/21 08:15 Dose: Not Given Documented by: Scopolamine (Scopolamine 1.5 Mg Transdermal Patch) 1.5 mg TOP Q3D [facility] Last Admin: 02/26/21 04:21 Dose: 1.5 mg Documented by: Simethicone (Simethicone 125 Mg Tab.Chew) 125 mg PO Q6H PRN PRN Reason: Gas Spironolactone (Spironolactone 25 Mg Tab) 50 mg PO BID [facility] Last Admin: 02/27/21 08:14 Dose: Not Given Documented by: Sucralfate (Sucralfate 1 Gm Tab) 1 gm PO QIDACANDBED PRN PRN Reason: Heartburn Thiamine HCl (Thiamine 100 Mg Tab) 100 mg PO DAILY [facility] Last Admin: 02/27/21 08:15 Dose: Not Given Documented by: Trazodone HCl (Trazodone 50 Mg Tab) 50 mg PO BEDTIME [facility] Last Admin: 02/26/21 20:49 Dose: 50 mg Documented by: Discontinued Medications Acetaminophen (Acetaminophen 325 Mg Tab) 650 mg PO Q4H PRN PRN Reason: analgesia/fever Fentanyl (Fentanyl 100 Mcg/2 Ml Sdv) Confirm Administered Dose 100 mcg .ROUTE .STK-MED ONE Stop: 02/27/21 09:53 Ferrous Sulfate (Ferrous Sulfate 325 Mg Tab) 325 mg PO DAILY [facility] Furosemide (Furosemide 40 Mg/4 Ml Vial) 40 mg IVPUSH ONETIME ONE Stop: 02/26/21 01:15 Last Admin: 02/26/21 01:35 Dose: 40 mg Documented by: Glycopyrrolate (Glycopyrrolate 0.2 Mg/Ml 2 Ml Sdv) 0.4 mg IVPUSH ONETIME ONE Stop: 02/27/21 08:01 Last Admin: 02/27/21 13:28 Dose: Not Given Documented by: Sodium Chloride (Normal Saline) 1,000 mls @ 125 mls/hr IV ASDIRECTED [facility] Last Admin: 02/26/21 01:35 Dose: 125 mls/hr Documented by: Ceftriaxone Sodium 1 gm/ (Sodium Chloride) 50 mls @ 100 mls/hr IV Q24H [facility] Sodium Chloride (Normal Saline) 1,000 mls @ 125 mls/hr IV ASDIRECTED [facility] Last Admin: 02/26/21 10:47 Dose: 125 mls/hr Documented by: Ceftriaxone Sodium 1 gm/ (Sodium Chloride) 50 mls @ 100 mls/hr IV NOW ONE Stop: 02/26/21 04:29 Last Admin: 02/26/21 04:17 Dose: 100 mls/hr Documented by: Midazolam HCl (Midazolam 1 Mg/Ml 2 Ml Sdv) Confirm Administered Dose 2 mg .ROUTE .STK-MED ONE Stop: 02/27/21 09:53 Pantoprazole Sodium (Pantoprazole 40 Mg Vial) 40 mg IVPUSH ONETIME ONE Stop: 02/26/21 01:15 Last Admin: 02/26/21 01:55 Dose: 40 mg Documented by: Pantoprazole Sodium (Pantoprazole 40 Mg Vial) 40 mg IV ACBREAKFAST [facility] Last Admin: 02/26/21 08:25 Dose: 40 mg Documented by: Pantoprazole Sodium (Pantoprazole 40 Mg Vial) 40 mg IV Q12H [facility] Last Admin: 02/27/21 08:14 Dose: Not Given Documented by: Potassium Chloride (Potassium Chloride 20 Meq Tab.Er) 40 meq PO ONETIME ONE Stop: 02/26/21 08:31 Last Admin: 02/26/21 09:04 Dose: 40 meq Documented by: Potassium Chloride (Potassium Chloride 20 Meq Tab.Er) 40 meq PO ONETIME ONE Stop: 02/26/21 17:01 Last Admin: 02/26/21 17:01 Dose: 40 meq Documented by: Propofol (Propofol 200 Mg/20 Ml Sdv) Confirm Administered Dose 200 mg .ROUTE .STK-MED ONE Stop: 02/27/21 09:53 Propofol (Propofol 200 Mg/20 Ml Sdv) Confirm Administered Dose 200 mg .ROUTE .STK-MED ONE Stop: 02/27/21 10:34 Simethicone (Simethicone 125 Mg Tab.Chew) 125 mg PO Q4H [facility] Last Admin: 02/26/21 08:45 Dose: 125 mg Documented by: Sucralfate (Sucralfate 1 Gm Tab) 1 gm PO ASDIRECTED PRN PRN Reason: Heartburn - Exam Quality Assessment: DVT Prophylaxis General: Alert, Oriented, Cooperative, Mild Distress Lungs: Clear to Auscultation, Normal Respiratory Effort Cardiovascular: Regular Rate, Regular Rhythm, No Murmurs GI/Abdominal Exam: Soft, Non-Tender, No Organomegaly, No Distention Extremities: Non-Tender, Pedal Edema - Patient Data Lab Results Last 24 hrs: Laboratory Results - last 24 hr 02/26/21 02/27/21 02/27/21 Range/Units 17:00 06:08 06:08 WBC 2.8 L (4.5-11.0) K/uL RBC 2.28 L (3.30-5.50) M/uL Hgb 8.4 L 7.9 L (12.0-15.0) g/dL Hct 23.5 L (36.0-48.0) % MCV 103 H (80-98) fL MCH 35 H (27-31) pg MCHC 34 (32-36) % Plt Count 128 L (150-400) K/uL Neut % (Auto) 42.7 (36-66) % Lymph % (Auto) 36.4 (24-44) % [place] % (Auto) 17.0 H (2-6) % Eos % (Auto) 3.5 (2-4) % Baso % (Auto) 0.4 (0-1) % Sodium 131 L (140-148) mmol/L Potassium 4.0 (3.6-5.2) mmol/L Chloride 99 L (100-108) mmol/L Carbon Dioxide 26 (21-32) mmol/L Anion Gap 10.0 (5.0-14.0) mmol/L BUN 7 (7-18) mg/dL Creatinine 0.8 (0.6-1.0) mg/dL Est Cr Clr Drug Dosing 71.91 mL/min Estimated GFR (MDRD) > 60 (>60) Glucose 71 L (74-106) mg/dL Calcium 8.3 L (8.5-10.1) mg/dL Total Bilirubin 2.4 H (0.2-1.0) mg/dL AST 38 H (15-37) U/L ALT 33 (12-78) U/L Alkaline Phosphatase 126 H (46-116) U/L Total Protein 5.9 L (6.4-8.2) g/dL Albumin 1.9 L (3.4-5.0) g/dL Globulin 4.0 H (2.3-3.5) g/dL Albumin/Globulin Ratio 0.5 L (1.2-2.2) Result Diagrams: 02/27/21 06:08 02/27/21 06:08 Abdirashid Results Last 24 hrs: Microbiology 02/26/21 03:15 Urine Culture - Preliminary Urine, Clean Catch Sepsis Event Note - Evaluation Sepsis Screening Result: No Definite Risk - Focused Exam Vital Signs: Vital Signs Temp Pulse Resp BP Pulse Ox 02/27/21 13:56 84 12 97/53 L 96 02/27/21 13:00 86 12 96/46 L 96 02/27/21 12:30 96.8 F L 89 12 94/45 L 95 02/27/21 12:09 86 12 91/42 L 95 02/27/21 11:57 96.8 F L 85 12 86/44 L 98 02/27/21 11:40 96.8 F L 89 12 99/51 L 95 02/27/21 11:23 97 F 93 12 104/61 95 12/23/21 11:10 97.0 F 95 16 109/71 95 02/27/21 11:05 96 16 108/70 95 02/27/21 11:00 98 16 100/66 95 02/27/21 10:55 96.8 F L 99 16 96/55 L 99 02/27/21 10:50 101 H 16 91/56 L 98 02/27/21 10:45 104 H 16 92/51 L 98 02/27/21 10:40 97.2 F 105 H 16 93/56 L 99 02/27/21 08:00 97.1 F 71 16 108/68 100 02/27/21 04:00 97.1 F 95 14 111/71 97 - Problem List Review Problem List Initiated/Reviewed/Updated: Yes - My Orders Last 24 Hours: My Active Orders 02/26/21 13:52 Consult to Physician [CONS] Routine 02/26/21 13:54 Convert IV to Saline Lock [OM.PC] Routine 02/27/21 09:00 Remove Patch 1 ea TRDERM DAILY 02/28/21 05:11 HGB [HEMOGLOBIN] [HEME] AM 02/28/21 09:00 Pantoprazole [ProTONIX] 40 mg PO DAILY - Plan Plan:: ASSESSMENT AND PLAN Anemia-she does have baseline anemia of chronic illness, hemoglobin mildly lower than what it was during her last admission 1 month ago. Recent history of melenic appearing stools that were found to be heme positive in the emergency department. No evidence of active bleeding noted since admission, hemoglobin read s remained stable even with hydration. EGD obtained today shows evidence of a bezoar, no other abnormalities -Antibezoar diet -Saline lock IV -Protonix 40 mg p.o. daily -EGD in a.m. with Dr. Gonsalez Cirrhosis of liver with jaundice-appears to be fairly stable since last admission. Question of possible increase in peripheral edema as well as abdominal girth. Weight appears to be fairly stable since her admission 1 month ago. She is somewhat lethargic today but states that she did not get much sleep during the night. Reports that she has been taking all of her medication including lactulose. Ammonia level was only slightly elevated. -Continue outpatient medications Abdominal pain-resolved Maintenance issues - - DVT prophylaxis - scd - GI prophylaxis -PPI - Nutrition -regular - Buchanan catheter -not indicated CODE STATUS -FULL Admission justification -this patient will be admitted for inpatient services and is medically appropriate meeting medical necessity for inpatient admission as outlined in my documentation. I reasonably expect the patient will require inpatient services that span a period time over 2 midnights. I reasonably expect this patient to be discharged or transferred within 96 hours after admission to the [facility]. Disposition -I would anticipate discharge back to the care of [facility] Primary care physician - Dr. James, [place], [place]. Hospital - Dr. Dione Sparks
[2021-02-27] MEDS ORDERED: fentaNYL 25 MCG/HR Transdermal Patch TRDERM SCH (20:00)
[2021-02-27] MEDS: traZODone 50 MG Tab PO SCH (20:31)
[2021-02-28] MEDS ORDERED: Pantoprazole 40 MG Tab.CR PO SCH (07:30)
[2021-02-28 07:38] VITALS: BP 132/86; PULSE 111
[2021-02-28] MEDS: Furosemide 20 MG Tab PO SCH (07:39)
[2021-02-28] MEDS ORDERED: Check Patch TOP SCH (09:00)
[2021-02-28] MEDS ORDERED: Cephalexin 250 MG Cap PO SCH (09:00)
[2021-02-28] MEDS: Lactulose Soln 10 GM/15 ML 15 ML UD Cup PO SCH (09:13)
[2021-02-28] MEDS: Spironolactone 25 MG Tab PO SCH (09:13)
[2021-02-28] MEDS: Citalopram 20 MG Tab PO SCH (09:13)
[2021-02-28] MEDS: Thiamine 100 MG Tab PO SCH (09:13)
[2021-02-28] MEDS: Dicyclomine 10 MG Cap PO SCH (09:13)
[2021-02-28] MEDS: Ferrous Fumarate/Vitamin C 200-125 MG Tab PO SCH (09:13)
[2021-02-28] MEDS: Gabapentin 300 MG Cap PO SCH (09:14)
[2021-02-28] MEDS: Magnesium Oxide 400 MG Tab PO SCH (09:14)
[2021-02-28] MEDS: Cyanocobalamin (Vitamin B12) 1,000 MCG Tab PO SCH (09:14)
[2021-02-28] MEDS: Cholecalciferol (Vitamin D3) 25 MCG Tab PO SCH (09:14)
[2021-02-28] MEDS: Polyethylene Glycol 3350 Powder 17 GM Packet PO SCH (09:15)
[2021-02-28] MEDS: CHECK TRDERM SCH (09:16)
--- NOTE | 2021-02-28 10:24 | PCM.DCSUM1 ---
Discharge Summary - Hospital Course Brief History: 45-year-old female with cirrhosis secondary to longstanding alcohol use complicated by ascites who presented with weakness, abdominal pain and nausea. She was admitted for management of possible gastrointestinal bleed with acute on chronic anemia. Diagnosis: Stroke: No - Discharge Data Discharge Date: 02/28/21 Discharge Disposition: Home, Self-Care 01 Condition: Good - Referral to Home Health Primary Care Physician: Rick James MD - Discharge Diagnosis/Problem(s) (1) Acute cystitis without hematuria SNOMED Code(s): 78313419 ICD Code: N30.00 - ACUTE CYSTITIS WITHOUT HEMATURIA Status: Acute (2) GI bleed SNOMED Code(s): 52475840 ICD Code: K92.2 - GASTROINTESTINAL HEMORRHAGE, UNSPECIFIED Status: [place] pected Qualifiers: GI bleed type/associated pathology: melena Qualified Code(s): K92.1 - Melena (3) Anemia due to chronic blood loss SNOMED Code(s): 785534942 ICD Code: D50.0 - IRON DEFICIENCY ANEMIA SECONDARY TO BLOOD LOSS (CHRONIC) Status: Acute Priority: High (4) Alcoholic cirrhosis of liver with ascites SNOMED Code(s): 600431840, 430742802 ICD Code: K70.31 - ALCOHOLIC CIRRHOSIS OF LIVER WITH ASCITES Status: Chronic Priority: High - Patient Summary/Data Consults: Consultations 02/26/21 13:52 Consult to Physician [CONS] Routine Consulting Provider: Errol Gonsalez Courtesy Call Completed to Consulting Physician: Yes Reason for Consult: Recent history of melenic stool, EGD in a.m. Hospital Course: Ewelina presented to the emergency room with abdominal pain, nausea, mild confusion and increased lower extremity edema. Work-up in the emergency room fortunately was fairly unremarkable. Urinalysis moderately suggestive of infection but not definite. Her hemoglobin was noted to be about 1 g lower than it had been at 8. There was some concern for gastrointestinal bleeding so she was admitted to the hospital for further management. Over the next couple of days she did make some improvements. Her abdominal pain has essentially resolved. She does have occasional cramping but very minimal. Volume status and vital signs have all been stable. Her hemoglobin has been stable and there is been no evidence for gastrointestinal bleeding. She did have an EGD which did not show any significant findings other than a bezoar. Her urine culture did return with a large quantity of E. coli. I believe this may have been the culprit for her difficulties. We did start her on oral antibiotics prior to hospital discharge. She is feeling better though not back to normal yet. I think the UTI could have been the culprit for her abdominal pain and mild confusion. Since her hemoglobin is stable I do not think we need any additional work-up for her low hemoglobin. I encouraged her to increase her diuretics to double the usual dose for the next 2 or 3 days and hopefully this will help improve her volume status. She will have early follow-up next week. - Patient Instructions Diet: Low Sodium Diet, Other: Anti-bezoar diet per written info Fluid Restriction: 2000 mL Activity: As Tolerated Showering/Bathing: May Shower Notify Provider of: Fever, Increased Pain Other/Special Instructions: 1. You were in the hospital for management of abdominal pain and weakness as well as work-up of a possible gastrointestinal bleed. Your condition has been improving with therapies provided here in the hospital. Your hemoglobin has been stable and there is no evidence for ongoing bleeding. Your urine culture did grow out a large quantity of E. coli. I suspect the abdominal pain, weakness and some confusion was related to the infection. I do recommend additional antibiotic therapy after hospital discharge. Please take cephalexin (Keflex) 500 mg twice daily for a total of 9 doses. Your first dose outside of the hospital will be due tonight around 9 PM. 2. Continue your usual home medications as previously prescribed. 3. I would encourage you to take twice the usual dose of diuretics for the next 2 to 4 days or until your edema improves and your weight gets closer to baseline. You may then return back to your usual dosing. 4. Follow up with your primary care provider if symptoms do not continue to get better or if they get worse. - Discharge Plan *PRESCRIPTION DRUG MONITORING PROGRAM REVIEWED*: Not Applicable *COPY OF PRESCRIPTION DRUG MONITORING REPORT IN PATIENT FARHAT: Not Applicable Prescriptions/Med Rec: cephALEXin [Cephalexin] 500 mg PO BID #9 capsule Home Medications: Home Meds Multivitamin [Multi-Vitamin Daily] 1 tab PO DAILY 12/02/15 [History] Gabapentin [Neurontin] 600 mg PO TID 07/13/18 [History] Albuterol Sulfate [Proair Respiclick] 1 - 2 puff IH Q4HR PRN 08/10/18 [History] Cyanocobalamin (Vitamin B-12) [Vitamin B-12] 1,000 mcg SL DAILY 08/10/18 [History] Magnesium 400 mg PO BID 11/23/18 [History] Citalopram [Citalopram HBr] 20 mg PO DAILY #30 tablet 04/14/19 [Rx] Lidocaine/Prilocaine [EMLA Crm] 1 applic TP ASDIRECTED PRN 10/30/20 [History] Ondansetron [Zofran ODT] 4 mg PO Q6H PRN 10/30/20 [History] SUMAtriptan succinate [Imitrex] 100 mg PO ASDIRECTED PRN 10/30/20 [History] traZODone 50 mg PO BEDTIME 10/30/20 [History] Dicyclomine [Bentyl] 10 mg PO TID 11/19/20 [History] Furosemide [Lasix] 20 mg PO BID #0 12/04/20 [Rx] Pantoprazole [ProTONIX] 40 mg PO ACBREAKFAST #30 tab.cr 12/04/20 [Rx] Spironolactone [Aldactone] 50 mg PO BID #0 12/04/20 [Rx] Cholecalciferol (Vitamin D3) [Vitamin D] 400 unit PO DAILY 01/26/21 [History] Ergocalciferol (Vitamin D2) [Vitamin D2] 1.25 mg PO ASDIRECTED 01/26/21 [History] Ferrous Fumarate/Vitamin C [Vitron-C] 1 tab PO DAILY 01/26/21 [History] Ferrous Sulfate 325 mg PO DAILY 01/26/21 [History] Scopolamine [Transderm-Scop] 1 patch TD Q3D 01/26/21 [History] Simethicone 125 mg PO Q4H 01/26/21 [History] Thiamine [Vitamin B-1] 100 mg PO DAILY 01/26/21 [History] Vitamin A Palmitate [Vitamin A] 50,000 unit PO DAILY 01/26/21 [History] Zinc 50 mg PO DAILY 01/26/21 [History] polyethylene glycoL 3350 [MiraLAX] 8 gm PO DAILY 01/26/21 [History] Lactulose [Chronulac] 10 gm PO BID #1000 ml 01/29/21 [Rx] metroNIDAZOLE 250 mg PO QID #20 tablet 01/29/21 [Rx] Sucralfate 1 dose PO ASDIRECTED 02/14/21 [History] fentaNYL [Duragesic] 1 patch TOP ASDIRECTED 02/26/21 [History] cephALEXin [Cephalexin] 500 mg PO BID #9 capsule 02/28/21 [Rx] Oxygen Therapy Mode: Room Air Patient Handouts: Urinary Tract Infection, Adult, Cephalexin Tablets or Capsules Referrals: Rick James MD [Primary Care Provider] - 03/06/21 1:30 pm (Follow up appointment on March [address] James at 1:30pm. Please arrive 15 minutes early to register. ) - Discharge Summary/Plan Comment DC Time >30 min.: No Total # of Minutes for Discharge Time: 25 - Patient Data Vitals - Most Recent: Last Vital Signs Temp 36.4 C 02/28/21 07:37 Pulse 111 H 02/28/21 07:37 Resp 18 02/28/21 07:37 BP 132/86 02/28/21 07:37 Pulse Ox 100 02/28/21 07:37 Weight - Most Recent: 76.204 kg I&O - Last 24 hours: Intake & Output 02/27/21 02/28/21 02/28/21 22:59 06:59 14:59 Intake Total 240 1999 550 Output Total 600 Balance -360 2000 550 Lab Results - Last 24 hrs: Laboratory Results - last 24 hr 02/28/21 Range/Units 04:43 Hgb 8.1 L (12.0-15.0) g/dL [facility] Results - Last 24 hrs: Microbiology 02/26/21 03:15 Urine Culture - Final Urine, Clean Catch Escherichia Coli Med Orders - Current: Current Medications Acetaminophen (Acetaminophen 325 Mg Tab) 650 mg PO Q4H PRN PRN Reason: Pain (Mild 1-3)/fever Albuterol (Albuterol 0.083% 2.5 Mg/3 Ml Neb Soln) 2.5 mg NEB Q4H PRN PRN Reason: Shortness Of Breath/wheezing Albuterol/Ipratropium (Albuterol/Ipratropium 3.0-0.5 Mg/3 Ml Neb Soln) 3 ml NEB QID PRN PRN Reason: Shortness Of Breath/wheezing Cephalexin (Cephalexin 250 Mg Cap) 500 mg PO BID [facility] Last Admin: 12/24/21 09:14 Dose: 500 mg Documented by: Cholecalciferol (Cholecalciferol (Vitamin D3) 25 Mcg Tab) 12.5 mcg PO DAILY [facility] Last Admin: 02/28/21 09:14 Dose: 12.5 mcg Documented by: Citalopram Hydrobromide (Citalopram 20 Mg Tab) 20 mg PO DAILY [facility] Last Admin: 02/28/21 09:13 Dose: 20 mg Documented by: Cyanocobalamin (Cyanocobalamin (Vitamin B12) 1,000 Mcg Tab) 1,000 mcg PO DAILY [facility] Last Admin: 02/28/21 09:14 Dose: 1,000 mcg Documented by: Dicyclomine HCl (Dicyclomine 10 Mg Cap) 10 mg PO TID [facility] Last Admin: 02/28/21 09:13 Dose: 10 mg Documented by: Fentanyl (Fentanyl 25 Mcg/Hr Transdermal Patch) 25 mcg TRDERM Q72H [facility] Last Admin: 02/27/21 20:29 Dose: 25 mcg Documented by: Furosemide (Furosemide 20 Mg Tab) 20 mg PO BIDDIURETIC [facility] Last Admin: 02/28/21 07:39 Dose: 20 mg Documented by: Gabapentin (Gabapentin 300 Mg Cap) 600 mg PO TID [facility] Last Admin: 02/28/21 09:14 Dose: 600 mg Documented by: Iron/Vitamin C (Ferrous Fumarate/Vitamin C 200-125 Mg Tab) 1 tab PO DAILY [facility] Last Admin: 02/28/21 09:13 Dose: 1 tab Documented by: Lactulose (Lactulose Soln 10 Gm/15 Ml 15 Ml Ud Cup) 10 gm PO BID [facility] Last Admin: 02/28/21 09:13 Dose: 10 gm Documented by: Magnesium Oxide (Magnesium Oxide 400 Mg Tab) 400 mg PO BID [facility] Last Admin: 02/28/21 09:14 Dose: 400 mg Documented by: Miscellaneous Information (Patch Check) 1 ea TRDERM DAILY [facility] Last Admin: 02/28/21 09:16 Dose: Not Given Documented by: Check Patch 1 each TOP DAILY [facility] Last Admin: 02/28/21 09:16 Dose: Not Given Documented by: Oxycodone HCl (Oxycodone 5 Mg Tab) 5 mg PO Q4H PRN PRN Reason: Pain (moderate 4-6) Pantoprazole Sodium (Pantoprazole 40 Mg Tab.Cr) 40 mg PO ACBREAKFAST [facility] Last Admin: 02/28/21 07:39 Dose: 40 mg Documented by: Polyethylene Glycol (Polyethylene Glycol 3350 Powder 17 Gm Packet) 8.5 gm PO DAILY [facility] Last Admin: 02/28/21 09:15 Dose: Not Given Documented by: Scopolamine (Scopolamine 1.5 Mg Transdermal Patch) 1.5 mg TOP Q3D [facility] Last Admin: 02/26/21 04:21 Dose: 1.5 mg Documented by: Simethicone (Simethicone 125 Mg Tab.Chew) 125 mg PO Q6H PRN PRN Reason: Gas Spironolactone (Spironolactone 25 Mg Tab) 50 mg PO BID [facility] Last Admin: 02/28/21 09:13 Dose: 50 mg Documented by: Sucralfate (Sucralfate 1 Gm Tab) 1 gm PO QIDACANDBED PRN PRN Reason: Heartburn Thiamine HCl (Thiamine 100 Mg Tab) 100 mg PO DAILY [facility] Last Admin: 02/28/21 09:13 Dose: 100 mg Documented by: Trazodone HCl (Trazodone 50 Mg Tab) 50 mg PO BEDTIME [facility] Last Admin: 02/27/21 20:31 Dose: 50 mg Documented by: Discontinued Medications Acetaminophen (Acetaminophen 325 Mg Tab) 650 mg PO Q4H PRN PRN Reason: analgesia/fever Fentanyl (Fentanyl 100 Mcg/2 Ml Sdv) Confirm Administered Dose 100 mcg .ROUTE .STK-MED ONE Stop: 02/27/21 09:53 Ferrous Sulfate (Ferrous Sulfate 325 Mg Tab) 325 mg PO DAILY [facility] Furosemide (Furosemide 40 Mg/4 Ml Vial) 40 mg IVPUSH ONETIME ONE Stop: 02/26/21 01:15 Last Admin: 02/26/21 01:35 Dose: 40 mg Documented by: Glycopyrrolate (Glycopyrrolate 0.2 Mg/Ml 2 Ml Sdv) 0.4 mg IVPUSH ONETIME ONE Stop: 02/27/21 08:01 Last Admin: 02/27/21 13:28 Dose: Not Given Documented by: Sodium Chloride (Normal Saline) 1,000 mls @ 125 mls/hr IV ASDIRECTED [facility] Last Admin: 02/26/21 01:35 Dose: 125 mls/hr Documented by: Ceftriaxone Sodium 1 gm/ (Sodium Chloride) 50 mls @ 100 mls/hr IV Q24H [facility] Sodium Chloride (Normal Saline) 1,000 mls @ 125 mls/hr IV ASDIRECTED [facility] Last Admin: 02/26/21 10:47 Dose: 125 mls/hr Documented by: Ceftriaxone Sodium 1 gm/ (Sodium Chloride) 50 mls @ 100 mls/hr IV NOW ONE Stop: 02/26/21 04:29 Last Admin: 02/26/21 04:17 Dose: 100 mls/hr Documented by: Midazolam HCl (Midazolam 1 Mg/Ml 2 Ml Sdv) Confirm Administered Dose 2 mg .ROUTE .STK-MED ONE Stop: 02/27/21 09:53 Pantoprazole Sodium (Pantoprazole 40 Mg Vial) 40 mg IVPUSH ONETIME ONE Stop: 02/26/21 01:15 Last Admin: 02/26/21 01:55 Dose: 40 mg Documented by: Pantoprazole Sodium (Pantoprazole 40 Mg Vial) 40 mg IV ACBREAKFAST [facility] Last Admin: 02/26/21 08:25 Dose: 40 mg Documented by: Pantoprazole Sodium (Pantoprazole 40 Mg Vial) 40 mg IV Q12H [facility] Last Admin: 02/27/21 08:14 Dose: Not Given Documented by: Potassium Chloride (Potassium Chloride 20 Meq Tab.Er) 40 meq PO ONETIME ONE Stop: 02/26/21 08:31 Last Admin: 02/26/21 09:04 Dose: 40 meq Documented by: Potassium Chloride (Potassium Chloride 20 Meq Tab.Er) 40 meq PO ONETIME ONE Stop: 02/26/21 17:01 Last Admin: 02/26/21 17:01 Dose: 40 meq Documented by: Propofol (Propofol 200 Mg/20 Ml Sdv) Confirm Administered Dose 200 mg .ROUTE .STK-MED ONE Stop: 02/27/21 09:53 Propofol (Propofol 200 Mg/20 Ml Sdv) Confirm Administered Dose 200 mg .ROUTE .STK-MED ONE Stop: 02/27/21 10:34 Simethicone (Simethicone 125 Mg Tab.Chew) 125 mg PO Q4H [facility] Last Admin: 02/26/21 08:45 Dose: 125 mg Documented by: Sucralfate (Sucralfate 1 Gm Tab) 1 gm PO ASDIRECTED PRN PRN Reason: Heartburn
--- NOTE | 2021-03-03 11:18 | PN ---
DATE OF SERVICE: 02/28/2021 The patient had a stable hemoglobin overnight. On upper endoscopy yesterday, she was noted to have retained solid food in the dependent portion of the blind end of the small bowel [place] limb. She should likely be on a low residue diet for remainder of her life to avoid problems in that area. That area was likely the bleeding site as minimal amount of manipulation did result in some oozing of blood. Errol Gonsalez MD /[id number]
== END 2021-02-28 11:40 | disposition home or self-care (01) | DRG 463 ==
LOC: JP.ED 23:09 → JP.ICU 02-26 02:09
PROVIDERS: ADMIT Hospitalist; ATTEND Internal Medicine
PROC: 0DJ08ZZ Inspection of Upper Intestinal Tract, Via Natural or Artificial Opening Endoscopic (ICD-10-PCS; principal; 2021-02-27)
DX: N30.00 Acute cystitis without hematuria (principal); D50.0 Iron deficiency anemia secondary to blood loss (chronic); K92.1 Melena; K70.31 Alcoholic cirrhosis of liver with ascites; B96.20 Unspecified Escherichia coli [E. coli] as the cause of diseases classified elsewhere; I10 Essential (primary) hypertension; J45.909 Unspecified asthma, uncomplicated; F41.9 Anxiety disorder, unspecified; F32.A Depression, unspecified; E55.9 Vitamin D deficiency, unspecified; E53.8 Deficiency of other specified B group vitamins; K21.9 Gastro-esophageal reflux disease without esophagitis; F17.210 Nicotine dependence, cigarettes, uncomplicated; Z20.822 Contact with and (suspected) exposure to COVID-19; Z88.1 Allergy status to other antibiotic agents; Z88.8 Allergy status to other drugs, medicaments and biological substances; Z79.899 Other long term (current) drug therapy; Z90.49 Acquired absence of other specified parts of digestive tract; Z90.710 Acquired absence of both cervix and uterus; Z98.84 Bariatric surgery status
CPT/HCPCS: 0241U; 36415; 80048; 80053; 81001; 82140; 82272; 85018; 85025; 85027; 85610; 87086; 87088; 87186; 96374; 96375; 99285-25; A9270-GY; C9113; J0696; J1940; J2250; J2704; J3010; J7030

== ENCOUNTER 2021-03-04 02:59 | Inpatient (IN) | payer BC ==
[2021-03-04] MEDS ORDERED: Furosemide 40 MG/4 ML VIAL IVPUSH ONE ×4 (03:29→15:00)
--- NOTE | 2021-03-04 03:44 | EDM.PDOC ---
ED HPI GENERAL MEDICAL PROBLEM - General Chief Complaint: Lower Extremity Injury/Pain Stated Complaint: SWOLLEN LEGS Time Seen by Provider: 03/04/21 03:15 Source of Information: Reports: Patient, Family History Limitations: Reports: No Limitations - History of Present Illness INITIAL COMMENTS - FREE TEXT/NARRATIVE: 45-year-old female with known end-stage cirrhosis, was just discharged from the hospital 4 days ago with mild confusion, anemia, possible GI bleed and was eventually diagnosed with a UTI. An EGD did not show any source of bleeding, urine culture did grow E. coli and she was placed on cephalexin as an outpatient. She was also to double her diuretic which she says she has done but despite this she has gained almost 30 lbs, she has tense weeping edema of the lower extremities, increased abdominal girth with discomfort and significant fluid retention. She is not short of breath but it's hard to take a deep breath. The abdominal pain that had markedly improved in the hospital has returned. She was brought in by her daughter. The pain in her legs has progressed to the point where she can't walk, she can't put on her shoes. Onset: Gradual Duration: Day(s): (Marked increase in edema over the past 4 days) Location: Reports: Abdomen (Pain in her abdomen is worsened, pain in her legs is significantly worsened) Associated Symptoms: Reports: Malaise, Weakness. Denies: Chest Pain, Cough, Fever/Chills, Headaches Bilateral Leg Pain Score (Numeric/FACES): 10 - Related Data Allergies Allergy/AdvReac Type Severity Reaction Status Date / Time doxycycline Allergy Intermediate Rash Verified 03/04/21 03:07 erythromycin base Allergy Intermediate Rash Verified 03/04/21 03:07 procaine [From Novocain] Allergy Intermediate Rash Verified 03/04/21 03:07 Home Meds: Home Meds Multivitamin [Multi-Vitamin Daily] 1 tab PO DAILY 12/02/15 [History] Gabapentin [Neurontin] 600 mg PO TID 07/13/18 [History] Albuterol Sulfate [Proair Respiclick] 1 - 2 puff IH Q4HR PRN 08/10/18 [History] Cyanocobalamin (Vitamin B-12) [Vitamin B-12] 1,000 mcg SL DAILY 08/10/18 [History] Magnesium 400 mg PO BID 11/23/18 [History] Citalopram [Citalopram HBr] 20 mg PO DAILY #30 tablet 04/14/19 [Rx] Lidocaine/Prilocaine [EMLA Crm] 1 applic TP ASDIRECTED PRN 10/30/20 [History] Ondansetron [Zofran ODT] 4 mg PO Q6H PRN 10/30/20 [History] SUMAtriptan succinate [Imitrex] 100 mg PO ASDIRECTED PRN 10/30/20 [History] traZODone 50 mg PO BEDTIME 10/30/20 [History] Dicyclomine [Bentyl] 10 mg PO TID 11/19/20 [History] Furosemide [Lasix] 20 mg PO BID #0 12/04/20 [Rx] Pantoprazole [ProTONIX] 40 mg PO ACBREAKFAST #30 tab.cr 12/04/20 [Rx] Spironolactone [Aldactone] 50 mg PO BID #0 12/04/20 [Rx] Cholecalciferol (Vitamin D3) [Vitamin D] 400 unit PO DAILY 01/26/21 [History] Ergocalciferol (Vitamin D2) [Vitamin D2] 1.25 mg PO ASDIRECTED 01/26/21 [History] Ferrous Fumarate/Vitamin C [Vitron-C] 1 tab PO DAILY 01/26/21 [History] Ferrous Sulfate 325 mg PO DAILY 01/26/21 [History] Scopolamine [Transderm-Scop] 1 patch TD Q3D 01/26/21 [History] Simethicone 125 mg PO Q4H PRN 01/26/21 [History] Thiamine [Vitamin B-1] 100 mg PO DAILY 01/26/21 [History] Vitamin A Palmitate [Vitamin A] 50,000 unit PO DAILY 01/26/21 [History] Zinc 50 mg PO DAILY 01/26/21 [History] polyethylene glycoL 3350 [MiraLAX] 8 gm PO DAILY 01/26/21 [History] Lactulose [Chronulac] 10 gm PO BID #1000 ml 01/29/21 [Rx] metroNIDAZOLE 250 mg PO QID #20 tablet 01/29/21 [Rx] Sucralfate 1 dose PO ASDIRECTED 02/14/21 [History] fentaNYL [Duragesic] 25 mcg TOP Q72H 02/26/21 [History] cephALEXin [Cephalexin] 500 mg PO BID #9 capsule 02/28/21 [Rx] Past Medical History HEENT History: Reports: None Cardiovascular History: Reports: Hypertension Respiratory History: Reports: Asthma Gastrointestinal History: Reports: Cirrhosis, GERD, Other (See Below) Other Gastrointestinal History: RNY 2002 Genitourinary History: Reports: Other (See Below) Other Genitourinary History: 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 fistula [employer] History: Reports: Dysfunctional Uterine Bleeding, Musculoskeletal History: Reports: Fracture Neurological History: Reports: Migraines Psychiatric History: Reports: Addiction, Anxiety, Depression Endocrine/Metabolic History: Reports: Hypothyroidism, Vitamin D Deficiency Hematologic History: Reports: Anemia, B12 Deficiency, Blood Transfusion(s), Iron Deficiency, Other (See Below) Other Hematologic History: vitamin D def. liver failure Dermatologic History: Reports: Other (See Below) Other Dermatologic History: sores on face, neck, hands and back - Infectious Disease History Infectious Disease History: Reports: Chicken Pox, Measles - Past Surgical History HEENT Surgical History: Reports: Oral Surgery Cardiovascular Surgical History: Reports: None Respiratory Surgical History: Reports: None GI Surgical History: Reports: Bariatric Procedure, Cholecystectomy, Colonoscopy, EGD Female Surgical History: Reports: Section, Hysterectomy, Tubal Ligation Endocrine Surgical History: Reports: None Musculoskeletal Surgical History: Reports: Other (See Below) Other Musculoskeletal Surgeries/Procedures:: Ankle plate/pin - hdwe removed Social & Family History - Family History Family Medical History: No Pertinent Family History Cardiac: Reports: [place] - Caffeine Use Caffeine Use: Reports: Soda Caffeine Use Comment: occasional soda - Living Situation & Occupation Living situation: Reports: Single Occupation: Disabled (has her own home- Daughter, her Daughter's Boyfriends and thier 3 children live with her. They assist her with medications .) Review of Systems - Review of Systems Review Of Systems: See Below Constitutional: Reports: Weakness. Denies: Fever Eyes: Reports: Other (Scleral jaundice is present) Respiratory: Reports: Other (Difficulty taking a deep breath but denies shortness of breath) Cardiovascular: Denies: Chest Pain, Irregular Heart Rate GI/Abdominal: Reports: Abdominal Pain Genitourinary: Reports: No Symptoms Skin: Reports: Jaundice, Bruising Neurological: Reports: Weakness ED EXAM, GENERAL - Physical Exam Exam: See Below Exam Limited By: No Limitations General Appearance: Alert, No Apparent Distress, Other (Looks tired but fairly comfortable, no distress) Eye Exam: Bilateral Eye: EOMI, Periorbital Changes, Other (Conjunctiva pale, sclerae jaundiced) Head: Atraumatic Neck: Supple Respiratory/Chest: Lungs Clear (Mild decreased breath sounds in the bases otherwise clear) Cardiovascular: Regular Rate, Rhythm, Tachycardia (Mild tachycardia) GI/Abdominal: Abnormal Bowel Sounds (Bowel sounds are hypoactive, she is tender mostly in the left lower quadrant and epigastric area, no guarding or significant rebound tenderness. Mild distention is present) Extremities: Other (Severe lower extremity edema of the entire leg bilaterally is present, there is erythema and weeping of serosanguineous fluid in the feet.) Neurological: Alert, Oriented Psychiatric: Flat Affect Skin Exam: Warm, Dry, Jaundice, Other (Several white scattered bruises on the extremities, venous stasis changes of the lower extremities) Course - Vital Signs Last Recorded V/S: Last Vital Signs Temp 96.5 F L 03/04/21 14:25 Pulse 94 03/04/21 14:25 Resp 18 03/04/21 14:25 BP 110/65 03/04/21 14:25 Pulse Ox 93 L 03/04/21 14:25 - Orders/Labs/Meds Orders: Active Orders 24 hr Category Date Time Status Isolation [COMM] Stat Oth 03/04/21 03:55 Ordered Medication Orders Citalopram Hydrobromide (Citalopram 20 Mg Tab) 20 mg PO DAILY [facility] Last Admin: 03/04/21 09:57 Dose: 20 mg Documented by: ANGEL Cyanocobalamin (Cyanocobalamin (Vitamin B12) 1,000 Mcg Tab) 1,000 mcg SL DAILY [facility] Dicyclomine HCl (Dicyclomine 10 Mg Cap) 10 mg PO TID [facility] Last Admin: 03/04/21 13:51 Dose: 10 mg Documented by: ANGEL Fentanyl (Fentanyl 25 Mcg/Hr Transdermal Patch) 25 mcg TOP Q72H [facility] Gabapentin (Gabapentin 300 Mg Cap) 600 mg PO TID [facility] Last Admin: 03/04/21 13:51 Dose: 600 mg Documented by: ANGEL Promethazine HCl 6.25 mg/ (Sodium Chloride) 50.25 mls @ 200 mls/hr IV Q6H PRN PRN Reason: Nausea/Vomiting Albumin Human (Albumin 25%) 25 gm in 100 mls @ 25 mls/hr IV Q6H BILLY Stop: 03/05/21 10:29 Last Admin: 03/04/21 17:33 Dose: 25 mls/hr Documented by: Admin: 03/04/21 13:51 Dose: 25 mls/hr Documented by: ANGEL Influenza Virus Vaccine (Flu Vacc [id number](6mos Up)/Pf 60 Mcg/0.5 Ml Syringe) 60 mcg IM .ONCE ONE Stop: 03/05/21 10:01 Lactulose (Lactulose Soln 10 Gm/15 Ml 15 Ml Ud Cup) 10 gm PO BID BILLY Morphine Sulfate (Morphine 2 Mg/Ml Syringe) 2 mg IVPUSH Q2H PRN PRN Reason: Pain (severe 7-10) Verify Fentanyl (Patch) 0 each TOP BID [facility] Last Admin: 03/04/21 12:38 Dose: Not Given Documented by: ANGEL Oxycodone HCl (Oxycodone 5 Mg Tab) 5 mg PO Q4H PRN PRN Reason: Pain (moderate 4-6) Pantoprazole Sodium (Pantoprazole 40 Mg Tab.Cr) 40 mg PO ACBREAKFAST [facility] Promethazine HCl (Promethazine 25 Mg Tab) 25 mg PO Q6H PRN PRN Reason: Nausea able to take PO Simethicone (Simethicone 125 Mg Tab.Chew) 125 mg PO Q4H PRN PRN Reason: Abdominal Pain Thiamine HCl (Thiamine 100 Mg Tab) 100 mg PO DAILY [facility] Trazodone HCl (Trazodone 50 Mg Tab) 50 mg PO BEDTIME [facility] Zinc Sulfate (Zinc Sulfate 220 Mg Cap) 220 mg PO DAILY [facility] Last Admin: 03/04/21 09:58 Dose: 220 mg Documented by: ANGEL Labs: Laboratory Tests 03/04/21 03/04/21 03/04/21 Range/Units 03:35 03:41 03:41 WBC 6.5 (4.5-11.0) K/uL RBC 2.52 L (3.30-5.50) M/uL Hgb 9.2 L (12.0-15.0) g/dL Hct 26.5 L (36.0-48.0) % MCV 105 H (80-98) fL MCH 37 H (27-31) pg MCHC 35 (32-36) % Plt Count 128 L (150-400) K/uL Neut % (Auto) 69.0 H (36-66) % Lymph % (Auto) 18.6 L (24-44) % Blair % (Auto) 11.4 H (2-6) % Eos % (Auto) 0.8 L (2-4) % Baso % (Auto) 0.2 (0-1) % Sodium 122 L (140-148) mmol/L Potassium 4.1 (3.6-5.2) mmol/L Chloride 90 L (100-108) mmol/L Carbon Dioxide 22 (21-32) mmol/L Anion Gap 14.1 H (5.0-14.0) mmol/L BUN 10 (7-18) mg/dL Creatinine 0.9 (0.6-1.0) mg/dL Est Cr Clr Drug Dosing 63.92 mL/min Estimated GFR (MDRD) > 60 (>60) Glucose 93 (74-106) mg/dL Calcium 8.6 (8.5-10.1) mg/dL Total Bilirubin 2.4 H (0.2-1.0) mg/dL AST 48 H (15-37) U/L ALT 42 (12-78) U/L Alkaline Phosphatase 164 H (46-116) U/L Ammonia (11-32) umol/L Total Protein 6.8 (6.4-8.2) g/dL Albumin 2.3 L (3.4-5.0) g/dL Globulin 4.5 H (2.3-3.5) g/dL Albumin/Globulin Ratio 0.5 L (1.2-2.2) Urine Color (YELLOW) Urine Appearance (CLEAR) Urine pH (5.0-8.0) Ur Specific [place] (1.008-1.030) Urine Protein (NEGATIVE) mg/dL Urine Glucose (UA) (NEGATIVE) mg/dL Urine Ketones (NEGATIVE) mg/dL Urine Occult Blood (NEGATIVE) Urine Nitrite (NEGATIVE) Urine Bilirubin (NEGATIVE) Urine Urobilinogen (0.2-1.0) EU/dL Ur Leukocyte Esterase (NEGATIVE) Urine RBC (0-5) Urine WBC (0-5) Ur Epithelial Cells Amorphous Sediment Urine Bacteria Urine Mucus Ethyl Alcohol < 3 mg/dL Influenza Type A RNA (NEGATIVE) RSV RNA (INAAT) (NEGATIVE) Influenza Type B RNA (NEGATIVE) SARS-CoV-2 RNA (EDGAR) (NEGATIVE) 03/04/21 03/04/21 03/04/21 Range/Units 03:41 03:58 03:58 WBC (4.5-11.0) K/uL RBC (3.30-5.50) M/uL Hgb (12.0-15.0) g/dL Hct (36.0-48.0) % MCV (80-98) fL MCH (27-31) pg MCHC (32-36) % Plt Count (150-400) K/uL Neut % (Auto) (36-66) % Lymph % (Auto) (24-44) % Blair % (Auto) (2-6) % Eos % (Auto) (2-4) % Baso % (Auto) (0-1) % Sodium (140-148) mmol/L Potassium (3.6-5.2) mmol/L Chloride (100-108) mmol/L Carbon Dioxide (21-32) mmol/L Anion Gap (5.0-14.0) mmol/L BUN (7-18) mg/dL Creatinine (0.6-1.0) mg/dL Est Cr Clr Drug Dosing mL/min Estimated GFR (MDRD) (>60) Glucose (74-106) mg/dL Calcium (8.5-10.1) mg/dL Total Bilirubin (0.2-1.0) mg/dL AST (15-37) U/L ALT (12-78) U/L Alkaline Phosphatase (46-116) U/L Ammonia 52 H (11-32) umol/L Total Protein (6.4-8.2) g/dL Albumin (3.4-5.0) g/dL Globulin (2.3-3.5) g/dL Albumin/Globulin Ratio (1.2-2.2) Urine Color Yellow (YELLOW) Urine Appearance Clear (CLEAR) Urine pH 5.5 (5.0-8.0) Ur Specific [place] 1.020 (1.008-1.030) Urine Protein Negative (NEGATIVE) mg/dL Urine Glucose (UA) Negative (NEGATIVE) mg/dL Urine Ketones Negative (NEGATIVE) mg/dL Urine Occult Blood Negative (NEGATIVE) Urine Nitrite Negative (NEGATIVE) Urine Bilirubin Negative (NEGATIVE) Urine Urobilinogen 1.0 (0.2-1.0) EU/dL Ur Leukocyte Esterase Negative (NEGATIVE) Urine RBC 0-5 (0-5) Urine WBC 0-5 (0-5) Ur Epithelial Cells Few Amorphous Sediment Few Urine Bacteria Few Urine Mucus Not seen Ethyl Alcohol mg/dL Influenza Type A RNA Negative (NEGATIVE) RSV RNA (INAAT) Negative (NEGATIVE) Influenza Type B RNA Negative (NEGATIVE) SARS-CoV-2 RNA (EDGAR) Negative (NEGATIVE) Meds: Medications Generic Name Dose Route Start Last Admin Trade Name Freq PRN Reason Stop Dose Admin Citalopram Hydrobromide 20 mg 03/04/21 09:15 03/04/21 09:57 Citalopram 20 Mg Tab PO 20 mg DAILY BILLY Administration Cyanocobalamin 1,000 mcg 03/05/21 09:00 Cyanocobalamin (Vitamin B12) 1,000 Mcg Tab SL DAILY BILLY Dicyclomine HCl 10 mg 03/04/21 14:00 03/04/21 13:51 Dicyclomine 10 Mg Cap PO 10 mg TID BILLY Administration Fentanyl 25 mcg 03/05/21 13:00 Fentanyl 25 Mcg/Hr Transdermal Patch TOP Q72H BILLY Gabapentin 600 mg 03/04/21 14:00 03/04/21 13:51 Gabapentin 300 Mg Cap PO 600 mg TID BILLY Administration Promethazine HCl 6.25 mg/ 50.25 mls @ 200 mls/hr 03/04/21 04:06 Sodium Chloride IV Q6H PRN Nausea/Vomiting Albumin Human 25 gm in 100 mls @ 25 mls/hr 03/04/21 12:30 03/04/21 17:33 Albumin 25% IV 03/05/21 10:29 25 mls/hr Q6H BILLY Administration Influenza Virus Vaccine 60 mcg 03/05/21 10:00 Flu Vacc [id number](6mos Up)/Pf 60 Mcg/0.5 Ml Syringe IM 03/05/21 10:01 .ONCE ONE Lactulose 10 gm 03/04/21 21:00 Lactulose Soln 10 Gm/15 Ml 15 Ml Ud Cup PO BID BILLY Morphine Sulfate 2 mg 03/04/21 04:06 Morphine 2 Mg/Ml Syringe IVPUSH Q2H PRN Pain (severe 7-10) Verify Fentanyl 0 each 03/04/21 12:30 03/04/21 12:38 Patch TOP Not Given BID BILLY Oxycodone HCl 5 mg 03/04/21 04:06 Oxycodone 5 Mg Tab PO Q4H PRN Pain (moderate 4-6) Pantoprazole Sodium 40 mg 03/05/21 07:30 Pantoprazole 40 Mg Tab.Cr PO ACBREAKFAST BILLY Promethazine HCl 25 mg 03/04/21 04:06 Promethazine 25 Mg Tab PO Q6H PRN Nausea able to take PO Simethicone 125 mg 03/04/21 14:56 Simethicone 125 Mg Tab.Chew PO Q4H PRN Abdominal Pain Thiamine HCl 100 mg 03/05/21 09:00 Thiamine 100 Mg Tab PO DAILY BILLY Trazodone HCl 50 mg 03/04/21 21:00 Trazodone 50 Mg Tab PO BEDTIME BILLY Zinc Sulfate 220 mg 03/04/21 09:00 03/04/21 09:58 Zinc Sulfate 220 Mg Cap PO 220 mg DAILY BILLY Administration Discontinued Medications Generic Name Dose Route Start Last Admin Trade Name Freq PRN Reason Stop Dose Admin Furosemide 40 mg 03/04/21 03:29 03/04/21 03:45 Furosemide 40 Mg/4 Ml Vial IVPUSH 03/04/21 03:30 40 mg ONETIME ONE Administration Furosemide 40 mg 03/04/21 04:34 03/04/21 09:14 Furosemide 40 Mg/4 Ml Vial IVPUSH 03/04/21 04:35 40 mg ONETIME ONE Administration Furosemide 40 mg 03/04/21 10:00 Furosemide 40 Mg/4 Ml Vial IVPUSH 03/04/21 10:01 ONETIME ONE Furosemide 40 mg 03/04/21 15:00 03/04/21 13:59 Furosemide 40 Mg/4 Ml Vial IVPUSH 03/04/21 15:01 40 mg ONETIME ONE Administration Albumin Human 25 gm/ Premix 100 mls @ 25 mls/hr 03/04/21 04:32 03/04/21 05:40 IV 03/04/21 08:31 25 mls/hr ONETIME ONE Administration Sodium Chloride 500 mls @ 50 mls/hr 03/04/21 11:45 03/04/21 12:38 Sodium Chloride 3% IV 03/04/21 12:46 50 mls/hr ASDIRECTED BILLY Administration Lactulose 10 gm 03/04/21 12:15 03/04/21 12:38 Lactulose Soln 10 Gm/15 Ml 15 Ml Ud Cup PO 03/04/21 12:16 10 gm ONETIME ONE Administration Pantoprazole Sodium 40 mg 03/04/21 04:06 03/04/21 05:36 Pantoprazole 40 Mg Vial IV 03/04/21 04:07 40 mg ONETIME ONE Administration Simethicone 125 mg 03/04/21 09:30 03/04/21 12:39 Simethicone 125 Mg Tab.Chew PO Not Given Q4H BILLY Spironolactone 100 mg 03/04/21 09:00 Spironolactone 25 Mg Tab PO BID BILLY Spironolactone 50 mg 03/04/21 15:00 03/04/21 14:00 Spironolactone 25 Mg Tab PO 03/04/21 15:01 50 mg ONETIME ONE Administration - Re-Assessments/Exams Free Text/Narrative Re-Assessment/Exam: 03/04/21 03:42 Her previous hospitalization was reviewed in its entirety, no source of GI bleed was found. She was discharged and treated for an E. coli urinary infection and told to double her diuretics. Despite this she has gained significant weight, now has increased peripheral edema and ascites. She is unable to walk due to pain, she cannot be taken care of at home in this condition. A bedside [id number] ultrasound revealed moderate diffuse ascites, especially in the lower abdomen. An IV will be started, she'll be given 40 mg of IV Lasix. CBC, CMP, ammonia and UA will be obtained, Dr. Shelley Belle was consulted to see the patient for admission. Departure - Departure Time of Disposition: 05:06 Disposition: Admitted As Inpatient 64 Clinical Impression: Hypoalbuminemia, Alcoholic cirrhosis of liver with ascites, Hyperammonemia Edema Qualifiers: Edema type: unspecified Qualified Code(s): R60.9 - Edema, unspecified - Discharge Information Sepsis Event Note (ED) - Evaluation Sepsis Screening Result: No Definite Risk - My Orders Last 24 Hours: My Active Orders 03/04/21 03:55 Isolation [COMM] Stat - Assessment/Plan Last 24 Hours: My Active Orders 03/04/21 03:55 Isolation [COMM] Stat
[2021-03-04] MEDS ORDERED: Morphine 2 MG/ML SYRINGE IVPUSH PRN (04:06)
[2021-03-04] MEDS ORDERED: Pantoprazole 40 MG Vial IV ONE (04:06)
[2021-03-04] MEDS ORDERED: oxyCODONE 5 MG Tab PO PRN (04:06)
[2021-03-04] MEDS ORDERED: Promethazine 6.25 MG in Sodium Chloride 0.9% 50 ML IV PRN (04:06)
[2021-03-04] MEDS ORDERED: Albumin Human 25 GM in Premix Bag 1 BAG IV ONE (04:32)
[2021-03-04 04:43] LABS: CORONAVIRUS COVID-19 NAA NEGATIVE (NEGATIVE)
--- NOTE | 2021-03-04 04:46 | PCM.HP.2 ---
H&P History of Present Illness - General Date of Service: 03/04/21 Admit Problem/Dx: Admission Diagnosis/Problem Admission Diagnosis/Problem End stage liver disease Source of Information: Patient, Provider, RN History Limitations: Reports: No Limitations - History of Present Illness Initial Comments - Free Text/Narative: patient is 45yo F with ESLD who is here for ascites and leg edema. She is having considerable pain with weeping of her legs. She has some dyspnea due to having moderate ascites. She has no other complaints at this time. Onset of Symptoms: Reports: Gradual Duration of Symptoms: Reports: Week(s): Severity: Moderate Bilateral Leg Pain Score (Numeric/FACES): 10 - Related Data Allergies/Adverse Reactions: Allergies Allergy/AdvReac Type Severity Reaction Status Date / Time doxycycline Allergy Intermediate Rash Verified 03/04/21 03:07 erythromycin base Allergy Intermediate Rash Verified 03/04/21 03:07 procaine [From Novocain] Allergy Intermediate Rash Verified 03/04/21 03:07 Home Medications: Home Meds Multivitamin [Multi-Vitamin Daily] 1 tab PO DAILY 12/02/15 [History] Gabapentin [Neurontin] 600 mg PO TID 07/13/18 [History] Albuterol Sulfate [Proair Respiclick] 1 - 2 puff IH Q4HR PRN 08/10/18 [History] Cyanocobalamin (Vitamin B-12) [Vitamin B-12] 1,000 mcg SL DAILY 08/10/18 [History] Magnesium 400 mg PO BID 11/23/18 [History] Citalopram [Citalopram HBr] 20 mg PO DAILY #30 tablet 04/14/19 [Rx] Lidocaine/Prilocaine [EMLA Crm] 1 applic TP ASDIRECTED PRN 10/30/20 [History] Ondansetron [Zofran ODT] 4 mg PO Q6H PRN 10/30/20 [History] SUMAtriptan succinate [Imitrex] 100 mg PO ASDIRECTED PRN 10/30/20 [History] traZODone 50 mg PO BEDTIME 10/30/20 [History] Dicyclomine [Bentyl] 10 mg PO TID 11/19/20 [History] Furosemide [Lasix] 20 mg PO BID #0 12/04/20 [Rx] Pantoprazole [ProTONIX] 40 mg PO ACBREAKFAST #30 tab.cr 12/04/20 [Rx] Spironolactone [Aldactone] 50 mg PO BID #0 12/04/20 [Rx] Cholecalciferol (Vitamin D3) [Vitamin D] 400 unit PO DAILY 01/26/21 [History] Ergocalciferol (Vitamin D2) [Vitamin D2] 1.25 mg PO ASDIRECTED 01/26/21 [History] Ferrous Fumarate/Vitamin C [Vitron-C] 1 tab PO DAILY 01/26/21 [History] Ferrous Sulfate 325 mg PO DAILY 01/26/21 [History] Scopolamine [Transderm-Scop] 1 patch TD Q3D 01/26/21 [History] Simethicone 125 mg PO Q4H 01/26/21 [History] Thiamine [Vitamin B-1] 100 mg PO DAILY 01/26/21 [History] Vitamin A Palmitate [Vitamin A] 50,000 unit PO DAILY 01/26/21 [History] Zinc 50 mg PO DAILY 01/26/21 [History] polyethylene glycoL 3350 [MiraLAX] 8 gm PO DAILY 01/26/21 [History] Lactulose [Chronulac] 10 gm PO BID #1000 ml 01/29/21 [Rx] metroNIDAZOLE 250 mg PO QID #20 tablet 01/29/21 [Rx] Sucralfate 1 dose PO ASDIRECTED 02/14/21 [History] fentaNYL [Duragesic] 1 patch TOP ASDIRECTED 02/26/21 [History] cephALEXin [Cephalexin] 500 mg PO BID #9 capsule 02/28/21 [Rx] Past Medical History HEENT History: Reports: None Cardiovascular History: Reports: Hypertension Respiratory History: Reports: Asthma Gastrointestinal History: Reports: Cirrhosis, GERD, Other (See Below) Other Gastrointestinal History: RNY 2002 Genitourinary History: Reports: Other (See Below) Other Genitourinary History: 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 fistula [employer]INE [employer] History: Reports: Dysfunctional Uterine Bleeding, Musculoskeletal History: Reports: Fracture Neurological History: Reports: Migraines Psychiatric History: Reports: Addiction, Anxiety, Depression Endocrine/Metabolic History: Reports: Hypothyroidism, Vitamin D Deficiency Hematologic History: Reports: Anemia, B12 Deficiency, Blood Transfusion(s), Iron Deficiency, Other (See Below) Other Hematologic History: vitamin D def. liver failure Dermatologic History: Reports: Other (See Below) Other Dermatologic History: sores on face, neck, hands and back - Infectious Disease History Infectious Disease History: Reports: Chicken Pox, Measles - Past Surgical History HEENT Surgical History: Reports: Oral Surgery Cardiovascular Surgical History: Reports: None Respiratory Surgical History: Reports: None GI Surgical History: Reports: Bariatric Procedure, Cholecystectomy, Colonoscopy, EGD Female Surgical History: Reports: Section, Hysterectomy, Tubal Ligation Endocrine Surgical History: Reports: None Musculoskeletal Surgical History: Reports: Other (See Below) Other Musculoskeletal Surgeries/Procedures:: Ankle plate/pin - hdwe removed Social & Family History - Family History Family Medical History: No Pertinent Family History Cardiac: Reports: GA - Tobacco Use Tobacco Use Status *Q: Unknown Ever Used Tobacco - Caffeine Use Caffeine Use: Reports: Soda Caffeine Use Comment: occasional soda - Alcohol Use Date of Last Drink: 10/30/20 - Recreational Drug Use Recreational Drug Use: No - Living Situation & Occupation Living situation: Reports: Single Occupation: Disabled (has her own home- Daughter, her Daughter's Boyfriends and thier 3 children live with her. They assist her with medications .) H&P Review of Systems - Review of Systems: Review Of Systems: See Below General: Reports: Weight Gain. Denies: Fever, Chills, Malaise, Weakness HEENT: Reports: No Symptoms Pulmonary: Reports: Shortness of Breath Cardiovascular: Reports: No Symptoms. Denies: Chest Pain, Palpitations, Dyspnea on Exertion Gastrointestinal: Reports: Abdominal Pain, Distension, Other (ascites) Genitourinary: Reports: No Symptoms Musculoskeletal: Reports: No Symptoms Skin: Reports: Other (4+ weeping edema) Psychiatric: Reports: No Symptoms Neurological: Reports: No Symptoms Hematologic/Lymphatic: Reports: No Symptoms Immunologic: Reports: No Symptoms Exam - Exam Exam: See Below - Vital Signs Vital Signs: Last Vital Signs Temp Pulse 106 H 03/04/21 03:03 Resp 16 03/04/21 03:03 BP 121/65 03/04/21 03:03 Pulse Ox 100 03/04/21 03:03 Weight: 85.5 kg - Exam General: Alert, Oriented, 4 HEENT: PERRLA, Hearing Intact, Mucosa Moist & [place], Nares Patent, Normal Nasal Septum, Posterior Pharynx Clear, Conjunctiva Clear, EOMI, EACs Clear, TMs Clear Neck: Supple, Trachea Midline, 2 Lungs: Clear to Auscultation, Normal Respiratory Effort Cardiovascular: Regular Rate, Regular Rhythm GI/Abdominal Exam: Normal Bowel Sounds, Soft, Non-Tender, No Mass, Rigid (mild) (Female) Exam: Deferred Rectal (Female) Exam: Deferred Back Exam: Normal Inspection, Full Range of Motion, NT Extremities: Normal Inspection, Normal Range of Motion, Leg Pain, Other (4+ weeping edema) Skin: Other (edema) Neurological: Cranial Nerves Intact, Reflexes Equal Bilateral Neuro Extensive - Mental Status: Alert, Oriented x3, Normal Mood/Affect, Normal Cognition Neuro Extensive - Motor, Sensory, Reflexes: CN II-XII Intact, Normal Gait, Normal Reflexes Psychiatric: Alert, Normal Affect, Normal Mood - Patient Data Lab Results Last 24 hrs: Laboratory Results - last 24 hr 03/04/21 03/04/21 03/04/21 Range/Units 03:41 03:41 03:41 WBC 6.5 (4.5-11.0) K/uL RBC 2.52 L (3.30-5.50) M/uL Hgb 9.2 L (12.0-15.0) g/dL Hct 26.5 L (36.0-48.0) % MCV 105 H (80-98) fL MCH 37 H (27-31) pg MCHC 35 (32-36) % Plt Count 128 L (150-400) K/uL Neut % (Auto) 69.0 H (36-66) % Lymph % (Auto) 18.6 L (24-44) % [place] % (Auto) 11.4 H (2-6) % Eos % (Auto) 0.8 L (2-4) % Baso % (Auto) 0.2 (0-1) % Sodium 122 L (140-148) mmol/L Potassium 4.1 (3.6-5.2) mmol/L Chloride 90 L (100-108) mmol/L Carbon Dioxide 22 (21-32) mmol/L Anion Gap 14.1 H (5.0-14.0) mmol/L BUN 10 (7-18) mg/dL Creatinine 0.9 (0.6-1.0) mg/dL Est Cr Clr Drug Dosing 63.92 mL/min Estimated GFR (MDRD) > 60 (>60) Glucose 93 (74-106) mg/dL Calcium 8.6 (8.5-10.1) mg/dL Total Bilirubin 2.4 H (0.2-1.0) mg/dL AST 48 H (15-37) U/L ALT 42 (12-78) U/L Alkaline Phosphatase 164 H (46-116) U/L Ammonia 52 H (11-32) umol/L Total Protein 6.8 (6.4-8.2) g/dL Albumin 2.3 L (3.4-5.0) g/dL Globulin 4.5 H (2.3-3.5) g/dL Albumin/Globulin Ratio 0.5 L (1.2-2.2) Urine Color (YELLOW) Urine Appearance (CLEAR) Urine pH (5.0-8.0) Ur Specific [place] (1.008-1.030) Urine Protein (NEGATIVE) mg/dL Urine Glucose (UA) (NEGATIVE) mg/dL Urine Ketones (NEGATIVE) mg/dL Urine Occult Blood (NEGATIVE) Urine Nitrite (NEGATIVE) Urine Bilirubin (NEGATIVE) Urine Urobilinogen (0.2-1.0) EU/dL Ur Leukocyte Esterase (NEGATIVE) Urine RBC (0-5) Urine WBC (0-5) Ur Epithelial Cells Amorphous Sediment Urine Bacteria Urine Mucus 03/04/21 Range/Units 03:58 WBC (4.5-11.0) K/uL RBC (3.30-5.50) M/uL Hgb (12.0-15.0) g/dL Hct (36.0-48.0) % MCV (80-98) fL MCH (27-31) pg MCHC (32-36) % Plt Count (150-400) K/uL Neut % (Auto) (36-66) % Lymph % (Auto) (24-44) % [place] % (Auto) (2-6) % Eos % (Auto) (2-4) % Baso % (Auto) (0-1) % Sodium (140-148) mmol/L Potassium (3.6-5.2) mmol/L Chloride (100-108) mmol/L Carbon Dioxide (21-32) mmol/L Anion Gap (5.0-14.0) mmol/L BUN (7-18) mg/dL Creatinine (0.6-1.0) mg/dL Est Cr Clr Drug Dosing mL/min Estimated GFR (MDRD) (>60) Glucose (74-106) mg/dL Calcium (8.5-10.1) mg/dL Total Bilirubin (0.2-1.0) mg/dL AST (15-37) U/L ALT (12-78) U/L Alkaline Phosphatase (46-116) U/L Ammonia (11-32) umol/L Total Protein (6.4-8.2) g/dL Albumin (3.4-5.0) g/dL Globulin (2.3-3.5) g/dL Albumin/Globulin Ratio (1.2-2.2) Urine Color Yellow (YELLOW) Urine Appearance Clear (CLEAR) Urine pH 5.5 (5.0-8.0) Ur Specific [place] 1.020 (1.008-1.030) Urine Protein Negative (NEGATIVE) mg/dL Urine Glucose (UA) Negative (NEGATIVE) mg/dL Urine Ketones Negative (NEGATIVE) mg/dL Urine Occult Blood Negative (NEGATIVE) Urine Nitrite Negative (NEGATIVE) Urine Bilirubin Negative (NEGATIVE) Urine Urobilinogen 1.0 (0.2-1.0) EU/dL Ur Leukocyte Esterase Negative (NEGATIVE) Urine RBC 0-5 (0-5) Urine WBC 0-5 (0-5) Ur Epithelial Cells Few Amorphous Sediment Few Urine Bacteria Few Urine Mucus Not seen Result Diagrams: 03/04/21 03:41 03/04/21 03:41 Sepsis Event Note - Evaluation Sepsis Screening Result: No Definite Risk - Focused Exam Vital Signs: Vital Signs Pulse Resp BP Pulse Ox 03/04/21 03:03 106 H 16 121/65 100 - Problem List (1) Alcoholic cirrhosis of liver with ascites SNOMED Code(s): 867625626, 877591967 ICD Code: K70.31 - ALCOHOLIC CIRRHOSIS OF LIVER WITH ASCITES Status: Chronic Priority: High Current Visit: No Onset Date: Unknown Problem Details: Will start albumin and follow with lasix. Additionally will increase dose of spironolactone. Surgery consult for paracentesis may be appropriate if ascites worsens, but currently belly does not feel sufficiently ridgid to be tapped. Will use SCDs to see if this helps with removing fluid from legs, if tolerated by patient. Will also give protonix for GI protection. Hold any acetominophen or any other hepato-toxic drugs. (2) Edema SNOMED Code(s): 269675270, 568196242 ICD Code: R60.9 - EDEMA, UNSPECIFIED Status: Acute Current Visit: Yes Problem Details: Will use albumin followed by lasix to improve diuresis given hypoalbuminemia (3) Hypoalbuminemia SNOMED Code(s): 494322592 ICD Code: E88.09 - OTH DISORDERS OF PLASMA-PROTEIN METABOLISM, NEC Status: Acute Current Visit: Yes Problem Details: will give albumin followed by lasix Problem List Initiated/Reviewed/Updated: Yes Orders Last 24hrs: Active Orders 24 hr Category Date Time Status Patient Status [ADT] Routine ADT 03/04/21 04:06 Active Oxygen Therapy [RC] PRN Care 03/04/21 04:06 Active Pulse Oximetry [RC] CONTINUOUS Care 03/04/21 04:10 Active VTE/DVT Education [RC] Per Unit Routine Care 03/04/21 04:06 Active Vital Signs [RC] Q4H Care 03/04/21 04:06 Active Blood Alcohol [ETHANOL BLOOD MEDICAL] [CHEM] Routine Lab 03/04/21 04:21 Ordered CBC WITH AUTO DIFF [HEME] AM Lab 03/04/21 05:11 Ordered COMPREHENSIVE METABOLIC PN,CMP [CHEM] AM Lab 03/04/21 05:11 Ordered COVID-19/FLU A+B/RSV [MOLEC] Stat Lab 03/04/21 03:58 Ordered DRUG SCREEN, URINE [URCHEM] Stat Lab 03/04/21 04:21 Ordered Albumin Human [Albumin 25%] 25 gm Med 03/04/21 04:32 Ordered Premix Bag 1 bag IV ONETIME Furosemide [Lasix] Med 03/04/21 04:34 Once 40 mg IVPUSH ONETIME ONE Morphine Med 03/04/21 04:06 Ordered 2 mg IVPUSH Q2H PRN Promethazine [Phenergan] Med 03/04/21 04:06 Ordered 25 mg PO Q6H PRN Promethazine [Phenergan] 6.25 mg Med 03/04/21 04:06 Ordered Sodium Chloride 0.9% [Normal Saline] 50 ml IV Q6H Spironolactone [Aldactone] Med 03/04/21 09:00 Ordered 100 mg PO BID oxyCODONE Med 03/04/21 04:06 Ordered 5 mg PO Q4H PRN Isolation [COMM] Stat Oth 03/04/21 03:55 Ordered Sequential Compression Device [OM.PC] Per Unit Routine Oth 03/04/21 04:10 Ordered Resuscitation Status Routine Resus Stat 03/04/21 04:06 Ordered Medication Orders Furosemide (Furosemide 40 Mg/4 Ml Vial) 40 mg IVPUSH ONETIME ONE Stop: 03/04/21 04:35 Promethazine HCl 6.25 mg/ (Sodium Chloride) 50.25 mls @ 200 mls/hr IV Q6H PRN PRN Reason: Nausea/Vomiting Albumin Human 25 gm/ Premix 100 mls @ 25 mls/hr IV ONETIME ONE Stop: 03/04/21 08:31 Morphine Sulfate (Morphine 2 Mg/Ml Syringe) 2 mg IVPUSH Q2H PRN PRN Reason: Pain (severe 7-10) Oxycodone HCl (Oxycodone 5 Mg Tab) 5 mg PO Q4H PRN PRN Reason: Pain (moderate 4-6) Promethazine HCl (Promethazine 25 Mg Tab) 25 mg PO Q6H PRN PRN Reason: Nausea able to take PO Spironolactone (Spironolactone 25 Mg Tab) 100 mg PO BID BILLY - Mortality Measure Prognosis:: Good
[2021-03-04] MEDS ORDERED: Spironolactone 25 MG Tab PO SCH (09:00)
[2021-03-04] MEDS: Citalopram 20 MG Tab PO SCH (09:57)
[2021-03-04] MEDS: Simethicone 125 MG Tab.Chew PO SCH ×2 (09:58→12:39)
[2021-03-04] MEDS: Zinc Sulfate 220 MG Cap PO SCH (09:58)
--- NOTE | 2021-03-04 11:16 | US ---
Abdomen Ltd CLINICAL HISTORY: Real-time images are obtained through the abdomen to evaluate ascites FINDINGS: There is a small pocket of fluid in the right upper quadrant on the lower portion the right lobe of the liver. There is a tiny amount of fluid in the left lower quadrant IMPRESSION: Minimal ascitic fluid
--- NOTE | 2021-03-04 11:38 | PCM.PN ---
- General Info Date of Service: 03/04/21 Subjective Update: There were no acute events since admission. Patient is a little bit sleepy and a little bit confused but able to answer questions properly. She is complaining of discomfort in both of her legs because of the significant swelling. She is not complaining of abdominal pain at this time but does report abdominal fullness. No nausea. She has not voided in about 5 hours at the time of the evaluation. Sodium level is slightly lower now than at the time of admission. Functional Status: Reports: Pain Controlled - Review of Systems General: Denies: Fever Cardiovascular: Reports: Edema Psychiatric: Reports: Confusion - Patient Data Vitals - Most Recent: Last Vital Signs Temp 35.7 C L 03/04/21 10:04 Pulse 95 03/04/21 10:04 Resp 18 03/04/21 10:04 BP 116/71 03/04/21 10:04 Pulse Ox 99 03/04/21 10:04 Weight - Most Recent: 84.368 kg I&O - Last 24 Hours: Intake & Output 03/03/21 03/04/21 03/04/21 22:59 06:59 14:59 Intake Total 360 Output Total 850 Balance -490 Lab Results Last 24 Hours: Laboratory Results - last 24 hr 03/04/21 03/04/21 03/04/21 Range/Units 03:35 03:41 03:41 WBC 6.5 (4.5-11.0) K/uL RBC 2.52 L (3.30-5.50) M/uL Hgb 9.2 L (12.0-15.0) g/dL Hct 26.5 L (36.0-48.0) % MCV 105 H (80-98) fL MCH 37 H (27-31) pg MCHC 35 (32-36) % Plt Count 128 L (150-400) K/uL Neut % (Auto) 69.0 H (36-66) % Lymph % (Auto) 18.6 L (24-44) % [place] % (Auto) 11.4 H (2-6) % Eos % (Auto) 0.8 L (2-4) % Baso % (Auto) 0.2 (0-1) % Sodium 122 L (140-148) mmol/L Potassium 4.1 (3.6-5.2) mmol/L Chloride 90 L (100-108) mmol/L Carbon Dioxide 22 (21-32) mmol/L Anion Gap 14.1 H (5.0-14.0) mmol/L BUN 10 (7-18) mg/dL Creatinine 0.9 (0.6-1.0) mg/dL Est Cr Clr Drug Dosing 63.92 mL/min Estimated GFR (MDRD) > 60 (>60) Glucose 93 (74-106) mg/dL Calcium 8.6 (8.5-10.1) mg/dL Total Bilirubin 2.4 H (0.2-1.0) mg/dL AST 48 H (15-37) U/L ALT 42 (12-78) U/L Alkaline Phosphatase 164 H (46-116) U/L Ammonia (11-32) umol/L Total Protein 6.8 (6.4-8.2) g/dL Albumin 2.3 L (3.4-5.0) g/dL Globulin 4.5 H (2.3-3.5) g/dL Albumin/Globulin Ratio 0.5 L (1.2-2.2) Urine Color (YELLOW) Urine Appearance (CLEAR) Urine pH (5.0-8.0) Ur Specific [place] (1.008-1.030) Urine Protein (NEGATIVE) mg/dL Urine Glucose (UA) (NEGATIVE) mg/dL Urine Ketones (NEGATIVE) mg/dL Urine Occult Blood (NEGATIVE) Urine Nitrite (NEGATIVE) Urine Bilirubin (NEGATIVE) Urine Urobilinogen (0.2-1.0) EU/dL Ur Leukocyte Esterase (NEGATIVE) Urine RBC (0-5) Urine WBC (0-5) Ur Epithelial Cells Amorphous Sediment Urine Bacteria Urine Mucus Urine Opiates Screen (NEGATIVE) Ur Oxycodone Screen (NEGATIVE) Urine Methadone Screen (NEGATIVE) Ur Propoxyphene Screen (NEGATIVE) Ur Barbiturates Screen (NEGATIVE) Ur Tricyclics Screen (NEGATIVE) Ur Phencyclidine Scrn (NEGATIVE) Ur Amphetamine Screen (NEGATIVE) U Methamphetamines Scrn (NEGATIVE) Urine MDMA Screen (NEGATIVE) U Benzodiazepines Scrn (NEGATIVE) U Cocaine Metab Screen (NEGATIVE) U Marijuana (THC) Screen (NEGATIVE) Ethyl Alcohol < 3 mg/dL Influenza Type A RNA (NEGATIVE) RSV RNA (INAAT) (NEGATIVE) Influenza Type B RNA (NEGATIVE) SARS-CoV-2 RNA (EDGRA) (NEGATIVE) 03/04/21 03/04/21 03/04/21 Range/Units 03:41 03:58 03:58 WBC (4.5-11.0) K/uL RBC (3.30-5.50) M/uL Hgb (12.0-15.0) g/dL Hct (36.0-48.0) % MCV (80-98) fL MCH (27-31) pg MCHC (32-36) % Plt Count (150-400) K/uL Neut % (Auto) (36-66) % Lymph % (Auto) (24-44) % [place] % (Auto) (2-6) % Eos % (Auto) (2-4) % Baso % (Auto) (0-1) % Sodium (140-148) mmol/L Potassium (3.6-5.2) mmol/L Chloride (100-108) mmol/L Carbon Dioxide (21-32) mmol/L Anion Gap (5.0-14.0) mmol/L BUN (7-18) mg/dL Creatinine (0.6-1.0) mg/dL Est Cr Clr Drug Dosing mL/min Estimated GFR (MDRD) (>60) Glucose (74-106) mg/dL Calcium (8.5-10.1) mg/dL Total Bilirubin (0.2-1.0) mg/dL AST (15-37) U/L ALT (12-78) U/L Alkaline Phosphatase (46-116) U/L Ammonia 52 H (11-32) umol/L Total Protein (6.4-8.2) g/dL Albumin (3.4-5.0) g/dL Globulin (2.3-3.5) g/dL Albumin/Globulin Ratio (1.2-2.2) Urine Color Yellow (YELLOW) Urine Appearance Clear (CLEAR) Urine pH 5.5 (5.0-8.0) Ur Specific [place] 1.020 (1.008-1.030) Urine Protein Negative (NEGATIVE) mg/dL Urine Glucose (UA) Negative (NEGATIVE) mg/dL Urine Ketones Negative (NEGATIVE) mg/dL Urine Occult Blood Negative (NEGATIVE) Urine Nitrite Negative (NEGATIVE) Urine Bilirubin Negative (NEGATIVE) Urine Urobilinogen 1.0 (0.2-1.0) EU/dL Ur Leukocyte Esterase Negative (NEGATIVE) Urine RBC 0-5 (0-5) Urine WBC 0-5 (0-5) Ur Epithelial Cells Few Amorphous Sediment Few Urine Bacteria Few Urine Mucus Not seen Urine Opiates Screen (NEGATIVE) Ur Oxycodone Screen (NEGATIVE) Urine Methadone Screen (NEGATIVE) Ur Propoxyphene Screen (NEGATIVE) Ur Barbiturates Screen (NEGATIVE) Ur Tricyclics Screen (NEGATIVE) Ur Phencyclidine Scrn (NEGATIVE) Ur Amphetamine Screen (NEGATIVE) U Methamphetamines Scrn (NEGATIVE) Urine MDMA Screen (NEGATIVE) U Benzodiazepines Scrn (NEGATIVE) U Cocaine Metab Screen (NEGATIVE) U Marijuana (THC) Screen (NEGATIVE) Ethyl Alcohol mg/dL Influenza Type A RNA Negative (NEGATIVE) RSV RNA (INAAT) Negative (NEGATIVE) Influenza Type B RNA Negative (NEGATIVE) SARS-CoV-2 RNA (EDGAR) Negative (NEGATIVE) 03/04/21 03/04/21 Range/Units 04:35 10:00 WBC (4.5-11.0) K/uL RBC (3.30-5.50) M/uL Hgb (12.0-15.0) g/dL Hct (36.0-48.0) % MCV (80-98) fL MCH (27-31) pg MCHC (32-36) % Plt Count (150-400) K/uL Neut % (Auto) (36-66) % Lymph % (Auto) (24-44) % [place] % (Auto) (2-6) % Eos % (Auto) (2-4) % Baso % (Auto) (0-1) % Sodium 120 L (140-148) mmol/L Potassium 3.9 (3.6-5.2) mmol/L Chloride 89 L (100-108) mmol/L Carbon Dioxide 23 (21-32) mmol/L Anion Gap 11.9 (5.0-14.0) mmol/L BUN 11 (7-18) mg/dL Creatinine 0.9 (0.6-1.0) mg/dL Est Cr Clr Drug Dosing 63.92 mL/min Estimated GFR (MDRD) > 60 (>60) Glucose 67 L (74-106) mg/dL Calcium 8.5 (8.5-10.1) mg/dL Total Bilirubin (0.2-1.0) mg/dL AST (15-37) U/L ALT (12-78) U/L Alkaline Phosphatase (46-116) U/L Ammonia (11-32) umol/L Total Protein (6.4-8.2) g/dL Albumin (3.4-5.0) g/dL Globulin (2.3-3.5) g/dL Albumin/Globulin Ratio (1.2-2.2) Urine Color (YELLOW) Urine Appearance (CLEAR) Urine pH (5.0-8.0) Ur Specific [place] (1.008-1.030) Urine Protein (NEGATIVE) mg/dL Urine Glucose (UA) (NEGATIVE) mg/dL Urine Ketones (NEGATIVE) mg/dL Urine Occult Blood (NEGATIVE) Urine Nitrite (NEGATIVE) Urine Bilirubin (NEGATIVE) Urine Urobilinogen (0.2-1.0) EU/dL Ur Leukocyte Esterase (NEGATIVE) Urine RBC (0-5) Urine WBC (0-5) Ur Epithelial Cells Amorphous Sediment Urine Bacteria Urine Mucus Urine Opiates Screen Negative (NEGATIVE) Ur Oxycodone Screen Presumptive positive H (NEGATIVE) Urine Methadone Screen Negative (NEGATIVE) Ur Propoxyphene Screen Negative (NEGATIVE) Ur Barbiturates Screen Negative (NEGATIVE) Ur Tricyclics Screen Negative (NEGATIVE) Ur Phencyclidine Scrn Negative (NEGATIVE) Ur Amphetamine Screen Negative (NEGATIVE) U Methamphetamines Scrn Negative (NEGATIVE) Urine MDMA Screen Negative (NEGATIVE) U Benzodiazepines Scrn Negative (NEGATIVE) U Cocaine Metab Screen Negative (NEGATIVE) U Marijuana (THC) Screen Presumptive positive H (NEGATIVE) Ethyl Alcohol mg/dL Influenza Type A RNA (NEGATIVE) RSV RNA (INAAT) (NEGATIVE) Influenza Type B RNA (NEGATIVE) SARS-CoV-2 RNA (EDGAR) (NEGATIVE) Med Orders - Current: Current Medications Citalopram Hydrobromide (Citalopram 20 Mg Tab) 20 mg PO DAILY [facility] [place] Last Admin: 03/04/21 09:57 Dose: 20 mg Documented by: Cyanocobalamin (Cyanocobalamin (Vitamin B12) 1,000 Mcg Tab) 1,000 mcg SL DAILY [facility] [place] Dicyclomine HCl (Dicyclomine 10 Mg Cap) 10 mg PO TID BILLY Fentanyl (Fentanyl 25 Mcg/Hr Transdermal Patch) mcg TOP Q72H BILLY Furosemide (Furosemide 40 Mg/4 Ml Vial) 40 mg IVPUSH ONETIME ONE Stop: 03/04/21 15:01 Gabapentin (Gabapentin 300 Mg Cap) 600 mg PO TID [facility] [place] Promethazine HCl 6.25 mg/ (Sodium Chloride) 50.25 mls @ 200 mls/hr IV Q6H PRN PRN Reason: Nausea/Vomiting Albumin Human (Albumin 25%) 25 gm in 100 mls @ 25 mls/hr IV Q6H [facility] Stop: 03/05/21 09:44 Influenza Virus Vaccine (Flu Vacc [id number](6mos Up)/Pf 60 Mcg/0.5 Ml Syringe) 60 mcg IM .ONCE ONE Stop: 03/05/21 10:01 Lactulose (Lactulose Soln 10 Gm/15 Ml 15 Ml Ud Cup) 10 gm PO BID [facility] [place] Morphine Sulfate (Morphine 2 Mg/Ml Syringe) 2 mg IVPUSH Q2H PRN PRN Reason: Pain (severe 7-10) Oxycodone HCl (Oxycodone 5 Mg Tab) 5 mg PO Q4H PRN PRN Reason: Pain (moderate 4-6) Pantoprazole Sodium (Pantoprazole 40 Mg Tab.Cr) 40 mg PO ACBREAKFAST [facility] [place] Promethazine HCl (Promethazine 25 Mg Tab) 25 mg PO Q6H PRN PRN Reason: Nausea able to take PO Simethicone (Simethicone 125 Mg Tab.Chew) 125 mg PO Q4H [facility] [place] Last Admin: 03/04/21 09:58 Dose: 125 mg Documented by: Spironolactone (Spironolactone 25 Mg Tab) 50 mg PO ONETIME ONE Stop: 03/04/21 15:01 Thiamine HCl (Thiamine 100 Mg Tab) 100 mg PO DAILY [facility] [place] Trazodone HCl (Trazodone 50 Mg Tab) 50 mg PO BEDTIME [facility] [place] Zinc Sulfate (Zinc Sulfate 220 Mg Cap) 220 mg PO DAILY [facility] Last Admin: 03/04/21 09:58 Dose: 220 mg Documented by: Discontinued Medications Furosemide (Furosemide 40 Mg/4 Ml Vial) 40 mg IVPUSH ONETIME ONE Stop: 03/04/21 03:30 Last Admin: 03/04/21 03:45 Dose: 40 mg Documented by: Furosemide (Furosemide 40 Mg/4 Ml Vial) 40 mg IVPUSH ONETIME ONE Stop: 03/04/21 04:35 Last Admin: 03/04/21 09:14 Dose: 40 mg Documented by: Furosemide (Furosemide 40 Mg/4 Ml Vial) 40 mg IVPUSH ONETIME ONE Stop: 03/04/21 10:01 Albumin Human 25 gm/ Premix 100 mls @ 25 mls/hr IV ONETIME ONE Stop: 03/04/21 08:31 Last Admin: 03/04/21 05:40 Dose: 25 mls/hr Documented by: Pantoprazole Sodium (Pantoprazole 40 Mg Vial) 40 mg IV ONETIME ONE Stop: 03/04/21 04:07 Last Admin: 03/04/21 05:36 Dose: 40 mg Documented by: Spironolactone (Spironolactone 25 Mg Tab) 100 mg PO BID BILLY - Exam Quality Assessment: No: Supplemental Oxygen General: Alert, Cooperative, No Acute Distress, Lethargic HEENT: Pupils Equal Lungs: Normal Respiratory Effort GI/Abdominal Exam: Soft, Distended Extremities: Pedal Edema. No: Increased Warmth Skin: Warm, Dry Psy/Mental Status: Alert. No: Agitated - Patient Data Lab Results Last 24 hrs: Laboratory Results - last 24 hr 03/04/21 03/04/21 03/04/21 Range/Units 03:35 03:41 03:41 WBC 6.5 (4.5-11.0) K/uL RBC 2.52 L (3.30-5.50) M/uL Hgb 9.2 L (12.0-15.0) g/dL Hct 26.5 L (36.0-48.0) % MCV 105 H (80-98) fL MCH 37 H (27-31) pg MCHC 35 (32-36) % Plt Count 128 L (150-400) K/uL Neut % (Auto) 69.0 H (36-66) % Lymph % (Auto) 18.6 L (24-44) % [place] % (Auto) 11.4 H (2-6) % Eos % (Auto) 0.8 L (2-4) % Baso % (Auto) 0.2 (0-1) % Sodium 122 L (140-148) mmol/L Potassium 4.1 (3.6-5.2) mmol/L Chloride 90 L (100-108) mmol/L Carbon Dioxide 22 (21-32) mmol/L Anion Gap 14.1 H (5.0-14.0) mmol/L BUN 10 (7-18) mg/dL Creatinine 0.9 (0.6-1.0) mg/dL Est Cr Clr Drug Dosing 63.92 mL/min Estimated GFR (MDRD) > 60 (>60) Glucose 93 (74-106) mg/dL Calcium 8.6 (8.5-10.1) mg/dL Total Bilirubin 2.4 H (0.2-1.0) mg/dL AST 48 H (15-37) U/L ALT 42 (12-78) U/L Alkaline Phosphatase 164 H (46-116) U/L Ammonia (11-32) umol/L Total Protein 6.8 (6.4-8.2) g/dL Albumin 2.3 L (3.4-5.0) g/dL Globulin 4.5 H (2.3-3.5) g/dL Albumin/Globulin Ratio 0.5 L (1.2-2.2) Urine Color (YELLOW) Urine Appearance (CLEAR) Urine pH (5.0-8.0) Ur Specific [place] (1.008-1.030) Urine Protein (NEGATIVE) mg/dL Urine Glucose (UA) (NEGATIVE) mg/dL Urine Ketones (NEGATIVE) mg/dL Urine Occult Blood (NEGATIVE) Urine Nitrite (NEGATIVE) Urine Bilirubin (NEGATIVE) Urine Urobilinogen (0.2-1.0) EU/dL Ur Leukocyte Esterase (NEGATIVE) Urine RBC (0-5) Urine WBC (0-5) Ur Epithelial Cells Amorphous Sediment Urine Bacteria Urine Mucus Urine Opiates Screen (NEGATIVE) Ur Oxycodone Screen (NEGATIVE) Urine Methadone Screen (NEGATIVE) Ur Propoxyphene Screen (NEGATIVE) Ur Barbiturates Screen (NEGATIVE) Ur Tricyclics Screen (NEGATIVE) Ur Phencyclidine Scrn (NEGATIVE) Ur Amphetamine Screen (NEGATIVE) U Methamphetamines Scrn (NEGATIVE) Urine MDMA Screen (NEGATIVE) U Benzodiazepines Scrn (NEGATIVE) U Cocaine Metab Screen (NEGATIVE) U Marijuana (THC) Screen (NEGATIVE) Ethyl Alcohol < 3 mg/dL Influenza Type A RNA (NEGATIVE) RSV RNA (INAAT) (NEGATIVE) Influenza Type B RNA (NEGATIVE) SARS-CoV-2 RNA (EDGAR) (NEGATIVE) 12/28/21 12/28/21 12/28/21 Range/Units 03:41 03:58 03:58 WBC (4.5-11.0) K/uL RBC (3.30-5.50) M/uL Hgb (12.0-15.0) g/dL Hct (36.0-48.0) % MCV (80-98) fL MCH (27-31) pg MCHC (32-36) % Plt Count (150-400) K/uL Neut % (Auto) (36-66) % Lymph % (Auto) (24-44) % [place] % (Auto) (2-6) % Eos % (Auto) (2-4) % Baso % (Auto) (0-1) % Sodium (140-148) mmol/L Potassium (3.6-5.2) mmol/L Chloride (100-108) mmol/L Carbon Dioxide (21-32) mmol/L Anion Gap (5.0-14.0) mmol/L BUN (7-18) mg/dL Creatinine (0.6-1.0) mg/dL Est Cr Clr Drug Dosing mL/min Estimated GFR (MDRD) (>60) Glucose (74-106) mg/dL Calcium (8.5-10.1) mg/dL Total Bilirubin (0.2-1.0) mg/dL AST (15-37) U/L ALT (12-78) U/L Alkaline Phosphatase (46-116) U/L Ammonia 52 H (11-32) umol/L Total Protein (6.4-8.2) g/dL Albumin (3.4-5.0) g/dL Globulin (2.3-3.5) g/dL Albumin/Globulin Ratio (1.2-2.2) Urine Color Yellow (YELLOW) Urine Appearance Clear (CLEAR) Urine pH 5.5 (5.0-8.0) Ur Specific [place] 1.020 (1.008-1.030) Urine Protein Negative (NEGATIVE) mg/dL Urine Glucose (UA) Negative (NEGATIVE) mg/dL Urine Ketones Negative (NEGATIVE) mg/dL Urine Occult Blood Negative (NEGATIVE) Urine Nitrite Negative (NEGATIVE) Urine Bilirubin Negative (NEGATIVE) Urine Urobilinogen 1.0 (0.2-1.0) EU/dL Ur Leukocyte Esterase Negative (NEGATIVE) Urine RBC 0-5 (0-5) Urine WBC 0-5 (0-5) Ur Epithelial Cells Few Amorphous Sediment Few Urine Bacteria Few Urine Mucus Not seen Urine Opiates Screen (NEGATIVE) Ur Oxycodone Screen (NEGATIVE) Urine Methadone Screen (NEGATIVE) Ur Propoxyphene Screen (NEGATIVE) Ur Barbiturates Screen (NEGATIVE) Ur Tricyclics Screen (NEGATIVE) Ur Phencyclidine Scrn (NEGATIVE) Ur Amphetamine Screen (NEGATIVE) U Methamphetamines Scrn (NEGATIVE) Urine MDMA Screen (NEGATIVE) U Benzodiazepines Scrn (NEGATIVE) U Cocaine Metab Screen (NEGATIVE) U Marijuana (THC) Screen (NEGATIVE) Ethyl Alcohol mg/dL Influenza Type A RNA Negative (NEGATIVE) RSV RNA (INAAT) Negative (NEGATIVE) Influenza Type B RNA Negative (NEGATIVE) SARS-CoV-2 RNA (EDGAR) Negative (NEGATIVE) 03/04/21 03/04/21 Range/Units 04:35 10:00 WBC (4.5-11.0) K/uL RBC (3.30-5.50) M/uL Hgb (12.0-15.0) g/dL Hct (36.0-48.0) % MCV (80-98) fL MCH (27-31) pg MCHC (32-36) % Plt Count (150-400) K/uL Neut % (Auto) (36-66) % Lymph % (Auto) (24-44) % [place] % (Auto) (2-6) % Eos % (Auto) (2-4) % Baso % (Auto) (0-1) % Sodium 120 L (140-148) mmol/L Potassium 3.9 (3.6-5.2) mmol/L Chloride 89 L (100-108) mmol/L Carbon Dioxide 23 (21-32) mmol/L Anion Gap 11.9 (5.0-14.0) mmol/L BUN 11 (7-18) mg/dL Creatinine 0.9 (0.6-1.0) mg/dL Est Cr Clr Drug Dosing 63.92 mL/min Estimated GFR (MDRD) > 60 (>60) Glucose 67 L (74-106) mg/dL Calcium 8.5 (8.5-10.1) mg/dL Total Bilirubin (0.2-1.0) mg/dL AST (15-37) U/L ALT (12-78) U/L Alkaline Phosphatase (46-116) U/L Ammonia (11-32) umol/L Total Protein (6.4-8.2) g/dL Albumin (3.4-5.0) g/dL Globulin (2.3-3.5) g/dL Albumin/Globulin Ratio (1.2-2.2) Urine Color (YELLOW) Urine Appearance (CLEAR) Urine pH (5.0-8.0) Ur Specific [place] (1.008-1.030) Urine Protein (NEGATIVE) mg/dL Urine Glucose (UA) (NEGATIVE) mg/dL Urine Ketones (NEGATIVE) mg/dL Urine Occult Blood (NEGATIVE) Urine Nitrite (NEGATIVE) Urine Bilirubin (NEGATIVE) Urine Urobilinogen (0.2-1.0) EU/dL Ur Leukocyte Esterase (NEGATIVE) Urine RBC (0-5) Urine WBC (0-5) Ur Epithelial Cells Amorphous Sediment Urine Bacteria Urine Mucus Urine Opiates Screen Negative (NEGATIVE) Ur Oxycodone Screen Presumptive positive H (NEGATIVE) Urine Methadone Screen Negative (NEGATIVE) Ur Propoxyphene Screen Negative (NEGATIVE) Ur Barbiturates Screen Negative (NEGATIVE) Ur Tricyclics Screen Negative (NEGATIVE) Ur Phencyclidine Scrn Negative (NEGATIVE) Ur Amphetamine Screen Negative (NEGATIVE) U Methamphetamines Scrn Negative (NEGATIVE) Urine MDMA Screen Negative (NEGATIVE) U Benzodiazepines Scrn Negative (NEGATIVE) U Cocaine Metab Screen Negative (NEGATIVE) U Marijuana (THC) Screen Presumptive positive H (NEGATIVE) Ethyl Alcohol mg/dL Influenza Type A RNA (NEGATIVE) RSV RNA (INAAT) (NEGATIVE) Influenza Type B RNA (NEGATIVE) SARS-CoV-2 RNA (EDGAR) (NEGATIVE) Result Diagrams: 03/04/21 03:41 03/04/21 10:00 Sepsis Event Note - Evaluation Sepsis Screening Result: Possible Sepsis Risk - Focused Exam Vital Signs: Vital Signs Temp Pulse Resp BP Pulse Ox 03/04/21 10:04 35.7 C L 95 18 116/71 99 03/04/21 06:53 35.6 C L 98 18 113/51 L 98 03/04/21 05:08 35.7 C L 105 H 16 110/71 100 03/04/21 04:10 100 03/04/21 03:03 106 H 16 121/65 100 - Problem List Review Problem List Initiated/Reviewed/Updated: Yes - My Orders Last 24 Hours: My Active Orders 03/04/21 07:36 Vaccine to be Administered/Admin Charge [RC] ASDIRECTED 03/04/21 09:00 Zinc Sulfate [Zincate] 220 mg PO DAILY 03/04/21 09:15 Citalopram [Celexa] 20 mg PO DAILY 03/04/21 09:30 Simethicone 125 mg PO Q4H 03/04/21 11:33 Urinary Catheter Assessment [RC] ASDIRECTED 03/04/21 11:45 Insert Buchanan Catheter [Insert Urinary Catheter] [OM.PC] Q24H Albumin Human [Albumin 25%] 25 gm in 100 ml IV Q6H Sodium Chloride 3% 500 ml IV ASDIRECTED 03/04/21 14:00 Dicyclomine [Bentyl] 10 mg PO TID Gabapentin [Neurontin] 600 mg PO TID 03/04/21 15:00 Furosemide [Lasix] 40 mg IVPUSH ONETIME ONE Spironolactone [Aldactone] 50 mg PO ONETIME ONE 03/04/21 18:00 BASIC METABOLIC PANEL,BMP [CHEM] Timed 03/04/21 21:00 Lactulose [Chronulac] 10 gm PO BID traZODone 50 mg PO BEDTIME 03/05/21 05:00 AMMONIA VENOUS [CHEM] Timed BASIC METABOLIC PANEL,BMP [CHEM] Timed CBC W/O DIFF,HEMOGRAM [HEME] Timed (1) 03/05/21 07:30 Pantoprazole [ProTONIX] 40 mg PO ACBREAKFAST 03/05/21 09:00 Cyanocobalamin (Vitamin B12) [Vitamin B12] 1,000 mcg SL DAILY Thiamine [Vitamin B-1] 100 mg PO DAILY 03/05/21 10:00 FLU Vacc [id number](6MOS UP)/PF [Fluzone Quad [id number] Syringe] 60 mcg IM .ONCE ONE 03/05/21 13:00 fentaNYL [Duragesic] 1 patch TOP Q72H - Plan Plan:: ASSESSMENT AND PLAN - End-stage liver disease with cirrhosis-patient did have recent work-up for liver transplant. I fear she is nearing the end of her disease with recurrent hospitalizations for fluid retention and hyponatremia as well as persistent elevations in her ammonia level. She does not have significant ascites at this time despite her feeling full. She does have impressive lower extremity edema. Albumin is only 2.3. -Albumin every 6 hours -Trial of furosemide and spironolactone this afternoon -Wrap both lower legs to help mobilize fluid -Ultrasound to look for significant ascites did not reveal enough for paracentesis -Further discussions with patient and family about concerns that her disease is nearing the end Hyponatremia-she has chronic hyponatremia but not usually this low. She appears to be hypervolemic at this time though she has not had a great response to diuretics so far. -Supplement albumin -Diuresis as above -Recheck sodium this afternoon Chronic pain-stable and overall fairly well controlled. -Continue home medication Maintenance issues - -DVT prophylaxis-mechanical compression -GI prophylaxis-PPI -[id number] -Buchanan catheter-plan to place for strict intake and output monitoring during diuresis Disposition -I anticipate discharge home after the hospital stay Jim Correia M.D.
[2021-03-04] MEDS ORDERED: Sodium Chloride 3% 500 ML IV SCH (11:45)
[2021-03-04] MEDS ORDERED: Lactulose Soln 10 GM/15 ML 15 ML UD Cup PO ONE (12:15)
[2021-03-04] MEDS: VERIFY FENTANYL PATCH TOP SCH ×2 (12:38→20:25)
[2021-03-04] MEDS: Gabapentin 300 MG Cap PO SCH ×2 (13:51→20:25)
[2021-03-04] MEDS: Dicyclomine 10 MG Cap PO SCH ×2 (13:51→20:25)
[2021-03-04] MEDS ORDERED: Simethicone 125 MG Tab.Chew PO PRN (14:56)
[2021-03-04] MEDS ORDERED: Spironolactone 25 MG Tab PO ONE (15:00)
[2021-03-04] MEDS ORDERED: Lactulose Soln 10 GM/15 ML 15 ML UD Cup PO SCH (21:00)
[2021-03-04] MEDS: traZODone 50 MG Tab PO SCH ×2 (21:44→21:46)
[2021-03-05] MEDS: Pantoprazole 40 MG Tab.CR PO SCH (07:45)
[2021-03-05] MEDS: Spironolactone 25 MG Tab PO SCH ×2 (09:18→20:23)
[2021-03-05] MEDS: Furosemide 40 MG/4 ML VIAL IVPUSH SCH ×2 (09:19→20:23)
[2021-03-05] MEDS: Lactulose Soln 10 GM/15 ML 15 ML UD Cup PO SCH ×3 (09:19→20:23)
[2021-03-05] MEDS: Dicyclomine 10 MG Cap PO SCH ×3 (09:19→20:23)
[2021-03-05] MEDS: Gabapentin 300 MG Cap PO SCH ×3 (09:19→20:23)
[2021-03-05] MEDS: Zinc Sulfate 220 MG Cap PO SCH (09:19)
[2021-03-05] MEDS: VERIFY FENTANYL PATCH TOP SCH ×2 (09:20→20:34)
[2021-03-05] MEDS: Cyanocobalamin (Vitamin B12) 1,000 MCG Tab SL SCH (09:20)
[2021-03-05] MEDS: Citalopram 20 MG Tab PO SCH (09:20)
[2021-03-05] MEDS: Thiamine 100 MG Tab PO SCH (09:20)
[2021-03-05] MEDS: fentaNYL 25 MCG/HR Transdermal Patch TOP SCH (13:21)
--- NOTE | 2021-03-05 13:51 | PCM.PN ---
- General Info Date of Service: 03/05/21 Subjective Update: No acute events overnight. Patient is more alert and interactive today. She does not report any abdominal pain today. Lower extremity edema is a little bit better. She does have some discomfort in her legs because of the swelling. Ammonia level is stable in the low 50s. Vital signs have been stable. No fevers. Hemoglobin was down to 7 today without obvious evidence for bleeding. No hematemesis, melena or hematochezia. Functional Status: Reports: Pain Controlled, Tolerating Diet - Review of Systems Cardiovascular: Reports: Edema Gastrointestinal: Denies: Abdominal Pain - Patient Data Vitals - Most Recent: Last Vital Signs Temp 36.1 C 03/05/21 12:05 Pulse 106 H 03/05/21 12:05 Resp 16 03/05/21 11:35 BP 121/69 03/05/21 12:05 Pulse Ox 96 03/05/21 07:42 Weight - Most Recent: 85.6 kg I&O - Last 24 Hours: Intake & Output 03/04/21 03/05/21 03/05/21 22:59 06:59 14:59 Intake Total 2280 200 240 Output Total 2150 550 1450 Balance 130 -350 -1210 Lab Results Last 24 Hours: Laboratory Results - last 24 hr 03/04/21 03/05/21 03/05/21 Range/Units 18:00 04:41 04:41 WBC 4.4 L (4.5-11.0) K/uL RBC 2.01 L (3.30-5.50) M/uL Hgb 7.0 L D (12.0-15.0) g/dL Hct 20.7 L (36.0-48.0) % MCV 103 H (80-98) fL MCH 35 H (27-31) pg MCHC 34 (32-36) % Plt Count 105 L (150-400) K/uL Sodium 124 L 127 L (140-148) mmol/L Potassium 4.0 3.8 (3.6-5.2) mmol/L Chloride 91 L 94 L (100-108) mmol/L Carbon Dioxide 25 25 (21-32) mmol/L Anion Gap 12.0 11.8 (5.0-14.0) mmol/L BUN 10 10 (7-18) mg/dL Creatinine 0.8 0.7 (0.6-1.0) mg/dL Est Cr Clr Drug Dosing 71.91 82.19 mL/min Estimated GFR (MDRD) > 60 > 60 (>60) Glucose 88 76 (74-106) mg/dL Calcium 9.0 8.8 (8.5-10.1) mg/dL Ammonia (11-32) umol/L Blood Type Gel Antibody Screen Crossmatch 03/05/21 03/05/21 Range/Units 04:41 04:41 WBC (4.5-11.0) K/uL RBC (3.30-5.50) M/uL Hgb (12.0-15.0) g/dL Hct (36.0-48.0) % MCV (80-98) fL MCH (27-31) pg MCHC (32-36) % Plt Count (150-400) K/uL Sodium (140-148) mmol/L Potassium (3.6-5.2) mmol/L Chloride (100-108) mmol/L Carbon Dioxide (21-32) mmol/L Anion Gap (5.0-14.0) mmol/L BUN (7-18) mg/dL Creatinine (0.6-1.0) mg/dL Est Cr Clr Drug Dosing mL/min Estimated GFR (MDRD) (>60) Glucose (74-106) mg/dL Calcium (8.5-10.1) mg/dL Ammonia 57 H (11-32) umol/L Blood Type O POSITIVE Gel Antibody Screen Negative Crossmatch See Detail Med Orders - Current: Current Medications Citalopram Hydrobromide (Citalopram 20 Mg Tab) 20 mg PO DAILY [facility] Last Admin: 03/05/21 09:20 Dose: 20 mg Documented by: Cyanocobalamin (Cyanocobalamin (Vitamin B12) 1,000 Mcg Tab) 1,000 mcg SL DAILY [facility] Last Admin: 03/05/21 09:20 Dose: 1,000 mcg Documented by: Dicyclomine HCl (Dicyclomine 10 Mg Cap) 10 mg PO TID [facility] Last Admin: 03/05/21 13:22 Dose: 10 mg Documented by: Fentanyl (Fentanyl 25 Mcg/Hr Transdermal Patch) 25 mcg TOP Q72H [facility] Last Admin: 03/05/21 13:21 Dose: 25 mcg Documented by: Furosemide (Furosemide 40 Mg/4 Ml Vial) 40 mg IVPUSH BID [facility] Last Admin: 03/05/21 09:19 Dose: 40 mg Documented by: Gabapentin (Gabapentin 300 Mg Cap) 600 mg PO TID [facility] Last Admin: 03/05/21 13:22 Dose: 600 mg Documented by: Promethazine HCl 6.25 mg/ (Sodium Chloride) 50.25 mls @ 200 mls/hr IV Q6H PRN PRN Reason: Nausea/Vomiting Lactulose (Lactulose Soln 10 Gm/15 Ml 15 Ml Ud Cup) 10 gm PO TID [facility] Last Admin: 03/05/21 13:22 Dose: 10 gm Documented by: Morphine Sulfate (Morphine 2 Mg/Ml Syringe) 2 mg IVPUSH Q2H PRN PRN Reason: Pain (severe 7-10) Verify Fentanyl (Patch) 0 each TOP BID [facility] Last Admin: 03/05/21 09:20 Dose: Not Given Documented by: Oxycodone HCl (Oxycodone 5 Mg Tab) 5 mg PO Q4H PRN PRN Reason: Pain (moderate 4-6) Pantoprazole Sodium (Pantoprazole 40 Mg Tab.Cr) 40 mg PO ACBREAKFAST [facility] Last Admin: 03/05/21 07:45 Dose: 40 mg Documented by: Promethazine HCl (Promethazine 25 Mg Tab) 25 mg PO Q6H PRN PRN Reason: Nausea able to take PO Simethicone (Simethicone 125 Mg Tab.Chew) 125 mg PO Q4H PRN PRN Reason: Abdominal Pain Spironolactone (Spironolactone 25 Mg Tab) 50 mg PO BID [facility] Last Admin: 03/05/21 09:18 Dose: 50 mg Documented by: Thiamine HCl (Thiamine 100 Mg Tab) 100 mg PO DAILY [facility] Last Admin: 03/05/21 09:20 Dose: 100 mg Documented by: Trazodone HCl (Trazodone 50 Mg Tab) 50 mg PO BEDTIME [facility] Last Admin: 03/04/21 21:46 Dose: Not Given Documented by: Zinc Sulfate (Zinc Sulfate 220 Mg Cap) 220 mg PO DAILY [facility] Last Admin: 03/05/21 09:19 Dose: 220 mg Documented by: Discontinued Medications Furosemide (Furosemide 40 Mg/4 Ml Vial) 40 mg IVPUSH ONETIME ONE Stop: 03/04/21 03:30 Last Admin: 03/04/21 03:45 Dose: 40 mg Documented by: Furosemide (Furosemide 40 Mg/4 Ml Vial) 40 mg IVPUSH ONETIME ONE Stop: 03/04/21 04:35 Last Admin: 03/04/21 09:14 Dose: 40 mg Documented by: Furosemide (Furosemide 40 Mg/4 Ml Vial) 40 mg IVPUSH ONETIME ONE Stop: 03/04/21 10:01 Furosemide (Furosemide 40 Mg/4 Ml Vial) 40 mg IVPUSH ONETIME ONE Stop: 03/04/21 15:01 Last Admin: 03/04/21 13:59 Dose: 40 mg Documented by: Albumin Human 25 gm/ Premix 100 mls @ 25 mls/hr IV ONETIME ONE Stop: 03/04/21 08:31 Last Admin: 03/04/21 05:40 Dose: 25 mls/hr Documented by: Albumin Human (Albumin 25%) 25 gm in 100 mls @ 25 mls/hr IV Q6H [facility] Stop: 03/05/21 10:29 Last Admin: 03/05/21 05:45 Dose: 25 mls/hr Documented by: Sodium Chloride (Sodium Chloride 3%) 500 mls @ 50 mls/hr IV ASDIRECTED [facility] Stop: 03/04/21 12:46 Last Admin: 03/04/21 12:38 Dose: 50 mls/hr Documented by: Influenza Virus Vaccine (Flu Vacc [id number](6mos Up)/Pf 60 Mcg/0.5 Ml Syringe) 60 mcg IM .ONCE ONE Stop: 03/05/21 10:01 Last Admin: 03/05/21 09:21 Dose: 60 mcg Documented by: Lactulose (Lactulose Soln 10 Gm/15 Ml 15 Ml Ud Cup) 10 gm PO BID [facility] Last Admin: 03/04/21 20:24 Dose: 10 gm Documented by: Lactulose (Lactulose Soln 10 Gm/15 Ml 15 Ml Ud Cup) 10 gm PO ONETIME ONE Stop: 03/04/21 12:16 Last Admin: 03/04/21 12:38 Dose: 10 gm Documented by: Pantoprazole Sodium (Pantoprazole 40 Mg Vial) 40 mg IV ONETIME ONE Stop: 03/04/21 04:07 Last Admin: 03/04/21 05:36 Dose: 40 mg Documented by: Simethicone (Simethicone 125 Mg Tab.Chew) 125 mg PO Q4H [facility] Last Admin: 03/04/21 12:39 Dose: Not Given Documented by: Spironolactone (Spironolactone 25 Mg Tab) 100 mg PO BID [facility] Spironolactone (Spironolactone 25 Mg Tab) 50 mg PO ONETIME ONE Stop: 03/04/21 15:01 Last Admin: 03/04/21 14:00 Dose: 50 mg Documented by: - Exam Quality Assessment: No: Supplemental Oxygen Urinary Catheter Total Time: 0Days 8Hours General: Alert, Oriented, Cooperative, No Acute Distress Lungs: Normal Respiratory Effort. No: Wheezing GI/Abdominal Exam: Soft, No Distention Extremities: Pedal Edema, Other (both legs wrapped with LUIS from toes to the knee ). No: Increased Warmth Skin: Warm, Dry Psy/Mental Status: Alert, Normal Affect - Patient Data Lab Results Last 24 hrs: Laboratory Results - last 24 hr 03/04/21 03/05/21 03/05/21 Range/Units 18:00 04:41 04:41 WBC 4.4 L (4.5-11.0) K/uL RBC 2.01 L (3.30-5.50) M/uL Hgb 7.0 L D (12.0-15.0) g/dL Hct 20.7 L (36.0-48.0) % MCV 103 H (80-98) fL MCH 35 H (27-31) pg MCHC 34 (32-36) % Plt Count 105 L (150-400) K/uL Sodium 124 L 127 L (140-148) mmol/L Potassium 4.0 3.8 (3.6-5.2) mmol/L Chloride 91 L 94 L (100-108) mmol/L Carbon Dioxide 25 25 (21-32) mmol/L Anion Gap 12.0 11.8 (5.0-14.0) mmol/L BUN 10 10 (7-18) mg/dL Creatinine 0.8 0.7 (0.6-1.0) mg/dL Est Cr Clr Drug Dosing 71.91 82.19 mL/min Estimated GFR (MDRD) > 60 > 60 (>60) Glucose 88 76 (74-106) mg/dL Calcium 9.0 8.8 (8.5-10.1) mg/dL Ammonia (11-32) umol/L Blood Type Gel Antibody Screen Crossmatch 03/05/21 03/05/21 Range/Units 04:41 04:41 WBC (4.5-11.0) K/uL RBC (3.30-5.50) M/uL Hgb (12.0-15.0) g/dL Hct (36.0-48.0) % MCV (80-98) fL MCH (27-31) pg MCHC (32-36) % Plt Count (150-400) K/uL Sodium (140-148) mmol/L Potassium (3.6-5.2) mmol/L Chloride (100-108) mmol/L Carbon Dioxide (21-32) mmol/L Anion Gap (5.0-14.0) mmol/L BUN (7-18) mg/dL Creatinine (0.6-1.0) mg/dL Est Cr Clr Drug Dosing mL/min Estimated GFR (MDRD) (>60) Glucose (74-106) mg/dL Calcium (8.5-10.1) mg/dL Ammonia 57 H (11-32) umol/L Blood Type O POSITIVE Gel Antibody Screen Negative Crossmatch See Detail Result Diagrams: 03/05/21 04:41 03/05/21 04:41 Sepsis Event Note - Evaluation Sepsis Screening Result: No Definite Risk - Focused Exam Vital Signs: Vital Signs Temp Temp Pulse Resp BP Pulse Ox 03/05/21 12:05 36.1 C 106 H 121/69 03/05/21 11:35 36.1 C 108 H 16 94/54 L 03/05/21 11:20 36.1 C 107 H 16 97/52 L 03/05/21 11:05 36.1 C 98 16 95/52 L 03/05/21 10:50 36.0 C L 98 16 99/51 L 03/05/21 07:42 36.2 C 105 H 16 120/70 96 03/05/21 03:04 36.2 C 88 16 111/59 L 93 L - Problem List Review Problem List Initiated/Reviewed/Updated: Yes - My Orders Last 24 Hours: My Active Orders 03/04/21 14:00 Dicyclomine [Bentyl] 10 mg PO TID Gabapentin [Neurontin] 600 mg PO TID 03/04/21 14:56 Simethicone 125 mg PO Q4H PRN 03/04/21 Dinner Fluid Restriction [DIET] 03/04/21 21:00 traZODone 50 mg PO BEDTIME 03/05/21 04:41 RED BLOOD CELLS LP [BBK] Routine TYPE AND SCREEN [BBK] Routine 03/05/21 07:30 Pantoprazole [ProTONIX] 40 mg PO ACBREAKFAST 03/05/21 09:00 Cyanocobalamin (Vitamin B12) [Vitamin B12] 1,000 mcg SL DAILY Furosemide [Lasix] 40 mg IVPUSH BID Lactulose [Chronulac] 10 gm PO TID Spironolactone [Aldactone] 50 mg PO BID Thiamine [Vitamin B-1] 100 mg PO DAILY 03/05/21 09:12 Transfuse Red Blood Cells [COMM] Routine 03/05/21 13:00 fentaNYL [Duragesic] 25 mcg TOP Q72H 03/06/21 05:00 CBC W/O DIFF,HEMOGRAM [HEME] Timed (1) COMPREHENSIVE METABOLIC PN,CMP [CHEM] Timed FERRITIN [CHEM] Timed INR,PT,PROTHROMBIN TIME [COAG] Timed IRON/TIBC [CHEM] Timed MAGNESIUM [CHEM] Timed 03/06/21 11:45 Insert Buchanan Catheter [Insert Urinary Catheter] [OM.PC] Q24H - Plan Plan:: ASSESSMENT AND PLAN - End-stage liver disease with cirrhosis-not currently on the transplant list but she is in contact with the transplant team and may become eligible again. Multiple admissions for fluid issues and fortunately no significant kidney issues at this point. Patient is aware that she is at the end stage of her disease and does remain hopeful that she can become eligible for transplant consideration again. Responding well to diuretics so far. Labs are stable other that her hemoglobin. -Albumin every 6 hours again today -furosemide and spironolactone twice daily -Wrap both lower legs to help mobilize fluid Hyponatremia-slowly improving with diuresis. -Supplement albumin -Diuresis as above -Recheck sodium in the morning Chronic pain-stable and overall fairly well controlled. -Continue home medication Maintenance issues - -DVT prophylaxis-mechanical compression -GI prophylaxis-PPI -[id number] -Buchanan catheter-plan to place for strict intake and output monitoring during diuresis, anticipate removal tomorrow Disposition -I anticipate discharge home after the hospital stay Jim Correia M.D.
[2021-03-05] MEDS: traZODone 50 MG Tab PO SCH (22:26)
[2021-03-06] MEDS: Pantoprazole 40 MG Tab.CR PO SCH (07:14)
[2021-03-06] MEDS: Spironolactone 25 MG Tab PO SCH ×2 (08:17→20:36)
[2021-03-06] MEDS: Dicyclomine 10 MG Cap PO SCH ×3 (08:17→20:37)
[2021-03-06] MEDS: Cyanocobalamin (Vitamin B12) 1,000 MCG Tab SL SCH (08:17)
[2021-03-06] MEDS: Gabapentin 300 MG Cap PO SCH ×3 (08:17→20:36)
[2021-03-06] MEDS: Furosemide 40 MG/4 ML VIAL IVPUSH SCH ×2 (08:18→20:37)
[2021-03-06] MEDS: Zinc Sulfate 220 MG Cap PO SCH (08:18)
[2021-03-06] MEDS: Citalopram 20 MG Tab PO SCH (08:18)
[2021-03-06] MEDS: Lactulose Soln 10 GM/15 ML 15 ML UD Cup PO SCH ×3 (08:18→20:37)
[2021-03-06] MEDS: VERIFY FENTANYL PATCH TOP SCH ×2 (08:19→20:37)
[2021-03-06] MEDS: Thiamine 100 MG Tab PO SCH (08:19)
[2021-03-06] MEDS ORDERED: Magnesium Sulfate/Water 2 GM in Premix Bag 1 BAG IV ONE (09:00)
[2021-03-06] MEDS: Potassium Chloride 20 MEQ Tab.ER PO SCH ×2 (10:26→20:36)
--- NOTE | 2021-03-06 10:45 | PCM.PN ---
- General Info Date of Service: 03/06/21 Subjective Update: No acute events overnight. Ongoing response to diuresis has been excellent. Lower extremity edema is improving but is far from resolved at this point. She does not have any shortness of breath. No complaints of abdominal pain. Appetite has been good. Hemoglobin improved some after transfusion yesterday. Strength is good. Potassium is a little bit low. Kidney function stable. Functional Status: Reports: Pain Controlled, Tolerating Diet - Review of Systems General: Denies: Fever Cardiovascular: Reports: Edema Gastrointestinal: Denies: Abdominal Pain - Patient Data Vitals - Most Recent: Last Vital Signs Temp 36.3 C 03/06/21 07:36 Pulse 113 H 03/06/21 07:36 Resp 18 03/06/21 07:36 BP 98/66 03/06/21 07:36 Pulse Ox 100 03/06/21 07:36 Weight - Most Recent: 80.6 kg I&O - Last 24 Hours: Intake & Output 03/05/21 03/06/21 03/06/21 22:59 06:59 14:59 Intake Total 1660 140 830 Output Total 3600 2125 Balance -1939 -1984 830 Lab Results Last 24 Hours: Laboratory Results - last 24 hr 03/05/21 03/06/21 03/06/21 Range/Units 04:41 04:37 04:37 WBC 3.1 L (4.5-11.0) K/uL RBC 2.16 L (3.30-5.50) M/uL Hgb 7.3 L (12.0-15.0) g/dL Hct 21.8 L (36.0-48.0) % MCV 101 H (80-98) fL MCH 34 H (27-31) pg MCHC 34 (32-36) % Plt Count 100 L (150-400) K/uL PT 19.7 H (9.2-10.6) sec INR 2.0 Sodium (140-148) mmol/L Potassium (3.6-5.2) mmol/L Chloride (100-108) mmol/L Carbon Dioxide (21-32) mmol/L Anion Gap (5.0-14.0) mmol/L BUN (7-18) mg/dL Creatinine (0.6-1.0) mg/dL Est Cr Clr Drug Dosing mL/min Estimated GFR (MDRD) (>60) Glucose (74-106) mg/dL Calcium (8.5-10.1) mg/dL Magnesium (1.8-2.4) mg/dL Iron (50-170) ug/dL TIBC (250-450) ug/dl % Saturation (20-55) % Ferritin (8-388) ng/ml Total Bilirubin (0.2-1.0) mg/dL AST (15-37) U/L ALT (12-78) U/L Alkaline Phosphatase (46-116) U/L Total Protein (6.4-8.2) g/dL Albumin (3.4-5.0) g/dL Globulin (2.3-3.5) g/dL Albumin/Globulin Ratio (1.2-2.2) Crossmatch See Detail 03/06/21 03/06/21 Range/Units 04:37 04:37 WBC (4.5-11.0) K/uL RBC (3.30-5.50) M/uL Hgb (12.0-15.0) g/dL Hct (36.0-48.0) % MCV (80-98) fL MCH (27-31) pg MCHC (32-36) % Plt Count (150-400) K/uL PT (9.2-10.6) sec INR Sodium 134 L (140-148) mmol/L Potassium 3.4 L (3.6-5.2) mmol/L Chloride 99 L (100-108) mmol/L Carbon Dioxide 27 (21-32) mmol/L Anion Gap 11.4 (5.0-14.0) mmol/L BUN 8 (7-18) mg/dL Creatinine 0.7 (0.6-1.0) mg/dL Est Cr Clr Drug Dosing 82.19 mL/min Estimated GFR (MDRD) > 60 (>60) Glucose 67 L (74-106) mg/dL Calcium 9.3 (8.5-10.1) mg/dL Magnesium 1.7 L (1.8-2.4) mg/dL Iron 60 (50-170) ug/dL TIBC 57 L (250-450) ug/dl % Saturation 105 H (20-55) % Ferritin 185 (8-388) ng/ml Total Bilirubin 3.4 H (0.2-1.0) mg/dL AST 27 (15-37) U/L ALT 27 (12-78) U/L Alkaline Phosphatase 94 (46-116) U/L Total Protein 6.0 L (6.4-8.2) g/dL Albumin 3.4 (3.4-5.0) g/dL Globulin 2.6 (2.3-3.5) g/dL Albumin/Globulin Ratio 1.3 (1.2-2.2) Crossmatch Med Orders - Current: Current Medications Citalopram Hydrobromide (Citalopram 20 Mg Tab) 20 mg PO DAILY [facility] Last Admin: 03/06/21 08:18 Dose: 20 mg Documented by: Cyanocobalamin (Cyanocobalamin (Vitamin B12) 1,000 Mcg Tab) 1,000 mcg SL DAILY [facility] Last Admin: 03/06/21 08:17 Dose: 1,000 mcg Documented by: Dicyclomine HCl (Dicyclomine 10 Mg Cap) 10 mg PO TID [facility] Last Admin: 03/06/21 08:17 Dose: 10 mg Documented by: Fentanyl (Fentanyl 25 Mcg/Hr Transdermal Patch) 25 mcg TOP Q72H [facility] Last Admin: 03/05/21 13:21 Dose: 25 mcg Documented by: Furosemide (Furosemide 40 Mg/4 Ml Vial) 40 mg IVPUSH BID [facility] Last Admin: 03/06/21 08:18 Dose: 40 mg Documented by: Gabapentin (Gabapentin 300 Mg Cap) 600 mg PO TID [facility] Last Admin: 03/06/21 08:17 Dose: 600 mg Documented by: Promethazine HCl 6.25 mg/ (Sodium Chloride) 50.25 mls @ 200 mls/hr IV Q6H PRN PRN Reason: Nausea/Vomiting Magnesium Sulfate 2 gm/ Premix 50 mls @ 25 mls/hr IV ONETIME ONE Stop: 03/06/21 10:59 Last Admin: 03/06/21 10:27 Dose: 25 mls/hr Documented by: Lactulose (Lactulose Soln 10 Gm/15 Ml 15 Ml Ud Cup) 10 gm PO TID [facility] Last Admin: 03/06/21 08:18 Dose: 10 gm Documented by: Morphine Sulfate (Morphine 2 Mg/Ml Syringe) 2 mg IVPUSH Q2H PRN PRN Reason: Pain (severe 7-10) Verify Fentanyl (Patch) 0 each TOP BID [facility] Last Admin: 03/06/21 08:19 Dose: Not Given Documented by: Oxycodone HCl (Oxycodone 5 Mg Tab) 5 mg PO Q4H PRN PRN Reason: Pain (moderate 4-6) Pantoprazole Sodium (Pantoprazole 40 Mg Tab.Cr) 40 mg PO ACBREAKFAST [facility] Last Admin: 03/06/21 07:14 Dose: 40 mg Documented by: Potassium Chloride (Potassium Chloride 20 Meq Tab.Er) 40 meq PO BID [facility] Last Admin: 03/06/21 10:26 Dose: 40 meq Documented by: Promethazine HCl (Promethazine 25 Mg Tab) 25 mg PO Q6H PRN PRN Reason: Nausea able to take PO Simethicone (Simethicone 125 Mg Tab.Chew) 125 mg PO Q4H PRN PRN Reason: Abdominal Pain Spironolactone (Spironolactone 25 Mg Tab) 50 mg PO BID [facility] Last Admin: 03/06/21 08:17 Dose: 50 mg Documented by: Thiamine HCl (Thiamine 100 Mg Tab) 100 mg PO DAILY [facility] Last Admin: 03/06/21 08:19 Dose: 100 mg Documented by: Trazodone HCl (Trazodone 50 Mg Tab) 50 mg PO BEDTIME [facility] Last Admin: 03/05/21 22:26 Dose: 50 mg Documented by: Zinc Sulfate (Zinc Sulfate 220 Mg Cap) 220 mg PO DAILY [facility] Last Admin: 03/06/21 08:18 Dose: 220 mg Documented by: Discontinued Medications Furosemide (Furosemide 40 Mg/4 Ml Vial) 40 mg IVPUSH ONETIME ONE Stop: 03/04/21 03:30 Last Admin: 03/04/21 03:45 Dose: 40 mg Documented by: Furosemide (Furosemide 40 Mg/4 Ml Vial) 40 mg IVPUSH ONETIME ONE Stop: 03/04/21 04:35 Last Admin: 03/04/21 09:14 Dose: 40 mg Documented by: Furosemide (Furosemide 40 Mg/4 Ml Vial) 40 mg IVPUSH ONETIME ONE Stop: 03/04/21 10:01 Furosemide (Furosemide 40 Mg/4 Ml Vial) 40 mg IVPUSH ONETIME ONE Stop: 03/04/21 15:01 Last Admin: 03/04/21 13:59 Dose: 40 mg Documented by: Albumin Human 25 gm/ Premix 100 mls @ 25 mls/hr IV ONETIME ONE Stop: 03/04/21 08:31 Last Admin: 03/04/21 05:40 Dose: 25 mls/hr Documented by: Albumin Human (Albumin 25%) 25 gm in 100 mls @ 25 mls/hr IV Q6H [facility] Stop: 03/05/21 10:29 Last Admin: 03/05/21 05:45 Dose: 25 mls/hr Documented by: Sodium Chloride (Sodium Chloride 3%) 500 mls @ 50 mls/hr IV ASDIRECTED [facility] Stop: 03/04/21 12:46 Last Admin: 03/04/21 12:38 Dose: 50 mls/hr Documented by: Albumin Human (Albumin 25%) 25 gm in 100 mls @ 25 mls/hr IV Q6H [facility] Stop: 03/06/21 07:59 Last Admin: 03/06/21 04:27 Dose: 25 mls/hr Documented by: Influenza Virus Vaccine (Flu Vacc [id number](6mos Up)/Pf 60 Mcg/0.5 Ml Syringe) 60 mcg IM .ONCE ONE Stop: 03/05/21 10:01 Last Admin: 03/05/21 09:21 Dose: 60 mcg Documented by: Lactulose (Lactulose Soln 10 Gm/15 Ml 15 Ml Ud Cup) 10 gm PO BID [facility] Last Admin: 03/04/21 20:24 Dose: 10 gm Documented by: Lactulose (Lactulose Soln 10 Gm/15 Ml 15 Ml Ud Cup) 10 gm PO ONETIME ONE Stop: 03/04/21 12:16 Last Admin: 03/04/21 12:38 Dose: 10 gm Documented by: Pantoprazole Sodium (Pantoprazole 40 Mg Vial) 40 mg IV ONETIME ONE Stop: 03/04/21 04:07 Last Admin: 03/04/21 05:36 Dose: 40 mg Documented by: Simethicone (Simethicone 125 Mg Tab.Chew) 125 mg PO Q4H [facility] Last Admin: 03/04/21 12:39 Dose: Not Given Documented by: Spironolactone (Spironolactone 25 Mg Tab) 100 mg PO BID [facility] Spironolactone (Spironolactone 25 Mg Tab) 50 mg PO ONETIME ONE Stop: 03/04/21 15:01 Last Admin: 03/04/21 14:00 Dose: 50 mg Documented by: - Exam Quality Assessment: No: Supplemental Oxygen Urinary Catheter Total Time: 1Days 17Hours General: Alert, Oriented, Cooperative, No Acute Distress Lungs: Normal Respiratory Effort. No: Wheezing GI/Abdominal Exam: Soft, No Distention Extremities: Pedal Edema, Other (both legs wrapped from feet to below the knee ). No: Increased Warmth Skin: Warm, Dry Psy/Mental Status: Alert, Normal Affect - Patient Data Lab Results Last 24 hrs: Laboratory Results - last 24 hr 03/05/21 03/06/21 03/06/21 Range/Units 04:41 04:37 04:37 WBC 3.1 L (4.5-11.0) K/uL RBC 2.16 L (3.30-5.50) M/uL Hgb 7.3 L (12.0-15.0) g/dL Hct 21.8 L (36.0-48.0) % MCV 101 H (80-98) fL MCH 34 H (27-31) pg MCHC 34 (32-36) % Plt Count 100 L (150-400) K/uL PT 19.7 H (9.2-10.6) sec INR 2.0 Sodium (140-148) mmol/L Potassium (3.6-5.2) mmol/L Chloride (100-108) mmol/L Carbon Dioxide (21-32) mmol/L Anion Gap (5.0-14.0) mmol/L BUN (7-18) mg/dL Creatinine (0.6-1.0) mg/dL Est Cr Clr Drug Dosing mL/min Estimated GFR (MDRD) (>60) Glucose (74-106) mg/dL Calcium (8.5-10.1) mg/dL Magnesium (1.8-2.4) mg/dL Iron (50-170) ug/dL TIBC (250-450) ug/dl % Saturation (20-55) % Ferritin (8-388) ng/ml Total Bilirubin (0.2-1.0) mg/dL AST (15-37) U/L ALT (12-78) U/L Alkaline Phosphatase (46-116) U/L Total Protein (6.4-8.2) g/dL Albumin (3.4-5.0) g/dL Globulin (2.3-3.5) g/dL Albumin/Globulin Ratio (1.2-2.2) Crossmatch See Detail 03/06/21 03/06/21 Range/Units 04:37 04:37 WBC (4.5-11.0) K/uL RBC (3.30-5.50) M/uL Hgb (12.0-15.0) g/dL Hct (36.0-48.0) % MCV (80-98) fL MCH (27-31) pg MCHC (32-36) % Plt Count (150-400) K/uL PT (9.2-10.6) sec INR Sodium 134 L (140-148) mmol/L Potassium 3.4 L (3.6-5.2) mmol/L Chloride 99 L (100-108) mmol/L Carbon Dioxide 27 (21-32) mmol/L Anion Gap 11.4 (5.0-14.0) mmol/L BUN 8 (7-18) mg/dL Creatinine 0.7 (0.6-1.0) mg/dL Est Cr Clr Drug Dosing 82.19 mL/min Estimated GFR (MDRD) > 60 (>60) Glucose 67 L (74-106) mg/dL Calcium 9.3 (8.5-10.1) mg/dL Magnesium 1.7 L (1.8-2.4) mg/dL Iron 60 (50-170) ug/dL TIBC 57 L (250-450) ug/dl % Saturation 105 H (20-55) % Ferritin 185 (8-388) ng/ml Total Bilirubin 3.4 H (0.2-1.0) mg/dL AST 27 (15-37) U/L ALT 27 (12-78) U/L Alkaline Phosphatase 94 (46-116) U/L Total Protein 6.0 L (6.4-8.2) g/dL Albumin 3.4 (3.4-5.0) g/dL Globulin 2.6 (2.3-3.5) g/dL Albumin/Globulin Ratio 1.3 (1.2-2.2) Crossmatch Result Diagrams: 03/06/21 04:37 03/06/21 04:37 Sepsis Event Note - Evaluation Sepsis Screening Result: Sepsis Risk - Focused Exam Vital Signs: Vital Signs Temp Pulse Resp BP Pulse Ox Pulse Ox 03/06/21 07:36 36.3 C 113 H 18 98/66 100 03/06/21 04:00 36.5 C 102 H 16 109/63 96 99 03/05/21 23:01 36.1 C 102 H - Problem List Review Problem List Initiated/Reviewed/Updated: Yes - My Orders Last 24 Hours: My Active Orders 03/05/21 13:00 [id number] [Duragesic] 25 mcg TOP Q72H 03/06/21 09:00 Magnesium Sulfate/Water [Magnesium Sulfate in Water 2 GM/50 ML] 2 gm Premix Bag 1 bag IV ONETIME Potassium Chloride [Klor-Con M20] 40 meq PO BID 03/06/21 11:45 Insert Buchanan Catheter [Insert Urinary Catheter] [OM.PC] Q24H 03/07/21 05:00 BASIC METABOLIC PANEL,BMP [CHEM] Timed CBC W/O DIFF,HEMOGRAM [HEME] Timed (1) - Plan Plan:: ASSESSMENT AND PLAN - End-stage liver disease with cirrhosis-not currently on the transplant list but she is in contact with the transplant team and may become eligible again. Responding well to diuresis but still has a fair amount of fluid on board. -Albumin every 6 hours again today -furosemide and spironolactone twice daily -Wrap both lower legs to help mobilize fluid -Continue catheter again today Hyponatremia-improving with diuresis. -Supplement albumin -Diuresis as above -Recheck sodium in the morning Chronic pain-stable and overall fairly well controlled. -Continue home medication Maintenance issues - -DVT prophylaxis-mechanical compression -GI prophylaxis-PPI -[id number] -Buchanan catheter-plan to place for strict intake and output monitoring during diuresis, anticipate removal tomorrow Disposition -I anticipate discharge home after the hospital stay Jim Correia M.D.
[2021-03-06] MEDS: traZODone 50 MG Tab PO SCH (22:41)
[2021-03-07] MEDS: Pantoprazole 40 MG Tab.CR PO SCH (07:15)
--- NOTE | 2021-03-07 07:34 | PCM.SN.2 ---
- Free Text/Narrative Note: Telephone call at 0605 O: hemoglobin 6.7 decreased from 7.3 on 03/05/2021 vital signs 98.1-96-16 B/P 105/47 o2 sat 92% A: anemia P: type and cross for 2 units of PRBC, give one unit now, recheck hemoglobin at noon.
[2021-03-07] MEDS: Spironolactone 25 MG Tab PO SCH ×2 (09:39→21:25)
[2021-03-07] MEDS: Citalopram 20 MG Tab PO SCH (09:40)
[2021-03-07] MEDS: Dicyclomine 10 MG Cap PO SCH ×3 (09:40→21:26)
[2021-03-07] MEDS: Potassium Chloride 20 MEQ Tab.ER PO SCH ×2 (09:40→21:26)
[2021-03-07] MEDS: Lactulose Soln 10 GM/15 ML 15 ML UD Cup PO SCH ×3 (09:40→21:26)
[2021-03-07] MEDS: Gabapentin 300 MG Cap PO SCH ×3 (09:41→21:26)
[2021-03-07] MEDS: VERIFY FENTANYL PATCH TOP SCH ×2 (09:42→21:31)
[2021-03-07] MEDS: Cyanocobalamin (Vitamin B12) 1,000 MCG Tab SL SCH (09:42)
[2021-03-07] MEDS: Thiamine 100 MG Tab PO SCH (09:42)
[2021-03-07] MEDS: Zinc Sulfate 220 MG Cap PO SCH (09:43)
[2021-03-07] MEDS: Furosemide 40 MG/4 ML VIAL IVPUSH SCH ×2 (11:04→21:26)
--- NOTE | 2021-03-07 11:49 | PCM.PN ---
- General Info Date of Service: 03/07/21 Subjective Update: No acute events overnight. She does have some mild pain on the top of both feet where her skin has cracked open from the swelling. No abdominal pain or nausea. No fevers. Edema is steadily improving. Tolerating Corey wraps on both lower legs. Appetite is good. Strength improving. Hoping her mom will be here to visit today. Functional Status: Reports: Pain Controlled, Tolerating Diet - Review of Systems General: Reports: Weakness Cardiovascular: Reports: Edema - Patient Data Vitals - Most Recent: Last Vital Signs Temp 36.1 C 03/07/21 11:03 Pulse 102 H 03/07/21 11:03 Resp 16 03/07/21 11:03 BP 109/57 L 03/07/21 11:03 Pulse Ox 100 03/07/21 11:03 Weight - Most Recent: 79.8 kg I&O - Last 24 Hours: Intake & Output 03/06/21 03/07/21 03/07/21 22:59 06:59 14:59 Intake Total 580 250 420 Output Total 350 1550 125 Balance 230 -1300 295 Lab Results Last 24 Hours: Laboratory Results - last 24 hr 03/05/21 03/07/21 03/07/21 Range/Units 04:41 05:50 05:50 WBC 2.6 L (4.5-11.0) K/uL RBC 1.98 L (3.30-5.50) M/uL Hgb 6.7 L* (12.0-15.0) g/dL Hct 20.4 L (36.0-48.0) % MCV 103 H (80-98) fL MCH 34 H (27-31) pg MCHC 33 (32-36) % Plt Count 91 L (150-400) K/uL Sodium 136 L (140-148) mmol/L Potassium 4.0 (3.6-5.2) mmol/L Chloride 101 (100-108) mmol/L Carbon Dioxide 28 (21-32) mmol/L Anion Gap 11.0 (5.0-14.0) mmol/L BUN 6 L (7-18) mg/dL Creatinine 0.8 (0.6-1.0) mg/dL Est Cr Clr Drug Dosing 71.91 mL/min Estimated GFR (MDRD) > 60 (>60) Glucose 68 L (74-106) mg/dL Calcium 9.3 (8.5-10.1) mg/dL Blood Type O POSITIVE Gel Antibody Screen Negative Crossmatch See Detail Med Orders - Current: Current Medications Citalopram Hydrobromide (Citalopram 20 Mg Tab) 20 mg PO DAILY [facility] Last Admin: 03/07/21 09:40 Dose: 20 mg Documented by: Cyanocobalamin (Cyanocobalamin (Vitamin B12) 1,000 Mcg Tab) 1,000 mcg SL DAILY [facility] Last Admin: 03/07/21 09:42 Dose: 1,000 mcg Documented by: Dicyclomine HCl (Dicyclomine 10 Mg Cap) 10 mg PO TID [facility] Last Admin: 03/07/21 09:40 Dose: 10 mg Documented by: Fentanyl (Fentanyl 25 Mcg/Hr Transdermal Patch) 25 mcg TOP Q72H [facility] Last Admin: 03/05/21 13:21 Dose: 25 mcg Documented by: Furosemide (Furosemide 40 Mg/4 Ml Vial) 40 mg IVPUSH BID [facility] Last Admin: 03/07/21 11:04 Dose: 40 mg Documented by: Gabapentin (Gabapentin 300 Mg Cap) 600 mg PO TID [facility] Last Admin: 03/07/21 09:41 Dose: 600 mg Documented by: Promethazine HCl 6.25 mg/ (Sodium Chloride) 50.25 mls @ 200 mls/hr IV Q6H PRN PRN Reason: Nausea/Vomiting Lactulose (Lactulose Soln 10 Gm/15 Ml 15 Ml Ud Cup) 10 gm PO TID [facility] Last Admin: 03/07/21 09:40 Dose: 10 gm Documented by: Morphine Sulfate (Morphine 2 Mg/Ml Syringe) 2 mg IVPUSH Q2H PRN PRN Reason: Pain (severe 7-10) Verify Fentanyl (Patch) 0 each TOP BID [facility] Last Admin: 03/07/21 09:42 Dose: 1 each Documented by: Oxycodone HCl (Oxycodone 5 Mg Tab) 5 mg PO Q4H PRN PRN Reason: Pain (moderate 4-6) Pantoprazole Sodium (Pantoprazole 40 Mg Tab.Cr) 40 mg PO ACBREAKFAST [facility] Last Admin: 03/07/21 07:15 Dose: 40 mg Documented by: Potassium Chloride (Potassium Chloride 20 Meq Tab.Er) 40 meq PO BID [facility] Last Admin: 03/07/21 09:40 Dose: 40 meq Documented by: Promethazine HCl (Promethazine 25 Mg Tab) 25 mg PO Q6H PRN PRN Reason: Nausea able to take PO Simethicone (Simethicone 125 Mg Tab.Chew) 125 mg PO Q4H PRN PRN Reason: Abdominal Pain Spironolactone (Spironolactone 25 Mg Tab) 50 mg PO BID [facility] Last Admin: 03/07/21 09:39 Dose: 50 mg Documented by: Thiamine HCl (Thiamine 100 Mg Tab) 100 mg PO DAILY [facility] Last Admin: 03/07/21 09:42 Dose: 100 mg Documented by: Trazodone HCl (Trazodone 50 Mg Tab) 50 mg PO BEDTIME [facility] Last Admin: 03/06/21 22:41 Dose: 50 mg Documented by: Zinc Sulfate (Zinc Sulfate 220 Mg Cap) 220 mg PO DAILY [facility] Last Admin: 03/07/21 09:43 Dose: 220 mg Documented by: Discontinued Medications Furosemide (Furosemide 40 Mg/4 Ml Vial) 40 mg IVPUSH ONETIME ONE Stop: 03/04/21 03:30 Last Admin: 03/04/21 03:45 Dose: 40 mg Documented by: Furosemide (Furosemide 40 Mg/4 Ml Vial) 40 mg IVPUSH ONETIME ONE Stop: 03/04/21 04:35 Last Admin: 03/04/21 09:14 Dose: 40 mg Documented by: Furosemide (Furosemide 40 Mg/4 Ml Vial) 40 mg IVPUSH ONETIME ONE Stop: 03/04/21 10:01 Furosemide (Furosemide 40 Mg/4 Ml Vial) 40 mg IVPUSH ONETIME ONE Stop: 03/04/21 15:01 Last Admin: 03/04/21 13:59 Dose: 40 mg Documented by: Albumin Human 25 gm/ Premix 100 mls @ 25 mls/hr IV ONETIME ONE Stop: 03/04/21 08:31 Last Admin: 03/04/21 05:40 Dose: 25 mls/hr Documented by: Albumin Human (Albumin 25%) 25 gm in 100 mls @ 25 mls/hr IV Q6H [facility] Stop: 03/05/21 10:29 Last Admin: 03/05/21 05:45 Dose: 25 mls/hr Documented by: Sodium Chloride (Sodium Chloride 3%) 500 mls @ 50 mls/hr IV ASDIRECTED [facility] Stop: 03/04/21 12:46 Last Admin: 03/04/21 12:38 Dose: 50 mls/hr Documented by: Albumin Human (Albumin 25%) 25 gm in 100 mls @ 25 mls/hr IV Q6H [facility] Stop: 03/06/21 07:59 Last Admin: 03/06/21 04:27 Dose: 25 mls/hr Documented by: Magnesium Sulfate 2 gm/ Premix 50 mls @ 25 mls/hr IV ONETIME ONE Stop: 03/06/21 10:59 Last Admin: 03/06/21 10:27 Dose: 25 mls/hr Documented by: Albumin Human (Albumin 25%) 25 gm in 100 mls @ 25 mls/hr IV Q6H [facility] Stop: 03/07/21 05:59 Last Admin: 03/07/21 01:03 Dose: 25 mls/hr Documented by: Influenza Virus Vaccine (Flu Vacc [id number](6mos Up)/Pf 60 Mcg/0.5 Ml Syringe) 60 mcg IM .ONCE ONE Stop: 03/05/21 10:01 Last Admin: 03/05/21 09:21 Dose: 60 mcg Documented by: Lactulose (Lactulose Soln 10 Gm/15 Ml 15 Ml Ud Cup) 10 gm PO BID [facility] Last Admin: 03/04/21 20:24 Dose: 10 gm Documented by: Lactulose (Lactulose Soln 10 Gm/15 Ml 15 Ml Ud Cup) 10 gm PO ONETIME ONE Stop: 03/04/21 12:16 Last Admin: 03/04/21 12:38 Dose: 10 gm Documented by: Pantoprazole Sodium (Pantoprazole 40 Mg Vial) 40 mg IV ONETIME ONE Stop: 03/04/21 04:07 Last Admin: 03/04/21 05:36 Dose: 40 mg Documented by: Simethicone (Simethicone 125 Mg Tab.Chew) 125 mg PO Q4H [facility] Last Admin: 03/04/21 12:39 Dose: Not Given Documented by: Spironolactone (Spironolactone 25 Mg Tab) 100 mg PO BID [facility] Spironolactone (Spironolactone 25 Mg Tab) 50 mg PO ONETIME ONE Stop: 03/04/21 15:01 Last Admin: 03/04/21 14:00 Dose: 50 mg Documented by: - Exam Quality Assessment: No: Supplemental Oxygen Urinary Catheter Total Time: 2Days 20Hours General: Alert, Oriented, Cooperative, No Acute Distress Lungs: Normal Respiratory Effort GI/Abdominal Exam: Soft, No Distention Extremities: Pedal Edema. No: Increased Warmth Skin: Warm, Dry Psy/Mental Status: Alert, Normal Affect - Patient Data Lab Results Last 24 hrs: Laboratory Results - last 24 hr 03/05/21 03/07/21 03/07/21 Range/Units 04:41 05:50 05:50 WBC 2.6 L (4.5-11.0) K/uL RBC 1.98 L (3.30-5.50) M/uL Hgb 6.7 L* (12.0-15.0) g/dL Hct 20.4 L (36.0-48.0) % MCV 103 H (80-98) fL MCH 34 H (27-31) pg MCHC 33 (32-36) % Plt Count 91 L (150-400) K/uL Sodium 136 L (140-148) mmol/L Potassium 4.0 (3.6-5.2) mmol/L Chloride 101 (100-108) mmol/L Carbon Dioxide 28 (21-32) mmol/L Anion Gap 11.0 (5.0-14.0) mmol/L BUN 6 L (7-18) mg/dL Creatinine 0.8 (0.6-1.0) mg/dL Est Cr Clr Drug Dosing 71.91 mL/min Estimated GFR (MDRD) > 60 (>60) Glucose 68 L (74-106) mg/dL Calcium 9.3 (8.5-10.1) mg/dL Blood Type O POSITIVE Gel Antibody Screen Negative Crossmatch See Detail Result Diagrams: 03/07/21 05:50 03/07/21 05:50 Sepsis Event Note - Evaluation Sepsis Screening Result: Sepsis Risk - Focused Exam Vital Signs: Vital Signs Temp Temp Pulse Resp BP Pulse Ox Pulse Ox 03/07/21 11:03 36.1 C 102 H 16 109/57 L 100 03/07/21 10:30 36.1 C 99 16 106/63 100 03/07/21 10:00 36.1 C 99 16 102/84 100 03/07/21 09:30 35.9 C L 98 16 107/64 100 03/07/21 09:15 36.1 C 100 16 100/65 100 03/07/21 09:00 36.4 C 102 H 16 97/71 99 03/07/21 08:53 36.1 C 98 16 97/54 L 100 03/07/21 07:16 36.2 C 105 H 16 100/65 100 03/07/21 04:00 94 L 03/07/21 02:38 36.7 C 96 16 105/47 L 92 L - Problem List Review Problem List Initiated/Reviewed/Updated: Yes - My Orders Last 24 Hours: My Active Orders 03/07/21 11:47 Phytonadione [Mephyton] 5 mg PO ONETIME ONE 03/07/21 14:00 HGB [HEMOGLOBIN] [HEME] Timed 03/08/21 05:00 CBC W/O DIFF,HEMOGRAM [HEME] Timed (1) COMPREHENSIVE METABOLIC PN,CMP [CHEM] Timed 03/08/21 11:45 Insert Buchanan Catheter [Insert Urinary Catheter] [OM.PC] Q24H - Plan Plan:: ASSESSMENT AND PLAN - End-stage liver disease with cirrhosis-not currently on the transplant list but she is in contact with the transplant team and may become eligible again. Responding well to diuresis and steadily improving. I think we are getting nicolas rly close to the end of our aggressive diuresis. -Hold on albumin today -furosemide and spironolactone twice daily -Wrap both lower legs to help mobilize fluid -Continue catheter again today -Dose of vitamin K to see if we can help with her INR of 2 -Lactulose 3 times daily Hyponatremia-normalized with diuresis. -Supplement albumin -Diuresis as above -Recheck sodium in the morning Chronic pain-stable and overall fairly well controlled. -Continue home medication Maintenance issues - -DVT prophylaxis-mechanical compression -GI prophylaxis-PPI -[id number] -Buchanan catheter-plan to place for strict intake and output monitoring during diuresis, anticipate removal tomorrow if diuresis complete Disposition -I anticipate discharge home after the hospital stay Jim Correia M.D.
[2021-03-07] MEDS ORDERED: Phytonadione 5 MG Tab PO ONE (12:30)
[2021-03-07] MEDS: traZODone 50 MG Tab PO SCH (21:27)
[2021-03-08] MEDS: Pantoprazole 40 MG Tab.CR PO SCH (07:29)
[2021-03-08] MEDS: Lactulose Soln 10 GM/15 ML 15 ML UD Cup PO SCH ×3 (09:18→21:34)
[2021-03-08] MEDS: Potassium Chloride 20 MEQ Tab.ER PO SCH ×2 (09:18→21:34)
[2021-03-08] MEDS: Gabapentin 300 MG Cap PO SCH ×3 (09:19→21:34)
[2021-03-08] MEDS: Spironolactone 25 MG Tab PO SCH ×2 (09:19→21:33)
[2021-03-08] MEDS: Citalopram 20 MG Tab PO SCH (09:19)
[2021-03-08] MEDS: Zinc Sulfate 220 MG Cap PO SCH (09:19)
[2021-03-08] MEDS: Cyanocobalamin (Vitamin B12) 1,000 MCG Tab SL SCH (09:19)
[2021-03-08] MEDS: Thiamine 100 MG Tab PO SCH (09:19)
[2021-03-08] MEDS: Furosemide 40 MG/4 ML VIAL IVPUSH SCH ×2 (09:19→21:34)
[2021-03-08] MEDS: Dicyclomine 10 MG Cap PO SCH ×3 (09:19→21:34)
[2021-03-08] MEDS: VERIFY FENTANYL PATCH TOP SCH ×2 (10:16→21:33)
--- NOTE | 2021-03-08 11:32 | PCM.PN ---
- General Info Date of Service: 03/08/21 Subjective Update: No acute events overnight. Hemoglobin is slightly better again today with no evidence for bleeding. Lower extremity edema slowly improving. Kidney function stable. Appetite good. No significant abdominal pain. No fevers. Got to visit with her mom yesterday. Functional Status: Reports: Pain Controlled, Tolerating Diet - Review of Systems Cardiovascular: Reports: Edema - Patient Data Vitals - Most Recent: Last Vital Signs Temp 36.5 C 03/08/21 10:43 Pulse 114 H 03/08/21 10:43 Resp 18 03/08/21 10:43 BP 110/58 L 03/08/21 10:43 Pulse Ox 98 03/08/21 10:43 Weight - Most Recent: 77.8 kg I&O - Last 24 Hours: Intake & Output 03/07/21 03/08/21 03/08/21 22:59 06:59 14:59 Intake Total 550 595 Output Total 340 1930 675 Balance 210 -1930 -80 Lab Results Last 24 Hours: Laboratory Results - last 24 hr 03/07/21 03/08/21 03/08/21 Range/Units 14:00 05:46 05:46 WBC 2.8 L (4.5-11.0) K/uL RBC 2.56 L (3.30-5.50) M/uL Hgb 8.1 L 8.6 L (12.0-15.0) g/dL Hct 26.1 L (36.0-48.0) % MCV 102 H (80-98) fL MCH 34 H (27-31) pg MCHC 33 (32-36) % Plt Count 102 L (150-400) K/uL Sodium 134 L (140-148) mmol/L Potassium 4.1 (3.6-5.2) mmol/L Chloride 98 L (100-108) mmol/L Carbon Dioxide 28 (21-32) mmol/L Anion Gap 12.1 (5.0-14.0) mmol/L BUN 7 (7-18) mg/dL Creatinine 0.8 (0.6-1.0) mg/dL Est Cr Clr Drug Dosing 71.91 mL/min Estimated GFR (MDRD) > 60 (>60) Glucose 92 (74-106) mg/dL Calcium 9.7 (8.5-10.1) mg/dL Total Bilirubin 3.1 H (0.2-1.0) mg/dL AST 36 (15-37) U/L ALT 25 (12-78) U/L Alkaline Phosphatase 101 (46-116) U/L Total Protein 6.7 (6.4-8.2) g/dL Albumin 3.9 (3.4-5.0) g/dL Globulin 2.8 (2.3-3.5) g/dL Albumin/Globulin Ratio 1.4 (1.2-2.2) Med Orders - Current: Current Medications Citalopram Hydrobromide (Citalopram 20 Mg Tab) 20 mg PO DAILY [facility] Last Admin: 03/08/21 09:19 Dose: 20 mg Documented by: Cyanocobalamin (Cyanocobalamin (Vitamin B12) 1,000 Mcg Tab) 1,000 mcg SL DAILY [facility] Last Admin: 03/08/21 09:19 Dose: 1,000 mcg Documented by: Dicyclomine HCl (Dicyclomine 10 Mg Cap) 10 mg PO TID [facility] Last Admin: 03/08/21 09:19 Dose: 10 mg Documented by: Fentanyl (Fentanyl 25 Mcg/Hr Transdermal Patch) 25 mcg TOP Q72H [facility] Last Admin: 03/05/21 13:21 Dose: 25 mcg Documented by: Furosemide (Furosemide 40 Mg/4 Ml Vial) 40 mg IVPUSH BID [facility] Stop: 03/08/21 23:00 Last Admin: 03/08/21 09:19 Dose: 40 mg Documented by: Gabapentin (Gabapentin 300 Mg Cap) 600 mg PO TID [facility] Last Admin: 03/08/21 09:19 Dose: 600 mg Documented by: Promethazine HCl 6.25 mg/ (Sodium Chloride) 50.25 mls @ 200 mls/hr IV Q6H PRN PRN Reason: Nausea/Vomiting Lactulose (Lactulose Soln 10 Gm/15 Ml 15 Ml Ud Cup) 10 gm PO TID [facility] Last Admin: 03/08/21 09:18 Dose: 10 gm Documented by: Morphine Sulfate (Morphine 2 Mg/Ml Syringe) 2 mg IVPUSH Q2H PRN PRN Reason: Pain (severe 7-10) Verify Fentanyl (Patch) 0 each TOP BID [facility] Last Admin: 03/08/21 10:16 Dose: Not Given Documented by: Oxycodone HCl (Oxycodone 5 Mg Tab) 5 mg PO Q4H PRN PRN Reason: Pain (moderate 4-6) Pantoprazole Sodium (Pantoprazole 40 Mg Tab.Cr) 40 mg PO ACBREAKFAST [facility] Last Admin: 03/08/21 07:29 Dose: 40 mg Documented by: Potassium Chloride (Potassium Chloride 20 Meq Tab.Er) 40 meq PO BID [facility] Last Admin: 03/08/21 09:18 Dose: 40 meq Documented by: Promethazine HCl (Promethazine 25 Mg Tab) 25 mg PO Q6H PRN PRN Reason: Nausea able to take PO Simethicone (Simethicone 125 Mg Tab.Chew) 125 mg PO Q4H PRN PRN Reason: Abdominal Pain Spironolactone (Spironolactone 25 Mg Tab) 50 mg PO BID [facility] Last Admin: 03/08/21 09:19 Dose: 50 mg Documented by: Thiamine HCl (Thiamine 100 Mg Tab) 100 mg PO DAILY [facility] Last Admin: 03/08/21 09:19 Dose: 100 mg Documented by: Trazodone HCl (Trazodone 50 Mg Tab) 50 mg PO BEDTIME [facility] Last Admin: 03/07/21 21:27 Dose: 50 mg Documented by: Zinc Sulfate (Zinc Sulfate 220 Mg Cap) 220 mg PO DAILY [facility] Last Admin: 03/08/21 09:19 Dose: 220 mg Documented by: Discontinued Medications Furosemide (Furosemide 40 Mg/4 Ml Vial) 40 mg IVPUSH ONETIME ONE Stop: 03/04/21 03:30 Last Admin: 03/04/21 03:45 Dose: 40 mg Documented by: Furosemide (Furosemide 40 Mg/4 Ml Vial) 40 mg IVPUSH ONETIME ONE Stop: 03/04/21 04:35 Last Admin: 03/04/21 09:14 Dose: 40 mg Documented by: Furosemide (Furosemide 40 Mg/4 Ml Vial) 40 mg IVPUSH ONETIME ONE Stop: 03/04/21 10:01 Furosemide (Furosemide 40 Mg/4 Ml Vial) 40 mg IVPUSH ONETIME ONE Stop: 03/04/21 15:01 Last Admin: 03/04/21 13:59 Dose: 40 mg Documented by: Albumin Human 25 gm/ Premix 100 mls @ 25 mls/hr IV ONETIME ONE Stop: 03/04/21 08:31 Last Admin: 03/04/21 05:40 Dose: 25 mls/hr Documented by: Albumin Human (Albumin 25%) 25 gm in 100 mls @ 25 mls/hr IV Q6H [facility] Stop: 03/05/21 10:29 Last Admin: 03/05/21 05:45 Dose: 25 mls/hr Documented by: Sodium Chloride (Sodium Chloride 3%) 500 mls @ 50 mls/hr IV ASDIRECTED [facility] Stop: 03/04/21 12:46 Last Admin: 03/04/21 12:38 Dose: 50 mls/hr Documented by: Albumin Human (Albumin 25%) 25 gm in 100 mls @ 25 mls/hr IV Q6H [facility] Stop: 03/06/21 07:59 Last Admin: 03/06/21 04:27 Dose: 25 mls/hr Documented by: Magnesium Sulfate 2 gm/ Premix 50 mls @ 25 mls/hr IV ONETIME ONE Stop: 03/06/21 10:59 Last Admin: 03/06/21 10:27 Dose: 25 mls/hr Documented by: Albumin Human (Albumin 25%) 25 gm in 100 mls @ 25 mls/hr IV Q6H [facility] Stop: 03/07/21 05:59 Last Admin: 03/07/21 01:03 Dose: 25 mls/hr Documented by: Influenza Virus Vaccine (Flu Vacc [id number](6mos Up)/Pf 60 Mcg/0.5 Ml Syringe) 60 mcg IM .ONCE ONE Stop: 03/05/21 10:01 Last Admin: 03/05/21 09:21 Dose: 60 mcg Documented by: Lactulose (Lactulose Soln 10 Gm/15 Ml 15 Ml Ud Cup) 10 gm PO BID [facility] Last Admin: 03/04/21 20:24 Dose: 10 gm Documented by: Lactulose (Lactulose Soln 10 Gm/15 Ml 15 Ml Ud Cup) 10 gm PO ONETIME ONE Stop: 03/04/21 12:16 Last Admin: 03/04/21 12:38 Dose: 10 gm Documented by: Pantoprazole Sodium (Pantoprazole 40 Mg Vial) 40 mg IV ONETIME ONE Stop: 03/04/21 04:07 Last Admin: 03/04/21 05:36 Dose: 40 mg Documented by: Phytonadione (Phytonadione 5 Mg Tab) 5 mg PO ONETIME ONE Stop: 03/07/21 12:31 Last Admin: 03/07/21 12:45 Dose: 5 mg Documented by: Simethicone (Simethicone 125 Mg Tab.Chew) 125 mg PO Q4H [facility] Last Admin: 03/04/21 12:39 Dose: Not Given Documented by: Spironolactone (Spironolactone 25 Mg Tab) 100 mg PO BID [facility] Spironolactone (Spironolactone 25 Mg Tab) 50 mg PO ONETIME ONE Stop: 03/04/21 15:01 Last Admin: 03/04/21 14:00 Dose: 50 mg Documented by: - Exam Quality Assessment: No: Supplemental Oxygen Urinary Catheter Total Time: 3Days 19Hours General: Alert, Oriented, Cooperative, No Acute Distress Lungs: Normal Respiratory Effort. No: Wheezing GI/Abdominal Exam: Soft, No Distention Extremities: Pedal Edema. No: Increased Warmth Skin: Warm, Dry Psy/Mental Status: Alert, Normal Affect - Patient Data Lab Results Last 24 hrs: Laboratory Results - last 24 hr 03/07/21 03/08/21 03/08/21 Range/Units 14:00 05:46 05:46 WBC 2.8 L (4.5-11.0) K/uL RBC 2.56 L (3.30-5.50) M/uL Hgb 8.1 L 8.6 L (12.0-15.0) g/dL Hct 26.1 L (36.0-48.0) % MCV 102 H (80-98) fL MCH 34 H (27-31) pg MCHC 33 (32-36) % Plt Count 102 L (150-400) K/uL Sodium 134 L (140-148) mmol/L Potassium 4.1 (3.6-5.2) mmol/L Chloride 98 L (100-108) mmol/L Carbon Dioxide 28 (21-32) mmol/L Anion Gap 12.1 (5.0-14.0) mmol/L BUN 7 (7-18) mg/dL Creatinine 0.8 (0.6-1.0) mg/dL Est Cr Clr Drug Dosing 71.91 mL/min Estimated GFR (MDRD) > 60 (>60) Glucose 92 (74-106) mg/dL Calcium 9.7 (8.5-10.1) mg/dL Total Bilirubin 3.1 H (0.2-1.0) mg/dL AST 36 (15-37) U/L ALT 25 (12-78) U/L Alkaline Phosphatase 101 (46-116) U/L Total Protein 6.7 (6.4-8.2) g/dL Albumin 3.9 (3.4-5.0) g/dL Globulin 2.8 (2.3-3.5) g/dL Albumin/Globulin Ratio 1.4 (1.2-2.2) Result Diagrams: 03/08/21 05:46 03/08/21 05:46 Sepsis Event Note - Evaluation Sepsis Screening Result: Severe Sepsis Risk - Focused Exam Vital Signs: Vital Signs Temp Pulse Resp BP BP Pulse Ox 03/08/21 10:43 36.5 C 114 H 18 110/58 L 98 03/08/21 07:28 36.7 C 110 H 16 117/66 100 03/08/21 02:28 36.7 C 76 16 119/74 99 - Problem List Review Problem List Initiated/Reviewed/Updated: Yes - My Orders Last 24 Hours: My Active Orders 03/08/21 11:45 Insert Buchanan Catheter [Insert Urinary Catheter] [OM.PC] Q24H 03/09/21 05:00 BASIC METABOLIC PANEL,BMP [CHEM] Timed CBC W/O DIFF,HEMOGRAM [HEME] Timed (1) - Plan Plan:: ASSESSMENT AND PLAN - End-stage liver disease with cirrhosis-not currently on the transplant list but she is in contact with the transplant team and may become eligible again. Responding well to diuresis and steadily improving. Probably at the end of aggressive diuresis after today. -Hold on albumin today -furosemide and spironolactone twice daily, reassess IV versus oral tomorrow morning -Wrap both lower legs to help mobilize fluid -Continue catheter again today, plan to remove tomorrow -Lactulose 3 times daily -Outpatient gastroenterology follow-up Hypokalemia-improved with supplementation. Hyponatremia-normalized with diuresis. -Supplement albumin -Diuresis as above -Recheck sodium in the morning Chronic pain-stable and overall fairly well controlled. -Continue home medication Maintenance issues - -DVT prophylaxis-mechanical compression -GI prophylaxis-PPI -[id number] -Buchanan catheter-plan to place for strict intake and output monitoring during diuresis, this will be removed tomorrow after IV diuresis complete. Disposition -I anticipate discharge home after the hospital stay Jim Correia M.D.
[2021-03-08] MEDS: fentaNYL 25 MCG/HR Transdermal Patch TOP SCH (12:14)
[2021-03-08] MEDS: traZODone 50 MG Tab PO SCH (21:34)
[2021-03-09] MEDS: Promethazine 25 MG Tab PO PRN (00:01)
[2021-03-09] MEDS: Pantoprazole 40 MG Tab.CR PO SCH (07:43)
--- NOTE | 2021-03-09 08:43 | PCM.PN ---
- General Info Date of Service: 03/09/21 Subjective Update: No acute events overnight. Edema is slowly improving. She is concerned about redness on top of her feet as well as persistent swelling. No significant pain in her feet. She has not had any fevers. No abdominal pain or nausea. Appetite good. Strength improving. Kidney function stable. Functional Status: Reports: Pain Controlled, Tolerating Diet - Review of Systems Cardiovascular: Reports: Edema Musculoskeletal: Reports: Foot Pain (bilateral ) - Patient Data Vitals - Most Recent: Last Vital Signs Temp 36.0 C L 03/09/21 07:33 Pulse 109 H 03/09/21 07:33 Resp 16 03/09/21 07:33 BP 117/70 03/09/21 07:33 Pulse Ox 99 03/09/21 07:33 Weight - Most Recent: 78.2 kg I&O - Last 24 Hours: Intake & Output 03/08/21 03/09/21 03/09/21 22:59 06:59 14:59 Intake Total 150 1220 Output Total 1210 3325 Balance -1060 -2105 Lab Results Last 24 Hours: Laboratory Results - last 24 hr 03/09/21 03/09/21 Range/Units 05:00 05:00 WBC 3.3 L (4.5-11.0) K/uL RBC 2.58 L (3.30-5.50) M/uL Hgb 8.9 L (12.0-15.0) g/dL Hct 26.4 L (36.0-48.0) % MCV 102 H (80-98) fL MCH 35 H (27-31) pg MCHC 34 (32-36) % Plt Count 99 L (150-400) K/uL Sodium 136 L (140-148) mmol/L Potassium 4.8 (3.6-5.2) mmol/L Chloride 99 L (100-108) mmol/L Carbon Dioxide 31 (21-32) mmol/L Anion Gap 10.8 (5.0-14.0) mmol/L BUN 9 (7-18) mg/dL Creatinine 0.8 (0.6-1.0) mg/dL Est Cr Clr Drug Dosing 71.91 mL/min Estimated GFR (MDRD) > 60 (>60) Glucose 80 (74-106) mg/dL Calcium 10.0 (8.5-10.1) mg/dL Med Orders - Current: Current Medications Citalopram Hydrobromide (Citalopram 20 Mg Tab) 20 mg PO DAILY [facility] Last Admin: 03/08/21 09:19 Dose: 20 mg Documented by: Cyanocobalamin (Cyanocobalamin (Vitamin B12) 1,000 Mcg Tab) 1,000 mcg SL DAILY [facility] Last Admin: 03/08/21 09:19 Dose: 1,000 mcg Documented by: Dicyclomine HCl (Dicyclomine 10 Mg Cap) 10 mg PO TID [facility] Last Admin: 03/08/21 21:34 Dose: 10 mg Documented by: Fentanyl (Fentanyl 25 Mcg/Hr Transdermal Patch) 25 mcg TOP Q72H [facility] Last Admin: 03/08/21 12:14 Dose: 25 mcg Documented by: Gabapentin (Gabapentin 300 Mg Cap) 600 mg PO TID [facility] Last Admin: 03/08/21 21:34 Dose: 600 mg Documented by: Promethazine HCl 6.25 mg/ (Sodium Chloride) 50.25 mls @ 200 mls/hr IV Q6H PRN PRN Reason: Nausea/Vomiting Lactulose (Lactulose Soln 10 Gm/15 Ml 15 Ml Ud Cup) 10 gm PO TID [facility] Last Admin: 03/08/21 21:34 Dose: 10 gm Documented by: Morphine Sulfate (Morphine 2 Mg/Ml Syringe) 2 mg IVPUSH Q2H PRN PRN Reason: Pain (severe 7-10) Verify Fentanyl (Patch) 0 each TOP BID [facility] Last Admin: 03/08/21 21:33 Dose: Not Given Documented by: Oxycodone HCl (Oxycodone 5 Mg Tab) 5 mg PO Q4H PRN PRN Reason: Pain (moderate 4-6) Pantoprazole Sodium (Pantoprazole 40 Mg Tab.Cr) 40 mg PO ACBREAKFAST [facility] Last Admin: 03/09/21 07:43 Dose: 40 mg Documented by: Potassium Chloride (Potassium Chloride 20 Meq Tab.Er) 40 meq PO BID [facility] Last Admin: 03/08/21 21:34 Dose: 40 meq Documented by: Promethazine HCl (Promethazine 25 Mg Tab) 25 mg PO Q6H PRN PRN Reason: Nausea able to take PO Last Admin: 03/09/21 00:01 Dose: 25 mg Documented by: Simethicone (Simethicone 125 Mg Tab.Chew) 125 mg PO Q4H PRN PRN Reason: Abdominal Pain Spironolactone (Spironolactone 25 Mg Tab) 50 mg PO BID [facility] Last Admin: 03/08/21 21:33 Dose: 50 mg Documented by: Thiamine HCl (Thiamine 100 Mg Tab) 100 mg PO DAILY [facility] Last Admin: 03/08/21 09:19 Dose: 100 mg Documented by: Trazodone HCl (Trazodone 50 Mg Tab) 50 mg PO BEDTIME [facility] Last Admin: 03/08/21 21:34 Dose: 50 mg Documented by: Zinc Sulfate (Zinc Sulfate 220 Mg Cap) 220 mg PO DAILY [facility] Last Admin: 03/08/21 09:19 Dose: 220 mg Documented by: Discontinued Medications Furosemide (Furosemide 40 Mg/4 Ml Vial) 40 mg IVPUSH ONETIME ONE Stop: 03/04/21 03:30 Last Admin: 03/04/21 03:45 Dose: 40 mg Documented by: Furosemide (Furosemide 40 Mg/4 Ml Vial) 40 mg IVPUSH ONETIME ONE Stop: 03/04/21 04:35 Last Admin: 03/04/21 09:14 Dose: 40 mg Documented by: Furosemide (Furosemide 40 Mg/4 Ml Vial) 40 mg IVPUSH ONETIME ONE Stop: 03/04/21 10:01 Furosemide (Furosemide 40 Mg/4 Ml Vial) 40 mg IVPUSH ONETIME ONE Stop: 03/04/21 15:01 Last Admin: 03/04/21 13:59 Dose: 40 mg Documented by: Furosemide (Furosemide 40 Mg/4 Ml Vial) 40 mg IVPUSH BID [facility] Stop: 03/08/21 23:00 Last Admin: 03/08/21 21:34 Dose: 40 mg Documented by: Albumin Human 25 gm/ Premix 100 mls @ 25 mls/hr IV ONETIME ONE Stop: 03/04/21 08:31 Last Admin: 03/04/21 05:40 Dose: 25 mls/hr Documented by: Albumin Human (Albumin 25%) 25 gm in 100 mls @ 25 mls/hr IV Q6H [facility] Stop: 03/05/21 10:29 Last Admin: 03/05/21 05:45 Dose: 25 mls/hr Documented by: Sodium Chloride (Sodium Chloride 3%) 500 mls @ 50 mls/hr IV ASDIRECTED [facility] Stop: 03/04/21 12:46 Last Admin: 03/04/21 12:38 Dose: 50 mls/hr Documented by: Albumin Human (Albumin 25%) 25 gm in 100 mls @ 25 mls/hr IV Q6H [facility] Stop: 03/06/21 07:59 Last Admin: 03/06/21 04:27 Dose: 25 mls/hr Documented by: Magnesium Sulfate 2 gm/ Premix 50 mls @ 25 mls/hr IV ONETIME ONE Stop: 03/06/21 10:59 Last Admin: 03/06/21 10:27 Dose: 25 mls/hr Documented by: Albumin Human (Albumin 25%) 25 gm in 100 mls @ 25 mls/hr IV Q6H [facility] Stop: 03/07/21 05:59 Last Admin: 03/07/21 01:03 Dose: 25 mls/hr Documented by: Influenza Virus Vaccine (Flu Vacc [id number](6mos Up)/Pf 60 Mcg/0.5 Ml Syringe) 60 mcg IM .ONCE ONE Stop: 03/05/21 10:01 Last Admin: 03/05/21 09:21 Dose: 60 mcg Documented by: Lactulose (Lactulose Soln 10 Gm/15 Ml 15 Ml Ud Cup) 10 gm PO BID [facility] Last Admin: 03/04/21 20:24 Dose: 10 gm Documented by: Lactulose (Lactulose Soln 10 Gm/15 Ml 15 Ml Ud Cup) 10 gm PO ONETIME ONE Stop: 03/04/21 12:16 Last Admin: 03/04/21 12:38 Dose: 10 gm Documented by: Pantoprazole Sodium (Pantoprazole 40 Mg Vial) 40 mg IV ONETIME ONE Stop: 03/04/21 04:07 Last Admin: 03/04/21 05:36 Dose: 40 mg Documented by: Phytonadione (Phytonadione 5 Mg Tab) 5 mg PO ONETIME ONE Stop: 03/07/21 12:31 Last Admin: 03/07/21 12:45 Dose: 5 mg Documented by: Simethicone (Simethicone 125 Mg Tab.Chew) 125 mg PO Q4H [facility] Last Admin: 03/04/21 12:39 Dose: Not Given Documented by: Spironolactone (Spironolactone 25 Mg Tab) 100 mg PO BID [facility] Spironolactone (Spironolactone 25 Mg Tab) 50 mg PO ONETIME ONE Stop: 03/04/21 15:01 Last Admin: 03/04/21 14:00 Dose: 50 mg Documented by: - Exam Quality Assessment: No: Supplemental Oxygen Urinary Catheter Total Time: 4Days 6Hours General: Alert, Oriented, Cooperative, No Acute Distress Lungs: Normal Respiratory Effort. No: Wheezing GI/Abdominal Exam: Soft, No Distention Extremities: Pedal Edema, Increased Warmth (top of both feet ) Skin: Warm, Dry, Rash (erythema over the top of both feet. both feet are dry with no drainage. blanching erythema of right lateral hip that is not warm ) Psy/Mental Status: Alert, Normal Affect - Patient Data Lab Results Last 24 hrs: Laboratory Results - last 24 hr 03/09/21 03/09/21 Range/Units 05:00 05:00 WBC 3.3 L (4.5-11.0) K/uL RBC 2.58 L (3.30-5.50) M/uL Hgb 8.9 L (12.0-15.0) g/dL Hct 26.4 L (36.0-48.0) % MCV 102 H (80-98) fL MCH 35 H (27-31) pg MCHC 34 (32-36) % Plt Count 99 L (150-400) K/uL Sodium 136 L (140-148) mmol/L Potassium 4.8 (3.6-5.2) mmol/L Chloride 99 L (100-108) mmol/L Carbon Dioxide 31 (21-32) mmol/L Anion Gap 10.8 (5.0-14.0) mmol/L BUN 9 (7-18) mg/dL Creatinine 0.8 (0.6-1.0) mg/dL Est Cr Clr Drug Dosing 71.91 mL/min Estimated GFR (MDRD) > 60 (>60) Glucose 80 (74-106) mg/dL Calcium 10.0 (8.5-10.1) mg/dL Result Diagrams: 03/09/21 05:00 03/09/21 05:00 Sepsis Event Note - Evaluation Sepsis Screening Result: Severe Sepsis Risk - Focused Exam Vital Signs: Vital Signs Temp Pulse Resp BP Pulse Ox 03/09/21 07:33 36.0 C L 109 H 16 117/70 99 03/09/21 02:37 36.2 C 86 16 105/56 L 95 03/08/21 22:13 36.8 C 88 16 129/84 100 - Problem List Review Problem List Initiated/Reviewed/Updated: Yes - My Orders Last 24 Hours: My Active Orders 03/08/21 11:45 Insert Buchanan Catheter [Insert Urinary Catheter] [OM.PC] Q24H 03/09/21 08:39 Furosemide [Lasix] 40 mg IVPUSH ONETIME ONE 03/09/21 13:00 DC Buchanan Catheter [Urinary Catheter Removal] [RC] PER UNIT ROUTINE 03/09/21 15:00 Furosemide [Lasix] 20 mg IVPUSH ONETIME ONE 03/10/21 05:00 BASIC METABOLIC PANEL,BMP [CHEM] Timed CBC W/O DIFF,HEMOGRAM [HEME] Timed (1) - Plan Plan:: ASSESSMENT AND PLAN - End-stage liver disease with cirrhosis-not currently on the transplant list but she is in contact with the transplant team and may become eligible again. Responding well to diuresis and steadily improving. Nearing the end of aggressive diuresis. Swollen feet with some redness is most likely stasis dermatitis but I will have a low threshold to start antibiotics if she has increasing pain or develops a fever. -Hold on albumin today -furosemide and spironolactone twice daily, reassess IV versus oral tomorrow morning -Wrap both lower legs to help mobilize fluid -Remove Buchanan catheter today -Lactulose 3 times daily -Outpatient gastroenterology follow-up scheduled on 03/12 Acute on chronic anemia-no impressive evidence for GI blood loss with no melena or hematochezia. Probably a component of acute illness and chronic disease. Iron stores are acceptable at this time. Hemoglobin has responded well to transfusion. Vital signs are stable. -Repeat hemoglobin in the morning Hypokalemia-improved with supplementation. Hyponatremia-normalized with diuresis. -Supplement albumin -Diuresis as above -Recheck sodium in the morning Chronic pain-stable and overall fairly well controlled. -Continue home medication Maintenance issues - -DVT prophylaxis-mechanical compression -GI prophylaxis-PPI -[id number] -Buchanan catheter-plan to remove today Disposition -I anticipate discharge home after the hospital stay Jim Correia M.D.
[2021-03-09] MEDS ORDERED: Furosemide 40 MG/4 ML VIAL IVPUSH ONE (09:00)
[2021-03-09] MEDS: Lactulose Soln 10 GM/15 ML 15 ML UD Cup PO SCH ×3 (09:02→21:14)
[2021-03-09] MEDS: Potassium Chloride 20 MEQ Tab.ER PO SCH ×2 (09:02→21:14)
[2021-03-09] MEDS: Spironolactone 25 MG Tab PO SCH ×2 (09:04→21:14)
[2021-03-09] MEDS: Gabapentin 300 MG Cap PO SCH ×3 (09:05→21:14)
[2021-03-09] MEDS: Citalopram 20 MG Tab PO SCH (09:05)
[2021-03-09] MEDS: Dicyclomine 10 MG Cap PO SCH ×3 (09:05→21:14)
[2021-03-09] MEDS: Thiamine 100 MG Tab PO SCH (09:06)
[2021-03-09] MEDS: Zinc Sulfate 220 MG Cap PO SCH (09:07)
[2021-03-09] MEDS: Cyanocobalamin (Vitamin B12) 1,000 MCG Tab SL SCH (09:07)
[2021-03-09] MEDS: VERIFY FENTANYL PATCH TOP SCH ×2 (09:10→21:14)
[2021-03-09] MEDS ORDERED: Furosemide 20 MG/2 ML VIAL IVPUSH ONE (15:00)
[2021-03-09] MEDS: traZODone 50 MG Tab PO SCH (21:14)
[2021-03-09] MEDS ORDERED: Nystatin Topical Powder 15 GM Bottle TOP SCH (21:45)
[2021-03-10] MEDS: Pantoprazole 40 MG Tab.CR PO SCH (07:30)
[2021-03-10] MEDS: Spironolactone 25 MG Tab PO SCH ×2 (09:13→21:37)
[2021-03-10] MEDS: Lactulose Soln 10 GM/15 ML 15 ML UD Cup PO SCH ×3 (09:13→21:37)
[2021-03-10] MEDS: Potassium Chloride 20 MEQ Tab.ER PO SCH ×2 (09:14→21:37)
[2021-03-10] MEDS: Gabapentin 300 MG Cap PO SCH ×3 (09:14→21:36)
[2021-03-10] MEDS: Zinc Sulfate 220 MG Cap PO SCH (09:14)
[2021-03-10] MEDS: Thiamine 100 MG Tab PO SCH (09:14)
[2021-03-10] MEDS: Citalopram 20 MG Tab PO SCH (09:14)
[2021-03-10] MEDS: Nystatin Topical Powder 15 GM Bottle TOP SCH ×2 (09:14→21:37)
[2021-03-10] MEDS: VERIFY FENTANYL PATCH TOP SCH ×2 (09:15→22:14)
[2021-03-10] MEDS: Cyanocobalamin (Vitamin B12) 1,000 MCG Tab SL SCH (09:15)
[2021-03-10] MEDS: Dicyclomine 10 MG Cap PO SCH ×3 (09:19→21:36)
[2021-03-10] MEDS: Promethazine 25 MG Tab PO PRN (11:37)
--- NOTE | 2021-03-10 13:08 | PCM.PN ---
- General Info Date of Service: 03/10/21 Subjective Update: Ms. Grove has been stable since yesterday. Persistent swelling of her feet with changes of venous stasis, no evidence of underlying infection. Edema otherwise significantly improved from admission. Functional Status: Reports: Tolerating Diet, Ambulating, Urinating - Review of Systems General: Reports: No Symptoms Pulmonary: Reports: No Symptoms Cardiovascular: Reports: Edema. Denies: Chest Pain, Palpitations, Dyspnea on Exertion, Orthopnea, PND, Lightheadedness Gastrointestinal: Reports: No Symptoms Genitourinary: Reports: No Symptoms - Patient Data Vitals - Most Recent: Last Vital Signs Temp 96.4 F L 03/10/21 10:51 Pulse 96 03/10/21 10:51 Resp 18 03/10/21 10:51 BP 108/62 03/10/21 10:51 Pulse Ox 99 03/10/21 10:51 Weight - Most Recent: 169 lb 12.095 oz I&O - Last 24 Hours: Intake & Output 03/09/21 03/10/21 03/10/21 22:59 06:59 14:59 Intake Total 882 081 9265 Output Total 950 700 400 Balance -635 -200 780 Lab Results Last 24 Hours: Laboratory Results - last 24 hr 03/10/21 03/10/21 Range/Units 04:25 04:25 WBC 2.6 L (4.5-11.0) K/uL RBC 2.56 L (3.30-5.50) M/uL Hgb 8.6 L (12.0-15.0) g/dL Hct 26.4 L (36.0-48.0) % MCV 103 H (80-98) fL MCH 34 H (27-31) pg MCHC 33 (32-36) % Plt Count 96 L (150-400) K/uL Sodium 136 L (140-148) mmol/L Potassium 4.3 (3.6-5.2) mmol/L Chloride 99 L (100-108) mmol/L Carbon Dioxide 30 (21-32) mmol/L Anion Gap 11.3 (5.0-14.0) mmol/L BUN 10 (7-18) mg/dL Creatinine 0.8 (0.6-1.0) mg/dL Est Cr Clr Drug Dosing 71.91 mL/min Estimated GFR (MDRD) > 60 (>60) Glucose 59 L (74-106) mg/dL Calcium 9.9 (8.5-10.1) mg/dL Med Orders - Current: Current Medications Citalopram Hydrobromide (Citalopram 20 Mg Tab) 20 mg PO DAILY [facility] Last Admin: 03/10/21 09:14 Dose: 20 mg Documented by: Cyanocobalamin (Cyanocobalamin (Vitamin B12) 1,000 Mcg Tab) 1,000 mcg SL DAILY [facility] Last Admin: 03/10/21 09:15 Dose: 1,000 mcg Documented by: Dicyclomine HCl (Dicyclomine 10 Mg Cap) 10 mg PO TID [facility] Last Admin: 03/10/21 09:19 Dose: 10 mg Documented by: Fentanyl (Fentanyl 25 Mcg/Hr Transdermal Patch) 25 mcg TOP Q72H [facility] Last Admin: 03/08/21 12:14 Dose: 25 mcg Documented by: Furosemide (Furosemide 40 Mg Tab) 40 mg PO DAILY [facility] Gabapentin (Gabapentin 300 Mg Cap) 600 mg PO TID [facility] Last Admin: 03/10/21 09:14 Dose: 600 mg Documented by: Promethazine HCl 6.25 mg/ (Sodium Chloride) 50.25 mls @ 200 mls/hr IV Q6H PRN PRN Reason: Nausea/Vomiting Lactulose (Lactulose Soln 10 Gm/15 Ml 15 Ml Ud Cup) 10 gm PO TID [facility] Last Admin: 03/10/21 09:13 Dose: 10 gm Documented by: Morphine Sulfate (Morphine 2 Mg/Ml Syringe) 2 mg IVPUSH Q2H PRN PRN Reason: Pain (severe 7-10) Verify Fentanyl (Patch) 0 each TOP BID [facility] Last Admin: 03/10/21 09:15 Dose: Not Given Documented by: Nystatin (Nystatin Topical Powder 15 Gm Bottle) 0 gm TOP BID [facility] Last Admin: 03/10/21 09:14 Dose: 1 applic Documented by: Oxycodone HCl (Oxycodone 5 Mg Tab) 5 mg PO Q4H PRN PRN Reason: Pain (moderate 4-6) Pantoprazole Sodium (Pantoprazole 40 Mg Tab.Cr) 40 mg PO ACBREAKFAST [facility] Last Admin: 03/10/21 07:30 Dose: 40 mg Documented by: Potassium Chloride (Potassium Chloride 20 Meq Tab.Er) 40 meq PO BID [facility] Last Admin: 03/10/21 09:14 Dose: 40 meq Documented by: Promethazine HCl (Promethazine 25 Mg Tab) 25 mg PO Q6H PRN PRN Reason: Nausea able to take PO Last Admin: 03/10/21 11:37 Dose: 25 mg Documented by: Simethicone (Simethicone 125 Mg Tab.Chew) 125 mg PO Q4H PRN PRN Reason: Abdominal Pain Spironolactone (Spironolactone 25 Mg Tab) 50 mg PO BID [facility] Last Admin: 03/10/21 09:13 Dose: 50 mg Documented by: Thiamine HCl (Thiamine 100 Mg Tab) 100 mg PO DAILY [facility] Last Admin: 03/10/21 09:14 Dose: 100 mg Documented by: Trazodone HCl (Trazodone 50 Mg Tab) 50 mg PO BEDTIME [facility] Last Admin: 03/09/21 21:14 Dose: 50 mg Documented by: Zinc Sulfate (Zinc Sulfate 220 Mg Cap) 220 mg PO DAILY [facility] Last Admin: 03/10/21 09:14 Dose: 220 mg Documented by: Discontinued Medications Furosemide (Furosemide 40 Mg/4 Ml Vial) 40 mg IVPUSH ONETIME ONE Stop: 03/04/21 03:30 Last Admin: 03/04/21 03:45 Dose: 40 mg Documented by: Furosemide (Furosemide 40 Mg/4 Ml Vial) 40 mg IVPUSH ONETIME ONE Stop: 03/04/21 04:35 Last Admin: 03/04/21 09:14 Dose: 40 mg Documented by: Furosemide (Furosemide 40 Mg/4 Ml Vial) 40 mg IVPUSH ONETIME ONE Stop: 03/04/21 10:01 Furosemide (Furosemide 40 Mg/4 Ml Vial) 40 mg IVPUSH ONETIME ONE Stop: 03/04/21 15:01 Last Admin: 03/04/21 13:59 Dose: 40 mg Documented by: Furosemide (Furosemide 40 Mg/4 Ml Vial) 40 mg IVPUSH BID [facility] Stop: 03/08/21 23:00 Last Admin: 03/08/21 21:34 Dose: 40 mg Documented by: Furosemide (Furosemide 40 Mg/4 Ml Vial) 40 mg IVPUSH ONETIME ONE Stop: 03/09/21 09:01 Last Admin: 03/09/21 09:03 Dose: 40 mg Documented by: Furosemide (Furosemide 20 Mg/2 Ml Vial) 20 mg IVPUSH ONETIME ONE Stop: 03/09/21 15:01 Last Admin: 03/09/21 14:20 Dose: 20 mg Documented by: Albumin Human 25 gm/ Premix 100 mls @ 25 mls/hr IV ONETIME ONE Stop: 03/04/21 08:31 Last Admin: 03/04/21 05:40 Dose: 25 mls/hr Documented by: Albumin Human (Albumin 25%) 25 gm in 100 mls @ 25 mls/hr IV Q6H [facility] Stop: 03/05/21 10:29 Last Admin: 03/05/21 05:45 Dose: 25 mls/hr Documented by: Sodium Chloride (Sodium Chloride 3%) 500 mls @ 50 mls/hr IV ASDIRECTED [facility] Stop: 03/04/21 12:46 Last Admin: 03/04/21 12:38 Dose: 50 mls/hr Documented by: Albumin Human (Albumin 25%) 25 gm in 100 mls @ 25 mls/hr IV Q6H [facility] Stop: 03/06/21 07:59 Last Admin: 03/06/21 04:27 Dose: 25 mls/hr Documented by: Magnesium Sulfate 2 gm/ Premix 50 mls @ 25 mls/hr IV ONETIME ONE Stop: 03/06/21 10:59 Last Admin: 03/06/21 10:27 Dose: 25 mls/hr Documented by: Albumin Human (Albumin 25%) 25 gm in 100 mls @ 25 mls/hr IV Q6H [facility] Stop: 03/07/21 05:59 Last Admin: 03/07/21 01:03 Dose: 25 mls/hr Documented by: Influenza Virus Vaccine (Flu Vacc [id number](6mos Up)/Pf 60 Mcg/0.5 Ml Syringe) 60 mcg IM .ONCE ONE Stop: 03/05/21 10:01 Last Admin: 03/05/21 09:21 Dose: 60 mcg Documented by: Lactulose (Lactulose Soln 10 Gm/15 Ml 15 Ml Ud Cup) 10 gm PO BID [facility] Last Admin: 03/04/21 20:24 Dose: 10 gm Documented by: Lactulose (Lactulose Soln 10 Gm/15 Ml 15 Ml Ud Cup) 10 gm PO ONETIME ONE Stop: 03/04/21 12:16 Last Admin: 03/04/21 12:38 Dose: 10 gm Documented by: Nystatin (Nystatin Topical Powder 15 Gm Bottle) 0 gm TOP BID [facility] Last Admin: 03/10/21 05:09 Dose: 1 applic Documented by: Pantoprazole Sodium (Pantoprazole 40 Mg Vial) 40 mg IV ONETIME ONE Stop: 03/04/21 04:07 Last Admin: 03/04/21 05:36 Dose: 40 mg Documented by: Phytonadione (Phytonadione 5 Mg Tab) 5 mg PO ONETIME ONE Stop: 03/07/21 12:31 Last Admin: 03/07/21 12:45 Dose: 5 mg Documented by: Simethicone (Simethicone 125 Mg Tab.Chew) 125 mg PO Q4H [facility] Last Admin: 03/04/21 12:39 Dose: Not Given Documented by: Spironolactone (Spironolactone 25 Mg Tab) 100 mg PO BID [facility] Spironolactone (Spironolactone 25 Mg Tab) 50 mg PO ONETIME ONE Stop: 03/04/21 15:01 Last Admin: 03/04/21 14:00 Dose: 50 mg Documented by: - Exam Quality Assessment: DVT Prophylaxis Urinary Catheter Total Time: 5Days 0Hours General: Alert, Oriented, Cooperative, Mild Distress Lungs: Clear to Auscultation, Normal Respiratory Effort Cardiovascular: Regular Rate, Regular Rhythm, No Murmurs GI/Abdominal Exam: Soft, Non-Tender, No Organomegaly, No Distention Extremities: Non-Tender, Pedal Edema, Redness - Patient Data Lab Results Last 24 hrs: Laboratory Results - last 24 hr 03/10/21 03/10/21 Range/Units 04:25 04:25 WBC 2.6 L (4.5-11.0) K/uL RBC 2.56 L (3.30-5.50) M/uL Hgb 8.6 L (12.0-15.0) g/dL Hct 26.4 L (36.0-48.0) % MCV 103 H (80-98) fL MCH 34 H (27-31) pg MCHC 33 (32-36) % Plt Count 96 L (150-400) K/uL Sodium 136 L (140-148) mmol/L Potassium 4.3 (3.6-5.2) mmol/L Chloride 99 L (100-108) mmol/L Carbon Dioxide 30 (21-32) mmol/L Anion Gap 11.3 (5.0-14.0) mmol/L BUN 10 (7-18) mg/dL Creatinine 0.8 (0.6-1.0) mg/dL Est Cr Clr Drug Dosing 71.91 mL/min Estimated GFR (MDRD) > 60 (>60) Glucose 59 L (74-106) mg/dL Calcium 9.9 (8.5-10.1) mg/dL Result Diagrams: 03/10/21 04:25 03/10/21 04:25 Sepsis Event Note - Evaluation Sepsis Screening Result: Sepsis Risk - Focused Exam Vital Signs: Vital Signs Temp Pulse Resp BP BP Pulse Ox 03/10/21 10:51 96.4 F L 96 18 108/62 99 03/10/21 07:00 97.0 F 103 H 18 123/69 100 03/10/21 03:00 98.9 F 95 16 104/67 98 - Problem List Review Problem List Initiated/Reviewed/Updated: Yes - My Orders Last 24 Hours: My Active Orders 03/10/21 Lunch 2 Gram Sodium Diet [DIET] 03/10/21 13:15 Furosemide [Lasix] 40 mg PO DAILY - Plan Plan:: ASSESSMENT AND PLAN - End-stage liver disease with cirrhosis-Responding well to diuresis and steadily improving. Nearing the end of aggressive diuresis. Swollen feet with some redness is most likely stasis dermatitis -Hold on albumin today -furosemide and spironolactone twice daily, reassess IV versus oral tomorrow morning -Wrap both lower legs to help mobilize fluid -Lactulose 3 times daily -Outpatient gastroenterology follow-up scheduled on 03/12 Acute on chronic anemia-no impressive evidence for GI blood loss with no melena or hematochezia. Probably a component of acute illness and chronic disease. Iron stores are acceptable at this time. Hemoglobin has responded well to transfusion. Vital signs are stable. -Repeat hemoglobin in the morning Hypokalemia-improved with supplementation. Hyponatremia-normalized with diuresis. -Supplement albumin -Diuresis as above -Recheck sodium in the morning Chronic pain-stable and overall fairly well controlled. -Continue home medication Maintenance issues - -DVT prophylaxis-mechanical compression -GI prophylaxis-PPI -[id number] -Buchanan catheter-plan to remove today Disposition -I anticipate discharge home after the hospital stay
[2021-03-10] MEDS: Furosemide 40 MG Tab PO SCH (13:50)
[2021-03-10] MEDS: traZODone 50 MG Tab PO SCH (21:36)
[2021-03-11 07:43] VITALS: BP 122/72; PULSE 110
[2021-03-11] MEDS: Pantoprazole 40 MG Tab.CR PO SCH (07:44)
[2021-03-11] MEDS: Potassium Chloride 20 MEQ Tab.ER PO SCH (09:09)
[2021-03-11] MEDS: Gabapentin 300 MG Cap PO SCH (09:09)
[2021-03-11] MEDS: Zinc Sulfate 220 MG Cap PO SCH (09:09)
[2021-03-11] MEDS: Spironolactone 25 MG Tab PO SCH (09:09)
[2021-03-11] MEDS: Cyanocobalamin (Vitamin B12) 1,000 MCG Tab SL SCH (09:09)
[2021-03-11] MEDS: Dicyclomine 10 MG Cap PO SCH (09:10)
[2021-03-11] MEDS: Citalopram 20 MG Tab PO SCH (09:10)
[2021-03-11] MEDS: Thiamine 100 MG Tab PO SCH (09:11)
[2021-03-11] MEDS: Lactulose Soln 10 GM/15 ML 15 ML UD Cup PO SCH (09:12)
[2021-03-11] MEDS: Furosemide 40 MG Tab PO SCH (09:12)
[2021-03-11] MEDS: Nystatin Topical Powder 15 GM Bottle TOP SCH (09:14)
[2021-03-11] MEDS: VERIFY FENTANYL PATCH TOP SCH (09:14)
--- NOTE | 2021-03-11 12:29 | PCM.DCSUM1 ---
Discharge Summary - Hospital Course Brief History: Ms. Grove is a 45-year-old woman with end-stage hepatic cirrhosis who was admitted through the emergency department with increased peripheral edema. - Discharge Data Discharge Date: 03/11/21 Discharge Disposition: Home, Self-Care 01 Condition: Poor - Referral to Home Health Primary Care Physician: PCP None - Discharge Diagnosis/Problem(s) (1) Ascites SNOMED Code(s): 605579129 ICD Code: R18.8 - OTHER ASCITES Status: Acute Current Visit: No Qualifiers: Ascites type: due to alcoholic cirrhosis Qualified Code(s): K70.31 - Alcoholic cirrhosis of liver with ascites (2) Fluid overload SNOMED Code(s): 92048773 ICD Code: E87.70 - FLUID OVERLOAD, UNSPECIFIED Status: Acute Current Visit: No Qualifiers: Hypervolemia type: other Qualified Code(s): E87.79 - Other fluid overload (3) Cirrhosis of liver SNOMED Code(s): 42272125 ICD Code: K74.60 - UNSPECIFIED CIRRHOSIS OF LIVER Status: Acute Current Visit: No Qualifiers: Hepatic cirrhosis type: alcoholic cirrhosis Ascites presence: with ascites Qualified Code(s): K70.31 - Alcoholic cirrhosis of liver with ascites (4) Hyponatremia SNOMED Code(s): 71604584 ICD Code: E87.1 - HYPO-OSMOLALITY AND HYPONATREMIA Status: Acute Priority: High Current Visit: No - Patient Summary/Data Hospital Course: Ms. Grove is a 45-year-old woman with end-stage hepatic cirrhosis who was admitted through the emergency department with severe peripheral edema and fluid overload. She has a history of difficult to manage fluid balance and in the past has been admitted with severe dehydration and acute kidney injury secondary to her diuretics. At that time she was on furosemide 40 mg twice daily. More recently she has been on furosemide 20 mg twice daily, prior to this admission. She has not done well with fluid restriction or low-sodium diet. She reports that she had developed increased peripheral edema since discharge from her last hospitalization. She did have some open sores that were weeping fluid. On admi ssion she was placed on fluid restriction which again she did not follow while in the hospital. She was also placed on strict 2 g sodium diet as well as twice daily diuretic therapy. Over the next several days of hospitalization she did have a good diuresis and improvement in her peripheral edema. Legs were wrapped daily with [place] wrap's and she will be discharged home on knee-high [place] hose. By the time of discharge much of her edema had resolved but there was still a mild amount present. She will be discharged home on furosemide 40 mg every morning and 20 mg late afternoon. She is encouraged to wear support hose daily, limit fluid intake, and follow a strict 2 g sodium diet. Follow-up appointment will be scheduled with her primary care provider within 1 week. - Patient Instructions Diet: Low Sodium Activity: As Tolerated Other/Special Instructions: Please schedule follow-up appointment with primary care provider within 1 week. Wear knee-high support hose daily. - Discharge Plan *PRESCRIPTION DRUG MONITORING PROGRAM REVIEWED*: Not Applicable *COPY OF PRESCRIPTION DRUG MONITORING REPORT IN PATIENT FARHAT: Not Applicable Prescriptions/Med Rec: Furosemide [Lasix] 20 mg PO ASDIRECTED #90 tablet Home Medications: Home Meds Multivitamin [Multi-Vitamin Daily] 1 tab PO DAILY 12/02/15 [History] Gabapentin [Neurontin] 600 mg PO TID 07/13/18 [History] Albuterol Sulfate [Proair Respiclick] 1 - 2 puff IH Q4HR PRN 08/10/18 [History] Cyanocobalamin (Vitamin B-12) [Vitamin B-12] 1,000 mcg SL DAILY 08/10/18 [History] Magnesium 400 mg PO BID 11/23/18 [History] Citalopram [Citalopram HBr] 20 mg PO DAILY #30 tablet 04/14/19 [Rx] Lidocaine/Prilocaine [EMLA Crm] 1 applic TP ASDIRECTED PRN 10/30/20 [History] Ondansetron [Zofran ODT] 4 mg PO Q6H PRN 10/30/20 [History] SUMAtriptan succinate [Imitrex] 100 mg PO ASDIRECTED PRN 10/30/20 [History] traZODone 50 mg PO BEDTIME 10/30/20 [History] Dicyclomine [Bentyl] 10 mg PO TID 11/19/20 [History] Pantoprazole [ProTONIX] 40 mg PO ACBREAKFAST #30 tab.cr 12/04/20 [Rx] Spironolactone [Aldactone] 50 mg PO BID #0 12/04/20 [Rx] Cholecalciferol (Vitamin D3) [Vitamin D] 400 unit PO DAILY 01/26/21 [History] Ergocalciferol (Vitamin D2) [Vitamin D2] 1.25 mg PO ASDIRECTED 01/26/21 [History] Ferrous Fumarate/Vitamin C [Vitron-C] 1 tab PO DAILY 01/26/21 [History] Ferrous Sulfate 325 mg PO DAILY 01/26/21 [History] Scopolamine [Transderm-Scop] 1 patch TD Q3D 01/26/21 [History] Simethicone 125 mg PO Q4H PRN 01/26/21 [History] Thiamine [Vitamin B-1] 100 mg PO DAILY 01/26/21 [History] Vitamin A Palmitate [Vitamin A] 50,000 unit PO DAILY 01/26/21 [History] Zinc 50 mg PO DAILY 01/26/21 [History] polyethylene glycoL 3350 [MiraLAX] 8 gm PO DAILY 01/26/21 [History] Lactulose [Chronulac] 10 gm PO BID #1000 ml 01/29/21 [Rx] Sucralfate 1 dose PO ASDIRECTED 02/14/21 [History] fentaNYL [Duragesic] 25 mcg TOP Q72H 02/26/21 [History] Furosemide [Lasix] 20 mg PO ASDIRECTED #90 tablet 03/11/21 [Rx] Patient Handouts: Alcoholic Liver Disease, [id number], Fall Prevention in the Home, Adult, [id number] Forms: ED Department Discharge Referrals: Rick James MD [Physician] - 03/20/21 1:30 pm (Please arrive 15 minutes early to register for your appointment.) - Discharge Summary/Plan Comment DC Time >30 min.: No Total # of Minutes for Discharge Time: 20 - Patient Data Vitals - Most Recent: Last Vital Signs Temp 96.4 F L 03/11/21 07:00 Pulse 110 H 03/11/21 07:00 Resp 16 03/11/21 07:00 BP 122/72 03/11/21 07:00 Pulse Ox 100 03/11/21 07:00 Weight - Most Recent: 169 lb 12.095 oz I&O - Last 24 hours: Intake & Output 03/10/21 03/11/21 03/11/21 22:59 06:59 14:59 Intake Total 450 360 Output Total 1500 1100 Balance -1050 -1100 360 Med Orders - Current: Current Medications Citalopram Hydrobromide (Citalopram 20 Mg Tab) 20 mg PO DAILY [facility] Last Admin: 03/11/21 09:10 Dose: 20 mg Documented by: Cyanocobalamin (Cyanocobalamin (Vitamin B12) 1,000 Mcg Tab) 1,000 mcg SL DAILY [facility] Last Admin: 03/11/21 09:09 Dose: 1,000 mcg Documented by: Dicyclomine HCl (Dicyclomine 10 Mg Cap) 10 mg PO TID [facility] Last Admin: 03/11/21 09:10 Dose: 10 mg Documented by: Fentanyl (Fentanyl 25 Mcg/Hr Transdermal Patch) 25 mcg TOP Q72H [facility] Last Admin: 03/08/21 12:14 Dose: 25 mcg Documented by: Furosemide (Furosemide 40 Mg Tab) 40 mg PO DAILY [facility] Last Admin: 03/11/21 09:12 Dose: 40 mg Documented by: Gabapentin (Gabapentin 300 Mg Cap) 600 mg PO TID [facility] Last Admin: 03/11/21 09:09 Dose: 600 mg Documented by: Promethazine HCl 6.25 mg/ (Sodium Chloride) 50.25 mls @ 200 mls/hr IV Q6H PRN PRN Reason: Nausea/Vomiting Lactulose (Lactulose Soln 10 Gm/15 Ml 15 Ml Ud Cup) 10 gm PO TID [facility] Last Admin: 03/11/21 09:12 Dose: 10 gm Documented by: Morphine Sulfate (Morphine 2 Mg/Ml Syringe) 2 mg IVPUSH Q2H PRN PRN Reason: Pain (severe 7-10) Verify Fentanyl (Patch) 0 each TOP BID [facility] Last Admin: 03/11/21 09:14 Dose: Not Given Documented by: Nystatin (Nystatin Topical Powder 15 Gm Bottle) 0 gm TOP BID [facility] Last Admin: 03/11/21 09:14 Dose: 1 applic Documented by: Oxycodone HCl (Oxycodone 5 Mg Tab) 5 mg PO Q4H PRN PRN Reason: Pain (moderate 4-6) Pantoprazole Sodium (Pantoprazole 40 Mg Tab.Cr) 40 mg PO ACBREAKFAST [facility] Last Admin: 03/11/21 07:44 Dose: 40 mg Documented by: Potassium Chloride (Potassium Chloride 20 Meq Tab.Er) 40 meq PO BID [facility] Last Admin: 03/11/21 09:09 Dose: 40 meq Documented by: Promethazine HCl (Promethazine 25 Mg Tab) 25 mg PO Q6H PRN PRN Reason: Nausea able to take PO Last Admin: 03/10/21 11:37 Dose: 25 mg Documented by: Simethicone (Simethicone 125 Mg Tab.Chew) 125 mg PO Q4H PRN PRN Reason: Abdominal Pain Spironolactone (Spironolactone 25 Mg Tab) 50 mg PO BID [facility] Last Admin: 03/11/21 09:09 Dose: 50 mg Documented by: Thiamine HCl (Thiamine 100 Mg Tab) 100 mg PO DAILY [facility] Last Admin: 03/11/21 09:11 Dose: 100 mg Documented by: Trazodone HCl (Trazodone 50 Mg Tab) 50 mg PO BEDTIME [facility] Last Admin: 03/10/21 21:36 Dose: 50 mg Documented by: Zinc Sulfate (Zinc Sulfate 220 Mg Cap) 220 mg PO DAILY [facility] Last Admin: 03/11/21 09:09 Dose: 220 mg Documented by: Discontinued Medications Furosemide (Furosemide 40 Mg/4 Ml Vial) 40 mg IVPUSH ONETIME ONE Stop: 03/04/21 03:30 Last Admin: 03/04/21 03:45 Dose: 40 mg Documented by: Furosemide (Furosemide 40 Mg/4 Ml Vial) 40 mg IVPUSH ONETIME ONE Stop: 03/04/21 04:35 Last Admin: 03/04/21 09:14 Dose: 40 mg Documented by: Furosemide (Furosemide 40 Mg/4 Ml Vial) 40 mg IVPUSH ONETIME ONE Stop: 03/04/21 10:01 Furosemide (Furosemide 40 Mg/4 Ml Vial) 40 mg IVPUSH ONETIME ONE Stop: 03/04/21 15:01 Last Admin: 03/04/21 13:59 Dose: 40 mg Documented by: Furosemide (Furosemide 40 Mg/4 Ml Vial) 40 mg IVPUSH BID [facility] Stop: 03/08/21 23:00 Last Admin: 03/08/21 21:34 Dose: 40 mg Documented by: Furosemide (Furosemide 40 Mg/4 Ml Vial) 40 mg IVPUSH ONETIME ONE Stop: 03/09/21 09:01 Last Admin: 03/09/21 09:03 Dose: 40 mg Documented by: Furosemide (Furosemide 20 Mg/2 Ml Vial) 20 mg IVPUSH ONETIME ONE Stop: 03/09/21 15:01 Last Admin: 03/09/21 14:20 Dose: 20 mg Documented by: Albumin Human 25 gm/ Premix 100 mls @ 25 mls/hr IV ONETIME ONE Stop: 03/04/21 08:31 Last Admin: 03/04/21 05:40 Dose: 25 mls/hr Documented by: Albumin Human (Albumin 25%) 25 gm in 100 mls @ 25 mls/hr IV Q6H [facility] Stop: 03/05/21 10:29 Last Admin: 03/05/21 05:45 Dose: 25 mls/hr Documented by: Sodium Chloride (Sodium Chloride 3%) 500 mls @ 50 mls/hr IV ASDIRECTED [facility] Stop: 03/04/21 12:46 Last Admin: 03/04/21 12:38 Dose: 50 mls/hr Documented by: Albumin Human (Albumin 25%) 25 gm in 100 mls @ 25 mls/hr IV Q6H [facility] Stop: 03/06/21 07:59 Last Admin: 03/06/21 04:27 Dose: 25 mls/hr Documented by: Magnesium Sulfate 2 gm/ Premix 50 mls @ 25 mls/hr IV ONETIME ONE Stop: 03/06/21 10:59 Last Admin: 03/06/21 10:27 Dose: 25 mls/hr Documented by: Albumin Human (Albumin 25%) 25 gm in 100 mls @ 25 mls/hr IV Q6H [facility] Stop: 03/07/21 05:59 Last Admin: 03/07/21 01:03 Dose: 25 mls/hr Documented by: Influenza Virus Vaccine (Flu Vacc [id number](6mos Up)/Pf 60 Mcg/0.5 Ml Syringe) 60 mcg IM .ONCE ONE Stop: 03/05/21 10:01 Last Admin: 03/05/21 09:21 Dose: 60 mcg Documented by: Lactulose (Lactulose Soln 10 Gm/15 Ml 15 Ml Ud Cup) 10 gm PO BID [facility] Last Admin: 03/04/21 20:24 Dose: 10 gm Documented by: Lactulose (Lactulose Soln 10 Gm/15 Ml 15 Ml Ud Cup) 10 gm PO ONETIME ONE Stop: 03/04/21 12:16 Last Admin: 03/04/21 12:38 Dose: 10 gm Documented by: Nystatin (Nystatin Topical Powder 15 Gm Bottle) 0 gm TOP BID [facility] Last Admin: 03/10/21 05:09 Dose: 1 applic Documented by: Pantoprazole Sodium (Pantoprazole 40 Mg Vial) 40 mg IV ONETIME ONE Stop: 03/04/21 04:07 Last Admin: 03/04/21 05:36 Dose: 40 mg Documented by: Phytonadione (Phytonadione 5 Mg Tab) 5 mg PO ONETIME ONE Stop: 03/07/21 12:31 Last Admin: 03/07/21 12:45 Dose: 5 mg Documented by: Simethicone (Simethicone 125 Mg Tab.Chew) 125 mg PO Q4H [facility] Last Admin: 03/04/21 12:39 Dose: Not Given Documented by: Spironolactone (Spironolactone 25 Mg Tab) 100 mg PO BID [facility] Spironolactone (Spironolactone 25 Mg Tab) 50 mg PO ONETIME ONE Stop: 03/04/21 15:01 Last Admin: 03/04/21 14:00 Dose: 50 mg Documented by: - Exam General: Reports: Alert, Oriented, Cooperative, No Acute Distress Lungs: Reports: Clear to Auscultation, Normal Respiratory Effort Cardiovascular: Reports: Regular Rate, Regular Rhythm, No Murmurs GI/Abdominal Exam: Soft, Non-Tender, No Organomegaly, No Distention Extremities: Non-Tender, Pedal Edema
== END 2021-03-11 12:36 | disposition home or self-care (01) | DRG 280 ==
LOC: JP.ED 02:59 → JP.MS 04:06
PROVIDERS: ADMIT Family Medicine; ATTEND Hospitalist
DX: K70.31 Alcoholic cirrhosis of liver with ascites (principal); E87.70 Fluid overload, unspecified; E87.1 Hypo-osmolality and hyponatremia; I10 Essential (primary) hypertension; K21.9 Gastro-esophageal reflux disease without esophagitis; J45.909 Unspecified asthma, uncomplicated; D51.9 Vitamin B12 deficiency anemia, unspecified; F41.9 Anxiety disorder, unspecified; E87.6 Hypokalemia; G89.29 Other chronic pain; F32.A Depression, unspecified; Z20.822 Contact with and (suspected) exposure to COVID-19; E03.9 Hypothyroidism, unspecified; Z79.890 Hormone replacement therapy; Z90.89 Acquired absence of other organs; Z79.51 Long term (current) use of inhaled steroids; Z87.81 Personal history of (healed) traumatic fracture; Z79.52 Long term (current) use of systemic steroids; Z79.899 Other long term (current) drug therapy; Z90.49 Acquired absence of other specified parts of digestive tract; Z90.710 Acquired absence of both cervix and uterus; Z98.51 Tubal ligation status
CPT/HCPCS: 0241U; 36415; 36430; 51702; 76705; 76705-26; 80048; 80053; 80305-QW; 80307; 81001; 82140; 82728; 83550; 83735; 85018; 85025; 85027; 85610; 86850; 86900; 86901; 86920; 86922; 90686; 96374; 99285-25; A9270-GY; C9113; G0008; J1940; J3475; J7131; P9016; P9047

== ENCOUNTER 2021-03-17 14:06 | Emergency (ER) | payer BC ==
--- NOTE | 2021-03-17 15:05 | EDM.PDOC ---
ED HPI GENERAL MEDICAL PROBLEM - General Chief Complaint: Neurological Problem Stated Complaint: MEDICAL Time Seen by Provider: 03/17/21 14:35 Source of Information: Reports: Family History Limitations: Reports: Altered Mental Status, Physical Impairment - History of Present Illness INITIAL COMMENTS - FREE TEXT/NARRATIVE: 45-year-old female with end-stage cirrhosis, stage IV, who was discharged from the hospital 6 days ago with significant peripheral edema. When she took her medicines appropriately, the edema went down and she did well for 24 hours after getting home but then started to become noncompliant, depressed, and would not take her medicines. She is again confused, has developed right leg edema, increased pallor and jaundice and likely has worsening hepatic encephalopathy. The family brought her in again to be hospitalized. Onset: Gradual Duration: Day(s): (Has been worsening for the last 4 days) Worsens with: Reports: Other (She gets worse when she does not take her medications appropriately) Associated Symptoms: Reports: Confusion, Loss of Appetite, Malaise, Weakness. Denies: Fever/Chills, Nausea/Vomiting Abdomen Pain Score (Numeric/FACES): 10 - Related Data Allergies Allergy/AdvReac Type Severity Reaction Status Date / Time doxycycline Allergy Intermediate Rash Verified 03/17/21 14:24 erythromycin base Allergy Intermediate Rash Verified 03/17/21 14:24 procaine [From Novocain] Allergy Intermediate Rash Verified 03/17/21 14:24 Home Meds: Home Meds Multivitamin [Multi-Vitamin Daily] 1 tab PO DAILY 12/02/15 [History] Gabapentin [Neurontin] 600 mg PO TID 07/13/18 [History] Albuterol Sulfate [Proair Respiclick] 1 - 2 puff IH Q4HR PRN 08/10/18 [History] Cyanocobalamin (Vitamin B-12) [Vitamin B-12] 1,000 mcg SL DAILY 08/10/18 [Histo ry] Magnesium 400 mg PO BID 11/23/18 [History] Citalopram [Citalopram HBr] 20 mg PO DAILY #30 tablet 04/14/19 [Rx] Lidocaine/Prilocaine [EMLA Crm] 1 applic TP ASDIRECTED PRN 10/30/20 [History] Ondansetron [Zofran ODT] 4 mg PO Q6H PRN 10/30/20 [History] SUMAtriptan succinate [Imitrex] 100 mg PO ASDIRECTED PRN 10/30/20 [History] traZODone 50 mg PO BEDTIME 10/30/20 [History] Dicyclomine [Bentyl] 10 mg PO TID 11/19/20 [History] Pantoprazole [ProTONIX] 40 mg PO ACBREAKFAST #30 tab.cr 12/04/20 [Rx] Spironolactone [Aldactone] 50 mg PO BID #0 12/04/20 [Rx] Cholecalciferol (Vitamin D3) [Vitamin D] 400 unit PO DAILY 01/26/21 [History] Ergocalciferol (Vitamin D2) [Vitamin D2] 1.25 mg PO ASDIRECTED 01/26/21 [History] Ferrous Fumarate/Vitamin C [Vitron-C] 1 tab PO DAILY 01/26/21 [History] Ferrous Sulfate 325 mg PO DAILY 01/26/21 [History] Scopolamine [Transderm-Scop] 1 patch TD Q3D 01/26/21 [History] Simethicone 125 mg PO Q4H PRN 01/26/21 [History] Thiamine [Vitamin B-1] 100 mg PO DAILY 01/26/21 [History] Vitamin A Palmitate [Vitamin A] 50,000 unit PO DAILY 01/26/21 [History] Zinc 50 mg PO DAILY 01/26/21 [History] polyethylene glycoL 3350 [MiraLAX] 8 gm PO DAILY 01/26/21 [History] Lactulose [Chronulac] 10 gm PO BID #1000 ml 01/29/21 [Rx] Sucralfate 1 dose PO ASDIRECTED 02/14/21 [History] fentaNYL [Duragesic] 25 mcg TOP Q72H 02/26/21 [History] Furosemide [Lasix] 20 mg PO ASDIRECTED #90 tablet 03/11/21 [Rx] Past Medical History HEENT History: Reports: None Cardiovascular History: Reports: Hypertension Respiratory History: Reports: Asthma Gastrointestinal History: Reports: Cirrhosis, GERD, Other (See Below) Other Gastrointestinal History: [id number] Genitourinary History: Reports: Other (See Below) Other Genitourinary History: 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 fistula AUDIT ANALYST History: Reports: Dysfunctional Uterine Bleeding, Musculoskeletal History: Reports: Fracture Neurological History: Reports: Migraines Psychiatric History: Reports: Addiction, Anxiety, Depression Endocrine/Metabolic History: Reports: Hypothyroidism, Vitamin D Deficiency Hematologic History: Reports: Anemia, B12 Deficiency, Blood Transfusion(s), Iron Deficiency, Other (See Below) Other Hematologic History: vitamin D def. liver failure Dermatologic History: Reports: Other (See Below) Other Dermatologic History: sores on face, neck, hands and back - Infectious Disease History Infectious Disease History: Reports: Chicken Pox, Measles - Past Surgical History HEENT Surgical History: Reports: Oral Surgery Cardiovascular Surgical History: Reports: None Respiratory Surgical History: Reports: None GI Surgical History: Reports: Bariatric Procedure, Cholecystectomy, Colonoscopy, EGD Female Surgical History: Reports: Section, Hysterectomy, Tubal Ligation Endocrine Surgical History: Reports: None Musculoskeletal Surgical History: Reports: Other (See Below) Other Musculoskeletal Surgeries/Procedures:: Ankle plate/pin - hdwe removed Social & Family History - Family History Family Medical History: No Pertinent Family History Cardiac: Reports: NV - Tobacco Use Tobacco Use Status *Q: Current Every Day Tobacco User Years of Tobacco use: 30 Packs/Tins Daily: 1 - Caffeine Use Caffeine Use: Reports: Soda Caffeine Use Comment: occasional soda - Recreational Drug Use Recreational Drug Use: No - Living Situation & Occupation Living situation: Reports: Single Occupation: Disabled (has her own home- Daughter, her Daughter's Boyfriends and thier 3 children live with her. They assist her with medications .) ED ROS GENERAL - Review of Systems Review Of Systems: See Below Constitutional: Reports: Malaise, Decreased Appetite. Denies: Fever HEENT: Denies: Vision Change Respiratory: Denies: Shortness of Breath Cardiovascular: Denies: Chest Pain, Palpitations GI/Abdominal: Reports: Abdominal Pain, Diarrhea. Denies: Vomiting : Reports: Other (Dark urine) Skin: Reports: Other (Jaundice, pallor) Neurological: Reports: Confusion, Weakness ED EXAM, GENERAL - Physical Exam Exam: See Below Exam Limited By: Physical Impairment (Patient is not answering questions, is not cooperating due to lethargy and confusion) Eye Exam: Bilateral Eye: EOMI (Conjunctiva pale, sclerae jaundiced) Head: Atraumatic Respiratory/Chest: No Respiratory Distress, Lungs Clear Cardiovascular: Regular Rate, Rhythm GI/Abdominal: Soft, Tender (Mild tenderness to deep palpation diffusely, no significant distention) Extremities: Other (1+ pitting edema in the right lower extremity, trace edema on the left. She has a bandage over an open oozing sore on the top of the left foot) Neurological: Alert, Inattentive, Confused, Disoriented, Slow to Respond. No: Oriented Psychiatric: Depressed Mood, Flat Affect Skin Exam: Jaundice, Pallor Course - Vital Signs Last Recorded V/S: Last Vital Signs Temp 97.7 F 03/17/21 16:30 Pulse 66 03/17/21 17:17 Resp 16 03/17/21 14:26 BP 129/76 03/17/21 17:17 Pulse Ox 100 03/17/21 14:26 - Orders/Labs/Meds Orders: Active Orders 24 hr Category Date Time Status CULTURE URINE [RM] Stat Lab 03/17/21 16:58 Results Isolation [COMM] Stat Oth 03/17/21 15:10 Ordered Labs: Laboratory Tests 03/17/21 03/17/21 03/17/21 Range/Units 14:55 14:55 14:55 WBC 2.2 L (3.2-11.0) K/uL RBC 2.93 L (3.77-5.24) M/uL Hgb 9.8 L (11.2-15.5) Hct 30.5 L (34.3-46.0) % MCV 104.1 H (81.4-99.0) fL MCH 33.4 (31.6-35.5) pg MCHC 32.1 (31.6-35.5) g/dL Plt Count 105 L (130-375) K/uL Immature Gran % (Auto) 0.0 (0.0-0.7) % Neut % (Auto) 48.7 (40.0-78.1) % Lymph % (Auto) 36.2 (11.4-47.7) % Edmunds % (Auto) 12.5 (3.3-12.6) % Eos % (Auto) 2.2 (0.0-5.4) % Baso % (Auto) 0.4 (0.1-1.3) % Add Manual Diff Yes Neutrophils % (Manual) 52 (36-66) % Lymphocytes % (Manual) 40 (24-44) % Monocytes % (Manual) 6 (2-6) % Eosinophils % (Manual) 2 (2-4) % Atypical Lymphocytes Few Anisocytosis Few PT (9.2-10.6) sec INR Sodium 141 (140-148) mmol/L Potassium 3.9 (3.6-5.2) mmol/L Chloride 106 (100-108) mmol/L Carbon Dioxide 27 (21-32) mmol/L Anion Gap 7.7 (5.0-14.0) mmol/L BUN 6 L (7-18) mg/dL Creatinine 0.8 (0.6-1.0) mg/dL Est Cr Clr Drug Dosing TNP Estimated GFR (MDRD) > 60 (>60) Glucose 90 (74-106) mg/dL Calcium 9.5 (8.5-10.1) mg/dL Total Bilirubin 2.4 H (0.2-1.0) mg/dL AST 46 H (15-37) U/L ALT 30 (12-78) U/L Alkaline Phosphatase 115 (46-116) U/L Ammonia < 10 L (11-32) umol/L Total Protein 7.5 (6.4-8.2) g/dL Albumin 3.6 (3.4-5.0) g/dL Globulin 3.9 H (2.3-3.5) g/dL Albumin/Globulin Ratio 0.9 L (1.2-2.2) Urine Color (YELLOW) Urine Appearance (CLEAR) Urine pH (5.0-8.0) Ur Specific Herrick (1.008-1.030) Urine Protein (NEGATIVE) mg/dL Urine Glucose (UA) (NEGATIVE) mg/dL Urine Ketones (NEGATIVE) mg/dL Urine Occult Blood (NEGATIVE) Urine Nitrite (NEGATIVE) Urine Bilirubin (NEGATIVE) Urine Urobilinogen (0.2-1.0) EU/dL Ur Leukocyte Esterase (NEGATIVE) Urine RBC (0-5) Urine WBC (0-5) Ur Epithelial Cells Amorphous Sediment Urine Bacteria Urine Mucus Influenza Type A RNA (NEGATIVE) RSV RNA (INAAT) (NEGATIVE) Influenza Type B RNA (NEGATIVE) SARS-CoV-2 RNA (EDGAR) (NEGATIVE) 03/17/21 03/17/21 03/17/21 Range/Units 14:55 15:19 16:28 WBC (3.2-11.0) K/uL RBC (3.77-5.24) M/uL Hgb (11.2-15.5) Hct (34.3-46.0) % MCV (81.4-99.0) fL MCH (31.6-35.5) pg MCHC (31.6-35.5) g/dL Plt Count (130-375) K/uL Immature Gran % (Auto) (0.0-0.7) % Neut % (Auto) (40.0-78.1) % Lymph % (Auto) (11.4-47.7) % Edmunds % (Auto) (3.3-12.6) % Eos % (Auto) (0.0-5.4) % Baso % (Auto) (0.1-1.3) % Add Manual Diff Neutrophils % (Manual) (36-66) % Lymphocytes % (Manual) (24-44) % Monocytes % (Manual) (2-6) % Eosinophils % (Manual) (2-4) % Atypical Lymphocytes Anisocytosis PT 16.1 H (9.2-10.6) sec INR 1.6 Sodium (140-148) mmol/L Potassium (3.6-5.2) mmol/L Chloride (100-108) mmol/L Carbon Dioxide (21-32) mmol/L Anion Gap (5.0-14.0) mmol/L BUN (7-18) mg/dL Creatinine (0.6-1.0) mg/dL Est Cr Clr Drug Dosing Estimated GFR (MDRD) (>60) Glucose (74-106) mg/dL Calcium (8.5-10.1) mg/dL Total Bilirubin (0.2-1.0) mg/dL AST (15-37) U/L ALT (12-78) U/L Alkaline Phosphatase (46-116) U/L Ammonia (11-32) umol/L Total Protein (6.4-8.2) g/dL Albumin (3.4-5.0) g/dL Globulin (2.3-3.5) g/dL Albumin/Globulin Ratio (1.2-2.2) Urine Color Other A (YELLOW) Urine Appearance Slightly cloudy A (CLEAR) Urine pH 6.5 (5.0-8.0) Ur Specific Herrick >= 1.030 (1.008-1.030) Urine Protein Negative (NEGATIVE) mg/dL Urine Glucose (UA) Negative (NEGATIVE) mg/dL Urine Ketones Negative (NEGATIVE) mg/dL Urine Occult Blood Negative (NEGATIVE) Urine Nitrite Positive H (NEGATIVE) Urine Bilirubin Small (NEGATIVE) Urine Urobilinogen >=8.0 H (0.2-1.0) EU/dL Ur Leukocyte Esterase Trace H (NEGATIVE) Urine RBC 0-5 (0-5) Urine WBC 5-10 H (0-5) Ur Epithelial Cells Few Amorphous Sediment Not seen Urine Bacteria Moderate Urine Mucus Not seen Influenza Type A RNA Negative (NEGATIVE) RSV RNA (INAAT) Negative (NEGATIVE) Influenza Type B RNA Negative (NEGATIVE) SARS-CoV-2 RNA (EDGAR) Negative (NEGATIVE) Meds: Medications Discontinued Medications Generic Name Dose Route Start Last Admin Trade Name Freq PRN Reason Stop Dose Admin Cephalexin 500 mg 03/17/21 17:07 03/17/21 17:14 Cephalexin 250 Mg Cap PO 03/17/21 17:08 500 mg ONETIME ONE Administration - Re-Assessments/Exams Free Text/Narrative Re-Assessment/Exam: 03/17/21 15:10 CBC, CMP and ammonia level were obtained. 03/17/21 16:57 Surprisingly her ammonia level is less than 10, white count is 2200 and hemoglobin is 9.8 which is actually good for her. Her electrolytes are fairly normal. I mini cath UA was obtained and showed a few bacteria but no significant white cells. She was nitrite positive. This will be cultured and antibiotics called in if warranted. I would decrease her lactulose to 5 g twice daily to reduce the diarrhea. Departure - Departure Time of Disposition: 17:03 Disposition: Home, Self-Care 01 Clinical Impression: Medication side effect, Bacteriuria Cirrhosis of liver Qualifiers: Hepatic cirrhosis type: alcoholic cirrhosis Ascites presence: with ascites Qualified Code(s): K70.31 - Alcoholic cirrhosis of liver with ascites Fluid overload Qualifiers: Hypervolemia type: other Qualified Code(s): E87.79 - Other fluid overload - Discharge Information Instructions: Cirrhosis Referrals: Rick James MD [Primary Care Provider] - Forms: ED Department Discharge Care Plan Goals: Decrease lactulose to 5 g twice daily, and it is very important that you take the rest of your medications as prescribed. Wear your support stockings as instructed as well as follow with low-sodium diet limiting sodium to 2 g daily as instructed in the hospital on your discharge. We will contact you with urine culture results if anything needs changing with the antibiotic, which you should be taking twice daily starting tomorrow. Return if worsening such as fever, difficulty breathing, or concern about elevated ammonia levels. See Dr. James on Wednesday as scheduled. - My Orders Last 24 Hours: My Active Orders 03/17/21 15:10 Isolation [COMM] Stat 03/17/21 16:58 CULTURE URINE [RM] Stat - Assessment/Plan Last 24 Hours: My Active Orders 03/17/21 15:10 Isolation [COMM] Stat 03/17/21 16:58 CULTURE URINE [RM] Stat
[2021-03-17 15:55] LABS: CORONAVIRUS COVID-19 NAA NEGATIVE (NEGATIVE)
[2021-03-17] MEDS ORDERED: Cephalexin 250 MG Cap PO ONE (17:07)
[2021-03-17 17:18] VITALS: BP 129/76; PULSE 66
== END 2021-03-17 17:27 | disposition home or self-care (01) ==
LOC: JP.ED 14:06
DX: R60.0 Localized edema (principal); T50.905A Adverse effect of unspecified drugs, medicaments and biological substances, initial encounter; K70.31 Alcoholic cirrhosis of liver with ascites; E87.79 Other fluid overload; R82.71 Bacteriuria; I10 Essential (primary) hypertension; J45.909 Unspecified asthma, uncomplicated; K21.9 Gastro-esophageal reflux disease without esophagitis; D50.9 Iron deficiency anemia, unspecified; Z72.0 Tobacco use; Z88.1 Allergy status to other antibiotic agents; Z88.4 Allergy status to anesthetic agent; Z79.899 Other long term (current) drug therapy; Z20.822 Contact with and (suspected) exposure to COVID-19
CPT/HCPCS: 0241U; 36415; 80053; 81001; 82140; 85025; 85610; 87086; 87088; 87186; 99284; A9270

== ENCOUNTER 2021-04-26 09:36 | Inpatient (IN) | payer BC ==
[2021-04-26] MEDS ORDERED: Sodium Chloride 0.9% 1,000 ML IV SCH (10:45)
[2021-04-26] MEDS ORDERED: Sodium Chloride 0.9% 10 ML Syringe FLUSH PRN ×2 (10:45→16:58)
[2021-04-26 12:00] LABS: CORONAVIRUS COVID-19 NAA NEGATIVE (NEGATIVE)
[2021-04-26] MEDS ORDERED: Lactated Ringers 1,000 ML IV ONE (12:12)
[2021-04-26] MEDS ORDERED: Piperacillin/Tazobactam 3.375 GM in Sodium Chloride 0.9% 50 ML IV SCH (12:15)
[2021-04-26] MEDS ORDERED: Iopamidol 612 MG/ML 100 ML Bottle IV PRN (12:21)
[2021-04-26] MEDS ORDERED: Sodium Chloride 0.9% 50 ML IV SCH (12:30)
[2021-04-26] MEDS ORDERED: Albuterol 8 GM Inhaler INH PRN (16:58)
[2021-04-26] MEDS ORDERED: Ondansetron 4 MG/2 ML SDV IV PRN (16:58)
[2021-04-26] MEDS ORDERED: Albuterol 0.083% 2.5 MG/3 ML Neb Soln NEB PRN (16:58)
[2021-04-26] MEDS: Lactulose Soln 10 GM/15 ML 15 ML UD Cup PO SCH ×2 (17:53→21:05)
[2021-04-26] MEDS: Sodium Chloride 0.9% 1,000 ML IV SCH ×2 (18:09→23:27)
[2021-04-26] MEDS: Sucralfate 1 GM Tab PO SCH (20:21)
[2021-04-26] MEDS: Spironolactone 25 MG Tab PO SCH (21:05)
[2021-04-26] MEDS: Magnesium Oxide 400 MG Tab PO SCH (21:05)
[2021-04-26] MEDS ORDERED: Haloperidol Lactate 5 MG/ML SDV IVPUSH ONE (21:30)
[2021-04-26] MEDS ORDERED: Haloperidol Lactate 5 MG/ML SDV IVPUSH PRN (21:31)
[2021-04-27] MEDS: Lactulose Soln 10 GM/15 ML 15 ML UD Cup PO SCH ×2 (08:41→20:08)
[2021-04-27] MEDS: Magnesium Oxide 400 MG Tab PO SCH ×2 (08:41→20:07)
[2021-04-27] MEDS: Spironolactone 25 MG Tab PO SCH ×2 (08:41→20:07)
[2021-04-27] MEDS: Citalopram 20 MG Tab PO SCH (08:41)
[2021-04-27] MEDS: Sucralfate 1 GM Tab PO SCH ×4 (08:41→19:52)
[2021-04-27] MEDS: Pantoprazole 40 MG Tab.CR PO SCH (08:41)
[2021-04-27] MEDS: Magnesium Sulfate/Water 2 GM in Premix Bag 1 BAG IV SCH ×3 (09:36→18:17)
[2021-04-27] MEDS ORDERED: Haloperidol Lactate 5 MG/ML SDV IM ONE ×3 (13:26→22:33)
[2021-04-27] MEDS: Furosemide 20 MG Tab PO SCH (20:08)
[2021-04-27] MEDS ORDERED: Ondansetron 4 MG Tab.DIS PO PRN (23:19)
[2021-04-28] MEDS: Sucralfate 1 GM Tab PO SCH ×4 (07:24→20:30)
[2021-04-28] MEDS: Pantoprazole 40 MG Tab.CR PO SCH (07:24)
[2021-04-28] MEDS: Magnesium Oxide 400 MG Tab PO SCH ×2 (09:26→20:32)
[2021-04-28] MEDS: Spironolactone 25 MG Tab PO SCH ×2 (09:26→20:31)
[2021-04-28] MEDS: Citalopram 20 MG Tab PO SCH (09:26)
[2021-04-28] MEDS: Lactulose Soln 10 GM/15 ML 15 ML UD Cup PO SCH ×2 (09:26→20:33)
[2021-04-28] MEDS: Furosemide 20 MG Tab PO SCH ×3 (09:49→18:50)
[2021-04-28] MEDS: Haloperidol 1 MG Tab PO PRN (20:30)
[2021-04-29] MEDS: Pantoprazole 40 MG Tab.CR PO SCH (09:10)
[2021-04-29] MEDS: Sucralfate 1 GM Tab PO SCH ×4 (09:10→20:47)
[2021-04-29] MEDS: Magnesium Oxide 400 MG Tab PO SCH ×2 (09:10→20:48)
[2021-04-29] MEDS: Spironolactone 25 MG Tab PO SCH ×2 (09:10→20:47)
[2021-04-29] MEDS: Citalopram 20 MG Tab PO SCH (09:10)
[2021-04-29] MEDS: Lactulose Soln 10 GM/15 ML 15 ML UD Cup PO SCH ×2 (09:11→20:48)
[2021-04-29] MEDS: Furosemide 20 MG Tab PO SCH ×2 (09:11→17:37)
[2021-04-29] MEDS ORDERED: Thiamine 200 MG/2 ML MDV IM ONE (09:30)
[2021-04-29] MEDS: Cholecalciferol (Vitamin D3) 25 MCG Tab PO SCH (11:24)
[2021-04-29] MEDS: Multivitamins with Iron Tab.Chew CHEW SCH ×2 (11:24→20:47)
[2021-04-29] MEDS: Vitamin A 10,000 Unit Cap PO SCH ×2 (11:24→20:49)
[2021-04-29] MEDS: Thiamine 100 MG Tab PO SCH (11:24)
[2021-04-29] MEDS: Calcium Carbonate 500 MG Tab.Chew PO SCH ×2 (11:24→20:48)
[2021-04-29] MEDS: Zinc Sulfate 220 MG Cap PO SCH ×2 (11:24→20:49)
[2021-04-29] MEDS: Cyanocobalamin (Vitamin B12) 1,000 MCG Tab PO SCH (11:25)
[2021-04-29] MEDS: Potassium Chloride 20 MEQ Tab.ER PO SCH ×2 (16:20→20:48)
[2021-04-29] MEDS: Cupric Chloride 2 MG in Sodium Chloride 0.9% 250 ML IV SCH (16:27)
[2021-04-29] MEDS: Haloperidol 1 MG Tab PO PRN (22:59)
[2021-04-30] MEDS: Pantoprazole 40 MG Tab.CR PO SCH (07:26)
[2021-04-30] MEDS: Sucralfate 1 GM Tab PO SCH ×4 (07:26→19:24)
[2021-04-30] MEDS: Vitamin A 10,000 Unit Cap PO SCH ×2 (09:53→20:25)
[2021-04-30] MEDS: Magnesium Oxide 400 MG Tab PO SCH ×2 (09:55→20:29)
[2021-04-30] MEDS: Multivitamins with Iron Tab.Chew CHEW SCH ×2 (09:55→20:28)
[2021-04-30] MEDS: Calcium Carbonate 500 MG Tab.Chew PO SCH ×2 (09:55→20:26)
[2021-04-30] MEDS: Potassium Chloride 20 MEQ Tab.ER PO SCH ×2 (09:55→20:28)
[2021-04-30] MEDS: Zinc Sulfate 220 MG Cap PO SCH ×2 (09:55→20:29)
[2021-04-30] MEDS: Citalopram 20 MG Tab PO SCH (09:56)
[2021-04-30] MEDS: Lactulose Soln 10 GM/15 ML 15 ML UD Cup PO SCH ×2 (09:56→20:23)
[2021-04-30] MEDS: Furosemide 20 MG Tab PO SCH ×2 (09:56→17:36)
[2021-04-30] MEDS: Spironolactone 25 MG Tab PO SCH ×2 (09:56→20:27)
[2021-04-30] MEDS: Cyanocobalamin (Vitamin B12) 1,000 MCG Tab PO SCH (11:16)
[2021-04-30] MEDS: Cholecalciferol (Vitamin D3) 25 MCG Tab PO SCH (11:17)
[2021-04-30] MEDS: Thiamine 100 MG Tab PO SCH (11:17)
[2021-04-30] MEDS: Cupric Chloride 2 MG in Sodium Chloride 0.9% 250 ML IV SCH (11:30)
[2021-04-30] MEDS ORDERED: traMADol 50 MG Tab PO ONE (18:30)
[2021-04-30] MEDS ORDERED: Pantoprazole 40 MG Tab.CR PO ONE (19:00)
[2021-04-30] MEDS ORDERED: Ibuprofen 400 MG Tab PO PRN (20:53)
[2021-05-01] MEDS: Sucralfate 1 GM Tab PO SCH ×2 (08:17→10:41)
[2021-05-01] MEDS: Pantoprazole 40 MG Tab.CR PO SCH (08:17)
[2021-05-01] MEDS: Spironolactone 25 MG Tab PO SCH (09:27)
[2021-05-01] MEDS: Citalopram 20 MG Tab PO SCH (09:28)
[2021-05-01] MEDS: Multivitamins with Iron Tab.Chew CHEW SCH (09:28)
[2021-05-01] MEDS: Lactulose Soln 10 GM/15 ML 15 ML UD Cup PO SCH (09:29)
[2021-05-01] MEDS: Potassium Chloride 20 MEQ Tab.ER PO SCH (09:29)
[2021-05-01] MEDS: Calcium Carbonate 500 MG Tab.Chew PO SCH (09:30)
[2021-05-01] MEDS: Magnesium Oxide 400 MG Tab PO SCH (09:30)
[2021-05-01] MEDS: Vitamin A 10,000 Unit Cap PO SCH (09:30)
[2021-05-01] MEDS: Furosemide 20 MG Tab PO SCH (09:30)
[2021-05-01] MEDS: Zinc Sulfate 220 MG Cap PO SCH (09:31)
[2021-05-01] MEDS: Thiamine 100 MG Tab PO SCH (09:31)
[2021-05-01] MEDS: Cholecalciferol (Vitamin D3) 25 MCG Tab PO SCH (09:31)
[2021-05-01] MEDS: Cyanocobalamin (Vitamin B12) 1,000 MCG Tab PO SCH (09:31)
[2021-05-01 10:41] VITALS: BP 119/75; PULSE 82
[2021-05-01] MEDS ORDERED: Gabapentin 300 MG Cap PO ONE (11:00)
== END 2021-05-01 12:30 | disposition home health service (06) | DRG 52 ==
LOC: JP.ED 09:36 → JP.MS 14:34
PROVIDERS: ADMIT Hospitalist; ATTEND Internal Medicine
DX: G92.8 Other toxic encephalopathy (principal); T40.415A Adverse effect of fentanyl or fentanyl analogs, initial encounter; T42.6X5A Adverse effect of other antiepileptic and sedative-hypnotic drugs, initial encounter; K72.10 Chronic hepatic failure without coma; K70.30 Alcoholic cirrhosis of liver without ascites; D61.818 Other pancytopenia; I10 Essential (primary) hypertension; J45.909 Unspecified asthma, uncomplicated; K21.9 Gastro-esophageal reflux disease without esophagitis; Z20.822 Contact with and (suspected) exposure to COVID-19; F32.A Depression, unspecified; F41.9 Anxiety disorder, unspecified; E03.9 Hypothyroidism, unspecified; E55.9 Vitamin D deficiency, unspecified; E53.8 Deficiency of other specified B group vitamins; F17.200 Nicotine dependence, unspecified, uncomplicated; Z90.49 Acquired absence of other specified parts of digestive tract; Z88.1 Allergy status to other antibiotic agents; Z88.8 Allergy status to other drugs, medicaments and biological substances; Z79.899 Other long term (current) drug therapy; Z90.710 Acquired absence of both cervix and uterus
CPT/HCPCS: 0241U; 36415; 70450; 74177; 80048; 80053; 80307; 81001; 82140; 83605; 83690; 83735; 83880; 84145; 85025; 85027; 85610; 86140; 87040; 96365; 96366; 97110-GP; 97116-GP; 97162-GP; 97530-GP; 99283; 99285-25; A9270-GY; J1630; J2405; J2543; J3411; J3475; J7030; J7120; Q0162; Q9967

== ENCOUNTER 2021-05-06 00:42 | Emergency (ER) | payer BC ==
[2021-05-06 01:12] VITALS: BP 105/66; PULSE 102
== END 2021-05-06 02:20 | disposition home or self-care (01) ==
LOC: JP.ED 00:42
DX: K70.31 Alcoholic cirrhosis of liver with ascites (principal); K40.90 Unilateral inguinal hernia, without obstruction or gangrene, not specified as recurrent; K42.9 Umbilical hernia without obstruction or gangrene; I12.0 Hypertensive chronic kidney disease with stage 5 chronic kidney disease or end stage renal disease; N18.6 End stage renal disease; E03.9 Hypothyroidism, unspecified; Z88.1 Allergy status to other antibiotic agents; Z88.8 Allergy status to other drugs, medicaments and biological substances; Z79.899 Other long term (current) drug therapy; Z72.0 Tobacco use; Z98.84 Bariatric surgery status
CPT/HCPCS: 36415; 80053; 82140; 83690; 85025; 86140; 99283; 99284

== ENCOUNTER 2021-05-09 02:45 | Emergency (ER) | payer BC ==
[2021-05-09 03:10] VITALS: BP 123/80; PULSE 96
[2021-05-09] MEDS ORDERED: Aluminum Hydroxide/Magnesium Hydroxide/Simethicone Susp 30 ML Cup PO STA (04:13)
== END 2021-05-09 04:22 | disposition home or self-care (01) ==
LOC: JP.ED 02:45
DX: R14.0 Abdominal distension (gaseous) (principal); K72.10 Chronic hepatic failure without coma; R14.3 Flatulence; E72.20 Disorder of urea cycle metabolism, unspecified; F17.210 Nicotine dependence, cigarettes, uncomplicated; I10 Essential (primary) hypertension; F41.9 Anxiety disorder, unspecified; F32.9 Major depressive disorder, single episode, unspecified; K21.9 Gastro-esophageal reflux disease without esophagitis; Z79.899 Other long term (current) drug therapy; Z88.1 Allergy status to other antibiotic agents; Z88.8 Allergy status to other drugs, medicaments and biological substances
CPT/HCPCS: 36415; 74019; 74019-26; 80053; 82140; 85025; 99283; 99284; A9270-GY

== ENCOUNTER 2021-05-13 22:31 | Emergency (ER) | payer BC ==
[2021-05-13] MEDS ORDERED: Sodium Chloride 0.9% 10 ML Syringe FLUSH PRN (23:40)
[2021-05-13] MEDS ORDERED: Morphine 2 MG/ML SYRINGE IVPUSH ONE (23:42)
[2021-05-14] MEDS ORDERED: Morphine 2 MG/ML SYRINGE IVPUSH ONE (00:42)
[2021-05-14] MEDS ORDERED: Cephalexin 250 MG Cap PO ONE (00:49)
[2021-05-14] MEDS ORDERED: HYDROmorphone 0.5 MG/0.5 ML Syringe IVPUSH ONE (01:23)
[2021-05-14 01:30] VITALS: BP 120/68; PULSE 85
== END 2021-05-14 02:29 | disposition home or self-care (01) ==
LOC: JP.ED 22:31
DX: N39.0 Urinary tract infection, site not specified (principal); K72.10 Chronic hepatic failure without coma; R60.0 Localized edema; I11.0 Hypertensive heart disease with heart failure; D64.9 Anemia, unspecified; E87.1 Hypo-osmolality and hyponatremia; E88.09 Other disorders of plasma-protein metabolism, not elsewhere classified; K21.9 Gastro-esophageal reflux disease without esophagitis; J45.909 Unspecified asthma, uncomplicated; Z88.1 Allergy status to other antibiotic agents; Z88.8 Allergy status to other drugs, medicaments and biological substances; Z79.899 Other long term (current) drug therapy; Z72.0 Tobacco use
CPT/HCPCS: 36415; 71045; 80048; 80076; 81001; 84145; 85025; 85379; 86140; 87086; 87088; 87186; 96374; 96375; 96376; 99283; 99284-25; A9270-GY; J1170; J2270

== ENCOUNTER 2021-05-20 22:48 | Observation (INO) | payer BC ==
[2021-05-20] MEDS ORDERED: Sodium Chloride 0.9% 10 ML Syringe FLUSH PRN (23:06)
[2021-05-20] MEDS ORDERED: cefTRIAXone 1 GM in Sodium Chloride 0.9% 50 ML IV ONE (23:09)
[2021-05-20] MEDS ORDERED: HYDROmorphone 0.5 MG/0.5 ML Syringe IVPUSH ONE (23:24)
[2021-05-20] MEDS ORDERED: Ondansetron 4 MG/2 ML SDV IVPUSH ONE (23:34)
[2021-05-20] MEDS ORDERED: Sodium Chloride 0.9% 500 ML IV ONE (23:35)
[2021-05-20] MEDS ORDERED: Pantoprazole 40 MG Vial IVPUSH SCH (23:45)
[2021-05-21] MEDS ORDERED: 50% Dextrose in Water 50 ML Syringe IVPUSH ONE (00:26)
[2021-05-21 00:27] LABS: CORONAVIRUS COVID-19 NAA NEGATIVE (NEGATIVE)
[2021-05-21] MEDS ORDERED: Albuterol 8 GM Inhaler INH PRN (01:43)
[2021-05-21] MEDS ORDERED: Ondansetron 4 MG/2 ML SDV IVPUSH PRN (01:51)
[2021-05-21] MEDS: HYDROmorphone 0.5 MG/0.5 ML Syringe IVPUSH PRN ×3 (03:00→10:47)
[2021-05-21] MEDS ORDERED: Dextrose 5%-Lactated Ringers 1,000 ML IV SCH (07:15)
[2021-05-21] MEDS ORDERED: Propofol 200 MG/20 ML SDV ONE (07:21)
[2021-05-21] MEDS ORDERED: Midazolam 1 MG/ML 2 ML SDV ONE (07:22)
[2021-05-21] MEDS ORDERED: fentaNYL 100 MCG/2 ML SDV ONE (07:22)
[2021-05-21 11:16] VITALS: BP 114/69; PULSE 75
[2021-05-21] MEDS ORDERED: Pantoprazole 40 MG Vial IVPUSH SCH (11:30)
== END 2021-05-21 13:30 | disposition home or self-care (01) ==
LOC: JP.ED 22:48 → JP.MS 05-21 00:50
PROVIDERS: ADMIT Family Medicine; ATTEND Family Medicine
DX: K29.70 Gastritis, unspecified, without bleeding (principal); T18.8XXA Foreign body in other parts of alimentary tract, initial encounter; I85.00 Esophageal varices without bleeding; D64.9 Anemia, unspecified; K70.31 Alcoholic cirrhosis of liver with ascites; E16.2 Hypoglycemia, unspecified; E88.09 Other disorders of plasma-protein metabolism, not elsewhere classified; I10 Essential (primary) hypertension; E03.9 Hypothyroidism, unspecified; J45.909 Unspecified asthma, uncomplicated; F17.200 Nicotine dependence, unspecified, uncomplicated; Z01.812 Encounter for preprocedural laboratory examination; Z20.822 Contact with and (suspected) exposure to COVID-19; Z98.84 Bariatric surgery status; Z79.899 Other long term (current) drug therapy
CPT/HCPCS: 0241U; 36415; 80048; 80076; 82140; 85025; 85027; 85610; 85730; 86850; 86900; 86901; 96365; 96375; 96376; 99284; 99285-25; A9270-GY; C9113; G0378; J0696; J1170; J2250; J2405; J2704; J3010; J7040; J7121

== ENCOUNTER 2021-05-22 22:11 | Emergency (ER) | payer BC ==
[2021-05-22 22:34] VITALS: BP 117/73; PULSE 88
[2021-05-22] MEDS ORDERED: Sucralfate 1 GM Tab PO ONE (22:40)
[2021-05-23] MEDS ORDERED: HYDROmorphone 0.5 MG/0.5 ML Syringe IM ONE (00:10)
[2021-05-23] MEDS ORDERED: Ondansetron 4 MG Tab.DIS PO ONE (00:50)
== END 2021-05-23 01:13 | disposition home or self-care (01) ==
LOC: JP.ED 22:11
DX: K70.31 Alcoholic cirrhosis of liver with ascites (principal); I12.0 Hypertensive chronic kidney disease with stage 5 chronic kidney disease or end stage renal disease; N18.6 End stage renal disease; E72.20 Disorder of urea cycle metabolism, unspecified; R60.0 Localized edema; K21.9 Gastro-esophageal reflux disease without esophagitis; E03.9 Hypothyroidism, unspecified; Z88.1 Allergy status to other antibiotic agents; Z88.8 Allergy status to other drugs, medicaments and biological substances; Z79.899 Other long term (current) drug therapy
CPT/HCPCS: 36415; 80053; 82140; 83605; 83690; 85025; 86140; 96372; 99282; 99284; A9270-GY; J1170; Q0162

== ENCOUNTER 2021-06-05 22:46 | Emergency (ER) | payer BC ==
[2021-06-05 23:01] VITALS: BP 130/75; PULSE 111
[2021-06-05] MEDS ORDERED: Lactated Ringers 500 ML IV SCH (23:30)
== END 2021-06-06 00:21 | disposition home or self-care (01) ==
LOC: JP.ED 22:46
DX: K29.00 Acute gastritis without bleeding (principal); K92.0 Hematemesis; F17.210 Nicotine dependence, cigarettes, uncomplicated; I10 Essential (primary) hypertension; F41.9 Anxiety disorder, unspecified; F32.A Depression, unspecified; D64.9 Anemia, unspecified; Z79.899 Other long term (current) drug therapy; Z88.1 Allergy status to other antibiotic agents
CPT/HCPCS: 36415; 85025; 99283; 99284; J7120

== ENCOUNTER 2021-07-06 03:51 | Emergency (ER) | payer BC ==
[2021-07-06] MEDS ORDERED: Ketorolac 30 MG/ML SDV IM ONE (05:37)
[2021-07-06] MEDS ORDERED: Ketorolac 30 MG/ML SDV ONE (06:19)
[2021-07-06 08:58] VITALS: BP 113/74; PULSE 78
== END 2021-07-06 09:08 | disposition home or self-care (01) ==
LOC: JP.ED 03:51
DX: R07.89 Other chest pain (principal); I10 Essential (primary) hypertension; K21.9 Gastro-esophageal reflux disease without esophagitis; E03.9 Hypothyroidism, unspecified; Z88.1 Allergy status to other antibiotic agents; Z79.899 Other long term (current) drug therapy
CPT/HCPCS: 36415; 71045; 80053; 81001; 84484; 85025; 93005; 96372; 99285; J1885; 93010; 99283

== ENCOUNTER 2021-07-13 23:25 | Emergency (ER) | payer SELFPAY ==
[2021-07-13 23:44] VITALS: BP 136/78; PULSE 91
[2021-07-14] MEDS ORDERED: Alum Hydrox/Mag Hydrox/Simeth 15 ML, Lidocaine 2% 15 ML PO ONE ×2 (00:11)
[2021-07-14] MEDS ORDERED: Aluminum Hydroxide/Magnesium Hydroxide/Simethicone Susp 30 ML Cup ONE (00:17)
[2021-07-14] MEDS ORDERED: HYDROmorphone 1 MG/ML Syringe IM ONE (00:29)
== END 2021-07-14 01:16 | disposition home or self-care (01) ==
LOC: JP.ED 23:25
DX: R10.9 Unspecified abdominal pain (principal); G89.29 Other chronic pain; I10 Essential (primary) hypertension; K21.9 Gastro-esophageal reflux disease without esophagitis; E03.9 Hypothyroidism, unspecified; E66.9 Obesity, unspecified; Z68.29 Body mass index [BMI] 29.0-29.9, adult; Z88.1 Allergy status to other antibiotic agents; Z88.8 Allergy status to other drugs, medicaments and biological substances; Z72.0 Tobacco use
CPT/HCPCS: 96372; 99283; A9270; J1170

== ENCOUNTER 2021-07-16 23:08 | Emergency (ER) | payer SELFPAY ==
[2021-07-16 23:23] VITALS: BP 117/69; PULSE 86
== END 2021-07-17 00:22 | disposition home or self-care (01) ==
LOC: JP.ED 23:08
DX: K70.31 Alcoholic cirrhosis of liver with ascites (principal); I12.0 Hypertensive chronic kidney disease with stage 5 chronic kidney disease or end stage renal disease; N18.6 End stage renal disease; E87.1 Hypo-osmolality and hyponatremia; K21.9 Gastro-esophageal reflux disease without esophagitis; E03.9 Hypothyroidism, unspecified; E72.20 Disorder of urea cycle metabolism, unspecified; D61.818 Other pancytopenia; E66.9 Obesity, unspecified; Z68.30 Body mass index [BMI] 30.0-30.9, adult; Z88.1 Allergy status to other antibiotic agents; Z88.8 Allergy status to other drugs, medicaments and biological substances; Z79.899 Other long term (current) drug therapy
CPT/HCPCS: 36415; 80053; 82140; 83690; 85025; 85610; 99284

== ENCOUNTER 2021-08-05 13:40 | Emergency (ER) | payer SELFPAY ==
[2021-08-05 14:08] VITALS: BP 127/80; PULSE 82
[2021-08-05] MEDS ORDERED: Bacitracin Oint 1 GM U/D Packet TOP ONE (15:11)
[2021-08-05] MEDS ORDERED: Lidocaine 1% 5 ML VIAL INJECT ONE (15:11)
[2021-08-05] MEDS ORDERED: Diphtheria,Pertussis(Acell),Tetanus Vaccine 0.5 ML Syringe IM ONE (15:17)
== END 2021-08-05 17:04 | disposition home or self-care (01) ==
LOC: JP.ED 13:40
DX: S01.81XA Laceration without foreign body of other part of head, initial encounter (principal); I10 Essential (primary) hypertension; E03.9 Hypothyroidism, unspecified; E66.9 Obesity, unspecified; F17.210 Nicotine dependence, cigarettes, uncomplicated; Z68.30 Body mass index [BMI] 30.0-30.9, adult; Z88.1 Allergy status to other antibiotic agents; Z88.8 Allergy status to other drugs, medicaments and biological substances; Z23 Encounter for immunization; Z79.899 Other long term (current) drug therapy; W22.09XA Striking against other stationary object, initial encounter
CPT/HCPCS: 12041; 90471; 90715; 99282-25

== ENCOUNTER 2021-08-10 21:30 | Emergency (ER) | payer MEDICAID ==
[2021-08-10 21:44] VITALS: BP 104/64; PULSE 82
== END 2021-08-10 23:20 | disposition home or self-care (01) ==
LOC: JP.ED 21:30
DX: K76.9 Liver disease, unspecified (principal); I10 Essential (primary) hypertension; K21.9 Gastro-esophageal reflux disease without esophagitis; E03.9 Hypothyroidism, unspecified; F17.210 Nicotine dependence, cigarettes, uncomplicated; E66.9 Obesity, unspecified; Z88.1 Allergy status to other antibiotic agents; Z88.8 Allergy status to other drugs, medicaments and biological substances; Z68.29 Body mass index [BMI] 29.0-29.9, adult
CPT/HCPCS: 36415; 80048; 80076; 82140; 85025; 99282; 99284

== ENCOUNTER 2021-08-17 15:27 | Observation (INO) | payer MEDICAID ==
[2021-08-17 16:59] LABS: ESTIMATED GFR > 60 (>60)
[2021-08-17] MEDS ORDERED: Ondansetron 4 MG/2 ML SDV IVPUSH ONE (17:14)
[2021-08-17] MEDS ORDERED: Sodium Chloride 0.9% 1,000 ML IV SCH ×2 (17:15→20:15)
[2021-08-17] MEDS: cefTRIAXone 1 GM in Sodium Chloride 0.9% 50 ML IV SCH (18:15)
[2021-08-17 19:10] LABS: CORONAVIRUS COVID-19 NAA NEGATIVE (NEGATIVE)
[2021-08-17] MEDS ORDERED: LORazepam 2 MG/ML SDV IVPUSH PRN (20:07)
[2021-08-17] MEDS ORDERED: Magnesium Hydroxide 400 MG/5 ML Susp 30 ML Cup PO PRN (20:07)
[2021-08-17] MEDS ORDERED: Ondansetron 4 MG/2 ML SDV IV PRN (20:07)
[2021-08-17] MEDS ORDERED: Acetaminophen 325 MG Tab PO PRN (20:07)
[2021-08-17] MEDS ORDERED: Aluminum Hydroxide/Magnesium Hydroxide/Simethicone Susp 30 ML Cup PO PRN (20:14)
[2021-08-17] MEDS ORDERED: Pantoprazole 40 MG Vial IV SCH (20:15)
[2021-08-17] MEDS: Nicotine 14 MG/24 Hr Patch TRDERM SCH (20:56)
[2021-08-17] MEDS ORDERED: Magnesium Sulfate/Water 2 GM in Premix Bag 1 BAG IV ONE (20:58)
[2021-08-17] MEDS ORDERED: Ketorolac 30 MG/ML SDV IVPUSH PRN (21:00)
[2021-08-17] MEDS ORDERED: hydrOXYzine HCl 25 MG Tab PO PRN (21:01)
[2021-08-17] MEDS: Furosemide 20 MG Tab PO SCH (21:44)
[2021-08-17] MEDS: Sucralfate 1 GM Tab PO SCH (22:10)
[2021-08-17] MEDS: Lactulose Soln 10 GM/15 ML 15 ML UD Cup PO SCH (22:11)
[2021-08-18] MEDS: Sucralfate 1 GM Tab PO SCH ×3 (03:29→16:05)
[2021-08-18 05:21] LABS: ESTIMATED GFR > 60 (>60)
[2021-08-18] MEDS ORDERED: Spironolactone 25 MG Tab PO SCH (09:00)
[2021-08-18] MEDS ORDERED: Pneumococcal Polyvalent-23 Vaccine 0.5 ML SDV IM ONE (09:00)
[2021-08-18] MEDS ORDERED: Vitamin A 10,000 Unit Cap PO SCH (09:00)
[2021-08-18] MEDS ORDERED: cefTRIAXone 1 GM in Sodium Chloride 0.9% 50 ML IV SCH (09:00)
[2021-08-18] MEDS ORDERED: Furosemide 40 MG Tab PO SCH (09:00)
[2021-08-18] MEDS ORDERED: Citalopram 20 MG Tab PO SCH (09:00)
[2021-08-18] MEDS ORDERED: Magnesium Oxide 400 MG Tab PO SCH (09:00)
[2021-08-18] MEDS ORDERED: Zinc Sulfate 220 MG Cap PO SCH (09:00)
[2021-08-18] MEDS: Gabapentin 300 MG Cap PO SCH ×2 (09:17→14:33)
[2021-08-18] MEDS: Lactulose Soln 10 GM/15 ML 15 ML UD Cup PO SCH (09:17)
[2021-08-18] MEDS: Nicotine 14 MG/24 Hr Patch TRDERM SCH ×2 (09:17→09:22)
[2021-08-18] MEDS: Dicyclomine 10 MG Cap PO SCH ×2 (09:17→14:33)
[2021-08-18 16:04] VITALS: BP 102/59; PULSE 89
[2021-08-18] MEDS: Furosemide 20 MG Tab PO SCH (16:06)
[2021-08-18] MEDS: cefTRIAXone 1 GM in Sodium Chloride 0.9% 50 ML IV SCH (16:59)
[2021-08-18] MEDS ORDERED: Pantoprazole 40 MG Vial IV SCH (21:00)
== END 2021-08-18 17:53 | disposition home or self-care (01) ==
LOC: JP.ED 15:27 → INTOOBSV 19:10 → JP.MS 19:10
PROVIDERS: ADMIT Hospitalist; ATTEND Internal Medicine
DX: N39.0 Urinary tract infection, site not specified (principal); K70.30 Alcoholic cirrhosis of liver without ascites; I10 Essential (primary) hypertension; E53.8 Deficiency of other specified B group vitamins; D64.9 Anemia, unspecified; K21.9 Gastro-esophageal reflux disease without esophagitis; G43.909 Migraine, unspecified, not intractable, without status migrainosus; F41.9 Anxiety disorder, unspecified; F32.A Depression, unspecified; E03.9 Hypothyroidism, unspecified; E66.9 Obesity, unspecified; E55.9 Vitamin D deficiency, unspecified; F17.210 Nicotine dependence, cigarettes, uncomplicated; E83.42 Hypomagnesemia; D61.818 Other pancytopenia; Z20.822 Contact with and (suspected) exposure to COVID-19; Z88.1 Allergy status to other antibiotic agents; Z88.8 Allergy status to other drugs, medicaments and biological substances; Z79.899 Other long term (current) drug therapy; Z98.890 Other specified postprocedural states
CPT/HCPCS: 0241U; 36415; 74176; 80053; 80307; 81001; 82140; 82150; 82607; 83690; 83735; 85025; 85027; 85610; 87086; 87088; 87186; 90732; 96361; 96365; 96374; 96375; 99222; 99238; 99285; 99285-25; A9270-GY; C9113; G0378; J0696; J1885; J2405; J3475; J7030

== ENCOUNTER 2021-09-03 23:01 | Emergency (ER) | payer MEDICAID ==
[2021-09-03 23:15] VITALS: PULSE 103
[2021-09-04 00:05] LABS: ESTIMATED GFR 107 mL/min (>60)
[2021-09-04] MEDS ORDERED: Iopamidol 612 MG/ML 100 ML Bottle IV STA (00:30)
[2021-09-04] MEDS ORDERED: Sodium Chloride 0.9% 50 ML IV STA (00:30)
[2021-09-04 01:45] VITALS: BP 112/66
== END 2021-09-04 02:00 | disposition home or self-care (01) ==
LOC: JP.ED 23:01
DX: K70.30 Alcoholic cirrhosis of liver without ascites (principal); I10 Essential (primary) hypertension; K21.9 Gastro-esophageal reflux disease without esophagitis; E66.9 Obesity, unspecified; Z68.32 Body mass index [BMI] 32.0-32.9, adult; Z88.1 Allergy status to other antibiotic agents; Z79.899 Other long term (current) drug therapy
CPT/HCPCS: 36415; 74177; 80053; 80307; 81001; 82140; 85025; 86140; 99284; J3490; Q9967

== ENCOUNTER 2021-09-21 18:40 | Emergency (ER) | payer MEDICAID ==
[2021-09-21 19:11] VITALS: BP 119/75; PULSE 100
[2021-09-21] MEDS ORDERED: Sodium Chloride 0.9% 10 ML Syringe FLUSH PRN (19:43)
[2021-09-21 20:27] LABS: ESTIMATED GFR 91 mL/min (>60)
== END 2021-09-21 21:25 | disposition home or self-care (01) ==
LOC: JP.ED 18:40
DX: K70.30 Alcoholic cirrhosis of liver without ascites (principal); E87.6 Hypokalemia; E72.20 Disorder of urea cycle metabolism, unspecified; F41.9 Anxiety disorder, unspecified; E64.9 Sequelae of unspecified nutritional deficiency; I10 Essential (primary) hypertension; E66.9 Obesity, unspecified; Z68.31 Body mass index [BMI] 31.0-31.9, adult; Z88.1 Allergy status to other antibiotic agents; Z88.8 Allergy status to other drugs, medicaments and biological substances; Z79.899 Other long term (current) drug therapy; Z90.49 Acquired absence of other specified parts of digestive tract; Z90.710 Acquired absence of both cervix and uterus; Z20.822 Contact with and (suspected) exposure to COVID-19
CPT/HCPCS: 36415; 74022; 80053; 81001; 82140; 83690; 85025; 85610; 87635; 99284; J3490; U0002

== ENCOUNTER 2021-10-25 18:47 | Emergency (ER) | payer MEDICAID ==
[2021-10-25] MEDS ORDERED: Sodium Chloride 0.9% 10 ML Syringe FLUSH PRN (21:53)
[2021-10-25] MEDS ORDERED: Prochlorperazine 10 MG/2 ML SDV IVPUSH ONE (21:58)
[2021-10-25] MEDS ORDERED: fentaNYL 100 MCG/2 ML SDV IVPUSH ONE (21:58)
[2021-10-25] MEDS ORDERED: Lactated Ringers 1,000 ML IV SCH (22:00)
[2021-10-25] MEDS ORDERED: Iopamidol 612 MG/ML 100 ML Bottle IV PRN (22:09)
[2021-10-25] MEDS ORDERED: Sodium Chloride 0.9% 50 ML IV SCH (22:15)
[2021-10-25 22:23] VITALS: BP 110/73; PULSE 83
[2021-10-25 22:36] LABS: ESTIMATED GFR 69 mL/min (>60); TROPONIN I HIGH SENSITIVITY 17.4 pg/mL (<=60.3)
[2021-10-25] MEDS ORDERED: HYDROmorphone 0.5 MG/0.5 ML Syringe IVPUSH ONE (22:53)
== END 2021-10-26 00:05 | disposition home or self-care (01) ==
LOC: JP.ED 18:47
DX: K86.1 Other chronic pancreatitis (principal); I10 Essential (primary) hypertension; F17.210 Nicotine dependence, cigarettes, uncomplicated; Z88.1 Allergy status to other antibiotic agents; Z88.8 Allergy status to other drugs, medicaments and biological substances; Z79.899 Other long term (current) drug therapy; Z90.49 Acquired absence of other specified parts of digestive tract; Z90.710 Acquired absence of both cervix and uterus
CPT/HCPCS: 36415; 74177; 80053; 80305; 80307; 81001; 82140; 83605; 83690; 84145; 84484; 85025; 86140; 96374; 96375; 99284; J0780; J1170; J3490; Q9967

== ENCOUNTER 2021-11-12 00:07 | Emergency (ER) | payer MEDICAID ==
[2021-11-12 00:19] VITALS: BP 104/64; PULSE 91
[2021-11-12 01:10] LABS: ESTIMATED GFR 62 mL/min (>60)
== END 2021-11-12 01:45 | disposition home or self-care (01) ==
LOC: JP.ED 00:07
DX: K72.90 Hepatic failure, unspecified without coma (principal); E72.20 Disorder of urea cycle metabolism, unspecified; K21.9 Gastro-esophageal reflux disease without esophagitis; I10 Essential (primary) hypertension; F17.210 Nicotine dependence, cigarettes, uncomplicated; E66.9 Obesity, unspecified; Z68.31 Body mass index [BMI] 31.0-31.9, adult; Z88.1 Allergy status to other antibiotic agents; Z88.8 Allergy status to other drugs, medicaments and biological substances; Z79.899 Other long term (current) drug therapy; Z90.49 Acquired absence of other specified parts of digestive tract; Z90.710 Acquired absence of both cervix and uterus; Z20.822 Contact with and (suspected) exposure to COVID-19
CPT/HCPCS: 36415; 80053; 81001; 82140; 83605; 83690; 85025; 86140; 99284; U0002

== ENCOUNTER 2021-12-18 17:20 | Emergency (ER) | payer MEDICAID ==
[2021-12-18 17:39] VITALS: BP 125/76; PULSE 92
[2021-12-18 19:11] LABS: ESTIMATED GFR 69 mL/min (>60)
== END 2021-12-18 20:23 | disposition home or self-care (01) ==
LOC: JP.ED 17:20
DX: R14.3 Flatulence (principal); E72.20 Disorder of urea cycle metabolism, unspecified; I10 Essential (primary) hypertension; F17.210 Nicotine dependence, cigarettes, uncomplicated; E66.9 Obesity, unspecified; Z68.31 Body mass index [BMI] 31.0-31.9, adult; Z88.1 Allergy status to other antibiotic agents; Z88.8 Allergy status to other drugs, medicaments and biological substances; Z79.899 Other long term (current) drug therapy; Z90.49 Acquired absence of other specified parts of digestive tract; Z90.710 Acquired absence of both cervix and uterus
CPT/HCPCS: 36415; 74019; 74019-26; 80053; 80307; 81001; 82140; 83605; 83690; 85025; 99284

== ENCOUNTER 2022-03-07 21:09 | Emergency (ER) | payer MEDICAID ==
[2022-03-07 21:18] VITALS: BP 132/86; PULSE 92
[2022-03-07 22:23] LABS: ESTIMATED GFR 91 mL/min (>60)
[2022-03-07] MEDS ORDERED: Ketorolac 30 MG/ML SDV IM ONE (23:34)
== END 2022-03-08 00:47 | disposition home or self-care (01) ==
LOC: JP.ED 21:09
DX: S30.1XXA Contusion of abdominal wall, initial encounter (principal); K59.00 Constipation, unspecified; I10 Essential (primary) hypertension; E03.9 Hypothyroidism, unspecified; K21.9 Gastro-esophageal reflux disease without esophagitis; F17.210 Nicotine dependence, cigarettes, uncomplicated; E66.9 Obesity, unspecified; Z68.32 Body mass index [BMI] 32.0-32.9, adult; Z88.1 Allergy status to other antibiotic agents; Z88.8 Allergy status to other drugs, medicaments and biological substances; W22.09XA Striking against other stationary object, initial encounter
CPT/HCPCS: 36415; 74022; 80053; 81001; 85025; 87086; 87088; 87186; 96372; 99284; J1885

== ENCOUNTER 2022-05-23 22:32 | Emergency (ER) | payer MEDICAID ==
[2022-05-23] MEDS ORDERED: Metoclopramide 10 MG/2 ML SDV IVPUSH ONE (22:43)
[2022-05-23] MEDS ORDERED: Sodium Chloride 0.9% 10 ML Syringe FLUSH PRN (22:43)
[2022-05-23 23:11] LABS: ESTIMATED GFR 69 mL/min (>60)
[2022-05-24 00:38] VITALS: BP 100/59; PULSE 75
== END 2022-05-24 00:36 | disposition home or self-care (01) ==
LOC: JP.ED 22:32
DX: R10.84 Generalized abdominal pain (principal); E72.20 Disorder of urea cycle metabolism, unspecified; K72.10 Chronic hepatic failure without coma; R11.14 Bilious vomiting; I10 Essential (primary) hypertension; J45.909 Unspecified asthma, uncomplicated; K21.9 Gastro-esophageal reflux disease without esophagitis; E03.9 Hypothyroidism, unspecified; Z88.1 Allergy status to other antibiotic agents; Z88.4 Allergy status to anesthetic agent; Z79.899 Other long term (current) drug therapy; Z87.891 Personal history of nicotine dependence; Z98.84 Bariatric surgery status
CPT/HCPCS: 36415; 80053; 82140; 83605; 83690; 85025; 85610; 85730; 96374; 99284; J2765; J3490

== ENCOUNTER 2022-06-03 23:15 | Emergency (ER) | payer MEDICAID, OTHER ==
[2022-06-03 23:29] VITALS: BP 125/77; PULSE 93
[2022-06-03] MEDS ORDERED: Cephalexin 250 MG Cap PO ONE (23:58)
[2022-06-03] MEDS ORDERED: Fluconazole 150 MG Tab PO ONE (23:58)
[2022-06-03] MEDS ORDERED: HYDROmorphone 0.5 MG/0.5 ML Syringe IM ONE (23:59)
== END 2022-06-04 00:33 | disposition home or self-care (01) ==
LOC: JP.ED 23:15
DX: L03.314 Cellulitis of groin (principal); B37.9 Candidiasis, unspecified; I10 Essential (primary) hypertension; K21.9 Gastro-esophageal reflux disease without esophagitis; E66.9 Obesity, unspecified; Z68.33 Body mass index [BMI] 33.0-33.9, adult; Z88.1 Allergy status to other antibiotic agents; Z88.4 Allergy status to anesthetic agent; Z72.0 Tobacco use; Z79.899 Other long term (current) drug therapy
CPT/HCPCS: 36415; 85025; 96372; 99284; A9270; J1170

== ENCOUNTER 2022-06-15 22:38 | Emergency (ER) | payer MEDICAID ==
[2022-06-15] MEDS ORDERED: Ketorolac 30 MG/ML SDV IM ONE (22:58)
[2022-06-15] MEDS ORDERED: Albuterol/Ipratropium 3.0-0.5 MG/3 ML Neb Soln NEB ONE (22:58)
[2022-06-15 23:39] LABS: CORONAVIRUS COVID-19 NAA NEGATIVE (NEGATIVE)
[2022-06-16 00:03] VITALS: BP 126/70; PULSE 91
== END 2022-06-16 00:12 | disposition home or self-care (01) ==
LOC: JP.ED 22:38
DX: G44.209 Tension-type headache, unspecified, not intractable (principal); J40 Bronchitis, not specified as acute or chronic; I10 Essential (primary) hypertension; E03.9 Hypothyroidism, unspecified; E66.9 Obesity, unspecified; Z68.31 Body mass index [BMI] 31.0-31.9, adult; Z88.1 Allergy status to other antibiotic agents; Z88.8 Allergy status to other drugs, medicaments and biological substances; Z20.822 Contact with and (suspected) exposure to COVID-19
CPT/HCPCS: 0241U; 94640; 96372; 99284; J1885; J7620

== ENCOUNTER 2022-08-16 12:29 | Emergency (ER) | payer MEDICAID, OTHER ==
[2022-08-16 13:05] VITALS: BP 145/91; PULSE 84
[2022-08-16 13:06] LABS: BASOPHILS ABSOLUTE AUTO 0.03 K/uL (0.00-0.10); BASOPHILS PERCENT AUTO 0.7 % (0.1-1.3); EOSINOPHILS ABSOLUTE AUTO 0.21 K/uL (0.00-0.40); HEMATOCRIT 33.6 % (34.3-46.0); HEMOGLOBIN 11.2 g/dL (11.2-15.5); IMMATURE GRAN PERCENT AUTO 0.5 % (0.0-0.7); LYMPHOCYTES ABSOLUTE AUTO 1.61 K/uL (0.8-3.3); LYMPHOCYTES PERCENT AUTO 38.2 % (11.4-47.7); MEAN CORPUSCULAR HEMOGLOBIN 30.4 pg (31.6-35.5); MEAN CORPUSCULAR HGB CONC 33.3 g/dL (31.6-35.5); MEAN CORPUSCULAR VOLUME 91.3 fL (81.4-99.0); MONOCYTES ABSOLUTE AUTO 0.49 K/uL (0.20-0.90); MONOCYTES PERCENT AUTO 11.6 % (3.3-12.6); NEUTROPHILS ABSOLUTE AUTO 1.85 K/uL (1.0-7.6); PLATELET COUNT,PLT 184 K/uL (130-375); RED BLOOD CELL COUNT 3.68 M/uL (3.77-5.24); WHITE BLOOD CELL COUNT,WBC 4.2 K/uL (3.2-11.0)
[2022-08-16 13:16] LABS: IMMATURE GRAN ABSOLUTE AUTO 0.02 K/uL (0.00-0.23)
== END 2022-08-16 13:36 | disposition home or self-care (01) ==
LOC: JP.ED 12:29
DX: Z48.01 Encounter for change or removal of surgical wound dressing (principal); I10 Essential (primary) hypertension; J45.909 Unspecified asthma, uncomplicated; K21.9 Gastro-esophageal reflux disease without esophagitis; E66.9 Obesity, unspecified; Z68.31 Body mass index [BMI] 31.0-31.9, adult; Z88.1 Allergy status to other antibiotic agents; Z88.4 Allergy status to anesthetic agent; Z79.899 Other long term (current) drug therapy
CPT/HCPCS: 36415; 85025; 86140; 99283

== ENCOUNTER 2022-10-03 20:43 | Emergency (ER) | payer MEDICAID ==
[2022-10-03 23:28] VITALS: BP 128/80; PULSE 75
[2022-10-04 00:27] LABS: BASOPHILS PERCENT AUTO 0.6 % (0.1-1.3); EOSINOPHILS ABSOLUTE AUTO 0.14 K/uL (0.00-0.40); EOSINOPHILS PERCENT AUTO 3.9 % (0.0-5.4); HEMATOCRIT 34.8 % (34.3-46.0); HEMOGLOBIN 11.7 g/dL (11.2-15.5); IMMATURE GRAN PERCENT AUTO 0.6 % (0.0-0.7); LYMPHOCYTES ABSOLUTE AUTO 1.28 K/uL (0.8-3.3); LYMPHOCYTES PERCENT AUTO 35.4 % (11.4-47.7); MEAN CORPUSCULAR HEMOGLOBIN 29.8 pg (31.6-35.5); MEAN CORPUSCULAR HGB CONC 33.6 g/dL (31.6-35.5); MEAN CORPUSCULAR VOLUME 88.8 fL (81.4-99.0); MONOCYTES ABSOLUTE AUTO 0.43 K/uL (0.20-0.90); MONOCYTES PERCENT AUTO 11.9 % (3.3-12.6); NEUTROPHILS ABSOLUTE AUTO 1.73 K/uL (1.0-7.6); NEUTROPHILS PERCENT AUTO 47.6 % (40.0-78.1); PLATELET COUNT,PLT 145 K/uL (130-375); RED BLOOD CELL COUNT 3.92 M/uL (3.77-5.24); WHITE BLOOD CELL COUNT,WBC 3.6 K/uL (3.2-11.0)
[2022-10-04 00:33] LABS: BASOPHILS ABSOLUTE AUTO 0.02 K/uL (0.00-0.10); IMMATURE GRAN ABSOLUTE AUTO 0.02 K/uL (0.00-0.23)
[2022-10-04 00:49] LABS: A/G RATIO 0.8 (1.2-2.2); ALANINE AMINOTRANSFERASE,ALT 20 U/L (12-78); ALBUMIN 3.7 g/dL (3.4-5.0); ALKALINE PHOSPHATASE 163 U/L (46-116); ANION GAP 10.3 mmol/L (5.0-14.0); ASPARTATE AMNIOTRANSFERASE,AST 24 U/L (15-37); BILIRUBIN TOTAL 0.4 mg/dL (0.2-1.0); BLOOD UREA NITROGEN,BUN 11 mg/dL (7-18); CARBON DIOXIDE,CO2 29 mmol/L (21-32); CHLORIDE,CL 96 mmol/L (100-108); CREATININE 0.9 mg/dL (0.6-1.0); EST CRCL DRUG DOSING (CG) 62.55 mL/min; ESTIMATED GFR 78 mL/min (>60); GLUCOSE RANDOM 108 mg/dL (74-106); POTASSIUM,K 4.3 mmol/L (3.6-5.2); PROTEIN TOTAL,TP 8.4 g/dL (6.4-8.2); SODIUM,NA 131 mmol/L (140-148)
[2022-10-04 01:00] LABS: T4 FREE 0.85 ng/dL (0.76-1.46); TSH ULTRASENSITIVE 6.132 uIU/mL (0.358-3.740)
== END 2022-10-04 01:24 | disposition home or self-care (01) ==
LOC: JP.ED 20:43
DX: K72.10 Chronic hepatic failure without coma (principal); E87.1 Hypo-osmolality and hyponatremia; F41.9 Anxiety disorder, unspecified; I10 Essential (primary) hypertension; J45.909 Unspecified asthma, uncomplicated; K21.9 Gastro-esophageal reflux disease without esophagitis; F17.210 Nicotine dependence, cigarettes, uncomplicated; E66.9 Obesity, unspecified; Z68.32 Body mass index [BMI] 32.0-32.9, adult; Z88.1 Allergy status to other antibiotic agents; Z88.4 Allergy status to anesthetic agent
CPT/HCPCS: 36415; 80053; 82140; 83690; 84439; 84443; 85025; 99284

== ENCOUNTER 2022-10-19 21:26 | Emergency (ER) | payer MEDICAID ==
[2022-10-19 22:33] VITALS: BP 126/80; PULSE 87
[2022-10-19 22:41] LABS: BASOPHILS PERCENT AUTO 0.6 % (0.1-1.3); EOSINOPHILS ABSOLUTE AUTO 0.12 K/uL (0.00-0.40); EOSINOPHILS PERCENT AUTO 3.8 % (0.0-5.4); HEMATOCRIT 32.7 % (34.3-46.0); HEMOGLOBIN 10.9 g/dL (11.2-15.5); LYMPHOCYTES ABSOLUTE AUTO 1.16 K/uL (0.8-3.3); LYMPHOCYTES PERCENT AUTO 37.1 % (11.4-47.7); MEAN CORPUSCULAR HEMOGLOBIN 29.5 pg (31.6-35.5); MEAN CORPUSCULAR HGB CONC 33.3 g/dL (31.6-35.5); MEAN CORPUSCULAR VOLUME 88.6 fL (81.4-99.0); MONOCYTES ABSOLUTE AUTO 0.48 K/uL (0.20-0.90); MONOCYTES PERCENT AUTO 15.3 % (3.3-12.6); NEUTROPHILS ABSOLUTE AUTO 1.35 K/uL (1.0-7.6); NEUTROPHILS PERCENT AUTO 43.2 % (40.0-78.1); PLATELET COUNT,PLT 133 K/uL (130-375); RED BLOOD CELL COUNT 3.69 M/uL (3.77-5.24); WHITE BLOOD CELL COUNT,WBC 3.1 K/uL (3.2-11.0)
[2022-10-19 22:49] LABS: BASOPHILS ABSOLUTE AUTO 0.02 K/uL (0.00-0.10)
[2022-10-19 22:58] LABS: A/G RATIO 0.7 (1.2-2.2); ALANINE AMINOTRANSFERASE,ALT 30 U/L (12-78); ALBUMIN 3.4 g/dL (3.4-5.0); ALKALINE PHOSPHATASE 162 U/L (46-116); ASPARTATE AMNIOTRANSFERASE,AST 23 U/L (15-37); BILIRUBIN TOTAL 0.3 mg/dL (0.2-1.0); BLOOD UREA NITROGEN,BUN 13 mg/dL (7-18); C-REACTIVE PROTEIN 0.76 mg/dL (0.0-0.3); CARBON DIOXIDE,CO2 31 mmol/L (21-32); CHLORIDE,CL 96 mmol/L (100-108); CREATININE 0.9 mg/dL (0.6-1.0); EST CRCL DRUG DOSING (CG) 62.55 mL/min; ESTIMATED GFR 78 mL/min (>60); GLUCOSE RANDOM 83 mg/dL (74-106); SODIUM,NA 131 mmol/L (140-148)
== END 2022-10-19 23:53 | disposition home or self-care (01) ==
LOC: JP.ED 21:26
DX: K74.60 Unspecified cirrhosis of liver (principal); K72.10 Chronic hepatic failure without coma; I10 Essential (primary) hypertension; J45.909 Unspecified asthma, uncomplicated; K21.9 Gastro-esophageal reflux disease without esophagitis; Z88.1 Allergy status to other antibiotic agents; Z88.8 Allergy status to other drugs, medicaments and biological substances; Z79.899 Other long term (current) drug therapy; Z72.0 Tobacco use
CPT/HCPCS: 36415; 80053; 82140; 85025; 86140; 99284; 99285

== ENCOUNTER 2022-12-11 19:57 | Emergency (ER) | payer MEDICAID ==
[2022-12-11 20:18] VITALS: BP 149/98; PULSE 85
[2022-12-11 20:47] LABS: BASOPHILS PERCENT AUTO 0.5 % (0.1-1.3); EOSINOPHILS ABSOLUTE AUTO 0.11 K/uL (0.00-0.40); HEMATOCRIT 34.3 % (34.3-46.0); HEMOGLOBIN 11.6 g/dL (11.2-15.5); IMMATURE GRAN PERCENT AUTO 0.3 % (0.0-0.7); LYMPHOCYTES ABSOLUTE AUTO 1.14 K/uL (0.8-3.3); LYMPHOCYTES PERCENT AUTO 30.7 % (11.4-47.7); MEAN CORPUSCULAR HEMOGLOBIN 29.4 pg (31.6-35.5); MEAN CORPUSCULAR HGB CONC 33.8 g/dL (31.6-35.5); MEAN CORPUSCULAR VOLUME 86.8 fL (81.4-99.0); MONOCYTES ABSOLUTE AUTO 0.45 K/uL (0.20-0.90); MONOCYTES PERCENT AUTO 12.1 % (3.3-12.6); NEUTROPHILS ABSOLUTE AUTO 1.98 K/uL (1.0-7.6); NEUTROPHILS PERCENT AUTO 53.4 % (40.0-78.1); PLATELET COUNT,PLT 168 K/uL (130-375); RED BLOOD CELL COUNT 3.95 M/uL (3.77-5.24); WHITE BLOOD CELL COUNT,WBC 3.7 K/uL (3.2-11.0)
[2022-12-11 20:48] LABS: APPEARANCE,URINE CLEAR (CLEAR); BILIRUBIN,URINE NEGATIVE (NEGATIVE); COLOR,URINE YELLOW (YELLOW); GLUCOSE,URINE NEGATIVE (NEGATIVE); KETONES,URINE NEGATIVE (NEGATIVE); LEUKOCYTE ESTERASE,URINE NEGATIVE (NEGATIVE); NITRITE,URINE NEGATIVE (NEGATIVE); OCCULT BLOOD,URINE NEGATIVE (NEGATIVE); PH,URINE 6.5 (5.0-8.0); PROTEIN,URINE NEGATIVE (NEGATIVE)
[2022-12-11 20:50] LABS: BASOPHILS ABSOLUTE AUTO 0.02 K/uL (0.00-0.10); IMMATURE GRAN ABSOLUTE AUTO 0.01 K/uL (0.00-0.23)
[2022-12-11 20:55] LABS: AMORPHOUS SEDIMENT,URINE NOT SEEN; BACTERIA,URINE FEW; EPITHELIAL CELLS,URINE RARE; MUCUS,URINE RARE; RBC,URINE 0-5 (0-5); WBC,URINE 0-5 (0-5)
[2022-12-11 21:08] LABS: A/G RATIO 0.8 (1.2-2.2); ALANINE AMINOTRANSFERASE,ALT 18 U/L (12-78); ALBUMIN 3.6 g/dL (3.4-5.0); ALKALINE PHOSPHATASE 173 U/L (46-116); ASPARTATE AMNIOTRANSFERASE,AST 18 U/L (15-37); BILIRUBIN TOTAL 0.4 mg/dL (0.2-1.0); BLOOD UREA NITROGEN,BUN 10 mg/dL (7-18); CALCIUM 9.6 mg/dL (8.5-10.1); CARBON DIOXIDE,CO2 29 mmol/L (21-32); CHLORIDE,CL 92 mmol/L (100-108); CREATININE 0.9 mg/dL (0.6-1.0); EST CRCL DRUG DOSING (CG) 62.55 mL/min; ESTIMATED GFR 78 mL/min (>60); GLUCOSE RANDOM 89 mg/dL (74-106); POTASSIUM,K 3.9 mmol/L (3.6-5.2); PROTEIN TOTAL,TP 8.2 g/dL (6.4-8.2); SODIUM,NA 129 mmol/L (140-148)
[2022-12-11 21:12] LABS: ANION GAP 11.9 mmol/L (5.0-14.0)
[2022-12-11] MEDS ORDERED: Aluminum Hydroxide/Magnesium Hydroxide/Simethicone Susp 30 ML Cup PO STA (21:38)
== END 2022-12-11 21:54 | disposition home or self-care (01) ==
LOC: JP.ED 19:57
DX: K70.31 Alcoholic cirrhosis of liver with ascites (principal); R14.0 Abdominal distension (gaseous); Z98.84 Bariatric surgery status; E87.1 Hypo-osmolality and hyponatremia; F17.210 Nicotine dependence, cigarettes, uncomplicated; I10 Essential (primary) hypertension; E66.9 Obesity, unspecified; Z88.1 Allergy status to other antibiotic agents; Z88.8 Allergy status to other drugs, medicaments and biological substances; J45.909 Unspecified asthma, uncomplicated; Z68.34 Body mass index [BMI] 34.0-34.9, adult
CPT/HCPCS: 36415; 80053; 81001; 82140; 83605; 83690; 85025; 99284; A9270

== ENCOUNTER 2023-01-09 17:40 | Emergency (ER) | payer MEDICAID ==
[2023-01-09 18:02] VITALS: BP 121/77; PULSE 84
[2023-01-09 19:04] LABS: BASOPHILS PERCENT AUTO 0.3 % (0.1-1.3); EOSINOPHILS PERCENT AUTO 3.5 % (0.0-5.4); HEMATOCRIT 35.4 % (34.3-46.0); HEMOGLOBIN 11.7 g/dL (11.2-15.5); IMMATURE GRAN PERCENT AUTO 0.3 % (0.0-0.7); LYMPHOCYTES ABSOLUTE AUTO 1.02 K/uL (0.8-3.3); LYMPHOCYTES PERCENT AUTO 35.7 % (11.4-47.7); MEAN CORPUSCULAR HEMOGLOBIN 28.9 pg (31.6-35.5); MEAN CORPUSCULAR HGB CONC 33.1 g/dL (31.6-35.5); MEAN CORPUSCULAR VOLUME 87.4 fL (81.4-99.0); MONOCYTES ABSOLUTE AUTO 0.33 K/uL (0.20-0.90); MONOCYTES PERCENT AUTO 11.5 % (3.3-12.6); NEUTROPHILS ABSOLUTE AUTO 1.39 K/uL (1.0-7.6); NEUTROPHILS PERCENT AUTO 48.7 % (40.0-78.1); PLATELET COUNT,PLT 156 K/uL (130-375); RED BLOOD CELL COUNT 4.05 M/uL (3.77-5.24); WHITE BLOOD CELL COUNT,WBC 2.9 K/uL (3.2-11.0)
[2023-01-09 19:07] LABS: BASOPHILS ABSOLUTE AUTO 0.01 K/uL (0.00-0.10); IMMATURE GRAN ABSOLUTE AUTO 0.01 K/uL (0.00-0.23)
[2023-01-09 19:25] LABS: A/G RATIO 0.8 (1.2-2.2); ALANINE AMINOTRANSFERASE,ALT 9 U/L (12-78); ALBUMIN 3.6 g/dL (3.4-5.0); ALKALINE PHOSPHATASE 148 U/L (46-116); ANION GAP 12.9 mmol/L (5.0-14.0); ASPARTATE AMNIOTRANSFERASE,AST 18 U/L (15-37); BILIRUBIN TOTAL 0.4 mg/dL (0.2-1.0); BLOOD UREA NITROGEN,BUN 10 mg/dL (7-18); CALCIUM 9.1 mg/dL (8.5-10.1); CARBON DIOXIDE,CO2 27 mmol/L (21-32); CHLORIDE,CL 96 mmol/L (100-108); CREATININE 0.9 mg/dL (0.6-1.0); EST CRCL DRUG DOSING (CG) 62.55 mL/min; ESTIMATED GFR 78 mL/min (>60); GLUCOSE RANDOM 87 mg/dL (74-106); MAGNESIUM 1.7 mg/dL (1.8-2.4); POTASSIUM,K 3.9 mmol/L (3.6-5.2); PROTEIN TOTAL,TP 8.3 g/dL (6.4-8.2); SODIUM,NA 132 mmol/L (140-148)
[2023-01-09] MEDS ORDERED: Magnesium Oxide 400 MG Tab PO ONE (19:39)
== END 2023-01-09 20:52 | disposition home or self-care (01) ==
LOC: JP.ED 17:40
DX: R10.84 Generalized abdominal pain (principal); E83.42 Hypomagnesemia; I10 Essential (primary) hypertension; J45.909 Unspecified asthma, uncomplicated; K21.9 Gastro-esophageal reflux disease without esophagitis; E03.9 Hypothyroidism, unspecified; F17.210 Nicotine dependence, cigarettes, uncomplicated; E66.9 Obesity, unspecified; Z68.33 Body mass index [BMI] 33.0-33.9, adult; Z88.1 Allergy status to other antibiotic agents; Z88.4 Allergy status to anesthetic agent; Z79.899 Other long term (current) drug therapy
CPT/HCPCS: 36415; 80053; 82140; 83690; 83735; 85025; 99283; 99284; A9270

== ENCOUNTER 2023-04-20 09:18 | Emergency (ER) | payer MEDICAID, SELFPAY ==
[2023-04-20 10:21] LABS: APPEARANCE,URINE CLEAR (CLEAR); BILIRUBIN,URINE NEGATIVE (NEGATIVE); COLOR,URINE YELLOW (YELLOW); GLUCOSE,URINE NEGATIVE (NEGATIVE); KETONES,URINE NEGATIVE (NEGATIVE); LEUKOCYTE ESTERASE,URINE SMALL (NEGATIVE); NITRITE,URINE NEGATIVE (NEGATIVE); OCCULT BLOOD,URINE NEGATIVE (NEGATIVE); PROTEIN,URINE NEGATIVE (NEGATIVE); UROBILINOGEN,URINE 0.2 EU/dL (0.2-1.0)
[2023-04-20 10:28] LABS: BASOPHILS PERCENT AUTO 0.2 % (0.1-1.3); EOSINOPHILS ABSOLUTE AUTO 0.04 K/uL (0.00-0.40); HEMATOCRIT 30.2 % (34.3-46.0); HEMOGLOBIN 9.9 g/dL (11.2-15.5); IMMATURE GRAN PERCENT AUTO 0.2 % (0.0-0.7); LYMPHOCYTES ABSOLUTE AUTO 1.23 K/uL (0.8-3.3); LYMPHOCYTES PERCENT AUTO 29.8 % (11.4-47.7); MEAN CORPUSCULAR HEMOGLOBIN 28.2 pg (31.6-35.5); MEAN CORPUSCULAR HGB CONC 32.8 g/dL (31.6-35.5); MONOCYTES ABSOLUTE AUTO 0.42 K/uL (0.20-0.90); MONOCYTES PERCENT AUTO 10.2 % (3.3-12.6); NEUTROPHILS ABSOLUTE AUTO 2.42 K/uL (1.0-7.6); NEUTROPHILS PERCENT AUTO 58.6 % (40.0-78.1); PLATELET COUNT,PLT 143 K/uL (130-375); RED BLOOD CELL COUNT 3.51 M/uL (3.77-5.24); WHITE BLOOD CELL COUNT,WBC 4.1 K/uL (3.2-11.0)
[2023-04-20 10:29] LABS: BASOPHILS ABSOLUTE AUTO 0.01 K/uL (0.00-0.10)
[2023-04-20 10:30] LABS: AMPHETAMINES SCREEN, URINE NEGATIVE (NEGATIVE); BARBITURATE SCREEN,URINE NEGATIVE (NEGATIVE); BENZODIAZEPINES SCREEN,URINE NEGATIVE (NEGATIVE); METHADONE SCREEN, URINE NEGATIVE (NEGATIVE); METHAMPHETAMINES SCREEN, URINE NEGATIVE (NEGATIVE); OXYCODONE SCREEN,URINE NEGATIVE (NEGATIVE); PROPOXYPHENE SCREEN,URINE NEGATIVE (NEGATIVE); THC SCREEN,URINE 50 NG/ML NEGATIVE (NEGATIVE)
[2023-04-20 10:30] LABS: AMORPHOUS SEDIMENT,URINE NOT SEEN; BACTERIA,URINE FEW; EPITHELIAL CELLS,URINE NOT SEEN; MUCUS,URINE NOT SEEN; RBC,URINE 0-5 (0-5)
[2023-04-20 10:30] LABS: IMMATURE GRAN ABSOLUTE AUTO 0.01 K/uL (0.00-0.23)
[2023-04-20] MEDS: oxyCODONE 5 MG Tab PO ONE (10:31)
[2023-04-20 10:42] LABS: INR 1.2; PROTHROMBIN TIME 11.6 sec (9.2-10.6)
[2023-04-20 10:53] LABS: A/G RATIO 0.7 (1.2-2.2); ALANINE AMINOTRANSFERASE,ALT 13 U/L (12-78); ALBUMIN 3.1 g/dL (3.4-5.0); ALKALINE PHOSPHATASE 131 U/L (46-116); ASPARTATE AMNIOTRANSFERASE,AST 24 U/L (15-37); BILIRUBIN TOTAL 0.3 mg/dL (0.2-1.0); BLOOD UREA NITROGEN,BUN 4 mg/dL (7-18); CALCIUM 8.3 mg/dL (8.5-10.1); CARBON DIOXIDE,CO2 25 mmol/L (21-32); CHLORIDE,CL 97 mmol/L (100-108); CREATININE 0.7 mg/dL (0.6-1.0); EST CRCL DRUG DOSING (CG) 79.54 mL/min; ESTIMATED GFR 105 mL/min (>60); GLUCOSE RANDOM 74 mg/dL (74-106); POTASSIUM,K 3.1 mmol/L (3.6-5.2); PRO B-TYPE NATRIUR PEPT,BNPPRO 98 pg/mL (5-125); PROTEIN TOTAL,TP 7.4 g/dL (6.4-8.2); SODIUM,NA 130 mmol/L (140-148)
[2023-04-20 10:55] LABS: ANION GAP 11.1 mmol/L (5.0-14.0)
[2023-04-20 11:13] LABS: CORONAVIRUS COVID-19 NAA NEGATIVE (NEGATIVE); INFLUENZA A NAA NEGATIVE (NEGATIVE); INFLUENZA B NAA NEGATIVE (NEGATIVE); RESPIRATORY SYNCYTIAL VIR NAA NEGATIVE (NEGATIVE)
[2023-04-20] MEDS ORDERED: NS + KCl 20mEq/L 500 ML IV SCH (11:15)
[2023-04-20] MEDS: NS + KCl 20mEq/L 1,000 ML IV SCH (12:42)
[2023-04-20] MEDS: Magnesium Sulfate/Water 2 GM in Premix Bag 1 BAG IV ONE (12:43)
[2023-04-20] MEDS: traMADol 50 MG Tab PO ONE (14:44)
[2023-04-20 14:46] VITALS: BP 99/57; PULSE 65
[2023-04-20 15:18] LABS: CALCIUM 8.3 mg/dL (8.5-10.1); CREATININE 0.7 mg/dL (0.6-1.0); EST CRCL DRUG DOSING (CG) 79.54 mL/min; MAGNESIUM 2.3 mg/dL (1.8-2.4); POTASSIUM,K 3.2 mmol/L (3.6-5.2)
[2023-04-20 15:19] LABS: ANION GAP 10.2 mmol/L (5.0-14.0)
== END 2023-04-20 15:41 | disposition home or self-care (01) ==
LOC: JP.ED 09:18
DX: K52.9 Noninfective gastroenteritis and colitis, unspecified (principal); E83.42 Hypomagnesemia; E87.6 Hypokalemia; I10 Essential (primary) hypertension; K21.9 Gastro-esophageal reflux disease without esophagitis; E03.9 Hypothyroidism, unspecified; Z79.899 Other long term (current) drug therapy; F17.210 Nicotine dependence, cigarettes, uncomplicated; Z88.1 Allergy status to other antibiotic agents; Z88.4 Allergy status to anesthetic agent
CPT/HCPCS: 0241U; 36415; 71045; 74021; 80048; 80053; 80305; 80307; 81001; 82140; 83605; 83690; 83735; 83880; 85025; 85379; 85610; 96365; 96366; 96368; 99284; A9270; J3475; J3480

== ENCOUNTER 2023-05-25 20:34 | Emergency (ER) | payer MEDICAID ==
[2023-05-25 20:47] VITALS: BP 116/70; PULSE 82
[2023-05-25] MEDS: HYDROmorphone 1 MG/ML Syringe IM ONE (22:46)
== END 2023-05-25 23:08 | disposition home or self-care (01) ==
LOC: JP.ED 20:34
DX: K52.9 Noninfective gastroenteritis and colitis, unspecified (principal); R51.9 Headache, unspecified; I10 Essential (primary) hypertension; K21.9 Gastro-esophageal reflux disease without esophagitis; F17.210 Nicotine dependence, cigarettes, uncomplicated; Z88.1 Allergy status to other antibiotic agents; Z88.8 Allergy status to other drugs, medicaments and biological substances; Z86.19 Personal history of other infectious and parasitic diseases; Z90.49 Acquired absence of other specified parts of digestive tract; Z90.710 Acquired absence of both cervix and uterus
CPT/HCPCS: 96372; 99283; J1170

== ENCOUNTER 2024-02-16 16:02 | Emergency (ER) | payer MEDICARE ==
[2024-02-16] MEDS: traMADol 50 MG Tab PO ONE (18:11)
[2024-02-16 18:21] VITALS: BP 116/84; PULSE 70
[2024-02-16 18:26] LABS: AMPHETAMINES SCREEN, URINE NEGATIVE (NEGATIVE); BARBITURATE SCREEN,URINE NEGATIVE (NEGATIVE); BENZODIAZEPINES SCREEN,URINE NEGATIVE (NEGATIVE); METHAMPHETAMINES SCREEN, URINE NEGATIVE (NEGATIVE)
[2024-02-16 18:27] LABS: METHADONE SCREEN, URINE NEGATIVE (NEGATIVE); OXYCODONE SCREEN,URINE PRESUMPTIVE POSITIVE (NEGATIVE); PROPOXYPHENE SCREEN,URINE NEGATIVE (NEGATIVE); THC SCREEN,URINE 50 NG/ML NEGATIVE (NEGATIVE)
== END 2024-02-16 19:42 | disposition home or self-care (01) ==
LOC: JP.ED 16:02
DX: S42.031A Displaced fracture of lateral end of right clavicle, initial encounter for closed fracture (principal); S69.92XA Unspecified injury of left wrist, hand and finger(s), initial encounter; I10 Essential (primary) hypertension; J45.909 Unspecified asthma, uncomplicated; K21.9 Gastro-esophageal reflux disease without esophagitis; F17.210 Nicotine dependence, cigarettes, uncomplicated; Z90.49 Acquired absence of other specified parts of digestive tract; Z90.710 Acquired absence of both cervix and uterus; Z88.1 Allergy status to other antibiotic agents; Z88.8 Allergy status to other drugs, medicaments and biological substances; Z79.890 Hormone replacement therapy; Z79.899 Other long term (current) drug therapy; W06.XXXA Fall from bed, initial encounter
CPT/HCPCS: 70450; 72125; 72128; 73030; 73110; 76377; 80305; 99284; A9270

== ENCOUNTER 2024-08-12 13:06 | Inpatient (IN) | payer MEDICARE, MEDICAID ==
[2024-08-12 13:25] LABS: EOSINOPHILS PERCENT AUTO 0.3 % (0.0-5.4); HEMATOCRIT 32.3 % (34.3-46.0); HEMOGLOBIN 11.4 g/dL (11.2-15.5); IMMATURE GRAN PERCENT AUTO 0.3 % (0.0-0.7); LYMPHOCYTES PERCENT AUTO 15.2 % (11.4-47.7); MEAN CORPUSCULAR HEMOGLOBIN 32.1 pg (31.6-35.5); MEAN CORPUSCULAR HGB CONC 35.3 g/dL (31.6-35.5); MONOCYTES ABSOLUTE AUTO 0.19 K/uL (0.20-0.90); MONOCYTES PERCENT AUTO 4.8 % (3.3-12.6); NEUTROPHILS ABSOLUTE AUTO 3.15 K/uL (1.0-7.6); NEUTROPHILS PERCENT AUTO 79.4 % (40.0-78.1); PLATELET COUNT,PLT 140 K/uL (130-375); RED BLOOD CELL COUNT 3.55 M/uL (3.77-5.24)
[2024-08-12 13:28] LABS: APPEARANCE,URINE CLOUDY (CLEAR); BILIRUBIN,URINE NEGATIVE (NEGATIVE); COLOR,URINE YELLOW (YELLOW); GLUCOSE,URINE NEGATIVE (NEGATIVE); KETONES,URINE NEGATIVE (NEGATIVE); LEUKOCYTE ESTERASE,URINE NEGATIVE (NEGATIVE); NITRITE,URINE POSITIVE (NEGATIVE); OCCULT BLOOD,URINE TRACE-INTACT (NEGATIVE); PROTEIN,URINE NEGATIVE (NEGATIVE); UROBILINOGEN,URINE 0.2 EU/dL (0.2-1.0)
[2024-08-12 13:28] LABS: EOSINOPHILS ABSOLUTE AUTO 0.01 K/uL (0.00-0.40); IMMATURE GRAN ABSOLUTE AUTO 0.01 K/uL (0.00-0.23)
[2024-08-12 13:34] LABS: AMORPHOUS SEDIMENT,URINE NOT SEEN; BACTERIA,URINE MANY; EPITHELIAL CELLS,URINE NOT SEEN; MUCUS,URINE NOT SEEN; RBC,URINE 0-5 (0-5)
[2024-08-12 13:35] LABS: AMPHETAMINES SCREEN, URINE NEGATIVE (NEGATIVE); BARBITURATE SCREEN,URINE NEGATIVE (NEGATIVE); BENZODIAZEPINES SCREEN,URINE NEGATIVE (NEGATIVE); METHADONE SCREEN, URINE NEGATIVE (NEGATIVE); METHAMPHETAMINES SCREEN, URINE NEGATIVE (NEGATIVE); OXYCODONE SCREEN,URINE PRESUMPTIVE POSITIVE (NEGATIVE); PROPOXYPHENE SCREEN,URINE NEGATIVE (NEGATIVE); THC SCREEN,URINE 50 NG/ML NEGATIVE (NEGATIVE)
[2024-08-12] MEDS: Sodium Chloride 0.9% 1,000 ML IV ONE (13:41)
[2024-08-12] MEDS: cefTRIAXone 2 GM in Sodium Chloride 0.9% 50 ML IV ONE (13:45)
[2024-08-12] MEDS: Sodium Chloride 0.9% 10 ML Syringe FLUSH PRN (13:46)
[2024-08-12 13:47] LABS: A/G RATIO 1.1 (1.2-2.2); ALANINE AMINOTRANSFERASE,ALT 20 U/L (12-78); ALBUMIN 3.7 g/dL (3.4-5.0); ALKALINE PHOSPHATASE 110 U/L (46-116); ASPARTATE AMNIOTRANSFERASE,AST 21 U/L (15-37); BILIRUBIN TOTAL 0.7 mg/dL (0.2-1.0); BLOOD UREA NITROGEN,BUN 4 mg/dL (7-18); CALCIUM 8.6 mg/dL (8.5-10.1); CARBON DIOXIDE,CO2 22 mmol/L (21-32); CHLORIDE,CL 81 mmol/L (100-108); CREATININE 0.5 mg/dL (0.6-1.0); EST CRCL DRUG DOSING (CG) 105.28 mL/min; ESTIMATED GFR 113 mL/min (>60); GLUCOSE RANDOM 126 mg/dL (74-106); POTASSIUM,K 3.6 mmol/L (3.6-5.2)
[2024-08-12 13:48] LABS: ANION GAP 13.6 mmol/L (5.0-14.0); C-REACTIVE PROTEIN < 0.50 mg/dL (<0.50); SODIUM,NA 113 mmol/L (140-148)
[2024-08-12 13:52] LABS: LACTIC ACID 2.1 mmol/L (0.4-2.0)
[2024-08-12] MEDS: Naloxone 0.4 MG/ML SDV IVPUSH ONE (14:15)
[2024-08-12] MEDS ORDERED: Magnesium Hydroxide 400 MG/5 ML Susp 30 ML Cup PO PRN ×2 (15:20→15:22)
[2024-08-12] MEDS ORDERED: Acetaminophen 325 MG Tab PO PRN ×2 (15:20→15:22)
[2024-08-12] MEDS ORDERED: Ondansetron 4 MG/2 ML SDV IV PRN ×2 (15:20→15:22)
[2024-08-12] MEDS ORDERED: Sennosides/Docusate Sodium 50-8.6 MG Tab PO PRN ×2 (15:20→15:22)
[2024-08-12] MEDS ORDERED: LORazepam 2 MG/ML SDV IVPUSH PRN ×2 (15:20→15:22)
[2024-08-12] MEDS ORDERED: Ondansetron 4 MG Tab.DIS PO PRN ×2 (15:20→15:22)
[2024-08-12] MEDS ORDERED: Albuterol 0.083% 2.5 MG/3 ML Neb Soln NEB PRN (15:22)
[2024-08-12] MEDS ORDERED: Morphine 2 MG/ML SYRINGE IVPUSH PRN (15:22)
[2024-08-12] MEDS ORDERED: hydrOXYzine HCl 25 MG Tab PO PRN (15:26)
[2024-08-12] MEDS ORDERED: oxyCODONE 5 MG Tab PO PRN (15:26)
[2024-08-12] MEDS: Sodium Chloride 3% 500 ML IV SCH (16:13)
[2024-08-12] MEDS ORDERED: Magnesium Sulfate 2 GM/50 mL 2 GM in Premix Bag 1 BAG IV SCH (16:45)
[2024-08-12] MEDS: Magnesium Sulfate 2 GM/50 mL 2 GM in Premix Bag 1 BAG IV SCH (17:16)
[2024-08-12] MEDS: Sodium Chloride 0.9% 1,000 ML IV SCH (21:35)
[2024-08-12] MEDS: Dicyclomine 10 MG Cap PO SCH (21:36)
[2024-08-12] MEDS: Potassium Chloride 20 MEQ Tab.ER PO SCH (21:36)
[2024-08-12] MEDS: Magnesium Oxide 400 MG Tab PO SCH (21:36)
[2024-08-12] MEDS: Gabapentin 300 MG Cap PO SCH (21:37)
[2024-08-12] MEDS: Pantoprazole 40 MG Tab.CR PO SCH (21:37)
[2024-08-12] MEDS: Acetaminophen 650 MG Supp RECTAL ONE (23:13)
[2024-08-12 23:31] LABS: FOLIC ACID 7.3 ng/ml (8.6-58.9)
[2024-08-13 06:03] LABS: HEMATOCRIT 34.2 % (34.3-46.0); HEMOGLOBIN 12.2 g/dL (11.2-15.5); MEAN CORPUSCULAR HEMOGLOBIN 32.3 pg (31.6-35.5); MEAN CORPUSCULAR HGB CONC 35.7 g/dL (31.6-35.5); MEAN CORPUSCULAR VOLUME 90.5 fL (81.4-99.0); RED BLOOD CELL COUNT 3.78 M/uL (3.77-5.24); WHITE BLOOD CELL COUNT,WBC 2.9 K/uL (3.2-11.0)
[2024-08-13 06:34] LABS: ALANINE AMINOTRANSFERASE,ALT 19 U/L (12-78); ALBUMIN 3.3 g/dL (3.4-5.0); ALKALINE PHOSPHATASE 105 U/L (46-116); ASPARTATE AMNIOTRANSFERASE,AST 23 U/L (15-37); BILIRUBIN TOTAL 0.3 mg/dL (0.2-1.0); BLOOD UREA NITROGEN,BUN 5 mg/dL (7-18); CALCIUM 9.1 mg/dL (8.5-10.1); CARBON DIOXIDE,CO2 29 mmol/L (21-32); CHLORIDE,CL 104 mmol/L (100-108); CREATININE 0.6 mg/dL (0.6-1.0); EST CRCL DRUG DOSING (CG) 87.73 mL/min; ESTIMATED GFR 109 mL/min (>60); GLUCOSE RANDOM 91 mg/dL (74-106); POTASSIUM,K 3.2 mmol/L (3.6-5.2); PROTEIN TOTAL,TP 6.7 g/dL (6.4-8.2); SODIUM,NA 137 mmol/L (140-148)
[2024-08-13 06:36] LABS: ANION GAP 7.2 mmol/L (5.0-14.0)
[2024-08-13] MEDS: Potassium Chloride 10 MEQ in Premix Bag 1 BAG IV SCH ×2 (07:32→12:10)
[2024-08-13] MEDS: Furosemide 20 MG Tab PO SCH (08:56)
[2024-08-13] MEDS: Levothyroxine 88 MCG Tab PO SCH (08:56)
[2024-08-13] MEDS: Citalopram 20 MG Tab PO SCH (08:56)
[2024-08-13] MEDS: cefTRIAXone 1 GM in Sodium Chloride 0.9% 50 ML IV SCH (09:33)
[2024-08-13 12:10] VITALS: BP 103/63; PULSE 65
== END 2024-08-13 13:45 | disposition home or self-care (01) | DRG 641 ==
LOC: JP.ED 13:06 → JP.ICU 14:33
PROVIDERS: ADMIT Hospitalist; ATTEND Hospitalist
DX: E87.1 Hypo-osmolality and hyponatremia (principal); K86.1 Other chronic pancreatitis; N30.00 Acute cystitis without hematuria; E83.42 Hypomagnesemia; K74.60 Unspecified cirrhosis of liver; I10 Essential (primary) hypertension; J45.909 Unspecified asthma, uncomplicated; K21.9 Gastro-esophageal reflux disease without esophagitis; G43.909 Migraine, unspecified, not intractable, without status migrainosus; F41.9 Anxiety disorder, unspecified; F32.A Depression, unspecified; E55.9 Vitamin D deficiency, unspecified; D64.9 Anemia, unspecified; E87.6 Hypokalemia; E03.9 Hypothyroidism, unspecified; E53.8 Deficiency of other specified B group vitamins; E61.1 Iron deficiency; E86.0 Dehydration; G89.29 Other chronic pain; Z72.0 Tobacco use; Z90.49 Acquired absence of other specified parts of digestive tract; Z88.8 Allergy status to other drugs, medicaments and biological substances; Z98.51 Tubal ligation status; Z90.710 Acquired absence of both cervix and uterus; Z98.891 History of uterine scar from previous surgery; Z98.890 Other specified postprocedural states; Z79.899 Other long term (current) drug therapy
CPT/HCPCS: 36415; 51702; 70450; 80053; 80143; 80179; 80305-QW; 80307; 81001; 82140; 82550; 82607; 82746; 83605; 83735; 83935; 84295; 84443; 85025; 85027; 86140; 87040; 87086; 87186; 96365; 96375; 99223; 99239; 99285-25; A9270-GY; J0696; J2310; J3475; J3480; J7030; J7131

== ENCOUNTER 2024-09-04 06:12 | Day surgery (SDC) | payer MEDICARE, MEDICAID ==
[2024-09-04 06:37] LABS: HEMATOCRIT 33.8 % (34.3-46.0); HEMOGLOBIN 11.6 g/dL (11.2-15.5); MEAN CORPUSCULAR HEMOGLOBIN 31.9 pg (31.6-35.5); MEAN CORPUSCULAR HGB CONC 34.3 g/dL (31.6-35.5); MEAN CORPUSCULAR VOLUME 92.9 fL (81.4-99.0); RED BLOOD CELL COUNT 3.64 M/uL (3.77-5.24); WHITE BLOOD CELL COUNT,WBC 3.6 K/uL (3.2-11.0)
[2024-09-04] MEDS ORDERED: ceFAZolin 2 GM in Sodium Chloride 0.9% 50 ML IV ONE (06:45)
[2024-09-04] MEDS: Nozin Nasal Sanitizer NASBOTH ONE (06:56)
[2024-09-04 06:57] LABS: A/G RATIO 1.2 (1.2-2.2); ALANINE AMINOTRANSFERASE,ALT 19 U/L (12-78); ALBUMIN 3.8 g/dL (3.4-5.0); ALKALINE PHOSPHATASE 122 U/L (46-116); ASPARTATE AMNIOTRANSFERASE,AST 14 U/L (15-37); BILIRUBIN TOTAL 0.3 mg/dL (0.2-1.0); BLOOD UREA NITROGEN,BUN 8 mg/dL (7-18); CALCIUM 9.5 mg/dL (8.5-10.1); CARBON DIOXIDE,CO2 27 mmol/L (21-32); CHLORIDE,CL 90 mmol/L (100-108); CREATININE 0.6 mg/dL (0.6-1.0); EST CRCL DRUG DOSING (CG) 91.76 mL/min; ESTIMATED GFR 109 mL/min (>60); GLUCOSE RANDOM 82 mg/dL (74-106); POTASSIUM,K 3.5 mmol/L (3.6-5.2); SODIUM,NA 125 mmol/L (140-148)
[2024-09-04 06:58] LABS: ANION GAP 11.5 mmol/L (5.0-14.0)
[2024-09-04] MEDS: Lactated Ringers 1,000 ML IV SCH (07:16)
[2024-09-04] MEDS ORDERED: fentaNYL 250 MCG/5 ML SDV ONE (07:37)
[2024-09-04] MEDS ORDERED: Neostigmine Methylsulfate 10 MG/10 ML MDV ONE (07:38)
[2024-09-04] MEDS ORDERED: Glycopyrrolate 0.2 MG/ML 5 ML MDV ONE (07:38)
[2024-09-04] MEDS ORDERED: Ondansetron 4 MG/2 ML SDV ONE (07:38)
[2024-09-04] MEDS ORDERED: Rocuronium 50 MG/5 ML Vial ONE (07:38)
[2024-09-04] MEDS ORDERED: Dexamethasone 4 MG/ML SDV ONE (07:38)
[2024-09-04] MEDS ORDERED: Propofol 200 MG/20 ML SDV ONE (07:38)
[2024-09-04] MEDS: ceFAZolin 2 GM in Premix Bag 1 BAG IV ONE (07:45)
[2024-09-04] MEDS: Bupivacaine 0.5% 30 ML SDV ONE (09:00)
[2024-09-04] MEDS: fentaNYL 50 MCG/ML SDV IVPUSH ONE (10:31)
[2024-09-04] MEDS: oxyCODONE 5 MG Tab PO ONE (11:01)
[2024-09-04 13:24] VITALS: BP 92/51; PULSE 65
== END 2024-09-04 13:05 | disposition home or self-care (01) ==
LOC: JP.SDS 06:12
PROVIDERS: ATTEND Specialist
DX: S52.592P Other fractures of lower end of left radius, subsequent encounter for closed fracture with malunion (principal); I10 Essential (primary) hypertension; E66.9 Obesity, unspecified; E03.9 Hypothyroidism, unspecified; F17.210 Nicotine dependence, cigarettes, uncomplicated; Z88.8 Allergy status to other drugs, medicaments and biological substances; Z88.1 Allergy status to other antibiotic agents; Z79.899 Other long term (current) drug therapy; Z79.890 Hormone replacement therapy
CPT/HCPCS: 01830; 25405; 36415; 76000; 80053; 85027; A9270; C1713; J0665; J0690; J1100; J1596; J2405; J2704; J2710; J3010; J7120; J3490

== ENCOUNTER 2024-10-11 12:44 | Inpatient (IN) | payer MEDICARE, MEDICAID ==
[2024-10-11 13:20] LABS: BASOPHILS PERCENT AUTO 0.2 % (0.1-1.3); EOSINOPHILS ABSOLUTE AUTO 0.04 K/uL (0.00-0.40); EOSINOPHILS PERCENT AUTO 0.8 % (0.0-5.4); IMMATURE GRAN PERCENT AUTO 0.4 % (0.0-0.7); LYMPHOCYTES ABSOLUTE AUTO 0.86 K/uL (0.8-3.3); LYMPHOCYTES PERCENT AUTO 17.7 % (11.4-47.7); MONOCYTES ABSOLUTE AUTO 0.25 K/uL (0.20-0.90); MONOCYTES PERCENT AUTO 5.1 % (3.3-12.6); NEUTROPHILS ABSOLUTE AUTO 3.69 K/uL (1.0-7.6); NEUTROPHILS PERCENT AUTO 75.8 % (40.0-78.1); PLATELET COUNT,PLT 194 K/uL (130-375); RED BLOOD CELL COUNT 3.77 M/uL (3.77-5.24); WHITE BLOOD CELL COUNT,WBC 4.9 K/uL (3.2-11.0)
[2024-10-11 13:30] LABS: BASOPHILS ABSOLUTE AUTO 0.01 K/uL (0.00-0.10); IMMATURE GRAN ABSOLUTE AUTO 0.02 K/uL (0.00-0.23)
[2024-10-11 13:33] LABS: A/G RATIO 1.0 (1.2-2.2); ALANINE AMINOTRANSFERASE,ALT 22 U/L (12-78); ASPARTATE AMNIOTRANSFERASE,AST 23 U/L (15-37); BILIRUBIN TOTAL 0.7 mg/dL (0.2-1.0); BLOOD UREA NITROGEN,BUN 2 mg/dL (7-18); CARBON DIOXIDE,CO2 24 mmol/L (21-32); CHLORIDE,CL 77 mmol/L (100-108); CREATININE 0.6 mg/dL (0.6-1.0); EST CRCL DRUG DOSING (CG) 103.84 mL/min; ESTIMATED GFR 109 mL/min (>60); GLUCOSE RANDOM 118 mg/dL (74-106); POTASSIUM,K 3.7 mmol/L (3.6-5.2); PROTEIN TOTAL,TP 7.2 g/dL (6.4-8.2)
[2024-10-11 13:36] LABS: SODIUM,NA 110 mmol/L (140-148)
[2024-10-11 13:54] LABS: APPEARANCE,URINE CLEAR (CLEAR); GLUCOSE,URINE NEGATIVE (NEGATIVE); OCCULT BLOOD,URINE TRACE-INTACT (NEGATIVE)
[2024-10-11 13:59] LABS: AMPHETAMINES SCREEN, URINE NEGATIVE (NEGATIVE); METHADONE SCREEN, URINE NEGATIVE (NEGATIVE); METHAMPHETAMINES SCREEN, URINE NEGATIVE (NEGATIVE); THC SCREEN,URINE 50 NG/ML NEGATIVE (NEGATIVE)
[2024-10-11 14:00] LABS: OXYCODONE SCREEN,URINE PRESUMPTIVE POSITIVE (NEGATIVE); PROPOXYPHENE SCREEN,URINE NEGATIVE (NEGATIVE)
[2024-10-11] MEDS ORDERED: Ondansetron 4 MG Tab.DIS PO PRN (15:26)
[2024-10-11] MEDS ORDERED: Sennosides/Docusate Sodium 50-8.6 MG Tab PO PRN (15:26)
[2024-10-11] MEDS ORDERED: Magnesium Hydroxide 400 MG/5 ML Susp 30 ML Cup PO PRN (15:26)
[2024-10-11] MEDS ORDERED: Ondansetron 4 MG/2 ML SDV IV PRN (15:26)
[2024-10-11] MEDS: LORazepam 2 MG/ML SDV IVPUSH PRN ×2 (15:30→18:57)
[2024-10-11] MEDS: LORazepam 2 MG/ML SDV ONE (15:34)
[2024-10-11] MEDS: Magnesium Sulfate 2 GM/50 mL 2 GM in Premix Bag 1 BAG IV SCH (18:21)
[2024-10-11] MEDS ORDERED: Lactulose Soln 10 GM/15 ML 15 ML UD Cup PO SCH (21:00)
[2024-10-12 05:46] LABS: PLATELET COUNT,PLT 176.0 K/uL (130-375); RED BLOOD CELL COUNT 3.89 M/uL (3.77-5.24); WHITE BLOOD CELL COUNT,WBC 4.0 K/uL (3.2-11.0)
[2024-10-12 06:01] LABS: BLOOD UREA NITROGEN,BUN 3.0 mg/dL (7-18); CARBON DIOXIDE,CO2 25.0 mmol/L (21-32); CHLORIDE,CL 87.0 mmol/L (100-108); CREATININE 0.5 mg/dL (0.6-1.0); EST CRCL DRUG DOSING (CG) 124.61 mL/min; ESTIMATED GFR 113.0 mL/min (>60); GLUCOSE RANDOM 119.0 mg/dL (74-106); POTASSIUM,K 3.5 mmol/L (3.6-5.2); SODIUM,NA 120.0 mmol/L (140-148)
[2024-10-12] MEDS: Cyanocobalamin (Vitamin B12) 1,000 MCG Tab SL SCH (09:19)
[2024-10-13 05:47] LABS: BLOOD UREA NITROGEN,BUN 8.0 mg/dL (7-18); CARBON DIOXIDE,CO2 29.0 mmol/L (21-32); CHLORIDE,CL 101.0 mmol/L (100-108); CREATININE 0.6 mg/dL (0.6-1.0); EST CRCL DRUG DOSING (CG) 103.84 mL/min; ESTIMATED GFR 109.0 mL/min (>60); GLUCOSE RANDOM 97.0 mg/dL (74-106); POTASSIUM,K 3.5 mmol/L (3.6-5.2); SODIUM,NA 136.0 mmol/L (140-148)
[2024-10-13] MEDS ORDERED: Sodium Chloride 0.9% 10 ML Syringe IV PRN (10:33)
[2024-10-13] MEDS ORDERED: Potassium Chloride 20 MEQ Tab.ER PO ONE (11:15)
[2024-10-13 13:06] VITALS: BP 105/69; PULSE 72
[2024-10-13] MEDS: Potassium Chloride 20 MEQ Tab.ER PO ONE (14:19)
== END 2024-10-13 17:03 | disposition home or self-care (01) | DRG 640 ==
LOC: JP.ED 12:44 → JP.ICU 14:45 → UNDOADMIN 15:26 → JP.ICU 15:26 → JP.ED 15:30 → UNDODISIN 10-13 17:03
PROVIDERS: ADMIT Internal Medicine; ATTEND Internal Medicine
DX: E87.1 Hypo-osmolality and hyponatremia (principal); G93.41 Metabolic encephalopathy; F05 Delirium due to known physiological condition; I10 Essential (primary) hypertension; J45.909 Unspecified asthma, uncomplicated; E03.9 Hypothyroidism, unspecified; G43.909 Migraine, unspecified, not intractable, without status migrainosus; F41.9 Anxiety disorder, unspecified; F32.A Depression, unspecified; K21.9 Gastro-esophageal reflux disease without esophagitis; K70.30 Alcoholic cirrhosis of liver without ascites; G89.29 Other chronic pain; Z88.1 Allergy status to other antibiotic agents; Z86.0100 Personal history of colon polyps, unspecified; Z88.4 Allergy status to anesthetic agent; Z88.8 Allergy status to other drugs, medicaments and biological substances; Z87.81 Personal history of (healed) traumatic fracture; Z98.84 Bariatric surgery status; Z90.49 Acquired absence of other specified parts of digestive tract; Z90.710 Acquired absence of both cervix and uterus; Z98.51 Tubal ligation status; Z79.891 Long term (current) use of opiate analgesic; Z79.899 Other long term (current) drug therapy; Z98.890 Other specified postprocedural states; Z79.52 Long term (current) use of systemic steroids; Z79.890 Hormone replacement therapy; T50.0X5A Adverse effect of mineralocorticoids and their antagonists, initial encounter; T50.1X5A Adverse effect of loop [high-ceiling] diuretics, initial encounter; T47.1X5A Adverse effect of other antacids and anti-gastric-secretion drugs, initial encounter; Y92.89 Other specified places as the place of occurrence of the external cause; Z86.59 Personal history of other mental and behavioral disorders; Z79.51 Long term (current) use of inhaled steroids
CPT/HCPCS: 36415; 80053; 80305; 80307; 81001; 82140; 83735; 83880; 85025; 99285 ×2; J7131; 80048; 84295; 84300; 85027; 99222; 99232; 99238; A9270-GY; J1630; J1650; J2060; J3475; J7030